=== PATIENT | male | born 1965 | race Caucasian/White ===

== ENCOUNTER 2022-10-28 14:09 | Emergency (ER) | payer OTHER, SELFPAY ==
[2022-10-28 15:26] LABS: Absolute Lymphocytes (CBC) 2.2 K/uL (0.7-4.9); Hematocrit 38.6 % (39.6-49.0); Lymphocytes % 24.2 % (15.3-44.8); MPV 8.7 fL (7.6-11.3); RBC Red Blood Cell Count 4.33 M/uL (4.33-5.43)
--- NOTE | 2022-10-28 15:34 | RAD REPORT ---
EXAM DESCRIPTION: [facility] Single View10/28/2022 3:12 pm CLINICAL HISTORY: Chest pain FINDINGS: Mild bilateral pulmonary opacities. Heart is normal size IMPRESSION: Mild bilateral pulmonary opacities represent pulmonary edema or pneumonia
[2022-10-28 15:44] LABS: Potassium 4.2 mmol/L (3.5-5.1); Troponin High Sensitivity 22.5 pg/mL (<58.9)
[2022-10-28 16:03] LABS: SARS-COV-2 RT PCR NEGATIVE (NEGATIVE)
--- NOTE | 2022-10-28 18:26 | RAD REPORT ---
EXAM DESCRIPTION: CT - Chest For Pe Angio - 10/28/2022 6:07 pm CLINICAL HISTORY: Chest pain COMPARISON: None. TECHNIQUE: Dynamically enhanced axial 3 mm thick images of the chest were obtained during administra tion of <100> mL Isovue 370 IV contrast. Coronal and oblique reconstruction images were generated and reviewed. Exam utilizes a protocol for optimal evaluation of pulmonary arterial tree. Maximum intensity projections 3D imaging was utilized All CT scans are performed using dose optimization technique as appropriate and may include automated exposure control or mA/KV adjustment according to patient size. FINDINGS: A pulmonary embolus is not seen. A thoracic aortic aneurysm is not noted. Small bilateral pleural effusions. A pericardial effusion is not seen. Mild bilateral interstitial lung opacities. Cardiomegaly IMPRESSION: Negative for a pulmonary embolism. Mild CHF
--- NOTE | 2022-10-28 18:30 | RAD REPORT ---
EXAM DESCRIPTION: CT - Abdomen Pelvis W Contrast - 10/28/2022 6:07 pm CLINICAL HISTORY: Abdominal pain TECHNIQUE: Computed axial tomography of the abdomen pelvis was obtained. 100 cc Isovue-300 was admin istered intravenously. Oral contrast was not requested which limits evaluation of bowel and appendix All CT scans are performed using dose optimization technique as appropriate and may include automated exposure control or mA/KV adjustment according to patient size. FINDINGS: The liver, spleen, pancreas, adrenal and kidneys appear unremarkable. There is no evidence of diverticulitis. Cholelithiasis. Large right and small left inguinal hernias contain fat Small umbilical hernia IMPRESSION: Cholelithiasis Large right inguinal hernia
--- NOTE | 2022-10-28 21:17 | EDPHYS ---
Physician Documentation [facility] Name: Lb Epstein Age: 57 yrs Sex: Male : 1965 Arrival Date: 10/28/2022 Time: 14:24 Bed 14 Private MD: ED Physician Rashawn Rivera HPI: 10/28 14:32 This 57 yrs old Male presents to ER via EMS with complaints of Chest Pain. [facility] 14:32 The patient or guardian reports chest pain that is located primarily in the substernal [facility] area. Onset: gradually. Is a 57-year-old male with history of coronary artery disease the presents emerged part with complaints of substernal chest pain beginning earlier today. Patient states he has been having a cough for approximately a week today began to feel some tingling on the left side of his chest. Patient does have a history of 2 stents.. Historical: - Allergies: 14:28 Morphine; headaches, hives; ph - PMHx: 14:28 Hypertensive disorder; [place]; ph - PSHx: 14:28 Cardiac stents x2; ph - Immunization history:: Adult Immunizations unknown. - Social history:: Smoking status: Patient reports the use of cigarette tobacco products, smokes one-half pack cigarettes per day. ROS: 14:32 Constitutional: Negative for fever, chills, and weight loss. jmm 14:32 Cardiovascular: Positive for chest pain. 14:32 Respiratory: Positive for cough. 14:32 All other systems are negative. Exam: 14:32 Constitutional: This is a well developed, well nourished patient who is awake, alert, jmm and in no acute distress. Head/Face: atraumatic. Eyes: EOMI, no conjunctival erythema appreciated ENT: Moist Mucus Membranes Neck: Trachea midline, Supple Chest/axilla: Normal chest wall appearance and motion. Cardiovascular: Regular rate and rhythm. No edema appreciated Respiratory: Normal respirations, no respiratory distress appreciated Abdomen/GI: Non distended Back: Normal ROM Skin: General appearance color normal MS/ Extremity: Moves all extremities, no obvious deformities appreciated, no edema noted to the lower extremities Neuro: Awake and alert Psych: Behavior is normal, Mood is normal, Patient is cooperative and pleasant Vital Signs: 14:24 BP 142 / 83; Pulse 95; Resp 18; Temp 98.0; Pulse Ox 98% on R/A; Weight 56.7 kg; Height ph 6 ft. 1 in. (185.42 cm); 15:00 BP 130 / 100; Pulse 75; Resp 16; Pulse Ox 98% ; db 16:00 BP 123 / 90; Pulse 86; Resp 16; Pulse Ox 99% on R/A; db 17:00 BP 132 / 96; Pulse 79; Resp 16; Pulse Ox 98% on R/A; db 21:30 BP 141 / 98; Pulse 94; Resp 17; Temp 98(O); Pulse Ox 100% ; Pain 0/10; ke1 14:24 Body Mass Index 16.49 (56.70 kg, 185.42 cm) ph MDM: 14:32 Patient medically screened. [facility] 20:05 Transition of care: After a detail discussion of the patient's case, care is rosanna transferred to Marti Hunter [facility]. 21:12 Data reviewed: vital signs, nurses notes. snw 21:14 ED course: awaiting troponin that was never rec'd in the lab. Pt upset. States he told snw previous provider that he has been out of his medications x 4 months.. 21:26 ECG:. The patient was given aspirin in the Emergency Department. snw 21:27 Special discussion: Based on the patient's history, exam, and Dx evaluation, there is snw no indication for emergent intervention or inpatient Tx. It is understood by the patient/guardian that if the Sx's persist or worsen they need to return immediately for re-evaluation. Pt declines admission, will refill medications, RTED precautions discussed and pt voices understanding. 10/28 14:33 Order name: Basic Metabolic Panel; Complete Time: 15:55 [facility] 10/28 14:33 Order name: CBC with Diff; Complete Time: 15:32 [facility] 10/28 14:33 Order name: Troponin HS; Complete Time: 15:55 [facility] 10/28 14:33 Order name: XRAY Chest (1 view); Complete Time: 15:38 [facility] 10/28 14:33 Order name: COVID-19/FLU A+B; Complete Time: 16:07 [facility] 10/28 18:31 Order name: Troponin High Sensitivity; Complete Time: 21:32 [facility] 10/28 14:33 Order name: EKG; Complete Time: 14:33 [facility] 10/28 14:33 Order name: Cardiac monitoring; Complete Time: 15:17 [facility] 10/28 17:23 Order name: CT Chest For PE Angio; Complete Time: 18:30 [facility] 10/28 17:23 Order name: CT Abd/Pelvis - IV Contrast Only; Complete Time: 18:31 [facility] 10/28 14:33 Order name: EKG - Nurse/Tech; Complete Time: 15:17 [facility] 10/28 14:33 Order name: IV Saline Lock; Complete Time: 15:17 [facility] 10/28 14:33 Order name: Labs collected and sent; Complete Time: 15:17 [facility] 10/28 14:33 Order name: O2 Per Protocol; Complete Time: 15:18 [facility] 10/28 14:33 Order name: O2 Sat Monitoring; Complete Time: 15:18 jmm EC:26 Rate is 86 beats/min. Rhythm is irregular. Q waves are Present in leads II, III, aVF. snw Clinical impression: NSR w/ Non-specific ST/T Changes and Abnormal EKG without significant change. Administered Medications: 21:25 Drug: LaSIX (furosemide) 20 mg Route: PO; ke1 21:25 Drug: Aspirin Chewable Tablet 324 mg Route: PO; ke1 21:25 Drug: PlaVIX (clopidogrel) 75 mg Route: PO; ke1 21:25 Drug: Metoprolol 25 mg Route: PO; ke1 Disposition: 10/29 08:13 Co-signature as Attending Physician, Rashawn Rivera MD I agree with the assessment and gael plan of care. Disposition Summary: 10/28/22 21:16 Discharge Ordered Location: Home snw Condition: Stable snw Diagnosis - Atherosclerotic heart disease of [place] coronary artery with angina pectoris snw - Patient's unintentional underdosing of medication regimen for other reason snw Followup: snw - With: Private Physician - When: 1 - 2 days - Reason: Recheck today's complaints, Continuance of care, Re-evaluation by your physician Followup: snw - With: Emergency Department - When: As needed - Reason: Worsening of condition Discharge Instructions: - Discharge Summary Sheet snw - Angina snw - Aspirin and Your Heart snw - Potassium Content of Foods snw Forms: - Medication Reconciliation Form snw - Thank You Letter snw - Antibiotic Education snw - Prescription Opioid Use snw Prescriptions: - Plavix 75 mg Oral Tablet - take 1 tablet by ORAL route once daily; 20 tablet; Refills: 0, Product snw Selection Permitted - atorvastatin 20 mg Oral tablet - take 1 tablet by ORAL route once daily; 30 tablet; Refills: 0, Product snw Selection Permitted - Metoprolol Tartrate 25 mg Oral Tablet - take 1 tablet by ORAL route 2 times per day with a meal; 20 tablet; Refills: 0, snw Product Selection Permitted - Hydrochlorothiazide 25 mg Oral Tablet - take 1 tablet by ORAL route once daily .; 30 tablet; Refills: 0, Product snw Selection Permitted Signatures: Dispatcher [employer] EDRashawn Upton MD MD cha Waters, Shelly, INSURANCE CLAIM AUDITOR-C INSURANCE CLAIM AUDITOR-Csnw Pio Penn PA PA jmm Hall, Patricia, RN RN Hiral Dixon RN RN ke1
--- NOTE | 2022-10-28 21:17 | ER ---
Nurse's Notes [facility] Name: Lb Epstein Age: 57 yrs Sex: Male : 1965 Arrival Date: 10/28/2022 Time: 14:24 Bed 14 Private MD: Diagnosis: Atherosclerotic heart disease of [place] coronary artery with angina pectoris;Patient's unintentional underdosing of medication regimen for other reason Presentation: 10/28 14:24 Chief complaint: EMS states: Pt c/o "chest soreness" and tingling radiating up L arm to ph neck, hx of CT and cardiac stents approx 2 years ago, has been prescribed multiple medications but has not taken them for "a few months" due to cost. 12 lead shows intermittent PVCs, VSS, IV established and placed on oxygen for comfort. Coronavirus screen: Vaccine status: Patient reports being unvaccinated. Ebola Screen: No symptoms or risks identified at this time. Initial Sepsis Screen: Does the patient meet any 2 criteria? No. Patient's initial sepsis screen is negative. Does the patient have a suspected source of infection? Yes:. Risk Assessment: Do you want to hurt yourself or someone else? Patient reports no desire to harm self or others. Onset of symptoms was October 28, 2022. 14:24 Method Of Arrival: EMS: [facility] 14:24 Acuity: JAVON 3 ph Triage Assessment: 14:28 General: Appears in no apparent distress. Behavior is calm, cooperative, appropriate ph for age, Denies fever, feeling ill. Pain: Complains of pain in chest. Neuro: Level of Consciousness is awake, alert, obeys commands, Oriented to person, place, time, situation. Cardiovascular: Reports chest pain, shortness of breath, Capillary refill < 3 seconds in bilateral fingers Patient's skin is warm and dry. Respiratory: Reports shortness of breath at rest worse when lying flat Airway is patent Respiratory effort is even, unlabored. Derm: Skin is healthy with good turgor, Skin is pink, warm \\T\\ dry. Musculoskeletal: Circulation, motion, and sensation intact. Range of motion: intact in all extremities. Historical: - Allergies: 14:28 Morphine; headaches, hives; ph - PMHx: 14:28 Hypertensive disorder; CT; ph - PSHx: 14:28 Cardiac stents x2; ph - Immunization history:: Adult Immunizations unknown. - Social history:: Smoking status: Patient reports the use of cigarette tobacco products, smokes one-half pack cigarettes per day. Screenin:29 Abuse screen: Denies threats or abuse. Denies injuries from another. Nutritional ph screening: No deficits noted. Tuberculosis screening: No symptoms or risk factors identified. Fall Risk None identified. Assessment: 15:18 Reassessment: Patient appears in no apparent distress at this time. Patient is alert, db oriented x 3, equal unlabored respirations, skin warm/dry/pink. complained of chest pain prior to arrival and took Nitro stat x 1. Denies pain at this time. states pain was radiating up to left neck. hx of cardiac stent. General: Appears in no apparent distress. comfortable, Behavior is calm, cooperative, appropriate for age, quiet. Pain: Pain radiates to left neck Pain began suddenly. Neuro: No deficits noted. Level of Consciousness is awake, alert, obeys commands, Oriented to person, place, time, situation, Appropriate for age Speech is normal, Facial symmetry appears normal, Pupils are PERRLA. Cardiovascular: No deficits noted. Respiratory: No deficits noted. Airway is patent Respiratory effort is even, unlabored, Respiratory pattern is regular, symmetrical. GI: No deficits noted. No signs and/or symptoms were reported involving the gastrointestinal system. 16:25 Reassessment: Patient appears in no apparent distress at this time. Patient and/or db family updated on plan of care and expected duration. Pain level reassessed. Patient is alert, oriented x 3, equal unlabored respirations, skin warm/dry/pink. Patient states feeling better. Patient states symptoms have improved. 17:00 Reassessment: Patient appears in no apparent distress at this time. Patient and/or db family updated on plan of care and expected duration. Pain level reassessed. Patient is alert, oriented x 3, equal unlabored respirations, skin warm/dry/pink. Patient is alert/active/playful, equal unlabored respirations, skin warm/dry/pink. Patient states feeling better. Patient states symptoms have improved. 17:00 Reassessment: Patient in CT. db 17:30 Reassessment: patient ambulatory in hallway. O2 saturation 95% during and after db ambulation on room air. HR 110 Notified provider. 20:00 Reassessment: Patient denies pain at this time. Patient states feeling better. ke1 21:32 Reassessment: Patient states feeling better. Patient states symptoms have improved. ke1 Vital Signs: 14:24 BP 142 / 83; Pulse 95; Resp 18; Temp 98.0; Pulse Ox 98% on R/A; Weight 56.7 kg; Height ph 6 ft. 1 in. (185.42 cm); 15:00 BP 130 / 100; Pulse 75; Resp 16; Pulse Ox 98% ; db 16:00 BP 123 / 90; Pulse 86; Resp 16; Pulse Ox 99% on R/A; db 17:00 BP 132 / 96; Pulse 79; Resp 16; Pulse Ox 98% on R/A; db 21:30 BP 141 / 98; Pulse 94; Resp 17; Temp 98(O); Pulse Ox 100% ; Pain 0/10; ke1 14:24 Body Mass Index 16.49 (56.70 kg, 185.42 cm) ph ED Course: 14:24 Patient arrived in ED. ph 14:25 Pio Penn PA is PHCP. jmm 14:25 Rashawn Rivera MD is Attending Physician. jmm 14:28 Triage completed. ph 14:29 Clover Guerra, RN is Primary Nurse. 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 14:30 Patient has correct armband on for positive identification. Bed in low position. Call ph light in reach. Side rails up X2. Client placed on continuous cardiac and pulse oximetry monitoring. NIBP monitoring applied. Door closed. Noise minimized. Warm blanket given. Pillow given. 15:00 Maintain EMS IV. Dressing intact. Site clean \\T\\ dry. Gauge \\T\\ site: 20G left AAC. db 15:14 XRAY Chest (1 view) In Process Unspecified. EDMS 15:17 Basic Metabolic Panel Sent. rs5 15:17 CBC with Diff Sent. rs5 15:18 Troponin HS Sent. rs5 15:18 COVID-19/FLU A+B Sent. rs5 18:08 CT Chest For PE Angio In Process Unspecified. EDMS 18:08 CT Abd/Pelvis - IV Contrast Only In Process Unspecified. EDMS 19:00 Patient maintains SpO2 saturation greater than 95% on room air. ke1 20:39 Primary Nurse role handed off by Clover Guerra RN mw2 20:42 PHCP role handed off by Pio Penn PA snw 20:42 Marti Hunter FNP-C is PHCP. snw 20:56 Hiral Calabrese, RN is Primary Nurse. ke1 21:33 No provider procedures requiring assistance completed. IV discontinued. ke1 Administered Medications: 21:25 Drug: LaSIX (furosemide) 20 mg Route: PO; ke1 21:25 Drug: Aspirin Chewable Tablet 324 mg Route: PO; ke1 21:25 Drug: PlaVIX (clopidogrel) 75 mg Route: PO; ke1 21:25 Drug: Metoprolol 25 mg Route: PO; ke1 Medication: 14:29 VIS not applicable for this client. ph Outcome: 21:16 Discharge ordered by MD. snw 21:38 Discharged to home ambulatory. ke1 21:38 Condition: good 21:38 Discharge instructions given to patient. 21:39 Patient left the ED. ke1 Signatures: Dispatcher [employer] EDMS Marti Hunter FNP-C PUBLIC ACCOUNTANT-Csnw Pio Penn PA PA jmm Hall, Patricia, RN RN Isaak Wilde mw2 Hiral Calabrese RN RN ke1 Clover Guerra, RN GABBIE Elver Saldivar rs5
[2022-10-28] MEDS ORDERED: ASPIRIN 81 MG CHEWABLE TABLET ONE (21:24)
[2022-10-28] MEDS ORDERED: FUROSEMIDE 20 MG TABLET ONE (21:24)
[2022-10-28] MEDS ORDERED: CLOPIDOGREL 75 MG TABLET ONE (21:24)
[2022-10-28] MEDS ORDERED: METOPROLOL TAR 25 MG TAB ONE (21:25)
[2022-10-28 21:58] VITALS: BP 141/98; TEMP 98; O2SAT 100
--- NOTE | 2022-10-30 13:51 | EKG ---
Test Date: 2022-10-28 Test Time: 14:25:58 President And Ceo: PEE MEASUREMENT RESULTS: Intervals: Rate: 86 WA: 146 QRSD: 84 QT: 408 QTc: 488 [place]: P: 51 [place]: 146 QRS: -19 T: 9 INTERPRETIVE STATEMENTS: Sinus rhythm with frequent premature ventricular complexes Possible Left atrial enlargement Inferior infarct, age undetermined Abnormal ECG Compared to ECG 09/06/2017 14:54:19 Ventricular premature complex(es) now present Myocardial infarct finding now present Electronically Signed On 10-30-22 13:49:40 ELEMENT WINDING MACHINE TENDER by Bryan Dejesus
== END 2022-10-28 21:39 | disposition home or self-care (01) ==
LOC: ER 14:09
DX: I25.119 Atherosclerotic heart disease of native coronary artery with unspecified angina pectoris (principal); Z91.138 Patient's unintentional underdosing of medication regimen for other reason; I10 Essential (primary) hypertension; F17.210 Nicotine dependence, cigarettes, uncomplicated; Z20.822 Contact with and (suspected) exposure to COVID-19; Z95.818 Presence of other cardiac implants and grafts; Z88.5 Allergy status to narcotic agent
CPT/HCPCS: 0240U; 36415; 71045; 71275; 74177; 80048; 84484; 85025; 93005; 99284; Q9967

== ENCOUNTER 2022-10-29 03:46 | Inpatient (IN) | payer OTHER, SELFPAY ==
--- NOTE | 2022-10-29 03:53 | EDPHYS ---
Physician Documentation [facility] Name: Lb Epstein Age: 57 yrs Sex: Male : 1965 Arrival Date: 10/29/2022 Time: 03:47 Bed 8 Private MD: ED Physician Christopher Baum HPI: 10/29 03:53 This 57 yrs old Male presents to ER via EMS with complaints of CHEST PAIN, SHORTNESS OF ms3 BREATH. 03:53 The patient has shortness of breath at rest, with light activity. Onset: The ms3 symptoms/episode began/occurred yesterday. Duration: The symptoms are continuous. The patient's shortness of breath is aggravated by exertion, is alleviated by nothing. Associated signs and symptoms: Pertinent positives: chest pain, non-productive cough, diaphoresis, Pertinent negatives: nausea, vomiting. Severity of symptoms: At their worst the symptoms were moderate in the emergency department the symptoms are unchanged Pain is currently a 5 / 10. Patient seen in the ED last night with 2 negative troponins. Patient wanted to be discharged. On arriving home his shortness of breath became worse.. Historical: - Allergies: 03:51 Morphine; headaches, hives; as6 - PMHx: 03:51 Hypertensive disorder; [place]; as6 - PSHx: 03:51 Cardiac stents x2; as6 - Immunization history:: Client reports having NOT received the Covid vaccine. Flu vaccine is not up to date. - Social history:: Smoking status: Patient reports the use of cigarette tobacco products, smokes one-half pack cigarettes per day. ROS: 03:53 Constitutional: Negative for fever, and chills. ENT: Negative for injury, pain, and ms3 discharge, Neck: Negative for injury, pain, and swelling. 03:53 MS/Extremity: Negative for injury and deformity, Skin: Negative for injury, rash, and discoloration. 03:53 Cardiovascular: Positive for chest pain. 03:53 Respiratory: Positive for dyspnea on exertion, shortness of breath. 03:53 All other systems are negative. Exam: 03:50 ECG was reviewed by the Attending Physician. ms3 03:53 Constitutional: This is a well developed, well nourished patient who is awake, alert, ms3 and in no acute distress. Head/Face: Normocephalic, atraumatic. Neck: Trachea midline, no cervical lymphadenopathy. Supple, full range of motion without nuchal rigidity, or vertebral point tenderness. No Meningismus. Chest/axilla: Normal chest wall appearance and motion. Nontender with no deformity. Cardiovascular: Regular rate and rhythm with a normal S1 and S2. No gallops, murmurs, or rubs. Normal PMI, no JVD. No pulse deficits. Respiratory: Lungs have equal breath sounds bilaterally, clear to auscultation and percussion. No rales, rhonchi or wheezes noted. No increased work of breathing, no retractions or nasal flaring. Abdomen/GI: Soft, non-tender, with normal bowel sounds. No distension or tympany. No guarding or rebound. No evidence of tenderness throughout. Back: No spinal tenderness. No costovertebral tenderness. Full range of motion. Skin: Warm, dry with normal turgor. Normal color with no rashes, no lesions, and no evidence of cellulitis. MS/ Extremity: Pulses equal, no cyanosis. Neurovascular intact. Full, normal range of motion. Vital Signs: 03:49 BP 125 / 78; Pulse 86; Resp 11 A; Temp 98.1(O); Pulse Ox 95% on R/A; Weight 102.06 kg as6 (R); Height 6 ft. 1 in. (185.42 cm) (R); Pain 6/10; 05:16 BP 107 / 73; Pulse 72; Resp 24 S; Pulse Ox 100% on R/A; as6 03:49 Body Mass Index 29.68 (102.06 kg, 185.42 cm) as6 MDM: 03:47 Patient medically screened. ms3 03:53 Differential diagnosis: CHF exacerbation, Chronic Obstructive Pulmonary Disease ms3 Myocardial Infarction pulmonary edema. Data reviewed: vital signs, nurses notes, EKG, and as a result, I will admit patient. Counseling: I had a detailed discussion with the patient and/or guardian regarding: the historical points, exam findings, and any diagnostic results supporting the discharge/admit diagnosis, the need for further work-up and treatment in the hospital. ED course: Labs and imaging from last night reviewed. Patient with initial troponin of 22.5 at 1544, troponin of 27.8 and 2130. Chest x-ray showed bilateral opacities suggesting pulmonary edema or pneumonia. CT PE did not show pulmonary embolism, did reveal mild congestive heart failure. Discussed necessity for admission with patient and he understands and agrees with plan. All questions were answered. Discussed case with ABRAM Shirley, and she accepts patient on her behalf of Dr. Azevedo. 12 03:47 Order name: Troponin High Sensitivity; Complete Time: 04:53 ms3 10/29 03:50 Order name: BNP ms3 10/29 03:47 Order name: EKG; Complete Time: 03:48 ms3 10/29 03:47 Order name: EKG - Nurse/Tech; Complete Time: 03:52 ms3 10/29 03:55 Order name: SARS RAPID tw5 EC:50 Rate is 74 beats/min. Rhythm is regular. Left axis deviation noted. NM interval is ms3 normal. QRS interval is normal. QT interval is normal. Clinical impression: NSR w/ Non-specific ST/T Changes. Interpreted by me. Reviewed by me. Administered Medications: 05:06 Drug: Lasix (furosemide) 40 mg Route: IVP; Site: right forearm; as6 05:18 Follow up: Response: No adverse reaction as6 Disposition Summary: 10/29/22 03:52 Hospitalization Ordered Hospitalization Status: Inpatient Admission ms3 Provider: Americo Azevedo ms3 [facility] ms3 Condition: Stable ms3 Problem: new ms3 Symptoms: are unchanged ms3 Bed/Room Type: Standard ms3 Room Assignment: 405(10/29/22 05:22) mw Diagnosis - Heart failure, unspecified ms3 - Shortness of breath ms3 - Anemia, unspecified ms3 - Chest pain, unspecified ms3 Forms: - Medication Reconciliation Form ms3 - SBAR form ms3 Signatures: Dispatcher [employer] Vidya Graham RN RN Christopher Sen DO DO ms3 Peter Gasca RN RN as6 Corrections: (The following items were deleted from the chart) 05: 03:52 ms3 mw
--- NOTE | 2022-10-29 03:53 | ER ---
Nurse's Notes [facility] Name: Lb Epstein Age: 57 yrs Sex: Male : 1965 Arrival Date: 10/29/2022 Time: 03:47 Bed 8 Private MD: Diagnosis: Heart failure, unspecified;Shortness of breath;Anemia, unspecified;Chest pain, unspecified Presentation: 10/29 03:49 Chief complaint: EMS states: pt was seen in ER 10/28 for chest pain. provider wanted pt as6 to be admitted but pt wanted to be discharged. pt called EMS for worsening symptoms. Coronavirus screen: At this time, the client does not indicate any symptoms associated with coronavirus-19. Ebola Screen: No symptoms or risks identified at this time. Initial Sepsis Screen: Does the patient meet any 2 criteria? No. Patient's initial sepsis screen is negative. Does the patient have a suspected source of infection? No. Patient's initial sepsis screen is negative. Risk Assessment: Do you want to hurt yourself or someone else? Patient reports no desire to harm self or others. Onset of symptoms was September 28, 2022. 03:49 Method Of Arrival: EMS: [facility] as6 03:49 Acuity: JAVON 3 as6 Historical: - Allergies: 03:51 Morphine; headaches, hives; as6 - PMHx: 03:51 Hypertensive disorder; NE; as6 - PSHx: 03:51 Cardiac stents x2; as6 - Immunization history:: Client reports having NOT received the Covid vaccine. Flu vaccine is not up to date. - Social history:: Smoking status: Patient reports the use of cigarette tobacco products, smokes one-half pack cigarettes per day. Screenin:52 Abuse screen: Denies threats or abuse. Denies injuries from another. Nutritional as6 screening: No deficits noted. Tuberculosis screening: No symptoms or risk factors identified. Fall Risk None identified. Assessment: 03:53 General: Appears uncomfortable, Behavior is calm, cooperative. Pain: Complains of pain as6 in chest. Neuro: Level of Consciousness is awake, alert, obeys commands, Oriented to person, place, time, situation. Cardiovascular: Reports chest pain, shortness of breath. Respiratory: Reports cough that is. Vital Signs: 03:49 BP 125 / 78; Pulse 86; Resp 11 A; Temp 98.1(O); Pulse Ox 95% on R/A; Weight 102.06 kg as6 (R); Height 6 ft. 1 in. (185.42 cm) (R); Pain 6/10; 05:16 BP 107 / 73; Pulse 72; Resp 24 S; Pulse Ox 100% on R/A; as6 03:49 Body Mass Index 29.68 (102.06 kg, 185.42 cm) as6 ED Course: 03:47 Patient arrived in ED. mw2 03:47 Christopher Baum DO is Attending Physician. ms3 03:49 Peter Gasca, GABBIE is Primary Nurse. as6 03:51 Triage completed. as6 03:52 Americo Azevedo is Hospitalizing Provider. ms3 03:52 Arm band placed on. as6 03:53 Placed in gown. Bed in low position. Call light in reach. Side rails up X2. as6 03:54 No provider procedures requiring assistance completed. as6 03:54 Patient admitted, IV remains in place. as6 04:02 Inserted saline lock: 20 gauge in right forearm, using aseptic technique. Blood as6 collected. Administered Medications: 05:06 Drug: Lasix (furosemide) 40 mg Route: IVP; Site: right forearm; as6 05:18 Follow up: Response: No adverse reaction as6 Medication: 03:54 VIS not applicable for this client. as6 Outcome: 03:52 Decision to Hospitalize by Provider. ms3 03:54 Admitted to ER Hold. Please see [facility] for further documentation. as6 03:54 Condition: stable 03:54 Instructed on the need for admit. 05:40 Patient left the ED. as6 Signatures: Isaak Wilde mw2 Christopher Baum DO DO ms3 Peter Gasca, RN RN as6
--- NOTE | 2022-10-29 04:04 | P.HP ---
Certification for Inpatient Patient admitted to: Inpatient With expected LOS: <2 Midnights Patient will require the following post-hospital care: None Practitioner: I am a practitioner with admitting privileges, knowledge of patient current condition, hospital course, and medical plan of care. Services: Services provided to patient in accordance with Admission requirements found in Title 42 Section 412.3 of the Code of Federal Regulations Patient History Date of Service: 10/29/22 Reason for admission: CHF, Chest Pain History of Present Illness: Patient is a 57 year old male with past medical history of hypertension and CAD who presented to the ED with complaints of chest pain and shortness of breath. patient was seen in this ED earlier this evening for chest pain and refused admission. He had 2 troponins that were negative. Chest CTA showed small bilateral pleural effusions. He was given 324 mg aspirin, lasix, plavix. He returns this morning with worsening shortness of breath. troponin is negative. BNP is 2567. Denies history of CHF. Does not have PCP or [employer]. EKG without ST changes. He was given 40 mg lasix in the ED and is now on 2L NC oxygen. Patient is admitted for further management. Allergies morphine Allergy (Unverified 09/06/17 17:58) Unknown Home medications list reviewed: Yes - Past Medical/Surgical History Diabetic: No -: CAD -: Hypertension -: Stents Psychosocial/ Personal History: Patient lives at home with his family. - Family History Family History: Reviewed- Non-Contributory - Social History Smoking Status: Current every day smoker Alcohol use: Yes CD- Drugs: No Caffeine use: Yes Place of Residence: Home Review of Systems Respiratory: Shortness of Breath Cardiovascular: Chest Pain Physical Examination - Vital Signs Temperature: 98.1 F Blood Pressure: 125/78 Pulse: 86 Respirations: 11 Pulse Ox (%): 95 - Physical Exam General: Alert, In no apparent distress HEENT: Atraumatic, PERRLA, EOMI, Sclerae nonicteric Neck: Supple, 2+ carotid pulse no bruit, No LAD, Without JVD or thyroid abnormality Respiratory: Clear to auscultation bilaterally, Normal air movement Cardiovascular: Regular rate/rhythm, Normal S1 S2 Gastrointestinal: Normal bowel sounds, No tenderness Musculoskeletal: No tenderness Integumentary: No rashes Neurological: Normal speech, Normal strength at 5/5 x4 extr, Normal tone, Normal affect Assessment and Plan - Problems (Diagnosis) (1) CAD (coronary artery disease) Current Visit: Yes Status: Acute Qualifiers: Coronary Disease-Associated Artery/Lesion type: [place] artery [place] vs. transplanted heart: [place] heart Associated angina: with unstable angina Qualified Code(s): I25.110 - Atherosclerotic heart disease of [place] coronary artery with unstable angina pectoris (2) CHF (congestive heart failure) Current Visit: Yes Status: Acute Qualifiers: Heart failure type: diastolic Heart failure chronicity: acute on chronic Qualified Code(s): I50.33 - Acute on chronic diastolic (congestive) heart failure (3) Hypertension Current Visit: Yes Status: Chronic Qualifiers: Hypertension type: primary hypertension Qualified Code(s): I10 - Essential (primary) hypertension (4) Tobacco abuse Current Visit: Yes Status: Chronic - Plan Cardiology consult. Echo ordered. No known history of CHF. BNP elevated with bilateral pleural effusions. 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 Received lasix in ED. Will monitor response. Will check lipid panel. Aspirin and atorvastatin daily. Monitor on telemetry. Replete electrolytes as needed, per protocol. Lovenox for VTE prophylaxis Full code. Discharge Plan: Home Plan to discharge in: 48 Hours - Advance Directives Does patient have a Living Will: No Does patient have a Durable POA for Healthcare: No - Code Status/Comfort Care Code Status Assessed: Yes Code Status: Full Code Critical Care: No Time Spent Managing Pts Care (In Minutes): 50
[2022-10-29] MEDS ORDERED: FUROSEMIDE 40 MG/4 ML VIAL ONE (05:04)
[2022-10-29] MEDS ORDERED: NITROGLYCERIN 0.4 MG/TAB SL PRN (05:10)
[2022-10-29] MEDS ORDERED: ALBUTEROL 2.5 MG/3 ML NEB SOL NEB PRN (05:10)
[2022-10-29] MEDS ORDERED: ONDANSETRON 4 MG/2 ML VIAL IV PRN (05:10)
[2022-10-29] MEDS ORDERED: ACETAMINOPHEN 325 MG TABLET PO PRN (05:15)
[2022-10-29 06:09] VITALS: BMI 29.7
[2022-10-29] MEDS ORDERED: INFLUENZA VACCINE (for 6+ mo) 0.5 ML DOSE IMVAC ONE (10:00)
[2022-10-29] MEDS: ASPIRIN EC 81 MG TAB PO SCH (10:58)
[2022-10-29] MEDS: ENOXAPARIN 40 MG/0.4 ML SQ SCH (10:58)
--- NOTE | 2022-10-29 14:52 | P.PN ---
Date of Service: 10/29/22 Patient seen and examined. He currently has no complaint. He denies any chest pain or shortness of breath. Troponin trended negative. Patient seen by cardiology-Dr. Cartagena recommend nuclear stress test tomorrow. Continue aspirin, statin. Cannot give beta-naif because patient is bradycardic. Echocardiogram is pending.
[2022-10-29] MEDS ORDERED: BENZONATATE 100 MG CAP PO PRN (19:57)
[2022-10-29] MEDS: ATORVASTATIN 40 MG TAB PO SCH (20:47)
[2022-10-30] MEDS ORDERED: MELATONIN 5 MG TABLET PO PRN (00:07)
[2022-10-30] MEDS ORDERED: REGADENOSON 0.4 MG/5 ML SYR IV ONE (07:40)
[2022-10-30] MEDS: ENOXAPARIN 40 MG/0.4 ML SQ SCH (09:07)
[2022-10-30 09:08] LABS: Magnesium 2.2 mg/dL (1.8-2.4); Potassium 4.4 mmol/L (3.5-5.1)
[2022-10-30] MEDS: ASPIRIN EC 81 MG TAB PO SCH (09:08)
--- NOTE | 2022-10-30 11:50 | CON ---
Date of Consultation: 10/29/2022 Reason For Consultation: Atypical chest pain and congestive heart failure. History Of Present Illness: The patient is 57. Has a history of coronary artery disease, status pos t PCI x2. Has a history of hypertension. Came in with congestive heart failure, BNP 2567, atypical chest pain, left-sided, pleuritic. No nausea, vomiting, diaphoresis. He denied PND, orthopnea. Has had pedal edema. He denied palpitation, syncope, fever, or chills. He does not follow up with any primary care. Allergies: HE IS ALLERGIC TO MORPHINE. Medications: At home were none. Review of Systems: Negative. Social History: Negative. Family History: Negative. Physical Examination: Vital Signs: Stable, afebrile. HEENT: Negative. Neck: Supple with no bruit. Chest: Clear. Cardiac: Revealed a regular rhythm and rate. No murmurs, gallops, or rubs. Abdomen: Benign. Extremities: Revealed no clubbing, cyanosis, or edema. Diagnostic Data: Include a BNP of 2567. X-ray showed mild failure. EKG is normal. Troponin is nor mal. Impression And Plan: 1.History of coronary artery disease, status post 2 stents. 2.History of hypertension. 3.New onset congestive heart failure, probably diastolic. The patient is presently on aspirin, inha lers, Lipitor, Lovenox. Echocardiogram is pending. Lexiscan is pending. We will see what those brain ws prior to making any further decisions. DERIC/THEO Voice ID: [id number] Report ID: [id number]
--- NOTE | 2022-10-30 12:13 | RAD REPORT ---
EXAM DESCRIPTION: NM - Rest Stress Cardiac Imaging - 10/30/2022 11:44 am CLINICAL HISTORY: Chest pain, history of cardiac stent COMPARISON: None. TECHNIQUE: The patient was administered 9.6 mCi of Tc 99m Sestamibi prior to resting SPECT imaging o f the heart. The patient was then administered 27.4 mCi of Tc 99m Sestamibi following exercise or pha rmacologic stress. Multiplanar SPECT images were reviewed. FINDINGS: The end diastolic volume is 156 ml, the end systolic volume is 133 ml, and the ejection fr action is 14 %. Exam was technically very difficult due to ventriculomegaly. There is low confidence in the calculate d ventricular volumes and ejection fraction. On visual inspection the left ventricle is much larger t olson the calculated 156 mL volume. Due to its size, it was difficult to incorporate the entirety of th e left ventricle into the [id number] No stress ischemic foci could be confirmed on this study. There is a small fixed defect anteroseptal wall near the apex. A very large defect is seen involving the entirety of the inferior wall. This is probably scarring ; however, the inferior wall may have been partially excluded from the field of vie w due to the ventriculomegaly. IMPRESSION: No stress ischemic foci were identifiable. Exam was technically very difficult to perform due to ventriculomegaly. There appears to be a very la rge fixed defect involving the entire inferior wall ; however, portions of the wall may have been exc luded from the [id number] due to overall ventricular size. EDV and ESV volume calculations detailed in the report are not considered to be accurate. Visually th e ventricle is much larger. The ejection fraction of 14% cannot be assumed to be accurate.
--- NOTE | 2022-10-30 13:48 | EKG ---
Test Date: 2022-10-29 Test Time: 03:50:35 Senior Linux Unix Administrator: LL MEASUREMENT RESULTS: Intervals: Rate: 74 MN: 158 QRSD: 86 QT: 444 QTc: 492 [place]: P: 26 MN: 158 QRS: -20 T: -9 INTERPRETIVE STATEMENTS: Sinus rhythm with frequent premature ventricular complexes Possible Left atrial enlargement Inferior infarct, age undetermined Abnormal ECG Compared to ECG 09/06/2017 14:54:19 Ventricular premature complex(es) now present Myocardial infarct finding now present Electronically Signed On 10-30-22 13:46:29 FINISHING AREA OPERATOR by Bryan Dejesus
--- NOTE | 2022-10-30 14:06 | TREADPHA ---
DX: CHEST PAIN Date of Study: 10/30/22 Ht: 6' 1 " Wt: 225 lb 0 oz Consulting Physician: HYACINTH MEDICATIONS: NO HOME MEDICATIONS HISTORY: 57 YEAR OLD MALE WITH COMPLAINTS OF CHEST PAIN. HISTORY OF SMOKING PACK/ DAY FOR OVER 15 YEARS. 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 FAMILY HISTORY OF CORONARY ARTERY DISEASE. PHYSICIAL EXAMINATION: RESTING B.P.: 114/68 RESTING H.R.: 75 RESTING EKG: NORMAL SINUS RHYTHM, INFERIOR ST DEPRESSION. PROTOCOL: LEXISCAN EXERCISE TIME: 3:30 B.P. AT [place]AK STRESS: 122/76 IMPRESSION: LEXISCAN GIVEN, CARDIOLITE INJECTED PER PROTOCOL. SEE NUCLEAR MEDICINE REPORT. PREMATURE VENTRICULAR COMPLEXES WITH PREMATURE ATRIAL COMPLEXES NOTED. DENIES INCREASE IN CHEST PAIN. NO SUPRA VENTRICULER TACHYCARDIA OR VENTRICULAR TACHYCARDIA NOTED. NO EKG CHANGES OF ISCHEMIA.
--- NOTE | 2022-10-30 18:13 | P.PN ---
Subjective Date of Service: 10/30/22 Chief Complaint: CHF, Chest Pain Patient has no new complaint. He denies any chest pain. Physical Examination - Vital Signs Temperature: 96.9 F Blood Pressure: 138/59 Pulse: 58 Respirations: 18 Pulse Ox (%): 94 Assessment And Plan - Current Problems (Diagnosis) (1) Cardiomyopathy Current Visit: Yes Status: Acute (2) Acute systolic heart failure Current Visit: Yes Status: Acute (3) CAD (coronary artery disease) Current Visit: Yes Status: Acute Qualifiers: Coronary Disease-Associated Artery/Lesion type: [place] artery [place] vs. transplanted heart: [place] heart Associated angina: with unstable angina Qualified Code(s): I25.110 - Atherosclerotic heart disease of [place] coronary artery with unstable angina pectoris (4) Hypertension Current Visit: Yes Status: Chronic Qualifiers: Hypertension type: primary hypertension Qualified Code(s): I10 - Essential (primary) hypertension (5) Acute renal failure Current Visit: Yes Status: Acute - Plan Physical Exam General: Alert, In no apparent distress Neck: Supple, no elevated JVD. Respiratory: Clear to auscultation bilaterally, Normal air movement Cardiovascular: Regular rate/rhythm, Normal S1 S2 Gastrointestinal: Normal bowel sounds, No tenderness Musculoskeletal: No tenderness Integumentary: No rashes Neurological: No focal motor deficit. Plan: Nuclear stress test shows fixed defect. No stress-induced ischemia. It also demonstrated cardiomegaly and markedly reduced EF. Echocardiogram is pending. Okay to discharge per cardiology-Dr. Cartagena. Noted increasing creatinine level compared to yesterday. Patient given a dose of IV Lasix. No more Lasix since admission. He appears compensated for CHF. Repeat renal function in the a.m. and discharge if stable. Patient with reduced LV function. He will need Coreg but he is currently bradycardic. So no Coreg for now. We will also hold lisinopril given rising creatinine level. Blood pressures well controlled.
[2022-10-30] MEDS: ATORVASTATIN 40 MG TAB PO SCH (20:39)
[2022-10-31 04:33] LABS: Absolute Lymphocytes (CBC) 2.6 K/uL (0.7-4.9); Hematocrit 39.6 % (39.6-49.0); Lymphocytes % 27.3 % (15.3-44.8); MCV 88.3 fL (80-100); MPV 9.2 fL (7.6-11.3); RBC Red Blood Cell Count 4.48 M/uL (4.33-5.43)
[2022-10-31 04:50] LABS: Potassium 3.8 mmol/L (3.5-5.1)
[2022-10-31 05:10] LABS: Blood Morphology Comment NOT SEEN (NOT SEEN); Platelet Estimate ADEQ
[2022-10-31] MEDS ORDERED: POTASSIUM CL SA 10 MEQ TAB PO ONE (06:25)
[2022-10-31 08:02] VITALS: BP 139/67; TEMP 96.7
[2022-10-31] MEDS: ASPIRIN EC 81 MG TAB PO SCH (08:56)
[2022-10-31] MEDS: ENOXAPARIN 40 MG/0.4 ML SQ SCH (08:57)
--- NOTE | 2022-10-31 09:41 | ECHO ---
HEIGHT: 6 ft 1 in WEIGHT: 225 lb 0 oz DATE OF STUDY: 10/30/[address]: Julianna James 2-DIMENSIONAL: YES M.MODE: YES DOPPLER: YES COLOR FLOW: YES TDS: NO PORTABLE: NO DEFINITY: NO BUBBLE STUDY: NO DIAGNOSIS: CONGESTIVE HEART FAILURE CARDIAC HISTORY: CATHERIZATION: SURGERY: PROSTHETIC VALVE: PACEMAKER: MEASUREMENTS (cm) DIASTOLIC (NORMALS) SYSTOLIC (NORMALS) IVSd 1.0 (0.6-1.2) LA Diam 4.0 (1.9-4.0) LVEF 25-30% LVIDd 6.0 (3.5-5.7) LVIDs 5.1 (2.0-3.5) %FS 15% LVPWd 1.0 (0.6-1.2) Ao Diam 2.9 (2.0-3.7) 2 DIMENSIONAL ASSESSMENT: RIGHT ATRIUM: NORMAL LEFT ATRIUM: ENLARGED RIGHT VENTRICLE: NORMAL LEFT VENTRICLE: DILATED LEFT VENTRICLE TRICUSPID VALVE: MODERATE TRICUSPID REGURGITATION MITRAL VALVE: MODERATE MITRAL REGURGITATION PULMONIC VALVE: NORMAL AORTIC VALVE: MILD AORTIC INSUFFICIENCY PERICARDIAL EFFUSION: NONE AORTIC ROOT: NORMAL LEFT VENTRICULAR WALL MOTION: SEVERE GLOBAL HYPOKINESIS. DOPPLER/COLOR FLOW: SEE BELOW. COMMENTS: 1. SEVERELY DEPRESSED LEFT VENTRICULAR EJECTION FRACTION 25-30%. 2. SEVERE GLOBAL HYPOKINESIS 3. MODERATE TO SEVERE MITRAL REGURGITATION. 4. MODERATE TRICUSPID REGURGITATION. 5. SEVERE PULMONARY HYPERTENSION WITH RIGHT VENTRICULAR SYSTOLIC PRESSURE GREATER THAN 60mmHg. 6. MILD AORTIC INSUFFICIENCY. TECHNOLOGIST: ROOSEVELT LYNCH
[2022-10-31 11:13] VITALS: O2SAT 90
--- NOTE | 2022-10-31 21:05 | P.DS ---
Admission Date: 10/29/22 Discharge Date: 10/31/22 Disposition: ROUTINE DISCHARGE Discharge Condition: FAIR Reason for Admission: CHF, Chest Pain Consultations: Cardiology - Dr. Cartagena Brief History of Present Illness: 57yo M, PMH: HTN, CAD Presented to ED with chest pain and shortness of breath. He was seen earlierin the day for chest pain and refused admission. He had troponins that were negative. CTA chest: small bilateral pleural effusions. He was given aspirin, plavix, and lasix. He returned with worsening SOB. Troponin negative. BNP 2567. Received 40mg IV lasix in the ED and placed on 2L NC O2. Hospital Course: Problem List Cardiomyopathy Acute on chronic systolic CHF CAD HTN HUNG Patient presented with chest pain and shortness of breath. Associated with some swelling of his feet. CT a few days prior noted CHF pattern and he had elevated BNP. Received IV lasix 40mg x1 in the ED with improvement. Cardiology was consulted. Stress test was negative for reversible ischemia, did not a fixed area likely related to prior cardiac event. Echocardiogram revealed EF: 25-30%, moderate-severe pulmonary hypertension, and moderate mitral regurgitation. Recommended no further inpatient workup. Continue aspirin, statin, and lasix (20mg daily). Follow up with Dr. Cartagena in the office in ~2 weeks. He was noted to have mild elevation in his Creatinine compared to a few days prior. 1.4 from 1.18. On day of discharge was back down to 1.3 suspected secondary to this CHF exacerbation. Heart rate was mostly in 50s, and blood pressure was low-normal, so patient was not started on a beta naif or shelley inhibitor. Follow up with PCP and [facility]. Consider starting these medications if vital signs tolerate. Patient would benefit from a cardiac catheterization in the near future. Discussed echo findings and concerns. Cardiology recommended outpatient cardiac catheterization. Can follow up with Dr. Cartagena. May need defibri llator/pacemaker if worsens. Patient concerned with cost, as he is uninsured. maintenance services dispatcher consulted to review options with patient. Follow up with PCP within 1 week Recommend repeat blood work - BMP to follow up on kidney function. Recommend smoking cessation. Vital Signs/Physical Exam: Temp Pulse Resp BP Pulse Ox 96.7 F L 46 L 16 139/67 90 L 10/31/22 08:00 10/31/22 08:00 10/31/22 08:00 10/31/22 08:00 10/31/22 08:00 General: Alert, In no apparent distress, Oriented x3 HEENT: EOMI, Sclerae nonicteric Neck: Supple, No LAD Respiratory: Clear to auscultation bilaterally, Normal air movement Cardiovascular: Regular rate/rhythm, Edema (trace b/l lower extremities) Gastrointestinal: Soft and benign, Non-distended, No tenderness Musculoskeletal: No contractures, No tenderness Integumentary: No rashes, No significant lesion Neurological: Normal speech, Normal strength at 5/5 x4 extr, Normal affect Laboratory Data at Discharge: WBC 9.60 K/uL (4.3-10.9) 10/31/22 03:56 Hgb 13.4 g/dL (13.6-17.9) L 10/31/22 03:56 Hct 39.6 % (39.6-49.0) 10/31/22 03:56 Plt Count 200 K/uL (152-406) 10/31/22 03:56 Sodium 140 mmol/L (136-145) 10/31/22 03:56 Potassium 3.8 mmol/L (3.5-5.1) D 10/31/22 03:56 BUN 24 mg/dL (7-18) H 10/31/22 03:56 Creatinine 1.32 mg/dL (0.55-1.3) H 10/31/22 03:56 Glucose 131 mg/dL (74-106) H 10/31/22 03:56 Phosphorus 3.3 mg/dL (2.5-4.9) 10/30/22 08:30 Magnesium 2.2 mg/dL (1.8-2.4) 10/30/22 08:26 Home Medications: Aspirin [Aspirin EC 81 MG] 81 mg PO DAILY #30 tab 10/30/22 Atorvastatin Calcium [Lipitor] 40 mg PO BEDTIME #30 tab 10/30/22 Furosemide [Lasix] 20 mg PO DAILY 30 Days #30 tab 10/31/22 New Medications: Aspirin [Aspirin EC 81 MG] 81 mg PO DAILY #30 tab Furosemide [Lasix] 20 mg PO DAILY 30 Days #30 tab Atorvastatin Calcium [Lipitor] 40 mg PO BEDTIME #30 tab Physician Discharge Instructions: Patient presented with chest pain and shortness of breath. Associated with some swelling of his feet. CT a few days prior noted CHF pattern and he had elevated BNP. Received IV lasix 40mg x1 in the ED with improvement. Cardiology was consulted. Stress test was negative for reversible ischemia, did not a fixed area likely related to prior cardiac event. Echocardiogram revealed EF: 25-30%, moderate-severe pulmonary hypertension, and moderate mitral regurgitation. Recommended no further inpatient workup. Continue aspirin, statin, and lasix (20mg daily). Follow up with Dr. Cartagena in the office in ~2 weeks. He was noted to have mild elevation in his Creatinine compared to a few days prior. 1.4 from 1.18. On day of discharge was back down to 1.3 suspected secondary to this CHF exacerbation. Heart rate was mostly in 50s, and blood pressure was low-normal, so patient was not started on a beta naif or shelley inhibitor. Follow up with PCP and [facility]. Consider starting these medications if vital signs tolerate. Patient would benefit from a cardiac catheterization in the near future. Discussed echo findings and concerns. Cardiology recommended outpatient cardiac catheterization. Can follow up with Dr. Cartagena. May need defibrillator/pacemaker if worsens. Patient concerned with cost, as he is uninsured. maintenance services dispatcher consulted to review options with patient. Follow up with PCP within 1 week Recommend repeat blood work - BMP to follow up on kidney function. Recommend smoking cessation. Followup: Unknown,U [Primary Care Provider] - Time spent managing pt's care (in minutes): 45
== END 2022-10-31 11:30 | disposition home or self-care (01) | DRG 291 ==
LOC: ER 03:46 → ERHOLD 03:59 → 4TH 05:26 → UNDODISIN 10-30 18:22
PROVIDERS: ADMIT Internal Medicine; ATTEND Hospitalist
DX: I11.0 Hypertensive heart disease with heart failure (principal); I50.23 Acute on chronic systolic (congestive) heart failure; N17.9 Acute kidney failure, unspecified; D64.9 Anemia, unspecified; I27.20 Pulmonary hypertension, unspecified; I34.0 Nonrheumatic mitral (valve) insufficiency; I43 Cardiomyopathy in diseases classified elsewhere; I25.110 Atherosclerotic heart disease of native coronary artery with unstable angina pectoris; F17.210 Nicotine dependence, cigarettes, uncomplicated; I25.2 Old myocardial infarction; Z95.5 Presence of coronary angioplasty implant and graft; Z88.8 Allergy status to other drugs, medicaments and biological substances; Z28.310 Unvaccinated for COVID-19; Z79.82 Long term (current) use of aspirin; Z79.899 Other long term (current) drug therapy
CPT/HCPCS: 36415; 78452; 80048; 83735; 83880; 84100; 84484; 85025; 93005; 93017; 93306; 94760; 96374; 99285; A9500; J1650; J1940; J2785

== ENCOUNTER 2022-12-05 00:09 | Observation (INO) | payer OTHER, SELFPAY ==
[2022-12-05] MEDS ORDERED: FUROSEMIDE 40 MG/4 ML VIAL ONE (00:50)
[2022-12-05 02:06] LABS: Absolute Lymphocytes (CBC) 2.5 K/uL (0.7-4.9); Hematocrit 40.2 % (39.6-49.0); Lymphocytes % 28.6 % (15.3-44.8); MPV 8.9 fL (7.6-11.3); RBC Red Blood Cell Count 4.62 M/uL (4.33-5.43)
[2022-12-05 02:22] LABS: Albumin 3.7 g/dL (3.4-5.0); Bilirubin Total 0.9 mg/dL (0.2-1.0); Potassium 4.1 mmol/L (3.5-5.1); Troponin High Sensitivity 35.9 pg/mL (<58.9)
[2022-12-05] MEDS ORDERED: FENTANYL CITR 100 MCG/2 ML ONE (02:34)
--- NOTE | 2022-12-05 03:22 | EDPHYS ---
Physician Documentation [facility] Name: Lb Epstein Age: 57 yrs Sex: Male : 1965 Arrival Date: 12/05/2022 Time: 00:20 Bed 7 Private MD: ED Physician Driss Aguila HPI: 12/05 02:36 This 57 yrs old Male presents to ER via EMS with complaints of Breathing Difficulty. rt 02:36 The patient has shortness of breath at rest. Onset: The symptoms/episode began/occurred rt gradually. Duration: The symptoms are chronic. The patient has experienced similar episodes in the past. Patient with history of CAD, CHF presents to the ED with progressively worsening dyspnea, orthopnea. The patient does report a chest pain. The patient states that he has not taken his medications due to being unable to afford them. The patient is other acute complaints at this time. Symptoms are moderate in severity, no other aggravating alleviating factors.. Historical: - Allergies: 00:31 Morphine; headaches, hives; tw5 - PMHx: 00:31 Hypertensive disorder; NC; tw5 - PSHx: 00:31 Cardiac stents x2; tw5 - Immunization history:: Flu vaccine is not up to date. - Social history:: Smoking status: Patient reports the use of cigarette tobacco products, smokes one-half pack cigarettes per day. - Family history:: not pertinent, pertinent for. ROS: 02:36 Constitutional: Negative for fever, chills, and weight loss, Eyes: Negative for injury, rt pain, redness, and discharge, ENT: Negative for injury, pain, and discharge, Abdomen/GI: Negative for abdominal pain, nausea, vomiting, diarrhea, and constipation, Back: Negative for injury and pain, MS/Extremity: Negative for injury and deformity, Skin: Negative for injury, rash, and discoloration, Neuro: Negative for headache, weakness, numbness, tingling, and seizure, Psych: Negative for depression, anxiety, suicide ideation, homicidal ideation, and hallucinations. 02:36 Cardiovascular: Positive for chest pain, edema. 02:36 Respiratory: Positive for dyspnea on exertion, orthopnea, shortness of breath. Exam: 02:36 Constitutional: This is a well developed, well nourished patient who is awake, alert, rt and in no acute distress. Head/Face: Normocephalic, atraumatic. Chest/axilla: Normal chest wall appearance and motion. Nontender with no deformity. No lesions are appreciated. Cardiovascular: Regular rate and rhythm with a normal S1 and S2. No gallops, murmurs, or rubs. Normal PMI, no JVD. No pulse deficits. Abdomen/GI: Soft, non-tender, with normal bowel sounds. No distension or tympany. No guarding or rebound. No evidence of tenderness throughout. Skin: Warm, dry with normal turgor. Normal color with no rashes, no lesions, and no evidence of cellulitis. Neuro: Awake and alert, GCS 15, oriented to person, place, time, and situation. Cranial nerves II-XII grossly intact. Motor strength 5/5 in all extremities. Sensory grossly intact. Cerebellar exam normal. Normal gait. Psych: Awake, alert, with orientation to person, place and time. Behavior, mood, and affect are within normal limits. 02:36 ECG was reviewed by the Attending Physician. 02:36 Respiratory: Respiratory distress, bibasilar crackles. 02:36 Musculoskeletal/extremity: 2+ lower extremity edema, symmetric. Vital Signs: 00:28 BP 124 / 96; Pulse 89; Resp 22; Temp 97.2; Pulse Ox 96% on R/A; Weight 108.86 kg; tw5 Height 6 ft. 1 in. (185.42 cm); Pain 8/10; 01:57 BP 121 / 96; Pulse 95; Resp 22 S; Pulse Ox 92% on R/A; as6 00:28 Body Mass Index 31.66 (108.86 kg, 185.42 cm) tw5 MDM: 00:37 Patient medically screened. rt 03:21 Differential diagnosis: Anemia CHF exacerbation, Chronic Obstructive Pulmonary Disease rt pneumonia, Pneumothorax Pulmonary Embolism. Data reviewed: vital signs, nurses notes, old medical records. Consideration of Admission/Observation Patient was admitted/placed on observation. Management of patient was discussed with the following: Hospitalist: Joana. Independent interpretation of the following test(s) in the Emergency Department X-Ray: My interpretation is pulmonary edema. Care significantly affected by the following chronic conditions: Hypertension, Congestive Heart Failure, Obesity. Care significantly affected by the following Social Determinants of Health: Poor access to healthcare and/or lack of insurance. Response to treatment: the patient's symptoms have mildly improved after treatment. 12/05 00:36 Order name: CBC with Diff; Complete Time: 02:13 rt 12/05 00:36 Order name: CMP; Complete Time: 02:27 rt 12/05 00:36 Order name: Troponin High Sensitivity; Complete Time: 02:27 rt 12/05 00:36 Order name: BNP; Complete Time: 02:27 rt 12/05 02:13 Order name: Chest Single View XRAY rt 12/05 03:35 Order name: COVID-19/FLU A+B; Complete Time: 04:54 rt 12/05 00:36 Order name: EKG; Complete Time: 00:37 rt 12/05 00:36 Order name: EKG - Nurse/Tech; Complete Time: 01:02 rt 12/05 01:23 Order name: Labs - recollect needed: all lab needed; Complete Time: 01:54 mw2 EC:36 Rate is 86 beats/min. Rhythm is regular, Normal Sinus Rhythm with Occasional PVCs. Left rt axis deviation noted. RI interval is normal. QRS interval is normal. QT interval is normal. No Q waves. Clinical impression: NSR w/ Non-specific ST/T Changes. Interpreted by me. Administered Medications: 01:04 Drug: Lasix (furosemide) 40 mg Route: IVP; Site: right forearm; tw5 01:57 Follow up: Response: No adverse reaction as6 02:34 Drug: fentaNYL (PF) 50 mcg Route: IVP; Site: right forearm; as6 04:43 Follow up: Response: No adverse reaction as6 Disposition Summary: 12/05/22 03:21 Hospitalization Ordered Hospitalization Status: Observation rt Provider: Americo Aezvedo rt Condition: Fair rt Problem: an acute exacerbation rt Symptoms: have improved rt Bed/Room Type: Standard rt Location: Telemetry/MedSurg (observation)(12/05/22 06:26) cg Room Assignment: 425(12/05/22 07:06) Diagnosis - Unspecified systolic (congestive) heart failure rt - Acute respiratory failure with hypoxia rt Forms: - Medication Reconciliation Form rt - SBAR form rt Signatures: Dispatcher [employer] Stacie Brown RN RN ss Sophia Newman RN RN Isaak Montenegro mw2 Irene Rodriguez tw5 Peter Gasca, RN RN as6 Julianna James PA-C PARuperto sb4 Driss Aguila MD MD rt Corrections: (The following items were deleted from the chart) : 03:21 Telemetry/MedSurg (observation) rt cg : 03:21 rt cg : 04:15 [facility] ER HOLD cg cg : 04:15 ERHOLD- cg cg 07: 06:26 cg ss
--- NOTE | 2022-12-05 03:22 | ER ---
Nurse's Notes [facility] Name: Lb Epstein Age: 57 yrs Sex: Male : 1965 Arrival Date: 12/05/2022 Time: 00:20 Bed 7 Private MD: Diagnosis: Unspecified systolic (congestive) heart failure;Acute respiratory failure with hypoxia Presentation: 12/05 00:28 Chief complaint: Patient states: "I was in here a week before Victor. They diagnosed tw5 me with CHF. I cannot afford the meds, I am homeless. They gave me shot that helped take the liquid off my heart, but not it has returned with vengeance.". Coronavirus screen: Vaccine status: Patient reports being unvaccinated. Ebola Screen: Patient negative for fever greater than or equal to 101.5 degrees Fahrenheit, and additional compatible Ebola Virus Disease symptoms Patient denies exposure to infectious person. Patient denies travel to an Ebola-affected area in the 21 days before illness onset. Initial Sepsis Screen: Does the patient meet any 2 criteria? No. Patient's initial sepsis screen is negative. Does the patient have a suspected source of infection? No. Patient's initial sepsis screen is negative. Risk Assessment: Do you want to hurt yourself or someone else? Patient reports no desire to harm self or others. Onset of symptoms is unknown. 00:28 Method Of Arrival: EMS: [facility] tw5 00:28 Acuity: JAVON 2 tw5 Triage Assessment: 00:31 General: Appears uncomfortable, Behavior is appropriate for age. Pain: Complains of tw5 pain in abdomen Pain currently is 8 out of 10 on a pain scale. Respiratory: Reports shortness of breath at rest Onset: The symptoms/episode began/occurred gradually, the patient has moderate shortness of breath. Historical: - Allergies: 00:31 Morphine; headaches, hives; tw5 - PMHx: 00:31 Hypertensive disorder; IL; tw - PSHx: 00:31 Cardiac stents x2; tw5 - Immunization history:: Flu vaccine is not up to date. - Social history:: Smoking status: Patient reports the use of cigarette tobacco products, smokes one-half pack cigarettes per day. - Family history:: not pertinent, pertinent for. Screenin:35 [facility] ED Fall Risk Assessment (Adult) History of falling in the last 3 months, tw5 including since admission Yes- physiologic fall (2 pts). Abuse screen: Denies threats or abuse. Denies injuries from another. Nutritional screening: No deficits noted. Tuberculosis screening: No symptoms or risk factors identified. Assessment: 00:35 Respiratory: Airway is patent Respiratory effort is labored, Breath sounds with tw5 crackles bilaterally. 01:04 Cardiovascular: Rhythm is. tw5 02:01 Pain: Complains of pain in "everywhere". Cardiovascular: Edema is 2+ to generalized. as6 GI: Abdomen is round distended. Vital Signs: 00:28 BP 124 / 96; Pulse 89; Resp 22; Temp 97.2; Pulse Ox 96% on R/A; Weight 108.86 kg; tw5 Height 6 ft. 1 in. (185.42 cm); Pain 8/10; 01:57 BP 121 / 96; Pulse 95; Resp 22 S; Pulse Ox 92% on R/A; as6 00:28 Body Mass Index 31.66 (108.86 kg, 185.42 cm) tw5 ED Course: 00:20 Patient arrived in ED. ja2 00:28 Arm band placed on right wrist. Patient Notified of possible 2 hour wait time. tw5 00:30 Driss Aguila MD is Attending Physician. rt 00:31 Triage completed. tw5 00:36 No provider procedures requiring assistance completed. tw5 01:01 Patient has correct armband on for positive identification. tw5 01:01 Initial lab(s) drawn, by me, sent to lab. Inserted saline lock: 20 gauge in right tw5 forearm, using aseptic technique. Blood collected. 01:01 Missed attempt(s): 20 gauge in right hand. Bleeding controlled, band aid applied, tw5 catheter tip intact. 01:01 BNP Sent. tw5 01:01 Troponin High Sensitivity Sent. tw5 01:01 CBC with Diff Sent. tw5 01:02 CMP Sent. tw5 01:45 Peter Gasca, GABBIE is Primary Nurse. as6 02:43 Chest Single View XRAY In Process Unspecified. EDMS 03:20 Americo Azevedo is Hospitalizing Provider. rt 04:03 COVID-19/FLU A+B Sent. mw1 04:42 Patient admitted, IV remains in place. as6 Administered Medications: 01:04 Drug: Lasix (furosemide) 40 mg Route: IVP; Site: right forearm; tw5 01:57 Follow up: Response: No adverse reaction as6 02:34 Drug: fentaNYL (PF) 50 mcg Route: IVP; Site: right forearm; as6 04:43 Follow up: Response: No adverse reaction as6 Medication: 04:42 VIS not applicable for this client. as6 Outcome: 03:21 Decision to Hospitalize by Provider. rt 04:42 Admitted to ER Hold. Please see [facility] for further documentation. as6 04:42 Condition: stable 04:42 Instructed on the need for admit. 07:49 Patient left the ED. ph Signatures: Dispatcher [employer] Eve Price RN RN Godfrey Humphries mw1 Suzanna Sun Tiffany tw5 Peter Gasca RN RN as6 Driss Aguila MD MD rt Corrections: (The following items were deleted from the chart) 00:36 00:28 Acuity: JAVON 3 tw5 tw5
--- NOTE | 2022-12-05 03:31 | P.HP ---
Certification for Inpatient Patient admitted to: Observation With expected LOS: <2 Midnights Patient will require the following post-hospital care: None Practitioner: I am a practitioner with admitting privileges, knowledge of patient current condition, hospital course, and medical plan of care. Services: Services provided to patient in accordance with Admission requirements found in Title 42 Section 412.3 of the Code of Federal Regulations Patient History Date of Service: 12/05/22 Reason for admission: CHF Exacerbation History of Present Illness: Patient is a 57 year old male with past medical history of hypertension, CAD, and systolic CHF who presented to the ED with complaints of chest pain and shortness of breath. He was diagnosed with systolic CHF about 1 month ago and was unable to follow up with cardiology or to fill his prescriptions- lasix, aspirin, atorvastatin- after discharge for financial reasons. He was noted to be tachypneic and saturating 92% on RA. Chest xray showed pulmonary congestion suggesting CHF. BNP is 3526. Trop negative. He was given 40 mg lasix in the ED. Patient is admitted for further management. Allergies morphine Allergy (Unverified 09/06/17 17:58) Unknown Home medications list reviewed: Yes Home Medications: Aspirin [Aspirin EC 81 MG] 81 mg PO DAILY #30 tab 10/30/22 Atorvastatin Calcium [Lipitor] 40 mg PO BEDTIME #30 tab 10/30/22 Furosemide [Lasix] 20 mg PO DAILY 30 Days #30 tab 10/31/22 - Past Medical/Surgical History Diabetic: No -: CAD/MD -: Hypertension -: Systolic CHF -: Stents Psychosocial/ Personal History: Patient is homeless. - Family History Family History: Reviewed- Non-Contributory - Social History Smoking Status: Current every day smoker Alcohol use: No CD- Drugs: No Caffeine use: Yes Place of Residence: Homeless Review of Systems Respiratory: Shortness of Breath, SOB with Excertion Cardiovascular: Chest Pain, Edema Physical Examination - Physical Exam General: Alert, In no apparent distress HEENT: Atraumatic, PERRLA, EOMI, Sclerae nonicteric Neck: Supple, 2+ carotid pulse no bruit Respiratory: Clear to auscultation bilaterally, Normal air movement Cardiovascular: Regular rate/rhythm, Normal S1 S2, Edema (2+ pitting edema bilateral ankles) Gastrointestinal: Normal bowel sounds, No tenderness Musculoskeletal: No tenderness Integumentary: No rashes Neurological: Normal speech, Normal strength at 5/5 x4 extr, Normal tone, Normal affect - Studies Laboratory Data (last 24 hrs) 12/05/22 01:47: Sodium 140, Potassium 4.1, BUN 22 H, Creatinine 1.36 H, Glucose 107 H, Total Bilirubin 0.9, AST 21, ALT 23, Alkaline Phosphatase 134 H 12/05/22 01:47: WBC 8.70, Hgb 13.3 L, Hct 40.2, Plt Count 161 Assessment and Plan - Problems (Diagnosis) (1) CHF (congestive heart failure) Current Visit: Yes Status: Chronic Qualifiers: Heart failure type: systolic Heart failure chronicity: acute on chronic Qualified Code(s): I50.23 - Acute on chronic systolic (congestive) heart failure (2) CAD (coronary artery disease) Current Visit: Yes Status: Chronic Qualifiers: Coronary Disease-Associated Artery/Lesion type: [place] artery [place] vs. transplanted heart: [place] heart Associated angina: without angina Qualified Code(s): I25.10 - Atherosclerotic heart disease of [place] coronary artery without angina pectoris (3) Hypertension Current Visit: Yes Status: Chronic Qualifiers: Hypertension type: primary hypertension Qualified Code(s): I10 - Essential (primary) hypertension (4) Tobacco abuse Current Visit: Yes Status: Chronic - Plan Patient is admitted for observation, CHF exacerbation. Cardiology consulted. Continue diuresis with IV lasix. Echo from 1 month ago EF 25-30%. Fluid restriction. Monitor intake and output. Daily weights. Tobacco cessation counseling. Nicoderm patch provided. Aspirin and atorvastatin daily. Monitor on telemetry. Replete electrolytes as needed, per protocol. Lovenox for VTE prophylaxis Full code. Discharge Plan: Home Plan to discharge in: 24 Hours - Advance Directives Does patient have a Living Will: No Does patient have a Durable POA for Healthcare: No - Code Status/Comfort Care Code Status Assessed: Yes Code Status: Full Code Physician Review: Patient Assessed, Agree with Above Assessment and Plan Critical Care: No Time Spent Managing Pts Care (In Minutes): 50
[2022-12-05] MEDS ORDERED: ALBUTEROL 2.5 MG/3 ML NEB SOL NEB PRN ×2 (04:40→15:00)
[2022-12-05 04:48] VITALS: BMI 31.6
[2022-12-05 04:51] LABS: SARS-COV-2 RT PCR NEGATIVE (NEGATIVE)
[2022-12-05] MEDS: FUROSEMIDE 40 MG/4 ML VIAL IV SCH ×2 (08:09→16:16)
[2022-12-05] MEDS: ASPIRIN EC 81 MG TAB PO SCH (08:10)
[2022-12-05] MEDS: ENOXAPARIN 40 MG/0.4 ML SQ SCH (08:10)
--- NOTE | 2022-12-05 14:22 | EKG ---
Test Date: 2022-12-05 Test Time: 00:44:32 Ring Stamper: MG MEASUREMENT RESULTS: Intervals: Rate: 86 OR: 154 QRSD: 90 QT: 396 QTc: 473 [place]: P: 50 OR: 154 QRS: -30 T: 15 INTERPRETIVE STATEMENTS: Sinus rhythm with occasional premature ventricular complexes Possible Left atrial enlargement Left axis deviation Inferior infarct, age undetermined Possible Anterior infarct, age undetermined Abnormal ECG Compared to ECG 10/29/2022 03:50:35 Left-axis deviation now present Myocardial infarct finding still present Electronically Signed On 12-05-22 14:21:31 DREDGE DECKHAND by Bryan Dejesus
--- NOTE | 2022-12-05 14:33 | RAD REPORT ---
EXAM DESCRIPTION: RAD - Chest Single View - 12/05/2022 2:41 am CLINICAL HISTORY: COUGH TECHNIQUE: Frontal view of the chest. COMPARISON: No relevant prior studies available. FINDINGS: Lungs: Mild central pulmonary vascular and interstitial prominence and patchy bilateral perihilar opacities. Pleural space: Blunting of the costophrenic angles bilaterally. No pneumothorax. Heart: The cardiac silhouette is mildly enlarged. Mediastinum: Unremarkable. Bones/joints: Mild multilevel spondylosis. No acute fracture. IMPRESSION: Findings which may be related to mild pulmonary congestion including possible small bila teral pleural effusions. Superimposed infection not excluded. Electronically signed by: Ino Santos MD 12/05/2022 3:11 AM SKIN DRIER Due to temporary technical issues with the PACS/Fluency reporting system, reports are being signed by the in house radiologists without review as a courtesy to insure prompt reporting. The interpreting radiologist is fully responsible for the content of the report.
--- NOTE | 2022-12-05 18:10 | CON ---
Date of Consultation: 12/05/[address] Azevedo on 12/05/2022. I saw the patient on 12/05/2022. Reason For Consultation: Congestive heart failure. History Of Present Illness: Mr. Epstein is 57. Has a known ejection fraction of 25% to 30% in [facility]2021. Has severe mitral regurgitation, severe pulmonary hypertension. Has a history of CAD, status post stent, hypertension. Comes in with PND, orthopnea, pedal edema. Denied chest pain, naus ea, vomiting, diaphoresis. He denied any palpitation, syncope, fever or chills. BNP was 3500, creat inine was 1.36. Chest x-ray shows CHF. EKG is nonspecific. The patient has diuresed well and is al ready feeling better. Past Medical History: As stated above. Allergies: HE IS ALLERGIC TO MORPHINE. Review of Systems: Negative. Social History: Negative. Family History: Negative. Medications: At home include aspirin, Lipitor, and Lasix. Physical Examination: Vital Signs: Stable, sinus rhythm. HEENT: Negative. Neck: Supple with no bruit. Chest: Revealed rales both bases. Cardiac: Revealed a regular rhythm and rate with mitral regurgitation murmur, tricuspid regurgitatio n murmur, S3 gallops. Abdomen: Benign. Extremities: Revealed 2+ edema to the knees. Diagnostic Data: As stated earlier. Impression And Plan: 1.Acute on chronic systolic congestive heart failure. 2.Severe mitral regurgitation. 3.Severe pulmonary hypertension. 4.Coronary artery disease, status post stents. 5.Hypertension. The patient should be on a much better regimen than his Lasix. I think he should b e on Entresto 24/26 mg b.i.d., he should be on carvedilol 3.125 b.i.d. to start off with. Continue t he Lasix. Continue aspirin. We should highly consider a heart catheterization down the road. He ma y be a candidate for a defibrillator. We will continue to follow him. DERIC/THEO Voice ID: [id number] Report ID: [id number]
--- NOTE | 2022-12-05 18:37 | P.PN ---
Date of Service: 12/05/22 Patient seen and examined. He states he feels better today. He is stable on room air. Seen by cardiology and medical management recommended. Plan: Continue Lasix. Coreg. Monitor renal function. Patient is uninsured and has difficulty affording this medications. Not sure if he can afford Entresto. We will have him on lisinopril for the meantime. Cardiology input appreciated
[2022-12-05] MEDS ORDERED: HYDROCODONE/APAP 7.5/325 MG TAB PO PRN (19:31)
[2022-12-06] MEDS ORDERED: carvediloL 3.125 MG TAB PO SCH (06:00)
[2022-12-06 06:21] VITALS: O2SAT 95
--- NOTE | 2022-12-06 08:36 | P.DS ---
Admission Date: 12/05/22 Discharge Date: 12/06/22 Disposition: ROUTINE DISCHARGE Discharge Condition: FAIR Reason for Admission: CHF Exacerbation - Problems (1) Acute on chronic systolic heart failure Status: Acute (2) Cardiomyopathy Status: Acute (3) Hypertension Status: Chronic Qualifiers: Hypertension type: primary hypertension Qualified Code(s): I10 - Essential (primary) hypertension Brief History of Present Illness: Patient is a 57 year old male with past medical history of hypertension, CAD, and systolic CHF who presented to the ED with complaints of chest pain and shortness of breath. He was diagnosed with systolic CHF about 1 month ago and was unable to follow up with cardiology or to fill his prescriptions- lasix, aspirin, atorvastatin- after discharge for financial reasons. He was noted to be tachypneic and saturating 92% on RA. Chest xray showed pulmonary congestion suggesting CHF. BNP is 3526. Trop negative. He was given 40 mg lasix in the ED and admitted for further management. Hospital Course: Patient admitted to the medical floor and treated with IV Lasix. He was seen in consultation with cardiology who recommended medical management. His shortness of breath resolved with the Lasix, blood pressure was stable. Patient became asymptomatic, currently with no complaints. He had an echocardiogram done about 1 month ago which showed EF of 25 to 30%, severe global hypokinesis, severe mitral regurgitation and severe pulmonary hypertension. Patient is uninsured, homeless and stated he has not been able to afford his medications. Lasix, Coreg and lisinopril has been prescribed and patient given a discount prescription card. Social service also saw him and assisting him with emergency Medicaid application. Vitals are stable for discharge. He is also informed to follow-up with Dr. Cartagena as outpatient. Vital Signs/Physical Exam: Temp Pulse Resp BP Pulse Ox 96.9 F 70 19 110/67 93 12/06/22 04:00 12/06/22 04:00 12/06/22 04:00 12/06/22 04:00 12/06/22 04:00 General: Alert, In no apparent distress, Oriented x3 HEENT: Mucous membr. moist/pink Neck: Supple, JVD not distended Respiratory: Clear to auscultation bilaterally, Normal air movement Cardiovascular: No edema, Regular rate/rhythm, Normal S1 S2 Gastrointestinal: Normal bowel sounds, Soft and benign, Non-distended, No tenderness Musculoskeletal: No swelling Integumentary: No rashes, No cyanosis Neurological: Normal strength at 5/5 x4 extr, Cranial nerves 3-12 intact Laboratory Data at Discharge: WBC 8.70 K/uL (4.3-10.9) 12/05/22 01:47 Hgb 13.3 g/dL (13.6-17.9) L 12/05/22 01:47 Hct 40.2 % (39.6-49.0) 12/05/22 01:47 Plt Count 161 K/uL (152-406) 12/05/22 01:47 Sodium 140 mmol/L (136-145) 12/05/22 01:47 Potassium 4.1 mmol/L (3.5-5.1) 12/05/22 01:47 BUN 22 mg/dL (7-18) H 12/05/22 01:47 Creatinine 1.36 mg/dL (0.70-1.30) H 12/05/22 01:47 Glucose 107 mg/dL (74-106) H 12/05/22 01:47 Total Bilirubin 0.9 mg/dL (0.2-1.0) 12/05/22 01:47 AST 21 U/L (15-37) 12/05/22 01:47 ALT 23 U/L (16-61) 12/05/22 01:47 Alkaline Phosphatase 134 U/L (45-117) H 12/05/22 01:47 Home Medications: Aspirin [Aspirin EC 81 MG] 81 mg PO DAILY #30 tab 12/06/22 Atorvastatin Calcium [Lipitor] 40 mg PO BEDTIME #30 tab 12/06/22 Furosemide [Lasix] 40 mg PO DAILY #30 tab 12/06/22 carvediloL [Coreg*] 3.125 mg PO BID 6AM 6PM #60 tab 12/06/22 lisinopriL [Lisinopril] 5 mg PO DAILY #30 tab 12/06/22 New Medications: Aspirin [Aspirin EC 81 MG] 81 mg PO DAILY #30 tab carvediloL [Coreg*] 3.125 mg PO BID 6AM 6PM #60 tab Furosemide [Lasix] 40 mg PO DAILY #30 tab Atorvastatin Calcium [Lipitor] 40 mg PO BEDTIME #30 tab lisinopriL [Lisinopril] 5 mg PO DAILY #30 tab Diet: AHA Activity: Ad teddy Followup: Neftaly Cartagena MD [ACTIVE - CAN ADMIT] - 1-2 Weeks Unknown,U [Primary Care Provider] - 1-2 Weeks
[2022-12-06] MEDS: ASPIRIN EC 81 MG TAB PO SCH (08:48)
[2022-12-06] MEDS: ENOXAPARIN 40 MG/0.4 ML SQ SCH (08:48)
[2022-12-06] MEDS: FUROSEMIDE 40 MG/4 ML VIAL IV SCH (08:48)
[2022-12-06 08:49] VITALS: BP 113/90
[2022-12-06] MEDS ORDERED: lisinopriL 5 MG TAB PO SCH (09:00)
[2022-12-06 09:23] VITALS: TEMP 97.6
== END 2022-12-06 10:30 | disposition home or self-care (01) ==
LOC: ER 00:09 → ERHOLD 03:25 → 4TH 07:41
PROVIDERS: ADMIT Internal Medicine; ATTEND Internal Medicine
DX: I50.23 Acute on chronic systolic (congestive) heart failure (principal); I42.9 Cardiomyopathy, unspecified; I25.10 Atherosclerotic heart disease of native coronary artery without angina pectoris; I27.20 Pulmonary hypertension, unspecified; I10 Essential (primary) hypertension; I34.0 Nonrheumatic mitral (valve) insufficiency; Z95.5 Presence of coronary angioplasty implant and graft; Z72.0 Tobacco use; Z20.822 Contact with and (suspected) exposure to COVID-19; Z59.00 Homelessness unspecified; Z91.14 Patient's other noncompliance with medication regimen
CPT/HCPCS: 0240U; 36415; 71045; 80053; 83880; 84484; 85025; 93005; 94760; 96374; 96375; 99285; G0378; J1650; J1940; J3010

== ENCOUNTER 2023-10-08 20:45 | Emergency (ER) | payer SELFPAY ==
--- OUTSIDE RECORDS SUMMARY | 2023-10-08 20:53 | XMS REPORT | Continuity of Care Document ---
:1965 Author Organization [facility] t Address [address] [place] [address] [address] [place] [address] Care Team Providers Name Role Phone FEMI DISLA Primary Care Physician Unavailable BECKI CORTÉS Attending Clinician Unavailable BECKI CORTÉS Attending Clinician Unavailable FRANK BOYER Attending Clinician Unavailable LEIGHANN MONTES Attending Clinician Unavailable DEBBI MENDOZA Attending Clinician Unavailable ANNITA GRIJALVA Attending Clinician Unavailable ANNITA GRIJALVA Attending Clinician Unavailable FEMI DISLA Attending Clinician Unavailable DILIP LOUIE Attending Clinician Unavailable Dilip Louie MD Attending Clinician Doctor Unassigned, [place] Attending Clinician Unavailable Debbi Mendoza MD Attending Clinician Margot Castillo Attending Clinician MARGOT AGRAWAL Attending Clinician Unavailable Daisha Li Attending Clinician Unavailable Femi Driver Attending Clinician Lab, Ang - Db Attending Clinician Unavailable Shari Castro RN Attending Clinician Unavailable Frank Boyer MD Attending Clinician [phone] Andrea Rucker MD Attending Clinician PIA AVENDANO Attending Clinician Unavailable NEGIN SPAIN Attending Clinician Unavailable Negin Spain MD Attending Clinician Annabelle Alba Attending Clinician Unavailable Pia Avendano MD Attending Clinician SAYRA FOX Attending Clinician Unavailable Sayra Fox DO Attending Clinician BECKI CORTÉS Admitting Clinician Unavailable NEGIN SPAIN Admitting Clinician Unavailable ANNITA GRIJALVA Admitting Clinician Unavailable DEBBI MENDOZA Admitting Clinician Unavailable FRANK BOYER Admitting Clinician Unavailable Frank Boyer MD Admitting Clinician [phone] SAYRA FOX Admitting Clinician Unavailable Payers Payer Name Policy Type Policy Number Effective Date [place] [id number] 2023 2023 C 00:00:00 00:00:00 Problems Condition Condition Condition Status Onset Resolution Last Treating Co mments Source Name Details Category Date Date Treatment Clinician Date HFrEF HFrEF Disease Active Univers (heart (heart 7-10 ity of failure failure 00:00: [place] with with 00 Medical reduced reduced Branch ejection ejection fraction) fraction) Cigarette Cigarette Disease Active Uni vers smoker smoker 6-26 ity of 00:00: 00 Medical Branch Bilateral Bilateral Disease Active Uni vers inguinal inguinal 6-15 ity of hernia hernia 00:00: without without 00 Medical obstructio obstructio Br anch n or n or gangrene, gangrene, recurrence recurrence not not specified specified Type 2 Type 2 Disease Active Univers diabetes diabetes 3-01 ity of mellitus mellitus 00:00: [place] without without 00 Medical complicati complicati Br anch on, on, without without long-term long-term current current use of use of insulin insulin Obesity Obesity Disease Active Univers (BMI (BMI 2-25 ity of 30-39.9) 30-39.9) 00:00: 00 Medical Branch Heart Heart Disease Active Univers failure failure 2-24 ity of 00:00: 00 Medical Branch CAD in CAD in Disease Active Univers [place] 1-26 ity of artery artery 00:00: 00 Medical Branch Cardiomega Cardiomega Disease Active U nivers ly ly 1-26 ity of 00:00: 00 Medical Branch CHF CHF Disease Active Univers (congestiv (congestiv 1-26 it y of e heart e heart 00:00: [place] failure) failure) 00 Medica l Branch Cholelithi Cholelithi Disease Active U nivers asis asis 12-21 ity of 00:00: [place] 00 Medical Branch Dyslipidem Dyslipidem Disease Active U nivers ia ia 12-21 ity of 00:00: [place] Medical [facility] H/O heart H/O heart Disease Active Overview: Univers artery artery 12-21 Formattin ity of stent stent 00:00: g of this 00 note Medical might be Branch different from the original. x2 right HTN HTN Disease Active Univers (hypertens (hypertens 12-21 it y of ion) ion) 00:00: 00 Medical Branch Unilateral Unilateral Disease Active Overview : Univers inguinal inguinal 12-21 Formattin ity of hernia, hernia, 00:00: g of this [place] without without 00 note Medical obstructio obstructio might be Branch n or n or different gangrene, gangrene, from the not not original. specified specified bilateral as as recurrent recurrent No known No known Disease Unive rs active active ity of problems problems [place] [facility] [place] Allergies, Adverse Reactions, Alerts Allergy Allergy Status Severity Reaction(s) Onset Inactive Treating Comm ents Source Name Type Date Date Clinician MORPHINE DRUG Active N/V Univers INGREDI 08-06 ity of 00:00: [place] 00 Medical Branch Morphine Propensi Active Nausea Univer s ty to and/or 08-06 ity of adverse Vomiting 00:00: [place] reaction 00 Medical s Branch Social History Social Habit Start Date Stop Date Quantity Comments Source History SDOH Social Unive rsity of [employer] [facility] Med ical Together Branch History SDOH Social Unive rsity of [facility] Medical Branch History SDOH Social Unive rsity of [employer] [place] [facility] Membership Branch History SDOH Social Unive rsity of [facility] Medical Meetings Branch Gender identity Universit y of [facility] Sexual orientation Univer sity of [place] [facility] History of Social 2023-07-06 2023-07-06 Univers ity of function 00:00:00 00:00:00 [facility] Branch Exposure to 2023-04-08 2023-04-18 Not sure University of SARS-CoV-2 (event) 00:00:00 12:29:00 [place] [facility] History SDOH 2023-01-23 2023-01-23 1 University o f Financial 00:00:00 00:00:00 [place] [facility] History SDOH Food 2023-01-23 2023-01-23 1 Univers ity of Worry 00:00:00 00:00:00 [place] [facility] History SDOH Food 2023-01-23 2023-01-23 2 Univers ity of Scarcity 00:00:00 00:00:00 [place] [facility] History SDOH 2023-01-23 2023-01-23 1 University o f Transport Med 00:00:00 00:00:00 [place] [facility] History SDOH 2023-01-23 2023-01-23 1 University o f Transport Non-Med 00:00:00 00:00:00 [facility] edical Branch History SDOH 2023-01-22 2023-01-22 1 University o f Alcohol Frequency 00:00:00 00:00:00 [facility] edical Branch History SDOH 2023-01-22 2023-01-22 0 University o f Alcohol Std Drinks 00:00:00 00:00:00 [place] [facility] History SDOH 2023-01-22 2023-01-22 1 University o f Alcohol Binge 00:00:00 00:00:00 [place] [facility] History SDKS Social 2023-01-22 2023-01-22 5 Unive rsity of Connections Phone 00:00:00 00:00:00 [facility] edical Branch History SDKS Social 2023-01-22 2023-01-22 7 Unive rsity of Connections Living 00:00:00 00:00:00 [place] [facility] History SDOH 2023-01-22 2023-01-22 0 University o f Physical Activity 00:00:00 00:00:00 [facility] edical DPW Branch History SDKS 2023-01-22 2023-01-22 0 University o f Physical Activity 00:00:00 00:00:00 [facility] MPS Branch Cigarettes smoked 2023-01-20 2023-01-20 Univers ity of current (pack per 00:00:00 00:00:00 [facility] day) - Reported Branch Cigarette 2023-01-20 2023-01-20 University of pack-years 00:00:00 00:00:00 [facility] Tobacco use and 2023-01-20 2023-01-20 Smokeless Universit y of exposure 00:00:00 00:00:00 tobacco non-user [facility] Alcohol intake 2023-01-20 2023-01-20 .14 /d University of 00:00:00 00:00:00 [facility] Alcohol Comment 2022-12-21 2022-12-21 Rarely Universit y of 00:00:00 00:00:00 [facility] History of tobacco 2018-09-15 Passive smoker Un iversity of use 00:00:00 [facility] Sex Ass[birth year] At [birth year] Universit y of 00:00:00 00:00:00 [facility] Smoking Status Start Date Stop Date Source Smokes tobacco daily 2023-01-20 00:00:00 [facility] Ex-smoker 2019-09-15 00:00:00 2019-09-15 [facility]00:[facility] Medications Ordered Filled Start Stop Current Ordering Indication Dosage Frequency Signature Comments Components Source Medication Medication Date Date Medication? Clinician (SIG) Name Name losartan 2022- No [id number] 25mg [employer] [facility] (COZAAR) 07-17 ity of tablet 25 14:00: 20:05 [place] mg 00 :13 [facility] losartan 2022- No [id number] 25mg [employer] ers (COZAAR) 07-17 ity of tablet 25 14:00: 20:05 [place] mg 00 :13 [facility] [place] losartan 2022- No [id number] 25mg Univ ers (COZAAR) 07-17 ity of tablet 25 14:00: 20:05 [place] mg 00 :13 [facility] losartan Yes [id number] 25mg Take 1 Univers mg tablet 8-21 tablet by ity o f 00:00: mouth in [place] 00 the Medical morning. Branch losartan 25 Yes [id number] 25mg Take 1 Univers mg tablet 8-21 tablet by ity o f 00:00: mouth in [place] 00 the Medical morning. Branch losartan Yes [id number] 25mg Take 1 Univers mg tablet 8-21 tablet by ity o f 00:00: mouth in [place] 00 the Medical morning. Branch losartan 25 0 Yes [id number] 25mg Take 1 Univers mg tablet 8-21 tablet by ity o f 00:00: mouth in [place] 00 the Medical morning. Branch FENTanyl PF 0 Yes 25ug 25 mcg, Uni vers (SUBLIMAZE 07-06 Slow IV ity of (PF)) 20:48: Push, [place] injection 25 Q5MIN PRN, Medi lis 25 mcg 4 doses, Branch Starting on Sun07/06/23 at 1548, Until Discontinu ed, Routine, Pain (scale 4-6), PACU ondansetron 0 Yes 4mg 4 mg, Slow Univers (ZOFRAN 07-06 IV Push, ity of (PF)) 20:48: PRN, 1 [place] injection 4 25 dose, Medical mg Starting Branch on Sun07/06/23 at 1548, Until Discontinu ed, Routine, Nausea and Vomiting (N/V), PACU FENTanyl PF 2022- No 25ug 25 mcg, Un [place] (SUBLIMAZE 07-06 Slow IV ity o f (PF)) 20:48: 00:49 Push, [place] injection 25 :40 Q5MIN PRN, Medi lis 25 mcg 4 doses, Branch Starting on Sun07/06/23 at 1548, Until Sun07/06/23 at 1949, Routine, Pain (scale 4-6), PACU ondansetron 2022-0 2022- No 4mg 4 mg, Slow Univers (ZOFRAN 07-06 IV Push, ity of (PF)) 20:48: 00:49 PRN, 1 [place] injection 4 25 :40 dose, Medical mg Starting Branch on Sun07/06/23 at 1548, Until Sun07/06/23 at 1949, Routine, Nausea and Vomiting (N/V), PACU bupivacaine 2022-0 2022- No PRN, Unive rs (preserv 07-06 Starting ity of free) 18:25: 21:05 on Sun [place] (SENSORCAIN 00 :18 07/06/23 at [facility]) 0.25 1325, Branch % (2.5 Intra-op mg/mL) 30 mL, BUPivacaine liposome (PF) (EXPAREL (PF)) 1.3 % (13.3 mg/mL) 266 mg sodium PRN, Univers chloride 07-06 Starting ity of 0.9 % 18:24: 21:05 on Sun [place] irrigation 00 :18 07/06/23 at Med ical solution 1324, Branch Until Sun07/06/23 at 1605, Intra-op lactated 2022- No 1000mL at 42 Unive rs ringers IV 07-06 08-11 mL/hr, ity of infusion 15:30: 15:32 1,000 mL, [place] as 1,000 mL 00 :00 IV Medical Infusion, Branch ONCE, 1 dose, On Sun07/06/23 at 1030, Routine, DSU Pre-op lactated 2022-2022- No 1000mL at 42 Unive rs ringers IV 07-0611 mL/hr, ity of infusion 15:30: 15:32 1,000 mL, [place] 1,000 mL 00 :00 IV Medical Infusion, Branch ONCE, 1 dose, On Sun07/06/23 at 1030, Routine, DSU Pre-op HYDROcodone 2022-2022- No [id number] 1{tbl} Take 1 U nivers -acetaminop -10 03-19 tablet by it y of hen ([employer]) 00:00: 04:59 [place] 10-325 mg 00 :00 every 6 Medical tablet (six) Branch hours as needed for Pain (scale 7-10) for up to 7 days. Indication s: acute pain HYDROcodone 2022-2022- No [id number] 1{tbl} Take 1 U nivers -acetaminop 8- 08-19 tablet by it y of hen ([employer]) 00:00: 04:59 [place] 10-325 mg 00 :00 every 6 Medical tablet (six) Branch hours as needed for Pain (scale 7-10) for up to 7 days. Indication s: acute pain HYDROcodone 2022-2022- No [id number] 1{tbl} Take 1 U nivers -acetaminop 8-11 08-19 tablet by it y of hen ([employer]) 00:00: 04:59 [place] 10-325 mg 00 :00 every 6 Medical tablet (six) Branch hours as needed for Pain (scale 7-10) for up to 7 days. Indication s: acute pain dapaglifloz 2023-0 Yes [id number] 10mg Take 1 Univers in 6-15 tablet by ity of () 00:00: mouth [place] 10 mg 00 the Medical tablet morning. Branch dapaglifloz 2023-0 Yes [id number] 10mg Take 1 Univers in 6-15 tablet by ity of () 00:00: mouth [place] 10 mg 00 the Medical tablet morning. Branch dapaglifloz 2023-0 Yes [id number] 10mg Take 1 Univers in 6-15 tablet by ity of () 00:00: mouth [place] 10 mg 00 the Medical tablet morning. Branch dapaglifloz 2023-0 Yes [id number] 10mg Take 1 Univers in 6-15 tablet by ity of () 00:00: mouth [place] 10 mg 00 the Medical tablet morning. Branch dapaglifloz 2023-0 Yes [id number] 10mg Take 1 Univers in 6-15 tablet by ity of () 00:00: mouth [place] 10 mg 00 the Medical tablet morning. Branch dapaglifloz 2023-0 Yes [id number] 10mg Take 1 Univers in 6-15 tablet by ity of () 00:00: mouth [place] 10 mg 00 the Medical tablet morning. Branch dapaglifloz 2023-0 Yes [id number] 10mg Take 1 Univers in 6-15 tablet by ity of () 00:00: mouth [place] 10 mg 00 the Medical tablet morning. Branch dapaglifloz 2023-0 Yes [id number] 10mg Take 1 Univers in 6-15 tablet by ity of () 00:00: mouth [place] 10 mg 00 the Medical tablet morning. Branch dapaglifloz 2023-0 Yes [id number] 10mg Take 1 Univers in 6-15 tablet by ity of () 00:00: mouth [place] 10 mg 00 the Medical tablet morning. Branch dapaglifloz 2023-0 Yes [id number] 10mg Take 1 Univers in 6-15 tablet by ity of () 00:00: mouth [place] 10 mg 00 the Medical tablet morning. Branch dapaglifloz 2023-0 Yes [id number] 10mg Take 1 Univers in 6-15 tablet by ity of () 00:00: mouth [place] 10 mg 00 the Medical tablet morning. Branch dapaglifloz 2023-0 Yes [id number] 10mg Take 1 Univers in 6-15 tablet by ity of () 00:00: mouth [place] 10 mg 00 the Medical tablet morning. Branch dapaglifloz 2023-0 Yes [id number] 10mg Take 1 Univers in 6-15 tablet by ity of () 00:00: mouth [place] 10 mg 00 the Medical tablet morning. Branch dapaglifloz 2023-0 Yes [id number] 10mg Take 1 Univers in 6-15 tablet by ity of () 00:00: mouth [place] 10 mg 00 the Medical tablet morning. Branch dapaglifloz 2023-0 Yes [id number] 10mg Take 1 Univers in 6-15 tablet by ity of () 00:00: mouth [place] 10 mg 00 the Medical tablet morning. Branch dapaglifloz 2023-0 Yes [id number] 10mg Take 1 Univers in 6-15 tablet by ity of () 00:00: mouth [place] 10 mg 00 the Medical tablet morning. Branch dapaglifloz 2023-0 Yes [id number] 10mg Take 1 Univers in 6-15 tablet by ity of () 00:00: mouth [place] 10 mg 00 the Medical tablet morning. Branch dapaglifloz 2023-0 Yes [id number] 10mg Take 1 Univers in 6-15 tablet by ity of () 00:00: mouth [place] 10 mg 00 the Medical tablet morning. Branch dapaglifloz 2023-0 Yes [id number] 10mg Take 1 Univers in 6-15 tablet by ity of () 00:00: mouth [place] 10 mg 00 the Medical tablet morning. Branch dapaglifloz 2023-0 Yes [id number] 10mg Take 1 Univers in 6-15 tablet by ity of () 00:00: mouth [place] 10 mg 00 the Medical tablet morning. Branch dapaglifloz 2023-0 Yes [id number] 10mg Take 1 Univers in 6-15 tablet by ity of () 00:00: mouth [place] 10 mg 00 the Medical tablet morning. Branch dapaglifloz 2023-0 Yes [id number] 10mg Take 1 Univers in 6-15 tablet by ity of () 00:00: mouth [place] 10 mg 00 the Medical tablet morning. Branch dapaglifloz 2023-0 Yes [id number] 10mg Take 1 Univers in 6-15 tablet by ity of () 00:00: mouth [place] 10 mg 00 the Medical tablet morning. Branch dapaglifloz 2023-0 Yes [id number] 10mg Take 1 Univers in 6-15 tablet by ity of () 00:00: mouth [place] 10 mg 00 the Medical tablet morning. Branch dapaglifloz 2023-0 Yes [id number] 10mg Take 1 Univers in 6-15 tablet by ity of () 00:00: mouth [place] 10 mg 00 the Medical tablet morning. Branch dapaglifloz 2023-0 Yes [id number] 10mg Take 1 Univers in 6-15 tablet by ity of () 00:00: mouth [place] 10 mg 00 the Medical tablet morning. Branch dapaglifloz 2023-0 Yes [id number] 10mg Take 1 Univers in 6-15 tablet by ity of () 00:00: mouth [place] 10 mg 00 the Medical tablet morning. Branch dapaglifloz 2023-0 Yes [id number] 10mg Take 1 Univers in 6-15 tablet by ity of () 00:00: mouth [place] 10 mg 00 the Medical tablet morning. Branch SITagliptin 2023-0 Yes [id number] 100mg Take 1 Univers phosphate 5-18 tablet by ity o f 100 mg 00:00: mouth in [place] tablet 00 the Medical morning. Branch SITagliptin 2023-0 2023- No [id number] 100mg Take 1 Univers phosphate 5-18 05-18 tablet by ity of 100 mg 00:00: 00:00 mouth in [place] tablet 00 :00 the Medical morning. [place] SITagliptin 2022- No [id number] 100mg Take 1 Univers phosphate 5-18 05-18 tablet by ity of 100 mg 00:00: 00:00 mouth in [place] tablet 00 :00 the Medical morning. [place] SITagliptin 2022- No [id number] 100mg Take 1 Univers phosphate 5-18 05-18 tablet by ity of 100 mg 00:00: 00:00 mouth in [place] tablet 00 :00 the Medical morning. [place] metoprolol Yes 37.5mg 37.5 mg, U nivers succinate 01-25 Oral, BID, ity of XL (TOPROL 02:00: First dose [place] XL) tablet 00 (after Medical 37.5 mg last modificati on) on Sun01/24/23 at 2000, Until Discontinu ed, Routine lisinopriL 0 Yes 2.5mg 2.5 mg, Uni vers (PRINIVIL,Z 01-24 Oral, ity of ESTRIL) 15:00: DAILY, [place] tablet 2.5 00 First dose Med ical mg (after Branch last modificati on) on Sun01/24/23 at 0900, Until Discontinu ed, Routine lisinopriL 2022- No 2.5mg 2.5 mg, Un [place] (PRINIVIL,Z 01-24 Oral, ity of ESTRIL) 15:00: 14:41 DAILY, [place] tablet 2.5 00 :15 First dose Med ical mg (after Branch last modificati on) on Sun01/24/23 at 0900, Until Discontinu ed, Routine metoprolol 2022-0 Yes 25mg 25 mg, Unive rs succinate 01-24 Oral, BID, ity of XL (TOPROL 14:00: First dose [place] XL) tablet 00 on Sun Medical 25 mg 01/24/23 at Branch 0800, Until Discontinu ed, Routine metoprolol 2022-0 2022- No 25mg 25 mg, Univ ers succinate 01-24 Oral, BID, ity of XL (TOPROL 14:00: 14:41 First dose [place] XL) tablet 00 :15 on Sun Medical 25 mg 01/24/23 at Branch 0800, Until Discontinu ed, Routine metoprolol 0 2022- No 25mg 25 mg, Univ ers tartrate 3-01-24 Oral, BID, ity of (LOPRESSOR) 02:00: 13:59 1 dose, [place] tablet 25 00 :00 First dose Medi lis mg on [facility] 01/23/23 at 1999, Routine metoprolol 2022-0 2022- No 25mg 25 mg, Univ ers tartrate -01-24 Oral, BID, ity of (LOPRESSOR) 02:00: 02:33 1 dose, [place] tablet 25 00 :00 First dose Medi lis mg on [facility] 01/23/23 at 1999, Routine furosemide 0 Yes [id number] 80mg Take 1 U nivers 80 mg 3-01 tablet by ity of tablet 00:00: mouth [place] 00 every Medical morning. Branch furosemide 2022-0 Yes [id number] 40mg Take 2 U nivers 20 mg 3-01 tablets by ity of tablet 00:00: mouth [place] 00 every Medical evening. Branch metoprolol 2022-0 Yes [id number] 37.5mg Take 1.5 Univers succinate 3-01 tablets by ity of XL 25 mg 24 00:00: mouth in [place] hr tablet 00 the Medical morning Branch and 1.5 tablets in the evening. furosemide 2022-0 Yes [id number] 80mg Take 1 U nivers 80 mg 3-01 tablet by ity of tablet 00:00: mouth [place] 00 every Medical morning. Branch furosemide 2022-0 Yes [id number] 40mg Take 2 U nivers 20 mg 3-01 tablets by ity of tablet 00:00: mouth [place] 00 every Medical evening. Branch metoprolol 2022-0 Yes [id number] 37.5mg Take 1.5 Univers succinate 3-01 tablets by ity of XL 25 mg 24 00:00: mouth in [place] hr tablet 00 the Medical morning Branch and 1.5 tablets in the evening. furosemide 2022-0 Yes [id number] 80mg Take 1 U nivers 80 mg 3-01 tablet by ity of tablet 00:00: mouth [place] 00 every Medical morning. Branch furosemide 2022-0 Yes [id number] 40mg Take 2 U nivers 20 mg 3-01 tablets by ity of tablet 00:00: mouth [place] 00 every Medical evening. Branch metoprolol 2023-0 Yes [id number] 37.5mg Take 1.5 Univers succinate 3-01 tablets by ity of XL 25 mg 24 00:00: mouth in [place] hr tablet 00 the Medical morning Branch and 1.5 tablets in the evening. furosemide 2022-0 Yes [id number] 80mg Take 1 U nivers 80 mg 3-01 tablet by ity of tablet 00:00: mouth [place] 00 every Medical morning. Branch furosemide 2022-0 Yes [id number] 40mg Take 2 U nivers 20 mg 3-01 tablets by ity of tablet 00:00: mouth [place] 00 every Medical evening. Branch metoprolol 2022-0 Yes [id number] 37.5mg Take 1.5 Univers succinate 3-01 tablets by ity of XL 25 mg 24 00:00: mouth in [place] hr tablet 00 the Medical morning Branch and 1.5 tablets in the evening. furosemide 2022-0 Yes [id number] 80mg Take 1 U nivers 80 mg 3-01 tablet by ity of tablet 00:00: mouth [place] 00 every Medical morning. Branch furosemide 2022-0 Yes [id number] 40mg Take 2 U nivers 20 mg 3-01 tablets by ity of tablet 00:00: mouth [place] 00 every Medical evening. Branch metoprolol 2022-0 Yes [id number] 37.5mg Take 1.5 Univers succinate 3-01 tablets by ity of XL 25 mg 24 00:00: mouth in [place] hr tablet 00 the Medical morning Branch and 1.5 tablets in the evening. furosemide 2022-0 Yes [id number] 80mg Take 1 U nivers 80 mg 3-01 tablet by ity of tablet 00:00: mouth [place] 00 every Medical morning. Branch furosemide 2022-0 Yes [id number] 40mg Take 2 U nivers 20 mg 3-01 tablets by ity of tablet 00:00: mouth [place] 00 every Medical evening. Branch metoprolol 3-0 Yes [id number] 37.5mg Take 1.5 Univers succinate 3-01 tablets by ity of XL 25 mg 24 00:00: mouth in [place] hr tablet 00 the Medical morning Branch and 1.5 tablets in the evening. furosemide 3-0 Yes [id number] 80mg Take 1 U nivers 80 mg 3-01 tablet by ity of tablet 00:00: mouth [place] 00 every Medical morning. Branch furosemide 3-0 Yes [id number] 40mg Take 2 U nivers 20 mg 3-01 tablets by ity of tablet 00:00: mouth [place] 00 every Medical evening. Branch metoprolol 3-0 Yes [id number] 37.5mg Take 1.5 Univers succinate 3-01 tablets by ity of XL 25 mg 24 00:00: mouth in [place] hr tablet 00 the Medical morning Branch and 1.5 tablets in the evening. furosemide 3-0 Yes [id number] 80mg Take 1 U nivers 80 mg 3-01 tablet by ity of tablet 00:00: mouth [place] 00 every Medical morning. Branch furosemide 2022-0 Yes [id number] 40mg Take 2 U nivers 20 mg 3-01 tablets by ity of tablet 00:00: mouth [place] 00 every Medical evening. Branch metoprolol 3-0 Yes [id number] 37.5mg Take 1.5 Univers succinate 3-01 tablets by ity of XL 25 mg 24 00:00: mouth in [place] hr tablet 00 the Medical morning Branch and 1.5 tablets in the evening. furosemide 3-0 Yes [id number] 80mg Take 1 U nivers 80 mg 3-01 tablet by ity of tablet 00:00: mouth [place] 00 every Medical morning. Branch furosemide 3-0 Yes [id number] 40mg Take 2 U nivers 20 mg 3-01 tablets by ity of tablet 00:00: mouth [place] 00 every Medical evening. Branch metoprolol 3-0 Yes [id number] 37.5mg Take 1.5 Univers succinate 3-01 tablets by ity of XL 25 mg 24 00:00: mouth in [place] hr tablet 00 the Medical morning Branch and 1.5 tablets in the evening. furosemide 3-0 Yes [id number] 80mg Take 1 U nivers 80 mg 3-01 tablet by ity of tablet 00:00: mouth [place] 00 every Medical morning. Branch furosemide 3-0 Yes [id number] 40mg Take 2 U nivers 20 mg 3-01 tablets by ity of tablet 00:00: mouth [place] 00 every Medical evening. Branch metoprolol 3-0 Yes [id number] 37.5mg Take 1.5 Univers succinate 3-01 tablets by ity of XL 25 mg 24 00:00: mouth in [place] hr tablet 00 the Medical morning Branch and 1.5 tablets in the evening. furosemide 3-0 Yes [id number] 80mg Take 1 U nivers 80 mg 3-01 tablet by ity of tablet 00:00: mouth [place] 00 every Medical morning. Branch furosemide 3-0 Yes [id number] 40mg Take 2 U nivers 20 mg 3-01 tablets by ity of tablet 00:00: mouth [place] 00 every Medical evening. Branch metoprolol 3-0 Yes [id number] 37.5mg Take 1.5 Univers succinate 3-01 tablets by ity of XL 25 mg 24 00:00: mouth in [place] hr tablet 00 the Medical morning Branch and 1.5 tablets in the evening. furosemide 3-0 Yes [id number] 80mg Take 1 U nivers 80 mg 3-01 tablet by ity of tablet 00:00: mouth [place] 00 every Medical morning. Branch furosemide 3-0 Yes [id number] 40mg Take 2 U nivers 20 mg 3-01 tablets by ity of tablet 00:00: mouth [place] 00 every Medical evening. Branch metoprolol 3-0 Yes [id number] 37.5mg Take 1.5 Univers succinate 3-01 tablets by ity of XL 25 mg 24 00:00: mouth in [place] hr tablet 00 the Medical morning Branch and 1.5 tablets in the evening. furosemide 3-0 Yes [id number] 80mg Take 1 U nivers 80 mg 3-01 tablet by ity of tablet 00:00: mouth [place] 00 every Medical morning. Branch furosemide 3-0 Yes [id number] 40mg Take 2 U nivers 20 mg 3-01 tablets by ity of tablet 00:00: mouth [place] 00 every Medical evening. Branch metoprolol 3-0 Yes [id number] 37.5mg Take 1.5 [facility] succinate 3-01 tablets by [facility] XL 25 mg 24 00:00: mouth in [place] hr tablet 00 the Medical morning Branch and 1.5 tablets in the evening. furosemide 2023-0 Yes [id number] 80mg Take 1 [facility] 80 mg 3-01 tablet by [facility] of tablet 00:00: mouth [place] 00 every Medical morning. Branch furosemide 3-0 Yes [id number] 40mg Take 2 [facility] 20 mg 3-01 tablets by [facility] tablet 00:00: mouth [place] 00 every Medical evening. Branch metoprolol 3-0 Yes [id number] 37.5mg Take 1.5 [facility] succinate 3-01 tablets by [facility] XL 25 mg 24 00:00: mouth in [place] hr tablet 00 the Medical morning Branch and 1.5 tablets in the evening. furosemide 3-0 Yes [id number] 80mg Take 1 [facility] 80 mg 3-01 tablet by [facility] tablet 00:00: mouth [place] 00 every Medical morning. Branch furosemide 3-0 Yes [id number] 40mg Take 2 [facility] 20 mg 3-01 tablets by [facility] tablet 00:00: mouth [place] 00 every Medical evening. Branch metoprolol 3-0 Yes [id number] 37.5mg Take 1.5 [facility] succinate 3-01 tablets by [facility] XL 25 mg 24 00:00: mouth in [place] hr tablet 00 the Medical morning Branch and 1.5 tablets in the evening. dapaglifloz 3-0 Yes [id number] 10mg Take 1 [facility] in 3-01 tablet by [facility] ([facility]) 00:00: mouth [place] 10 mg 00 the Medical tablet morning. Branch furosemide 2022-0 Yes [id number] 80mg Take 1 [facility] 80 mg 3-01 tablet by [facility] of tablet 00:00: mouth [place] 00 every Medical morning. Branch furosemide 3-0 Yes [id number] 40mg Take 2 [facility] 20 mg 3-01 tablets by [facility] of tablet 00:00: mouth [place] 00 every Medical evening. Branch metoprolol 3-0 Yes [id number] 37.5mg Take 1.5 [facility] succinate 3-01 tablets by [facility] XL 25 mg 24 00:00: mouth in [place] hr tablet 00 the Medical morning Branch and 1.5 tablets in the evening. dapaglifloz 3-0 Yes [id number] 10mg Take 1 [facility] in 3-01 tablet by [facility] ([facility]) 00:00: mouth [place] 10 mg 00 the Medical tablet morning. Branch furosemide 3-0 Yes [id number] 80mg Take 1 [facility] 80 mg 3-01 tablet by [facility] tablet 00:00: mouth [place] 00 every Medical morning. Branch furosemide 3-0 Yes [id number] 40mg Take 2 [facility] 20 mg 3-01 tablets by [facility] tablet 00:00: mouth [place] 00 every Medical evening. Branch metoprolol 3-0 Yes [id number] 37.5mg Take 1.5 [facility] succinate 3-01 tablets by [facility] XL 25 mg 24 00:00: mouth in [place] hr tablet 00 the Medical morning Branch and 1.5 tablets in the evening. dapaglifloz 3-0 Yes [id number] 10mg Take 1 [facility] in 3-01 tablet by [facility] ([facility]) 00:00: mouth [place] 10 mg 00 the Medical tablet morning. Branch furosemide 3-0 Yes [id number] 80mg Take 1 [facility] 80 mg 3-01 tablet by [facility] tablet 00:00: mouth [place] 00 every Medical morning. Branch furosemide 3-0 Yes [id number] 40mg Take 2 [facility] 20 mg 3-01 tablets by [facility] tablet 00:00: mouth [place] 00 every Medical evening. Branch metoprolol 3-0 Yes [id number] 37.5mg Take 1.5 [facility] succinate 3-01 tablets by [facility] XL 25 mg 24 00:00: mouth in [place] hr tablet 00 the Medical morning Branch and 1.5 tablets in the evening. dapaglifloz 3-0 Yes [id number] 10mg Take 1 [facility] in 3-01 tablet by [facility] ([facility]) 00:00: mouth [place] 10 mg 00 the Medical tablet morning. Branch furosemide 3-0 Yes [id number] 80mg Take 1 [facility] 80 mg 3-01 tablet by [facility] of tablet 00:00: mouth [place] 00 every Medical morning. Branch furosemide 3-0 Yes [id number] 40mg Take 2 [facility] 20 mg 3-01 tablets by [facility] of tablet 00:00: mouth [place] 00 every Medical evening. Branch metoprolol 3-0 Yes [id number] 37.5mg Take 1.5 [facility] succinate 3-01 tablets by [facility] XL 25 mg 24 00:00: mouth in [place] hr tablet 00 the Medical morning Branch and 1.5 tablets in the evening. dapaglifloz 2023-0 Yes [id number] 10mg Take 1 [facility] in 3-01 tablet by [facility] ([facility]) 00:00: mouth [place] 10 mg 00 the Medical tablet morning. Branch furosemide 3-0 Yes [id number] 80mg Take 1 [facility] 80 mg 3-01 tablet by [facility] of tablet 00:00: mouth [place] 00 every Medical morning. Branch furosemide 3-0 Yes [id number] 40mg Take 2 [facility] 20 mg 3-01 tablets by [facility] of tablet 00:00: mouth [place] 00 every Medical evening. Branch metoprolol 2023-0 Yes [id number] 37.5mg Take 1.5 [facility] succinate 3-01 tablets by [facility] XL 25 mg 24 00:00: mouth in [place] hr tablet 00 the Medical morning Branch and 1.5 tablets in the evening. dapaglifloz 2023-0 Yes [id number] 10mg Take 1 [facility] in 3-01 tablet by [facility] ([facility]) 00:00: mouth [place] 10 mg 00 the Medical tablet morning. Branch furosemide 3-0 Yes [id number] 80mg Take 1 [facility] 80 mg 3-01 tablet by [facility] of tablet 00:00: mouth [place] 00 every Medical morning. Branch furosemide 3-0 Yes [id number] 40mg Take 2 [facility] 20 mg 3-01 tablets by [facility] of tablet 00:00: mouth [place] 00 every Medical evening. Branch metoprolol 3-0 Yes [id number] 37.5mg Take 1.5 [facility] succinate 3-01 tablets by [facility] XL 25 mg 24 00:00: mouth in [place] hr tablet 00 the Medical morning Branch and 1.5 tablets in the evening. dapaglifloz 2023-0 Yes [id number] 10mg Take 1 [facility] in 3-01 tablet by [facility] ([facility]) 00:00: mouth [place] 10 mg 00 the Medical tablet morning. Branch furosemide 3-0 Yes [id number] 80mg Take 1 [facility] 80 mg 3-01 tablet by [facility] of tablet 00:00: mouth [place] 00 every Medical morning. Branch furosemide 2023-0 Yes [id number] 40mg Take 2 [facility] 20 mg 3-01 tablets by [facility] of tablet 00:00: mouth [place] 00 every Medical evening. Branch metoprolol 2023-0 Yes [id number] 37.5mg Take 1.5 [facility] succinate 3-01 tablets by [facility] XL 25 mg 24 00:00: mouth in [place] hr tablet 00 the Medical morning Branch and 1.5 tablets in the evening. dapaglifloz 2023-0 Yes [id number] 10mg Take 1 [facility] in 3-01 tablet by [facility] ([facility]) 00:00: mouth [place] 10 mg 00 the Medical tablet morning. Branch furosemide 3-0 Yes [id number] 80mg Take 1 [facility] 80 mg 3-01 tablet by [facility] of tablet 00:00: mouth [place] 00 every Medical morning. Branch furosemide 3-0 Yes [id number] 40mg Take 2 [facility] 20 mg 3-01 tablets by [facility] tablet 00:00: mouth [place] 00 every Medical evening. Branch metoprolol 3-0 Yes [id number] 37.5mg Take 1.5 [facility] succinate 3-01 tablets by [facility] XL 25 mg 24 00:00: mouth in [place] hr tablet 00 the Medical morning Branch and 1.5 tablets in the evening. dapaglifloz 3-0 Yes [id number] 10mg Take 1 [facility] in 3-01 tablet by [facility] ([facility]) 00:00: mouth [place] 10 mg 00 the Medical tablet morning. Branch furosemide 3-0 Yes [id number] 80mg Take 1 [facility] 80 mg 3-01 tablet by [facility] of tablet 00:00: mouth [place] 00 every Medical morning. Branch furosemide 3-0 Yes [id number] 40mg Take 2 [facility] 20 mg 3-01 tablets by [facility] of tablet 00:00: mouth [place] 00 every Medical evening. Branch metoprolol 3-0 Yes [id number] 37.5mg Take 1.5 [facility] succinate 3-01 tablets by [facility] XL 25 mg 24 00:00: mouth in [place] hr tablet 00 the Medical morning Branch and 1.5 tablets in the evening. dapaglifloz 3-0 Yes [id number] 10mg Take 1 [facility] in 3-01 tablet by [facility] ([facility]) 00:00: mouth [place] 10 mg 00 the Medical tablet morning. Branch furosemide 3-0 Yes [id number] 80mg Take 1 [facility] 80 mg 3-01 tablet by [facility] of tablet 00:00: mouth [place] 00 every Medical morning. Branch furosemide 3-0 Yes [id number] 40mg Take 2 [facility] 20 mg 3-01 tablets by [facility] of tablet 00:00: mouth [place] 00 every Medical evening. Branch metoprolol 3-0 Yes [id number] 37.5mg Take 1.5 [facility] succinate 3-01 tablets by [facility] XL 25 mg 24 00:00: mouth in [place] hr tablet 00 the Medical morning Branch and 1.5 tablets in the evening. dapaglifloz 3-0 Yes [id number] 10mg Take 1 [facility] in 3-01 tablet by [facility] ([facility]) 00:00: mouth [place] 10 mg 00 the Medical tablet morning. Branch furosemide 3-0 Yes [id number] 80mg Take 1 [facility] 80 mg 3-01 tablet by [facility] of tablet 00:00: mouth [place] 00 every Medical morning. Branch furosemide 3-0 Yes [id number] 40mg Take 2 [facility] 20 mg 3-01 tablets by [facility] of tablet 00:00: mouth [place] 00 every Medical evening. Branch metoprolol 3-0 Yes [id number] 37.5mg Take 1.5 [facility] succinate 3-01 tablets by [facility] XL 25 mg 24 00:00: mouth in [place] hr tablet 00 the Medical morning Branch and 1.5 tablets in the evening. dapaglifloz 3-0 Yes [id number] 10mg Take 1 [facility] in 3-01 tablet by [facility] ([facility]) 00:00: mouth [place] 10 mg 00 the Medical tablet morning. Branch furosemide 2022-0 Yes [id number] 80mg Take 1 [facility] 80 mg 3-01 tablet by [facility] of tablet 00:00: mouth [place] 00 every Medical morning. Branch furosemide 3-0 Yes [id number] 40mg Take 2 [facility] 20 mg 3-01 tablets by [facility] of tablet 00:00: mouth [place] 00 every Medical evening. Branch metoprolol 3-0 Yes [id number] 37.5mg Take 1.5 [facility] succinate 3-01 tablets by [facility] of XL 25 mg 24 00:00: mouth in [place] hr tablet 00 the Medical morning Branch and 1.5 tablets in the evening. dapaglifloz 2023-0 Yes [id number] 10mg Take 1 [facility] in 3-01 tablet by [facility] of ([facility]) 00:00: mouth [place] 10 mg 00 the Medical tablet morning. Branch furosemide 3-0 Yes [id number] 80mg Take 1 [facility] 80 mg 3-01 tablet by [facility] of tablet 00:00: mouth [place] 00 every Medical morning. Branch furosemide 3-0 Yes [id number] 40mg Take 2 [facility] 20 mg 3-01 tablets by [facility] of tablet 00:00: mouth [place] 00 every Medical evening. Branch metoprolol 3-0 Yes [id number] 37.5mg Take 1.5 [facility] succinate 3-01 tablets by [facility] of XL 25 mg 24 00:00: mouth in [place] hr tablet 00 the Medical morning Branch and 1.5 tablets in the evening. dapaglifloz 2023-0 Yes [id number] 10mg Take 1 [facility] in 3-01 tablet by [facility] of ([facility]) 00:00: mouth [place] 10 mg 00 the Medical tablet morning. Branch furosemide 3-0 Yes [id number] 80mg Take 1 [facility] 80 mg 3-01 tablet by [facility] of tablet 00:00: mouth [place] 00 every Medical morning. Branch furosemide 3-0 Yes [id number] 40mg Take 2 [facility] 20 mg 3-01 tablets by [facility] of tablet 00:00: mouth [place] 00 every Medical evening. Branch metoprolol 3-0 Yes [id number] 37.5mg Take 1.5 [facility] succinate 3-01 tablets by [facility] of XL 25 mg 24 00:00: mouth in [place] hr tablet 00 the Medical morning Branch and 1.5 tablets in the evening. dapaglifloz 3-0 Yes [id number] 10mg Take 1 [facility] in 3-01 tablet by [facility] ([facility]) 00:00: mouth in [place] 10 mg 00 the Medical tablet morning. Branch furosemide 3-0 Yes [id number] 80mg Take 1 [facility] 80 mg 3-01 tablet by [facility] of tablet 00:00: mouth [place] 00 every Medical morning. Branch furosemide 3-0 Yes [id number] 40mg Take 2 [facility] 20 mg 3-01 tablets by [facility] of tablet 00:00: mouth [place] 00 every Medical evening. Branch metoprolol 2023-0 Yes [id number] 37.5mg Take 1.5 [facility] succinate 3-01 tablets by [facility] XL 25 mg 24 00:00: mouth in [place] hr tablet 00 the Medical morning Branch and 1.5 tablets in the evening. dapaglifloz 2023-0 Yes [id number] 10mg Take 1 [facility] in 3-01 tablet by [facility] of ([facility]) 00:00: mouth [place] 10 mg 00 the Medical tablet morning. Branch furosemide 3-0 Yes [id number] 80mg Take 1 [facility] 80 mg 3-01 tablet by [facility] of tablet 00:00: mouth [place] 00 every Medical morning. Branch furosemide 3-0 Yes [id number] 40mg Take 2 [facility] 20 mg 3-01 tablets by [facility] of tablet 00:00: mouth [place] 00 every Medical evening. Branch metoprolol 3-0 Yes [id number] 37.5mg Take 1.5 [facility] succinate 3-01 tablets by [facility] of XL 25 mg 24 00:00: mouth in [place] hr tablet 00 the Medical morning Branch and 1.5 tablets in the evening. dapaglifloz 3-0 Yes [id number] 10mg Take 1 [facility] in 3-01 tablet by [facility] of ([facility]) 00:00: mouth [place] 10 mg 00 the Medical tablet morning. Branch furosemide 3-0 Yes [id number] 80mg Take 1 [facility] 80 mg 3-01 tablet by [facility] of tablet 00:00: mouth [place] 00 every Medical morning. Branch furosemide 3-0 Yes [id number] 40mg Take 2 [facility] 20 mg 3-01 tablets by [facility] of tablet 00:00: mouth [place] 00 every Medical evening. Branch metoprolol 3-0 Yes [id number] 37.5mg Take 1.5 [facility] succinate 3-01 tablets by [facility] of XL 25 mg 24 00:00: mouth in [place] hr tablet 00 the Medical morning Branch and 1.5 tablets in the evening. furosemide 3-0 Yes [id number] 80mg Take 1 [facility] 80 mg 3-01 tablet by [facility] of tablet 00:00: mouth [place] 00 every Medical morning. Branch furosemide 3-0 Yes [id number] 40mg Take 2 [facility] 20 mg 3-01 tablets by [facility] of tablet 00:00: mouth [place] 00 every Medical evening. Branch metoprolol 3-0 Yes [id number] 37.5mg Take 1.5 [facility] succinate 3-01 tablets by [facility] of XL 25 mg 24 00:00: mouth in [place] hr tablet 00 the Medical morning Branch and 1.5 tablets in the evening. furosemide 3-0 Yes [id number] 80mg Take 1 [facility] 80 mg 3-01 tablet by [facility] of tablet 00:00: mouth [place] 00 every Medical morning. Branch furosemide 3-0 Yes [id number] 40mg Take 2 [facility] 20 mg 3-01 tablets by [facility] of tablet 00:00: mouth [place] 00 every Medical evening. Branch metoprolol 3-0 Yes [id number] 37.5mg Take 1.5 [facility] succinate 3-01 tablets by [facility] of XL 25 mg 24 00:00: mouth in [place] hr tablet 00 the Medical morning Branch and 1.5 tablets in the evening. furosemide 3-0 Yes [id number] 80mg Take 1 [facility] 80 mg 3-01 tablet by [facility] of tablet 00:00: mouth [place] 00 every Medical morning. Branch furosemide 3-0 Yes [id number] 40mg Take 2 [facility] 20 mg 3-01 tablets by [facility] of tablet 00:00: mouth [place] 00 every Medical evening. Branch metoprolol 3-0 Yes [id number] 37.5mg Take 1.5 [facility] succinate 3-01 tablets by [facility] XL 25 mg 24 00:00: mouth in [place] hr tablet 00 the Medical morning Branch and 1.5 tablets in the evening. furosemide 3-0 Yes [id number] 80mg Take 1 [facility] 80 mg 3-01 tablet by [facility] of tablet 00:00: mouth [place] 00 every Medical morning. Branch furosemide 3-0 Yes [id number] 40mg Take 2 [facility] 20 mg 3-01 tablets by [facility] of tablet 00:00: mouth [place] 00 every Medical evening. Branch metoprolol 3-0 Yes [id number] 37.5mg Take 1.5 [facility] succinate 3-01 tablets by [facility] XL 25 mg 24 00:00: mouth in [place] hr tablet 00 the Medical morning Branch and 1.5 tablets in the evening. furosemide 3-0 Yes [id number] 80mg Take 1 [facility] 80 mg 3-01 tablet by [facility] of tablet 00:00: mouth [place] 00 every Medical morning. Branch furosemide 3-0 Yes [id number] 40mg Take 2 [facility] 20 mg 3-01 tablets by [facility] of tablet 00:00: mouth [place] 00 every Medical evening. Branch metoprolol 2023-0 Yes [id number] 37.5mg Take 1.5 [facility] succinate 3-01 tablets by [facility] of XL 25 mg 24 00:00: mouth in [place] hr tablet 00 the Medical morning Branch and 1.5 tablets in the evening. furosemide 2023-0 Yes [id number] 80mg Take 1 [facility] 80 mg 3-01 tablet by [facility] of tablet 00:00: mouth [place] 00 every Medical morning. Branch furosemide 3-0 Yes [id number] 40mg Take 2 [facility] 20 mg 3-01 tablets by [facility] of tablet 00:00: mouth [place] 00 every Medical evening. Branch metoprolol 3-0 Yes [id number] 37.5mg Take 1.5 [facility] succinate 3-01 tablets by [facility] of XL 25 mg 24 00:00: mouth in [place] hr tablet 00 the Medical morning Branch and 1.5 tablets in the evening. furosemide 3-0 Yes [id number] 80mg Take 1 [facility] 80 mg 3-01 tablet by [facility] of tablet 00:00: mouth [place] 00 every Medical morning. Branch furosemide 3-0 Yes [id number] 40mg Take 2 [facility] 20 mg 3-01 tablets by [facility] of tablet 00:00: mouth [place] 00 every Medical evening. Branch metoprolol 3-0 Yes [id number] 37.5mg Take 1.5 [facility] succinate 3-01 tablets by [facility] of XL 25 mg 24 00:00: mouth in [place] hr tablet 00 the Medical morning Branch and 1.5 tablets in the evening. furosemide 3-0 Yes [id number] 80mg Take 1 [facility] 80 mg 3-01 tablet by [facility] of tablet 00:00: mouth [place] 00 every Medical morning. Branch furosemide 3-0 Yes [id number] 40mg Take 2 [facility] 20 mg 3-01 tablets by [facility] of tablet 00:00: mouth [place] 00 every Medical evening. Branch metoprolol 2023-0 Yes [id number] 37.5mg Take 1.5 [facility] succinate 3-01 tablets by [facility] of XL 25 mg 24 00:00: mouth in [place] hr tablet 00 the Medical morning Branch and 1.5 tablets in the evening. furosemide 2023-0 Yes [id number] 80mg Take 1 [facility] 80 mg 3-01 tablet by [facility] of tablet 00:00: mouth [place] 00 every Medical morning. Branch furosemide 2023-0 Yes [id number] 40mg Take 2 [facility] 20 mg 3-01 tablets by [facility] of tablet 00:00: mouth [place] 00 every Medical evening. Branch metoprolol 2023-0 Yes [id number] 37.5mg Take 1.5 [facility] succinate 3-01 tablets by [facility] of XL 25 mg 24 00:00: mouth in [place] hr tablet 00 the Medical morning Branch and 1.5 tablets in the evening. furosemide 3-0 Yes [id number] 80mg Take 1 [facility] 80 mg 3-01 tablet by [facility] of tablet 00:00: mouth [place] 00 every Medical morning. Branch furosemide 3-0 Yes [id number] 40mg Take 2 [facility] 20 mg 3-01 tablets by [facility] of tablet 00:00: mouth [place] 00 every Medical evening. Branch metoprolol 3-0 Yes [id number] 37.5mg Take 1.5 [facility] succinate 3-01 tablets by [facility] of XL 25 mg 24 00:00: mouth in [place] hr tablet 00 the Medical morning Branch and 1.5 tablets in the evening. furosemide 2022-0 Yes [id number] 80mg Take 1 [facility] 80 mg 3-01 tablet by [facility] of tablet 00:00: mouth [place] 00 every Medical morning. Branch furosemide 2022-0 Yes [id number] 40mg Take 2 [facility] 20 mg 3-01 tablets by [facility] of tablet 00:00: mouth [place] 00 every Medical evening. Branch metoprolol 2022-0 Yes [id number] 37.5mg Take 1.5 [facility] succinate 3-01 tablets by [facility] of XL 25 mg 24 00:00: mouth in [place] hr tablet 00 the Medical morning Branch and 1.5 tablets in the evening. furosemide 3-0 Yes [id number] 80mg Take 1 [facility] 80 mg 3-01 tablet by [facility] of tablet 00:00: mouth [place] 00 every Medical morning. Branch furosemide 3-0 Yes [id number] 40mg Take 2 [facility] 20 mg 3-01 tablets by [facility] of tablet 00:00: mouth [place] 00 every Medical evening. Branch metoprolol 3-0 Yes [id number] 37.5mg Take 1.5 [facility] succinate 3-01 tablets by [facility] of XL 25 mg 24 00:00: mouth in [place] hr tablet 00 the Medical morning Branch and 1.5 tablets in the evening. furosemide 3-0 Yes [id number] 80mg Take 1 [facility] 80 mg 3-01 tablet by [facility] of tablet 00:00: mouth [place] 00 every Medical morning. Branch furosemide 3-0 Yes [id number] 40mg Take 2 [facility] 20 mg 3-01 tablets by [facility] of tablet 00:00: mouth [place] 00 every Medical evening. Branch metoprolol 3-0 Yes [id number] 37.5mg Take 1.5 [facility] succinate 3-01 tablets by [facility] of XL 25 mg 24 00:00: mouth in [place] hr tablet 00 the Medical morning Branch and 1.5 tablets in the evening. furosemide 3-0 Yes [id number] 80mg Take 1 [facility] 80 mg 3-01 tablet by [facility] of tablet 00:00: mouth [place] 00 every Medical morning. Branch furosemide 3-0 Yes [id number] 40mg Take 2 [facility] 20 mg 3-01 tablets by [facility] of tablet 00:00: mouth [place] 00 every Medical evening. Branch metoprolol 3-0 Yes [id number] 37.5mg Take 1.5 [facility] succinate 3-01 tablets by [facility] of XL 25 mg 24 00:00: mouth in [place] hr tablet 00 the Medical morning Branch and 1.5 tablets in the evening. furosemide 3-0 Yes [id number] 80mg Take 1 [facility] 80 mg 3-01 tablet by [facility] of tablet 00:00: mouth [place] 00 every Medical morning. Branch furosemide 3-0 Yes [id number] 40mg Take 2 [facility] 20 mg 3-01 tablets by [facility] of tablet 00:00: mouth [place] 00 every Medical evening. Branch metoprolol 3-0 Yes [id number] 37.5mg Take 1.5 [facility] succinate 3-01 tablets by [facility] of XL 25 mg 24 00:00: mouth in [place] hr tablet 00 the Medical morning Branch and 1.5 tablets in the evening. furosemide 3-0 Yes [id number] 80mg Take 1 [facility] 80 mg 3-01 tablet by [facility] of tablet 00:00: mouth [place] 00 every Medical morning. Branch furosemide 3-0 Yes [id number] 40mg Take 2 [facility] 20 mg 3-01 tablets by [facility] of tablet 00:00: mouth [place] 00 every Medical evening. Branch metoprolol 3-0 Yes [id number] 37.5mg Take 1.5 [facility] succinate 3-01 tablets by [facility] of XL 25 mg 24 00:00: mouth in [place] hr tablet 00 the Medical morning Branch and 1.5 tablets in the evening. dapaglifloz 3-0 2022- No [id number] 10mg Take 1 [facility] in 01-2415 tablet by [facility] of ([facility]) 00:00: 00:00 mouth in [place] 10 mg 00 :00 the Medical tablet morning. Branch dapaglifloz 2022-0 2022- No [id number] 10mg Take 1 [facility] in 01-2415 tablet by [facility] of ([facility]) 00:00: 00:00 mouth in [place] 10 mg 00 :00 the Medical tablet morning. Branch dapaglifloz 2022-0 2022- No [id number] 10mg Take 1 [facility] in 01-24 tablet by [facility] of ([facility]) 00:00: 00:00 mouth in [place] 10 mg 00 :00 the Medical tablet morning. Branch dapaglifloz 2022-0 2022- No [id number] 10mg Take 1 [facility] in 01-24 tablet by [facility] of ([facility]) 00:00: 00:00 mouth in [place] 10 mg 00 :00 the Medical tablet morning. Branch dapaglifloz 2022-0 2022- No [id number] 10mg Take 1 [facility] in 01-24 tablet by [facility] of ([facility]) 00:00: 00:00 mouth in [place] 10 mg 00 :00 the Medical tablet morning. Branch metoprolol 2022-0 2022- No [id number] 37.5mg Take 1.5 [facility] succinate 01-24 tablets by [facility] of XL 25 mg 24 00:00: 00:00 mouth in [place] hr tablet 00 :00 the Medical morning Branch and 1.5 tablets in the evening. spironolact 2022-0 2022- No [id number] 12.5mg Take 0.5 [facility] one 25 mg 01-24 tablets by [facility] of tablet 00:00: 00:00 mouth in [place] 00 :00 the Medical morning. Branch metFORMIN 2022-0 3- No [id number] Take 1 [facility] 500 mg 01-24 tablet by [facility] of tablet 00:00: 00:00 mouth [place] 00 :00 daily for Medical 7 days, Branch THEN 1 tablet 2 (two) times daily with meals for 7 days, THEN 2 tablets 2 (two) times daily with meals for 30 days. metoprolol 2022-0 2022- No [id number] 37.5mg Take 1.5 [facility] succinate 01-24 tablets by ity of XL 25 mg 24 00:00: 00:00 mouth in [place] hr tablet 00 :00 the Medical morning Branch and 1.5 tablets in the evening. aspirin 81 2022-0 Yes [id number] 81mg Take 1 [facility] nivers mg EC 2-28 tablet by [facility]y of tablet 00:00: mouth in [place] 00 the Medical morning. Branch aspirin 81 2022-0 Yes [id number] 81mg Take 1 [facility]ivers mg EC 2-28 tablet by [facility] of tablet 00:00: mouth in [place] 00 the Medical morning. Branch aspirin 81 2022-0 Yes [id number] 81mg Take 1 [facility] mg EC 2-28 tablet by [facility]y of tablet 00:00: mouth in [place] 00 the Medical morning. Branch aspirin 81 2022-0 Yes [id number] 81mg Take 1 [facility] mg EC 2-28 tablet by [facility] of tablet 00:00: mouth in [place] 00 the Medical morning. Branch aspirin 81 2022-0 Yes [id number] 81mg Take 1 [facility] mg EC 2-28 tablet by [facility]y of tablet 00:00: mouth in [place] 00 the Medical morning. Branch aspirin 81 2022-0 Yes [id number] 81mg Take 1 [facility] mg EC 2-28 tablet by [facility] of tablet 00:00: mouth in [place] 00 the Medical morning. Branch aspirin 81 2022-0 Yes [id number] 81mg Take 1 [facility] mg EC 2-28 tablet by [facility]y of tablet 00:00: mouth in [place] 00 the Medical morning. Branch aspirin 81 2022-0 Yes [id number] 81mg Take 1 [facility] mg EC 2-28 tablet by [facility]y of tablet 00:00: mouth in [place] 00 the Medical morning. Branch aspirin 81 2022-0 Yes [id number] 81mg Take 1 [facility] mg EC 2-28 tablet by [facility]y of tablet 00:00: mouth in [place] 00 the Medical morning. Branch aspirin 81 2022-0 Yes [id number] 81mg Take 1 [facility] mg EC 2-28 tablet by [facility]y of tablet 00:00: mouth in [place] 00 the Medical morning. Branch aspirin 81 2022-0 Yes [id number] 81mg Take 1 [facility] mg EC 2-28 tablet by [facility]y of tablet 00:00: mouth in [place] 00 the Medical morning. Branch aspirin 81 3-0 Yes [id number] 81mg Take 1 [facility] mg EC 2-28 tablet by [facility]y of tablet 00:00: mouth in [place] 00 the Medical morning. Branch aspirin 81 3-0 Yes [id number] 81mg Take 1 [facility] mg EC 2-28 tablet by [facility]y of tablet 00:00: mouth in [place] 00 the Medical morning. Branch aspirin 81 2022-0 Yes [id number] 81mg Take 1 [facility] n[facility] mg EC 2-28 tablet by [facility]y of tablet 00:00: mouth in [place] 00 the Medical morning. Branch aspirin 81 3-0 Yes [id number] 81mg Take 1 [facility] mg EC 2-28 tablet by [facility]y of tablet 00:00: mouth in [place] the Medical morning. Branch aspirin 81 3-0 Yes [id number] 81mg Take 1 [facility] nivers mg EC 2-28 tablet by [facility]y of tablet 00:00: mouth in [place] the Medical morning. Branch aspirin 81 2022-0 Yes [id number] 81mg Take 1 [facility] mg EC 2-28 tablet by [facility]y of tablet 00:00: mouth in [place] the Medical morning. Branch aspirin 81 2022-0 Yes [id number] 81mg Take 1 [facility] mg EC 2-28 tablet by [facility]y of tablet 00:00: mouth in [place] the Medical morning. Branch aspirin 81 3-0 Yes [id number] 81mg Take 1 [facility] mg EC 2-28 tablet by [facility]y of tablet 00:00: mouth in [place] 00 the Medical morning. Branch aspirin 81 3-0 Yes [id number] 81mg Take 1 [facility] mg EC 2-28 tablet by [facility]y of tablet 00:00: mouth in [place] 00 the Medical morning. Branch aspirin 81 3-0 Yes [id number] 81mg Take 1 [facility] mg EC 2-28 tablet by [facility]y of tablet 00:00: mouth in [place] 00 the Medical morning. Branch aspirin 81 3-0 Yes [id number] 81mg Take 1 U nivers mg EC 2-28 tablet by ity of tablet 00:00: mouth in [place] 00 the Medical morning. Branch aspirin 81 3-0 Yes [id number] 81mg Take 1 U nivers mg EC 2-28 tablet by ity of tablet 00:00: mouth in [place] 00 the Medical morning. Branch aspirin 81 2023-0 Yes [id number] 81mg Take 1 U nivers mg EC 2-28 tablet by ity of tablet 00:00: mouth in [place] 00 the Medical morning. Branch aspirin 81 2023-0 Yes [id number] 81mg Take 1 U nivers mg EC 2-28 tablet by ity of tablet 00:00: mouth in [place] 00 the Medical morning. Branch aspirin 81 2023-0 Yes [id number] 81mg Take 1 U nivers mg EC 2-28 tablet by ity of tablet 00:00: mouth in [place] 00 the Medical morning. Branch aspirin 81 2023-0 Yes [id number] 81mg Take 1 U nivers mg EC 2-28 tablet by ity of tablet 00:00: mouth in [place] the Medical morning. Branch aspirin 81 2023-0 Yes [id number] 81mg Take 1 U nivers mg EC 2-28 tablet by ity of tablet 00:00: mouth in [place] the Medical morning. Branch aspirin 81 3-0 Yes [id number] 81mg Take 1 U nivers mg EC 2-28 tablet by ity of tablet 00:00: mouth in [place] the Medical morning. Branch aspirin 81 3-0 Yes [id number] 81mg Take 1 U nivers mg EC 2-28 tablet by ity of tablet 00:00: mouth in [place] the Medical morning. Branch aspirin 81 3-0 Yes [id number] 81mg Take 1 U nivers mg EC 2-28 tablet by ity of tablet 00:00: mouth in [place] the Medical morning. Branch aspirin 81 3-0 Yes [id number] 81mg Take 1 U nivers mg EC 2-28 tablet by ity of tablet 00:00: mouth in [place] 00 the Medical morning. Branch aspirin 81 2023-0 Yes [id number] 81mg Take 1 U nivers mg EC 2-28 tablet by ity of tablet 00:00: mouth in [place] 00 the Medical morning. Branch aspirin 81 2023-0 Yes [id number] 81mg Take 1 U nivers mg EC 2-28 tablet by ity of tablet 00:00: mouth in [place] 00 the Medical morning. Branch aspirin 81 2023-0 Yes [id number] 81mg Take 1 U nivers mg EC 2-28 tablet by ity of tablet 00:00: mouth in [place] 00 the Medical morning. Branch aspirin 81 2023-0 Yes [id number] 81mg Take 1 U nivers mg EC 2-28 tablet by ity of tablet 00:00: mouth in [place] 00 the Medical morning. Branch aspirin 81 2023-0 Yes [id number] 81mg Take 1 U nivers mg EC 2-28 tablet by ity of tablet 00:00: mouth in [place] 00 the Medical morning. Branch aspirin 81 2023-0 Yes [id number] 81mg Take 1 U nivers mg EC 2-28 tablet by ity of tablet 00:00: mouth in [place] 00 the Medical morning. Branch aspirin 81 2023-0 Yes [id number] 81mg Take 1 U nivers mg EC 2-28 tablet by ity of tablet 00:00: mouth in [place] 00 the Medical morning. Branch aspirin 81 2023-0 Yes [id number] 81mg Take 1 U nivers mg EC 2-28 tablet by ity of tablet 00:00: mouth in [place] 00 the Medical morning. Branch aspirin 81 2023-0 Yes [id number] 81mg Take 1 U nivers mg EC 2-28 tablet by ity of tablet 00:00: mouth in [place] 00 the Medical morning. Branch aspirin 81 2023-0 Yes [id number] 81mg Take 1 U nivers mg EC 2-28 tablet by ity of tablet 00:00: mouth in [place] 00 the Medical morning. Branch aspirin 81 2023-0 Yes [id number] 81mg Take 1 U nivers mg EC 2-28 tablet by ity of tablet 00:00: mouth in [place] 00 the Medical morning. Branch aspirin 81 2023-0 Yes [id number] 81mg Take 1 U nivers mg EC 2-28 tablet by ity of tablet 00:00: mouth in [place] 00 the Medical morning. Branch aspirin 81 2023-0 Yes [id number] 81mg Take 1 U nivers mg EC 2-28 tablet by ity of tablet 00:00: mouth in [place] 00 the Medical morning. Branch aspirin 81 2023-0 Yes [id number] 81mg Take 1 U nivers mg EC 2-28 tablet by ity of tablet 00:00: mouth in [place] 00 the Medical morning. Branch aspirin 81 2023-0 Yes [id number] 81mg Take 1 U nivers mg EC 2-28 tablet by ity of tablet 00:00: mouth in [place] 00 the Medical morning. Branch aspirin 81 2022-0 Yes [id number] 81mg Take 1 U nivers mg EC 2-28 tablet by ity of tablet 00:00: mouth in [place] 00 the Medical morning. Branch aspirin 81 2022-0 Yes [id number] 81mg Take 1 U nivers mg EC 2-28 tablet by ity of tablet 00:00: mouth in [place] 00 the Medical morning. Branch furosemide 2022-0 Yes 80mg 80 mg, Unive rs (LASIX) 2-27 Oral, ity of tablet 80 23:00: QAM+PM, [place] mg 00 First dose Medical on [place] 01/22/23 at 1700, Until Discontinu ed, Routine furosemide 2022-0 Yes 80mg 80 mg, Unive rs (LASIX) 2-27 Oral, ity of tablet 80 23:00: QAM+PM, [place] mg 00 First dose Medical on [place] 01/22/23 at 1700, Until Discontinu ed, Routine metoprolol 2022-2022- No 25mg Take 25 mg Univers tartrate 25 2-22 01- by mouth ity of mg tablet 15:15: 00:00 in the [place] 37 :00 morning Medical and 25 mg Branch in the evening. metoprolol 2022-0 2022- No 25mg Take 25 mg Univers tartrate 25 2-22 01-27 by mouth ity of mg tablet 15:15: 00:00 in the [place] 37 :00 morning Medical and 25 mg Branch in the evening. metoprolol 2022-0 2022- No 25mg Take 25 mg Univers tartrate 25 2-22 01-27 by mouth ity of mg tablet 15:15: 00:00 in the [place] 37 :00 morning Medical and 25 mg Branch in the evening. metoprolol 2022-0 2022- No 25mg Take 25 mg Univers tartrate 25 2-27 02-27 by mouth ity of mg tablet 15:15: 00:00 in the [place] 37 :00 morning Medical and 25 mg Branch in the evening. metoprolol 2022-0 2022- No 25mg Take 25 mg Univers tartrate 25 2-22 01-27 by mouth ity of mg tablet 15:15: 00:00 in the [place] 37 :00 morning Medical and 25 mg Branch in the evening. iopamidol 2022-0 2022- No ONCE INTRA U nivers (ISOVUE 01-22 PROCEDURE, ity o f 370-500 mL) 14:51: 15:05 Starting [place] injection 43 :08 on [facility] 01/22/23 at Branch 0851, Until 01/22/23 at 0905, Routine, CV Intraproce dure NaCl 0.9% 2022- No CONTINUOUS U nivers (NS) bolus 01-22 PRN, ity of infusion 14:44: 14:44 [place] 02 :02 on [facility] 01/22/23 at Branch 0844, Until Discontinu ed, STAT, CV Intraproce dure PHENYLephri 2022- No ONCE INTRA Univers ne 1000 01-22 PROCEDURE, ity o f mcg/10 mL 14:43: 15:05 Starting [place] in 0.9% 22 :08 on [facility] NaCl 01/22/23 at Branch syringe 0843, Until Sun01/22/23 at 0905, Routine, CV Intraproce dure nitroglycer 2022- No ONCE INTRA Univers in (TRIDIL) 01-22 PROCEDURE, i ty of 2 mg in 10 14:12: 15:05 Starting [place] mL D5W for 33 :08 on [facility] Cardiac 01/22/23 at Branch Cath 0812, Until Sun01/22/23 at 0905, Routine, CV Intraproce dure heparin 2022- No ONCE INTRA Uni vers 1,000 01-22 PROCEDURE, ity of unit/mL 14:12: 15:05 Starting [place] injection 19 :08 on [facility] 01/22/23 at Branch 0812, Until Sun01/22/23 at 0905, Routine, CV Intraproce dure midazolam 2022-0 2022- No ONCE INTRA U nivers (VERSED) 01-22 PROCEDURE, ity of injection 13:54: 15:05 Starting [place] 00 :08 on [facility] 01/22/23 at Branch 0754, Until Sun01/22/23 at 0905, Routine, CV Intraproce dure FENTanyl PF 2022-2022- No ONCE INTRA Univers (SUBLIMAZE 01-22 PROCEDURE, it y of (PF)) 13:54: 15:05 Starting [place] injection 00 :08 on [facility] 01/22/23 at Branch 0754, Until Sun01/22/23 at 09, Routine, CV Intraproce dure lidocaine 2022- No ONCE INTRA U nivers 1% (PF) 01-22 PROCEDURE, ity o f (XYLOCAINE) 13:53: 15:05 Starting [place] injection 00 :08 on [facility] 01/22/23 at Branch 0753, Until Sun01/22/23 at 09, Routine, CV Intraproce dure atorvastati 0 Yes [id number] 80mg Take 1 Univers n 80 mg 2-27 tablet by ity of tablet 00:00: mouth at [place] [address] bedtime. Medical Branch atorvastati Yes [id number] 80mg Take 1 Univers n 80 mg 2-27 tablet by ity of tablet 00:00: mouth at [place] [address] bedtime. Medical Branch atorvastati Yes [id number] 80mg Take 1 Univers n 80 mg 2-27 tablet by ity of tablet 00:00: mouth at [place] [address] bedtime. Medical Branch atorvastati Yes [id number] 80mg Take 1 Univers n 80 mg 2-27 tablet by ity of tablet 00:00: mouth at [place] [address] bedtime. Medical Branch atorvastati Yes [id number] 80mg Take 1 Univers n 80 mg 2-27 tablet by ity of tablet 00:00: mouth at [place] [address] bedtime. Medical Branch atorvastati 0 Yes [id number] 80mg Take 1 Univers n 80 mg 2-27 tablet by ity of tablet 00:00: mouth at [place] [address] bedtime. Medical Branch atorvastati Yes [id number] 80mg Take 1 Univers n 80 mg 2-27 tablet by ity of tablet 00:00: mouth at [place] [address] bedtime. Medical Branch atorvastati Yes [id number] 80mg Take 1 Univers n 80 mg 2-27 tablet by ity of tablet 00:00: mouth at [place] [address] bedtime. Medical Branch atorvastati Yes [id number] 80mg Take 1 Univers n 80 mg 2-27 tablet by ity of tablet 00:00: mouth at [place] [address] bedtime. Medical Branch atorvastati 2022-0 Yes [id number] 80mg Take 1 Univers n 80 mg 2-27 tablet by ity of tablet 00:00: mouth at [place] [address] bedtime. Medical Branch atorvastati 2022-0 Yes [id number] 80mg Take 1 Univers n 80 mg 2-27 tablet by ity of tablet 00:00: mouth at [place] [address] bedtime. Medical Branch atorvastati 2022-0 Yes [id number] 80mg Take 1 Univers n 80 mg 2-27 tablet by ity of tablet 00:00: mouth at [place] [address] bedtime. Medical Branch atorvastati 2022-0 Yes [id number] 80mg Take 1 Univers n 80 mg 2-27 tablet by ity of tablet 00:00: mouth at [place] [address] bedtime. Medical Branch atorvastati 2022-0 Yes [id number] 80mg Take 1 Univers n 80 mg 2-27 tablet by ity of tablet 00:00: mouth at [place] [address] bedtime. Medical Branch atorvastati 2022-0 Yes [id number] 80mg Take 1 Univers n 80 mg 2-27 tablet by ity of tablet 00:00: mouth at [place] [address] bedtime. Medical Branch carvediloL 2022-0 Yes [id number] 3.125mg Take 1 Univers 3.125 mg 2-27 tablet by ity of tablet 00:00: mouth in [place] 00 the Medical morning Branch and 1 tablet in the evening. Take with meals. clopidogreL 2022-0 Yes [id number] 75mg Take 1 Univers 75 mg 2-27 tablet by ity of tablet 00:00: mouth in [place] 00 the Medical morning. Branch lisinopriL 2022-0 Yes [id number] 2.5mg Take 1 Univers 2.5 mg 2-27 tablet by ity of tablet 00:00: mouth in [place] 00 the Medical morning. Branch dapaglifloz 2022-0 Yes [id number] 10mg Take 1 Univers in 2-27 tablet by ity of (FARXIGA) 00:00: mouth in [facility] s 10 mg 00 the Medical tablet morning. Branch nicotine 21 2022-0 Yes [id number] 1{patch Apply 1 Univers mg/24 hr 2-27 } Patch to ity of patch 00:00: area(s) [place] 00 every 24 Medical (twenty-fo Branch ur) hours. furosemide 2022-0 Yes [id number] 80mg Take 1 U nivers 80 mg 2-27 tablet by ity of tablet 00:00: mouth [place] 00 every Medical morning Branch and evening. atorvastati 2022-0 Yes [id number] 80mg Take 1 Univers n 80 mg 2-27 tablet by ity of tablet 00:00: mouth at [place] 00 bedtime. Medical Branch atorvastati 2022-0 Yes [id number] 80mg Take 1 Univers n 80 mg 2-27 tablet by ity of tablet 00:00: mouth at [place] 00 bedtime. Medical Branch atorvastati 2022-0 Yes [id number] 80mg Take 1 Univers n 80 mg 2-27 tablet by ity of tablet 00:00: mouth at [place] 00 bedtime. Medical Branch atorvastati 0 Yes [id number] 80mg Take 1 Univers n 80 mg 2-27 tablet by ity of tablet 00:00: mouth at [place] [address] bedtime. Medical Branch atorvastati 2022-0 Yes [id number] 80mg Take 1 Univers n 80 mg 2-27 tablet by ity of tablet 00:00: mouth at [place] [address] bedtime. Medical Branch atorvastati 0 Yes [id number] 80mg Take 1 Univers n 80 mg 2-27 tablet by ity of tablet 00:00: mouth at [place] [address] bedtime. Medical Branch atorvastati 0 Yes [id number] 80mg Take 1 Univers n 80 mg 2-27 tablet by ity of tablet 00:00: mouth at [place] [address] bedtime. Medical Branch atorvastati 2022-0 Yes [id number] 80mg Take 1 Univers n 80 mg 2-27 tablet by ity of tablet 00:00: mouth at [place] [address] bedtime. Medical Branch atorvastati 2022-0 Yes [id number] 80mg Take 1 Univers n 80 mg 2-27 tablet by ity of tablet 00:00: mouth at [place] [address] bedtime. Medical Branch atorvastati 2022-0 Yes [id number] 80mg Take 1 Univers n 80 mg 2-27 tablet by ity of tablet 00:00: mouth at [place] [address] bedtime. Medical Branch atorvastati 2022-0 Yes [id number] 80mg Take 1 Univers n 80 mg 2-27 tablet by ity of tablet 00:00: mouth at [place] 00 bedtime. Medical Branch atorvastati 2022-0 Yes [id number] 80mg Take 1 Univers n 80 mg 2-27 tablet by ity of tablet 00:00: mouth at [place] 00 bedtime. Medical Branch atorvastati 2022-0 Yes [id number] 80mg Take 1 Univers n 80 mg 2-27 tablet by ity of tablet 00:00: mouth at [place] bedtime. Medical Branch atorvastati 2022-0 Yes [id number] 80mg Take 1 Univers n 80 mg 2-27 tablet by ity of tablet 00:00: mouth at [place] 00 bedtime. Medical Branch atorvastati 2022-0 Yes [id number] 80mg Take 1 Univers n 80 mg 2-27 tablet by ity of tablet 00:00: mouth at [place] bedtime. Medical Branch atorvastati 0 Yes [id number] 80mg Take 1 Univers n 80 mg 2-27 tablet by ity of tablet 00:00: mouth at [place] bedtime. Medical Branch atorvastati 2022-0 Yes [id number] 80mg Take 1 Univers n 80 mg 2-27 tablet by ity of tablet 00:00: mouth at [place] bedtime. Medical Branch atorvastati 0 Yes [id number] 80mg Take 1 Univers n 80 mg 2-27 tablet by ity of tablet 00:00: mouth at [place] bedtime. Medical Branch atorvastati 0 Yes [id number] 80mg Take 1 Univers n 80 mg 2-27 tablet by ity of tablet 00:00: mouth at [place] [address] bedtime. Medical Branch atorvastati 2022-0 Yes [id number] 80mg Take 1 Univers n 80 mg 2-27 tablet by ity of tablet 00:00: mouth at [place] [address] bedtime. Medical Branch atorvastati 2022-0 Yes [id number] 80mg Take 1 Univers n 80 mg 2-27 tablet by ity of tablet 00:00: mouth at [place] [address] bedtime. Medical Branch atorvastati 2022-0 Yes [id number] 80mg Take 1 Univers n 80 mg 2-27 tablet by ity of tablet 00:00: mouth at [place] [address] bedtime. Medical Branch atorvastati 2022-0 Yes [id number] 80mg Take 1 Univers n 80 mg 2-27 tablet by ity of tablet 00:00: mouth at [place] 00 bedtime. Medical Branch atorvastati 0 Yes [id number] 80mg Take 1 Univers n 80 mg 2-27 tablet by ity of tablet 00:00: mouth at [place] [address] bedtime. Medical Branch atorvastati 0 Yes [id number] 80mg Take 1 Univers n 80 mg 2-27 tablet by ity of tablet 00:00: mouth at [place] [address] bedtime. Medical Branch atorvastati 0 Yes [id number] 80mg Take 1 Univers n 80 mg 2-27 tablet by ity of tablet 00:00: mouth at [place] [address] bedtime. Medical Branch atorvastati 0 Yes [id number] 80mg Take 1 Univers n 80 mg 2-27 tablet by ity of tablet 00:00: mouth at [place] [address] bedtime. Medical Branch atorvastati 0 Yes [id number] 80mg Take 1 Univers n 80 mg 2-27 tablet by ity of tablet 00:00: mouth at [place] [address] bedtime. Medical Branch atorvastati 0 Yes [id number] 80mg Take 1 Univers n 80 mg 2-27 tablet by ity of tablet 00:00: mouth at [place] [address] bedtime. Medical Branch atorvastati 0 Yes [id number] 80mg Take 1 Univers n 80 mg 2-27 tablet by ity of tablet 00:00: mouth at [place] [address] bedtime. Medical Branch atorvastati 0 Yes [id number] 80mg Take 1 Univers n 80 mg 2-27 tablet by ity of tablet 00:00: mouth at [place] [address] bedtime. Medical Branch atorvastati 0 Yes [id number] 80mg Take 1 Univers n 80 mg 2-27 tablet by ity of tablet 00:00: mouth at [place] [address] bedtime. Medical Branch atorvastati 0 Yes [id number] 80mg Take 1 Univers n 80 mg 2-27 tablet by ity of tablet 00:00: mouth at [place] [address] bedtime. Medical Branch atorvastati 0 Yes [id number] 80mg Take 1 Univers n 80 mg 2-27 tablet by ity of tablet 00:00: mouth at [place] [address] bedtime. Medical Branch carvediloL 2022- No [id number] 3.125mg Take 1 Univers 3.125 mg 2-27 01-24 tablet by ity o f tablet 00:00: 00:00 mouth in [place] 00 :00 the Medical morning Branch and 1 tablet in the evening. Take with meals. clopidogreL 2022- No [id number] 75mg Take 1 Univers 75 mg 01-22 tablet by ity of tablet 00:00: 00:00 mouth in [place] 00 :00 the Medical morning. Branch lisinopriL 2022- No [id number] 2.5mg Take 1 Univers 2.5 mg 01-22 tablet by ity of tablet 00:00: 00:00 mouth in [place] 00 :00 the Medical morning. Branch dapaglifloz 2022- No [id number] 10mg Take 1 Univers in 01-22 tablet by ity of (FARXIGA) 00:00: 00:00 mouth in [facility] as 10 mg 00 :00 the Medical tablet morning. Branch nicotine 21 2022- No [id number] 1{patch Apply 1 Univers mg/24 hr 01-22 } Patch to ity of patch 00:00: 00:00 area(s) [place] 00 :00 every 24 Medical (twenty-fo Branch ur) hours. furosemide 2022- No [id number] 80mg Take 1 Univers 80 mg 01-22 tablet by ity of tablet 00:00: 00:00 mouth [place] 00 :00 every Medical morning Branch and evening. carvediloL 2022- No 3.125mg 3.125 mg, Univers (COREG) 01-21 Oral, BID ity of tablet 23:00: 16:48 MEALS, [place] 3.125 mg 00 :12 First dose Medic al on Sun Branch 01/21/23 at 1700, Until Discontinu ed, Routine atorvastati 2022-0 Yes 80mg 80 mg, Univ ers n (LIPITOR) 2-26 Oral, QHS, it y of tablet 80 03:00: First dose [place] mg 00 (after Medical last Branch modificati on) on 01/20/23 at 2100, Until Discontinu ed, Routine atorvastati 2022-0 Yes 80mg 80 mg, Univ ers n (LIPITOR) 2-26 Oral, QHS, it y of tablet 80 03:00: First dose [place] mg 00 (after Medical last Branch modificati on) [facility] at 2100, Until Discontinu ed, Routine lidocaine 2022-0 Yes 1{patch 1 Patch, U nivers (LIDODERM) 2-25 } Topical, ity o f 5 % (700 15:00: Administer [place] mg/patch) 00 over 12 Medical patch 1 Hours, Branch Patch DAILY, First dose (after last reorder) [facility] at 0900, Until Discontinu ed, Routine clopidogreL 2022-0 Yes 75mg 75 mg, Univ ers (PLAVIX) 75 2-25 Oral, ity of mg tablet 15:00: DAILY, [place] 75 mg 00 First dose Medical on [facility] 01/20/23 at 0900, Until Discontinu ed, Routine aspirin EC 0 Yes 81mg 81 mg, Unive rs tablet 81 2-25 Oral, ity of mg 15:00: DAILY, [place] First dose Medical on [facility] 01/20/23 at 0900, Until Discontinu ed lidocaine 2022-0 Yes 1{patch 1 Patch, U nivers (LIDODERM) 2-25 } Topical, ity o f 5 % (700 15:00: Administer [place] mg/patch) 00 over 12 Medical patch 1 Hours, Branch Patch DAILY, First dose (after last reorder) [facility] at 0900, Until Discontinu ed, Routine clopidogreL 0 Yes 75mg 75 mg, Univ ers (PLAVIX) 75 2-25 Oral, ity of mg tablet 15:00: DAILY, [place] 75 mg 00 First dose Medical on [facility] 01/20/23 at 0900, Until Discontinu ed, Routine aspirin EC 0 Yes 81mg 81 mg, Unive rs tablet 81 2-25 Oral, ity of mg 15:00: DAILY, [place] First dose Medical on [facility] 01/20/23 at 0900, Until Discontinu ed KCL 2022-0 202- No 40meq 40 mEq, Univers (KLOR-CON 01-20-25 Oral, ity of M20) tablet 13:30: 14:50 ONCE, 1 [place] 40 mEq 00 :00 dose, On Medical [facility] 01/20/23 at 0730, Routine dextrose 2022-0 Yes 250mL 250 mL, IV Un paula 10% (D10W) 2-25 Infusion, ity of bolus 13:11: PRN - SEE [place] infusion 04 INSTRUCTIO Medic al 250 mL NS, Branch Administer over 60 Minutes, Other, If blood glucose is < or = 70 mg/dL and patient is unable to swallow or has mental status changes, Starting on 01/20/23 at 0711
If blood glucose is < or = 70 mg/dL and patient is unable to swallow or has mental status changes (Give glucagon order if patient needs fluid restrictio n): IF IV access available: Dextrose 10%. 1. 125 mL (? bag) of D10W IV infusion - equivalent to 12.5 g dextrose 2. Blood glucose - draw blood glucose 15 minutes after D10W Administra tion. 3. If blood glucose is < 80 mg/dL, repeat.
dextrose 2022-0 Yes 250mL 250 mL, IV Un [place] 10% (D10W) 2-25 Infusion, ity of bolus 13:11: PRN - SEE [place] infusion 04 INSTRUCTIO Medic al 250 mL NS, Branch Administer over 60 Minutes, Other, If blood glucose is < or = 70 mg/dL and patient is unable to swallow or has mental status changes, Starting on 01/20/23 at 0711
If blood glucose is < or = 70 mg/dL and patient is unable to swallow or has mental status changes (Give glucagon order if patient needs fluid restrictio n): IF IV access available: Dextrose 10%. 1. 125 mL (? bag) of D10W IV infusion - equivalent to 12.5 g dextrose 2. Blood glucose - draw blood glucose 15 minutes after D10W Administra tion. 3. If blood glucose is < 80 mg/dL, repeat.
glucagon 2022-0 Yes 1mg 1 mg, Univers (GLUCAGEN 2-25 Intramuscu ity of DIAGNOSTIC 13:11: lar, PRN, [place] KIT) 00 Starting Medical injection 1 on Sat Branch mg 01/20/23 at 0711, Until Discontinu ed, LETITIA, Blood Glucose < or = 70 mg/dL and patient is NPO, unable to swallow or has mental changes. glucagon 0 Yes 1mg 1 mg, Univers (GLUCAGEN 25 Intramuscu ity of DIAGNOSTIC 13:11: [place], PRN, [place] KIT) 00 Starting Medical injection 1 on Sun [facility] 01/20/23 at 0711, Until Discontinu ed, LETITIA, Blood Glucose < or = 70 mg/dL and patient is NPO, unable to swallow or has mental changes. melatonin 0 Yes 3mg 3 mg, Univers (MELATIN) 2-25 Oral, QHS, ity of tablet 3 mg 03:00: First dose on Sun [facility] 01/19/23 at [place] 2100, Until Discontinu ed, Routine melatonin 2022-0 Yes 3mg 3 mg, Univers (MELATIN) 2-25 Oral, QHS, ity of tablet 3 mg 03:00: First dose on Sun [facility] 01/19/23 at [place] 2100, Until Discontinu ed, Routine atorvastati 2022-2022- No 40mg 40 mg, Uni vers n (LIPITOR) 01-20 Oral, QHS, i ty of tablet 40 03:00: 16:47 First dose [place] mg 00 :53 on Sun [facility] 01/19/23 at [place] 2100, Until Discontinu ed, Routine enoxaparin 2022-0 Yes 40mg 40 mg, Unive rs (LOVENOX) 2-24 Subcutaneo ity of injection 23:00: us, DAILY, [place] 40 mg 00 First dose Medical on [place] 01/19/23 at 1700, Until Discontinu ed, Routine enoxaparin 0 Yes 40mg 40 mg, Unive rs (LOVENOX) 2-24 Subcutaneo ity of injection 23:00: us, DAILY, [place] 40 mg 00 First dose Medical on [place] 01/19/23 at 1700, Until Discontinu ed, Routine lidocaine 2022-0 202- No 1{patch 1 Patch, Univers (LIDODERM) 01-19 } Topical, ity of 5 % (700 20:30: 09:42 Administer [place] mg/patch) 00 :00 over 12 Medical patch 1 Hours, Branch Patch ONCE, 1 dose, On Sun01/19/23 at 1430, Routine perflutren 2022- No [id number] 2mL 2 mL, IV Univers lipid 01-19 Push, ity of microsphere 20:30: 20:30 ONCE, 1 [place] s 00 :00 dose, On Medical (DEFINITY) Fri Branch injection 2 01/19/23 at mL 1430, Routine lisinopriL 2022- No 5mg 5 mg, Unive rs (PRINIVIL,Z 01-19 Oral, ity of ESTRIL) 19:45: 16:48 DAILY, [place] tablet 5 mg 00 :12 First dose Me dical (after Branch last modificati on) on Sun01/19/23 at 1345, Until Discontinu ed, Routine furosemide 2022- No 80mg 80 mg, IV U nivers (LASIX) 01-19 Push, BID, ity o f injection 17:30: 14:10 First dose [place] 80 mg 00 :[address] [facility] Medical 01/19/23 at Branch 1130, Until Discontinu ed, Routine acetaminoph 2023-0 Yes 650mg 650 mg, Un paula en -24 Oral, ity of (TYLENOL) 17:24: Q6HPRN, [place] tablet 650 01 Starting Medic al mg on Sun [place] 01/19/23 at 1124, Until Discontinu ed, Routine, Pain (scale 1-3) acetaminoph 2023-0 Yes 650mg 650 mg, Un [place] en 2-24 Oral, ity of (TYLENOL) 17:24: Q6HPRN, [place] tablet 650 01 Starting Medic al mg on Sun [place] 01/19/23 at 1124, Until Discontinu ed, Routine, Pain (scale 1-3) hydroCHLORO 3-0 2023- No 25mg Take 25 mg Univers thiazide 25 -16 01- by mouth ity of mg tablet 19:18: 00:00 in the [place] 10 :00 morning. [facility] Branch hydroCHLORO 2022-0 2022- No 25mg Take 25 mg Univers thiazide 25 -16 01-21 by mouth ity of mg tablet 19:18: 00:00 in the [place] 10 :00 morning. [facility] Branch hydroCHLORO 2022-0 2023- No 25mg Take 25 mg Univers thiazide 25 2-21 02-21 by mouth ity of mg tablet 19:18: 00:00 in the [place] 10 :00 morning. Medical Branch hydroCHLORO 2023-0 2023- No 25mg Take 25 mg Univers thiazide 25 2-21 02-21 by mouth ity of mg tablet 19:18: 00:00 in the [place] 10 :00 morning. Medical Branch hydroCHLORO 2023-0 2023- No 25mg Take 25 mg Univers thiazide 25 2-21 -21 by mouth ity of mg tablet 19:18: 00:00 in the [place] 10 :00 morning. Medical Branch hydroCHLORO 2023-0 2023- No 25mg Take 25 mg Univers thiazide 25 2-21 -21 by mouth ity of mg tablet 19:18: 00:00 in the [place] 10 :00 morning. Medical Branch furosemide 2023-0 Yes 80mg Take 2 [facility] 40 mg 2-21 tablets by [facility] of tablet 00:00: mouth [place] 00 every Medical morning. Branch furosemide 2023-0 Yes [id number] 40mg Take 1 [facility] 40 mg 2-21 9109 tablet by ity of tablet 00:00: mouth [place] 00 every Medical evening. Branch furosemide 2023-0 Yes 80mg Take 2 [facility] 40 mg 2-21 tablets by ity of tablet 00:00: mouth [place] 00 every Medical morning. Branch furosemide 2023-0 Yes [id number] 40mg Take 1 [facility] 40 mg 2-21 9109 tablet by ity of tablet 00:00: mouth [place] 00 every Medical evening. Branch furosemide 2023-0 Yes 80mg Take 2 [facility] 40 mg 2-21 tablets by ity of tablet 00:00: mouth [place] 00 every Medical morning. Branch furosemide 2023-0 Yes [id number] 40mg Take 1 [facility] 40 mg 2-21 9109 tablet by ity of tablet 00:00: mouth [place] 00 every Medical evening. Branch furosemide 2023-0 2023- No 80mg Take 2 [facility] ers 40 mg 2-21 -27 tablets by ity of tablet 00:00: 00:00 mouth [place] 00 :00 every Medical morning. Branch furosemide 2023-0 2023- No [id number] 40mg Take 1 [facility] 40 mg 2-21 -27 9109 tablet by ity of tablet 00:00: 00:00 mouth [place] 00 :00 every Medical evening. Branch furosemide 2022-2022- No 80mg Take 2 [facility] ers 40 mg 01-16 tablets by ity of tablet 00:00: 00:00 mouth [place] 00 :00 every Medical morning. Branch furosemide 2022-0 2022- No [id number] 40mg Take 1 [facility] 40 mg 01-16 9109 tablet by ity of tablet 00:00: 00:00 mouth [place] 00 :00 every Medical evening. Branch hydroCHLORO 2022-0 Yes 25mg Take 25 mg [facility] thiazide 25 2-14 by mouth ity of mg tablet 14:11: in the [place] [address] morning. Medical Branch hydroCHLORO 2022-0 Yes 25mg Take 25 mg [facility] thiazide 25 2-14 by mouth ity of mg tablet 14:11: in the [place] [address] morning. Medical Branch furosemide 2022-0 2022- No 40mg 40 mg, IV U nivers (LASIX) 01-05 Push, ity of injection 21:30: 21:49 ONCE, 1 [place] 40 mg 00 :00 dose, On Medical Fri Branch 01/05/23 at 1530, [place] furosemide 2022-0 2022- No 40mg 40 mg, IV U nivers (LASIX) 01-05 Push, ity of injection 20:00: 19:59 ONCE, 1 [place] 40 mg 00 :00 dose, On Medical Fri Branch 01/05/23 at 1400, [place] albuterol 2022-0 2022- No 5mg 5 mg, Univer s (PROVENTIL) 01-05 Inhalation i ty of 2.5 mg /3 20:00: 19:52 , ONCE, 1 [place] mL (0.083 00 :00 dose, On Medica l %) Fri Branch nebulizer 01/05/23 at solution 5 1400, [place] mg albuterol 2022-0 Yes [id number] 2{puff} Inhale 2 [facility] 90 2-10 Puffs ity of mcg/actuati 00:00: every 4 [place] as on inhaler 00 (four) Medical hours as Branch needed for Wheezing or Shortness of Breath. albuterol 2022-0 Yes [id number] 2{puff} Inhale 2 [facility] 90 2-10 Puffs ity of mcg/actuati 00:00: every 4 [place] as on inhaler 00 (four) Medical hours as Branch needed for Wheezing or Shortness of Breath. albuterol Yes [id number] 2{puff} Inhale 2 [facility] 90 2-10 Puffs ity of mcg/actuati 00:00: every 4 [place] as on inhaler 00 (four) Medical hours as Branch needed for Wheezing or Shortness of Breath. albuterol Yes [id number] 2{puff} Inhale 2 [facility] 90 2-10 Puffs ity of mcg/actuati 00:00: every 4 [place] as on inhaler 00 (four) Medical hours as Branch needed for Wheezing or Shortness of Breath. albuterol Yes [id number] 2{puff} Inhale 2 [facility] 90 2-10 Puffs ity of mcg/actuati 00:00: every 4 [place] as on inhaler 00 (four) Medical hours as Branch needed for Wheezing or Shortness of Breath. albuterol Yes [id number] 2{puff} Inhale 2 [facility] 90 2-10 Puffs ity of mcg/actuati 00:00: every 4 [place] as on inhaler 00 (four) Medical hours as Branch needed for Wheezing or Shortness of Breath. albuterol Yes [id number] 2{puff} Inhale 2 [facility] 90 2-10 Puffs ity of mcg/actuati 00:00: every 4 [place] as on inhaler 00 (four) Medical hours as Branch needed for Wheezing or Shortness of Breath. albuterol Yes [id number] 2{puff} Inhale 2 [facility] 90 2-10 Puffs ity of mcg/actuati 00:00: every 4 [place] as on inhaler 00 (four) Medical hours as Branch needed for Wheezing or Shortness of Breath. albuterol Yes [id number] 2{puff} Inhale 2 [facility] 90 2-10 Puffs ity of mcg/actuati 00:00: every 4 [place] as on inhaler 00 (four) Medical hours as Branch needed for Wheezing or Shortness of Breath. albuterol Yes [id number] 2{puff} Inhale 2 [facility] 90 2-10 Puffs ity of mcg/actuati 00:00: every 4 [place] as on inhaler 00 (four) Medical hours as Branch needed for Wheezing or Shortness of Breath. albuterol Yes [id number] 2{puff} Inhale 2 [facility] 90 2-10 Puffs ity of mcg/actuati 00:00: every 4 [place] as on inhaler 00 (four) Medical hours as Branch needed for Wheezing or Shortness of Breath. albuterol Yes [id number] 2{puff} Inhale 2 [facility] 90 2-10 Puffs ity of mcg/actuati 00:00: every 4 [place] as on inhaler 00 (four) Medical hours as Branch needed for Wheezing or Shortness of Breath. albuterol Yes [id number] 2{puff} Inhale 2 [facility] 90 2-10 Puffs ity of mcg/actuati 00:00: every 4 [place] as on inhaler 00 (four) Medical hours as Branch needed for Wheezing or Shortness of Breath. albuterol Yes [id number] 2{puff} Inhale 2 [facility] 90 2-10 Puffs ity of mcg/actuati 00:00: every 4 [place] as on inhaler 00 (four) Medical hours as Branch needed for Wheezing or Shortness of Breath. albuterol Yes [id number] 2{puff} Inhale 2 [facility] 90 2-10 Puffs ity of mcg/actuati 00:00: every 4 [place] as on inhaler 00 (four) Medical hours as Branch needed for Wheezing or Shortness of Breath. albuterol Yes [id number] 2{puff} Inhale 2 [facility] 90 2-10 Puffs ity of mcg/actuati 00:00: every 4 [place] as on inhaler 00 (four) Medical hours as Branch needed for Wheezing or Shortness of Breath. albuterol Yes [id number] 2{puff} Inhale 2 [facility] 90 2-10 Puffs ity of mcg/actuati 00:00: every 4 [place] as on inhaler 00 (four) Medical hours as Branch needed for Wheezing or Shortness of Breath. albuterol Yes [id number] 2{puff} Inhale 2 [facility] 90 2-10 Puffs ity of mcg/actuati 00:00: every 4 [place] as on inhaler 00 (four) Medical hours as Branch needed for Wheezing or Shortness of Breath. albuterol Yes [id number] 2{puff} Inhale 2 [facility] 90 2-10 Puffs ity of mcg/actuati 00:00: every 4 [place] as on inhaler 00 (four) Medical hours as Branch needed for Wheezing or Shortness of Breath. albuterol Yes [id number] 2{puff} Inhale 2 [facility] 90 2-10 Puffs ity of mcg/actuati 00:00: every 4 [place] as on inhaler 00 (four) Medical hours as Branch needed for Wheezing or Shortness of Breath. albuterol Yes [id number] 2{puff} Inhale 2 [facility] 90 2-10 Puffs ity of mcg/actuati 00:00: every 4 [place] as on inhaler 00 (four) Medical hours as Branch needed for Wheezing or Shortness of Breath. albuterol Yes [id number] 2{puff} Inhale 2 [facility] 90 2-10 Puffs ity of mcg/actuati 00:00: every 4 [place] as on inhaler 00 (four) Medical hours as Branch needed for Wheezing or Shortness of Breath. albuterol Yes [id number] 2{puff} Inhale 2 [facility] 90 2-10 Puffs ity of mcg/actuati 00:00: every 4 [place] as on inhaler 00 (four) Medical hours as Branch needed for Wheezing or Shortness of Breath. albuterol Yes [id number] 2{puff} Inhale 2 [facility] 90 2-10 Puffs ity of mcg/actuati 00:00: every 4 [place] as on inhaler 00 (four) Medical hours as Branch needed for Wheezing or Shortness of Breath. albuterol Yes [id number] 2{puff} Inhale 2 [facility] 90 2-10 Puffs ity of mcg/actuati 00:00: every 4 [place] as on inhaler 00 (four) Medical hours as Branch needed for Wheezing or Shortness of Breath. albuterol Yes [id number] 2{puff} Inhale 2 [facility] 90 2-10 Puffs ity of mcg/actuati 00:00: every 4 [place] as on inhaler 00 (four) Medical hours as Branch needed for Wheezing or Shortness of Breath. albuterol Yes [id number] 2{puff} Inhale 2 [facility] 90 2-10 Puffs ity of mcg/actuati 00:00: every 4 [place] as on inhaler 00 (four) Medical hours as Branch needed for Wheezing or Shortness of Breath. albuterol Yes [id number] 2{puff} Inhale 2 [facility] 90 2-10 Puffs ity of mcg/actuati 00:00: every 4 [place] as on inhaler 00 (four) Medical hours as Branch needed for Wheezing or Shortness of Breath. albuterol Yes [id number] 2{puff} Inhale 2 [facility] 90 2-10 Puffs ity of mcg/actuati 00:00: every 4 [place] as on inhaler 00 (four) Medical hours as Branch needed for Wheezing or Shortness of Breath. albuterol Yes [id number] 2{puff} Inhale 2 [facility] 90 2-10 Puffs ity of mcg/actuati 00:00: every 4 [place] as on inhaler 00 (four) Medical hours as Branch needed for Wheezing or Shortness of Breath. albuterol Yes [id number] 2{puff} Inhale 2 [facility] 90 2-10 Puffs ity of mcg/actuati 00:00: every 4 [place] as on inhaler 00 (four) Medical hours as Branch needed for Wheezing or Shortness of Breath. albuterol Yes [id number] 2{puff} Inhale 2 [facility] 90 2-10 Puffs ity of mcg/actuati 00:00: every 4 [place] as on inhaler 00 (four) Medical hours as Branch needed for Wheezing or Shortness of Breath. albuterol Yes [id number] 2{puff} Inhale 2 [facility] 90 2-10 Puffs ity of mcg/actuati 00:00: every 4 [place] as on inhaler 00 (four) Medical hours as Branch needed for Wheezing or Shortness of Breath. albuterol Yes [id number] 2{puff} Inhale 2 [facility] 90 2-10 Puffs ity of mcg/actuati 00:00: every 4 [place] as on inhaler 00 (four) Medical hours as Branch needed for Wheezing or Shortness of Breath. albuterol Yes [id number] 2{puff} Inhale 2 [facility] 90 2-10 Puffs ity of mcg/actuati 00:00: every 4 [place] as on inhaler 00 (four) Medical hours as Branch needed for Wheezing or Shortness of Breath. albuterol Yes [id number] 2{puff} Inhale 2 [facility] 90 2-10 Puffs ity of mcg/actuati 00:00: every 4 [place] as on inhaler 00 (four) Medical hours as Branch needed for Wheezing or Shortness of Breath. albuterol Yes [id number] 2{puff} Inhale 2 [facility] 90 2-10 Puffs ity of mcg/actuati 00:00: every 4 [place] as on inhaler 00 (four) Medical hours as Branch needed for Wheezing or Shortness of Breath. albuterol Yes [id number] 2{puff} Inhale 2 [facility] 90 2-10 Puffs ity of mcg/actuati 00:00: every 4 [place] as on inhaler 00 (four) Medical hours as Branch needed for Wheezing or Shortness of Breath. albuterol Yes [id number] 2{puff} Inhale 2 [facility] 90 2-10 Puffs ity of mcg/actuati 00:00: every 4 [place] as on inhaler 00 (four) Medical hours as Branch needed for Wheezing or Shortness of Breath. albuterol Yes [id number] 2{puff} Inhale 2 [facility] 90 2-10 Puffs ity of mcg/actuati 00:00: every 4 [place] as on inhaler 00 (four) Medical hours as Branch needed for Wheezing or Shortness of Breath. albuterol Yes [id number] 2{puff} Inhale 2 [facility] 90 2-10 Puffs ity of mcg/actuati 00:00: every 4 [place] as on inhaler 00 (four) Medical hours as Branch needed for Wheezing or Shortness of Breath. albuterol Yes [id number] 2{puff} Inhale 2 [facility] 90 2-10 Puffs ity of mcg/actuati 00:00: every 4 [place] as on inhaler 00 (four) Medical hours as Branch needed for Wheezing or Shortness of Breath. albuterol Yes [id number] 2{puff} Inhale 2 [facility] 90 2-10 Puffs ity of mcg/actuati 00:00: every 4 [place] as on inhaler 00 (four) Medical hours as Branch needed for Wheezing or Shortness of Breath. albuterol Yes [id number] 2{puff} Inhale 2 [facility] 90 2-10 Puffs ity of mcg/actuati 00:00: every 4 [place] as on inhaler 00 (four) Medical hours as Branch needed for Wheezing or Shortness of Breath. albuterol Yes [id number] 2{puff} Inhale 2 [facility] 90 2-10 Puffs ity of mcg/actuati 00:00: every 4 [place] as on inhaler 00 (four) Medical hours as Branch needed for Wheezing or Shortness of Breath. albuterol Yes [id number] 2{puff} Inhale 2 [facility] 90 2-10 Puffs ity of mcg/actuati 00:00: every 4 [place] as on inhaler 00 (four) Medical hours as Branch needed for Wheezing or Shortness of Breath. albuterol Yes [id number] 2{puff} Inhale 2 [facility] 90 2-10 Puffs ity of mcg/actuati 00:00: every 4 [place] as on inhaler 00 (four) Medical hours as Branch needed for Wheezing or Shortness of Breath. albuterol Yes [id number] 2{puff} Inhale 2 [facility] 90 2-10 Puffs ity of mcg/actuati 00:00: every 4 [place] as on inhaler 00 (four) Medical hours as Branch needed for Wheezing or Shortness of Breath. albuterol Yes [id number] 2{puff} Inhale 2 [facility] 90 2-10 Puffs ity of mcg/actuati 00:00: every 4 [place] as on inhaler 00 (four) Medical hours as Branch needed for Wheezing or Shortness of Breath. albuterol Yes [id number] 2{puff} Inhale 2 [facility] 90 2-10 Puffs ity of mcg/actuati 00:00: every 4 [place] as on inhaler 00 (four) Medical hours as Branch needed for Wheezing or Shortness of Breath. albuterol Yes [id number] 2{puff} Inhale 2 [facility] 90 2-10 Puffs ity of mcg/actuati 00:00: every 4 [place] as on inhaler 00 (four) Medical hours as Branch needed for Wheezing or Shortness of Breath. albuterol Yes [id number] 2{puff} Inhale 2 [facility] 90 2-10 Puffs ity of mcg/actuati 00:00: every 4 [place] as on inhaler 00 (four) Medical hours as Branch needed for Wheezing or Shortness of Breath. albuterol Yes [id number] 2{puff} Inhale 2 [facility] 90 2-10 Puffs ity of mcg/actuati 00:00: every 4 [place] as on inhaler 00 (four) Medical hours as Branch needed for Wheezing or Shortness of Breath. albuterol Yes [id number] 2{puff} Inhale 2 [facility] 90 2-10 Puffs ity of mcg/actuati 00:00: every 4 [place] as on inhaler 00 (four) Medical hours as Branch needed for Wheezing or Shortness of Breath. albuterol Yes [id number] 2{puff} Inhale 2 [facility] 90 2-10 Puffs ity of mcg/actuati 00:00: every 4 [place] as on inhaler 00 (four) Medical hours as Branch needed for Wheezing or Shortness of Breath. albuterol Yes [id number] 2{puff} Inhale 2 [facility] 90 2-10 Puffs ity of mcg/actuati 00:00: every 4 [place] as on inhaler 00 (four) Medical hours as Branch needed for Wheezing or Shortness of Breath. albuterol Yes [id number] 2{puff} Inhale 2 [facility] 90 2-10 Puffs ity of mcg/actuati 00:00: every 4 [place] as on inhaler 00 (four) Medical hours as Branch needed for Wheezing or Shortness of Breath. albuterol Yes [id number] 2{puff} Inhale 2 [facility] 90 2-10 Puffs ity of mcg/actuati 00:00: every 4 [place] as on inhaler 00 (four) Medical hours as Branch needed for Wheezing or Shortness of Breath. atorvastati 2022-0 3- No 40mg Take 40 mg [facility] n 40 mg 12-21 by mouth ity of tablet 11:: :00 at [place] [address] :00 bedtime. Medical Branch clopidogreL 2022-0 2023- No 75mg Take 75 mg [facility] 75 mg 12-21 by mouth ity of tablet 11:: 00:00 in the [place] 14 :00 morning. Medical Branch aspirin 81 2022-2022- No Take by [facility] vers mg Cap 12-21 mouth. ity of 11:: 00:00 [place] 14 :00 Medical Branch furosemide 2022-0 2022- No 40mg Take 40 mg [facility] 40 mg 12-21 by mouth ity of tablet 11:: :00 in the [place] 14 :00 morning. Medical Branch carvediloL 2022-2022- No 3.125mg Take 3.125 [facility] 3.125 mg 12-21 mg by ity of tablet 11::00 mouth in [place] 14 :00 the Medical morning Branch and 3.125 mg in the evening. Take with meals. lisinopriL 2022-2022- No 5mg Take 5 mg [facility] n[facility] 5 mg tablet 12-21 by mouth ity of 11:: 00:00 in the [place] 14 :00 morning. Medical Branch atorvastati 2022-2022- No 40mg Take 40 mg [facility] n 40 mg 12-21 by mouth ity of tablet 11:: 00:00 at [place] 14 :00 bedtime. Medical Branch clopidogreL 2022-0 2022- No 75mg Take 75 mg [facility] 75 mg 12-21 by mouth ity of tablet 11:: 00:00 in the [place] 14 :00 morning. Medical Branch aspirin 81 2022-2022- No Take by [facility] vers mg Cap 12-21 mouth. ity of 11:: 00:00 [place] 14 :00 Medical Branch furosemide 2022-0 2022- No 40mg Take 40 mg [facility] 40 mg 12-21 by mouth ity of tablet 11:: 00:00 in the [place] 14 :00 morning. Medical Branch carvediloL 2022-0 2023- No 3.125mg Take 3.125 [facility] 3.125 mg 12-21-26 mg by ity of tablet 11:: 00:00 mouth in [place] 14 :00 the Medical morning Branch and 3.125 mg in the evening. Take with meals. lisinopriL 2022-2022- No 5mg Take 5 mg [facility] 5 mg tablet 12-21 by mouth ity of 11:: 00:00 in the [place] 14 :00 morning. Medical Branch atorvastati 2022-2022- No 40mg Take 40 mg [facility] n 40 mg 12-21 by mouth ity of tablet 11:: 00:00 at [place] 14 :00 bedtime. Medical Branch clopidogreL 2022-2022- No 75mg Take 75 mg [facility] 75 mg 12-21 by mouth ity of tablet 11:: 00:00 in the [place] 14 :00 morning. Medical Branch aspirin 81 2022- No Take by [facility] vers mg Cap 12-21 mouth. ity of 11:: 00:00 [place] 14 :00 Medical Branch furosemide 2022-0 2022- No 40mg Take 40 mg [facility] 40 mg 12-21 by mouth ity of tablet 11:: :00 in the [place] 14 :00 morning. Medical Branch carvediloL 2022- No 3.125mg Take 3.125 [facility] 3.125 mg 12-21 mg by ity of tablet 11:: 00:00 mouth in [place] 14 :00 the Medical morning Branch and 3.125 mg in the evening. Take with meals. lisinopriL 2022-2022- No 5mg Take 5 mg [facility] 5 mg tablet 12-21 by mouth ity of 11:: 00:00 in the [place] 14 :00 morning. Medical Branch metoprolol 2022-0 Yes 25mg Take 25 mg [facility] nivers tartrate 12-21 by mouth ity of mg tablet 11:13: in the [place] 26 morning Medical and 25 mg Branch in the evening. hydroCHLORO 2022-0 Yes 25mg Take 25 mg [facility] thiazide 12-21 by mouth ity of mg tablet 11:13: in the [place] [address] morning. Medical Branch metoprolol 2022-0 Yes 25mg Take 25 mg U nivers tartrate 25 1-26 by mouth ity of mg tablet 11:13: in the [place] [address] morning Medical and 25 mg Branch in the evening. hydroCHLORO 2023-0 Yes 25mg Take 25 mg [facility] thiazide 25 1-26 by mouth ity of mg tablet 11:13: in the [place] [address] morning. Medical Branch metoprolol 3-0 Yes 25mg Take 25 mg [facility] nivers tartrate 25 1-26 by mouth ity of mg tablet 11:13: in the [place] [address] morning Medical and 25 mg Branch in the evening. hydroCHLORO 2023-0 Yes 25mg Take 25 mg [facility] thiazide 25 1-26 by mouth ity of mg tablet 11:13: in the [place] [address] morning. Medical Branch metoprolol 3-0 Yes 25mg Take 25 mg [facility] nivers tartrate 25 1-26 by mouth ity of mg tablet 11:13: in the [place] [address] morning Medical and 25 mg Branch in the evening. metoprolol 3-0 Yes 25mg Take 25 mg [facility] nivers tartrate 25 1- by mouth ity of mg tablet 11:13: in the [place] [address] morning Medical and 25 mg Branch in the evening. metoprolol 3-0 Yes 25mg Take 25 mg [facility] nivers tartrate 25 1-26 by mouth ity of mg tablet 11:13: in the [place] [address] morning Medical and 25 mg Branch in the evening. metoprolol 3-0 Yes 25mg Take 25 mg [facility] nivers tartrate 25 1-26 by mouth ity of mg tablet 11:13: in the [place] [address] morning Medical and 25 mg Branch in the evening. metoprolol 2023-0 Yes 25mg Take 25 mg [facility] nivers tartrate 25 1-26 by mouth ity of mg tablet 11:13: in the [place] [address] morning Medical and 25 mg Branch in the evening. metoprolol 2023-0 Yes 25mg Take 25 mg [facility] nivers tartrate 25 1-26 by mouth ity of mg tablet 11:13: in the [place] [address] morning Medical and 25 mg Branch in the evening. hydroCHLORO 2023-0 Yes 25mg Take 25 mg [facility] thiazide 25 1-26 by mouth ity of mg tablet 11:13: in the [place] [address] morning. Medical Branch metoprolol 2023-0 Yes 25mg Take 25 mg [facility] nivers tartrate 25 1-26 by mouth ity of mg tablet 11:13: in the [place] morning Medical and 25 mg Branch in the evening. hydroCHLORO 0 Yes 25mg Take 25 mg [facility] thiazide 25 1-26 by mouth ity of mg tablet 11:13: in the [place] morning. Medical Branch benzonatate Yes [id number] 200mg Take 1 [facility] 200 mg 1-26 capsule by ity of capsule 00:00: mouth 3 [place] 00 (three) Medical times [place] daily as needed for Cough. atorvastati Yes [id number] 40mg Take 1 [facility] n 40 mg 1-26 tablet by ity of tablet 00:00: mouth at [place] [address] bedtime. Medical Branch carvediloL Yes [id number] 3.125mg Take 1 [facility] 3.125 mg 1-26 tablet by ity of tablet 00:00: mouth in [place] 00 the Medical morning Branch and 1 tablet in the evening. Take with meals. clopidogreL 2022-0 Yes [id number] 75mg Take 1 [facility] 75 mg 1-26 tablet by ity of tablet 00:00: mouth in [place] 00 the Medical morning. Branch furosemide 0 Yes [id number] 40mg Take 1 [facility] 40 mg 1-26 tablet by ity of tablet 00:00: mouth in [place] 00 the Medical morning. Branch lisinopriL 0 Yes [id number] 5mg Take 1 [facility] 5 mg tablet 1-26 tablet by ity of 00:00: mouth in [place] 00 the Medical morning. Branch aspirin 81 0 Yes [id number] 1{capsu Take 1 [facility] mg Cap 1-26 le} capsule by ity of 00:00: mouth [place] 00 daily. Medical Branch benzonatate 2022-0 Yes [id number] 200mg Take 1 [facility] 200 mg 1-26 capsule by ity of capsule 00:00: mouth 3 [place] 00 (three) Medical times [place] daily as needed for Cough. atorvastati 0 Yes [id number] 40mg Take 1 [facility] n 40 mg 1-26 tablet by ity of tablet 00:00: mouth at [place] [address] bedtime. Medical Branch carvediloL Yes [id number] 3.125mg Take 1 [facility] 3.125 mg 1-26 tablet by ity of tablet 00:00: mouth in [place] 00 the Medical morning Branch and 1 tablet in the evening. Take with meals. clopidogreL 2022-0 Yes [id number] 75mg Take 1 [facility] 75 mg 1-26 tablet by ity of tablet 00:00: mouth in [place] 00 the Medical morning. Branch furosemide 2022-0 Yes [id number] 40mg Take 1 [facility] 40 mg 1-26 tablet by ity of tablet 00:00: mouth in [place] 00 the Medical morning. Branch lisinopriL 2022-0 Yes [id number] 5mg Take 1 [facility] 5 mg tablet 1-26 tablet by ity of 00:00: mouth in [place] 00 the Medical morning. Branch aspirin 81 2022-0 Yes [id number] 1{capsu Take 1 [facility] mg Cap 1-26 le} capsule by ity of 00:00: mouth [place] 00 daily. Medical Branch benzonatate 2022-0 Yes [id number] 200mg Take 1 [facility] 200 mg 1-26 capsule by ity of capsule 00:00: mouth 3 [place] 00 (three) Medical times [place] daily as needed for Cough. atorvastati 2022-0 Yes [id number] 40mg Take 1 [facility] n 40 mg 1-26 tablet by ity of tablet 00:00: mouth at [place] 00 bedtime. Medical Branch carvediloL 2022-0 Yes [id number] 3.125mg Take 1 [facility] 3.125 mg 1-26 tablet by ity of tablet 00:00: mouth in [place] 00 the Medical morning Branch and 1 tablet in the evening. Take with meals. clopidogreL 2022-0 Yes [id number] 75mg Take 1 [facility] 75 mg 1-26 tablet by ity of tablet 00:00: mouth in [place] 00 the Medical morning. Branch furosemide 2022-0 Yes [id number] 40mg Take 1 [facility] 40 mg 1-26 tablet by ity of tablet 00:00: mouth in [place] 00 the Medical morning. Branch lisinopriL 2022-0 Yes [id number] 5mg Take 1 [facility] 5 mg tablet 1-26 tablet by ity of 00:00: mouth in [place] 00 the Medical morning. Branch aspirin 81 2022-0 Yes [id number] 1{capsu Take 1 [facility] mg Cap 1-26 le} capsule by ity of 00:00: mouth [place] 00 daily. Medical Branch benzonatate 2022-0 Yes [id number] 200mg Take 1 [facility] 200 mg 1-26 capsule by ity of capsule 00:00: mouth 3 [place] 00 (three) Medical times Branch daily as needed for Cough. atorvastati 0 Yes [id number] 40mg Take 1 [facility] n 40 mg 1-26 tablet by ity of tablet 00:00: mouth at [place] [address] bedtime. Medical Branch carvediloL 2022-0 Yes [id number] 3.125mg Take 1 [facility] 3.125 mg 1-26 tablet by ity of tablet 00:00: mouth in [place] 00 the Medical morning Branch and 1 tablet in the evening. Take with meals. clopidogreL 2022-0 Yes [id number] 75mg Take 1 [facility] 75 mg 1-26 tablet by ity of tablet 00:00: mouth in [place] 00 the Medical morning. Branch furosemide 2022-0 Yes [id number] 40mg Take 1 [facility] 40 mg 1-26 tablet by ity of tablet 00:00: mouth in [place] 00 the Medical morning. Branch lisinopriL 2022-0 Yes [id number] 5mg Take 1 [facility] 5 mg tablet 1-26 tablet by ity of 00:00: mouth in [place] 00 the Medical morning. Branch aspirin 81 2022-0 Yes [id number] 1{capsu Take 1 [facility] mg Cap 1-26 le} capsule by ity of 00:00: mouth [place] 00 daily. Medical Branch benzonatate 0 Yes [id number] 200mg Take 1 [facility] 200 mg 1-26 capsule by ity of capsule 00:00: mouth 3 [place] 00 (three) Medical times Branch daily as needed for Cough. atorvastati 2022-0 Yes [id number] 40mg Take 1 [facility] n 40 mg 1-26 tablet by ity of tablet 00:00: mouth at [place] 00 bedtime. Medical Branch carvediloL 2022-0 Yes [id number] 3.125mg Take 1 [facility] 3.125 mg 1-26 tablet by ity of tablet 00:00: mouth in [place] 00 the Medical morning Branch and 1 tablet in the evening. Take with meals. clopidogreL 2022-0 Yes [id number] 75mg Take 1 [facility] 75 mg 1-26 tablet by ity of tablet 00:00: mouth in [place] 00 the Medical morning. Branch furosemide 2022-0 Yes [id number] 40mg Take 1 [facility] 40 mg 1-26 tablet by it[facility] of tablet 00:00: mouth in [place] 00 the Medical morning. Branch lisinopriL 2022-0 Yes [id number] 5mg Take 1 U nivers 5 mg tablet 1-26 tablet by ity of 00:00: mouth in [place] 00 the Medical morning. Branch aspirin 81 2022-0 Yes [id number] 1{capsu Take 1 [facility] mg Cap 1-26 le} capsule by ity of 00:00: mouth [place] 00 daily. Medical Branch benzonatate 2022-0 Yes [id number] 200mg Take 1 [facility] 200 mg 1-26 capsule by ity of capsule 00:00: mouth 3 [place] 00 (three) Medical times [place] daily as needed for Cough. atorvastati 2022-0 Yes [id number] 40mg Take 1 [facility] n 40 mg 1-26 tablet by ity of tablet 00:00: mouth at [place] [address] bedtime. Medical Branch carvediloL 2022-0 Yes [id number] 3.125mg Take 1 [facility] 3.125 mg 1-26 tablet by ity of tablet 00:00: mouth in [place] 00 the Medical morning Branch and 1 tablet in the evening. Take with meals. clopidogreL 2022-0 Yes [id number] 75mg Take 1 [facility] 75 mg 1-26 tablet by ity of tablet 00:00: mouth in [place] 00 the Medical morning. Branch lisinopriL 2022-0 Yes [id number] 5mg Take 1 U nivers 5 mg tablet 1-26 tablet by ity of 00:00: mouth in [place] 00 the Medical morning. Branch aspirin 81 2022-0 Yes [id number] 1{capsu Take 1 [facility] mg Cap 1-26 le} capsule by ity of 00:00: mouth [place] 00 daily. Medical Branch benzonatate 2022-0 Yes [id number] 200mg Take 1 [facility] 200 mg 1-26 capsule by ity of capsule 00:00: mouth 3 [place] 00 (three) Medical times [place] daily as needed for Cough. atorvastati 2022-0 Yes [id number] 40mg Take 1 [facility] n 40 mg 1-26 tablet by ity of tablet 00:00: mouth at [place] [address] bedtime. Medical Branch carvediloL 2022-0 Yes [id number] 3.125mg Take 1 [facility] 3.125 mg 1-26 tablet by ity of tablet 00:00: mouth in [place] 00 the Medical morning Branch and 1 tablet in the evening. Take with meals. clopidogreL 2022-0 Yes [id number] 75mg Take 1 [facility] 75 mg 1-26 tablet by ity of tablet 00:00: mouth in [place] 00 the Medical morning. Branch lisinopriL 2022-0 Yes [id number] 5mg Take 1 [facility] nivers 5 mg tablet 1-26 tablet by ity of 00:00: mouth in [place] 00 the Medical morning. Branch aspirin 81 2022-0 Yes [id number] 1{capsu Take 1 [facility] mg Cap 1-26 le} capsule by ity of 00:00: mouth [place] 00 daily. Medical Branch benzonatate 2022-0 Yes [id number] 200mg Take 1 [facility] 200 mg 1-26 capsule by ity of capsule 00:00: mouth 3 [place] [address] (three) Medical times [place] daily as needed for Cough. atorvastati 2022-0 Yes [id number] 40mg Take 1 [facility] n 40 mg 1-26 tablet by ity of tablet 00:00: mouth at [place] [address] bedtime. Medical Branch carvediloL 2022-0 Yes [id number] 3.125mg Take 1 [facility] 3.125 mg 1-26 tablet by ity of tablet 00:00: mouth in [place] 00 the Medical morning Branch and 1 tablet in the evening. Take with meals. clopidogreL 2022-0 Yes [id number] 75mg Take 1 [facility] 75 mg 1-26 tablet by ity of tablet 00:00: mouth in [place] 00 the Medical morning. Branch lisinopriL 2022-0 Yes [id number] 5mg Take 1 [facility] nivers 5 mg tablet 1-26 tablet by ity of 00:00: mouth in [place] 00 the Medical morning. Branch aspirin 81 2022-0 Yes [id number] 1{capsu Take 1 [facility] mg Cap 1-26 le} capsule by ity of 00:00: mouth [place] 00 daily. Medical Branch benzonatate 2022-0 Yes [id number] 200mg Take 1 [facility] 200 mg 1-26 capsule by ity of capsule 00:00: mouth 3 [place] 00 (three) Medical times Branch daily as needed for Cough. atorvastati 2022-0 Yes [id number] 40mg Take 1 [facility] n 40 mg 1-26 tablet by ity of tablet 00:00: mouth at [place] 00 bedtime. Medical Branch carvediloL 2022-0 Yes [id number] 3.125mg Take 1 [facility] 3.125 mg 1-26 tablet by ity of tablet 00:00: mouth in [place] 00 the Medical morning Branch and 1 tablet in the evening. Take with meals. clopidogreL 2022-0 Yes [id number] 75mg Take 1 [facility] 75 mg 1-26 tablet by ity of tablet 00:00: mouth in [place] 00 the Medical morning. Branch furosemide 2022-0 Yes [id number] 40mg Take 1 [facility] 40 mg 1-26 tablet by ity of tablet 00:00: mouth in [place] 00 the Medical morning. Branch lisinopriL 2022-0 Yes [id number] 5mg Take 1 [facility] nivers 5 mg tablet 1-26 tablet by ity of 00:00: mouth in [place] 00 the Medical morning. Branch aspirin 81 2022-0 Yes [id number] 1{capsu Take 1 [facility] mg Cap 1-26 le} capsule by ity of 00:00: mouth [place] [address] daily. Medical Branch benzonatate 2022-0 Yes [id number] 200mg Take 1 [facility] 200 mg 1-26 capsule by ity of capsule 00:00: mouth 3 [place] 00 (three) Medical times [place] daily as needed for Cough. atorvastati 2022-0 Yes [id number] 40mg Take 1 [facility] n 40 mg 1-26 tablet by ity of tablet 00:00: mouth at [place] [address] bedtime. Medical Branch carvediloL 2022-0 Yes [id number] 3.125mg Take 1 [facility] 3.125 mg 1-26 tablet by ity of tablet 00:00: mouth in [place] the Medical morning Branch and 1 tablet in the evening. Take with meals. clopidogreL 2022-0 Yes [id number] 75mg Take 1 [facility] 75 mg 1-26 tablet by ity of tablet 00:00: mouth in [place] 00 the Medical morning. Branch furosemide 2022-0 Yes [id number] 40mg Take 1 [facility] 40 mg 1-26 tablet by ity of tablet 00:00: mouth in [place] 00 the Medical morning. Branch lisinopriL 2022-0 Yes [id number] 5mg Take 1 [facility] nivers 5 mg tablet 1-26 tablet by ity of 00:00: mouth in [place] 00 the Medical morning. Branch aspirin 81 2022-0 Yes [id number] 1{capsu Take 1 [facility] mg Cap 12-21 le} capsule by ity of 00:00: mouth [place] 00 daily. Medical Branch atorvastati 2022- No [id number] 40mg Take 1 [facility] n 40 mg 12-21 tablet by ity of tablet 00:00: 00:00 mouth at [place] 00 :00 bedtime. Medical Branch carvediloL 2022- No [id number] 3.125mg Take 1 [facility] 3.125 mg 12-21 tablet by ity o f tablet 00:00: 00:00 mouth in [place] 00 :00 the Medical morning Branch and 1 tablet in the evening. Take with meals. clopidogreL 2022-2022- No [id number] 75mg Take 1 [facility] 75 mg 12-21 tablet by ity of tablet 00:00: 00:00 mouth in [place] 00 :00 the Medical morning. Branch lisinopriL 2022- No [id number] 5mg Take 1 [facility] 5 mg tablet 12-21 tablet by it y of 00:00: 00:00 mouth in [place] 00 :00 the Medical morning. Branch aspirin 81 2022- No [id number] 1{capsu Take 1 [facility] mg Cap 12-21 le} capsule by ity of 00:00: 00:00 mouth [place] 00 :00 daily. Medical Branch benzonatate 2022- No [id number] 200mg Take 1 [facility] 200 mg 12-21 capsule by ity of capsule 00:00: 00:00 mouth 3 [place] 00 :00 (three) Medical times Branch daily as needed for Cough. atorvastati 2022- No [id number] 40mg Take 1 [facility] n 40 mg 12-21 tablet by ity of tablet 00:00: 00:00 mouth at [place] 00 :00 bedtime. Medical Branch carvediloL 2022- No [id number] 3.125mg Take 1 [facility] 3.125 mg 12-21 tablet by ity o f tablet 00:00: 00:00 mouth in [place] 00 :00 the Medical morning Branch and 1 tablet in the evening. Take with meals. clopidogreL 2022- No [id number] 75mg Take 1 [facility] 75 mg 1-26 02- tablet by ity of tablet 00:00: 00:00 mouth in [place] 00 :00 the Medical morning. Branch lisinopriL 2022-2022- No [id number] 5mg Take 1 [facility] 5 mg tablet 12-21 tablet by it y of 00:00: 00:00 mouth in [place] 00 :00 the Medical morning. Branch aspirin 81 2022- No [id number] 1{capsu Take 1 [facility] mg Cap 12-21 le} capsule by ity of 00:00: 00:00 mouth [place] 00 :00 daily. Medical Branch benzonatate 2022-2022- No [id number] 200mg Take 1 [facility] 200 mg 12-21 capsule by ity of capsule 00:00: 00:00 mouth 3 [place] 00 :00 (three) Medical times Branch daily as needed for Cough. atorvastati 2022-2022- No [id number] 40mg Take 1 [facility] n 40 mg 12-21 tablet by ity of tablet 00:00: 00:00 mouth at [place] 00 :00 bedtime. Medical Branch carvediloL 2022-2022- No [id number] 3.125mg Take 1 [facility] 3.125 mg 12-21 tablet by ity o f tablet 00:00: 00:00 mouth in [place] 00 :00 the Medical morning Branch and 1 tablet in the evening. Take with meals. clopidogreL 2022-2022- No [id number] 75mg Take 1 [facility] 75 mg 12-21- tablet by ity of tablet 00:00: 00:00 mouth in [place] 00 :00 the Medical morning. Branch lisinopriL 2022- No [id number] 5mg Take 1 [facility] 5 mg tablet 12-21 tablet by it y of 00:00: 00:00 mouth in [place] 00 :00 the Medical morning. Branch aspirin 81 2022- No [id number] 1{capsu Take 1 [facility] mg Cap 12-21 le} capsule by ity of 00:00: 00:00 mouth [place] 00 :00 daily. Medical Branch benzonatate 2022-0 2022- No [id number] 200mg Take 1 [facility] 200 mg 12-21- capsule by ity of capsule 00:00: 00:00 mouth 3 [place] 00 :00 (three) Medical times Branch daily as needed for Cough. atorvastati 2022- No [id number] 40mg Take 1 [facility] n 40 mg 12-21 tablet by ity of tablet 00:00: 00:00 mouth at [place] 00 :00 bedtime. Medical Branch carvediloL 2022- No [id number] 3.125mg Take 1 [facility] 3.125 mg 12-21 tablet by ity o f tablet 00:00: 00:00 mouth in [place] 00 :00 the Medical morning Branch and 1 tablet in the evening. Take with meals. clopidogreL 2022-2022- No [id number] 75mg Take 1 [facility] 75 mg 12-21 tablet by ity of tablet 00:00: 00:00 mouth in [place] 00 :00 the Medical morning. Branch lisinopriL 2022- No [id number] 5mg Take 1 [facility] 5 mg tablet 12-21 tablet by it y of 00:00: 00:00 mouth in [place] 00 :00 the Medical morning. Branch aspirin 81 2022- No [id number] 1{capsu Take 1 [facility] mg Cap 12-21 le} capsule by ity of 00:00: 00:00 mouth [place] 00 :00 daily. Medical Branch benzonatate 2022- No [id number] 200mg Take 1 [facility] 200 mg 12-21 capsule by ity of capsule 00:00: 00:00 mouth 3 [place] 00 :00 (three) Medical times Branch daily as needed for Cough. atorvastati 2022- No [id number] 40mg Take 1 [facility] n 40 mg 12-21 tablet by ity of tablet 00:00: 00:00 mouth at [place] 00 :00 bedtime. Medical Branch carvediloL 2022- No [id number] 3.125mg Take 1 [facility] 3.125 mg 12-21 tablet by ity o f tablet 00:00: 00:00 mouth in [place] 00 :00 the Medical morning Branch and 1 tablet in the evening. Take with meals. clopidogreL 2022-2022- No [id number] 75mg Take 1 [facility] 75 mg 12-21 tablet by ity of tablet 00:00: 00:00 mouth in [place] 00 :00 the Medical morning. Branch lisinopriL 2022- No [id number] 5mg Take 1 [facility] 5 mg tablet 12-21 tablet by it y of 00:00: 00:00 mouth in [place] 00 :00 the Medical morning. Branch aspirin 81 2022- No [id number] 1{capsu Take 1 [facility] mg Cap 12-21 le} capsule by ity of 00:00: 00:00 mouth [place] 00 :00 daily. Medical Branch benzonatate 2022-2022- No [id number] 200mg Take 1 [facility] 200 mg 12-21 capsule by ity of capsule 00:00: 00:00 mouth 3 [place] 00 :00 (three) Medical times Branch daily as needed for Cough. furosemide 2022-2022- No [id number] 40mg Take 1 [facility] 40 mg 12-21 tablet by ity of tablet 00:00: 00:00 mouth in [place] 00 :00 the Medical morning. Branch furosemide 2022-2022- No [id number] 40mg Take 1 [facility] 40 mg 12-21- tablet by ity of tablet 00:00: 00:00 mouth in [place] 00 :00 the Medical morning. Branch furosemide 2022-2022- No [id number] 40mg Take 1 [facility] 40 mg 12-21- tablet by ity of tablet 00:00: 00:00 mouth in [place] 00 :00 the Medical morning. Branch furosemide 2022-2022- No [id number] 40mg Take 1 [facility] 40 mg 12-21- tablet by ity of tablet 00:00: 00:00 mouth in [place] 00 :00 the Medical morning. Branch furosemide 2022-2022- No [id number] 40mg Take 1 [facility] 40 mg -21 01-21 tablet by ity of tablet 00:00: 00:00 mouth in [place] 00 :00 the Medical morning. Branch furosemide 2022-2022- No [id number] 40mg Take 1 [facility] 40 mg 12-21-21 tablet by ity of tablet 00:00: 00:00 mouth in [place] 00 :00 the Medical morning. Branch azithromyci 2022- No [id number] 250mg Take 1 [facility] n 250 mg 12-21 tablet by ity o f tablet 00:00: 05:59 mouth in [place] 00 :00 the Medical morning Branch for 6 days. Take 500 mg day 1, then 250 mg days 2 to 5. azithromyci 2022- No [id number] 250mg Take 1 [facility] n 250 mg 12-21 tablet by ity o f tablet 00:00: 05:59 mouth in [place] 00 :00 the Medical morning Branch for 6 days. Take 500 mg day 1, then 250 mg days 2 to 5. azithromyci 2022- No [id number] 250mg Take 1 [facility] n 250 mg 12-21 tablet by ity o f tablet 00:00: 05:59 mouth in [place] 00 :00 the Medical morning Branch for 6 days. Take 500 mg day 1, then 250 mg days 2 to 5. TYLENOL-COD Yes 1{tbl} Take 1 Un [place] EINE #3 9-11 tablet by ity of 300-30 mg 00:00: mouth [place] tablet 00 every 4 Medical (four) Branch hours as needed for Pain (scale 4-6). IBUPROFEN Yes 400mg Take 1 Unive rs 400 mg -11 tablet by ity of tablet 00:00: mouth [place] 00 every 6 Medical (six) Branch hours as needed for Pain (scale 1-3). TYLENOL-COD 2022- No 1{tbl} Take 1 U nivers EINE #3 08-06 tablet by ity of 300-30 mg 00:00: 00:00 mouth [place] tablet 00 :00 every 4 Medical (four) Branch hours as needed for Pain (scale 4-6). IBUPROFEN 2022- No 400mg Take 1 Univ ers 400 mg 08-06 tablet by ity of tablet 00:00: 00:00 mouth [place] 00 :00 every 6 Medical (six) Branch hours as needed for Pain (scale 1-3). TYLENOL-COD 2022- No 1{tbl} Take 1 U nivers EINE #3 08-06 tablet by ity of 300-30 mg 00:00: 00:00 mouth [place] tablet 00 :00 every 4 Medical (four) Branch hours as needed for Pain (scale 4-6). IBUPROFEN No 400mg Take 1 Univ ers 400 mg 08-06 tablet by ity of tablet 00:00: 00:00 mouth [place] 00 :00 every 6 Medical (six) Branch hours as needed for Pain (scale 1-3). TYLENOL-COD 2022- No 1{tbl} Take 1 U niveduardo EINE #3 08-06 tablet by ity of 300-30 mg 00:00: 00:00 mouth [place] tablet 00 :00 every 4 Medical (four) Branch hours as needed for Pain (scale 4-6). IBUPROFEN No 400mg Take 1 Univ ers 400 mg 08-06 tablet by ity of tablet 00:00: 00:00 mouth [place] 00 :00 every 6 Medical (six) Branch hours as needed for Pain (scale 1-3). Vital Signs Vital Name Observation Time Observation Value Comments Source Systolic blood 2023-07-16 19:38:00 118 mm[Hg] [facility]ity [facility] Diastolic blood 2023-07-16 19:38:00 64 [facility]Hg[facility]-07-16 19:38:00 74 /min [facility] Respiratory rate 2023-07-16 19:38:00 19 /min [facility] 2023-07-16 19:38:00 186.7 cm [facility] Body weight 2023-07-16 19:38:00 95.437 kg [facility] BMI 2023-07-16 19:38:00 27.38 kg/m2 [facility] Oxygen saturation in 2023-07-16 19:38:00 95 /min [facility] Arterial blood by [facility] Pulse oximetry Branch Systolic blood 2023-07-06 21:55:00 122 mm[Hg] Univer sity [facility] Diastolic blood 2023-07-06 21:55:00 78 mm[Hg] [facility] 2023-07-06 21:55:00 78 /min [facility] Body temperature 2023-07-06 21:55:00 36.11 [place] [facility] [place] [facility] Respiratory rate 2023-07-06 21:55:00 22 /min [facility] ersity [facility] [place] [facility] Oxygen saturation in 2023-07-06 21:55:00 94 /min [facility] of Arterial blood by [facility] lis Pulse oximetry Branch Body height 2023-07-06 16:14:00 185.4 cm [facility] [place] [facility] Body weight 2023-07-06 16:14:00 95.3 kg [facility] [place] [facility] BMI 2023-07-06 16:14:00 27.72 kg/m2 [facility] [place] [facility] Systolic blood 2023-07-06 20:45:00 136 mm[Hg] Univer sity of pressure [place] [facility] Diastolic blood 2023-07-06 20:45:00 78 mm[Hg] Unive rsity of pressure [place] [facility] Heart rate 2023-07-06 20:45:00 76 /min [facility] [place] [facility] Respiratory rate 2023-07-06 20:45:00 24 /min [facility] ersity [facility] [place] [facility] Oxygen saturation in 2023-07-06 20:45:00 95 /min [facility] of Arterial blood by [facility] lis Pulse oximetry Branch Body temperature 2023-07-06 20:37:00 35.83 [place] [facility] [place] [facility] Body height 2023-07-06 16:14:00 185.4 cm [facility] [place] [facility] Body weight 2023-07-06 16:14:00 95.3 kg [facility] [place] [facility] BMI 2023-07-06 16:14:00 27.72 kg/m2 [facility] [place] [facility] Systolic blood 2023-06-01 15:25:00 140 mm[Hg] Univer sity of pressure [place] [facility] Diastolic blood 2023-06-01 15:25:00 87 mm[Hg] Unive rsity of pressure [place] [facility] Heart rate 2023-06-01 15:25:00 64 /min [facility] [place] [facility] Oxygen saturation in 2023-06-01 15:25:00 96 /min [facility] of Arterial blood by [facility] lis Pulse oximetry Branch BMI 2023-06-01 15:22:00 29.03 kg/m2 Universi ty of [facility] Body temperature 2023-06-01 15:22:00 36.83 [place] [facility] ersity of [facility] Respiratory rate 2023-06-01 15:22:00 18 /min Univ ersity of [facility] Body height 2023-06-01 15:22:00 184.2 cm [facility] [place] [facility] [place] Body weight 2023-06-01 15:22:00 98.431 kg Universi ty of [facility] Systolic blood 2023-05-21 19:25:00 116 mm[Hg] Univer sity of pressure [facility] Diastolic blood 2023-05-21 19:25:00 78 mm[Hg] Unive rsity of pressure [facility] Heart rate 2023-05-21 19:25:00 51 /min Universi ty of [facility] Body temperature 2023-05-21 19:25:00 36.28 [place] [facility] ersity of [facility] Body height 2023-05-21 19:25:00 186.7 cm [facility] [place] [facility] [place] Body weight 2023-05-21 19:25:00 95.255 kg [facility] [place] [facility] [place] BMI 2023-05-21 19:25:00 27.33 kg/m2 [facility]i ty of [facility] Oxygen saturation in 2023-05-21 19:25:00 97 /min [facility] Arterial blood by [facility] Pulse oximetry Branch Systolic blood 2023-05-10 13:08:00 117 mm[Hg] Univer sity of pressure [facility] Diastolic blood 2023-05-10 13:08:00 70 mm[Hg] Unive rsity of pressure [facility] Heart rate 2023-05-10 13:08:00 68 /min Universi ty of [facility] Body temperature 2023-05-10 13:08:00 36.67 [place] [facility] ers[facility] of [facility] Respiratory rate 2023-05-10 13:08:00 18 /min Univ ersity of [facility] Body weight 2023-05-10 13:08:00 91.218 kg [facility] [place] [facility] [place] BMI 2023-05-10 13:08:00 26.17 kg/m2 Universi ty of [facility] Oxygen saturation in 2023-05-10 13:08:00 97 /min University of Arterial blood by [facility] lis Pulse oximetry Branch Heart rate 2023-04-18 18:05:00 81 /min [facility] [place] [facility] Body temperature 2023-04-18 18:05:00 36.17 [place] [facility] [place] [facility] Respiratory rate 2023-04-18 18:05:00 18 /min Univ ersity [facility] [place] [facility] Body height 2023-04-18 18:05:00 186.7 cm [facility] [place] [facility] Body weight 2023-04-18 18:05:00 97.886 kg [facility] [place] [facility] BMI 2023-04-18 18:05:00 28.09 kg/m2 [facility] [place] [facility] Oxygen saturation in 2023-04-18 18:05:00 96 /min [facility] of Arterial blood by [facility] lis Pulse oximetry Branch Systolic blood 2023-04-18 18:05:00 127 mm[Hg] Univer sity of pressure [place] [facility] Diastolic blood 2023-04-18 18:05:00 76 mm[Hg] Unive rsity of pressure [place] [facility] Systolic blood 2023-04-12 13:38:00 127 mm[Hg] Univer sity of pressure [place] [facility] Diastolic blood 2023-04-12 13:38:00 83 mm[Hg] Unive rsity of pressure [place] [facility] Heart rate 2023-04-12 13:34:00 85 /min [facility] [place] [facility] Body temperature 2023-04-12 13:34:00 36.28 [place] [facility] [place] [facility] Respiratory rate 2023-04-12 13:34:00 18 /min Univ ersity of [place] [facility] Body height 2023-04-12 13:34:00 186.7 cm [facility] [place] [facility] Body weight 2023-04-12 13:34:00 96.117 kg [facility] [place] [facility] BMI 2023-04-12 13:34:00 27.58 kg/m2 [facility] [place] [facility] Oxygen saturation in 2023-04-12 13:34:00 96 /min [facility] Arterial blood by [place] [facility] Pulse oximetry Branch Systolic blood 2023-01-24 17:37:00 117 mm[Hg] Univer sity of pressure [place] [facility] Diastolic blood 2023-01-24 17:37:00 65 mm[Hg] Unive rsity of pressure [place] [facility] Heart rate 2023-01-24 17:37:00 40 /min [facility] [place] [facility] Body temperature 2023-01-24 17:37:00 36.33 [place] [facility] [place] [facility] Respiratory rate 2023-01-24 17:37:00 18 /min Univ ersity [facility] [place] [facility] Oxygen saturation in 2023-01-24 17:37:00 93 /min [facility] of Arterial blood by [place] [employer] lis Pulse oximetry Branch Body height 2023-01-20 00:00:00 185.4 cm [facility] [place] [facility] Body weight 2023-01-20 00:00:00 108.863 kg [facility] [place] [facility] BMI 2023-01-20 00:00:00 31.66 kg/m2 [facility] [place] [facility] Systolic blood 2023-01-22 15:41:00 121 mm[Hg] Univer sity of pressure [place] [facility] Diastolic blood 2023-01-22 15:41:00 82 mm[Hg] Unive rsity of pressure [place] [facility] Heart rate 2023-01-22 15:41:00 86 /min [facility] [place] [facility] Body temperature 2023-01-22 15:41:00 35.89 [place] [facility] [place] [facility] Respiratory rate 2023-01-22 15:41:00 18 /min Univ ersity of [place] [facility] Oxygen saturation in 2023-01-22 15:41:00 99 /min [facility] of Arterial blood by [place] [employer] lis Pulse oximetry Branch Body height 2023-01-20 00:00:00 185.4 cm [facility] [place] [facility] Body weight 2023-01-20 00:00:00 108.863 kg [facility] [place] [facility] BMI 2023-01-20 00:00:00 31.66 kg/m2 [facility] [place] [facility] Systolic blood 2023-01-16 20:57:00 130 mm[Hg] Univer sity of pressure [place] [facility] Diastolic blood 2023-01-16 20:57:00 89 mm[Hg] Unive rsity of pressure [place] [facility] Heart rate 2023-01-16 20:57:00 92 /min [facility] [place] [facility] Body temperature 2023-01-16 20:57:00 35.94 [place] [facility] [place] [facility] Respiratory rate 2023-01-16 20:57:00 20 /min Univ ersity [facility] [place] [facility] Body height 2023-01-16 20:57:00 186.7 cm [facility] [place] [facility] Body weight 2023-01-16 20:57:00 102.876 kg [facility] [place] [facility] BMI 2023-01-16 20:57:00 29.52 kg/m2 [facility] [place] [facility] Oxygen saturation in 2023-01-16 20:57:00 97 /min [facility] of Arterial blood by [place] [employer] lis Pulse oximetry Branch Systolic blood 2023-01-09 20:08:00 104 mm[Hg] Univer sity of pressure [place] [facility] Diastolic blood 2023-01-09 20:08:00 70 mm[Hg] Unive rsity of pressure [place] [facility] Heart rate 2023-01-09 20:08:00 94 /min [facility] [place] [facility] Body temperature 2023-01-09 20:08:00 37 [place] [facility] [place] [facility] Respiratory rate 2023-01-09 20:08:00 16 /min Univ ersity [facility] [place] [facility] Body height 2023-01-09 20:08:00 186.7 cm [facility] [place] [facility] Body weight 2023-01-09 20:08:00 99.655 kg [facility] [place] [facility] BMI 2023-01-09 20:08:00 28.59 kg/m2 [facility] [place] [facility] Oxygen saturation in 2023-01-09 20:08:00 97 /min [facility] of Arterial blood by [place] [employer] lis Pulse oximetry Branch Systolic blood 2023-01-05 21:00:00 110 mm[Hg] Univer sity of pressure [place] [facility] Diastolic blood 2023-01-05 21:00:00 79 mm[Hg] Unive rsity of pressure [place] [facility] Heart rate 2023-01-05 21:00:00 69 /min [facility] [place] [facility] Respiratory rate 2023-01-05 21:00:00 12 /min Univ ersity [facility] [place] [facility] Oxygen saturation in 2023-01-05 21:00:00 95 /min University of Arterial blood by [facility] lis Pulse oximetry Branch Body temperature 2023-01-05 17:11:00 36.5 [place] [facility] Body height 2023-01-05 17:11:00 185.4 cm [facility] [place] [facility] [place] Body weight 2023-01-05 17:11:[address] [facility] BMI 2023-01-05 17:11:00 32.98 kg/m2 [facility] Systolic blood 2022-12-21 16:46:00 116 mm[Hg] Univer [facility] Diastolic blood 2022-12-21 16:46:00 85 mm[Hg] [facility] rate 2022-12-21 16:46:00 93 /min [facility] Body height 2022-12-21 16:46:[address] [facility] Body weight 2022-12-21 16:46:[address] [facility] BMI 2022-12-21 16:46:00 28.89 kg/m2 [facility] Oxygen saturation in 2022-12-21 16:46:00 97 /min [facility] Arterial blood by [facility] Pulse oximetry Branch Procedures Procedure Date / Time Performing Clinician Source Performed INGUINAL HERNIORRHAPHY 2023-07-06 17:02:00 Annita Grijalva [facility] DAY SURGERY - ADC 2023-07-06 05:01:00 Doctor Yamilet, [facility] PATIENT QUESTIONNAIRE 2023-06-01 05:01:00 Doctor Unaabdoulaye, [facility] CT ABDOMEN PELVIS WO 2023-05-21 17:41:51 Femi Disla [facility] CONTRAST [facility] REFERRAL- REQUEST/RESPONSE 2023-05-10 05:01:00 Doctor Yamilet , [facility] PATIENT FINANCIAL 2023-04-12 13:27:39 [facility] PHYSICIAN CERTIFICATION 2023-03-22 05:01:00 Doctor [facility]ilet, [facility] STATEMENT [facility] EXTERNAL PROVIDER RECORDS 2023-02-05 05:01:00 Doctor Unassigned, [facility] Name [facility] [place] MAGNESIUM 2023-01-24 10:06:00 Jairo [facility] BASIC METABOLIC PANEL (NA, 2023-01-24 10:06:00 Esther Spain [facility] K, CL, CO2, GLUCOSE, BUN, Medica l Branch CREATININE, CA) HB ECG ROUTINE & RHYTHM 2023-01-23 13:47:06 Denys Waldrop [facility] MAGNESIUM 2023-01-23 09:19:00 Jairo [facility] BASIC METABOLIC PANEL (NA, 2023-01-23 09:19:00 Esther [facility], CL, CO2, GLUCOSE, BUN, Medica l Branch CREATININE, CA) MAGNESIUM 2023-01-23 09:19:00 Spain, [facility] BASIC METABOLIC PANEL (NA, 2023-01-23 09:19:00 Esther Spain [facility] K, CL, CO2, GLUCOSE, BUN, Medica l Branch CREATININE, CA) REFERRAL- REQUEST/RESPONSE 2023-01-23 06:01:00 Doctor Unassigned , [facility] Name [facility] REFERRAL- REQUEST/RESPONSE 2023-01-23 06:01:00 Doctor Unassigned , [facility] ACTIVATED PARTIAL THRMPLAS 2023-01-22 19:38:00 Christopher Ortiz [facility] ACTIVATED PARTIAL THRMPLAS 2023-01-22 19:38:00 Christopher Ortiz [facility] ACTIVATED PARTIAL THRMPLAS 2023-01-22 17:04:00 Christopher Ortiz [facility] ACTIVATED PARTIAL THRMPLAS 2023-01-22 17:04:00 Christopher Ortiz U [facility] CARDIAC CATHETERIZATION 2023-01-22 14:48:33 An [facility] CARDIAC CATHETERIZATION 2023-01-22 14:48:33 An [facility] CARDIAC CATHETERIZATION 2023-01-22 14:48:33 An [facility] ersity [facility] CARDIAC CATHETERIZATION 2023-01-22 14:48:33 An [facility] ersity of [facility] CARDIAC CATHETERIZATION 2023-01-22 14:48:33 An [facility] ersity of [facility] CARDIAC CATHETERIZATION 2023-01-22 14:48:33 An [facility] ersity of [facility] CARDIAC CATHETERIZATION 2023-01-22 14:48:33 An [facility] ersity of [facility] CARDIAC CATHETERIZATION 2023-01-22 14:48:33 [facility] POCT ACT LOW RANGE 2023-01-22 14:47:00 [facility] POCT ACT LOW RANGE 2023-01-22 14:47:00 [facility] POCT ACT LOW RANGE 2023-01-22 14:27:00 [facility] POCT ACT LOW RANGE 2023-01-22 14:27:00 [facility] MAGNESIUM 2023-01-22 10:47:00 Esther Spain [facility] BASIC METABOLIC PANEL (NA, 2023-01-22 10:47:00 Esther Spain [facility] K, CL, CO2, GLUCOSE, BUN, Medica l Branch CREATININE, CA) CBC WITH DIFF 2023-01-22 10:47:00 [facility] PRO-BNP 2023-01-22 10:47:00 [facility] 2023-01-22 10:47:00 [facility]OLIC PANEL (NA, 2023-01-22 10:47:00 Esther Spain [facility] K, CL, CO2, GLUCOSE, BUN, Medica l Branch CREATININE, CA) CBC WITH DIFF 2023-01-22 10:47:00 Spain, [facility] N-TERMINAL PRO-BNP 2023-01-22 10:47:00 Esther Spain [facility] POCT GLUCOSE (AUTOMATED) 2023-01-21 13:41:00 [facility]SE (AUTOMATED) 2023-01-21 13:41:00 Frank Boyer [facility] URINE DRUG (IMMUNOASSAY) - 2023-01-21 08:41:00 Negin Spainersarcadio [facility] COMPREHENSIVE DRUG SCREEN Medica l Branch URINE DRUG (IMMUNOASSAY) - 2023-01-21 08:41:00 Negin Spain [facility] COMPREHENSIVE DRUG SCREEN Medica l Branch MAGNESIUM 2023-01-21 08:39:00 Jairo [facility] BASIC METABOLIC PANEL (NA, 2023-01-21 08:39:00 Esthre [place] [facility] [place] K, CL, CO2, GLUCOSE, BUN, Medica l Branch CREATININE, CA) SERUM DRUG (IMMUNOASSAY) - 2023-01-21 08:39:00 Negin [place] [facility] [place] COMPREHENSIVE DRUG SCREEN Medica l Branch MAGNESIUM 2023-01-21 08:39:00 [facility] BASIC MET[facility]OLIC PANEL (NA, 2023-01-21 08:39:00 Esther Spain [facility] [place] K, CL, CO2, GLUCOSE, BUN, Medica l Branch CREATININE, CA) SERUM DRUG (IMMUNOASSAY) - 2023-01-21 08:39:00 Negin Spain [facility] COMPREHENSIVE DRUG SCREEN Medica l Branch MAGNESIUM 2023-01-20 11:22:[address] [facility] BASIC METABOLIC PANEL (NA, 2023-01-20 11:22:00 Christopher Ortiz niversity [facility] K, CL, CO2, GLUCOSE, BUN, [facility] Med[facility] Branch CREATININE, CA) CBC WITH DIFF 2023-01-20 11:22:00 Angel [facility] MAGNESIUM 2023-01-20 11:22:[address] [facility] BASIC METABOLIC PANEL (NA, 2023-01-20 11:22:00 [facility] K, CL, CO2, GLUCOSE, BUN, [facility] CREATININE, CA) CBC WITH DIFF 2023-01-20 11:22:[address] [facility] TRANSTHORACIC ECHO (TTE) 2023-01-19 20:22:12 Christopher Ortiz [facility] COMPLETE W/ CONTRAST [facility] TRANSTHORACIC ECHO (TTE) 2023-01-19 20:22:12 Christopher Ortiz [facility] COMPLETE W/ CONTRAST [facility] BASIC METABOLIC PANEL (NA, 2023-01-19 18:40:00 Christopher Ortiz [facility] K, CL, CO2, GLUCOSE, BUN, [facility] CREATININE, CA) LIPID PANEL ([id number])(TOTAL 2023-01-19 18:40:00 Christopher Ortiz [facility] CHOLESTEROL, [facility] TRIGLYCERIDES, HDL) CBC WITH DIFF 2023-01-19 18:40:[address] [facility] GLYCOSYLATED HEMOGLOBIN 2023-01-19 18:40:00 Christopher Ortiz [facility] (A1C) [facility] PROTHROMBIN TIME / INR 2023-01-19 18:40:00 Christopher Ortiz [facility] N-TERMINAL PRO-BNP 2023-01-19 18:40:00 Christopher Ortiz [facility] BASIC METABOLIC PANEL (NA, 2023-01-19 18:40:00 Christopher Ortiz [facility] K, CL, CO2, GLUCOSE, BUN, [facility] CREATININE, CA) LIPID PANEL (41529)(TOTAL 2023-01-19 18:40:00 Christopher Ortiz [facility] CHOLESTEROL, [facility] TRIGLYCERIDES, HDL) CBC WITH DIFF 2023-01-19 18:40:00 Angel [facility] GLYCOSYLATED HEMOGLOBIN 2023-01-19 18:40:00 Angel [facility] (A1C) [facility] PROTHROMBIN TIME / INR 2023-01-19 18:40:00 [facility] N-TERMINAL PRO-BNP 2023-01-19 18:40:00 Angel [facility] XR CHEST 1 VW 2023-01-19 17:47:00 Angel [facility] XR CHEST 1 VW 2023-01-19 17:47:00 Angel [facility] MAGNESIUM 2023-01-05 18:12:00 Sayra Fox [facility] TROPONIN I 2023-01-05 18:12:00 Sayra Fox [facility] COMP. METABOLIC PANEL 2023-01-05 18:12:00 Sayra Fox [facility] ([id number]) [facility] CBC WITH DIFF 2023-01-05 18:12:00 Sayra Fox [facility] N-TERMINAL PRO-BNP 2023-01-05 18:12:00 Sayra Fox [facility] CONSENT/REFUSAL FOR 2023-01-05 17:02:24 Doctor Yamilet, [facility] DIAGNOSIS AND TREATMENT [facility] [place] REFERRAL- REQUEST/RESPONSE 2022-12-29 06:01:00 Doctor Yamilet , [facility] ASSIGNMENT OF BENEFITS 2022-12-21 16:16:06 Doctor Unassfaizan, [facility] Name [facility] [place] Encounters Start End Encounter Admission Attending Care Care Encounter Source Date/Time Date/Time Type Type Clinicians Facility Department ID 2023-06-08 Outpatient BECKI CORTÉS [facility] CC A [id number] Univers 11:26:19 BECKI CORTÉS [facility] 2023-01-16 Inpatient Josee BOYER [facility] [id number] Univers 16:15:19 FRANK [facility] 2023-10-01 2023-10-01 [id number] Univers 14:00:00 14:00:00 arcadio CALLES [facility] 2023-07-23 2023-07-23 Outpatient R ANNITA GRIJALVA [facility] [id number] Univers 08:00:00 08:00:00 RUDI ANNITA [facility] 2023-07-20 2023-07-20 Outpatient R NAIF [facility] [id number] Univers 10:30:00 10:30:00 FEMI [facility] 2023-07-19 2023-07-19 [facility] [id number] Univers 11:00:00 11:00:00 FEMI [facility] 2023-07-18 2023-07-18 Outpatient R BECKI CORTÉS [facility] [id number] Univers 10:00:00 10:00:00 BECKI CORTÉS [facility] 2023-07-17 2023-07-17 Telephone NADYA Cortés 1.2.840.114 [id number] Univers 00:00:00 00:00:00 [facility] 350.1.13.10 ity of [facility] [place] [phone] [address] 2023-07-16 2023-07-16 Outpatient R DILIP LOUIE [facility] [id number] Univers 14:30:00 15:10:[address] [facility] 2023-07-16 2023-07-16 Office Dilip Louie [facility] 1.2.840.114 [id number] Univers 14:30:00 15:10:12 Visit N NARENDRA 350.1.13.10 i ty of [place] [id number] [address] 2023-07-16 2023-07-16 Telephone RASHEEDA Coréts 1.2.840.114 [id number] Univers 00:00:00 00:00:00 Leyda GOMEZ 350.1.13.10 ity of [facility] 4.2.7.2.686 [place] [id number] [facility] 840 Branch 2023-07-06 2023-07-06 Outpatient R RUDI [facility] RAMON [id number] Univers 10:16:00 17:15:[address] [facility] 2023-07-06 2023-07-06 Hospital [facility] 1.2.840.114 [id number] Univers 10:16:00 17:15:00 Encounter [facility] 350.1.13.10 ity [place] SURGICAL [id number] [facility] 071 Branch 2023-07-06 2023-07-06 Surgery [facility] 1.2.840.114 [id number] Univers 12:35:00 15:47:00 [facility] 350.1.13.10 ity of [place] SURGICAL [id number] [facility] 020 Branch 2023-07-06 2023-07-06 Orders Doctor ROBYN 1.2.840.114 [id number] Univers 00:00:00 00:00:00 Only Unassigned, JASON 350.1.13.10 ity of [place] [facility] 4.2.7.2.686 [place] [id number] [facility] 009 Branch 2023-06-25 2023-06-25 Telephone [facility] 1.2.555.881 [id number] Univers 00:00:00 00:00:00 [facility] 350.1.13.10 ity [place] [id number] Va dical [facility] 188 Branch [facility] 2023-06-19 2023-06-19 Outpatient R NAIF [facility] [id number] Univers 11:30:00 11:30:00 FEMI ity of [facility] 2023-06-08 2023-06-08 Telephone [facility] [id number] [id number] Univers 00:00:00 00:00:00 Qiangjun [place] 350.1.13.10 ity of [place] [id number] Va dical NAL 059 [facility] 2023-06-07 2023-06-07 Outpatient R [facility] [id number] Univers 10:53:23 23:59:00 DEBBI ity o f [facility] 2023-06-06 2023-06-06 Outpatient R RUDI [facility] [id number] Univers 13:15:00 14:14:[address] [facility] 2023-06-04 2023-06-04 Telephone NADYA Cortés 1.2.840.114 [id number] Univers 00:00:00 00:00:00 [facility] 350.1.13.10 ity of [facility] [place] [id number] [facility] 059 [place] 2023-06-01 2023-06-01 Office [facility] 1.2.840.114 [id number] Univers 10:15:00 11:00:00 Visit Margot MARKTANISHA 350.1.13.10 ity of [place] [id number] [facility] 188 [facility] 2023-06-01 2023-06-01 Outpatient R [facility] [id number] Univers 10:15:00 10:15:00 MARGOT ervin o f [facility] 2023-06-01 2023-06-01 Orders Doctor ROBYN 1.2.840.114 [id number] Univers 00:00:00 00:00:00 Only Unassigned, JASON 350.1.13.10 ity of [place] [facility] 4.2.7.2.686 [place] [id number] [facility] 009 [place] 2023-05-24 2023-05-24 Telephone KATIE Li 1.2.840.114 [id number] Univers 00:00:00 00:00:00 Daisha DURAN 350.1.13.10 i ty of [place]2.[place]2.[place] [id number] [facility] 086 Branch 2023-05-21 2023-05-21 Hospital [facility] 1.2.840.114 [id number] Univers 12:25:47 23:59:00 Encounter Femi MACKEY 350.1.13.10 ity of [facility] 4.2.7.2.[place] [id number] [facility] 801 Branch 2023-05-21 2023-05-21 Outpatient R [facility] [id number] Univers 14:20:00 15:36:30 QIARAFIQ ity o f [facility] 2023-05-21 2023-05-21 Office [facility] 1.2.840.114 [id number] Univers 14:20:00 15:36:30 Visit Debbi FLORESTANISHA 350.1.13.10 ity of [facility] 4.2.7.2.[place] [facility] [id number] Va dical NAL 059 [facility] 2023-05-14 2023-05-14 Telephone [facility] [id number] Univers 00:00:00 00:00:00 Femi HEALTH 350.1.13.10 it y of [facility] 4.2.7.2.686 [place] YINA?BLEA [id number] [address] OFFICE [facility] 2023-05-10 2023-05-10 Outpatient R [facility] [id number] Univers 08:30:00 09:10:39 FEMI ity of [facility] 2023-05-10 2023-05-10 Office [facility] 1.2.840.114 [id number] Univers 08:30:00 09:10:39 Visit Femi HEALTH 350.1.13.10 it y of [facility] 4.2.7.2.686 [place] YINA?BLEA [phone] [address] OFFICE [facility] 2023-05-10 2023-05-10 Orders Doctor CARLSON 1.2.840.114 [id number] Univers 00:00:00 00:00:00 Only Unassigned, JASON 350.1.13.10 ity of [place] [facility] 4.2.7.2.686 [place] [phone] [facility] 009 [place] 2023-05-03 2023-05-03 Telephone [facility] 1.2.840.114 [id number] Univers 00:00:00 00:00:00 Margot MACKEY 350.1.13.10 ity of [place]2.[place] ESSIO [id number] [facility] 188 [facility] 2023-05-03 2023-05-03 Telephone [facility] 1.2.628.906 [id number] Univers 00:00:00 00:00:00 Femi HEALTH 350.1.13.10 it y of [place] 4.2.7.2.686 [place]on as YINA?BLEA [phone] [facility] 044 [place] MEDICAL OFFICE BUILDING 2023-04-25 2023-04-25 Outpatient R BECKI CORTÉS [facility] [id number] Univers 13:30:00 13:30:[address] [facility] 2023-04-25 2023-04-25 Telephone KATIE Li 1.2.840.114 [id number] Univers 00:00:00 00:00:00 Daisha JAMESY 350.1.13.10 i ty of [place] 4[place]2.7.2.[place] [id number] [facility] 086 [place] 2023-04-18 2023-04-18 Outpatient R BECKI CORTÉS [facility] [id number] Univers 13:00:00 13:46:[address] [facility] 2023-04-18 2023-04-18 Office NADYA Cortés 1.2.840.114 [id number] Univers 13:00:00 13:46:45 Visit Leyda Hernandez HEALTH 350.1.13.10 ity of [facility] 4.2.7.2.[place] [id number] [facility] 059 [place] 2023-04-122023-04-12 [employer], Ang - Db [facility] 1.2.840.1 [id number] Univers 10:15:00 10:30:00 Visit Femi Disla 350.1.13.10 ity of [facility] 4.2.7.2.686 [place] YINA?BLEA [id number] [facility] [address] [facility] 2023-04-12 2023-04-12 Outpatient R [facility] [id number] Univers 08:30:00 09:53:[address] [facility] 2023-04-12 2023-04-12 Office [facility] 1.2.840.114 [id number] Univers 08:30:00 09:53:58 Visit Femi HEALTH 350.1.13.10 it y of [facility] 4.2.7.2.686 [place] YINA?BLEA [id number] [facility] [address] [facility] 2023-04-12 2023-04-12 Orders Doctor CARLSON 1.2.840.114 [id number] Univers 00:00:00 00:00:00 Only Unassigned, JASON 350.1.13.10 ity of [place] [facility] 4.2.7.2.686 [place] as [id number] [address] 2023-04-05 2023-04-05 Outpatient [facility] [id number] Univers 09:30:00 09:30:[address] [facility] 2023-03-22 2023-03-22 Orders Doctor CARLSON 1.2.840.114 [id number] Univers 00:00:00 00:00:00 Only Unassigned, JASON 350.1.13.10 ity of [place] [facility] 4.2.7.2.686 [place] [id number] [address] 2023-02-16 2023-02-16 Out[facility] [id number] Univers 11:00:00 11:00:[address] [facility] 2023-02-05 2023-02-05 Orders Doctor ROBYN Schroeder.2.840.114 [id number] Univers 00:00:00 00:00:00 Only Unassigned, JASON 350.1.13.10 ity of [place] [facility] 4.2.7.2.686 [place] as [id number] [facility] 009 Branch 2023-02-02 2023-02-02 Telephone NADYA Cortés 1.2.840.114 [id number] Univers 00:00:00 00:00:00 [facility] 350.1.13.10 ity of [facility] 4.2.7.2.[place] [id number] [facility] 059 Branch 2023-01-25 2023-01-25 Transition KATIE Castro 1.2.840.114 [id number] Univers 00:00:00 00:00:00 of Care Shari Guerrero DURAN 350.1.13.10 it y of [place] 4.2.7.2.[place] [id number] [facility] 403 Branch 2023-01-19 2023-01-24 Inpatient R ADELINE [facility] [id number] Univers 10:31:00 15:38:00 WISSAM ity of [facility] 2023-01-19 2023-01-24 [facility] RASHEEDA Boyer 1.2.055.311 [id number] Univers 10:31:00 15:38:00 [facility] JASON 350.1.13.10 ity of [facility] 4.2.7.2.686 [place] [id number] [facility] 090 Branch 2023-01-24 2023-01-24 Telephone KATIE Li 1.2.840.114 [id number] Univers 00:00:00 00:00:00 Daisha JAMESY 350.1.13.10 i ty of [place].2.7.2.[place] [id number] [facility] 086 Branch 2023-01-22 2023-01-22 Surgery RASHEEDA Rucker 1.2.840.114 [id number] Univers 07:40:00 10:40:00 Karleneisai JASON 350.1.13.10 ity of [facility] 4.2.7.2.686 [place] [id number] [facility] 840 Branch 2023-01-19 2023-01-19 Outpatient R PIA AVENDANO [facility] [id number] Univers 00:00:00 00:00:00 ity of [facility] 2023-01-16 2023-01-16 Outpatient R JAIRO [facility] [id number] Univers 15:00:00 16:22:[address] [facility] 2023-01-16 2023-01-16 Office NADYA [place] 1.2.076.110 [id number] Univers 15:00:00 16:22:22 Visit Negin Y HEALTH 350.1.13.10 i ty of CLINICS 4.2.7.2.[place] [id number] [facility] 414 Branch 2023-01-16 2023-01-16 Telephone Pili HERNANDEZN 1.2.632.859 [id number] Univers 00:00:00 00:00:00 ROGER Moscoso 350.1.13.10 ity of Annabelle RODRIGUEZ [place].2.[place] [id number] [facility] 086 [address] 2023-01-11 2023-01-11 Telephone Pia Avendano [facility] 1.2.840.114 [id number] Univers 00:00:00 00:00:00 HEALTH 350.1.13.10 it y of [place].2.[place] AGUIRRE [id number] [facility] 188 [place] OFFICE BUILDING 2023-01-09 2023-01-09 Office Pia Avendano [facility] 1.2.840.114 [id number] Univers 14:15:00 14:30:00 Visit HEALTH 350.1.13.10 it y of [place]2.7.2.[place] AGUIR[place] [id number] [address] OFFICE BUILDING 2023-01-09 2023-01-09 Outpatient R PIA AVENDANO [facility] [id number] Univers 14:15:00 14:15:00 ity of [facility] 2023-01-05 2023-01-05 Emergency X RUDDY, [facility] ERT [id number] Univers 11:11:00 15:56:00 SAYRA [facility] 2023-01-05 2023-01-05 Emergency [facility] 1.2.840.114 [id number] Univers 11:11:00 15:56:00 Sayra MACKYE 350.1.13.10 ity of [facility] 4.2.7.2.686 [place] [facility] [id number] [place] 756244 [place] 2022-12-29 2022-12-29 Orders Doctor ROBYN 1.2.840.114 [id number] Univers 00:00:00 00:00:00 Only Unassigned, JASON 350.1.13.10 ity of [facility] 4.2.7.2.686 [place] as [phone] [address] 2022-12-21 2022-12-21 [facility] 1.2.840.114 [id number] Univers 10:30:00 12:45:25 Visit [facility] 350.1.13.10 it y of [place] 4.2.7.2.686 [place] as YINA?BLEA [phone] [address] MEDICAL OFFICE BUILDING 2022-12-21 2022-12-21 [facility] [id number] Univers 10:30:00 12:45:[address] [facility] 2022-12-21 2022-12-21 Orders Doctor ROBYN 1.2.840.114 [id number] Univers 00:00:00 00:00:00 Only Unassigned, JASON 350.1.13.10 ity of [facility] 4.2.7.2.686 [place] as [phone] [address] 2022-12-06 2022-12-06 Outpatient [facility] [id number] Ten 11:44:19 11:44:19 [id number] F Artem Results Test Description Test Time Test Comments Results Result Comments Source POCT ACT LOW RANGE 2023-01-22 18:02:15 Test Item Value Reference Range Interpretation Comme nts ACTLR (test code = [id number]) 299 See_Comment H [Automated message] The system which generated this result transmitted ref erence range: 89 - 169 Seconds. The reference range was not u sed to interpret this result as normal/abnormal. Lab Interpretation (test code Abnormal = 41612-1) [facility] ACT LOW [id number] 18:02:15 Test Item Value Reference Range Interpretation Comments ACTLR (test code = 299 See_Comment H [Automat ed message] [id number]) The system [employer] generated this result transmitted ref erence range: 89 - 169 Seconds. The reference range was not used to int erpret this result as normal/abnormal . Lab Interpretation (test Abnormal code = 99824-1) [facility] ACT LOW [id number] 18:02:15 Test Item Value Reference Range Interpretation Comments ACTLR (test code = 299 See_Comment H [Automat ed message] [id number]) The system [employer] generated this result transmitted ref erence range: 89 - 169 Seconds. The reference range was not used to int erpret this result as normal/abnormal . Lab Interpretation (test Abnormal code = 38458-5) [facility] ACT LOW [id number] 18:02:15 Test Item Value Reference Range Interpretation Comments ACTLR (test code = 299 See_Comment H [Automat ed message] 7199896398) The system [employer] generated this result transmitted ref erence range: 89 - 169 Seconds. The reference range was not used to int erpret this result as normal/abnormal . Lab Interpretation (test Abnormal code = 11979-8) [facility] GLUCOSE (AUTOMATED)2023-01-21 13:42:28 Test Item Value Reference Range Interpretation Comments POCT GLU (test code = 4038994642) 166 mg/dL 70-110 H Lab Interpretation (test code = Abnormal 01487-5) [facility] GLUCOSE (AUTOMATED)2023-01-21 13:42:28 Test Item Value Reference Range Interpretation Comments POCT GLU (test code = 2407447210) 166 mg/dL 70-110 H Lab Interpretation (test code = Abnormal 35763-9) [facility] METABOLIC PANEL (NA, K, CL, CO2, GLUCOSE, BUN, CREATININE, CA)2023-01-20 12:25:19 Test Item Value Reference Range Interpretation Comments NA (test code = 142 mmol/L 135-145 8114367653) K (test code = 3.7 mmol/L 3.5-5.0 Slight 7209454497) hemolysis CL (test code = 101 mmol/L 98-108 4553325615) CO2 TOTAL (test code 33 mmol/L 23-31 H = 0275862015) AGAP (test code = 8 2-16 1340717501) BUN (test code = 17 mg/dL 7-23 Slight 8893991624) hemolysis GLUCOSE (test code = 146 mg/dL 70-110 H 5278211524) CREATININE (test code 1.25 mg/dL 0.60-1.25 = 8651192450) CALCIUM (test code = 8.9 mg/dL 8.6-10.6 9024999482) eGFR (test code = 59.7 mL/min/1.73m2 8253503128) ALCIDES (test code = ALCIDES) Association of Glomerular Filtration Rate (GFR) and Staging of Kidney Disease* + -----+ --------+ +| GFR (mL/min/1.73 m2) ?| With Kidney Damage ?| ?Without Kidney Damage+ +------- +---- --+| ?>90 ?| ?Stage one ?| ? Normal ?+ ------+ ---------+--------- +| ?60-89 ?| ?Stage two ?| ? Decreased GFR ? + -----+ --------+ +| ?30-59 ?| ?Stage three ?| ? Stage three ? + -----+ --------+ +| ?15-29 ?| ?Stage four ? | ? Stage four ?+ ------+ ---------+--------- +| ?<15 (or dialysis) ? ?| ?Stage five ? | ? Stage five ?+ ------+ ---------+--------- + *Each stage assumes the associated GFR level has been in effect for at least three months. ?Stages 1 to 5, with or without kidney disease, indicate chronic kidney disease. Notes: Determination of stages one and two (with eGFR >59mL/min/1.73 m2) requires estimation of kidney damage for at least three months as defined by structural or functional abnormalities of the kidney, manifested by either:Pathological abnormalities or Markers of kidney damage (including abnormalities in the composition of the blood or urine or abnormalities in imaging tests). Lab Interpretation Abnormal (test code = 42703-2) [facility] Test Item Value Reference Range Interpretation Comments MAGNESIUM (test code = 7565235337) 2.0 mg/dL 1.7-2.4 Lab Interpretation (test code = Normal 77539-9) [facility] METABOLIC PANEL (NA, K, CL, CO2, GLUCOSE, BUN, CREATININE, CA)2023-01-20 12:25:19 Test Item Value Reference Range Interpretation Comments NA (test code = 142 mmol/L 135-145 3888290165) K (test code = 3.7 mmol/L 3.5-5.0 Slight 9622876190) hemolysis CL (test code = 101 mmol/L 98-108 1408937029) CO2 TOTAL (test code 33 mmol/L 23-31 H = 0392850652) AGAP (test code = 8 2-16 7667561308) BUN (test code = 17 mg/dL 7-23 Slight 3529261944) hemolysis GLUCOSE (test code = 146 mg/dL 70-110 H 3601674215) CREATININE (test code 1.25 mg/dL 0.60-1.25 = 2735809300) CALCIUM (test code = 8.9 mg/dL 8.6-10.6 8375058423) eGFR (test code = 59.7 mL/min/1.73m2 1529735526) ALCIDES (test code = ALCIDES) Association of Glomerular Filtration Rate (GFR) and Staging of Kidney Disease* + -----+ --------+ +| GFR (mL/min/1.73 m2) ?| With Kidney Damage ?| ?Without Kidney Damage+ +------- +---- --+| ?>90 ?| ?Stage one ?| ? Normal ?+ ------+ ---------+--------- +| ?60-89 ?| ?Stage two ?| ? Decreased GFR ? + -----+ --------+ +| ?30-59 ?| ?Stage three ?| ? Stage three ? + -----+ --------+ +| ?15-29 ?| ?Stage four ? | ? Stage four ?+ ------+ ---------+--------- +| ?<15 (or dialysis) ? ?| ?Stage five ? | ? Stage five ?+ ------+ ---------+--------- + *Each stage assumes the associated GFR level has been in effect for at least three months. ?Stages 1 to 5, with or without kidney disease, indicate chronic kidney disease. Notes: Determination of stages one and two (with eGFR >59mL/min/1.73 m2) requires estimation of kidney damage for at least three months as defined by structural or functional abnormalities of the kidney, manifested by either:Pathological abnormalities or Markers of kidney damage (including abnormalities in the composition of the blood or urine or abnormalities in imaging tests). Lab Interpretation Abnormal (test code = 80878-5) [facility] Test Item Value Reference Range Interpretation Comments MAGNESIUM (test code = 3909997658) 2.0 mg/dL 1.7-2.4 Lab Interpretation (test code = Normal 94688-1) [facility] WITH [id number] 11:55:13 Test Item Value Reference Range Interpretation Comments WBC (test code = 9.58 See_Comment [Automated 3890-2) message] The sy stem which generated this result transmitted reference range : 4.20 - 10.70 10*3/?L. The reference range was not used to interpret this result as normal/abnormal . RBC (test code = 5.09 See_Comment [Automated 549-8) message] The sy stem which generated this result transmitted reference range : 4.26 - 5.52 10*6/?L. The reference range was not used to interpret this result as normal/abnormal . HGB (test code = 13.2 g/dL 12.2-16.4 718-7) HCT (test code = 42.4 % 38.4-49.3 4544-3) MCV (test code = 83.3 fL 81.7-95.6 787-2) MCH (test code = 25.9 pg 26.1-32.7 L 785-6) MCHC (test code = 31.1 g/dL 31.2-35.0 L 786-4) RDW-SD (test code = 48.9 fL 38.5-51.6 86762-6) RDW-CV (test code = 16.0 % 12.1-15.4 H 788-0) PLT (test code = 238 See_Comment [Automated 677-3) message] The sy stem which generated this result transmitted reference range : 150 - 328 10*3/ ?L. The reference r moses was not used to interpret this result as normal/abnormal . MPV (test code = 10.5 fL 9.8-13.0 53955-1) NRBC/100 WBC (test 0.0 See_Comment [Automat ed code = 9267019611) message] The system which generated this result transmitted reference range : 0.0 - 10.0 /100 WBCs. The refer ence range was not u sed to interpret th is result as normal/abnormal . NRBC x10^3 (test code See_Comment [Auto mated = 6517266822) message] The s ystem which generated this result transmitted reference range : 10*3/?L. The reference range was not used to interpret this result as normal/abnormal . GRAN MAT (NEUT) % 65.0 % (test code = 770-8) IMM GRAN % (test code 0.50 % = 5072577007) LYMPH % (test code = 23.1 % 736-9) MONO % (test code = 7.6 % 5905-5) EOS % (test code = 3.4 % 713-8) BASO % (test code = 0.4 % 706-2) GRAN MAT x10^3(ANC) 6.22 10*3/uL 1.99-6.95 (test code = 6728955201) IMM GRAN x10^3 (test 0.05 10*3/uL 0.00-0.06 code = 9016615796) LYMPH x10^3 (test code 2.21 10*3/uL 1.09-3.23 = 731-0) MONO x10^3 (test code 0.73 10*3/uL 0.36-1.02 = 742-7) EOS x10^3 (test code = 0.33 10*3/uL 0.06-0.53 711-2) BASO x10^3 (test code 0.04 10*3/uL 0.01-0.09 = 704-7) Lab Interpretation Abnormal (test code = 69168-8) [facility] WITH [id number] 11:55:13 Test Item Value Reference Range Interpretation Comments WBC (test code = 9.58 See_Comment [Automated 6690-2) message] The sy stem which generated this result transmitted reference range : 4.20 - 10.70 10*3/?L. The reference range was not used to interpret this result as normal/abnormal . RBC (test code = 5.09 See_Comment [Automated 789-8) message] The sy stem which generated this result transmitted reference range : 4.26 - 5.52 10*6/?L. The reference range was not used to interpret this result as normal/abnormal . HGB (test code = 13.2 g/dL 12.2-16.4 718-7) HCT (test code = 42.4 % 38.4-49.3 4544-3) MCV (test code = 83.3 fL 81.7-95.6 787-2) MCH (test code = 25.9 pg 26.1-32.7 L 785-6) MCHC (test code = 31.1 g/dL 31.2-35.0 L 786-4) RDW-SD (test code = 48.9 fL 38.5-51.6 02483-7) RDW-CV (test code = 16.0 % 12.1-15.4 H 788-0) PLT (test code = 238 See_Comment [Automated 777-3) message] The sy stem which generated this result transmitted reference range : 150 - 328 10*3/ ?L. The reference r moses was not used to interpret this result as normal/abnormal . MPV (test code = 10.5 fL 9.8-13.0 70168-4) NRBC/100 WBC (test 0.0 See_Comment [Automat ed code = 7371339423) message] The system which generated this result transmitted reference range : 0.0 - 10.0 /100 WBCs. The refer ence range was not u sed to interpret th is result as normal/abnormal . NRBC x10^3 (test code See_Comment [Auto mated = 9763134039) message] The s ystem which generated this result transmitted reference range : 10*3/?L. The reference range was not used to interpret this result as normal/abnormal . GRAN MAT (NEUT) % 65.0 % (test code = 770-8) IMM GRAN % (test code 0.50 % = 7292167842) LYMPH % (test code = 23.1 % 736-9) MONO % (test code = 7.6 % 5905-5) EOS % (test code = 3.4 % 713-8) BASO % (test code = 0.4 % 706-2) GRAN MAT x10^3(ANC) 6.22 10*3/uL 1.99-6.95 (test code = 0253456518) IMM GRAN x10^3 (test 0.05 10*3/uL 0.00-0.06 code = 6022013410) LYMPH x10^3 (test code 2.21 10*3/uL 1.09-3.23 = 731-0) MONO x10^3 (test code 0.73 10*3/uL 0.36-1.02 = 742-7) EOS x10^3 (test code = 0.33 10*3/uL 0.06-0.53 711-2) BASO x10^3 (test code 0.04 10*3/uL 0.01-0.09 = 704-7) Lab Interpretation Abnormal (test code = 85269-4) [facility] 03:49:52 Test Item Value Reference Range Interpretation Comments HGB A1C (test code = 8.2 % 4.0-5.7 H 4548-4) ALCIDES (test code = ALCIDES) Reference RangesNormal: <5.7%Prediabetes: 5.7 - 6.4%Diabetes: > 6.5% Lab Interpretation (test Abnormal code = 90765-1) [facility]2023-01-20 03:49:52 Test Item Value Reference Range Interpretation Comments HGB A1C (test code = 8.2 % 4.0-5.7 H 4548-4) ALCIDES (test code = ALCIDES) Reference RangesNormal: <5.7%Prediabetes: 5.7 - 6.4%Diabetes: > 6.5% Lab Interpretation (test Abnormal code = 65024-7) [facility] [id number] 21:18:27 Test Item Value Reference Range Interpretation Comments NT-proBNP (test code = 2380 pg/mL <=125 H 3795462350) ALCIDES (test code = ALCIDES) Biotin has been reported to cause a negative bias, interpret results relative to patient's use of biotin. Lab Interpretation (test Abnormal code = 43444-6) [facility] [id number] 21:18:27 Test Item Value Reference Range Interpretation Comments NT-proBNP (test code = 2380 pg/mL <=125 H 4253516912) ALCIDES (test code = ALCIDES) Biotin has been reported to cause a negative bias, interpret results relative to patient's use of biotin. Lab Interpretation (test Abnormal code = 70579-0) [facility] METABOLIC PANEL (NA, K, CL, CO2, GLUCOSE, BUN, CREATININE, CA)2023-01-19 19:12:00 Test Item Value Reference Range Interpretation Comments NA (test code = 140 mmol/L 135-145 5597161306) K (test code = 3.9 mmol/L 3.5-5.0 5659822508) CL (test code = 106 mmol/L 98-108 8739582051) CO2 TOTAL (test code 26 mmol/L 23-31 = 0269788611) AGAP (test code = 8 2-16 2308232712) BUN (test code = 12 mg/dL 7-23 3977068865) GLUCOSE (test code = 97 mg/dL 70-110 6725498955) CREATININE (test code 1.11 mg/dL 0.60-1.25 = 2646722011) CALCIUM (test code = 8.8 mg/dL 8.6-10.6 1757339679) eGFR (test code = 68.5 mL/min/1.73m2 1005182879) ALCIDES (test code = ALCIDES) Association of Glomerular Filtration Rate (GFR) and Staging of Kidney Disease* + + +- +| GFR (mL/min/1.73 m2) ?| With Kidney Damage ?| ?Without Kidney Damage+ ------+ ----+ ------+| ?>90 ?| ?Stage one ?| ? Normal ?+ -+ + -+| ?60-89 ?| ?Stage two ?| ? Decreased GFR ? + + +- +| ?30-59 ?| ?Stage three ?| ? Stage three ? + + +- +| ?15-29 ?| ?Stage four ? | ? Stage four ?+ -+ + -+| ?<15 (or dialysis) ? ?| ?Stage five ? | ? Stage five ?+ -+ + -+ *Each stage assumes the associated GFR level has been in effect for at least three months. ?Stages 1 to 5, with or without kidney disease, indicate chronic kidney disease. Notes: Determination of stages one and two (with eGFR >59mL/min/1.73 m2) requires estimation of kidney damage for at least three months as defined by structural or functional abnormalities of the kidney, manifested by either:Pathological abnormalities or Markers of kidney damage (including abnormalities in the composition of the blood or urine or abnormalities in imaging tests). [facility] (59140)(TOTAL CHOLESTEROL, TRIGLYCERIDES, HDL)2023-01-19 19:12:00 Test Item Value Reference Range Interpretation Comments CHOL (test code = 5794953794) 131 mg/dL 120-200 HDL (test code = 5808737186) 30 mg/dL >=40 L HDLC RATIO (test code = 9534395627) 4.4 <=5.0 TRIG (test code = 2512508457) 71 mg/dL 30-170 LDL CHOL (test code = 05461-5) 87 mg/dL <=160 VLDL (test code = 9898413165) 14 mg/dL 5-60 Lab Interpretation (test code = Abnormal 11860-6) [facility] (NA, K, CL, CO2, GLUCOSE, BUN, CREATININE, CA)2023-01-19 19:12:00 Test Item Value Reference Range Interpretation Comments NA (test code = 140 mmol/L 135-145 6034456145) K (test code = 3.9 mmol/L 3.5-5.0 1754236030) CL (test code = 106 mmol/L 98-108 2450104356) CO2 TOTAL (test code 26 mmol/L 23-31 = 9520510383) AGAP (test code = 8 2-16 2724132167) BUN (test code = 12 mg/dL 7-23 4186310568) GLUCOSE (test code = 97 mg/dL 70-110 9195832138) CREATININE (test code 1.11 mg/dL 0.60-1.25 = 4875638861) CALCIUM (test code = 8.8 mg/dL 8.6-10.6 1120479529) eGFR (test code = 68.5 mL/min/1.73m2 2700820824) ALCIDES (test code = ALCIDES) Association of Glomerular Filtration Rate (GFR) and Staging of Kidney Disease* + + +- +| GFR (mL/min/1.73 m2) ?| With Kidney Damage ?| ?Without Kidney Damage+ ------+ ----+ ------+| ?>90 ?| ?Stage one ?| ? Normal ?+ -+ + -+| ?60-89 ?| ?Stage two ?| ? Decreased GFR ? + + +- +| ?30-59 ?| ?Stage three ?| ? Stage three ? + + +- +| ?15-29 ?| ?Stage four ? | ? Stage four ?+ -+ + -+| ?<15 (or dialysis) ? ?| ?Stage five ? | ? Stage five ?+ -+ + -+ *Each stage assumes the associated GFR level has been in effect for at least three months. ?Stages 1 to 5, with or without kidney disease, indicate chronic kidney disease. Notes: Determination of stages one and two (with eGFR >59mL/min/1.73 m2) requires estimation of kidney damage for at least three months as defined by structural or functional abnormalities of the kidney, manifested by either:Pathological abnormalities or Markers of kidney damage (including abnormalities in the composition of the blood or urine or abnormalities in imaging tests). [facility] (52904)(TOTAL CHOLESTEROL, TRIGLYCERIDES, HDL)2023-01-19 19:12:00 Test Item Value Reference Range Interpretation Comments CHOL (test code = 3535111755) 131 mg/dL 120-200 HDL (test code = 2506890707) 30 mg/dL >=40 L HDLC RATIO (test code = 9399193214) 4.4 <=5.0 TRIG (test code = 8759167510) 71 mg/dL 30-170 LDL CHOL (test code = 36163-0) 87 mg/dL <=160 VLDL (test code = 0698962733) 14 mg/dL 5-60 Lab Interpretation (test code = Abnormal 70471-0) [facility] / [id number] 19:07:04 Test Item Value Reference Range Interpretation Comments PROTIME PATIENT (test 13.5 See_Comment H [Auto mated message] code = 5964-2) The system [employer] generated this result transmitted ref erence range: 10.1 - 1 2.6 Seconds. The reference range was not used to int erpret this result as normal/abnormal . INR (test code = 6301-6) 1.2 Nor mal INR <1.1; Warfarin Therap eutic range 2.0 to 3. 0 or 2.5 to 3.5, dep ending upon the indica tions. Lab Interpretation (test Abnormal code = 20026-9) [facility] / [id number] 19:07:04 Test Item Value Reference Range Interpretation Comments PROTIME PATIENT (test 13.5 See_Comment H [Auto mated message] code = 5964-2) The system [employer] generated this result transmitted ref erence range: 10.1 - 1 2.6 Seconds. The reference range was not used to int erpret this result as normal/abnormal . INR (test code = 6301-6) 1.2 Nor mal INR <1.1; Warfarin Therap eutic range 2.0 to 3. 0 or 2.5 to 3.5, dep ending upon the indica tions. Lab Interpretation (test Abnormal code = 51608-0) [facility] WITH [id number] 18:51:36 Test Item Value Reference Range Interpretation Comments WBC (test code = 8.93 See_Comment [Automated 4563-2) message] The sy stem which generated this result transmitted reference range : 4.20 - 10.70 10*3/?L. The reference range was not used to interpret this result as normal/abnormal . RBC (test code = 4.76 See_Comment [Automated 049-8) message] The sy stem which generated this result transmitted reference range : 4.26 - 5.52 10*6/?L. The reference range was not used to interpret this result as normal/abnormal . HGB (test code = 12.3 g/dL 12.2-16.4 718-7) HCT (test code = 40.1 % 38.4-49.3 4544-3) MCV (test code = 84.2 fL 81.7-95.6 787-2) MCH (test code = 25.8 pg 26.1-32.7 L 785-6) MCHC (test code = 30.7 g/dL 31.2-35.0 L 786-4) RDW-SD (test code = 49.2 fL 38.5-51.6 54825-8) RDW-CV (test code = 15.9 % 12.1-15.4 H 788-0) PLT (test code = 215 See_Comment [Automated 777-3) message] The sy stem which generated this result transmitted reference range : 150 - 328 10*3/ ?L. The reference r moses was not used to interpret this result as normal/abnormal . MPV (test code = 10.8 fL 9.8-13.0 66649-3) NRBC/100 WBC (test 0.0 See_Comment [Automat ed code = 2581014333) message] The system which generated this result transmitted reference range : 0.0 - 10.0 /100 WBCs. The refer ence range was not u sed to interpret th is result as normal/abnormal . NRBC x10^3 (test code See_Comment [Auto mated = 7645453453) message] The s ystem which generated this result transmitted reference range : 10*3/?L. The reference range was not used to interpret this result as normal/abnormal . GRAN MAT (NEUT) % 66.4 % (test code = 770-8) IMM GRAN % (test code 0.30 % = 6952988243) LYMPH % (test code = 22.2 % 736-9) MONO % (test code = 7.8 % 5905-5) EOS % (test code = 2.9 % 713-8) BASO % (test code = 0.4 % 706-2) GRAN MAT x10^3(ANC) 5.92 10*3/uL 1.99-6.95 (test code = 2829076058) IMM GRAN x10^3 (test 0.03 10*3/uL 0.00-0.06 code = 4194293371) LYMPH x10^3 (test code 1.98 10*3/uL 1.09-3.23 = 731-0) MONO x10^3 (test code 0.70 10*3/uL 0.36-1.02 = 742-7) EOS x10^3 (test code = 0.26 10*3/uL 0.06-0.53 711-2) BASO x10^3 (test code 0.04 10*3/uL 0.01-0.09 = 704-7) Lab Interpretation Abnormal (test code = 36108-5) [facility] WITH [id number] 18:51:36 Test Item Value Reference Range Interpretation Comments WBC (test code = 8.93 See_Comment [Automated 9537-2) message] The sy stem which generated this result transmitted reference range : 4.20 - 10.70 10*3/?L. The reference range was not used to interpret this result as normal/abnormal . RBC (test code = 4.76 See_Comment [Automated 498-8) message] The sy stem which generated this result transmitted reference range : 4.26 - 5.52 10*6/?L. The reference range was not used to interpret this result as normal/abnormal . HGB (test code = 12.3 g/dL 12.2-16.4 718-7) HCT (test code = 40.1 % 38.4-49.3 4544-3) MCV (test code = 84.2 fL 81.7-95.6 787-2) MCH (test code = 25.8 pg 26.1-32.7 L 785-6) MCHC (test code = 30.7 g/dL 31.2-35.0 L 786-4) RDW-SD (test code = 49.2 fL 38.5-51.6 44744-2) RDW-CV (test code = 15.9 % 12.1-15.4 H 788-0) PLT (test code = 215 See_Comment [Automated 777-3) message] The sy stem which generated this result transmitted reference range : 150 - 328 10*3/ ?L. The reference r moses was not used to interpret this result as normal/abnormal . MPV (test code = 10.8 fL 9.8-13.0 24052-8) NRBC/100 WBC (test 0.0 See_Comment [Automat ed code = 4544188928) message] The system which generated this result transmitted reference range : 0.0 - 10.0 /100 WBCs. The refer ence range was not u sed to interpret th is result as normal/abnormal . NRBC x10^3 (test code See_Comment [Auto mated = 4080194666) message] The s ystem which generated this result transmitted reference range : 10*3/?L. The reference range was not used to interpret this result as normal/abnormal . GRAN MAT (NEUT) % 66.4 % (test code = 770-8) IMM GRAN % (test code 0.30 % = 7967831484) LYMPH % (test code = 22.2 % 736-9) MONO % (test code = 7.8 % 5905-5) EOS % (test code = 2.9 % 713-8) BASO % (test code = 0.4 % 706-2) GRAN MAT x10^3(ANC) 5.92 10*3/uL 1.99-6.95 (test code = 4599063421) IMM GRAN x10^3 (test 0.03 10*3/uL 0.00-0.06 code = 5856866659) LYMPH x10^3 (test code 1.98 10*3/uL 1.09-3.23 = 731-0) MONO x10^3 (test code 0.70 10*3/uL 0.36-1.02 = 742-7) EOS x10^3 (test code = 0.26 10*3/uL 0.06-0.53 711-2) BASO x10^3 (test code 0.04 10*3/uL 0.01-0.09 = 704-7) Lab Interpretation Abnormal (test code = 13766-8) [facility] History and Physical Notes Date/Time Note Provider Source 2023-07-06 11:21:13 [id number] of this [facility] note is different from the original.Interval H&P:I interviewed and examined the patient today. Additionally, I reviewed laboratory results, imaging, and microbiology. Compared to the most recent H&P, there have been no major changes except for his evaluation by cardiology. They deemed that he is at moderate cardiac risk for surgery and the recommend against aggressive IVF perioperatively. The risks of the procedure were explained. All questions were answered, voiced understanding and agreement. Informed written consent was obtained. Site marked. ASA held prior to surgery. Plan is to proceed to the OR.Waqar Infante MD07/06/23 11:21 AMGENERAL SURGERY CLINIC NOTEReason for Visit / Chief Complaint: Bilateral inguinal hernia History of Present Illness: Lb Epstein is a 57 year old male with PMHx as below who presents for bilateral inguinal hernia. He reports the right being worse than the left. The left isn't bothersome at all. He has a history of CHF and has only gotten on water pill. He had an ECHO done in Dec with reduction of EF to 15-20%. He has a second echo scheduled for tomorrow. Per chart, he has a plan for an ICD, but patient reports that cardiology cleared him to have hernia repair first since this bothersome. He lives on the second floor and reports improvement and with ambulation. He does have a chronic cough and is an active smoker. He had a CT done last month showing a large fat containing right inguinal hernia. PCI last stent in June 2021 on aspirin. Past Medical History:Past Medical History: Diagnosis Date CAD in [place] artery Cardiomegaly CHF (congestive heart failure) Cholelithiasis Dyslipidemia H/O heart artery stent x2 right HTN (hypertension) Tobacco dependence Unilateral inguinal hernia, without obstruction or gangrene, not specified as recurrent bilateral Past Surgical History:Past Surgical History: Procedure Laterality Date CT ANGIOGRAPHY CARDIAC STENT GRAFT Right Allergies:Allergies Allergen Reactions Morphine Nausea and/or Vomiting Medications:Current Discharge Medication List CONTINUE these medications which have NOT CHANGED Details dapagliflozin (FARXIGA) 10 mg tablet Take 1 tablet by mouth in the morning.Qty: 30 tablet, Refills: 11 Associated Diagnoses: Congestive heart failure, unspecified HF chronicity, unspecified heart failure type !! furosemide 20 mg tablet Take 2 tablets by mouth every evening.Qty: 30 tablet, Refills: 11 Associated Diagnoses: Congestive heart failure, unspecified HF chronicity, unspecified heart failure type !! furosemide 80 mg tablet Take 1 tablet by mouth every morning.Qty: 30 tablet, Refills: 11 Associated Diagnoses: Congestive heart failure, unspecified HF chronicity, unspecified heart failure type metoprolol succinate XL 25 mg 24 hr tablet Take 1.5 tablets by mouth in the morning and 1.5 tablets in the evening.Qty: 90 tablet, Refills: 11 Associated Diagnoses: Congestive heart failure, unspecified HF chronicity, unspecified heart failure type aspirin 81 mg EC tablet Take 1 tablet by mouth in the morning.Qty: 30 tablet, Refills: 3 Associated Diagnoses: Congestive heart failure, unspecified HF chronicity, unspecified heart failure type atorvastatin 80 mg tablet Take 1 tablet by mouth at bedtime.Qty: 30 tablet, Refills: 11 Associated Diagnoses: Congestive heart failure, unspecified HF chronicity, unspecified heart failure type albuterol 90 mcg/actuation inhaler Inhale 2 Puffs every 4 (four) hours as needed for Wheezing or Shortness of Breath.Qty: 8.5 g, Refills: 0 Associated Diagnoses: SOB (shortness of breath) !! - Potential duplicate medications found. Please discuss with provider. Current Facility-Administered Medications Medication Dose Route Frequency Last Rate Last Admin ceFAZolin (ANCEF) 1,000 mg in NaCl 0.9% (NS) 100 mL MINI-BAG 1,000 mg Intravenous O.R. HOLDING ONCE Family History:Family History Problem Relation Age of Onset Coronary Heart Disease Mother Heart Mother Lung Cancer Maternal Grandmother Social History:Social History Socioeconomic History Marital status: Single Tobacco Use Smoking status: Every Day Packs/day: 0.50 Years: 20.00 Additional pack years: 0.00 Total pack years: 10.00 Types: Cigarettes Passive exposure: Current Smokeless tobacco: Never Vaping Use Vaping Use: Never used Substance and Sexual Activity Alcohol use: Yes Alcohol/week: 1.0 standard drink of alcohol Types: 1 Shots of liquor per week Comment: Rarely Drug use: Never Social Determinants of Health Financial Resource Strain: High Risk (01/23/2023) Overall Financial Resource Strain (CARDIA) Difficulty of Paying Living Expenses: Very hard Food Insecurity: Food Insecurity Present (01/23/2023) Hunger Vital Sign Worried About Running Out of Food in the Last Year: Never true Ran Out of Food in the Last Year: Sometimes true Transportation Needs: Unmet Transportation Needs (01/23/2023) PRAPARE - Transportation Lack of Transportation (Medical): Yes Lack of Transportation (Non-Medical): Yes Physical Activity: Inactive (01/22/2023) Exercise Vital Sign Days of Exercise per Week: 0 days Minutes of Exercise per Session: 0 min Social Connections: Unknown (01/22/2023) Social Connection and Isolation Panel [NHANES] Frequency of Communication with Friends and Family: More than three times a week Marital Status: Never Review of Systems: A 14 point ROS was obtained, only positive responses are in BOLDConstitutional: Fever, chills, loss of appetite, fatigue, unexplained weight loss, unexplained weight gain, weaknessHead/Ears/Nose/Mouth/Throat:Hea d: Headache, head injury, neck pain, neck stiffnessEars: Ear discharge, hearing loss, ear pain, tinnitusNose: Nose bleeds, sinus congestion, runny nose, postnasal drip, sneezing, sinus pressureMouth: Dental problems, mouth sores, sore tongue, dry mouthThroat: Sore throat, trouble swallowing, voice changeEyes: Discharge, itching, pain, redness, pain, vision disturbance, blurred vision, vision loss, cataracts, glaucomaCV: Chest pain, palpitations, arrhythmias, dyspnea on exertion, othopnea, claudication, edema, coronary artery disease/history of MIRespiratory: Cough, sputum production, hemoptysis, wheezing, shortness of breath, sleep apneaGI: Dysphagia, abdominal pain, abdominal distention, indigestion, nausea, vomiting, diarrhea, constipation, hematemesis, blood in stool or dark stool, rectal bleeding, rectal pain, jaundice : Frequency, urgency, pain or burning with urination, flank pain, hematuria, incontinence, change in urinary stream, discharge, bleeding, pelvic pain,Musculoskeletal: Muscle pain, joint pain, joint swelling, back pain, stiffness, weakness, limitation of motion, arthritis, traumaIntegumentary/Breast: Integumentary: Rash, itching, pigmented lesions, lumps, tenderness, swelling, woundBreast: Pain, lumps, nipple discharge, skin changesNeurological: Weakness, sensory changes, syncope, seizures, headache, numbness, tingling, tremor, traumaHematologic/Lymphatic: Hematologic: Bleeding tendency, easy bruising, history of blood clots, anticoagulation/antiplatelet therapyLymphatic: LymphadenopathyEndocrine: Polyuria, polydipsia, polyphagia, heat or cold intolerance, hair loss, appetite changesAllergic/Immunologic: Allergic: Allergic reactionsImmunologic: Recurrent infectionsPsychiatric: Agitation, confusion, decreased concentration, hallucinations, anxiety, self-injury, sleep disturbance, suicidal ideationPhysical Exam:BP 117/80 | Pulse 68 | Temp 36.7 ?C (98 ?F) (Temporal Artery) | Resp 18 | Ht 1.854 m (6' 1") | Wt 95.3 kg (210 lb 1.6 oz) | SpO2 94% | BMI 27.72 kg/m? Constitutional: Awake, alert, oriented, in no acute distressHead: Normocephalic, atraumaticRespiratory: Symmetry of chest wall motion, no respiratory distress, + dry cough GI: Soft abdomen, large reducible R inguinal hernia that immediately pops back out. No overlying skin changes Extremities: No clubbing, cyanosis, or edemaMusculoskeletal: Normal tone and strength, normal range of motionNeurologic: CN II through XII grossly intact, no focal deficitsSkin: Warm and dry, capillary refill <2 seconds, no jaundice, rashes, lesions, or erythemaHematologic/lymphatic: No cervical, axillary, or inguinal lymphadenopathyPsychiatric: Appropriate mood and affect, no obvious deficits of insight or judgmentLabs:CBCWBC (10*3/?L) Date Value 04/12/2023 9.35 RBC (10*6/?L) Date Value 04/12/2023 5.48 PLT (10*3/?L) Date Value 04/12/2023 218 HGB (g/dL) Date Value 04/12/2023 14.2 HCT (%) Date Value 04/12/2023 45.7 BMPNA (mmol/L) Date Value 04/12/2023 142 K (mmol/L) Date Value 04/12/2023 4.7 CALCIUM (mg/dL) Date Value 04/12/2023 9.5 CL (mmol/L) Date Value 04/12/2023 104 BUN (mg/dL) Date Value 04/12/2023 17 CREATININE (mg/dL) Date Value 04/12/2023 1.21 GLUCOSE (mg/dL) Date Value 04/12/2023 125 (H) CO2 TOTAL (mmol/L) Date Value 04/12/2023 30 Hepatic Function PanelALBUMIN (g/dL) Date Value 04/12/2023 4.1 T PROTEIN (g/dL) Date Value 04/12/2023 7.5 TOTAL BILI (mg/dL) Date Value 04/12/2023 0.9 ALTv (U/L) Date Value 04/12/2023 23 AST(SGOT) (U/L) Date Value 04/12/2023 23 ALK PHOS (U/L) Date Value 04/12/2023 107 Microbiology:There are no current results on file for these tests and/or test for 1 year.QUANTATIVE CULTUREThere are no current results on file for these tests and/or test for 1 year.wound cultureRadiology:CT ABDOMEN PELVIS WO CONTRASTResult Date: . Large right inguinal hernia containing only fat. The hernia defect measures approximately 4.7 cm in transverse dimension. There is a tiny-small left inguinal hernia which also contains fat. 2. Midline fat-containing umbilical hernia. The umbilical hernia defect measures approximately 2 cm in transverse dimension. 3. Cholelithiasis 4. Mild thickening and nodularity of the adrenal glands is present which may represent adenomatous or hyperplastic changes. 5. No renal stone or hydronephrosis 6. Normal appendix HS:Y No results found for this visit on 07/06/23.Assessment: Lb Epstein is a 57 year old male with bilateral inguinal hernia, R worse than L. He reports that he is pending a ICD but reports his cardiology has cleared for hernia repair. If cardiology will clear, I will proceed with R open inguinal hernia as this is the most symptomatic. I think an open repair is best for him because of the large fat containing hernia. I also do not want patient to be under anesthesia for a repair of the left at this time if he is minimially symptomatic and already has a low EFPlan:Will need cardiac eval - I am not sure if cardiology needs to do ICD prior Will go ahead and post for open right inguinal hernia repairIf cardiology deems patient too high risk, we will delay surgery after ICD Annita Grijalva M.D. ssociated attestation - Annita Grijalva MD - 07/06/2023 12:06 PM CDT Patient seen and examinedReviewed imagesPatient is moderate to high risk for surgery from cardiac and pulm standpointHe is adamant he doesn't want a spinalAbove discussed with Dr. Dickinson is general anesthesiaR inguinal [place] [id number] and physical [id number], [id number]:06:55H istory and physical [id number] for patient [id number] and physical [id number] - [address] [id number] [id number]:06:551 [id number]. [id number]
[2023-10-08 22:37] LABS: Absolute Lymphocytes (CBC) 1.6 K/uL (0.7-4.9); Hematocrit 38.8 % (39.6-49.0); Lymphocytes % 21.2 % (15.3-44.8); MCV 79.1 fL (80-100); MPV 8.4 fL (7.6-11.3); Platelets 213 thou/uL (152-406); RBC Red Blood Cell Count 4.91 M/uL (4.33-5.43)
[2023-10-08 22:43] LABS: SARS-CoV-2 Antigen Rapid Res Negative (Negative)
[2023-10-08 22:55] LABS: Magnesium 2.1 mg/dL (1.6-2.4); Potassium 3.7 mEq/L (3.5-5.1); Troponin High Sensitivity 20.5 pg/mL (<58.9)
--- NOTE | 2023-10-09 00:16 | ER ---
Nurse's Notes [facility] Name: Lb Epstein Age: 57 yrs Sex: Male : 1965 Arrival Date: 10/08/2023 Time: 20:45 Bed 16 Private MD: Diagnosis: Unspecified combined systolic (congestive) and diastolic (congestive) heart failure;Shortness of breath Presentation: 10/08 21:29 Chief complaint: Patient states: SOB "I have been wet and cold x 3 days , the rain kl ruined my medication. Coronavirus screen: Vaccine status: Patient reports being unvaccinated. Ebola Screen: Patient negative for fever greater than or equal to 101.5 degrees Fahrenheit, and additional compatible Ebola Virus Disease symptoms. Initial Sepsis Screen: Does the patient meet any 2 criteria? No. Patient's initial sepsis screen is negative. Does the patient have a suspected source of infection? No. Patient's initial sepsis screen is negative. Risk Assessment: Do you want to hurt yourself or someone else? Patient reports no desire to harm self or others. 21:29 Method Of Arrival: EMS: [facility] 21:29 Acuity: JAVON 3 kl Triage Assessment: 21:31 General: Appears in no apparent distress. comfortable, Behavior is calm, cooperative. Pain: Denies pain. Respiratory: Reports shortness of breath on exertion Airway is patent Trachea midline Respiratory effort is even, unlabored, Respiratory pattern is regular, symmetrical, Onset: The symptoms/episode began/occurred gradually, the patient has mild shortness of breath. Historical: - Allergies: 21:31 Morphine; headaches; kl - PMHx: 21:31 Hypertensive disorder; HI; Congestive heart failure; kl - PSHx: 21:31 Cardiac stents x2; kl - Immunization history:: Adult Immunizations not immunized. - Social history:: Smoking status: Patient reports the use of cigarette tobacco products, smokes one-half pack cigarettes per day. Screenin:30 [facility] ED Fall Risk Assessment (Adult) History of falling in the last 3 months, pf1 including since admission No falls in past 3 months (0 pts) Confusion or Disorientation No (0 pts) Intoxicated or Sedated No (0 pts) Impaired Gait No (0 pts) Mobility Assist Device Used No (0 pt) Altered Elimination No (0 pt) Score/Fall Risk Level 0 - 2 = Low Risk Oriented to surroundings, Maintained a safe environment, Educated pt \\T\\ family on fall prevention, incl call for assistance when getting out of bed, Assessed \\T\\ reinforced patient's understanding of fall precautions, Provided non-skid footwear, Hourly rounding (assess needs \\T\\ fall precautionary measures) done, Used ambulatory aids as needed (educated on \\T\\ assisted with), Used gait belt as appropriate. Abuse screen: Denies threats or abuse. Nutritional screening: No deficits noted. Tuberculosis screening: No symptoms or risk factors identified. Assessment: 21:30 General: Appears in no apparent distress. comfortable, well groomed, well developed, pf1 Behavior is calm, cooperative, appropriate for age, quiet. 21:30 Pain: Denies pain. Neuro: No deficits noted. Level of Consciousness is awake, alert, pf1 obeys commands, Oriented to person, place, time, situation. Cardiovascular: Reports shortness of breath, Capillary refill < 3 seconds Patient's skin is warm and dry. Respiratory: Airway is patent Respiratory effort is even, unlabored, Respiratory pattern is regular, symmetrical, Breath sounds are diminished bilaterally. GI: No deficits noted. No signs and/or symptoms were reported involving the gastrointestinal system. : No deficits noted. No signs and/or symptoms were reported regarding the genitourinary system. EENT: No deficits noted. No signs and/or symptoms were reported regarding the EENT system. 22:30 Reassessment: Patient appears in no apparent distress at this time. Patient and/or pf1 family updated on plan of care and expected duration. Pain level reassessed. Patient is alert, oriented x 3, equal unlabored respirations, skin warm/dry/pink. Patient states symptoms have improved. 23:30 Reassessment: Patient appears in no apparent distress at this time. Patient and/or pf1 family updated on plan of care and expected duration. Pain level reassessed. Patient is alert, oriented x 3, equal unlabored respirations, skin warm/dry/pink. Patient states feeling better. Patient states symptoms have improved. 10/09 00:20 Reassessment: Patient appears in no apparent distress at this time. Patient and/or pf1 family updated on plan of care and expected duration. Pain level reassessed. Patient is alert, oriented x 3, equal unlabored respirations, skin warm/dry/pink. Patient 1000ml of urine output Patient states feeling better. Patient states symptoms have improved. Vital Signs: 10/08 21:29 BP 144 / 72; Pulse 72; Resp 20; Temp 98(O); Pulse Ox 98% on R/A; Weight 104.78 kg; kl Height 6 ft. 1 in. ; 22:30 BP 145 / 78; Pulse 75; Resp 16; Pulse Ox 99% on R/A; pf1 23:30 BP 135 / 70; Pulse 78; Resp 16; Pulse Ox 97% on R/A; pf1 10/09 00:30 BP 132 / 68; Pulse 81; Resp 16; Pulse Ox 97% on R/A; Pain 0/10; pf1 10/08 21:29 Body Mass Index 30.48 (104.78 kg, 185.42 cm) kl 10/09 00:30 Pain Scale: Adult pf1 ED Course: 10/08 20:55 Patient arrived in ED. mr 21:05 Rashawn Lorenz PA is PHCP. cp 21:05 Davis Hammonds MD is Attending Physician. cp 21:30 Patient has correct armband on for positive identification. Placed in gown. Bed in low pf1 position. Call light in reach. Side rails up X 1. 21:30 Arm band placed on right wrist. pf1 21:31 Triage completed. kl 22:28 Inserted saline lock: 22 gauge in left antecubital area, using aseptic technique. Blood oe collected. 22:50 Chest Single View In Process Unspecified. EDMS 23:37 SARS-COV-2 Antigen Rapid Sent. pf1 10/09 00:44 No provider procedures requiring assistance completed. pf1 00:45 IV discontinued, intact, bleeding controlled, No redness/swelling at site. Pressure pf1 dressing applied. 00:46 Provided Education on: prescription. pf1 Administered Medications: 10/08 23:37 Drug: Furosemide IVP 40 mg IVP once; give over 2 minutes Route: IVP; Site: left pf1 antecubital; 10/09 00:30 Follow up: Response: No adverse reaction; Marked relief of symptoms pf1 Medication: 00:45 VIS not applicable for this client. pf1 Outcome: 00:16 Discharge ordered by . cp 00:44 Discharged to home ambulatory, pf1 00:44 Condition: improved 00:44 Discharge instructions given to patient, Instructed on discharge instructions, follow up and referral plans. Demonstrated understanding of instructions, follow-up care, medications, Prescriptions given X 1, 00:44 Patient left the ED. pf1 Signatures: Dispatcher [employer] EDMS Sunitha Mason, RN RN Lizy Chávez, [facility] Reg Gerda Rashawn, PA Rodney Barrow cp, [place], RN RN pf1 Corrections: (The following items were deleted from the chart) 03:40 00:47 Patient left the ED. pf1 pf1 03:44 00:45 No provider procedures requiring assistance completed. pf1 pf1
--- NOTE | 2023-10-09 00:16 | EDPHYS ---
Physician Documentation [facility] Name: Lb Epstein Age: 57 yrs Sex: Male : 1965 Arrival Date: 10/08/2023 Time: 20:45 Bed 16 Private MD: ED Physician Davis Hammonds HPI: 10/08 21:45 This 57 yrs old Male presents to ER via EMS with complaints of Breathing Difficulty. cp 21:45 The patient has shortness of breath with light activity. cp 21:45 Onset: The symptoms/episode began/occurred gradually. cp 21:45 Duration: The symptoms are continuous, and are steadily getting worse. Associated signs cp and symptoms: Pertinent negatives: chest pain, productive cough, diaphoresis, fever, vomiting. Severity of symptoms: in the emergency department the symptoms are unchanged. Patient with PMHX significant for HTN and CHF. Patient reports he was kicked out of girlfriend's home recently and has been living on [address]. Reports prescribed medications were ruined by weather and he has been off meds for past 3 days. Historical: - Allergies: 21:31 Morphine; headaches; kl - PMHx: 21:31 Hypertensive disorder; MT; Congestive heart failure; kl - PSHx: 21:31 Cardiac stents x2; kl - Immunization history:: Adult Immunizations not immunized. - Social history:: Smoking status: Patient reports the use of cigarette tobacco products, smokes one-half pack cigarettes per day. ROS: 21:50 Constitutional: Negative for body aches, chills, fever, poor PO intake, cp 21:50 Eyes: Negative for injury, pain, redness, and discharge, cp 21:50 ENT: Negative for drainage from ear(s), ear pain, sore throat, difficulty swallowing, difficulty handling secretions, 21:50 Cardiovascular: Positive for edema, Negative for chest pain, 21:50 Respiratory: Positive for shortness of breath, Negative for cough, wheezing, 21:50 Abdomen/GI: Negative for abdominal pain, vomiting, diarrhea, constipation, 21:50 Neuro: Negative for altered mental status, dizziness, headache, weakness, 21:50 All other systems are negative, Exam: 21:55 Constitutional: The patient appears in no acute distress, alert, awake, comfortable, cp non-diaphoretic, non-toxic, well developed, well nourished, 21:55 Head/Face: Normocephalic, atraumatic. cp 21:55 Eyes: Periorbital structures: appear normal, Conjunctiva: normal, no exudate, no injection, Sclera: no appreciated abnormality, Lids and lashes: appear normal, bilaterally, 21:55 ENT: External ear(s): are unremarkable, Nose: is normal, Mouth: Lips: moist, Oral mucosa: pink and intact, moist, Posterior pharynx: Airway: no evidence of obstruction, patent, 21:55 Neck: ROM/movement: is normal, is supple, without pain, no range of motions limitations, 21:55 Chest/axilla: Inspection: normal, 21:55 Cardiovascular: Rate: normal, Rhythm: regular, Edema: ankle edema, that is mild, JVD: is not appreciated, 21:55 Respiratory: the patient does not display signs of respiratory distress, Respirations: normal, no use of accessory muscles, no retractions, labored breathing, is not present, Breath sounds: decreased breath sounds, are not appreciated, stridor, is not appreciated, wheezing: is not appreciated, 21:55 Abdomen/GI: Inspection: abdomen appears normal, Palpation: abdomen is soft and non-tender, in all quadrants, 21:55 Back: pain, is absent, ROM is normal, 21:55 Neuro: Orientation: to person, place \T\ time. Mentation: is normal, Motor: moves all fours, strength is normal, Sensation: is normal, 22:18 ECG was reviewed by the Attending Physician. cp Vital Signs: 21:29 BP 144 / 72; Pulse 72; Resp 20; Temp 98(O); Pulse Ox 98% on R/A; Weight 104.78 kg; kl Height 6 ft. 1 in. ; 22:30 BP 145 / 78; Pulse 75; Resp 16; Pulse Ox 99% on R/A; pf1 23:30 BP 135 / 70; Pulse 78; Resp 16; Pulse Ox 97% on R/A; pf1 10/09 00:30 BP 132 / 68; Pulse 81; Resp 16; Pulse Ox 97% on R/A; Pain 0/10; pf1 10/08 21:29 Body Mass Index 30.48 (104.78 kg, 185.42 cm) kl 10/09 00:30 Pain Scale: Adult pf1 MDM: 10/08 21:21 Patient medically screened. 10/09 00:15 Antibiotic administration: Not indicated, the patient does not have an appreciated cp infiltrate. 00:15 Differential diagnosis: CHF exacerbation, Myocardial Infarction pneumonia, pulmonary cp edema, Unstable Angina. Data reviewed: vital signs, nurses notes, lab test result(s), EKG, radiologic studies, plain films. Consideration of Admission/Observation Escalation of care including admission/observation considered. I considered the following discharge prescriptions or medication management in the emergency department Medications were administered in the Emergency Department. See MAR. Care significantly affected by the following chronic conditions: Hypertension, Congestive Heart Failure. Counseling: I had a detailed discussion with the patient and/or guardian regarding the historical points, exam findings, and any diagnostic results supporting the discharge/admit diagnosis, lab results, radiology results, the need for outpatient follow up, a family practitioner, to return to the emergency department if symptoms worsen or persist or if there are any questions or concerns that arise at home. ED course: VSS. Patient not hypoxic and not requiring oxygen. No signs of respiratory distress. Will discharge to home for continued monitoring. 10/08 21:40 Order name: SARS-COV-2 Antigen Rapid 10/08 22:26 Order name: SARS-COV-2 Antigen Rapid; Complete Time: 22:52 EDMS 10/08 22:26 Order name: Influenza Screen (A ; Complete Time: 22:58 EDMS 10/08 22:58 Interpretation: Reviewed. 10/08 22:34 Order name: Basic Metabolic Panel; Complete Time: 22:58 EDMS 10/08 22:58 Interpretation: Normal except: GLUC 155; GFR 65. 10/08 22:34 Order name: Troponin High Sensitivity; Complete Time: 22:58 EDMS 10/08 22:58 Interpretation: Troponin HS 20.5; Reviewed. 10/08 22:34 Order name: NT PRO-BNP; Complete Time: 22:58 EDMS 10/08 22:58 Interpretation: Abnormal: NT PRO-BNP 2723. 10/08 22:34 Order name: Magnesium; Complete Time: 22:58 EDMS 10/08 22:58 Interpretation: Reviewed. 10/08 22:34 Order name: CBC with Automated Diff; Complete Time: 22:52 EDMS 10/08 22:52 Interpretation: Normal except: HGB 12.2; HCT 38.8; MCV 79.1; MCH 24.8; MCHC 31.4; RDW cp 17.4. 10/08 22:07 Order name: Chest Single View EDFL 10/08 21:40 Order name: EKG; Complete Time: 23:01 10/08 21:40 Order name: Cardiac monitoring; Complete Time: 22:15 10/08 21:40 Order name: EKG - Nurse/Tech; Complete Time: 22:15 10/08 21:40 Order name: IV Saline Lock; Complete Time: 22:45 10/08 21:40 Order name: Labs collected and sent; Complete Time: 22:45 10/08 21:40 Order name: O2 Per Protocol; Complete Time: 22:15 10/08 21:40 Order name: O2 Sat Monitoring; Complete Time: 22:15 EC/13 22:18 Rate is 80 beats/min. Rhythm is regular. SC interval is normal. QRS interval is cp prolonged at 102 msec. QT interval is normal. Interpreted by me. Reviewed by me. Administered Medications: 23:37 Drug: Furosemide IVP 40 mg IVP once; give over 2 minutes Route: IVP; Site: left pf1 antecubital; 10/09 00:30 Follow up: Response: No adverse reaction; Marked relief of symptoms pf1 Disposition Summary: 10/09/23 00:16 Discharge Ordered Notes: Location: Home cp Problem: new cp Symptoms: have improved cp Condition: Stable cp Diagnosis - Unspecified combined systolic (congestive) and diastolic (congestive) heart failure cp - Shortness of breath cp Followup: cp - With: Private Physician - When: 2 - 3 days - Reason: Recheck today's complaints Discharge Instructions: - Discharge Summary Sheet cp - Heart Failure, Diagnosis cp - Shortness of Breath, Adult cp - Aspirin and Your Heart cp Forms: - Medication Reconciliation Form cp - Thank You Letter cp - Antibiotic Education cp - Prescription Opioid Use cp - Patient Portal Instructions cp - Leadership Thank You Letter cp Prescriptions: - furosemide 40 mg Oral tablet - take 1 tablet ORAL route once daily as needed for weight gain; 20 tablet; cp Refills: 0, Product Selection Permitted Signatures: Dispatcher [facility] Sunitha Mason RN RN kl Page, Corey, PA PA cp Finley, Pamala, RN RN pf1 Corrections: (The following items were deleted from the chart) 10/08 23:03 23:01 Chest Single View+RAD.RAD.BRZ ordered. EDMS EDMS 23: 23:01 BASIC METABOLIC PANEL+C.LAB.BRZ ordered. EDMS EDMS 23: 23:01 CBC+H.LAB.BRZ ordered. EDMS EDMS 23: 23:01 MAGNESIUM+C.LAB.BRZ ordered. EDMS EDMS 23: 23:01 PROBNP+C.LAB.BRZ ordered. EDMS EDMS 23: 23:01 Troponin High Sensitivity+C.LAB.BRZ ordered. EDMS EDMS 23: 23:01 Influenza Screen (A \T\ B)+BA.LAB.BRZ ordered. EDMS EDMS
[2023-10-09 04:01] VITALS: BP 144/72; TEMP 98; O2SAT 98
--- NOTE | 2023-10-10 12:44 | RAD REPORT ---
EXAM DESCRIPTION: RAD - Chest Single View - 10/08/2023 10:48 pm CLINICAL HISTORY: 57-year-old male with breathing difficulty. TECHNIQUE: Single view, AP portable chest was obtained. COMPARISON: 12/05/2022. FINDINGS: Unremarkable cardiac and mediastinal silhouette. Heart size is normal. Mild interstitial p rominence may be secondary to mild pulmonary vascular congestion versus viral/atypical infectious pro cess. Lungs are otherwise clear without focal opacity, pneumothorax or pleural effusions. The visualized bones are within normal limits. IMPRESSION: No acute cardiopulmonary abnormalities. Electronically signed by: Anita Michele MD 10/08/2023 11:05 PM HIDE AND SKIN COLERER Due to temporary technical issues with the PACS/Fluency reporting system, reports are being signed by the in house radiologist without review as a courtesy to ensure prompt reporting. The interpreting r adiologist is fully responsible for the content of the report.
--- NOTE | 2023-10-10 17:26 | EKG ---
Test Date: 2023-10-08 Test Time: 22:11:26 City Driver: MOHIT MEASUREMENT RESULTS: Intervals: Rate: 80 WY: 164 QRSD: 102 QT: 408 QTc: 470 [place]: P: 61 W[place]: 164 QRS: -36 T: 37 INTERPRETIVE STATEMENTS: Normal sinus rhythm Right atrial enlargement Left axis deviation Inferior infarct, age undetermined Abnormal ECG Compared to ECG 12/05/2022 00:44:32 Ventricular premature complex(es) no longer present Myocardial infarct finding still present Electronically Signed On 10-10-23 17:21:44 VALET SERVICE ATTENDANT by Bryan Dejesus
== END 2023-10-09 00:47 | disposition home or self-care (01) ==
LOC: ER 20:45
DX: I50.40 Unspecified combined systolic (congestive) and diastolic (congestive) heart failure (principal); Z11.52 Encounter for screening for COVID-19
CPT/HCPCS: 36415; 71045; 80048; 83735; 83880; 84484; 85025; 87804; 87811; 93005; 96374; 99284

== ENCOUNTER 2023-12-04 12:19 | Inpatient (IN) | payer OTHER ==
--- OUTSIDE RECORDS SUMMARY | 2023-12-04 12:23 | XMS REPORT | Continuity of Care Document ---
Author Name Unknown Address [address] [place] [address] [phone] [facility] [address] [place] [address] Care Team Providers Care Tongue Presser Name Role Phone Unavailable Unavailable Unavailable Encounters Start Date/Time End Date/Time Encounter Type Admission Type Attending Clinicians Care Facility Care Department Encounter ID Source 2022-12-06 11:44:19 2022-12-06 11:44:19 Outpatient [facility] [id number]
--- NOTE | 2023-12-04 13:24 | RAD REPORT ---
EXAM DESCRIPTION: RAD - Chest Single View - 12/04/2023 1:19 pm CLINICAL HISTORY: shortness of breath COMPARISON: <Comparisons> FINDINGS: Lines: None. Lungs: Diffuse prominence of the pulmonary interstitium. Pleural: Small pleural effusions difficult to exclude. Cardiac: Cardiomegaly. Mediastinum: Within normal limits. Bones: No acute fractures. Other: None IMPRESSION: Mild pulmonary edema.
[2023-12-04 13:33] LABS: Absolute Lymphocytes (CBC) 1.2 K/uL (0.7-4.9); Lymphocytes % 13.8 % (15.3-44.8); MCV 73.7 fL (80-100); Platelets 234 thou/uL (152-406); RBC Red Blood Cell Count 4.88 M/uL (4.33-5.43)
[2023-12-04 13:50] LABS: Albumin 3.1 g/dL (3.4-5.0); Bilirubin Direct 0.4 mg/dL (0-0.2); Bilirubin Indirect, Calculated 0.6 mg/dL (0.2-0.8); Magnesium 2.1 mg/dL (1.6-2.4); Protein, Total 7.4 g/dL (6.4-8.2); Troponin High Sensitivity 35.8 pg/mL (<58.9)
--- NOTE | 2023-12-04 14:01 | ER ---
Nurse's Notes [facility] Name: Lb Epstein Age: 58 yrs Sex: Male : 1965 Arrival Date: 12/04/2023 Time: 12:19 Bed 16 Private MD: Diagnosis: Heart failure, unspecified;Acute pulmonary edema;Pedal Edema;Tachypnea, not elsewhere classified;Tachycardia, unspecified Presentation: 12/04 12:43 Chief complaint: Patient states: SOB for 2-3 weeks. Out of CHF medicines for 1 month. ll1 No fever. BLE swelling and trouble sleeping laying flat. Coronavirus screen: Vaccine status: Patient reports receiving the 2nd dose of the covid vaccine. Client denies travel out of the [place] in the last 14 days. difficulty breathing, fatigue, shortness of breath, Client presents with at least one sign or symptom that may indicate coronavirus-19. Standard/surgical mask placed on the client. Ebola Screen: Patient denies travel to an Ebola-affected area in the 21 days before illness onset. Initial Sepsis Screen: Does the patient meet any 2 criteria? No. Patient's initial sepsis screen is negative. Does the patient have a suspected source of infection? No. Patient's initial sepsis screen is negative. Risk Assessment: Do you want to hurt yourself or someone else? Patient reports no desire to harm self or others. Onset of symptoms was November 14, 2023. 12:43 Method Of Arrival: Wheelchair ll1 12:43 Acuity: JAVON 3 ll1 Historical: - Allergies: 12:42 Morphine; headaches; ll1 - PMHx: 12:42 Congestive heart failure; Hypertensive disorder; OR; ll1 - PSHx: 12:42 Cardiac stents x2; ll1 - Immunization history:: Adult Immunizations up to date. - Social history:: Smoking status: Patient reports the use of cigarette tobacco products, smokes one-half pack cigarettes per day. Screenin:26 [facility] ED Fall Risk Assessment (Adult) History of falling in the last 3 months, kc6 including since admission No falls in past 3 months (0 pts) Confusion or Disorientation No (0 pts) Intoxicated or Sedated No (0 pts) Impaired Gait No (0 pts) Mobility Assist Device Used No (0 pt) Altered Elimination No (0 pt) Score/Fall Risk Level 0 - 2 = Low Risk. Abuse screen: Denies threats or abuse. Denies injuries from another. Nutritional screening: No deficits noted. Tuberculosis screening: No symptoms or risk factors identified. Assessment: 13:27 General: Appears in no apparent distress. uncomfortable, well groomed, well developed, kc6 Behavior is calm, cooperative, appropriate for age. Neuro: Level of Consciousness is awake, alert, obeys commands, Oriented to person, place, time, situation, Appropriate for age. Cardiovascular: Denies chest pain, Heart tones S1 S2 present Capillary refill < 3 seconds Rhythm is sinus tachycardia. Respiratory: Reports shortness of breath at rest on exertion Airway is patent Trachea midline Respiratory effort is even, labored, with nasal flaring, Respiratory pattern is symmetrical, tachypnea Breath sounds are clear bilaterally. GI: No signs and/or symptoms were reported involving the gastrointestinal system. : No signs and/or symptoms were reported regarding the genitourinary system. EENT: No signs and/or symptoms were reported regarding the EENT system. Derm: No signs and/or symptoms reported regarding the dermatologic system. Skin is intact, is healthy with good turgor, Skin is pink, warm \T\ dry. Musculoskeletal: No signs and/or symptoms reported regarding the musculoskeletal system. Circulation, motion, and sensation intact. Capillary refill < 3 seconds, Range of motion: intact in all extremities. 15:07 Reassessment: RECD REPORT FROM [facility]. 58YO WM P/W SOB, ADMIT FOR CHF EXACERBATION. bp Vital Signs: 12:43 BP 142 / 92; Pulse 114; Resp 22; Temp 97.9; Pulse Ox 100% on R/A; Weight 96.62 kg; ll1 Height 6 ft. 1 in. ; Pain 9/10; 13:54 BP 140 / 109; Pulse 109; Resp 25 S; Pulse Ox 98% on R/A; kc6 12:43 Body Mass Index 28.10 (96.62 kg, 185.42 cm) ll1 12:43 Pain Scale: Adult ll1 ED Course: 12:20 Patient arrived in ED. rg4 12:39 Christopher Baum DO is Attending Physician. ms3 12:42 Arm band placed on. ll1 12:44 Triage completed. ll1 13:10 Ayala, Estephania, RN is Primary Nurse. kc 13:20 XRAY Chest (1 view) In Process Unspecified. EDMS 13:26 Patient has correct armband on for positive identification. Bed in low position. Call kc6 light in reach. Side rails up X 1. Client placed on continuous cardiac and pulse oximetry monitoring. NIBP monitoring applied. air sampling and monitoring on. 13:26 Missed attempt(s): 20 gauge in right antecubital area. Inserted saline lock: 20 gauge kc6 in left antecubital area, using aseptic technique. Blood collected. Patient maintains SpO2 saturation greater than 95% on room air. 13:58 Kala Spain MD is Hospitalizing Provider. ms3 Administered Medications: 13:03 CANCELLED (Physician Discretion): [id number] mg IVP once; give over 2 minutes ms3 14:17 Drug: Furosemide IVP 40 mg IVP once; give over 2 minutes Route: IVP; Site: left kc6 antecubital; Outcome: 14:00 Decision to Hospitalize by Provider. ms3 18:39 Patient left the ED. bp Signatures: Dispatcher [employer] EDMS Shruthi Newman rg4 Kartik Benítez, RN RN bp Miko Mason RN RN ll1 Christopher Baum, DO ms3 Estephania Ayala, RN RN kc6
--- NOTE | 2023-12-04 14:01 | EDPHYS ---
Physician Documentation [facility] Name: Lb Epstein Age: 58 yrs Sex: Male : 1965 Arrival Date: 12/04/2023 Time: 12:19 Bed 16 Private MD: ED Physician Christopher Baum HPI: 12/04 13:03 This 58 yrs old Male presents to ER via Wheelchair with complaints of Breathing ms3 Difficulty. 13:03 58-year-old male with past medical history of congestive heart failure, hypertension, ms3 myocardial infarction presents to the emergency department for shortness of breath that has been ongoing for 2 to 3 weeks and progressively becoming worse. Patient states he has bilateral foot pain that is a 9/10 due to swelling. Patient states he has been out of his medications for 1 month. Patient endorses orthopnea, and shortness of breath with exertion. Patient denies alleviating factors. Patient endorses smoking half a pack of cigarettes per day. Historical: - Allergies: 12:42 Morphine; headaches; ll1 - PMHx: 12:42 Congestive heart failure; Hypertensive disorder; LA; ll1 - PSHx: 12:42 Cardiac stents x2; ll1 - Immunization history:: Adult Immunizations up to date. - Social history:: Smoking status: Patient reports the use of cigarette tobacco products, smokes one-half pack cigarettes per day. ROS: 13:03 Constitutional: Negative for fever, and chills. Neck: Negative for injury, pain, and ms3 swelling, Cardiovascular: Negative for chest pain, and palpitations. 13:03 MS/Extremity: Negative for injury and deformity, Skin: Negative for injury, rash, and discoloration, 13:03 Respiratory: Positive for dyspnea on exertion, orthopnea, shortness of breath, at rest. 13:03 All other systems are negative, Exam: 13:03 Constitutional: This is a well developed, well nourished patient who is awake, alert, ms3 and in no acute distress. Head/Face: Normocephalic, atraumatic. Chest/axilla: Normal chest wall appearance and motion. Nontender with no deformity. Cardiovascular: Regular rate and rhythm with a normal S1 and S2. No gallops, murmurs, or rubs. Normal PMI, no JVD. No pulse deficits. Abdomen/GI: Soft, non-tender, with normal bowel sounds. No distension or tympany. No guarding or rebound. No evidence of tenderness throughout. 13:03 Respiratory: mild respiratory distress is noted, Respirations: normal, Breath sounds: rales, that are mild, are heard in the left posterior lower lobe and right posterior lower lobe, 14:02 ECG was reviewed by the Attending Physician. ms3 Vital Signs: 12:43 BP 142 / 92; Pulse 114; Resp 22; Temp 97.9; Pulse Ox 100% on R/A; Weight 96.62 kg; ll1 Height 6 ft. 1 in. ; Pain 9/10; 13:54 BP 140 / 109; Pulse 109; Resp 25 S; Pulse Ox 98% on R/A; kc6 12:43 Body Mass Index 28.10 (96.62 kg, 185.42 cm) ll1 12:43 Pain Scale: Adult ll1 MDM: 13:02 Patient medically screened. ms3 13:03 Differential diagnosis: CHF exacerbation, Chronic Obstructive Pulmonary Disease ms3 pneumonia. 14:00 Data reviewed: vital signs, nurses notes, lab test result(s), radiologic studies, and ms3 as a result, I will admit patient. Consideration of Admission/Observation Patient was admitted/placed on observation. Management of patient was discussed with the following: Hospitalist: Dr Spain. I considered the following discharge prescriptions or medication management in the emergency department Medications were administered in the Emergency Department. See MAR. Independent interpretation of the following test(s) in the Emergency Department EKG: See my EKG interpretation above X-Ray: My interpretation is CXR image reviewed by me reveals cardiomegaly and pulmonary edema. Care significantly affected by the following chronic conditions: Hypertension, Congestive Heart Failure. Counseling: I had a detailed discussion with the patient and/or guardian regarding the historical points, exam findings, and any diagnostic results supporting the discharge/admit diagnosis, lab results, radiology results, the need for further work-up and treatment in the hospital. ED course: Discussed necessity for admission with patient. Patient understands agrees with plan. All questions were answered. . 12/04 13:02 Order name: Basic Metabolic Panel; Complete Time: 13:55 ms3 12/04 13:02 Order name: CBC with Diff; Complete Time: 13:46 ms3 12/04 13:02 Order name: LFT's; Complete Time: 13:55 ms3 12/04 13:02 Order name: Magnesium; Complete Time: 13:55 ms3 12/04 13:02 Order name: NT PRO-BNP; Complete Time: 13:55 ms3 12/04 13:02 Order name: Troponin HS; Complete Time: 13:55 ms3 12/04 15:15 Order name: T4 Free EDMS 12/04 15:15 Order name: Thyroid Stimulating Hormone EDMS 12/04 15:15 Order name: Basic Metabolic Panel EDMS 12/04 15:15 Order name: Basic Metabolic Panel EDMS 12/04 15:15 Order name: Basic Metabolic Panel EDMS 12/04 15:15 Order name: Basic Metabolic Panel EDMS 12/04 15:15 Order name: Basic Metabolic Panel EDMS 12/04 15:15 Order name: Basic Metabolic Panel EDMS 12/04 15:15 Order name: Basic Metabolic Panel EDMS 12/04 15:15 Order name: Basic Metabolic Panel EDMS 12/04 15:15 Order name: CBC with Automated Diff EDMS 12/04 15:15 Order name: CBC with Automated Diff EDMS 12/04 15:15 Order name: CBC with Automated Diff EDMS 12/04 15:15 Order name: CBC with Automated Diff EDMS 12/04 15:15 Order name: CBC with Automated Diff EDMS 12/04 15:15 Order name: CBC with Automated Diff EDMS 12/04 15:15 Order name: CBC with Automated Diff EDMS 12/04 15:15 Order name: CBC with Automated Diff EDMS 12/04 15:15 Order name: Magnesium EDMS 12/04 15:15 Order name: Magnesium EDMS 12/04 15:15 Order name: Magnesium EDMS 12/04 15:15 Order name: Magnesium EDMS 12/04 15:15 Order name: Magnesium EDMS 12/04 15:15 Order name: Magnesium EDMS 12/04 15:15 Order name: Magnesium EDMS 12/04 15:15 Order name: Magnesium EDMS 12/04 15:15 Order name: Phosphorus EDMS 12/04 15:15 Order name: Phosphorus EDMS 12/04 15:15 Order name: Phosphorus EDMS 12/04 15:15 Order name: Phosphorus EDMS 12/04 15:15 Order name: Phosphorus EDMS 12/04 15:15 Order name: Phosphorus EDMS 12/04 15:15 Order name: Phosphorus EDMS 12/04 15:15 Order name: Phosphorus EDMS 12/04 15:15 Order name: Troponin High Sensitivity EDMS 12/04 15:15 Order name: Troponin High Sensitivity EDMS 12/04 15:15 Order name: Troponin High Sensitivity EDMS 12/04 16:53 Order name: Glucose, Ancillary Testing EDMS 12/04 13:02 Order name: XRAY Chest (1 view); Complete Time: 13:46 ms3 12/04 15:16 Order name: Echo with Doppler EDMS 12/04 13:02 Order name: EKG; Complete Time: 13:03 ms3 12/04 13:02 Order name: Cardiac monitoring; Complete Time: 13:26 ms3 12/04 13:02 Order name: EKG - Nurse/Tech; Complete Time: 13:26 ms3 12/04 13:02 Order name: IV Saline Lock; Complete Time: 13:26 ms3 12/04 13:02 Order name: Labs collected and sent; Complete Time: 13:26 ms3 12/04 13:02 Order name: O2 Per Protocol; Complete Time: 13:11 ms3 12/04 13:02 Order name: O2 Sat Monitoring; Complete Time: 13:11 ms3 EC:02 Rate is 110 beats/min. Rhythm is regular. QRS [place] is Normal. [place] interval is normal. ms3 QRS interval is normal. Clinical impression: Sinus tachycardia. Interpreted by me. Reviewed by me. Administered Medications: 13:03 CANCELLED (Physician Discretion): [id number] mg IVP once; give over 2 minutes ms3 14:17 Drug: Furosemide IVP 40 mg IVP once; give over 2 minutes Route: IVP; Site: left kc6 antecubital; Disposition Summary: 12/04/23 14:00 Hospitalization Ordered Notes: Hospitalization Status: Inpatient Admission ms3 Provider: Kala Spain ms3 Location: Telemetry/MedSurg (Inpatient) ms3 Condition: Stable ms3 Problem: new ms3 Symptoms: are unchanged ms3 Bed/Room Type: Standard ms3 Room Assignment: 211(12/04/23 15:51) bd Diagnosis - Heart failure, unspecified ms3 - Acute pulmonary edema ms3 - Pedal Edema ms3 - Tachypnea, not elsewhere classified ms3 - Tachycardia, unspecified ms3 Forms: - Medication Reconciliation Form ms3 - SBAR form ms3 - Leadership Thank You Letter ms3 Signatures: Dispatcher [employer] EDJaja Cooper Lynsay, RN RN ll1 Christopher Baum DO DO ms3 Estephania Ayala RN RN kc6 Corrections: (The following items were deleted from the chart) 13:03 13:02 Furosemide IVP 40 mg IVP once; give over 2 minutes ordered. ms3 ms3 15:51 14:00 ms3 bd
[2023-12-04] MEDS ORDERED: FUROSEMIDE 40 MG/4 ML VIAL ONE (14:11)
[2023-12-04] MEDS ORDERED: ACETAMINOPHEN 500 MG TAB PO PRN (15:08)
--- NOTE | 2023-12-04 15:33 | P.HP ---
Certification for Inpatient Patient admitted to: Observation With expected LOS: <2 Midnights Patient will require the following post-hospital care: None Practitioner: I am a practitioner with admitting privileges, knowledge of patient current condition, hospital course, and medical plan of care. Services: Services provided to patient in accordance with Admission requirements found in Title 42 Section 412.3 of the Code of Federal Regulations Patient History Date of Service: 12/04/23 Reason for admission: SOB 2/2 fluid volume overload History of Present Illness: Lb Epstein is a 58 year old male with past medical history of hypertension, diabetes mellitus type 2, CAD status post MN requiring 2 stents, HFrEF 25% is to the ED with complaints of shortness of breath for the last 2 to 3 weeks due to losing insurance coverage and running out of medication. His associated symptoms are cough, dyspnea on exertion, weakness, and bilateral lower extremity 3+ pitting edema. He reports losing insurance coverage and medications last year as well. On examination Lb was experiencing pain to his bilateral 3+ pitting edema. Lasix has been started in the ED and UOP has been reported at 1800 ml. He presents hypertensive and tachycardic, will monitor closely during diuresis. Initial vitals BP 142 / 92; Pulse 114; Resp 22; Temp 97.9; Pulse Ox 100% on R/A. Laboratory evaluations BNP 2924, troponin 35.8, sodium 137, potassium 4.0, BUN/creatinine 16/1.37, GFR 60, serum glucose 210. Chest x-ray reports "Mild pulmonary edema." EKG "Rate is 110 beats/min. Rhythm is regular. QRS [place] is Normal. [place] interval is normal. QRS interval is normal. Clinical impression: Sinus tachycardia." Lb will be admitted to hospitalist service for further evaluation and treatment of fluid volume overload. Allergies No Known Allergies Allergy (Verified 12/05/22 19:56) Home Medications: Aspirin [Aspirin EC 81 MG] 81 mg PO DAILY #30 tab 12/06/22 Atorvastatin Calcium [Lipitor] 40 mg PO BEDTIME #30 tab 12/06/22 Furosemide [Lasix] 40 mg PO DAILY #30 tab 12/06/22 carvediloL [Coreg*] 3.125 mg PO BID 6AM 6PM #60 tab 12/06/22 lisinopriL [Lisinopril] 5 mg PO DAILY #30 tab 12/06/22 - Past Medical/Surgical History Diabetic: No -: CAD/MN -: Hypertension -: Systolic CHF -: Stents Psychosocial/ Personal History: Patient is homeless. - Social History Alcohol use: No CD- Drugs: No Caffeine use: Yes Review of Systems Eyes: Unremarkable ENT: Unremarkable Respiratory: Cough, Shortness of Breath Cardiovascular: Edema (bilateral lower extremities) Gastrointestinal: Unremarkable Genitourinary: Unremarkable Musculoskeletal: Unremarkable Integumentary: Unremarkable Neurological: Unremarkable Physical Examination - Physical Exam General: Alert, In no apparent distress, Oriented x3 HEENT: Atraumatic, Normocephalic, PERRLA Neck: Supple, 2+ carotid pulse no bruit, JVD not distended Respiratory: Normal air movement, Expiratory wheezes Cardiovascular: Normal S1 S2, Edema (bilateral lower extremities), Irregular heart rate/rhythm (tachycardic), Systolic murmur Capillary refill: <2 Seconds Gastrointestinal: Soft and benign, Distended Musculoskeletal: No clubbing, Swelling Integumentary: No rashes, No breakdown, No significant lesion Neurological: Normal speech, Normal strength at 5/5 x4 extr, Normal tone - Studies Laboratory Data (last 24 hrs) 12/04/23 12/04/23 13:24 13:24 WBC 9.00 Hgb 11.3 L Hct 36.0 L Plt Count 234 Sodium 137 Potassium 4.0 BUN 16 Creatinine 1.37 H Glucose 210 H Magnesium 2.1 Total Bilirubin 1.0 AST 17 ALT 18 Alkaline Phosphatase 170 H Assessment and Plan - Plan Assessment and plan Shortness of breath secondary to fluid volume overload HFrEF 25% CAD s/p MN and stents x2 HTN noncompliant BNP 2924, troponin 35.8 serial pending Echo ordered, last ECHO on record is Oct 2022 showing EF of 25% Lasix BID daily weight and strict I and O Consult Dr. Dejesus- recommendations appreciated Hydralazine PRN Restart home medications once available HUNG BUN/Creatinine 16/1.37, GFR 60 No IVF at this time Continue to monitor close while diuresing Diabetes mellitus noncompliant Serum glucose 210 Check with sliding scale insulin unknown medication management at this time A1C pending Smoking and drug abuse Cessation education offered He reports cutting back to 1/2 pack of cigarettes daily DVT ppx heparin Full code LOS 2 days Discharge Plan: Home Plan to discharge in: 48 Hours - Advance Directives Does patient have a Living Will: No Does patient have a Durable POA for Healthcare: No Time Spent Managing Pts Care (In Minutes): 55
[2023-12-04] MEDS ORDERED: HYDRALAZINE HCL 20 MG/ML VIAL IV PRN (15:36)
[2023-12-04] MEDS: INSULIN REGULAR (HUMAN) 100 UNIT/ML SQ SCH ×2 (16:30→20:29)
[2023-12-04] MEDS: ACETAMINOPHEN 325 MG TABLET PO PRN (19:27)
[2023-12-04] MEDS: FUROSEMIDE 40 MG/4 ML VIAL IV SCH (20:22)
[2023-12-04] MEDS: HEPARIN 5000 UNIT/ML 1 ML VIAL SQ SCH (22:33)
[2023-12-04] MEDS: Oxycodone HCl/Acetaminophen 5/325 MG TAB PO PRN (22:39)
[2023-12-05] MEDS: HEPARIN 5000 UNIT/ML 1 ML VIAL SQ SCH ×3 (01:00→17:02)
[2023-12-05 02:23] LABS: Absolute Lymphocytes (CBC) 1.7 K/uL (0.7-4.9); Lymphocytes % 19.7 % (15.3-44.8); MCV 73.5 fL (80-100); MPV 8.3 fL (7.6-11.3); Platelets 208 thou/uL (152-406)
[2023-12-05 03:26] LABS: Phosphorus 4.4 mg/dL (2.5-4.9); Thyroid Stimulating Hormone 2.08 uIU/mL (0.358-3.740); Troponin High Sensitivity 36.1 pg/mL (<58.9)
[2023-12-05 03:27] LABS: Magnesium 2.1 mg/dL (1.6-2.4)
[2023-12-05] MEDS: INSULIN REGULAR (HUMAN) 100 UNIT/ML SQ SCH ×4 (07:23→20:41)
[2023-12-05] MEDS: FUROSEMIDE 40 MG/4 ML VIAL IV SCH ×2 (07:48→17:02)
[2023-12-05] MEDS: Oxycodone HCl/Acetaminophen 5/325 MG TAB PO PRN ×3 (08:00→20:40)
--- NOTE | 2023-12-05 08:46 | P.PN ---
Date of Service: 12/05/23 Subjective Awake and comfortable this morning Still coughing but much improved Decrease in bilateral lower extremity pitting edema Plan to continue diuresis, with appropriate urine output recording Social work provided resources ROS 10 point ROS as noted above, otherwise negative Physical Exam General: Alert, In no apparent distress, Oriented x3 HEENT: Atraumatic, Normocephalic, PERRLA Neck: Supple, 2+ carotid pulse no bruit, JVD not distended Respiratory: Normal air movement, Bilateral clear lungs sounds, coughing Cardiovascular: Normal S1 S2, Edema (bilateral lower extremities), Irregular heart rate/rhythm (tachycardic), Systolic murmur Capillary refill: <2 Seconds Gastrointestinal: Soft and benign, Distended Musculoskeletal: No clubbing, Swelling- improved Integumentary: No rashes, No breakdown, No significant lesion Neurological: Normal speech, Normal strength at 5/5 x4 extr, Normal tone Vitals Reviewed Problem list Shortness of breath secondary to fluid volume overload HFrEF 25% CAD s/p PR and stents x2 HTN noncompliant HUNG Diabetes mellitus noncompliant Smoking and drug abuse Assessment and Plan Shortness of breath secondary to fluid volume overload HFrEF 25% CAD s/p PR and stents x2 HTN noncompliant BNP 2924, troponin 35.8/32.7/36.1 Echo ordered results pending, last ECHO on record is Oct 2022 showing EF of 25% continue Lasix BID daily weight and strict I and O Consult Dr. Dejesus- recommendations appreciated Hydralazine PRN Restart home medications: lisinopril, coreg, and atorvastatin (12/05) HUNG BUN/Creatinine 20/1.6, GFR 49- bump from lasix use No IVF at this time Continue to monitor close while diuresing Diabetes mellitus noncompliant Serum glucose 121 accuCheck with sliding scale insulin- better glucose control today unknown medication management at this time A1C 7.5 Smoking and drug abuse Cessation education offered He reports cutting back to 1/2 pack of cigarettes daily DVT ppx heparin Full code LOS 2 days Discharge Plan: Home Plan to discharge in: 48 Hours Time Spent Managing Pts Care (In Minutes): 22
[2023-12-05] MEDS: ASPIRIN EC 81 MG TAB PO SCH (08:59)
[2023-12-05] MEDS: lisinopriL 5 MG TAB PO SCH (08:59)
[2023-12-05] MEDS: carvediloL 3.125 MG TAB PO SCH (17:01)
--- NOTE | 2023-12-05 17:36 | EKG ---
Test Date: 2023-12-04 Test Time: 13:14:23 Sales Engineer Account Manager: AYO MEASUREMENT RESULTS: Intervals: Rate: 110 MI: 164 QRSD: 96 QT: 348 QTc: 470 [place]: P: 56 MI: 164 QRS: 27 T: 20 INTERPRETIVE STATEMENTS: Sinus tachycardia with occasional and consecutive premature ventricular complexes Right atrial enlargement Inferior infarct, age undetermined Anterior infarct, age undetermined Abnormal ECG Compared to ECG 10/08/2023 22:11:26 Ventricular premature complex(es) now present Sinus rhythm no longer present Left-axis deviation no longer present Myocardial infarct finding still present Electronically Signed On 12-05-23 17:34:05 CLINICAL SUPPORT TECH by Bryan Dejesus
[2023-12-05] MEDS: ATORVASTATIN 40 MG TAB PO SCH (20:41)
[2023-12-06] MEDS: HEPARIN 5000 UNIT/ML 1 ML VIAL SQ SCH ×3 (00:31→17:00)
[2023-12-06] MEDS: Oxycodone HCl/Acetaminophen 5/325 MG TAB PO PRN ×3 (00:31→18:46)
[2023-12-06 03:26] LABS: Absolute Lymphocytes (CBC) 1.8 K/uL (0.7-4.9); Hematocrit 36.5 % (39.6-49.0); MCV 73.4 fL (80-100); MPV 8.4 fL (7.6-11.3); Platelets 236 thou/uL (152-406); RBC Red Blood Cell Count 4.97 M/uL (4.33-5.43)
[2023-12-06 03:45] LABS: Magnesium 2.1 mg/dL (1.6-2.4); Phosphorus 4.3 mg/dL (2.5-4.9); Potassium 3.8 mEq/L (3.5-5.1)
[2023-12-06] MEDS: carvediloL 3.125 MG TAB PO SCH ×2 (05:56→18:46)
--- NOTE | 2023-12-06 07:04 | ECHO ---
HEIGHT: 6 ft 1 in WEIGHT: 213 lb 13.574 oz DATE OF STUDY: 12/05/[address]: Patience Irene NP 2-DIMENSIONAL: YES M.MODE: YES DOPPLER: YES COLOR FLOW: YES TDS: PORTABLE: YES DEFINITY: BUBBLE STUDY: DIAGNOSIS: FLUID VOLUME OVERLOAD CARDIAC HISTORY: CATHERIZATION: YES SURGERY: NO PROSTHETIC VALVE: NO PACEMAKER: NO MEASUREMENTS (cm) DIASTOLIC (NORMALS) SYSTOLIC (NORMALS) IVSd 1.1 (0.6-1.2) LA Diam 3.6 (1.9-4.0) LVEF 25% LVIDd 6.5 (3.5-5.7) LVIDs 5.7 (2.0-3.5) %FS 12% LVPWd 1.2 (0.6-1.2) Ao Diam 2.8 (2.0-3.7) 2 DIMENSIONAL ASSESSMENT: RIGHT ATRIUM: NORMAL LEFT ATRIUM: NORMAL RIGHT VENTRICLE: NORMAL LEFT VENTRICLE: DILATED LEFT VENTRICLE TRICUSPID VALVE: MODERATE TRICUSPID REGURGITATION MITRAL VALVE: MODERATE MITRAL REGURGITATION PULMONIC VALVE: NORMAL AORTIC VALVE: NORMAL PERICARDIAL EFFUSION: NONE AORTIC ROOT: NORMAL LEFT VENTRICULAR WALL MOTION: SEVERE GLOBAL HYPOKINESIS DOPPLER/COLOR FLOW: SEE BELOW COMMENTS: 1. SEVERELY DEPRESSED LEFT VENTRICULAR EJECTION FRACTION 20-25% 2. SEVERE GLOBAL HYPOKINESIS 3. MODERATE MITRAL REGURGITATION 4. MODERATE TO SEVERE TRICUSPID REGURGITATION 5. 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 SEVERE DIASTOLIC DYSFUNCTION TECHNOLOGIST: BONY FOX
[2023-12-06] MEDS: INSULIN REGULAR (HUMAN) 100 UNIT/ML SQ SCH ×4 (07:19→21:00)
[2023-12-06] MEDS: FUROSEMIDE 40 MG/4 ML VIAL IV SCH (08:33)
[2023-12-06] MEDS: lisinopriL 5 MG TAB PO SCH (08:33)
[2023-12-06] MEDS: ASPIRIN EC 81 MG TAB PO SCH (08:33)
[2023-12-06] MEDS ORDERED: POTASSIUM CL SA 10 MEQ TAB PO ONE (09:00)
[2023-12-06] MEDS: FUROSEMIDE 100 MG in NA CHLORIDE 0.9% 90 ML IV SCH ×2 (14:00→23:30)
[2023-12-06] MEDS: SMZ./TMP. 800/160 MG TABLET PO SCH ×2 (14:00→21:15)
--- NOTE | 2023-12-06 20:36 | P.PN ---
Date of Service: 12/06/23 Subjective Awake, alert, and oriented x3 no acute distress UOP at 2750 OVN with increased swelling and red skin revealing venous insuff iciency ROS 10 point ROS as noted above, otherwise negative Physical Exam General: Alert, In no apparent distress, Oriented x3 HEENT: Atraumatic, Normocephalic, PERRLA Neck: Supple, 2+ carotid pulse no bruit, JVD not distended Respiratory: Normal air movement, Bilateral clear lungs sounds, coughing Cardiovascular: Normal S1 S2, Edema (bilateral lower extremities), Irregular heart rate/rhythm (tachycardic), Systolic murmur Capillary refill: <2 Seconds Gastrointestinal: Soft and benign, Distended Musculoskeletal: No clubbing, Swelling- improved Integumentary: No rashes, No breakdown, No significant lesion Neurological: Normal speech, Normal strength at 5/5 x4 extr, Normal tone Vitals Reviewed Problem list Shortness of breath secondary to fluid volume overload HFrEF 25% CAD s/p [place] and stents x2 HTN noncompliant HUNG Diabetes mellitus noncompliant Smoking and drug abuse Infected cyst to right buttock (POA) Assessment and Plan Shortness of breath secondary to fluid volume overload HFrEF 25% CAD s/p [place] and stents x2 HTN noncompliant BNP 2924, troponin 35.8/32.7/36.1 Echo result as follows: 1. SEVERELY DEPRESSED LEFT VENTRICULAR EJECTION FRACTION 20-25% 2. SEVERE GLOBAL HYPOKINESIS 3. MODERATE MITRAL REGURGITATION 4. MODERATE TO SEVERE TRICUSPID REGURGITATION 5. 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 SEVERE DIASTOLIC DYSFUNCTION last ECHO on record is Oct 2022 showing EF of 25% Changed to Lasix drip daily weight and strict I and O- UOP [address] Dejesus- recommendations appreciated for heart failure medication management Hydralazine PRN Restart home medications: lisinopril, Asa, coreg, and atorvastatin (12/05) Infected cyst to right buttock (POA) Bactrim started HUNG BUN/Creatinine 23/1.59, GFR 50- now on lasix drip No IVF at this time Continue to monitor close while diuresing consult nephrology Diabetes mellitus noncompliant Serum glucose 187 accuCheck with sliding scale insulin- better glucose control today unknown medication management at this time A1C 7.5 Smoking and drug abuse Cessation education offered He reports cutting back to 1/2 pack of cigarettes daily DVT ppx heparin Full code LOS 2 days Discharge Plan: Home Plan to discharge in: 48 Hours Time Spent Managing Pts Care (In Minutes): 36
[2023-12-06] MEDS: ATORVASTATIN 40 MG TAB PO SCH (21:13)
[2023-12-06] MEDS ORDERED: FUROSEMIDE 40 MG/4 ML VIAL ONE (22:54)
[2023-12-06] MEDS ORDERED: FUROSEMIDE 20 MG/ 2ML VIAL ONE (22:54)
[2023-12-06] MEDS ORDERED: NA CHLORIDE 0.9% 100 ML ONE (22:55)
[2023-12-07] MEDS: HEPARIN 5000 UNIT/ML 1 ML VIAL SQ SCH ×3 (01:04→17:47)
[2023-12-07] MEDS: Oxycodone HCl/Acetaminophen 5/325 MG TAB PO PRN ×2 (01:04→17:50)
[2023-12-07 04:05] LABS: Absolute Lymphocytes (CBC) 1.9 K/uL (0.7-4.9); Hematocrit 38.5 % (39.6-49.0); Lymphocytes % 19.5 % (15.3-44.8); MPV 8.2 fL (7.6-11.3); Platelets 298 thou/uL (152-406); RBC Red Blood Cell Count 5.27 M/uL (4.33-5.43)
[2023-12-07 04:10] LABS: Magnesium 2.1 mg/dL (1.6-2.4); Potassium 3.7 mEq/L (3.5-5.1)
[2023-12-07] MEDS: carvediloL 3.125 MG TAB PO SCH ×2 (06:00→17:46)
[2023-12-07] MEDS: INSULIN REGULAR (HUMAN) 100 UNIT/ML SQ SCH ×4 (07:30→21:00)
[2023-12-07] MEDS: SMZ./TMP. 800/160 MG TABLET PO SCH (08:51)
[2023-12-07] MEDS: ASPIRIN EC 81 MG TAB PO SCH (08:51)
[2023-12-07] MEDS: FUROSEMIDE 100 MG in NA CHLORIDE 0.9% 90 ML IV SCH ×2 (10:22→20:00)
[2023-12-07] MEDS: AMOX/K CLAV 500 MG TAB PO SCH ×2 (10:22→20:08)
--- NOTE | 2023-12-07 10:39 | P.CNS ---
Date of Consult: 12/07/23 Reason for Consult: HUNG/ CKD Requesting Physician: shaina corrales Chief Complaint: SOB 2/2 fluid volume overload History of Present Illness: Lb Epstein is a 58 year old male with past medical history of hypertension, diabetes mellitus type 2, CAD status post [place] requiring 2 stents, HFrEF 25% is to the ED with complaints of shortness of breath for the last 2 to 3 weeks due to losing insurance coverage and running out of medication. His associated symptoms are cough, dyspnea on exertion, weakness, and bilateral lower extremity 3+ pitting edema. He reports losing insurance coverage and medications last year as well. On examination Lb was experiencing pain to his bilateral 3+ pitting edema. Lasix has been started in the ED and UOP has been reported at 1800 ml. He presents hypertensive and tachycardic, will monito r closely during diuresis. Initial vitals BP 142 / 92; Pulse 114; Resp 22; Temp 97.9; Pulse Ox 100% on R/A. Laboratory evaluations BNP 2924, troponin 35.8, sodium 137, potassium 4.0, BUN/creatinine 16/1.37, GFR 60, serum glucose 210. Chest x-ray reports "Mild pulmonary edema." EKG "Rate is 110 beats/min. Rhythm is regular. QRS [place] is Normal. [place] interval is normal. QRS interval is normal. Clinical impression: Sinus tachycardia." Lb will be admitted to hospitalist service for further evaluation and treatment of fluid volume overload. 13:03 This 58 yrs old Male presents to ER via Wheelchair with complaints of Breathing ms3 Difficulty. 13:03 58-year-old male with past medical history of congestive heart failure, hypertension, ms3 myocardial infarction presents to the emergency department for shortness of breath that has been ongoing for 2 to 3 weeks and progressively becoming worse. Patient states he has bilateral foot pain that is a 9/10 due to swelling. Patient states he has been out of his medications for 1 month. Patient endorses orthopnea, and shortness of breath with exertion. Patient denies alleviating factors. Patient endorses smoking half a pack of cigarettes per day. Allergies No Known Allergies Allergy (Verified 12/05/22 19:56) Home medications list reviewed: Yes Home Medications: Aspirin [Aspirin EC 81 MG] 81 mg PO DAILY #30 tab 12/06/22 Atorvastatin Calcium [Lipitor] 40 mg PO BEDTIME #30 tab 12/06/22 Furosemide [Lasix] 40 mg PO DAILY #30 tab 12/06/22 carvediloL [Coreg*] 3.125 mg PO BID 6AM 6PM #60 tab 12/06/22 lisinopriL [Lisinopril] 5 mg PO DAILY #30 tab 12/06/22 - Past Medical/Surgical History Diabetic: No -: CAD/MS -: Hypertension -: Systolic CHF -: CKD II (Dr. Blankenship/ Dr. Linn) -: Stents Psychosocial/ Personal History: Patient is homeless. - Social History Smoking Status: Current every day smoker Alcohol use: No CD- Drugs: No Caffeine use: Yes Place of Residence: Home Review of Systems 10-point ROS is otherwise unremarkable General: Malaise Respiratory: SOB with Excertion Cardiovascular: Edema Musculoskeletal: Leg Pain Physical Examination Temp Pulse Resp BP Pulse Ox 97.7 F 95 H 18 98/68 92 12/07/23 04:00 12/07/23 04:00 12/07/23 04:00 12/07/23 06:00 12/07/23 04:00 General: In no apparent distress, Oriented x3, Cooperative HEENT: Atraumatic Neck: Supple Respiratory: Clear to auscultation bilaterally, Normal air movement Cardiovascular: Regular rate/rhythm, Edema Gastrointestinal: Soft and benign, Non-distended Musculoskeletal: No clubbing, No contractures Integumentary: No rashes, No cyanosis, Skin lesion Neurological: Normal speech Blood work reviewed in the chart. Imagings Data: EXAM DESCRIPTION: RAD - Chest Single View - 12/04/2023 1:19 pm CLINICAL HISTORY: shortness of breath COMPARISON: <Comparisons> FINDINGS: Lines: None. Lungs: Diffuse prominence of the pulmonary interstitium. Pleural: Small pleural effusions difficult to exclude. Cardiac: Cardiomegaly. Mediastinum: Within normal limits. Bones: No acute fractures. Other: None IMPRESSION: Mild pulmonary edema. Conclusions/Impression: Stage I HUNG may be due to diuresis complicated by hypotension CKD II -No NSAIDs -Continue duresis -Blood pressure support as ordered Hyponatremia -Fluid restriction Hypokalemia -Replete prn HTN with CKD/ CHF complicated by hypotension Tachycardia -Start low dose Metoprolol -Start Midodrine TID Systolic CHF, A/C -Continue Lasix gtt DM II with Hyperglycemia -RISS Anemia in chronic illness Iron Deficiency 6.4% -Monitor H&H -Start daily IV iron Hospitalist and ER notes reviewed Case reviewed with hospitalist team Thank you kindly for the consultation
[2023-12-07 11:14] LABS: Ferritin 28.3 ng/mL (26-388)
--- NOTE | 2023-12-07 12:34 | P.PN ---
Date of Service: 12/07/23 Subjective Sitting on the side of the bed, AAO x3, still with 3+ pitting edema to bilateral lower extremities Blood pressure controlled, will stop Coreg for better diuresis per Dr. Dejesus Will continue lasix drip to ease the kidney's Low sodium diet with fluid restriction of 1200 ml ROS 10 point ROS as noted above, otherwise negative Physical Exam General: Alert, In no apparent distress, Oriented x3 HEENT: Atraumatic, Normocephalic, PERRLA Neck: Supple, 2+ carotid pulse no bruit, JVD not distended Respiratory: Normal air movement, Bilateral clear lungs sounds, coughing Cardiovascular: Normal S1 S2, Edema (bilateral lower extremities), Irregular heart rate/rhythm (tachycardic), Systolic murmur Capillary refill: <2 Seconds Gastrointestinal: Soft and benign, Distended Musculoskeletal: No clubbing, Swelling- improved Integumentary: No rashes, No breakdown, No significant lesion Neurological: Normal speech, Normal strength at 5/5 x4 extr, Normal tone Vitals Reviewed Problem list Shortness of breath secondary to fluid volume overload HFrEF 25% CAD s/p [place] and stents x2 HTN noncompliant CKD II with stage I HUNG Diabetes mellitus noncompliant Smoking and drug abuse Infected cyst to right buttock (POA) Assessment and Plan Shortness of breath secondary to fluid volume overload HFrEF 25% CAD s/p [place] and stents x2 HTN noncompliant BNP 2924, troponin 35.8/32.7/36.1 Echo result as follows: 1. SEVERELY DEPRESSED LEFT VENTRICULAR EJECTION FRACTION 20-25% 2. SEVERE GLOBAL HYPOKINESIS 3. MODERATE MITRAL REGURGITATION 4. MODERATE TO SEVERE TRICUSPID REGURGITATION 5. 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 SEVERE DIASTOLIC DYSFUNCTION last ECHO on record is Oct 2022 showing EF of 25% Continue with Lasix drip daily weight and strict I and O- UOP 4450 total on 12/[address] Dejesus- recommendations appreciated for heart failure medication management Hydralazine PRN Restart home medications: Asa, coreg, and atorvastatin (12/05), stopped lisinopril d/t kidney function Infected cyst to right buttock (POA) Augmentin Bactrim stopped d/t kidney function CKD II with stage I HUNG BUN/Creatinine 21/1.82, GFR 43- now on lasix drip No IVF at this time Continue to monitor close while diuresing consult nephrology- Dr. Blankenship Fluid restriction 1200ml daily Diabetes mellitus noncompliant Serum glucose 167 accuCheck with sliding scale insulin- better glucose control today unknown medication management at this time A1C 7.5 Smoking and drug abuse Cessation education offered He reports cutting back to 1/2 pack of cigarettes daily DVT ppx heparin Full code LOS 2 days Discharge Plan: Home Plan to discharge in: 48 Hours Time Spent Managing Pts Care (In Minutes): 36 <Patience Irene - Last Filed: 12/07/23 18:52> Patient seen and examined. Plan of care discussed with Ms. Irene. He is stable on room air Lower extremity edema is improving. Patient is on Lasix drip. Monitor BP closely. Nephrology to follow regarding increasing creatinine. <shaina corrales - Last Filed: 12/09/23 17:33>
--- NOTE | 2023-12-07 17:58 | CON ---
Date of Consultation: 12/07/2023 Reason For Consultation: CHF exacerbation. History Of Present Illness: A 58-year-old male, known to have a severe systolic heart failure, coron ricco artery disease status post stents placement in the past, dyslipidemia, hypertension, presented wi th significant shortness of breath, lower extremity edema, and orthopnea that is progressive. Denies having any chest pain. He claimed that he has a very low heart function for a long time after heart attack and he is to be on medications and he was stable, but he lost his insurance for sometime and he has not taken medicines for a long time and started to get the symptoms to get worse in a progress michael manner. On the bedside, he still has significant lower extremity edema and orthopnea. Past Medical History: As outlined above in the HPI. Medications: Refer reconciliation sheet for detailed list. Allergies: NO KNOWN DRUG ALLERGIES. Family History: No premature coronary artery disease or cancer. Social History: He is an active smoker half a pack per day. Does not drink or use any drugs. Review of Systems: All systems reviewed and they were negative except as mentioned in the HPI. Physical Examination: Vital Signs: Reviewed. Head and Neck: Pupils are equal, reactive to light. Intact eye movements. No JVD. No cervical lym phadenopathy. Neck is supple. Thyroid is not enlarged. Lungs: Clear to auscultation bilaterally. No rhonchi, rales, or crackles. No accessory muscle use. Heart: Regular rate and rhythm. No extra sounds. Abdomen: Soft, nontender. Bowel sounds positive. No organomegaly. No masses or hernia. No rigidi ty or rebound. Extremities: No clubbing or cyanosis. 3+ edema. Neurologic: Alert, awake, oriented x3. No acute focal deficits appreciated. Lymph nodes: No cervical or axillary lymphadenopathy. Investigations: BUN is 21, creatinine 1.82, and hemoglobin is 12.2. Assessment/recommendation: 1.Acute on chronic systolic heart failure exacerbation. Ejection fraction is in the low 20s. Stroud e Lasix to 80 mg IV q.12 hours instead of the Lasix drip and monitor BUN, creatinine, and electrolyte s closely. I would discontinue the carvedilol to allow better blood pressure for better diuresis. O nce he is euvolemic, then introduced beta naif and maybe low-dose MICHAEL inhibitor if the blood press ure tolerates. 2.Coronary artery disease history. No active chest pain and cardiac enzymes are negative. Can foll ow up on this matter on an outpatient basis. 3.Dyslipidemia. Recommend to continue Lipitor 40 mg q.h.s. SR/MODL Voice ID: [id number] Report ID: [id number]
[2023-12-07] MEDS ORDERED: POTASSIUM CL SA 10 MEQ TAB PO ONE (19:10)
[2023-12-07] MEDS ORDERED: MIDODRINE HCL 5 MG TABLET PO ONE (19:20)
[2023-12-07] MEDS: ATORVASTATIN 40 MG TAB PO SCH (20:08)
[2023-12-07] MEDS: METOPROLOL TAR 25 MG TAB PO SCH (20:09)
[2023-12-07] MEDS ORDERED: MIDODRINE HCL 5 MG TABLET PO SCH (21:00)
[2023-12-08] MEDS: HEPARIN 5000 UNIT/ML 1 ML VIAL SQ SCH ×3 (01:24→17:01)
[2023-12-08] MEDS: Oxycodone HCl/Acetaminophen 5/325 MG TAB PO PRN ×3 (01:30→20:54)
[2023-12-08 03:38] LABS: Absolute Lymphocytes (CBC) 1.5 K/uL (0.7-4.9); Lymphocytes % 16.7 % (15.3-44.8); MCV 72.3 fL (80-100); MPV 8.4 fL (7.6-11.3); Platelets 271 thou/uL (152-406); RBC Red Blood Cell Count 4.97 M/uL (4.33-5.43)
[2023-12-08 03:56] LABS: Albumin 3.2 g/dL (3.4-5.0); Bilirubin Direct 0.3 mg/dL (0-0.2); Bilirubin Indirect, Calculated 0.4 mg/dL (0.2-0.8); Bilirubin Total 0.7 mg/dL (0.2-1.0); Magnesium 2.1 mg/dL (1.6-2.4); Phosphorus 4.3 mg/dL (2.5-4.9); Potassium 3.7 mEq/L (3.5-5.1); Protein, Total 7.7 g/dL (6.4-8.2)
[2023-12-08] MEDS: ACETAMINOPHEN 325 MG TABLET PO PRN (04:34)
[2023-12-08] MEDS: MIDODRINE HCL 5 MG TABLET PO SCH ×4 (05:36→20:46)
[2023-12-08] MEDS: FUROSEMIDE 100 MG in NA CHLORIDE 0.9% 90 ML IV SCH (05:39)
[2023-12-08 06:30] LABS: Specific Gravity 1.023 (1.005-1.030); Urine Bacteria None Seen /HPF (<20); Urine Bilirubin NEGATIVE (Negative); Urine Blood Negative (Negative); Urine Clarity Clear (Clear); Urine Color Yellow (Yellow); Urine Glucose NEGATIVE (Negative); Urine Protein TRACE (Negative); Urine RBC <5 /HPF (None Seen); Urine Urobilinogen 1+ (Normal); Urine pH 6.5 (5.0-7.0)
[2023-12-08 06:46] LABS: Urine Protein/Creatinine Ratio 0.13 ratio (<0.15)
[2023-12-08 06:57] LABS: UR MICROALBUMIN 5.6 mg/dL (< 1.9)
[2023-12-08] MEDS: INSULIN REGULAR (HUMAN) 100 UNIT/ML SQ SCH ×4 (07:30→20:47)
[2023-12-08] MEDS: AMOX/K CLAV 500 MG TAB PO SCH ×2 (08:50→20:46)
[2023-12-08] MEDS: ASPIRIN EC 81 MG TAB PO SCH (08:50)
[2023-12-08] MEDS: METOPROLOL TAR 25 MG TAB PO SCH (08:51)
--- NOTE | 2023-12-08 11:21 | P.PN ---
Date of Service: 12/08/23 Subjective Sitting on side of the bed, conversing well. Complaining of skin of his feet cracking now that the swelling has decreased s ome. Providing antibiotic cream to that area. Coughing has improved. Ambulating independently. ROS 10 point ROS as noted above, otherwise negative Physical Exam General: AAO x3, In no apparent distress HEENT: Atraumatic, Normocephalic, PERRLA Neck: Supple, 2+ carotid pulse no bruit, JVD not distended Respiratory: Normal air movement, Bilateral clear lungs sounds Cardiovascular: Normal S1 S2, +2 pitting Edema (bilateral lower extremities), Irregular heart rate/rhythm (tachycardic), Systolic murmur Capillary refill: <2 Seconds Gastrointestinal: Soft and benign, Distended, nontender Musculoskeletal: No clubbing, Swelling- continues to improve Integumentary: No rashes,ski breakdown to bilateral feet, No significant lesion Neurological: Normal speech, Normal strength at 5/5 x4 extr, Normal tone Vitals Reviewed Problem list Shortness of breath secondary to fluid volume overload HFrEF 25% CAD s/p [place] and stents x2 HTN noncompliant CKD II with stage I HUNG Diabetes mellitus noncompliant Smoking and drug abuse Infected cyst to right buttock (POA) Anemia in chronic illness Iron deficiency 6.4% Assessment and Plan Shortness of breath secondary to fluid volume overload HFrEF 25% CAD s/p [place] and stents x2 HTN complicated with hypotension and tachycardia BNP 2924, troponin 35.8/32.7/36.1 Echo result as follows: 1. SEVERELY DEPRESSED LEFT VENTRICULAR EJECTION FRACTION 20-25% 2. SEVERE GLOBAL HYPOKINESIS 3. MODERATE MITRAL REGURGITATION 4. MODERATE TO SEVERE TRICUSPID REGURGITATION 5. 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 SEVERE DIASTOLIC DYSFUNCTION last ECHO on record is Oct 2022 showing EF of 25% Continue Lasix drip with albumin daily weight and strict I and O- UOP 2100 so far 12/[address] Dejesus- recommendations appreciated for heart failure medication management Hydralazine PRN Restart home medications: Asa, coreg, and atorvastatin (12/05), stopped lisinopril d/t kidney function Stopped Coreg and metoprolol, added midodrine Fluid restriction 1200 ml daily Infected cyst to right buttock (POA) Skin breakdown to bilateral feet continue Augmentin Bactrim stopped d/t kidney function neosporin BID CKD II with stage I HUNG likely d/t diuresis BUN/Creatinine 27/2.06, GFR 36- now on lasix drip with albumin No IVF at this time Continue to monitor close while diuresing nephrology following- Dr. Blankenship Fluid restriction 1200ml daily Anemia in chronic illness Iron deficiency 6.4% Per Dr. Blankenship note -Monitor H&H -Start daily IV iron Diabetes mellitus noncompliant Serum glucose 176 accuCheck with sliding scale insulin- better glucose control today unknown medication management at this time A1C 7.5 Smoking and drug abuse Cessation education offered He reports cutting back to 1/2 pack of cigarettes daily DVT ppx heparin Full code LOS 2 days Discharge Plan: Home Plan to discharge in: 48 Hours Time Spent Managing Pts Care (In Minutes): 38 <Patience Irene - Last Filed: 12/08/23 17:19> Patient examined and the plan of care discussed with Ms. Irene and nephrology Dr. Linn. Acute on chronic systolic heart failure. Nephrology transitioned IV Lasix to oral torsemide. Continue INR monitoring. Patient has been advised to keep his lower extremities elevated. <shaina corrales - Last Filed: 12/09/23 17:17>
[2023-12-08] MEDS ORDERED: ALBUMIN HUMAN 25% 12.5 GM, FUROSEMIDE 100 MG in NA CHLORIDE 0.9% 40 ML IV SCH (12:00)
[2023-12-08] MEDS: BACI/NEOMYCIN/POLY OINT 15GM TOP SCH ×2 (12:03→20:46)
[2023-12-08] MEDS: SOD FERRIC GLUC COMPLX/SUCROSE 125 MG in NA CHLORIDE 0.9% 100 ML IV SCH (15:09)
[2023-12-08] MEDS ORDERED: SOD FERRIC GLUC COMPLX/SUCROSE 125 MG in NA CHLORIDE 0.9% 100 ML IV SCH (19:15)
--- NOTE | 2023-12-08 20:02 | P.PN ---
Vital Signs Temp Pulse Resp BP Pulse Ox 97.1 F 85 16 103/64 91 12/08/23 19:15 12/08/23 19:15 12/08/23 19:15 12/08/23 19:15 12/08/23 19:15 Medications Acetaminophen (Acetaminophen 500 Mg Tab) 500 mg PO Q4HP PRN PRN Reason: TEMP > 100' F Acetaminophen (Acetaminophen 325 Mg Tablet) 650 mg PO Q4HP PRN PRN Reason: Pain scale 2-4 (Mild) Last Admin: 12/08/23 04:34 Dose: 650 mg Amoxicillin/Clavulanate Potassium (Amox/K Clav 500 Mg Tab) 500 mg PO BID [facility] Last Admin: 12/08/23 08:50 Dose: 500 mg Aspirin (Aspirin Ec 81 Mg Tab) 81 mg PO DAILY [facility] Last Admin: 12/08/23 08:50 Dose: 81 mg Atorvastatin Calcium (Atorvastatin 40 Mg Tab) 40 mg PO BEDTIME [facility] Last Admin: 12/07/23 20:08 Dose: 40 mg Heparin Sodium (Porcine) (Heparin 5000 Unit/Ml 1 Ml Vial) 5,000 unit SQ Q8HR [facility] Last Admin: 12/08/23 17:01 Dose: 5,000 unit Hydralazine HCl (Hydralazine Hcl 20 Mg/Ml Vial) 10 mg IV Q4HP PRN PRN Reason: FOR SBP>160 OR DBP>100 MMHG Ferric Sodium Gluconate Complex 125 mg/ Sodium Chloride 110 mls @ 50 mls/hr IV Q24H [facility] Stop: 12/15/23 17:11 Last Admin: 12/08/23 15:09 Dose: 110 mls Insulin Human Regular (Insulin Regular (Human) 100 Unit/Ml) 0 unit SQ ACHS [facility]; Protocol Last Admin: 12/08/23 16:30 Dose: Not Given Midodrine (Midodrine Hcl 5 Mg Tablet) 5 mg PO TIDRESP [facility] Last Admin: 12/08/23 12:07 Dose: 5 mg Neomycin/Polymyxin/Bacitracin (Baci/Neomycin/Poly Oint 15gm) 1 appl TOP BID [facility] Last Admin: 12/08/23 12:03 Dose: 1 appl Oxycodone/Acetaminophen (Oxycodone Hcl/Acetaminophen 5/325 Mg Tab) 1 tab PO Q4H PRN PRN Reason: Pain scale 5-7 (Moderate) Last Admin: 12/08/23 05:35 Dose: 1 tab Torsemide (Torsemide 20 Mg Tab) 40 mg PO DAILY [facility] Assessment/ Plan: Nephrology note (S) Delayed entry note, pt seen earlier this AM, pt reports continuing to diurese on IV Albumin/Lasix ordered by the primary team. Explained to pt the worsening of renal function. Pt denied active CP or dyspnea. (O) vitals reviewed in the EMR General: NAD HEENT: Atraumatic, not on O2 Neck: Supple Respiratory: Non tachypnec, no wheezing Cardiovascular: Non tachy Gastrointestinal: Soft, ND, NT Ext: 2-3+ edema of the LE Integumentary: Some erythema across lower shins Neurological: Sleepy, awakens easily, responds briefly Conclusions/Impression: Stage I HUNG possible in the setting of brisk diuresis, relative BP lowering/hypotension +/- Type 1 CRS on possible underlying CKD II -Cont to trend renal function tests, slow rate of diuresis HTN with CKD/ CHF complicated by hypotension -Hold DEB inhibitors at this time, monitor BP closely Systolic CHF, A/C -Will d/c Lasix drip. Will slow rate of diuresis, cont to monitor UOP and weig hts closely, will order switch to PO diuretics from tmrw. Will order Torsemide with higher maintenance PO diuretic dose than what pt has listed as home dose Hector Linn MD, [facility]
[2023-12-08] MEDS: ATORVASTATIN 40 MG TAB PO SCH (20:46)
[2023-12-09] MEDS: HEPARIN 5000 UNIT/ML 1 ML VIAL SQ SCH ×3 (00:34→16:23)
[2023-12-09 03:40] LABS: Absolute Lymphocytes (CBC) 1.7 K/uL (0.7-4.9); Hematocrit 36.1 % (39.6-49.0); Lymphocytes % 22.3 % (15.3-44.8); MPV 8.5 fL (7.6-11.3); Platelets 242 thou/uL (152-406); RBC Red Blood Cell Count 5.01 M/uL (4.33-5.43)
[2023-12-09 04:08] LABS: Magnesium 2.5 mg/dL (1.6-2.4); Phosphorus 3.7 mg/dL (2.5-4.9); Potassium 3.4 mEq/L (3.5-5.1)
[2023-12-09] MEDS ORDERED: POTASSIUM CL SA 10 MEQ TAB PO ONE (06:00)
[2023-12-09] MEDS: AMOX/K CLAV 500 MG TAB PO SCH ×2 (08:29→20:11)
[2023-12-09] MEDS: TORSEMIDE 20 MG TAB PO SCH (08:30)
[2023-12-09] MEDS: ASPIRIN EC 81 MG TAB PO SCH (08:30)
[2023-12-09] MEDS: MIDODRINE HCL 5 MG TABLET PO SCH ×3 (08:32→20:11)
[2023-12-09] MEDS: INSULIN REGULAR (HUMAN) 100 UNIT/ML SQ SCH ×4 (09:53→20:11)
[2023-12-09] MEDS: BACI/NEOMYCIN/POLY OINT 15GM TOP SCH ×2 (09:54→20:11)
[2023-12-09] MEDS: SOD FERRIC GLUC COMPLX/SUCROSE 125 MG in NA CHLORIDE 0.9% 100 ML IV SCH (14:39)
--- NOTE | 2023-12-09 16:38 | P.PN ---
Date of Service: 12/09/23 Subjective Sleeping but easily aroused. Improvement in his kidney function, UOP 2900 yesterday No complaints this am, He has tolerated the lasix drip well and now transitioned to torsemide ROS 10 point ROS as noted above, otherwise negative Physical Exam General: Sleeping, Oriented x3, In no apparent distress HEENT: Atraumatic, Normocephalic, PERRLA Neck: Supple, 2+ carotid pulse no bruit, JVD not distended Respiratory: Normal air movement, Bilateral clear lungs sounds, symmetrical chest movement Cardiovascular: Normal S1 S2, +2 pitting Edema (bilateral lower extremities), Systolic murmur Capillary refill: <2 Seconds Gastrointestinal: Soft and benign, Distended, nontender Musculoskeletal: No clubbing, Swelling- continues to improve Integumentary: No rashes,skin breakdown to bilateral feet, No significant lesion Neurological: Normal speech, Normal strength at 5/5 x4 extr, Normal tone Vitals Reviewed Problem list Shortness of breath secondary to fluid volume overload HFrEF 25% CAD s/p [place] and stents x2 HTN noncompliant CKD II with stage I HUNG Diabetes mellitus noncompliant Smoking and drug abuse Infected cyst to right buttock (POA) Anemia in chronic illness Iron deficiency 6.4% Assessment and Plan Shortness of breath secondary to fluid volume overload HFrEF 25% CAD s/p [place] and stents x2 HTN complicated with hypotension and tachycardia BNP 2924, troponin 35.8/32.7/36.1 Echo result as follows: 1. SEVERELY DEPRESSED LEFT VENTRICULAR EJECTION FRACTION 20-25% 2. SEVERE GLOBAL HYPOKINESIS 3. MODERATE MITRAL REGURGITATION 4. MODERATE TO SEVERE TRICUSPID REGURGITATION 5. 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 SEVERE DIASTOLIC DYSFUNCTION last ECHO on record is Oct 2022 showing EF of 25% Lasix drip with albumin stopped Started torsemide 12/09 daily weight and strict I and O- UOP 2900, net -[address] Dejesus- recommendations appreciated for heart failure medication management Hydralazine PRN Restart home medications: Asa, coreg, and atorvastatin (12/05), stopped lisinopril d/t kidney function Stopped Coreg and metoprolol, added midodrine Fluid restriction 1200 ml daily Infected cyst to right buttock (POA) Skin breakdown to bilateral feet continue Augmentin Bactrim stopped d/t kidney function neosporin BID CKD II with stage I HUNG likely d/t diuresis BUN/Creatinine 29/1.75, GFR 45 lasix drip with albumin stopped- torsemide started No IVF at this time Continue to monitor close while diuresing nephrology following- Dr. Blankenship Fluid restriction 1200ml daily Anemia in chronic illness Iron deficiency 6.4% Per Dr. Blankenship note -Monitor H&H -continue daily IV iron Diabetes mellitus noncompliant Serum glucose 147 accuCheck with sliding scale insulin- better glucose control today unknown medication management at this time A1C 7.5 Smoking and drug abuse Cessation education offered He reports cutting back to 1/2 pack of cigarettes daily DVT ppx heparin Full code LOS 2 days Discharge Plan: Home Plan to discharge in: 48 Hours
[2023-12-09] MEDS: ATORVASTATIN 40 MG TAB PO SCH (20:11)
[2023-12-10] MEDS: HEPARIN 5000 UNIT/ML 1 ML VIAL SQ SCH ×3 (00:19→16:33)
[2023-12-10] MEDS: Oxycodone HCl/Acetaminophen 5/325 MG TAB PO PRN ×2 (03:21→22:17)
[2023-12-10 03:58] LABS: Absolute Lymphocytes (CBC) 1.7 K/uL (0.7-4.9); Hematocrit 36.7 % (39.6-49.0); Lymphocytes % 16.7 % (15.3-44.8); MPV 8.7 fL (7.6-11.3); Platelets 255 thou/uL (152-406)
[2023-12-10 04:38] LABS: Magnesium 2.3 mg/dL (1.6-2.4); Phosphorus 2.5 mg/dL (2.5-4.9)
[2023-12-10] MEDS: MIDODRINE HCL 5 MG TABLET PO SCH ×3 (06:18→20:32)
[2023-12-10] MEDS: TORSEMIDE 20 MG TAB PO SCH (08:44)
[2023-12-10] MEDS: ASPIRIN EC 81 MG TAB PO SCH (08:45)
[2023-12-10] MEDS: INSULIN REGULAR (HUMAN) 100 UNIT/ML SQ SCH ×4 (08:45→21:00)
[2023-12-10] MEDS: AMOX/K CLAV 500 MG TAB PO SCH ×2 (08:45→20:32)
[2023-12-10] MEDS: BACI/NEOMYCIN/POLY OINT 15GM TOP SCH ×2 (08:45→20:32)
--- NOTE | 2023-12-10 09:43 | P.PN ---
Date of Service: 12/10/23 Vital Signs Temp Pulse Resp BP Pulse Ox 97.7 F 94 H 18 113/81 97 12/10/23 08:00 12/10/23 08:00 12/10/23 08:00 12/10/23 08:00 12/10/23 08:00 Medications Acetaminophen (Acetaminophen 500 Mg Tab) 500 mg PO Q4HP PRN PRN Reason: TEMP > 100' F Acetaminophen (Acetaminophen 325 Mg Tablet) 650 mg PO Q4HP PRN PRN Reason: Pain scale 2-4 (Mild) Last Admin: 12/08/23 04:34 Dose: 650 mg Amoxicillin/Clavulanate Potassium (Amox/K Clav 500 Mg Tab) 500 mg PO BID [facility] Last Admin: 12/10/23 08:45 Dose: 500 mg Aspirin (Aspirin Ec 81 Mg Tab) 81 mg PO DAILY [facility] Last Admin: 12/10/23 08:45 Dose: 81 mg Atorvastatin Calcium (Atorvastatin 40 Mg Tab) 40 mg PO BEDTIME [facility] Last Admin: 12/09/23 20:11 Dose: 40 mg Heparin Sodium (Porcine) (Heparin 5000 Unit/Ml 1 Ml Vial) 5,000 unit SQ Q8HR [facility] Last Admin: 12/10/23 08:45 Dose: 5,000 unit Hydralazine HCl (Hydralazine Hcl 20 Mg/Ml Vial) 10 mg IV Q4HP PRN PRN Reason: FOR SBP>160 OR DBP>100 MMHG Ferric Sodium Gluconate Complex 125 mg/ Sodium Chloride 110 mls @ 50 mls/hr IV Q24H [facility] Stop: 12/15/23 17:11 Last Admin: 12/09/23 14:39 Dose: 110 mls Insulin Human Regular (Insulin Regular (Human) 100 Unit/Ml) 0 unit SQ ACHS [facility]; Protocol Last Admin: 12/10/23 08:45 Dose: 4 unit Midodrine (Midodrine Hcl 5 Mg Tablet) 5 mg PO TIDRESP [facility] Last Admin: 12/10/23 06:18 Dose: 5 mg Neomycin/Polymyxin/Bacitracin (Baci/Neomycin/Poly Oint 15gm) 1 appl TOP BID [facility] Last Admin: 12/10/23 08:45 Dose: 1 appl Oxycodone/Acetaminophen (Oxycodone Hcl/Acetaminophen 5/325 Mg Tab) 1 tab PO Q4H PRN PRN Reason: Pain scale 5-7 (Moderate) Last Admin: 12/10/23 03:21 Dose: 1 tab Torsemide (Torsemide 20 Mg Tab) 40 mg PO DAILY [facility] Last Admin: 12/10/23 08:44 Dose: 40 mg Assessment/ Plan: Nephrology No dyspnea No chest pain No acute events overnight Vitals, medications, blood work and imaging reviewed in the chart General: In no apparent distress, Oriented x3, Cooperative HEENT: Atraumatic Neck: Supple Respiratory: Clear to auscultation bilaterally, Normal air movement Cardiovascular: Regular rate/rhythm, Edema Gastrointestinal: Soft and benign, Non-distended Musculoskeletal: No clubbing, No contractures Integumentary: No rashes, No cyanosis, Skin lesion Neurological: Normal speech Blood work reviewed in the chart. Imagings Data: EXAM DESCRIPTION: RAD - Chest Single View - 12/04/2023 1:19 pm CLINICAL HISTORY: shortness of breath COMPARISON: <Comparisons> FINDINGS: Lines: None. Lungs: Diffuse prominence of the pulmonary interstitium. Pleural: Small pleural effusions difficult to exclude. Cardiac: Cardiomegaly. Mediastinum: Within normal limits. Bones: No acute fractures. Other: None IMPRESSION: Mild pulmonary edema. Conclusions/Impression: Stage I HUNG may be due to diuresis complicated by hypotension CKD II with Proteinuria -No NSAIDs -Continue duresis Hyponatremia -Fluid restriction Hypokalemia -Replete prn HTN with CKD/ CHF complicated by hypotension Tachycardia -Continue Midodrine TID Systolic CHF, A/C -Continue torsemide DM II with Hyperglycemia -RISS Anemia in chronic illness Iron Deficiency 6.4% -Monitor H&H -Continue daily IV iron Hospitalist note reviewed
--- NOTE | 2023-12-10 10:58 | P.PN ---
Date of Service: 12/10/23 Subjective Sleeping, he seems to be more tired recently, Slow improvement to kidney function - UOP 2550 with net negative 1440 12/09 BNP still elevated, plan to continue to diurese tolerating tosemide No acute events overnight ROS 10 point ROS as noted above, otherwise negative Physical Exam General: Sleeping, Oriented x3, NAD HEENT: Atraumatic, Normocephalic, PERRLA Neck: Supple, 2+ carotid pulse no bruit, JVD not distended Respiratory: Normal air movement, Bilateral clear lungs sounds, symmetrical chest movement Cardiovascular: Normal S1 S2, Systolic murmur, +2 pitting Edema (bilateral lower extremities), Capillary refill: <2 Seconds Gastrointestinal: Soft and benign, Distended, nontender Musculoskeletal: No clubbing, Swelling remains, 2+ peripheral pulses Integumentary: No rashes, skin breakdown to bilateral feet, BLE red, No significant lesion Neurological: Normal speech, Normal strength at 5/5 x4 extr, Normal tone Vitals Reviewed Problem list Shortness of breath secondary to fluid volume overload HFrEF 25% CAD s/p [place] and stents x2 HTN noncompliant CKD II with stage I HUNG Diabetes mellitus noncompliant Smoking and drug abuse Infected cyst to right buttock (POA) Anemia in chronic illness Iron deficiency 6.4% Assessment and Plan Shortness of breath secondary to fluid volume overload HFrEF 25% CAD s/p [place] and stents x2 HTN complicated with hypotension and tachycardia BNP 2924, troponin 35.8/32.7/36.1 Echo result as follows: 1. SEVERELY DEPRESSED LEFT VENTRICULAR EJECTION FRACTION 20-25% 2. SEVERE GLOBAL HYPOKINESIS 3. MODERATE MITRAL REGURGITATION 4. MODERATE TO SEVERE TRICUSPID REGURGITATION 5. 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 SEVERE DIASTOLIC DYSFUNCTION last ECHO on record is Oct 2022 showing EF of 25% Lasix drip with albumin stopped Started torsemide 12/09 daily weight 224 dropped from 230and strict I and O- UOP 2550, net -[address] Dejesus- recommendations appreciated for heart failure medication management Hydralazine PRN Restart home medications: Asa, coreg, and atorvastatin (12/05), stopped lisinopril d/t kidney function Stopped Coreg and metoprolol, added midodrine Fluid restriction 1200 ml daily Infected cyst to right buttock (POA) Skin breakdown to bilateral feet continue Augmentin Bactrim stopped d/t kidney function neosporin BID CKD II with stage I HUNG likely d/t diuresis BUN/Creatinine 27/1.62, GFR 49 lasix drip with albumin stopped- torsemide started No IVF at this time Continue to monitor close while diuresing nephrology following- Dr. Blankenship Fluid restriction 1200ml daily with low sodium diet Anemia in chronic illness Iron deficiency 6.4% Per Dr. Blankenship note -Monitor H&H (12/10) -continue daily IV iron Diabetes mellitus noncompliant Serum glucose 151, with elevate POC glucose 290 accuCheck with sliding scale insulin- better glucose control today unknown medication management at this time A1C 7.5 Smoking and drug abuse Cessation education offered He reports cutting back to 1/2 pack of cigarettes daily DVT ppx heparin Full code LOS 2 days Discharge Plan: Home Plan to discharge in: 48 Hours
[2023-12-10] MEDS: SOD FERRIC GLUC COMPLX/SUCROSE 125 MG in NA CHLORIDE 0.9% 100 ML IV SCH (15:00)
--- NOTE | 2023-12-10 16:44 | PN ---
Date of Progress Note: 12/10/2023 Subjective: The patient continues to have lower extremity edema, shortness of breath with activities . No chest pain. Review of Systems: No chest pain. Has dyspnea on exertion. No orthopnea or lower extremity edema. No nausea, vomiting , or diarrhea. No abdominal pain. All other systems were reviewed, they were negative. Objective: Vital Signs: Reviewed. Head and Neck: Pupils are equal, reactive to light. Intact eye movements. No JVD. No cervical lym phadenopathy. Neck is supple. Thyroid is not enlarged. Lungs: Clear to auscultation bilaterally. No rhonchi, wheezing, or crackles. No accessory muscle u se. Heart: Irregular. No extra sounds. Abdomen: Soft, nontender. Bowel sounds positive. No organomegaly. No masses or hernia. No rigidi ty or rebound. Extremities: No clubbing or cyanosis. Intact pulses. Positive edema 2+ bilaterally. Neurologic: Alert, awake, oriented x3. No acute focal deficits appreciated. Lymph Nodes: No cervical or axillary lymphadenopathy. Investigations: Creatinine is 1.62. Troponins are negative. Assessment And Recommendations: 1.Acute on chronic systolic heart failure exacerbation. The patient is doing better. Switch to ora l torsemide. Continue that. Monitor BUN, creatinine, and electrolytes. 2.Dyslipidemia. Continue statin. 3.Coronary artery disease. No chest pain. Cardiac enzymes are negative. Continue aspirin and stat in. Cardiology will sign off from the case. SR/MODL Voice ID: [id number] Report ID: [id number]
[2023-12-10] MEDS: ATORVASTATIN 40 MG TAB PO SCH (20:32)
[2023-12-11] MEDS: HEPARIN 5000 UNIT/ML 1 ML VIAL SQ SCH ×3 (00:46→17:43)
[2023-12-11 05:42] LABS: Absolute Lymphocytes (CBC) 1.5 K/uL (0.7-4.9); Hematocrit 32.1 % (39.6-49.0); Lymphocytes % 17.7 % (15.3-44.8); MCV 72.2 fL (80-100); MPV 8.8 fL (7.6-11.3); Platelets 195 thou/uL (152-406); RBC Red Blood Cell Count 4.45 M/uL (4.33-5.43)
[2023-12-11 05:50] LABS: Magnesium 2.1 mg/dL (1.6-2.4); Phosphorus 2.8 mg/dL (2.5-4.9); Potassium 3.5 mEq/L (3.5-5.1)
[2023-12-11] MEDS: MIDODRINE HCL 5 MG TABLET PO SCH ×3 (06:16→20:46)
[2023-12-11] MEDS: Oxycodone HCl/Acetaminophen 5/325 MG TAB PO PRN ×2 (06:19→11:09)
[2023-12-11] MEDS: INSULIN REGULAR (HUMAN) 100 UNIT/ML SQ SCH ×4 (07:30→20:46)
[2023-12-11] MEDS: ASPIRIN EC 81 MG TAB PO SCH (08:43)
[2023-12-11] MEDS: TORSEMIDE 20 MG TAB PO SCH (08:43)
[2023-12-11] MEDS: AMOX/K CLAV 500 MG TAB PO SCH ×2 (08:44→20:46)
[2023-12-11] MEDS: BACI/NEOMYCIN/POLY OINT 15GM TOP SCH ×2 (08:45→20:47)
[2023-12-11] MEDS ORDERED: POTASSIUM CL SA 10 MEQ TAB PO ONE ×2 (09:00→10:00)
[2023-12-11] MEDS: AMILORIDE HCL 5 MG TABLET PO SCH (09:00)
--- NOTE | 2023-12-11 10:50 | P.PN ---
Date of Service: 12/11/23 Subjective: Lower extremity swelling and breathing slowly improving no acute events overnight ROS: 10 point ROS as noted above, otherwise negative Physical exam GEN: Alert, oriented, NAD HEENT: Normal conjunctiva, sclera anicteric CV: Regular rate and rhythm, 1+ edema KIRTI LE Pulm: Nonlabored respirations on room air ABD: Soft, nontender, nondistended MSK: No joint tenderness Integumentary: No rashes Neuro: Normal speech, normal affect Vitals reviewed Problem List Shortness of breath secondary to fluid volume overload HFrEF 25% CAD s/p KS and stents x2 HTN noncompliant CKD II with stage I HUNG Diabetes mellitus noncompliant Smoking and drug abuse Infected cyst to right buttock (POA) Anemia in chronic illness Iron deficiency 6.4% Plan Shortness of breath secondary to fluid volume overload HFrEF 25% CAD s/p KS and stents x2 HTN complicated with hypotension and tachycardia Echo result as follows: 1. SEVERELY DEPRESSED LEFT VENTRICULAR EJECTION FRACTION 20-25% 2. SEVERE GLOBAL HYPOKINESIS 3. MODERATE MITRAL REGURGITATION 4. MODERATE TO SEVERE TRICUSPID REGURGITATION 5. 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 SEVERE DIASTOLIC DYSFUNCTION last ECHO on record is Oct 2022 showing EF of 25% Lasix drip with albumin stopped Started torsemide 12/09, tolerating well Restart home medications: Asa, coreg, and atorvastatin (12/05), stopped lisinopril d/t kidney function Stopped Coreg and metoprolol, added midodrine Fluid restriction 1200 ml daily Infected cyst to right buttock (POA) Skin breakdown to bilateral feet continue Augmentin Bactrim stopped d/t kidney function neosporin BID CKD II with stage I HUNG likely d/t diuresis Cr ~1.7 lasix drip with albumin stopped- torsemide started Continue to monitor close while diuresing nephrology following- Dr. Blankenship Fluid restriction 1200ml daily with low sodium diet Anemia in chronic illness Iron deficiency 6.4% continue daily IV iron Diabetes mellitus noncompliant accuCheck with sliding scale insulin unknown medication management at this time A1C 7.5 Smoking and drug abuse Cessation education offered He reports cutting back to 1/2 pack of cigarettes daily DVT ppx heparin Full code LOS 1-2 days Discharge Plan: Home Time Spent Managing Pts Care (In Minutes): 35
[2023-12-11] MEDS: SOD FERRIC GLUC COMPLX/SUCROSE 125 MG in NA CHLORIDE 0.9% 100 ML IV SCH (15:16)
[2023-12-11 17:58] VITALS: BMI 29.7
--- NOTE | 2023-12-11 18:31 | RAD REPORT ---
EXAM DESCRIPTION: US - UPPER EXTREMITY VENOUS UNILATE - 12/11/2023 2:08 pm CLINICAL HISTORY: Redness, pain on previous IV site COMPARISON: None. TECHNIQUE: Real-time sonographic evaluation of the left upper extremity deep venous system was perfo rmed. FINDINGS: Normal compressibility, flow augmentation, phasic flow and spontaneous flow is identified in the left upper extremity deep venous system. No intraluminal filling defects seen. IMPRESSION: No DVT in the left upper extremity.
[2023-12-11] MEDS: ATORVASTATIN 40 MG TAB PO SCH (20:46)
--- NOTE | 2023-12-11 21:29 | P.PN ---
Date of Service: 12/11/23 Vital Signs Temp Pulse Resp BP Pulse Ox 97.3 F 92 H 14 116/78 90 L 12/11/23 16:00 12/11/23 16:00 12/11/23 16:00 12/11/23 16:00 12/11/23 16:00 Medications Acetaminophen (Acetaminophen 500 Mg Tab) 500 mg PO Q4HP PRN PRN Reason: TEMP > 100' F Acetaminophen (Acetaminophen 325 Mg Tablet) 650 mg PO Q4HP PRN PRN Reason: Pain scale 2-4 (Mild) Last Admin: 12/08/23 04:34 Dose: 650 mg Amiloride HCl (Amiloride Hcl 5 Mg Tablet) 5 mg PO DAILY [facility] Last Admin: 12/11/23 09:00 Dose: Not Given Amoxicillin/Clavulanate Potassium (Amox/K Clav 500 Mg Tab) 500 mg PO BID [facility] Last Admin: 12/11/23 20:46 Dose: 500 mg Aspirin (Aspirin Ec 81 Mg Tab) 81 mg PO DAILY [facility] Last Admin: 12/11/23 08:43 Dose: 81 mg Atorvastatin Calcium (Atorvastatin 40 Mg Tab) 40 mg PO BEDTIME [facility] Last Admin: 12/11/23 20:46 Dose: 40 mg Heparin Sodium (Porcine) (Heparin 5000 Unit/Ml 1 Ml Vial) 5,000 unit SQ Q8HR [facility] Last Admin: 12/11/23 17:43 Dose: 5,000 unit Hydralazine HCl (Hydralazine Hcl 20 Mg/Ml Vial) 10 mg IV Q4HP PRN PRN Reason: FOR SBP>160 OR DBP>100 MMHG Ferric Sodium Gluconate Complex 125 mg/ Sodium Chloride 110 mls @ 50 mls/hr IV Q24H [facility] Stop: 12/15/23 17:11 Last Admin: 12/11/23 15:16 Dose: 110 mls Insulin Human Regular (Insulin Regular (Human) 100 Unit/Ml) 0 unit SQ ACHS [facility]; Protocol Last Admin: 12/11/23 20:46 Dose: 2 unit Midodrine (Midodrine Hcl 5 Mg Tablet) 5 mg PO TIDRESP [facility] Last Admin: 12/11/23 20:46 Dose: 5 mg Neomycin/Polymyxin/Bacitracin (Baci/Neomycin/Poly Oint 15gm) 1 appl TOP BID [facility] Last Admin: 12/11/23 20:47 Dose: 1 appl Oxycodone/Acetaminophen (Oxycodone Hcl/Acetaminophen 5/325 Mg Tab) 1 tab PO Q4H PRN PRN Reason: Pain scale 5-7 (Moderate) Last Admin: 12/11/23 11:09 Dose: 1 tab Torsemide (Torsemide 20 Mg Tab) 40 mg PO DAILY [facility] Last Admin: 12/11/23 08:43 Dose: 40 mg Assessment/ Plan: Nephrology No dyspnea No chest pain No acute events overnight Vitals, medications, blood work and imaging reviewed in the chart General: In no apparent distress, Oriented x3, Cooperative HEENT: Atraumatic Neck: Supple Respiratory: Clear to auscultation bilaterally, Normal air movement Cardiovascular: Regular rate/rhythm, Edema Gastrointestinal: Soft and benign, Non-distended Musculoskeletal: No clubbing, No contractures Integumentary: No rashes, No cyanosis, Skin lesion Neurological: Normal speech Blood work reviewed in the chart. Imagings Data: EXAM DESCRIPTION: RAD - Chest Single View - 12/04/2023 1:19 pm CLINICAL HISTORY: shortness of breath COMPARISON: <Comparisons> FINDINGS: Lines: None. Lungs: Diffuse prominence of the pulmonary interstitium. Pleural: Small pleural effusions difficult to exclude. Cardiac: Cardiomegaly. Mediastinum: Within normal limits. Bones: No acute fractures. Other: None IMPRESSION: Mild pulmonary edema. LEFT VENTRICULAR WALL MOTION: SEVERE GLOBAL HYPOKINESIS DOPPLER/COLOR FLOW: SEE BELOW COMMENTS: 1. SEVERELY DEPRESSED LEFT VENTRICULAR EJECTION FRACTION 20-25% 2. SEVERE GLOBAL HYPOKINESIS 3. MODERATE MITRAL REGURGITATION 4. MODERATE TO SEVERE TRICUSPID REGURGITATION 5. 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 SEVERE DIASTOLIC DYSFUNCTION Conclusions/Impression: Stage I HUNG may be due to diuresis complicated by hypotension CKD II with Proteinuria -No NSAIDs -Continue duresis Hyponatremia -Fluid restriction Hypokalemia -Replete as ordered -Start Amiloride HTN with CKD/ CHF complicated by hypotension Tachycardia -Continue Midodrine TID Systolic Diastolic CHF, A/C Moderate TR & MR Pulmonary HTN -Continue torsemide DM II with Hyperglycemia -RISS Anemia in chronic illness Iron Deficiency 6.4% -Monitor H&H -Continue daily IV iron Hospitalist note reviewed
[2023-12-12] MEDS: HEPARIN 5000 UNIT/ML 1 ML VIAL SQ SCH ×2 (00:34→10:08)
[2023-12-12] MEDS: Oxycodone HCl/Acetaminophen 5/325 MG TAB PO PRN ×3 (02:20→10:11)
[2023-12-12 05:48] LABS: Potassium 3.9 mEq/L (3.5-5.1)
[2023-12-12 05:54] VITALS: O2SAT 94
[2023-12-12] MEDS: MIDODRINE HCL 5 MG TABLET PO SCH (06:15)
--- NOTE | 2023-12-12 06:51 | P.PN ---
Date of Service: 12/12/23 Vital Signs Temp Pulse Resp BP Pulse Ox 98.8 F 110 H 18 125/85 94 12/12/23 04:00 12/12/23 04:00 12/12/23 06:16 12/12/23 04:00 12/12/23 06:16 Medications Acetaminophen (Acetaminophen 500 Mg Tab) 500 mg PO Q4HP PRN PRN Reason: TEMP > 100' F Acetaminophen (Acetaminophen 325 Mg Tablet) 650 mg PO Q4HP PRN PRN Reason: Pain scale 2-4 (Mild) Last Admin: 12/08/23 04:34 Dose: 650 mg Amiloride HCl (Amiloride Hcl 5 Mg Tablet) 5 mg PO DAILY [facility] Last Admin: 12/11/23 09:00 Dose: Not Given Amoxicillin/Clavulanate Potassium (Amox/K Clav 500 Mg Tab) 500 mg PO BID [facility] Last Admin: 12/11/23 20:46 Dose: 500 mg Aspirin (Aspirin Ec 81 Mg Tab) 81 mg PO DAILY [facility] Last Admin: 12/11/23 08:43 Dose: 81 mg Atorvastatin Calcium (Atorvastatin 40 Mg Tab) 40 mg PO BEDTIME [facility] Last Admin: 12/11/23 20:46 Dose: 40 mg Heparin Sodium (Porcine) (Heparin 5000 Unit/Ml 1 Ml Vial) 5,000 unit SQ Q8HR [facility] Last Admin: 12/12/23 00:34 Dose: 5,000 unit Hydralazine HCl (Hydralazine Hcl 20 Mg/Ml Vial) 10 mg IV Q4HP PRN PRN Reason: FOR SBP>160 OR DBP>100 MMHG Ferric Sodium Gluconate Complex 125 mg/ Sodium Chloride 110 mls @ 50 mls/hr IV Q24H [facility] Stop: 12/15/23 17:11 Last Admin: 12/11/23 15:16 Dose: 110 mls Insulin Human Regular (Insulin Regular (Human) 100 Unit/Ml) 0 unit SQ ACHS [facility]; Protocol Last Admin: 12/11/23 20:46 Dose: 2 unit Midodrine (Midodrine Hcl 5 Mg Tablet) 5 mg PO TIDRESP [facility] Last Admin: 12/12/23 06:15 Dose: 5 mg Neomycin/Polymyxin/Bacitracin (Baci/Neomycin/Poly Oint 15gm) 1 appl TOP BID [facility] Last Admin: 12/11/23 20:47 Dose: 1 appl Oxycodone/Acetaminophen (Oxycodone Hcl/Acetaminophen 5/325 Mg Tab) 1 tab PO Q4H PRN PRN Reason: Pain scale 5-7 (Moderate) Last Admin: 12/12/23 06:16 Dose: 1 tab Potassium Chloride (Potassium Cl Sa 10 Meq Tab) 20 meq PO 1X ONE Stop: 12/12/23 09:01 Torsemide (Torsemide 20 Mg Tab) 40 mg PO DAILY [facility] Last Admin: 12/11/23 08:43 Dose: 40 mg Assessment/ Plan: Nephrology No dyspnea No chest pain Improving edema No acute events overnight Vitals, medications, blood work and imaging reviewed in the chart General: In no apparent distress, Oriented x3, Cooperative HEENT: Atraumatic Neck: Supple Respiratory: Clear to auscultation bilaterally, Normal air movement Cardiovascular: Regular rate/rhythm, Edema Gastrointestinal: Soft and benign, Non-distended Musculoskeletal: No clubbing, No contractures Integumentary: No rashes, No cyanosis, Skin lesion Neurological: Normal speech Blood work reviewed in the chart. Imagings Data: EXAM DESCRIPTION: RAD - Chest Single View - 12/04/2023 1:19 pm CLINICAL HISTORY: shortness of breath COMPARISON: <Comparisons> FINDINGS: Lines: None. Lungs: Diffuse prominence of the pulmonary interstitium. Pleural: Small pleural effusions difficult to exclude. Cardiac: Cardiomegaly. Mediastinum: Within normal limits. Bones: No acute fractures. Other: None IMPRESSION: Mild pulmonary edema. LEFT VENTRICULAR WALL MOTION: SEVERE GLOBAL HYPOKINESIS DOPPLER/COLOR FLOW: SEE BELOW COMMENTS: 1. SEVERELY DEPRESSED LEFT VENTRICULAR EJECTION FRACTION 20-25% 2. SEVERE GLOBAL HYPOKINESIS 3. MODERATE MITRAL REGURGITATION 4. MODERATE TO SEVERE TRICUSPID REGURGITATION 5. 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 SEVERE DIASTOLIC DYSFUNCTION Conclusions/Impression: Stage I HUNG may be due to diuresis complicated by hypotension CKD II with Proteinuria -No NSAIDs -Continue duresis Hyponatremia -Fluid restriction Hypokalemia -Replete as ordered -Continue Amiloride HTN with CKD/ CHF complicated by hypotension Tachycardia -Continue Midodrine TID Systolic Diastolic CHF, A/C Moderate TR & MR Pulmonary HTN -Continue torsemide DM II with Hyperglycemia -RISS Anemia in chronic illness Iron Deficiency 6.4% -Monitor H&H -Continue daily IV iron Hospitalist note reviewed
[2023-12-12] MEDS: INSULIN REGULAR (HUMAN) 100 UNIT/ML SQ SCH (07:30)
[2023-12-12] MEDS: AMILORIDE HCL 5 MG TABLET PO SCH (09:00)
[2023-12-12] MEDS ORDERED: POTASSIUM CL SA 10 MEQ TAB PO ONE (09:00)
[2023-12-12] MEDS: BACI/NEOMYCIN/POLY OINT 15GM TOP SCH (09:00)
[2023-12-12 09:52] VITALS: BP 114/78; TEMP 97
[2023-12-12] MEDS: AMOX/K CLAV 500 MG TAB PO SCH (10:07)
[2023-12-12] MEDS: ASPIRIN EC 81 MG TAB PO SCH (10:08)
[2023-12-12] MEDS: TORSEMIDE 20 MG TAB PO SCH (10:08)
--- NOTE | 2023-12-12 10:38 | P.DS ---
Admission Date: 12/06/23 Discharge Date: 12/12/23 Disposition: ROUTINE DISCHARGE Discharge Condition: GOOD Reason for Admission: SOB 2/ fluid volume overload Consultations: Cardiology-Dr. Dejesus Nephrology- Dr. Blankenship Brief History of Present Illness: Lb Epstein is a 58 year old male with past medical history of hypertension, diabetes mellitus type 2, CAD status post WI requiring 2 stents, HFrEF 25% is to the ED with complaints of shortness of breath for the last 2 to 3 weeks due to losing insurance coverage and running out of medication. His associated symptoms are cough, dyspnea on exertion, weakness, and bilateral lower extremity 3+ pitting edema. He reports losing insurance coverage and medications last year as well. On examination Lb was experiencing pain to his bilateral 3+ pitting edema. Lasix has been started in the ED and UOP has been reported at 1800 ml. He presents hypertensive and tachycardic, will monitor closely during diuresis. Initial vitals BP 142 / 92; Pulse 114; Resp 22; Temp 97.9; Pulse Ox 100% on R/A. Laboratory evaluations BNP 2924, troponin 35.8, sodium 137, potassium 4.0, BUN/creatinine 16/1.37, GFR 60, serum glucose 210. Chest x-ray reports "Mild pulmonary edema." EKG "Rate is 110 beats/min. Rhythm is regular. QRS Shokan is Normal. [place] interval is normal. QRS interval is normal. Clinical impression: Sinus tachycardia." Hospital Course: Problem list Shortness of breath secondary to fluid volume overload HFrEF 25% CAD s/p [place] and stents x2 HTN noncompliant CKD II with stage I HUNG Diabetes mellitus noncompliant Smoking and drug abuse Infected cyst to right buttock (POA) Anemia in chronic illness Iron deficiency 6.4% Patient was admitted to the hospital for dyspnea, edema secondary to acute on chronic systolic congestive heart failure. He had been without insurance coverage is and did not have any medications. He was diuresed during his hospital stay, he did develop an acute kidney injury which has improved. Peak creatinine was 2.09, down to 1.5 today. Echocardiogram was performed during his hospitalization which revealed severely depressed left ventricular ejection fraction 20 to 25%, severe global hypokinesis, moderate mitral regurgitation, moderate to severe tricuspid regurgitation, severe pulmonary hypertension with right ventricular pressure greater than 60 mmHg, severe diastolic dysfunction. Patient was seen by cardiology and nephrology, blood pressure was running low which made difficult for diuresis, patient was started on midodrine. He has been stable on midodrine, amiloride, torsemide for the past couple of days. Lower extremity Ciara significantly improved. At discharge patient will be prescribed the following medications Atorvastatin 40 mg once daily Amiloride 5 mg daily Torsemide 40 mg daily Midodrine 5 mg 3 times daily Metformin 500 mg by mouth twice daily to be further titrated by his primary care doctor-creatinine clearance 69 at discharge He also takes daily aspirin 81 mg which he is to continue Discussed daily weights and monitoring blood pressure, if blood pressures persistently elevated greater than 130 systolic may hold midodrine. Also discussed obtaining glucometer, monitoring blood glucose at home and following up PCP regarding diabetes Please follow-up with Dr. Paulino in 1 to 2 weeks Follow-up with nephrologyDr. Blankenship in 1 week Please establish yourself with and follow-up with a primary care doctor in the next 1 week Vital Signs/Physical Exam: Temp Pulse Resp BP Pulse Ox 97.0 F 96 H 20 114/78 93 12/12/23 08:00 12/12/23 08:00 12/12/23 08:00 12/12/23 08:00 12/12/23 08:00 General: Alert, In no apparent distress, Oriented x3 HEENT: Atraumatic, PERRLA Neck: Supple, JVD not distended Respiratory: Clear to auscultation bilaterally, Normal air movement Cardiovascular: Regular rate/rhythm, Normal S1 S2, Edema (Trace edema KIRTI LE) Gastrointestinal: Normal bowel sounds Musculoskeletal: No tenderness Integumentary: No rashes Neurological: Normal speech, Normal tone Laboratory Data at Discharge: WBC 8.30 thou/uL (4.3-10.9) 12/11/23 04:58 Hgb 10.3 g/dL (13.6-17.9) L D 12/11/23 04:58 Hct 32.1 % (39.6-49.0) L 12/11/23 04:58 Plt Count 195 thou/uL (152-406) 12/11/23 04:58 Sodium 136 mEq/L (136-145) 12/12/23 04:55 Potassium 3.9 mEq/L (3.5-5.1) 12/12/23 04:55 BUN 24 mg/dL (7-18) H 12/12/23 04:55 Creatinine 1.50 mg/dL (0.70-1.30) H 12/12/23 04:55 Glucose 167 mg/dL (74-106) H 12/12/23 04:55 Uric Acid 8.1 mg/dL (3.5-7.2) H 12/08/23 08:34 Phosphorus 2.8 mg/dL (2.5-4.9) 12/11/23 04:58 Magnesium 2.1 mg/dL (1.6-2.4) 12/11/23 04:58 Total Bilirubin 0.7 mg/dL (0.2-1.0) 12/08/23 03:04 AST 21 U/L (15-37) 12/08/23 03:04 ALT 21 U/L (16-61) 12/08/23 03:04 Alkaline Phosphatase 158 U/L (45-117) H 12/08/23 03:04 Home Medications: Aspirin [Aspirin EC 81 MG] 81 mg PO DAILY #30 tab 12/06/22 Atorvastatin Calcium [Lipitor] 40 mg PO BEDTIME #30 tab 12/06/22 Amiloride HCl 5 mg PO DAILY #30 tab 12/12/23 Atorvastatin Calcium 40 mg PO DAILY #30 tab 12/12/23 Metformin HCl [Glucophage*] 500 mg PO BIDWM #60 tab 12/12/23 Midodrine HCl 5 mg PO TID #90 tab 12/12/23 Torsemide [Demadex*] 40 mg PO DAILY #60 tab 12/12/23 New Medications: Amiloride HCl 5 mg PO DAILY #30 tab Atorvastatin Calcium 40 mg PO DAILY #30 tab Torsemide [Demadex*] 40 mg PO DAILY #60 tab Metformin HCl [Glucophage*] 500 mg PO BIDWM #60 tab Midodrine HCl 5 mg PO TID #90 tab Physician Discharge Instructions: Patient was admitted to the hospital for dyspnea, edema secondary to acute on chronic systolic congestive heart failure. He had been without insurance coverage is and did not have any medications. He was diuresed during his hospital stay, he did develop an acute kidney injury which has improved. Peak creatinine was 2.09, down to 1.5 today. Echocardiogram was performed during his hospitalization which revealed severely depressed left ventricular ejection fraction 20 to 25%, severe global hypokinesis, moderate mitral regurgitation, moderate to severe tricuspid regur gitation, severe pulmonary hypertension with right ventricular pressure greater than 60 mmHg, severe diastolic dysfunction. Patient was seen by cardiology and nephrology, blood pressure was running low which made difficult for diuresis, patient was started on midodrine. He has been stable on midodrine, amiloride, torsemide for the past couple of days. Lower extremity Ciara significantly improved. At discharge patient will be prescribed the following medications Atorvastatin 40 mg once daily Amiloride 5 mg daily Torsemide 40 mg daily Midodrine 5 mg 3 times daily Metformin 500 mg by mouth twice daily to be further titrated by his primary care doctor-creatinine clearance 69 at discharge He also takes daily aspirin 81 mg which he is to continue Discussed daily weights and monitoring blood pressure, if blood pressures persistently elevated greater than 130 systolic may hold midodrine. Also discussed obtaining glucometer, monitoring blood glucose at home and following up PCP regarding diabetes Please follow-up with Dr. Paulino in 1 to 2 weeks Follow-up with nephrologyDrChino Blankenship in 1 week Please establish yourself with and follow-up with a primary care doctor in the next 1 week Diet: AHA Activity: Ad teddy Followup: Andry Blankenship DO [ACTIVE - CAN ADMIT] - 1 Week NONE,NONE [Primary Care Provider] - 1 Week Bryan Dejesus MD [ACTIVE - CAN ADMIT] - 1-2 Weeks Time spent managing pt's care (in minutes): 35
== END 2023-12-12 12:30 | disposition home or self-care (01) | DRG 291 ==
LOC: ER 12:19 → ERHOLD 15:22 → 2ND 18:20 → OBSVTOIN 12-06 13:03
PROVIDERS: ADMIT Internal Medicine; ATTEND Hospitalist
DX: I13.0 Hypertensive heart and chronic kidney disease with heart failure and stage 1 through stage 4 chronic kidney disease, or unspecified chronic kidney disease (principal); I50.23 Acute on chronic systolic (congestive) heart failure; Z59.00 Homelessness unspecified; N17.9 Acute kidney failure, unspecified; E87.1 Hypo-osmolality and hyponatremia; N18.2 Chronic kidney disease, stage 2 (mild); E11.22 Type 2 diabetes mellitus with diabetic chronic kidney disease; E11.65 Type 2 diabetes mellitus with hyperglycemia; D63.1 Anemia in chronic kidney disease; D50.9 Iron deficiency anemia, unspecified; E87.6 Hypokalemia; I95.9 Hypotension, unspecified; E78.5 Hyperlipidemia, unspecified; L08.89 Other specified local infections of the skin and subcutaneous tissue; I27.20 Pulmonary hypertension, unspecified; I08.1 Rheumatic disorders of both mitral and tricuspid valves; I25.10 Atherosclerotic heart disease of native coronary artery without angina pectoris; I25.2 Old myocardial infarction; F17.210 Nicotine dependence, cigarettes, uncomplicated; T50.2X5A Adverse effect of carbonic-anhydrase inhibitors, benzothiadiazides and other diuretics, initial encounter; R00.0 Tachycardia, unspecified; Z88.8 Allergy status to other drugs, medicaments and biological substances; Z95.5 Presence of coronary angioplasty implant and graft; Z79.84 Long term (current) use of oral hypoglycemic drugs; Z79.82 Long term (current) use of aspirin; Z79.02 Long term (current) use of antithrombotics/antiplatelets; Z79.899 Other long term (current) drug therapy; Z91.148 Patient's other noncompliance with medication regimen for other reason
CPT/HCPCS: 36415; 71045; 80048; 80076; 81001; 82043; 82570; 82728; 82947; 83036; 83540; 83735; 83880; 84100; 84132; 84156; 84439; 84443; 84466; 84484; 84550; 85025; 93005; 93306; 93971; 96374; 99285; G0378; J1644; J1815; J1940; J2916; P9047

== ENCOUNTER 2024-02-10 00:05 | Inpatient (IN) | payer OTHER ==
--- OUTSIDE RECORDS SUMMARY | 2024-02-10 00:15 | XMS REPORT | Continuity of Care Document ---
Author Name Unknown Address [address] [facility] [address] [place] [address] [facility] [address] [facility] [address] [place] [address] Care Team Providers Care Desolderer Name Role Phone FEMI DISLA Primary Care Physician Unavailab AMERICO Jackson Attending Clinician Unav AMERICO Martinez Attending Clinician Unav FRANK Tapia Attending Clinician Unav ailLEIGHANN Bourgeois Attending Clinician Unavailable DEBBI MENDOZA Attending Clinician Unavailable ANNITA GRIJALVA Attending Clinician Unavailable ANNITA GRIJALVA Attending Clinician Unavailable FEMI DISLA Attending Clinician Unavailable DILIP LOUIE Attending Clinician Unavailable Dilip Louie MD Attending Clinician [phone] Doctor Unassigned, [place] Attending Clinician U Debbi Merrill MD Attending Clinician [phone] Margot Castillo Attending Clinician [phone] MARGOT AGRAWAL Attending Clinician UnavailDaisha Lezama Attending Clinician UnavailFemi Benjamin Attending Clinician [phone] Lab, Ang - Db Attending Clinician Unavailable Shari Castro RN Attending Clinician Unavailab shantell Boyer MD, Frank Livingston Attending Clinician + Andrea Rucker MD Attending Clinician + [phone] PIA AVENDANO Attending Clinician Unavailable NEGIN SPAIN Attending Clinician Unavailable Negin Spain MD Attending Clinician [phone] Annabelle Alba Attending Clinician U Pia Ramirez MD Attending Clinician Sayra Fox DO Attending Clinician SAYRA FOX Attending Clinician Unavailab AMERICO Jackson Admitting Clinician UnaNEGIN Rivera Admitting Clinician Unavailable ANNITA GRIJALVA Admitting Clinician Unavailable DEBBI MENDOZA Admitting Clinician Unavailable FRANK BOYER Admitting Clinician Frank Lee MD Admitting Clinician + SAYRA FOX Admitting Clinician Unavailab shantell Payers Payer Name Policy Type Policy Number Effective Date Expirati on Date Source [place] [id number] 2023 00:00:00 2023 00:00:00 Problems Condition Name Condition Details Condition Category Status Onset Date Resolution Date Last Treatment Date Treating Clinician Comments Source HFrEF (heart failure with reduced ejection fraction) HFrEF (heart failure with reduced ejection fraction) Disease Active 7-10 00:00: 00 [facility] Cigarette smoker Cigarette smoker Disease Active 6- 00:00: 00 [facility] Bilateral inguinal hernia without obstructio n or gangrene, recurrence not specified Bilateral inguinal hernia without obstructio n or gangrene, recurrence not specified Disease Active 6-15 00:00: 00 [facility] Type 2 diabetes mellitus without complicati on, without long-term current use of insulin Type 2 diabetes mellitus without complicati on, without long-term current use of insulin Disease Active 3- 00:00: 00 [facility] Obesity (BMI 30-39.9) Obesity (BMI 30-39.9) Disease Active 2-25 00:00: 00 [facility] Heart failure Heart failure Disease Active 2-24 00:00: 00 [facility] CAD in [place] artery CAD in [place] artery Disease Active 1-26 00:00: 00 [facility] Cardiomega ly Cardiomega ly Disease Active 12-21 00:00: 00 [facility] CHF (congestiv e heart failure) CHF (congestiv e heart failure) Disease Active 12-21 00:00: 00 [facility] Cholelithi asis Cholelithi asis Disease Active 12-21 00:00: 00 [facility] Dyslipidem ia Dyslipidem ia Disease Active 12-21 00:00: 00 [facility] H/O heart artery stent H/O heart artery stent Disease Active 12-21 00:00: 00 Overview: Formattin g of this note might be different from the original. x2 right [facility] HTN (hypertens ion) HTN (hypertens ion) Disease Active 12-21 00:00: 00 [facility] Unilateral inguinal hernia, without obstructio n or gangrene, not specified as recurrent Unilateral inguinal hernia, without obstructio n or gangrene, not specified as recurrent Disease Active 12-21 00:00: 00 Overview: Formattin g of this note might be different from the original. bilateral [facility] No known active problems No known active problems Disease [facility] Allergies, Adverse Reactions, Alerts Allergy Name Allergy Type Status Severity Reaction(s) Onset Date Inactive Date Treating Clinician Comments Source MORPHINE DRUG INGREDI Active N/V 08-06 00:00: 00 [facility] Morphine Propensi ty to adverse reaction s Active Nausea and/or Vomiting 08-06 00:00: 00 [facility] Social History Social Habit Start Date Stop Date Quantity Comments Source History SDOH Social Connections Get Together [facility] History SDOH Social Connections 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 [facility] History SDOH Social Connections Membership [facility] History SDOH Social Connections Meetings [facility] Gender identity [facility] of [facility] function 2023-07-06 00:00:00 2023-07-06 00:00:00 [facility] Exposure to SARS-CoV-2 (event) 2023-04-08 00:00:00 2023-04-18 12:29:00 Not sure [facility] History SDOH Financial 2023-01-23 00:00:00 2023-01-23 00:00:00 1 [facility] History SDOH Food Worry 2023-01-23 00:00:00 2023-01-23 00:00:00 1 [facility] History SDOH Food Scarcity 2023-01-23 00:00:00 2023-01-23 00:00:00 2 [facility] History SDOH Transport Med 2023-01-23 00:00:00 2023-01-23 00:00:00 1 [facility] History SDOH Transport Non-Med 2023-01-23 00:00:00 2023-01-23 00:00:00 1 [facility] History SDOH Alcohol Frequency 2023-01-22 00:00:00 2023-01-22 00:00:00 1 [facility] History SDOH Alcohol Std Drinks 2023-01-22 00:00:00 2023-01-22 00:00:00 0 [facility] History SDOH Alcohol Binge 2023-01-22 00:00:00 2023-01-22 00:00:00 1 [facility] History SDOH Social Connections Phone 2023-01-22 00:00:00 2023-01-22 00:00:00 5 [facility] History SDOH Social Connections Living 2023-01-22 00:00:00 2023-01-22 00:00:00 7 [facility] History SDOH Physical Activity DPW 2023-01-22 00:00:00 2023-01-22 00:00:00 0 [facility] History SDOH Physical Activity MPS 2023-01-22 00:00:00 2023-01-22 00:00:00 0 [facility] Cigarettes smoked current (pack per day) - Reported 2023-01-20 00:00:00 2023-01-20 00:00:00 [facility] Cigarette pack-years 2023-01-20 00:00:00 2023-01-20 00:00:00 [facility] Tobacco use and exposure 2023-01-20 00:00:00 2023-01-20 00:00:00 Smokeless tobacco non-user [facility] Alcohol intake 2023-01-20 00:00:00 2023-01-20 00:00:00 .14 /d [facility] Alcohol Comment 2022-12-21 00:00:00 2022-12-21 00:00:00 Rarely [facility] History of tobacco use 2018-09-15 00:00:00 Passive smoker [facility] Sex Ass[birth year] At 1965 00:00:00 1965 00:00:00 [facility] Smoking Status Start Date Stop Date Source Smokes tobacco daily 2023-01-20 00:00:00 [facility] Ex-smoker 2019-09-15 00:00:00 2019-09-[facility] Ordered Medication Name Filled Medication Name Start Date Stop Date Current Medication? Ordering Clinician Indication Dosage Frequency Signature (SIG) Comments Components Source losartan (COZAAR) tablet 25 mg 07-17 14:00: 00 07-16 20:05 :13 No [id number] 25mg [facility] losartan (COZAAR) tablet 25 mg 07-17 14:00: 00 07-16 20:05 :13 No [id number] 25mg [facility] losartan (COZAAR) tablet 25 mg 07-17 14:00: 00 07-16 20:05 :13 No [id number] 25mg [facility] losartan 25 mg tablet 07-16 00:00: 00 Yes [id number] 25mg Take 1 tablet by mouth in the morning. [facility] losartan 25 mg tablet 07-16 00:00: 00 Yes [id number] 25mg Take 1 tablet by mouth in the morning. [facility] losartan 25 mg tablet 07-16 00:00: 00 Yes [id number] 25mg Take 1 tablet by mouth in the morning. [facility] losartan 25 mg tablet 07-16 00:00: 00 Yes [id number] 25mg Take 1 tablet by mouth in the morning. [facility] FENTanyl PF (SUBLIMAZE (PF)) injection 25 mcg 07-06 20:48: 25 Yes 25ug 25 mcg, Slow IV Push, Q5MIN PRN, 4 doses, Starting on Sun07/06/23 at 1548, Until Discontinu ed, Routine, Pain (scale 4-6), PACU [facility] ondansetron (ZOFRAN (PF)) injection 4 mg 07-06 20:48: 25 Yes 4mg 4 mg, Slow IV Push, PRN, 1 dose, Starting on Sun07/06/23 at 1548, Until Discontinu ed, Routine, Nausea and Vomiting (N/V), PACU [facility] FENTanyl PF (SUBLIMAZE (PF)) injection 25 mcg 07-06 20:48: 25 07-07 00:49 :40 No 25ug 25 mcg, Slow IV Push, Q5MIN PRN, 4 doses, Starting on Sun07/06/23 at 1548, Until Sun07/06/23 at 1949, Routine, Pain (scale 4-6), PACU [facility] ondansetron (ZOFRAN (PF)) injection 4 mg 07-06 20:48: 25 07-07 00:49 :40 No 4mg 4 mg, Slow IV Push, PRN, 1 dose, Starting on Sun07/06/23 at 1548, Until Sun07/06/23 at 1949, Routine, Nausea and Vomiting (N/V), PACU [facility] bupivacaine (preserv free) (SENSORCAIN E MPF) 0.25 % (2.5 mg/mL) 30 mL, BUPivacaine liposome (PF) (EXPAREL (PF)) 1.3 % (13.3 mg/mL) 266 mg 07-06 18:25: 00 07-06 21:05 :18 No PRN, Starting on Sun07/06/23 at 1325, Intra-op [facility] sodium chloride 0.9 % irrigation solution 07-06 18:24: 00 07-06 21:05 :18 No PRN, Starting on Sun07/06/23 at 1324, Until Sun07/06/23 at 1605, Intra-op [facility] lactated ringers IV infusion 1,000 mL 07-06 15:30: 00 07-06 15:32 :00 No 1000mL at 42 mL/hr, 1,000 mL, IV Infusion, ONCE, 1 dose, On Sun07/06/23 at 1030, Routine, DSU Pre-op [facility] lactated ringers IV infusion 1,000 mL 07-06 15:30: 00 07-06 15:32 :00 No 1000mL at 42 mL/hr, 1,000 mL, IV Infusion, ONCE, 1 dose, On Sun07/06/23 at 1030, Routine, DSU Pre-op [facility] HYDROcodone -acetaminop hen (NORCO) 10-325 mg tablet 07-06 00:00: 00 07-14 04:59 :00 No [id number] 1{tbl} Take 1 tablet by mouth every 6 (six) hours as needed for Pain (scale 7-10) for up to 7 days. Indication s: [facility] HY[facility] -acetaminop hen (NORCO) 10-325 mg tablet 07-06 00:00: 00 07-14 04:59 :00 No [id number] 1{tbl} Take 1 tablet by mouth every 6 (six) hours as needed for Pain (scale 7-10) for up to 7 days. Indication s: acute pain [facility] HYDROcodone -acetaminop hen (NORCO) 10-325 mg tablet 07-06 00:00: 00 07-14 04:59 :00 No [id number] 1{tbl} Take 1 tablet by mouth every 6 (six) hours as needed for Pain (scale 7-10) for up to 7 days. Indication s: acute pain [facility] dapaglifloz in (FARXIGA) 10 mg tablet 6-15 00:00: 00 Yes [id number] 10mg Take 1 tablet by mouth in the morning. [facility] dapaglifloz in (FARXIGA) 10 mg tablet 2023-0 6-15 00:00: 00 Yes [id number] 10mg Take 1 tablet by mouth in the morning. [facility] dapaglifloz in (FARXIGA) 10 mg tablet 2023-0 6-15 00:00: 00 Yes [id number] 10mg Take 1 tablet by mouth in the morning. [facility] dapaglifloz in (FARXIGA) 10 mg tablet 2023-0 6-15 00:00: 00 Yes [id number] 10mg Take 1 tablet by mouth in the morning. [facility]loz in [facility] mg tablet 2023-0 6-15 00:00: 00 Yes [id number] 10mg Take 1 tablet by mouth in the morning. [facility]lo[facility] in [facility] 10 mg tablet 2023-0 6-15 00:00: 00 Yes [id number] 10mg Take 1 tablet by mouth in the morning. [facility] dapaglifloz in ([facility] 10 mg tablet 2023-0 6-15 00:00: 00 Yes [id number] 10mg Take 1 tablet by mouth in the morning. [facility] dapaglifloz in ([facility] 10 mg tablet 2023-0 6-15 00:00: 00 Yes [id number] 10mg Take 1 tablet by mouth in the morning. [facility] dapaglifloz in ([facility] 10 mg tablet 2023-0 6-15 00:00: 00 Yes [id number] 10mg Take 1 tablet by mouth in the morning. [facility] dapaglifloz in ([facility] 10 mg tablet 2023-0 6-15 00:00: 00 Yes [id number] 10mg Take 1 tablet by mouth in the morning. [facility] dapaglifloz in ([facility] 10 mg tablet 2023-0 6-15 00:00: 00 Yes [id number] 10mg Take 1 tablet by mouth in the morning. [facility] dapaglifloz in (FARXIGA) 10 mg tablet 2023-0 6-15 00:00: 00 Yes [id number] 10mg Take 1 tablet by mouth in the morning. [facility] d[facility]aglifloz in ([facility] 10 mg tablet 2023-0 6-15 00:00: 00 Yes [id number] 10mg Take 1 tablet by mouth in the morning. [facility] dapaglifloz in ([facility]) 10 mg tablet 2023-0 6-15 00:00: 00 Yes [id number] 10mg Take 1 tablet by mouth in the morning. [facility] dapaglifloz in ([facility]) 10 mg tablet 2023-0 6-15 00:00: 00 Yes [id number] 10mg Take 1 tablet by mouth in the morning. [facility] dapaglifloz in ([facility]) 10 mg tablet 2023-0 6-15 00:00: 00 Yes [id number] 10mg Take 1 tablet by mouth in the morning. [facility] dapaglifloz in ([facility]) 10 mg tablet 2023-0 6-15 00:00: 00 Yes [id number] 10mg Take 1 tablet by mouth in the morning. [facility] dapaglifloz in ([facility] 10 mg tablet 2023-0 6-15 00:00: 00 Yes [id number] 10mg Take 1 tablet by mouth in the morning. [facility] dapaglifloz in ([facility]) 10 mg tablet 2023-0 6-15 00:00: 00 Yes [id number] 10mg Take 1 tablet by mouth in the morning. [facility] dapaglifloz in ([facility] 10 mg tablet 2023-0 6-15 00:00: 00 Yes [id number] 10mg Take 1 tablet by mouth in the morning. [facility] dapaglifloz in ([facility] 10 mg tablet 2023-0 6-15 00:00: 00 Yes [id number] 10mg Take 1 tablet by mouth in the morning. [facility] dapaglifloz in ([facility]) 10 mg tablet 2023-0 6-15 00:00: 00 Yes [id number] 10mg Take 1 tablet by mouth in the morning. [facility] dapaglifloz in ([facility] 10 mg tablet 3-0 6-15 00:00: 00 Yes [id number] 10mg Take 1 tablet by mouth in the morning. [facility] dapaglifloz in (FARXIGA) 10 mg tablet 2023-0 6-15 00:00: 00 Yes [id number] 10mg Take 1 tablet by mouth in the morning. [facility] dapaglifloz in ([facility] 10 mg tablet 2023-0 6-15 00:00: 00 Yes [id number] 10mg Take 1 tablet by mouth in the morning. [facility] dapaglifloz in ([facility] 10 mg tablet 3-0 6-15 00:00: 00 Yes [id number] 10mg Take 1 tablet by mouth in the morning. [facility] dapaglifloz in ([facility]) 10 mg tablet 2023-0 6-15 00:00: 00 Yes [id number] 10mg Take 1 tablet by mouth in the morning. [facility] dapaglifloz in ([facility] 10 mg tablet 3-0 6-15 00:00: 00 Yes [id number] 10mg Take 1 tablet by mouth in the morning. [facility] SITagliptin phosphate 100 mg tablet 2022-0 5-18 00:00: 00 Yes [id number] 100mg Take 1 tablet by mouth in the morning. [facility] SITagliptin phosphate 100 mg tablet 2022-0 5-18 00:00: 00 18 00:00 :00 No [id number] 100mg Take 1 tablet by mouth in the morning. [facility] SITagliptin phosphate 100 mg tablet 3-0 5-18 00:00: 00 18 00:00 :00 No [id number] 100mg Take 1 tablet by mouth in the morning. [facility] SITagliptin phosphate 100 mg tablet 3-0 5-18 00:00: 00 18 00:00 :00 No [id number] 100mg Take 1 tablet by mouth in the morning. [facility] metoprolol succinate XL (TOPROL XL) tablet 37.5 mg 01-25 02:00: 00 Yes 37.5mg 37.5 mg, Oral, BID, First dose (after last modificati on) on Sun01/24/23 at 1999, Until Discontinu ed, Routine [facility] lisinopriL (PRINIVIL,Z ESTRIL) tablet 2.5 mg 01-24 15:00: 00 Yes 2.5mg 2.5 mg, Oral, DAILY, First dose (after last modificati on) on Sun01/24/23 at 0900, Until Discontinu ed, Routine [facility] lisinopriL (PRINIVIL,Z ESTRIL) tablet 2.5 mg 01-24 15:00: 00 01-24 14:41 :15 No 2.5mg 2.5 mg, Oral, DAILY, First dose (after last modificati on) on Sun01/24/23 at 0900, Until Discontinu ed, Routine [facility] metoprolol succinate XL (TOPROL XL) tablet 25 mg 01-24 14:00: 00 Yes 25mg 25 mg, Oral, BID, First dose on Sun01/24/23 at 0800, Until Discontinu ed, Routine [facility] metoprolol succinate XL (TOPROL XL) tablet 25 mg 01-24 14:00: 00 01-24 14:41 :15 No 25mg 25 mg, Oral, BID, First dose on Sun01/24/23 at 0800, Until Discontinu ed, Routine [facility] metoprolol tartrate (LOPRESSOR) tablet 25 mg 01-24 02:00: 00 01-24 13:59 :00 No 25mg 25 mg, Oral, BID, 1 dose, First dose on Sun01/23/23 at 1999, Routine [facility] metoprolol tartrate (LOPRESSOR) tablet 25 mg 01-24 02:00: 00 01-24 02:33 :00 No 25mg 25 mg, Oral, BID, 1 dose, First dose on Sun01/23/23 at 1999, Routine [facility] furosemide 80 mg tablet 2022-0 3 00:00: 00 Yes [id number] 80mg Take 1 tablet by mouth every morning. [facility] furosemide 20 mg tablet 0 01-24 00:00: 00 Yes [id number] 40mg Take 2 tablets by mouth every evening. [facility] metoprolol succinate XL 25 mg 24 hr tablet 2022-0 3 00:00: 00 Yes [id number] 37.5mg Take 1.5 tablets by mouth in the morning and 1.5 tablets in the evening. [facility] furosemide 80 mg tablet 0 01-24 00:00: 00 Yes [id number] 80mg Take 1 tablet by mouth every morning. [facility] furosemide 20 mg tablet 0 01-24 00:00: 00 Yes [id number] 40mg Take 2 tablets by mouth every evening. [facility] metoprolol succinate XL 25 mg 24 hr tablet 0 01-24 00:00: 00 Yes [id number] 37.5mg Take 1.5 tablets by mouth in the morning and 1.5 tablets in the evening. [facility] furosemide 80 mg tablet 0 01-24 00:00: 00 Yes [id number] 80mg Take 1 tablet by mouth every morning. [facility] furosemide 20 mg tablet 0 01-24 00:00: 00 Yes [id number] 40mg Take 2 tablets by mouth every evening. [facility] metoprolol succinate XL 25 mg 24 hr tablet 0 01-24 00:00: 00 Yes [id number] 37.5mg Take 1.5 tablets by mouth in the morning and 1.5 tablets in the evening. [facility] furosemide 80 mg tablet 0 01-24 00:00: 00 Yes [id number] 80mg Take 1 tablet by mouth every morning. [facility] furosemide 20 mg tablet 2022-0 01-24 00:00: 00 Yes [id number] 40mg Take 2 tablets by mouth every evening. [facility] metoprolol succinate XL 25 mg 24 hr tablet 2022-0 01-24 00:00: 00 Yes [id number] 37.5mg Take 1.5 tablets by mouth in the morning and 1.5 tablets in the evening. [facility] furosemide 80 mg tablet 2022-0 3 00:00: 00 Yes [id number] 80mg Take 1 tablet by mouth every morning. [facility] furosemide 20 mg tablet 0 01-24 00:00: 00 Yes [id number] 40mg Take 2 tablets by mouth every evening. [facility] metoprolol succinate XL 25 mg 24 hr tablet 2022-0 3 00:00: 00 Yes [id number] 37.5mg Take 1.5 tablets by mouth in the morning and 1.5 tablets in the evening. [facility] furosemide 80 mg tablet 2022-0 01-24 00:00: 00 Yes [id number] 80mg Take 1 tablet by mouth every morning. [facility] furosemide 20 mg tablet 2022-0 01-24 00:00: 00 Yes [id number] 40mg Take 2 tablets by mouth every evening. [facility] metoprolol succinate XL 25 mg 24 hr tablet 2022-0 01-24 00:00: 00 Yes [id number] 37.5mg Take 1.5 tablets by mouth in the morning and 1.5 tablets in the evening. [facility] furosemide 80 mg tablet 2022-0 01-24 00:00: 00 Yes [id number] 80mg Take 1 tablet by mouth every morning. [facility] furosemide 20 mg tablet 2022-0 01-24 00:00: 00 Yes [id number] 40mg Take 2 tablets by mouth every evening. [facility] metoprolol succinate XL 25 mg 24 hr tablet 2022-0 3 00:00: 00 Yes [id number] 37.5mg Take 1.5 tablets by mouth in the morning and 1.5 tablets in the evening. [facility] furosemide 80 mg tablet 2022-0 3 00:00: 00 Yes [id number] 80mg Take 1 tablet by mouth every morning. [facility] furosemide 20 mg tablet 2022-0 01-24 00:00: 00 Yes [id number] 40mg Take 2 tablets by mouth every evening. [facility] metoprolol succinate XL 25 mg 24 hr tablet 2022-0 3 00:00: 00 Yes [id number] 37.5mg Take 1.5 tablets by mouth in the morning and 1.5 tablets in the evening. [facility] furosemide 80 mg tablet 2022-0 3 00:00: 00 Yes [id number] 80mg Take 1 tablet by mouth every morning. [facility] furosemide 20 mg tablet 2022-0 01-24 00:00: 00 Yes [id number] 40mg Take 2 tablets by mouth every evening. [facility] metoprolol succinate XL 25 mg 24 hr tablet 2022-0 01-24 00:00: 00 Yes [id number] 37.5mg Take 1.5 tablets by mouth in the morning and 1.5 tablets in the evening. [facility] furosemide 80 mg tablet 2022-0 01-24 00:00: 00 Yes [id number] 80mg Take 1 tablet by mouth every morning. [facility] furosemide 20 mg tablet 2022-0 01-24 00:00: 00 Yes [id number] 40mg Take 2 tablets by mouth every evening. [facility] metoprolol succinate XL 25 mg 24 hr tablet 2022-0 01-24 00:00: 00 Yes [id number] 37.5mg Take 1.5 tablets by mouth in the morning and 1.5 tablets in the evening. [facility] furosemide 80 mg tablet 2022-0 01-24 00:00: 00 Yes [id number] 80mg Take 1 tablet by mouth every morning. [facility] furosemide 20 mg tablet 2022-0 01-24 00:00: 00 Yes [id number] 40mg Take 2 tablets by mouth every evening. [facility] metoprolol succinate XL 25 mg 24 hr tablet 2022-0 01-24 00:00: 00 Yes [id number] 37.5mg Take 1.5 tablets by mouth in the morning and 1.5 tablets in the evening. [facility] furosemide 80 mg tablet 2022-0 3 00:00: 00 Yes [id number] 80mg Take 1 tablet by mouth every morning. [facility] furosemide 20 mg tablet 3-0 3 00:00: 00 Yes [id number] 40mg Take 2 tablets by mouth every evening. [facility] metoprolol succinate XL 25 mg 24 hr tablet 0 01-24 00:00: 00 Yes [id number] 37.5mg Take 1.5 tablets by mouth in the morning and 1.5 tablets in the evening. [facility] furosemide 80 mg tablet 0 01-24 00:00: 00 Yes [id number] 80mg Take 1 tablet by mouth every morning. [facility] furosemide 20 mg tablet 0 01-24 00:00: 00 Yes [id number] 40mg Take 2 tablets by mouth every evening. [facility] metoprolol succinate XL 25 mg 24 hr tablet 0 01-24 00:00: 00 Yes [id number] 37.5mg Take 1.5 tablets by mouth in the morning and 1.5 tablets in the evening. [facility] furosemide 80 mg tablet 01-24 00:00: 00 Yes [id number] 80mg Take 1 tablet by mouth every morning. [facility] furosemide 20 mg tablet 01-24 00:00: 00 Yes [id number] 40mg Take 2 tablets by mouth every evening. [facility] metoprolol succinate XL 25 mg 24 hr tablet 0 01-24 00:00: 00 Yes [id number] 37.5mg Take 1.5 tablets by mouth in the morning and 1.5 tablets in the evening. [facility] furosemide 80 mg tablet 01-24 00:00: 00 Yes [id number] 80mg Take 1 tablet by mouth every morning. [facility] furosemide 20 mg tablet 0 01-24 00:00: 00 Yes [id number] 40mg Take 2 tablets by mouth every evening. [facility] metoprolol succinate XL 25 mg 24 hr tablet 0 01-24 00:00: 00 Yes [id number] 37.5mg Take 1.5 tablets by mouth in the morning and 1.5 tablets in the evening. [facility] dapaglifloz in (FARXIGA) 10 mg tablet 2022-0 01-24 00:00: 00 Yes [id number] 10mg Take 1 tablet by mouth in the morning. [facility] furosemide 80 mg tablet 2022-0 3 00:00: 00 Yes [id number] 80mg Take 1 tablet by mouth every morning. [facility] furosemide 20 mg tablet 2022-0 3 00:00: 00 Yes [id number] 40mg Take 2 tablets by mouth every evening. [facility] metoprolol succinate XL 25 mg 24 hr tablet 2022-0 3- 00:00: 00 Yes [id number] 37.5mg Take 1.5 tablets by mouth in the morning and 1.5 tablets in the evening. [facility] dapaglifloz in ([facility]) 10 mg tablet 2022-0 3 00:00: 00 Yes [id number] 10mg Take 1 tablet by mouth in the morning. [facility] furosemide 80 mg tablet 2022-0 01-24 00:00: 00 Yes [id number] 80mg Take 1 tablet by mouth every morning. [facility] furosemide 20 mg tablet 2022-0 01-24 00:00: 00 Yes [id number] 40mg Take 2 tablets by mouth every evening. [facility] metoprolol succinate XL 25 mg 24 hr tablet 2022-0 01-24 00:00: 00 Yes [id number] 37.5mg Take 1.5 tablets by mouth in the morning and 1.5 tablets in the evening. [facility] dapaglifloz in ([facility]) 10 mg tablet 2022-0 01-24 00:00: 00 Yes [id number] 10mg Take 1 tablet by mouth in the morning. [facility] furosemide 80 mg tablet 2022-0 3 00:00: 00 Yes [id number] 80mg Take 1 tablet by mouth every morning. [facility] furosemide 20 mg tablet 2022-0 3 00:00: 00 Yes [id number] 40mg Take 2 tablets by mouth every evening. [facility] metoprolol succinate XL 25 mg 24 hr tablet 2022-0 3 00:00: 00 Yes [id number] 37.5mg Take 1.5 tablets by mouth in the morning and 1.5 tablets in the evening. [facility]z [facility] 10 mg tablet 3-0 3- 00:00: 00 Yes [id number] 10mg Take 1 tablet by mouth in the morning. [facility] furosemide 80 mg tablet 2022-0 3- 00:00: 00 Yes [id number] 80mg Take 1 tablet by mouth every morning. [facility] furosemide 20 mg tablet 2022-0 3 00:00: 00 Yes [id number] 40mg Take 2 tablets by mouth every evening. [facility] metoprolol succinate XL 25 mg 24 hr tablet 2022-0 3 00:00: 00 Yes [id number] 37.5mg Take 1.5 tablets by mouth in the morning and 1.5 tablets in the evening. [facility] dapaglifloz in ([facility]) 10 mg tablet 2022-0 3 00:00: 00 Yes [id number] 10mg Take 1 tablet by mouth in the morning. [facility] furosemide 80 mg tablet 2022-0 3 00:00: 00 Yes [id number] 80mg Take 1 tablet by mouth every morning. [facility] furosemide 20 mg tablet 2022-0 01-24 00:00: 00 Yes [id number] 40mg Take 2 tablets by mouth every evening. [facility] metoprolol succinate XL 25 mg 24 hr tablet 2022-0 3 00:00: 00 Yes [id number] 37.5mg Take 1.5 tablets by mouth in the morning and 1.5 tablets in the evening. [facility] dapaglifloz in ([facility]) 10 mg tablet 2022-0 3 00:00: 00 Yes [id number] 10mg Take 1 tablet by mouth in the morning. [facility] furosemide 80 mg tablet 3-0 3 00:00: 00 Yes [id number] 80mg Take 1 tablet by mouth every morning. [facility] furosemide 20 mg tablet 3-0 3 00:00: 00 Yes [id number] 40mg Take 2 tablets by mouth every evening. [facility] metoprolol succinate XL 25 mg 24 hr tablet 3-0 3 00:00: 00 Yes [id number] 37.5mg Take 1.5 tablets by mouth in the morning and 1.5 tablets in the evening. [facility]z [facility] 10 mg tablet 3-0 3 00:00: 00 Yes [id number] 10mg Take 1 tablet by mouth in the morning. [facility] furosemide 80 mg tablet 2022-0 3- 00:00: 00 Yes [id number] 80mg Take 1 tablet by mouth every morning. [facility] furosemide 20 mg tablet 2022-0 3 00:00: 00 Yes [id number] 40mg Take 2 tablets by mouth every evening. [facility] metoprolol succinate XL 25 mg 24 hr tablet 2022-0 3 00:00: 00 Yes [id number] 37.5mg Take 1.5 tablets by mouth in the morning and 1.5 tablets in the evening. [facility] dapaglifloz in ([facility]) 10 mg tablet 2022-0 01-24 00:00: 00 Yes [id number] 10mg Take 1 tablet by mouth in the morning. [facility] furosemide 80 mg tablet 2022-0 3 00:00: 00 Yes [id number] 80mg Take 1 tablet by mouth every morning. [facility] furosemide 20 mg tablet 3-0 01-24 00:00: 00 Yes [id number] 40mg Take 2 tablets by mouth every evening. [facility] metoprolol succinate XL 25 mg 24 hr tablet 2022-0 01-24 00:00: 00 Yes [id number] 37.5mg Take 1.5 tablets by mouth in the morning and 1.5 tablets in the evening. [facility]aglifloz in [facility] 10 mg tablet 3-0 3- 00:00: 00 Yes [id number] 10mg Take 1 tablet by mouth in the morning. [facility] furosemide 80 mg tablet 3-0 3- 00:00: 00 Yes [id number] 80mg Take 1 tablet by mouth every morning. [facility] furosemide 20 mg tablet 3-0 3- 00:00: 00 Yes [id number] 40mg Take 2 tablets by mouth every evening. [facility] metoprolol succinate XL 25 mg 24 hr tablet 3-0 3- 00:00: 00 Yes [id number] 37.5mg Take 1.5 tablets by mouth in the morning and 1.5 tablets in the evening. [facility]aglifloz in [facility] 10 mg tablet 2022-0 3- 00:00: 00 Yes [id number] 10mg Take 1 tablet by mouth in the morning. [facility] furosemide 80 mg tablet 3-0 3 00:00: 00 Yes [id number] 80mg Take 1 tablet by mouth every morning. [facility] furosemide 20 mg tablet 3-0 01-24 00:00: 00 Yes [id number] 40mg Take 2 tablets by mouth every evening. [facility] metoprolol succinate XL 25 mg 24 hr tablet 2022-0 01-24 00:00: 00 Yes [id number] 37.5mg Take 1.5 tablets by mouth in the morning and 1.5 tablets in the evening. [facility] dapaglifloz in ([facility]) 10 mg tablet 2022-0 3 00:00: 00 Yes [id number] 10mg Take 1 tablet by mouth in the morning. [facility] furosemide 80 mg tablet 3-0 01-24 00:00: 00 Yes [id number] 80mg Take 1 tablet by mouth every morning. [facility] furosemide 20 mg tablet 2022-0 01-24 00:00: 00 Yes [id number] 40mg Take 2 tablets by mouth every evening. [facility] metoprolol succinate XL 25 mg 24 hr tablet 2022-0 3 00:00: 00 Yes [id number] 37.5mg Take 1.5 tablets by mouth in the morning and 1.5 tablets in the evening. [facility] dapaglifloz in ([facility]) 10 mg tablet 3-0 3 00:00: 00 Yes [id number] 10mg Take 1 tablet by mouth in the morning. [facility] furosemide 80 mg tablet 3-0 3- 00:00: 00 Yes [id number] 80mg Take 1 tablet by mouth every morning. [facility] furosemide 20 mg tablet 3-0 3- 00:00: 00 Yes [id number] 40mg Take 2 tablets by mouth every evening. [facility] metoprolol succinate XL 25 mg 24 hr tablet 3-0 3- 00:00: 00 Yes [id number] 37.5mg Take 1.5 tablets by mouth in the morning and 1.5 tablets in the evening. [facility]aglifloz in [facility] 10 mg tablet 3-0 3- 00:00: 00 Yes [id number] 10mg Take 1 tablet by mouth in the morning. [facility] furosemide 80 mg tablet 3-0 3- 00:00: 00 Yes [id number] 80mg Take 1 tablet by mouth every morning. [facility] furosemide 20 mg tablet 3-0 01-24 00:00: 00 Yes [id number] 40mg Take 2 tablets by mouth every evening. [facility] metoprolol succinate XL 25 mg 24 hr tablet 3-0 3- 00:00: 00 Yes [id number] 37.5mg Take 1.5 tablets by mouth in the morning and 1.5 tablets in the evening. [facility] dapaglifloz in ([facility]) 10 mg tablet 2022-0 3 00:00: 00 Yes [id number] 10mg Take 1 tablet by mouth in the morning. [facility] furosemide 80 mg tablet 3-0 3 00:00: 00 Yes [id number] 80mg Take 1 tablet by mouth every morning. [facility] furosemide 20 mg tablet 3-0 3 00:00: 00 Yes [id number] 40mg Take 2 tablets by mouth every evening. [facility] metoprolol succinate XL 25 mg 24 hr tablet 3-0 3 00:00: 00 Yes [id number] 37.5mg Take 1.5 tablets by mouth in the morning and 1.5 tablets in the evening. [facility] dapaglifloz in ([facility]) 10 mg tablet 3-0 3- 00:00: 00 Yes [id number] 10mg Take 1 tablet by mouth in the morning. [facility] furosemide 80 mg tablet 3-0 3- 00:00: 00 Yes [id number] 80mg Take 1 tablet by mouth every morning. [facility] furosemide 20 mg tablet 2022-0 3 00:00: 00 Yes [id number] 40mg Take 2 tablets by mouth every evening. [facility] metoprolol succinate XL 25 mg 24 hr tablet 2022-0 3 00:00: 00 Yes [id number] 37.5mg Take 1.5 tablets by mouth in the morning and 1.5 tablets in the evening. [facility]aglifloz in [facility] 10 mg tablet 2022-0 3- 00:00: 00 Yes [id number] 10mg Take 1 tablet by mouth in the morning. [facility] furosemide 80 mg tablet 2022-0 3 00:00: 00 Yes [id number] 80mg Take 1 tablet by mouth every morning. [facility] furosemide 20 mg tablet 2022-0 01-24 00:00: 00 Yes [id number] 40mg Take 2 tablets by mouth every evening. [facility] metoprolol succinate XL 25 mg 24 hr tablet 2022-0 3 00:00: 00 Yes [id number] 37.5mg Take 1.5 tablets by mouth in the morning and 1.5 tablets in the evening. [facility]apaglifloz in ([facility] 10 mg tablet 2022-0 3 00:00: 00 Yes [id number] 10mg Take 1 tablet by mouth in the morning. [facility] furosemide 80 mg tablet 2022-0 3 00:00: 00 Yes [id number] 80mg Take 1 tablet by mouth every morning. [facility] furosemide 20 mg tablet 2022-0 3 00:00: 00 Yes [id number] 40mg Take 2 tablets by mouth every evening. [facility] metoprolol succinate XL 25 mg 24 hr tablet 2022-0 3 00:00: 00 Yes [id number] 37.5mg Take 1.5 tablets by mouth in the morning and 1.5 tablets in the evening. [facility] furosemide 80 mg tablet 3-0 3- 00:00: 00 Yes [id number] 80mg Take 1 tablet by mouth every morning. [facility] furosemide 20 mg tablet 2023-0 3-01 00:00: 00 Yes [id number] 40mg Take 2 tablets by mouth every evening. [facility] metoprolol succinate XL 25 mg 24 hr tablet 0 3 00:00: 00 Yes [id number] 37.5mg Take 1.5 tablets by mouth in the morning and 1.5 tablets in the evening. [facility] furosemide 80 mg tablet 2022-0 3 00:00: 00 Yes [id number] 80mg Take 1 tablet by mouth every morning. [facility] furosemide 20 mg tablet 0 01-24 00:00: 00 Yes [id number] 40mg Take 2 tablets by mouth every evening. [facility] metoprolol succinate XL 25 mg 24 hr tablet 0 01-24 00:00: 00 Yes [id number] 37.5mg Take 1.5 tablets by mouth in the morning and 1.5 tablets in the evening. [facility] furosemide 80 mg tablet 0 01-24 00:00: 00 Yes [id number] 80mg Take 1 tablet by mouth every morning. [facility] furosemide 20 mg tablet 0 01-24 00:00: 00 Yes [id number] 40mg Take 2 tablets by mouth every evening. [facility] metoprolol succinate XL 25 mg 24 hr tablet 0 01-24 00:00: 00 Yes [id number] 37.5mg Take 1.5 tablets by mouth in the morning and 1.5 tablets in the evening. [facility] furosemide 80 mg tablet 2022-0 3 00:00: 00 Yes [id number] 80mg Take 1 tablet by mouth every morning. [facility] furosemide 20 mg tablet 0 01-24 00:00: 00 Yes [id number] 40mg Take 2 tablets by mouth every evening. [facility] metoprolol succinate XL 25 mg 24 hr tablet 0 01-24 00:00: 00 Yes [id number] 37.5mg Take 1.5 tablets by mouth in the morning and 1.5 tablets in the evening. [facility] furosemide 80 mg tablet 2022-0 3 00:00: 00 Yes [id number] 80mg Take 1 tablet by mouth every morning. [facility] furosemide 20 mg tablet 0 01-24 00:00: 00 Yes [id number] 40mg Take 2 tablets by mouth every evening. [facility] metoprolol succinate XL 25 mg 24 hr tablet 0 01-24 00:00: 00 Yes [id number] 37.5mg Take 1.5 tablets by mouth in the morning and 1.5 tablets in the evening. [facility] furosemide 80 mg tablet 0 01-24 00:00: 00 Yes [id number] 80mg Take 1 tablet by mouth every morning. [facility] furosemide 20 mg tablet 0 01-24 00:00: 00 Yes [id number] 40mg Take 2 tablets by mouth every evening. [facility] metoprolol succinate XL 25 mg 24 hr tablet 01-24 00:00: 00 Yes [id number] 37.5mg Take 1.5 tablets by mouth in the morning and 1.5 tablets in the evening. [facility] furosemide 80 mg tablet 0 01-24 00:00: 00 Yes [id number] 80mg Take 1 tablet by mouth every morning. [facility] furosemide 20 mg tablet 0 01-24 00:00: 00 Yes [id number] 40mg Take 2 tablets by mouth every evening. [facility] metoprolol succinate XL 25 mg 24 hr tablet 01-24 00:00: 00 Yes [id number] 37.5mg Take 1.5 tablets by mouth in the morning and 1.5 tablets in the evening. [facility] furosemide 80 mg tablet 0 01-24 00:00: 00 Yes [id number] 80mg Take 1 tablet by mouth every morning. [facility] furosemide 20 mg tablet 0 01-24 00:00: 00 Yes [id number] 40mg Take 2 tablets by mouth every evening. [facility] metoprolol succinate XL 25 mg 24 hr tablet 0 01-24 00:00: 00 Yes [id number] 37.5mg Take 1.5 tablets by mouth in the morning and 1.5 tablets in the evening. [facility] furosemide 80 mg tablet 0 3 00:00: 00 Yes [id number] 80mg Take 1 tablet by mouth every morning. [facility] furosemide 20 mg tablet 2022-0 3 00:00: 00 Yes [id number] 40mg Take 2 tablets by mouth every evening. [facility] metoprolol succinate XL 25 mg 24 hr tablet 2022-0 3 00:00: 00 Yes [id number] 37.5mg Take 1.5 tablets by mouth in the morning and 1.5 tablets in the evening. [facility] furosemide 80 mg tablet 2022-0 01-24 00:00: 00 Yes [id number] 80mg Take 1 tablet by mouth every morning. [facility] furosemide 20 mg tablet 0 01-24 00:00: 00 Yes [id number] 40mg Take 2 tablets by mouth every evening. [facility] metoprolol succinate XL 25 mg 24 hr tablet 2022-0 01-24 00:00: 00 Yes [id number] 37.5mg Take 1.5 tablets by mouth in the morning and 1.5 tablets in the evening. [facility] furosemide 80 mg tablet 0 01-24 00:00: 00 Yes [id number] 80mg Take 1 tablet by mouth every morning. [facility] furosemide 20 mg tablet 0 01-24 00:00: 00 Yes [id number] 40mg Take 2 tablets by mouth every evening. [facility] metoprolol succinate XL 25 mg 24 hr tablet 0 01-24 00:00: 00 Yes [id number] 37.5mg Take 1.5 tablets by mouth in the morning and 1.5 tablets in the evening. [facility] furosemide 80 mg tablet 0 3 00:00: 00 Yes [id number] 80mg Take 1 tablet by mouth every morning. [facility] furosemide 20 mg tablet 2022-0 3 00:00: 00 Yes [id number] 40mg Take 2 tablets by mouth every evening. [facility] metoprolol succinate XL 25 mg 24 hr tablet 2022-0 3 00:00: 00 Yes [id number] 37.5mg Take 1.5 tablets by mouth in the morning and 1.5 tablets in the evening. [facility] furosemide 80 mg tablet 2022-0 3 00:00: 00 Yes [id number] 80mg Take 1 tablet by mouth every morning. [facility] furosemide 20 mg tablet 0 01-24 00:00: 00 Yes [id number] 40mg Take 2 tablets by mouth every evening. [facility] metoprolol succinate XL 25 mg 24 hr tablet 2022-0 3 00:00: 00 Yes [id number] 37.5mg Take 1.5 tablets by mouth in the morning and 1.5 tablets in the evening. [facility] furosemide 80 mg tablet 2022-0 01-24 00:00: 00 Yes [id number] 80mg Take 1 tablet by mouth every morning. [facility] furosemide 20 mg tablet 2022-0 01-24 00:00: 00 Yes [id number] 40mg Take 2 tablets by mouth every evening. [facility] metoprolol succinate XL 25 mg 24 hr tablet 2022-0 01-24 00:00: 00 Yes [id number] 37.5mg Take 1.5 tablets by mouth in the morning and 1.5 tablets in the evening. [facility] furosemide 80 mg tablet 0 01-24 00:00: 00 Yes [id number] 80mg Take 1 tablet by mouth every morning. [facility] furosemide 20 mg tablet 2022-0 01-24 00:00: 00 Yes [id number] 40mg Take 2 tablets by mouth every evening. [facility] metoprolol succinate XL 25 mg 24 hr tablet 2022-0 01-24 00:00: 00 Yes [id number] 37.5mg Take 1.5 tablets by mouth in the morning and 1.5 tablets in the evening. [facility] furosemide 80 mg tablet 2022-0 3 00:00: 00 Yes [id number] 80mg Take 1 tablet by mouth every morning. [facility] furosemide 20 mg tablet 2022-0 01-24 00:00: 00 Yes [id number] 40mg Take 2 tablets by mouth every evening. [facility] metoprolol succinate XL 25 mg 24 hr tablet 2022-0 01-24 00:00: 00 Yes [id number] 37.5mg Take 1.5 tablets by mouth in the morning and 1.5 tablets in the evening. [facility] dapaglifloz in ([facility]) 10 mg tablet 2022-0 3- 00:00: 00 05-10 00:00 :00 No [id number] 10mg Take 1 tablet by mouth in the morning. [facility] dapaglifloz in ([facility]) 10 mg tablet 2022-0 - 00:00: 00 05-10 00:00 :00 No [id number] 10mg Take 1 tablet by mouth in the morning. [facility] dapaglifloz in ([facility]) 10 mg tablet 2022-0 01-24 00:00: 00 05-10 00:00 :00 No [id number] 10mg Take 1 tablet by mouth in the morning. [facility] dapaglifloz in ([facility]) 10 mg tablet 2022-0 01-24 00:00: 00 05-10 00:00 :00 No [id number] 10mg Take 1 tablet by mouth in the morning. [facility] dapaglifloz in ([facility]) 10 mg tablet 2022-0 01-24 00:00: 00 05-10 00:00 :00 No [id number] 10mg Take 1 tablet by mouth in the morning. [facility] metoprolol succinate XL 25 mg 24 hr tablet 2022-01-24 00:00: 00 01-24 00:00 :00 No [id number] 37.5mg Take 1.5 tablets by mouth in the morning and 1.5 tablets in the evening. [facility] spironolact one 25 mg tablet 2022-01-24 00:00: 00 01-24 00:00 :00 No [id number] 12.5mg Take 0.5 tablets by mouth in the morning. [facility] metFORMIN 500 mg tablet 3- 00:00: 00 01-24 00:00 :00 No [id number] Take 1 tablet by mouth daily for 7 days, THEN 1 tablet 2 (two) times daily with meals for 7 days, THEN 2 tablets 2 (two) times daily with meals for 30 days. [facility] metoprolol succinate XL 25 mg 24 hr tablet 01-24 00:00: 00 01-24 00:00 :00 No [id number] 37.5mg Take 1.5 tablets by mouth in the morning and 1.5 tablets in the evening. [facility] aspirin 81 mg EC tablet 0 01-23 00:00: 00 Yes [id number] 81mg Take 1 tablet by mouth in the morning. [facility] aspirin 81 mg EC tablet 2022-0 01-23 00:00: 00 Yes [id number] 81mg Take 1 tablet by mouth in the morning. [facility] aspirin 81 mg EC tablet 0 01-23 00:00: 00 Yes [id number] 81mg Take 1 tablet by mouth in the morning. [facility] aspirin 81 mg EC tablet 2022-0 01-23 00:00: 00 Yes [id number] 81mg Take 1 tablet by mouth in the morning. [facility] aspirin 81 mg EC tablet 2022-0 28 00:00: 00 Yes [id number] 81mg Take 1 tablet by mouth in the morning. [facility] aspirin 81 mg EC tablet 0 28 00:00: 00 Yes [id number] 81mg Take 1 tablet by mouth in the morning. [facility] aspirin 81 mg EC tablet 2022-0 28 00:00: 00 Yes [id number] 81mg Take 1 tablet by mouth in the morning. [facility] aspirin 81 mg EC tablet 2022-0 28 00:00: 00 Yes [id number] 81mg Take 1 tablet by mouth in the morning. [facility] aspirin 81 mg EC tablet 2022-0 -28 00:00: 00 Yes [id number] 81mg Take 1 tablet by mouth in the morning. [facility] aspirin 81 mg EC tablet 2022-0 -28 00:00: 00 Yes [id number] 81mg Take 1 tablet by mouth in the morning. [facility] aspirin 81 mg EC tablet 2022-0 2-28 00:00: 00 Yes [id number] 81mg Take 1 tablet by mouth in the morning. [facility] aspirin 81 mg EC tablet 3-0 2-28 00:00: 00 Yes [id number] 81mg Take 1 tablet by mouth in the morning. [facility] aspirin 81 mg EC tablet 3-0 2-28 00:00: 00 Yes [id number] 81mg Take 1 tablet by mouth in the morning. [facility] aspirin 81 mg EC tablet 3-0 2-28 00:00: 00 Yes [id number] 81mg Take 1 tablet by mouth in the morning. [facility] aspirin 81 mg EC tablet 3-0 2-28 00:00: 00 Yes [id number] 81mg Take 1 tablet by mouth in the morning. [facility] aspirin 81 mg EC tablet 3-0 228 00:00: 00 Yes [id number] 81mg Take 1 tablet by mouth in the morning. [facility] aspirin 81 mg EC tablet 3-0 2-28 00:00: 00 Yes [id number] 81mg Take 1 tablet by mouth in the morning. [facility] aspirin 81 mg EC tablet 3-0 228 00:00: 00 Yes [id number] 81mg Take 1 tablet by mouth in the morning. [facility] aspirin 81 mg EC tablet 3-0 228 00:00: 00 Yes [id number] 81mg Take 1 tablet by mouth in the morning. [facility] aspirin 81 mg EC tablet 3-0 2-28 00:00: 00 Yes [id number] 81mg Take 1 tablet by mouth in the morning. [facility] aspirin 81 mg EC tablet 3-0 2-28 00:00: 00 Yes [id number] 81mg Take 1 tablet by mouth in the morning. [facility] aspirin 81 mg EC tablet 3-0 2-28 00:00: 00 Yes [id number] 81mg Take 1 tablet by mouth in the morning. [facility] aspirin 81 mg EC tablet 3-0 2-28 00:00: 00 Yes [id number] 81mg Take 1 tablet by mouth in the morning. [facility] aspirin 81 mg EC tablet 3-0 2-28 00:00: 00 Yes [id number] 81mg Take 1 tablet by mouth in the morning. [facility] EC tablet 3-0 2-28 00:00: 00 Yes [id number] 81mg Take 1 tablet by mouth in the morning. [facility] aspirin 81 mg EC tablet 3-0 2-28 00:00: 00 Yes [id number] 81mg Take 1 tablet by mouth in the morning. [facility] aspirin 81 mg EC tablet 3-0 2-28 00:00: 00 Yes [id number] 81mg Take 1 tablet by mouth in the morning. [facility] aspirin 81 mg EC tablet 3-0 2-28 00:00: 00 Yes [id number] 81mg Take 1 tablet by mouth in the morning. [facility] aspirin 81 mg EC tablet 3-0 2-28 00:00: 00 Yes [id number] 81mg Take 1 tablet by mouth in the morning. [facility] aspirin 81 mg EC tablet 3-0 2-28 00:00: 00 Yes [id number] 81mg Take 1 tablet by mouth in the morning. [facility] aspirin 81 mg EC tablet 3-0 2-28 00:00: 00 Yes [id number] 81mg Take 1 tablet by mouth in the morning. [facility] aspirin 81 mg EC tablet 3-0 2-28 00:00: 00 Yes [id number] 81mg Take 1 tablet by mouth in the morning. [facility] aspirin 81 mg EC tablet 3-0 2-28 00:00: 00 Yes [id number] 81mg Take 1 tablet by mouth in the morning. [facility] aspirin 81 mg EC tablet 3-0 2-28 00:00: 00 Yes [id number] 81mg Take 1 tablet by mouth in the morning. [facility] aspirin 81 mg EC tablet 3-0 2-28 00:00: 00 Yes [id number] 81mg Take 1 tablet by mouth in the morning. [facility] aspirin 81 mg EC tablet 3-0 2-28 00:00: 00 Yes [id number] 81mg Take 1 tablet by mouth in the morning. [facility] aspirin 81 mg EC tablet 3-0 2-28 00:00: 00 Yes [id number] 81mg Take 1 tablet by mouth in the morning. [facility] mg EC tablet 3-0 2-28 00:00: 00 Yes [id number] 81mg Take 1 tablet by mouth in the morning. [facility] 81 mg EC tablet 3-0 2-28 00:00: 00 Yes [id number] 81mg Take 1 tablet by mouth in the morning. [facility] aspirin 81 mg EC tablet 3-0 2-28 00:00: 00 Yes [id number] 81mg Take 1 tablet by mouth in the morning. [facility] aspirin 81 mg EC tablet 3-0 2-28 00:00: 00 Yes [id number] 81mg Take 1 tablet by mouth in the morning. [facility] aspirin 81 mg EC tablet 3-0 2-28 00:00: 00 Yes [id number] 81mg Take 1 tablet by mouth in the morning. [facility] aspirin 81 mg EC tablet 3-0 2-28 00:00: 00 Yes [id number] 81mg Take 1 tablet by mouth in the morning. [facility] aspirin 81 mg EC tablet 3-0 2-28 00:00: 00 Yes [id number] 81mg Take 1 tablet by mouth in the morning. [facility] aspirin 81 mg EC tablet 3-0 2-28 00:00: 00 Yes [id number] 81mg Take 1 tablet by mouth in the morning. [facility] aspirin 81 mg EC tablet 3-0 2-28 00:00: 00 Yes [id number] 81mg Take 1 tablet by mouth in the morning. [facility] aspirin 81 mg EC tablet 3-0 2-28 00:00: 00 Yes [id number] 81mg Take 1 tablet by mouth in the morning. [facility] aspirin 81 mg EC tablet 3-0 2-28 00:00: 00 Yes [id number] 81mg Take 1 tablet by mouth in the morning. [facility] aspirin 81 mg EC tablet 3-0 2-28 00:00: 00 Yes [id number] 81mg Take 1 tablet by mouth in the morning. [facility] furosemide (LASIX) tablet 80 mg 01-22 23:00: 00 Yes 80mg 80 mg, Oral, QAM+PM, First dose on Sun01/22/23 at 1700, Until Discontinu ed, Routine [facility] furosemide (LASIX) tablet 80 mg 01-22 23:00: 00 Yes 80mg 80 mg, Oral, QAM+PM, First dose on Sun01/22/23 at 1700, Until Discontinu ed, Routine [facility] metoprolol tartrate 25 mg tablet 01-22 15:15: 37 01-22 00:00 :00 No 25mg Take 25 mg by mouth in the morning and 25 mg in the evening. [facility] metoprolol tartrate 25 mg tablet 01-22 15:15: 37 01-22 00:00 :00 No 25mg Take 25 mg by mouth in the morning and 25 mg in the evening. [facility] metoprolol tartrate 25 mg tablet 01-22 15:15: 37 01-22 00:00 :00 No 25mg Take 25 mg by mouth in the morning and 25 mg in the evening. [facility] metoprolol tartrate 25 mg tablet 01-22 15:15: 37 01-22 00:00 :00 No 25mg Take 25 mg by mouth in the morning and 25 mg in the evening. [facility] metoprolol tartrate 25 mg tablet 01-22 15:15: 37 01-22 00:00 :00 No 25mg Take 25 mg by mouth in the morning and 25 mg in the evening. [facility] iopamidol (ISOVUE 370-500 mL) injection 01-22 14:51: 43 01-22 15:05 :08 No ONCE INTRA PROCEDURE, Starting on Sun01/22/23 at 0851, Until Sun01/22/23 at 0905, Routine, CV Intraproce dure [facility] NaCl 0.9% (NS) bolus infusion 01-22 14:44: 02 01-22 14:44 :02 No CONTINUOUS PRN, Starting on Sun01/22/23 at 0844, Until Discontinu ed, STAT, CV Intraproce dure [facility] PHENYLephri ne 1000 mcg/10 mL in 0.9% NaCl syringe 01-22 14:43: 22 01-22 15:05 :08 No ONCE INTRA PROCEDURE, Starting on Sun01/22/23 at 0843, Until Sun01/22/23 at 0905, Routine, CV Intraproce dure [facility] nitroglycer in (TRIDIL) 2 mg in 10 mL D5W for Cardiac Cath 01-22 14:12: 33 01-22 15:05 :08 No ONCE INTRA PROCEDURE, Starting on Sun01/22/23 at 0812, Until Sun01/22/23 at 0905, Routine, CV Intraproce dure [facility] heparin 1,000 unit/mL injection 01-22 14:12: 19 01-22 15:05 :08 No ONCE INTRA PROCEDURE, Starting on Sun01/22/23 at 0812, Until Sun01/22/23 at 0905, Routine, CV Intraproce dure [facility] midazolam (VERSED) injection 01-22 13:54: 00 01-22 15:05 :08 No ONCE INTRA PROCEDURE, Starting on Sun01/22/23 at 0754, Until Sun01/22/23 at 0905, Routine, CV Intraproce dure [facility] FENTanyl PF (SUBLIMAZE (PF)) injection 01-22 13:54: 00 01-22 15:05 :08 No ONCE INTRA PROCEDURE, Starting on Sun01/22/23 at 0754, Until Sun01/22/23 at 0905, Routine, CV Intraproce dure [facility] lidocaine 1% (PF) (XYLOCAINE) injection 01-22 13:53: 00 01-22 15:05 :08 No ONCE INTRA PROCEDURE, Starting on Sun01/22/23 at 0753, Until Sun01/22/23 at 0905, Routine, CV Intraproce dure [facility] atorvastati n 80 mg tablet 3-0 01-22 00:00: 00 Yes [id number] 80mg Take 1 tablet by mouth at bedtime. [facility] atorvastati n 80 mg tablet 3-0 01-22 00:00: 00 Yes [id number] 80mg Take 1 tablet by mouth at bedtime. [facility] atorvastati n 80 mg tablet 3-0 27 00:00: 00 Yes [id number] 80mg Take 1 tablet by mouth at bedtime. [facility] atorvastati n 80 mg tablet 3-0 01-22 00:00: 00 Yes [id number] 80mg Take 1 tablet by mouth at bedtime. [facility] atorvastati n 80 mg tablet 3-0 01-22 00:00: 00 Yes [id number] 80mg Take 1 tablet by mouth at bedtime. [facility] atorvastati n 80 mg tablet 3-0 01-22 00:00: 00 Yes [id number] 80mg Take 1 tablet by mouth at bedtime. [facility] atorvastati n 80 mg tablet 2022-0 01-22 00:00: 00 Yes [id number] 80mg Take 1 tablet by mouth at bedtime. [facility] atorvastati n 80 mg tablet 2022-0 01-22 00:00: 00 Yes [id number] 80mg Take 1 tablet by mouth at bedtime. [facility] atorvastati n 80 mg tablet 3-0 27 00:00: 00 Yes [id number] 80mg Take 1 tablet by mouth at bedtime. [facility] atorvastati n 80 mg tablet 3-0 27 00:00: 00 Yes [id number] 80mg Take 1 tablet by mouth at bedtime. [facility] atorvastati n 80 mg tablet 3-0 27 00:00: 00 Yes [id number] 80mg Take 1 tablet by mouth at bedtime. [facility] atorvastati n 80 mg tablet 3-0 2-27 00:00: 00 Yes [id number] 80mg Take 1 tablet by mouth at bedtime. [facility] atorvastati n 80 mg tablet 01-22 00:00: 00 Yes [id number] 80mg Take 1 tablet by mouth at bedtime. [facility] atorvastati n 80 mg tablet 01-22 00:00: 00 Yes [id number] 80mg Take 1 tablet by mouth at bedtime. [facility] atorvastati n 80 mg tablet 01-22 00:00: 00 Yes [id number] 80mg Take 1 tablet by mouth at bedtime. [facility] carvediloL 3.125 mg tablet 01-22 00:00: 00 Yes [id number] 3.125mg Take 1 tablet by mouth in the morning and 1 tablet in the evening. Take with meals. [facility] clopidogreL 75 mg tablet 01-22 00:00: 00 Yes [id number] 75mg Take 1 tablet by mouth in the morning. [facility] lisinopriL 2.5 mg tablet 01-22 00:00: 00 Yes [id number] 2.5mg Take 1 tablet by mouth in the morning. [facility] dapaglifloz in (FARXIGA) 10 mg tablet 01-22 00:00: 00 Yes [id number] 10mg Take 1 tablet by mouth in the morning. [facility] nicotine 21 mg/24 hr patch 01-22 00:00: 00 Yes [id number] 1{patch } Apply 1 Patch to area(s) every 24 (twenty-fo ur) hours. [facility] furosemide 80 mg tablet 01-22 00:00: 00 Yes [id number] 80mg Take 1 tablet by mouth every morning and evening. [facility] atorvastati n 80 mg tablet 01-22 00:00: 00 Yes [id number] 80mg Take 1 tablet by mouth at bedtime. [facility] atorvastati n 80 mg tablet 01-22 00:00: 00 Yes [id number] 80mg Take 1 tablet by mouth at bedtime. [facility] atorvastati n 80 mg tablet 3-0 227 00:00: 00 Yes [id number] 80mg Take 1 tablet by mouth at bedtime. [facility] atorvastati n 80 mg tablet 3-0 227 00:00: 00 Yes [id number] 80mg Take 1 tablet by mouth at bedtime. [facility] atorvastati n 80 mg tablet 3-0 227 00:00: 00 Yes [id number] 80mg Take 1 tablet by mouth at bedtime. [facility] atorvastati n 80 mg tablet 3-0 27 00:00: 00 Yes [id number] 80mg Take 1 tablet by mouth at bedtime. [facility] atorvastati n 80 mg tablet 3-0 01-22 00:00: 00 Yes [id number] 80mg Take 1 tablet by mouth at bedtime. [facility] atorvastati n 80 mg tablet 2022-0 01-22 00:00: 00 Yes [id number] 80mg Take 1 tablet by mouth at bedtime. [facility] atorvastati n 80 mg tablet 2022-0 01-22 00:00: 00 Yes [id number] 80mg Take 1 tablet by mouth at bedtime. [facility] atorvastati n 80 mg tablet 0 01-22 00:00: 00 Yes [id number] 80mg Take 1 tablet by mouth at bedtime. [facility] atorvastati n 80 mg tablet 3-0 27 00:00: 00 Yes [id number] 80mg Take 1 tablet by mouth at bedtime. [facility] atorvastati n 80 mg tablet 3-0 27 00:00: 00 Yes [id number] 80mg Take 1 tablet by mouth at bedtime. [facility] atorvastati n 80 mg tablet 3-0 227 00:00: 00 Yes [id number] 80mg Take 1 tablet by mouth at bedtime. [facility] atorvastati n 80 mg tablet 3-0 227 00:00: 00 Yes [id number] 80mg Take 1 tablet by mouth at bedtime. [facility] atorvastati n 80 mg tablet 3-0 227 00:00: 00 Yes [id number] 80mg Take 1 tablet by mouth at bedtime. [facility] atorvastati n 80 mg tablet 3-0 27 00:00: 00 Yes [id number] 80mg Take 1 tablet by mouth at bedtime. [facility] atorvastati n 80 mg tablet 3-0 227 00:00: 00 Yes [id number] 80mg Take 1 tablet by mouth at bedtime. [facility] atorvastati n 80 mg tablet 3-0 01-22 00:00: 00 Yes [id number] 80mg Take 1 tablet by mouth at bedtime. [facility] atorvastati n 80 mg tablet 3-0 01-22 00:00: 00 Yes [id number] 80mg Take 1 tablet by mouth at bedtime. [facility] atorvastati n 80 mg tablet 2022-0 01-22 00:00: 00 Yes [id number] 80mg Take 1 tablet by mouth at bedtime. [facility] atorvastati n 80 mg tablet 2022-0 01-22 00:00: 00 Yes [id number] 80mg Take 1 tablet by mouth at bedtime. [facility] atorvastati n 80 mg tablet 2022-0 01-22 00:00: 00 Yes [id number] 80mg Take 1 tablet by mouth at bedtime. [facility] atorvastati n 80 mg tablet 3-0 227 00:00: 00 Yes [id number] 80mg Take 1 tablet by mouth at bedtime. [facility] atorvastati n 80 mg tablet 3-0 227 00:00: 00 Yes [id number] 80mg Take 1 tablet by mouth at bedtime. [facility] atorvastati n 80 mg tablet 3-0 227 00:00: 00 Yes [id number] 80mg Take 1 tablet by mouth at bedtime. [facility] atorvastati n 80 mg tablet 3-0 227 00:00: 00 Yes [id number] 80mg Take 1 tablet by mouth at bedtime. [facility] atorvastati n 80 mg tablet 0 01-22 00:00: 00 Yes [id number] 80mg Take 1 tablet by mouth at bedtime. [facility] atorvastati n 80 mg tablet 0 01-22 00:00: 00 Yes [id number] 80mg Take 1 tablet by mouth at bedtime. [facility] atorvastati n 80 mg tablet 0 01-22 00:00: 00 Yes [id number] 80mg Take 1 tablet by mouth at bedtime. [facility] atorvastati n 80 mg tablet 0 01-22 00:00: 00 Yes [id number] 80mg Take 1 tablet by mouth at bedtime. [facility] atorvastati n 80 mg tablet 0 01-22 00:00: 00 Yes [id number] 80mg Take 1 tablet by mouth at bedtime. [facility] atorvastati n 80 mg tablet 0 01-22 00:00: 00 Yes [id number] 80mg Take 1 tablet by mouth at bedtime. [facility] atorvastati n 80 mg tablet 0 01-22 00:00: 00 Yes [id number] 80mg Take 1 tablet by mouth at bedtime. [facility] atorvastati n 80 mg tablet 01-22 00:00: 00 Yes [id number] 80mg Take 1 tablet by mouth at bedtime. [facility] carvediloL 3.125 mg tablet 01-22 00:00: 00 01-24 00:00 :00 No [id number] 3.125mg Take 1 tablet by mouth in the morning and 1 tablet in the evening. Take with meals. [facility] clopidogreL 75 mg tablet 01-22 00:00: 00 01-24 00:00 :00 No [id number] 75mg Take 1 tablet by mouth in the morning. [facility] lisinopriL 2.5 mg tablet 01-22 00:00: 00 01-24 00:00 :00 No [id number] 2.5mg Take 1 tablet by mouth in the morning. [facility] dapaglifloz in (FARXIGA) 10 mg tablet 01-22 00:00: 00 01-24 00:00 :00 No [id number] 10mg Take 1 tablet by mouth in the morning. [facility] nicotine 21 mg/24 hr patch 01-22 00:00: 00 01-24 00:00 :00 No [id number] 1{patch } Apply 1 Patch to area(s) every 24 (twenty-fo ur) hours. [facility] furosemide 80 mg tablet 01-22 00:00: 00 01-24 00:00 :00 No [id number] 80mg Take 1 tablet by mouth every morning and evening. [facility] carvediloL (COREG) tablet 3.125 mg 01-21 23:00: 00 01-23 16:48 :12 No 3.125mg 3.125 mg, Oral, BID MEALS, First dose on 01/21/23 at 1700, Until Discontinu ed, Routine [facility] atorvastati n (LIPITOR) tablet 80 mg 01-21 03:00: 00 Yes 80mg 80 mg, Oral, QHS, First dose (after last modificati on) on 01/20/23 at 2100, Until Discontinu ed, Routine [facility] atorvastati n (LIPITOR) tablet 80 mg 01-21 03:00: 00 Yes 80mg 80 mg, Oral, QHS, First dose (after last modificati on) on 01/20/23 at 2100, Until Discontinu ed, Routine [facility] lidocaine (LIDODERM) 5 % (700 mg/patch) patch 1 Patch 01-20 15:00: 00 Yes 1{patch } 1 Patch, Topical, Administer over 12 Hours, DAILY, First dose (after last reorder) on 01/20/23 at 0900, Until Discontinu ed, Routine [facility] clopidogreL (PLAVIX) 75 mg tablet 75 mg 01-20 15:00: 00 Yes 75mg 75 mg, Oral, DAILY, First dose on 01/20/23 at 0900, Until Discontinu ed, Routine [facility] aspirin EC tablet 81 mg 01-20 15:00: 00 Yes 81mg 81 mg, Oral, DAILY, First dose on 01/20/23 at 0900, Until Discontinu ed [facility] lidocaine (LIDODERM) 5 % (700 mg/patch) patch 1 Patch 01-20 15:00: 00 Yes 1{patch } 1 Patch, Topical, Administer over 12 Hours, DAILY, First dose (after last reorder) on 01/20/23 at 0900, Until Discontinu ed, Routine [facility] clopidogreL (PLAVIX) 75 mg tablet 75 mg 01-20 15:00: 00 Yes 75mg 75 mg, Oral, DAILY, First dose on 01/20/23 at 0900, Until Discontinu ed, Routine [facility] aspirin EC tablet 81 mg 01-20 15:00: 00 Yes 81mg 81 mg, Oral, DAILY, First dose on 01/20/23 at 0900, Until Discontinu ed [facility] KCL (KLOR-CON M20) tablet 40 mEq 01-20 13:30: 00 01-20 14:50 :00 No 40meq 40 mEq, Oral, ONCE, 1 dose, On 01/20/23 at 0730, Routine [facility] dextrose 10% (D10W) bolus infusion 250 mL 01-20 13:11: 04 Yes 250mL 250 mL, IV Infusion, PRN - SEE INSTRUCTIO NS, Administer over 60 Minutes, Other, If blood [...] blood glucose is < 80 mg/dL, repeat.
[facility] dextrose 10% (D10W) bolus infusion 250 mL 01-20 13:11: 04 Yes 250mL 250 mL, IV Infusion, PRN - SEE INSTRUCTIO NS, Administer over 60 Minutes, Other, If blood [...] blood glucose is < 80 mg/dL, repeat.
[facility] glucagon (GLUCAGEN DIAGNOSTIC KIT) injection 1 mg 01-20 13:11: 00 Yes 1mg 1 mg, Intramuscu lar, PRN, Starting on 01/20/23 at 0711, Until Discontinu ed, LETITIA, Blood Glucose < or = 70 mg/dL and patient is NPO, unable to swallow or has mental changes. [facility] glucagon (GLUCAGEN DIAGNOSTIC KIT) injection 1 mg 01-20 13:11: 00 Yes 1mg 1 mg, Intramuscu lar, PRN, Starting on 01/20/23 at 0711, Until Discontinu ed, LETITIA, Blood Glucose < or = 70 mg/dL and patient is NPO, unable to swallow or has mental changes. [facility] melatonin (MELATIN) tablet 3 mg 01-20 03:00: 00 Yes 3mg 3 mg, Oral, QHS, First dose on Sun01/19/23 at 2100, Until Discontinu ed, Routine [facility] melatonin (MELATIN) tablet 3 mg 01-20 03:00: 00 Yes 3mg 3 mg, Oral, QHS, First dose on Sun01/19/23 at 2100, Until Discontinu ed, Routine [facility] atorvastati n (LIPITOR) tablet 40 mg 01-20 03:00: 00 01-20 16:47 :53 No 40mg 40 mg, Oral, QHS, First dose on Sun01/19/23 at 2100, Until Discontinu ed, Routine [facility] enoxaparin (LOVENOX) injection 40 mg 01-19 23:00: 00 Yes 40mg 40 mg, Subcutaneo us, DAILY, First dose on Sun01/19/23 at 1700, Until Discontinu ed, Routine [facility] enoxaparin (LOVENOX) injection 40 mg 01-19 23:00: 00 Yes 40mg 40 mg, Subcutaneo us, DAILY, First dose on Sun01/19/23 at 1700, Until Discontinu ed, Routine [facility] lidocaine (LIDODERM) 5 % (700 mg/patch) patch 1 Patch 01-19 20:30: 00 01-20 09:42 :00 No 1{patch } 1 Patch, Topical, Administer over 12 Hours, ONCE, 1 dose, On Sun01/19/23 at 1430, [facility] lipid microsphere s (DEFINITY) injection 2 mL 01-19 20:30: 00 01-19 20:30 :00 No [id number] 2mL 2 mL, IV Push, ONCE, 1 dose, On Sun01/19/23 at 1430, Routine [facility] lisinopriL (PRINIVIL,Z ESTRIL) tablet 5 mg 01-19 19:45: 00 01-23 16:48 :12 No 5mg 5 mg, Oral, DAILY, First dose (after last modificati on) on Sun01/19/23 at 1345, Until Discontinu ed, Routine [facility] furosemide (LASIX) injection 80 mg 01-19 17:30: 00 01-21 14:10 :45 No 80mg 80 mg, IV Push, BID, First dose on Sun01/19/23 at 1130, Until Discontinu ed, Routine [facility] acetaminoph en (TYLENOL) tablet 650 mg 01-19 17:24: 01 Yes 650mg 650 mg, Oral, Q6HPRN, Starting on Sun01/19/23 at 1124, Until Discontinu ed, Routine, Pain (scale 1-3) [facility] acetaminoph en (TYLENOL) tablet 650 mg 01-19 17:24: 01 Yes 650mg 650 mg, Oral, Q6HPRN, Starting on Sun01/19/23 at 1124, Until Discontinu ed, Routine, Pain (scale 1-3) [facility] hydroCHLORO thiazide 25 mg tablet 01-16 19:18: 10 01-16 00:00 :00 No 25mg Take 25 mg by mouth in the morning. [facility] hydroCHLORO thiazide 25 mg tablet 01-16 19:18: 10 01-16 00:00 :00 No 25mg Take 25 mg by mouth in the morning. [facility] hydroCHLORO thiazide 25 mg tablet 01-16 19:18: 10 01-16 00:00 :00 No 25mg Take 25 mg by mouth in the morning. [facility] hydroCHLORO thiazide 25 mg tablet 01-16 19:18: 10 01-16 00:00 :00 No 25mg Take 25 mg by mouth in the morning. [facility] hydroCHLORO thiazide 25 mg tablet 01-16 19:18: 10 01-16 00:00 :00 No 25mg Take 25 mg by mouth in the morning. [facility] hydroCHLORO thiazide 25 mg tablet 01-16 19:18: 10 01-16 00:00 :00 No 25mg Take 25 mg by mouth in the morning. [facility] furosemide 40 mg tablet 2023-0 2-21 00:00: 00 Yes 80mg Take 2 tablets by mouth every morning. [facility] furosemide 40 mg tablet 0 2-21 00:00: 00 Yes [id number] 40mg Take 1 tablet by mouth every evening. [facility] furosemide 40 mg tablet 2022-0 2-21 00:00: 00 Yes 80mg Take 2 tablets by mouth every morning. [facility] furosemide 40 mg tablet 2022-0 2-21 00:00: 00 Yes [id number] 40mg Take 1 tablet by mouth every evening. [facility] furosemide 40 mg tablet 2022-0 2-21 00:00: 00 Yes 80mg Take 2 tablets by mouth every morning. [facility] furosemide 40 mg tablet 0 2- 00:00: 00 Yes [id number] 40mg Take 1 tablet by mouth every evening. [facility] furosemide 40 mg tablet 0 2-21 00:00: 00 01-22 00:00 :00 No 80mg Take 2 tablets by mouth every morning. [facility] furosemide 40 mg tablet 0 2-21 00:00: 00 01-22 00:00 :00 No [id number] 40mg Take 1 tablet by mouth every evening. [facility] furosemide 40 mg tablet 0 2 00:00: 00 01-22 00:00 :00 No 80mg Take 2 tablets by mouth every morning. [facility] furosemide 40 mg tablet 0 2-21 00:00: 00 01-22 00:00 :00 No [id number] 40mg Take 1 tablet by mouth every evening. [facility] hydroCHLORO thiazide 25 mg tablet 0 2-14 14:11: 55 Yes 25mg Take 25 mg by mouth in the morning. [facility] hydroCHLORO thiazide 25 mg tablet 0 2-14 14:11: 55 Yes 25mg Take 25 mg by mouth in the morning. [facility] furosemide (LASIX) injection 40 mg 2022- 2-10 21:30: 00 01-05 21:49 :00 No 40mg 40 mg, IV Push, ONCE, 1 dose, On Sun01/05/23 at 1530, [facility] furosemide (LASIX) injection 40 mg 01-05 20:00: 00 01-05 19:59 :00 No 40mg 40 mg, IV Push, ONCE, 1 dose, On Sun01/05/23 at 1400, [facility] albuterol (PROVENTIL) 2.5 mg /3 mL (0.083 %) nebulizer solution 5 mg 01-05 20:00: 00 01-05 19:52 :00 No 5mg 5 mg, Inhalation , ONCE, 1 dose, On Sun01/05/23 at 1400, [facility] albuterol 90 mcg/actuati on inhaler 01-05 00:00: 00 Yes [id number] 2{puff} Inhale 2 Puffs every 4 (four) hours as needed for Wheezing or Shortness of Breath. [facility] albuterol 90 mcg/actuati on inhaler 01-05 00:00: 00 Yes [id number] 2{puff} Inhale 2 Puffs every 4 (four) hours as needed for Wheezing or Shortness of Breath. [facility] albuterol 90 mcg/actuati on inhaler 01-05 00:00: 00 Yes [id number] 2{puff} Inhale 2 Puffs every 4 (four) hours as needed for Wheezing or Shortness of Breath. [facility] albuterol 90 mcg/actuati on inhaler 01-05 00:00: 00 Yes [id number] 2{puff} Inhale 2 Puffs every 4 (four) hours as needed for Wheezing or Shortness of Breath. [facility] albuterol 90 mcg/actuati on inhaler 01-05 00:00: 00 Yes [id number] 2{puff} Inhale 2 Puffs every 4 (four) hours as needed for Wheezing or Shortness of Breath. [facility] albuterol 90 mcg/actuati on inhaler 2- 00:00: 00 Yes [id number] 2{puff} Inhale 2 Puffs every 4 (four) hours as needed for Wheezing or Shortness of Breath. [facility] albuterol 90 mcg/actuati on inhaler 2 00:00: 00 Yes [id number] 2{puff} Inhale 2 Puffs every 4 (four) hours as needed for Wheezing or Shortness of Breath. [facility] albuterol 90 mcg/actuati on inhaler 2 00:00: 00 Yes [id number] 2{puff} Inhale 2 Puffs every 4 (four) hours as needed for Wheezing or Shortness of Breath. [facility] albuterol 90 mcg/actuati on inhaler 01-05 00:00: 00 Yes [id number] 2{puff} Inhale 2 Puffs every 4 (four) hours as needed for Wheezing or Shortness of Breath. [facility] albuterol 90 mcg/actuati on inhaler 01-05 00:00: 00 Yes [id number] 2{puff} Inhale 2 Puffs every 4 (four) hours as needed for Wheezing or Shortness of Breath. [facility] albuterol 90 mcg/actuati on inhaler 01-05 00:00: 00 Yes [id number] 2{puff} Inhale 2 Puffs every 4 (four) hours as needed for Wheezing or Shortness of Breath. [facility] albuterol 90 mcg/actuati on inhaler 2 00:00: 00 Yes [id number] 2{puff} Inhale 2 Puffs every 4 (four) hours as needed for Wheezing or Shortness of Breath. [facility] albuterol 90 mcg/actuati on inhaler 2-10 00:00: 00 Yes [id number] 2{puff} Inhale 2 Puffs every 4 (four) hours as needed for Wheezing or Shortness of Breath. [facility] albuterol 90 mcg/actuati on inhaler 2-10 00:00: 00 Yes [id number] 2{puff} Inhale 2 Puffs every 4 (four) hours as needed for Wheezing or Shortness of Breath. [facility] albuterol 90 mcg/actuati on inhaler 2 00:00: 00 Yes [id number] 2{puff} Inhale 2 Puffs every 4 (four) hours as needed for Wheezing or Shortness of Breath. [facility] albuterol 90 mcg/actuati on inhaler 2 00:00: 00 Yes [id number] 2{puff} Inhale 2 Puffs every 4 (four) hours as needed for Wheezing or Shortness of Breath. [facility] albuterol 90 mcg/actuati on inhaler 01-05 00:00: 00 Yes [id number] 2{puff} Inhale 2 Puffs every 4 (four) hours as needed for Wheezing or Shortness of Breath. [facility] albuterol 90 mcg/actuati on inhaler 01-05 00:00: 00 Yes [id number] 2{puff} Inhale 2 Puffs every 4 (four) hours as needed for Wheezing or Shortness of Breath. [facility] albuterol 90 mcg/actuati on inhaler 01-05 00:00: 00 Yes [id number] 2{puff} Inhale 2 Puffs every 4 (four) hours as needed for Wheezing or Shortness of Breath. [facility] albuterol 90 mcg/actuati on inhaler 2 00:00: 00 Yes [id number] 2{puff} Inhale 2 Puffs every 4 (four) hours as needed for Wheezing or Shortness of Breath. [facility] albuterol 90 mcg/actuati on inhaler 2 00:00: 00 Yes [id number] 2{puff} Inhale 2 Puffs every 4 (four) hours as needed for Wheezing or Shortness of Breath. [facility] albuterol 90 mcg/actuati on inhaler 2 00:00: 00 Yes [id number] 2{puff} Inhale 2 Puffs every 4 (four) hours as needed for Wheezing or Shortness of Breath. [facility] albuterol 90 mcg/actuati on inhaler 01-05 00:00: 00 Yes [id number] 2{puff} Inhale 2 Puffs every 4 (four) hours as needed for Wheezing or Shortness of Breath. [facility] albuterol 90 mcg/actuati on inhaler 01-05 00:00: 00 Yes [id number] 2{puff} Inhale 2 Puffs every 4 (four) hours as needed for Wheezing or Shortness of Breath. [facility] albuterol 90 mcg/actuati on inhaler 01-05 00:00: 00 Yes [id number] 2{puff} Inhale 2 Puffs every 4 (four) hours as needed for Wheezing or Shortness of Breath. [facility] albuterol 90 mcg/actuati on inhaler 01-05 00:00: 00 Yes [id number] 2{puff} Inhale 2 Puffs every 4 (four) hours as needed for Wheezing or Shortness of Breath. [facility] albuterol 90 mcg/actuati on inhaler 01-05 00:00: 00 Yes [id number] 2{puff} Inhale 2 Puffs every 4 (four) hours as needed for Wheezing or Shortness of Breath. [facility] albuterol 90 mcg/actuati on inhaler 01-05 00:00: 00 Yes [id number] 2{puff} Inhale 2 Puffs every 4 (four) hours as needed for Wheezing or Shortness of Breath. [facility] albuterol 90 mcg/actuati on inhaler 01-05 00:00: 00 Yes [id number] 2{puff} Inhale 2 Puffs every 4 (four) hours as needed for Wheezing or Shortness of Breath. [facility] albuterol 90 mcg/actuati on inhaler 01-05 00:00: 00 Yes [id number] 2{puff} Inhale 2 Puffs every 4 (four) hours as needed for Wheezing or Shortness of Breath. [facility] albuterol 90 mcg/actuati on inhaler 2-10 00:00: 00 Yes [id number] 2{puff} Inhale 2 Puffs every 4 (four) hours as needed for Wheezing or Shortness of Breath. [facility] albuterol 90 mcg/actuati on inhaler 2- 00:00: 00 Yes [id number] 2{puff} Inhale 2 Puffs every 4 (four) hours as needed for Wheezing or Shortness of Breath. [facility] albuterol 90 mcg/actuati on inhaler 2 00:00: 00 Yes [id number] 2{puff} Inhale 2 Puffs every 4 (four) hours as needed for Wheezing or Shortness of Breath. [facility] albuterol 90 mcg/actuati on inhaler 2 00:00: 00 Yes [id number] 2{puff} Inhale 2 Puffs every 4 (four) hours as needed for Wheezing or Shortness of Breath. [facility] albuterol 90 mcg/actuati on inhaler 2 00:00: 00 Yes [id number] 2{puff} Inhale 2 Puffs every 4 (four) hours as needed for Wheezing or Shortness of Breath. [facility] albuterol 90 mcg/actuati on inhaler 2- 00:00: 00 Yes [id number] 2{puff} Inhale 2 Puffs every 4 (four) hours as needed for Wheezing or Shortness of Breath. [facility] albuterol 90 mcg/actuati on inhaler 2-10 00:00: 00 Yes [id number] 2{puff} Inhale 2 Puffs every 4 (four) hours as needed for Wheezing or Shortness of Breath. [facility] albuterol 90 mcg/actuati on inhaler 2-10 00:00: 00 Yes [id number] 2{puff} Inhale 2 Puffs every 4 (four) hours as needed for Wheezing or Shortness of Breath. [facility] albuterol 90 mcg/actuati on inhaler 2- 00:00: 00 Yes [id number] 2{puff} Inhale 2 Puffs every 4 (four) hours as needed for Wheezing or Shortness of Breath. [facility] albuterol 90 mcg/actuati on inhaler 2- 00:00: 00 Yes [id number] 2{puff} Inhale 2 Puffs every 4 (four) hours as needed for Wheezing or Shortness of Breath. [facility] albuterol 90 mcg/actuati on inhaler 2 00:00: 00 Yes [id number] 2{puff} Inhale 2 Puffs every 4 (four) hours as needed for Wheezing or Shortness of Breath. [facility] albuterol 90 mcg/actuati on inhaler 2 00:00: 00 Yes [id number] 2{puff} Inhale 2 Puffs every 4 (four) hours as needed for Wheezing or Shortness of Breath. [facility] albuterol 90 mcg/actuati on inhaler 2 00:00: 00 Yes [id number] 2{puff} Inhale 2 Puffs every 4 (four) hours as needed for Wheezing or Shortness of Breath. [facility] albuterol 90 mcg/actuati on inhaler 2 00:00: 00 Yes [id number] 2{puff} Inhale 2 Puffs every 4 (four) hours as needed for Wheezing or Shortness of Breath. [facility] albuterol 90 mcg/actuati on inhaler 2- 00:00: 00 Yes [id number] 2{puff} Inhale 2 Puffs every 4 (four) hours as needed for Wheezing or Shortness of Breath. [facility] albuterol 90 mcg/actuati on inhaler 2- 00:00: 00 Yes [id number] 2{puff} Inhale 2 Puffs every 4 (four) hours as needed for Wheezing or Shortness of Breath. [facility] albuterol 90 mcg/actuati on inhaler 2- 00:00: 00 Yes [id number] 2{puff} Inhale 2 Puffs every 4 (four) hours as needed for Wheezing or Shortness of Breath. [facility] albuterol 90 mcg/actuati on inhaler 2 00:00: 00 Yes [id number] 2{puff} Inhale 2 Puffs every 4 (four) hours as needed for Wheezing or Shortness of Breath. [facility] albuterol 90 mcg/actuati on inhaler 2 00:00: 00 Yes [id number] 2{puff} Inhale 2 Puffs every 4 (four) hours as needed for Wheezing or Shortness of Breath. [facility] albuterol 90 mcg/actuati on inhaler 2 00:00: 00 Yes [id number] 2{puff} Inhale 2 Puffs every 4 (four) hours as needed for Wheezing or Shortness of Breath. [facility] albuterol 90 mcg/actuati on inhaler 2 00:00: 00 Yes [id number] 2{puff} Inhale 2 Puffs every 4 (four) hours as needed for Wheezing or Shortness of Breath. [facility] albuterol 90 mcg/actuati on inhaler 01-05 00:00: 00 Yes [id number] 2{puff} Inhale 2 Puffs every 4 (four) hours as needed for Wheezing or Shortness of Breath. [facility] albuterol 90 mcg/actuati on inhaler 2 00:00: 00 Yes [id number] 2{puff} Inhale 2 Puffs every 4 (four) hours as needed for Wheezing or Shortness of Breath. [facility] albuterol 90 mcg/actuati on inhaler 2-10 00:00: 00 Yes [id number] 2{puff} Inhale 2 Puffs every 4 (four) hours as needed for Wheezing or Shortness of Breath. [facility] albuterol 90 mcg/actuati on inhaler 2-10 00:00: 00 Yes [id number] 2{puff} Inhale 2 Puffs every 4 (four) hours as needed for Wheezing or Shortness of Breath. [facility] albuterol 90 mcg/actuati on inhaler 2 00:00: 00 Yes [id number] 2{puff} Inhale 2 Puffs every 4 (four) hours as needed for Wheezing or Shortness of Breath. [facility] albuterol 90 mcg/actuati on inhaler 01-05 00:00: 00 Yes [id number] 2{puff} Inhale 2 Puffs every 4 (four) hours as needed for Wheezing or Shortness of Breath. [facility] albuterol 90 mcg/actuati on inhaler 01-05 00:00: 00 Yes [id number] 2{puff} Inhale 2 Puffs every 4 (four) hours as needed for Wheezing or Shortness of Breath. [facility] atorvastati n 40 mg tablet 12-21 11:: 12-21 00:00 :00 No 40mg Take 40 mg by mouth at bedtime. [facility] clopidogreL 75 mg tablet 12-21 11:: 12-21 00:00 :00 No 75mg Take 75 mg by mouth in the morning. [facility] aspirin 81 mg Cap 12-21 11:: 12-21 00:00 :00 No Take by mouth. [facility] furosemide 40 mg tablet 12-21 11:: 12-21 00:00 :00 No 40mg Take 40 mg by mouth in the morning. [facility] carvediloL 3.125 mg tablet 12-21 11:: 12-21 00:00 :00 No 3.125mg Take 3.125 mg by mouth in the morning and 3.125 mg in the evening. Take with meals. [facility] lisinopriL 5 mg tablet 12-21 11:: 12-21 00:00 :00 No 5mg Take 5 mg by mouth in the morning. [facility] atorvastati n 40 mg tablet 12-21 11:: 12-21 00:00 :00 No 40mg Take 40 mg by mouth at bedtime. [facility] clopidogreL 75 mg tablet 12-21 11:: 12-21 00:00 :00 No 75mg Take 75 mg by mouth in the morning. [facility] aspirin 81 mg Cap 12-21 11:: 12-21 00:00 :00 No Take by mouth. [facility] furosemide 40 mg tablet 12-21 11:: 12-21 00:00 :00 No 40mg Take 40 mg by mouth in the morning. [facility] carvediloL 3.125 mg tablet 12-21 11:: 12-21 00:00 :00 No 3.125mg Take 3.125 mg by mouth in the morning and 3.125 mg in the evening. Take with meals. [facility] lisinopriL 5 mg tablet 12-21 11:: 12-21 00:00 :00 No 5mg Take 5 mg by mouth in the morning. [facility] atorvastati n 40 mg tablet 12-21 11:: 12-21 00:00 :00 No 40mg Take 40 mg by mouth at bedtime. [facility] clopidogreL 75 mg tablet 12-21 11:: 12-21 00:00 :00 No 75mg Take 75 mg by mouth in the morning. [facility] aspirin 81 mg Cap 12-21 11:: 12-21 00:00 :00 No Take by mouth. [facility] furosemide 40 mg tablet 12-21 11:: 12-21 00:00 :00 No 40mg Take 40 mg by mouth in the morning. [facility] carvediloL 3.125 mg tablet 12-21 11:26: 14 12-21 00:00 :00 No 3.125mg Take 3.125 mg by mouth in the morning and 3.125 mg in the evening. Take with meals. [facility] lisinopriL 5 mg tablet 12-21 11:26: 14 12-21 00:00 :00 No 5mg Take 5 mg by mouth in the morning. [facility] metoprolol tartrate 25 mg tablet 12-21 11:13: 26 Yes 25mg Take 25 mg by mouth in the morning and 25 mg in the evening. [facility] hydroCHLORO thiazide 25 mg tablet 12-21 11:13: 26 Yes 25mg Take 25 mg by mouth in the morning. [facility] metoprolol tartrate 25 mg tablet 12-21 11:13: 26 Yes 25mg Take 25 mg by mouth in the morning and 25 mg in the evening. [facility] hydroCHLORO thiazide 25 mg tablet 12-21 11:13: 26 Yes 25mg Take 25 mg by mouth in the morning. [facility] metoprolol tartrate 25 mg tablet 12-21 11:13: 26 Yes 25mg Take 25 mg by mouth in the morning and 25 mg in the evening. [facility] hydroCHLORO thiazide 25 mg tablet 12-21 11:13: 26 Yes 25mg Take 25 mg by mouth in the morning. [facility] metoprolol tartrate 25 mg tablet 12-21 11:13: 26 Yes 25mg Take 25 mg by mouth in the morning and 25 mg in the evening. [facility] metoprolol tartrate 25 mg tablet 12-21 11:13: 26 Yes 25mg Take 25 mg by mouth in the morning and 25 mg in the evening. [facility] metoprolol tartrate 25 mg tablet 12-21 11:13: 26 Yes 25mg Take 25 mg by mouth in the morning and 25 mg in the evening. [facility] metoprolol tartrate 25 mg tablet 12-21 11:13: 26 Yes 25mg Take 25 mg by mouth in the morning and 25 mg in the evening. [facility] metoprolol tartrate 25 mg tablet 12-21 11:13: 26 Yes 25mg Take 25 mg by mouth in the morning and 25 mg in the evening. [facility] metoprolol tartrate 25 mg tablet 12-21 11:13: 26 Yes 25mg Take 25 mg by mouth in the morning and 25 mg in the evening. [facility] hydroCHLORO thiazide 25 mg tablet 12-21 11:13: Yes 25mg Take 25 mg by mouth in the morning. [facility] metoprolol tartrate 25 mg tablet 12-21 11:13: Yes 25mg Take 25 mg by mouth in the morning and 25 mg in the evening. [facility] hydroCHLORO thiazide 25 mg tablet 12-21 11:13: Yes 25mg Take 25 mg by mouth in the morning. [facility] benzonatate 200 mg capsule 12-21 00:00: 00 Yes [id number] 200mg Take 1 capsule by mouth 3 (three) times daily as needed for Cough. [facility] atorvastati n 40 mg tablet 12-21 00:00: 00 Yes [id number] 40mg Take 1 tablet by mouth at bedtime. [facility] carvediloL 3.125 mg tablet 12-21 00:00: 00 Yes [id number] 3.125mg Take 1 tablet by mouth in the morning and 1 tablet in the evening. Take with meals. [facility] clopidogreL 75 mg tablet 12-21 00:00: 00 Yes [id number] 75mg Take 1 tablet by mouth in the morning. [facility] furosemide 40 mg tablet 12-21 00:00: 00 Yes [id number] 40mg Take 1 tablet by mouth in the morning. [facility] lisinopriL 5 mg tablet 12-21 00:00: 00 Yes [id number] 5mg Take 1 tablet by mouth in the morning. [facility] aspirin 81 mg Cap 12-21 00:00: 00 Yes [id number] 1{capsu le} Take 1 capsule by mouth daily. [facility] benzonatate 200 mg capsule 12-21 00:00: 00 Yes [id number] 200mg Take 1 capsule by mouth 3 (three) times daily as needed for Cough. [facility] atorvastati n 40 mg tablet 12-21 00:00: 00 Yes [id number] 40mg Take 1 tablet by mouth at bedtime. [facility] carvediloL 3.125 mg tablet 12-21 00:00: 00 Yes [id number] 3.125mg Take 1 tablet by mouth in the morning and 1 tablet in the evening. Take with meals. [facility] clopidogreL 75 mg tablet 12-21 00:00: 00 Yes [id number] 75mg Take 1 tablet by mouth in the morning. [facility] furosemide 40 mg tablet 12-21 00:00: 00 Yes [id number] 40mg Take 1 tablet by mouth in the morning. [facility] lisinopriL 5 mg tablet 12-21 00:00: 00 Yes [id number] 5mg Take 1 tablet by mouth in the morning. [facility] aspirin 81 mg Cap 12-21 00:00: 00 Yes [id number] 1{capsu le} Take 1 capsule by mouth daily. [facility] benzonatate 200 mg capsule 12-21 00:00: 00 Yes [id number] 200mg Take 1 capsule by mouth 3 (three) times daily as needed for Cough. [facility] atorvastati n 40 mg tablet 12-21 00:00: 00 Yes [id number] 40mg Take 1 tablet by mouth at bedtime. [facility] carvediloL 3.125 mg tablet 12-21 00:00: 00 Yes [id number] 3.125mg Take 1 tablet by mouth in the morning and 1 tablet in the evening. Take with meals. [facility] clopidogreL 75 mg tablet 12-21 00:00: 00 Yes [id number] 75mg Take 1 tablet by mouth in the morning. [facility] furosemide 40 mg tablet 12-21 00:00: 00 Yes [id number] 40mg Take 1 tablet by mouth in the morning. [facility] lisinopriL 5 mg tablet 12-21 00:00: 00 Yes [id number] 5mg Take 1 tablet by mouth in the morning. [facility] aspirin 81 mg Cap 12-21 00:00: 00 Yes [id number] 1{capsu le} Take 1 capsule by mouth daily. [facility] benzonatate 200 mg capsule 12-21 00:00: 00 Yes [id number] 200mg Take 1 capsule by mouth 3 (three) times daily as needed for Cough. [facility] atorvastati n 40 mg tablet 12-21 00:00: 00 Yes [id number] 40mg Take 1 tablet by mouth at bedtime. [facility] carvediloL 3.125 mg tablet 12-21 00:00: 00 Yes [id number] 3.125mg Take 1 tablet by mouth in the morning and 1 tablet in the evening. Take with meals. [facility] clopidogreL 75 mg tablet 12-21 00:00: 00 Yes [id number] 75mg Take 1 tablet by mouth in the morning. [facility] furosemide 40 mg tablet 12-21 00:00: 00 Yes [id number] 40mg Take 1 tablet by mouth in the morning. [facility] lisinopriL 5 mg tablet 12-21 00:00: 00 Yes [id number] 5mg Take 1 tablet by mouth in the morning. [facility] aspirin 81 mg Cap 12-21 00:00: 00 Yes [id number] 1{capsu le} Take 1 capsule by mouth daily. [facility] benzonatate 200 mg capsule 12-21 00:00: 00 Yes [id number] 200mg Take 1 capsule by mouth 3 (three) times daily as needed for Cough. [facility] atorvastati n 40 mg tablet 12-21 00:00: 00 Yes [id number] 40mg Take 1 tablet by mouth at bedtime. [facility] carvediloL 3.125 mg tablet 12-21 00:00: 00 Yes [id number] 3.125mg Take 1 tablet by mouth in the morning and 1 tablet in the evening. Take with meals. [facility] clopidogreL 75 mg tablet 12-21 00:00: 00 Yes [id number] 75mg Take 1 tablet by mouth in the morning. [facility] furosemide 40 mg tablet 12-21 00:00: 00 Yes [id number] 40mg Take 1 tablet by mouth in the morning. [facility] lisinopriL 5 mg tablet 12-21 00:00: 00 Yes [id number] 5mg Take 1 tablet by mouth in the morning. [facility] aspirin 81 mg Cap 12-21 00:00: 00 Yes [id number] 1{capsu le} Take 1 capsule by mouth daily. [facility] benzonatate 200 mg capsule 12-21 00:00: 00 Yes [id number] 200mg Take 1 capsule by mouth 3 (three) times daily as needed for Cough. [facility] atorvastati n 40 mg tablet 12-21 00:00: 00 Yes [id number] 40mg Take 1 tablet by mouth at bedtime. [facility] carvediloL 3.125 mg tablet 12-21 00:00: 00 Yes [id number] 3.125mg Take 1 tablet by mouth in the morning and 1 tablet in the evening. Take with meals. [facility] clopidogreL 75 mg tablet 12-21 00:00: 00 Yes [id number] 75mg Take 1 tablet by mouth in the morning. [facility] lisinopriL 5 mg tablet 12-21 00:00: 00 Yes [id number] 5mg Take 1 tablet by mouth in the morning. [facility] aspirin 81 mg Cap 12-21 00:00: 00 Yes [id number] 1{capsu le} Take 1 capsule by mouth daily. [facility] benzonatate 200 mg capsule 12-21 00:00: 00 Yes [id number] 200mg Take 1 capsule by mouth 3 (three) times daily as needed for Cough. [facility] atorvastati n 40 mg tablet 12-21 00:00: 00 Yes [id number] 40mg Take 1 tablet by mouth at bedtime. [facility] carvediloL 3.125 mg tablet 12-21 00:00: 00 Yes [id number] 3.125mg Take 1 tablet by mouth in the morning and 1 tablet in the evening. Take with meals. [facility] clopidogreL 75 mg tablet 12-21 00:00: 00 Yes [id number] 75mg Take 1 tablet by mouth in the morning. [facility] lisinopriL 5 mg tablet 12-21 00:00: 00 Yes [id number] 5mg Take 1 tablet by mouth in the morning. [facility] aspirin 81 mg Cap 12-21 00:00: 00 Yes [id number] 1{capsu le} Take 1 capsule by mouth daily. [facility] benzonatate 200 mg capsule 12-21 00:00: 00 Yes [id number] 200mg Take 1 capsule by mouth 3 (three) times daily as needed for Cough. [facility] atorvastati n 40 mg tablet 12-21 00:00: 00 Yes [id number] 40mg Take 1 tablet by mouth at bedtime. [facility] carvediloL 3.125 mg tablet 12-21 00:00: 00 Yes [id number] 3.125mg Take 1 tablet by mouth in the morning and 1 tablet in the evening. Take with meals. [facility] clopidogreL 75 mg tablet 12-21 00:00: 00 Yes [id number] 75mg Take 1 tablet by mouth in the morning. [facility] lisinopriL 5 mg tablet 12-21 00:00: 00 Yes [id number] 5mg Take 1 tablet by mouth in the morning. [facility] aspirin 81 mg Cap 12-21 00:00: 00 Yes [id number] 1{capsu le} Take 1 capsule by mouth daily. [facility] benzonatate 200 mg capsule 12-21 00:00: 00 Yes [id number] 200mg Take 1 capsule by mouth 3 (three) times daily as needed for Cough. [facility] atorvastati n 40 mg tablet 12-21 00:00: 00 Yes [id number] 40mg Take 1 tablet by mouth at bedtime. [facility] carvediloL 3.125 mg tablet 12-21 00:00: 00 Yes [id number] 3.125mg Take 1 tablet by mouth in the morning and 1 tablet in the evening. Take with meals. [facility] clopidogreL 75 mg tablet 12-21 00:00: 00 Yes [id number] 75mg Take 1 tablet by mouth in the morning. [facility] furosemide 40 mg tablet 12-21 00:00: 00 Yes [id number] 40mg Take 1 tablet by mouth in the morning. [facility] lisinopriL 5 mg tablet 12-21 00:00: 00 Yes [id number] 5mg Take 1 tablet by mouth in the morning. [facility] aspirin 81 mg Cap 12-21 00:00: 00 Yes [id number] 1{capsu le} Take 1 capsule by mouth daily. [facility] benzonatate 200 mg capsule 12-21 00:00: 00 Yes [id number] 200mg Take 1 capsule by mouth 3 (three) times daily as needed for Cough. [facility] atorvastati n 40 mg tablet 12-21 00:00: 00 Yes [id number] 40mg Take 1 tablet by mouth at bedtime. [facility] carvediloL 3.125 mg tablet 12-21 00:00: 00 Yes [id number] 3.125mg Take 1 tablet by mouth in the morning and 1 tablet in the evening. Take with meals. [facility] clopidogreL 75 mg tablet 12-21 00:00: 00 Yes [id number] 75mg Take 1 tablet by mouth in the morning. [facility] furosemide 40 mg tablet 12-21 00:00: 00 Yes [id number] 40mg Take 1 tablet by mouth in the morning. [facility] lisinopriL 5 mg tablet 12-21 00:00: 00 Yes [id number] 5mg Take 1 tablet by mouth in the morning. [facility] aspirin 81 mg Cap 12-21 00:00: 00 Yes [id number] 1{capsu le} Take 1 capsule by mouth daily. [facility] atorvastati n 40 mg tablet 12-21 00:00: 00 01-22 00:00 :00 No [id number] 40mg Take 1 tablet by mouth at bedtime. [facility] carvediloL 3.125 mg tablet 12-21 00:00: 00 01-22 00:00 :00 No [id number] 3.125mg Take 1 tablet by mouth in the morning and 1 tablet in the evening. Take with meals. [facility] clopidogreL 75 mg tablet 12-21 00:00: 00 01-22 00:00 :00 No [id number] 75mg Take 1 tablet by mouth in the morning. [facility] lisinopriL 5 mg tablet 12-21 00:00: 00 01-22 00:00 :00 No [id number] 5mg Take 1 tablet by mouth in the morning. [facility] aspirin 81 mg Cap 12-21 00:00: 00 01-22 00:00 :00 No [id number] 1{capsu le} Take 1 capsule by mouth daily. [facility] benzonatate 200 mg capsule 12-21 00:00: 01-22 00:00 :00 No [id number] 200mg Take 1 capsule by mouth 3 (three) times daily as needed for Cough. [facility] atorvastati n 40 mg tablet 12-21 00:00: 00 01-22 00:00 :00 No [id number] 40mg Take 1 tablet by mouth at bedtime. [facility] carvediloL 3.125 mg tablet 12-21 00:00: 00 01-22 00:00 :00 No [id number] 3.125mg Take 1 tablet by mouth in the morning and 1 tablet in the evening. Take with meals. [facility] clopidogreL 75 mg tablet 12-21 00:00: 00 01-22 00:00 :00 No [id number] 75mg Take 1 tablet by mouth in the morning. [facility] lisinopriL 5 mg tablet 12-21 00:00: 00 01-22 00:00 :00 No [id number] 5mg Take 1 tablet by mouth in the morning. [facility] aspirin 81 mg Cap 12-21 00:00: 00 01-22 00:00 :00 No [id number] 1{capsu le} Take 1 capsule by mouth daily. [facility] benzonatate 200 mg capsule 12-21 00:00: 00 01-22 00:00 :00 No [id number] 200mg Take 1 capsule by mouth 3 (three) times daily as needed for Cough. [facility] atorvastati n 40 mg tablet 12-21 00:00: 00 01-22 00:00 :00 No [id number] 40mg Take 1 tablet by mouth at bedtime. [facility] carvediloL 3.125 mg tablet 12-21 00:00: 00 01-22 00:00 :00 No [id number] 3.125mg Take 1 tablet by mouth in the morning and 1 tablet in the evening. Take with meals. [facility] clopidogreL 75 mg tablet 12-21 00:00: 00 01-22 00:00 :00 No [id number] 75mg Take 1 tablet by mouth in the morning. [facility] lisinopriL 5 mg tablet 12-21 00:00: 00 01-22 00:00 :00 No [id number] 5mg Take 1 tablet by mouth in the morning. [facility] aspirin 81 mg Cap 12-21 00:00: 00 01-22 00:00 :00 No [id number] 1{capsu le} Take 1 capsule by mouth daily. [facility] benzonatate 200 mg capsule 12-21 00:00: 00 01-22 00:00 :00 No [id number] 200mg Take 1 capsule by mouth 3 (three) times daily as needed for Cough. [facility] atorvastati n 40 mg tablet 12-21 00:00: 00 01-22 00:00 :00 No [id number] 40mg Take 1 tablet by mouth at bedtime. [facility] carvediloL 3.125 mg tablet 12-21 00:00: 00 01-22 00:00 :00 No [id number] 3.125mg Take 1 tablet by mouth in the morning and 1 tablet in the evening. Take with meals. [facility] clopidogreL 75 mg tablet 12-21 00:00: 00 01-22 00:00 :00 No [id number] 75mg Take 1 tablet by mouth in the morning. [facility] lisinopriL 5 mg tablet 12-21 00:00: 00 01-22 00:00 :00 No [id number] 5mg Take 1 tablet by mouth in the morning. [facility] aspirin 81 mg Cap 12-21 00:00: 00 01-22 00:00 :00 No [id number] 1{capsu le} Take 1 capsule by mouth daily. [facility] benzonatate 200 mg capsule 12-21 00:00: 00 01-22 00:00 :00 No [id number] 200mg Take 1 capsule by mouth 3 (three) times daily as needed for Cough. [facility] atorvastati n 40 mg tablet 12-21 00:00: 00 01-22 00:00 :00 No [id number] 40mg Take 1 tablet by mouth at bedtime. [facility] carvediloL 3.125 mg tablet 12-21 00:00: 00 01-22 00:00 :00 No [id number] 3.125mg Take 1 tablet by mouth in the morning and 1 tablet in the evening. Take with meals. [facility] clopidogreL 75 mg tablet 12-21 00:00: 00 01-22 00:00 :00 No [id number] 75mg Take 1 tablet by mouth in the morning. [facility] lisinopriL 5 mg tablet 12-21 00:00: 00 01-22 00:00 :00 No [id number] 5mg Take 1 tablet by mouth in the morning. [facility] aspirin 81 mg Cap 12-21 00:00: 00 01-22 00:00 :00 No [id number] 1{capsu le} Take 1 capsule by mouth daily. [facility] benzonatate 200 mg capsule 12-21 00:00: 00 01-22 00:00 :00 No [id number] 200mg Take 1 capsule by mouth 3 (three) times daily as needed for Cough. [facility] furosemide 40 mg tablet 12-21 00:00: 00 01-16 00:00 :00 No [id number] 40mg Take 1 tablet by mouth in the morning. [facility] furosemide 40 mg tablet 12-21 00:00: 00 01-16 00:00 :00 No [id number] 40mg Take 1 tablet by mouth in the morning. [facility] furosemide 40 mg tablet 12-21 00:00: 00 01-16 00:00 :00 No [id number] 40mg Take 1 tablet by mouth in the morning. [facility] furosemide 40 mg tablet 12-21 00:00: 00 01-16 00:00 :00 No [id number] 40mg Take 1 tablet by mouth in the morning. [facility] furosemide 40 mg tablet 12-21 00:00: 00 01-16 00:00 :00 No [id number] 40mg Take 1 tablet by mouth in the morning. [facility] furosemide 40 mg tablet 12-21 00:00: 00 01-16 00:00 :00 No [id number] 40mg Take 1 tablet by mouth in the morning. [facility] azithromyci n 250 mg tablet 12-21 00:00: 00 12-28 05:59 :00 No [id number] 250mg Take 1 tablet by mouth in the morning for 6 days. Take 500 mg day 1, then 250 mg days 2 to 5. [facility] azithromyci n 250 mg tablet 12-21 00:00: 00 12-28 05:59 :00 No [id number] 250mg Take 1 tablet by mouth in the morning for 6 days. Take 500 mg day 1, then 250 mg days 2 to 5. [facility] azithromyci n 250 mg tablet 12-21 00:00: 00 12-28 05:59 :00 No [id number] 250mg Take 1 tablet by mouth in the morning for 6 days. Take 500 mg day 1, then 250 mg days 2 to 5. [facility] TYLENOL-COD EINE #3 300-30 mg tablet 08-06 00:00: 00 Yes 1{tbl} Take 1 tablet by mouth every 4 (four) hours as needed for Pain (scale 4-6). [facility] IBUPROFEN 400 mg tablet 08-06 00:00: 00 Yes 400mg Take 1 tablet by mouth every 6 (six) hours as needed for Pain (scale 1-3). [facility] TYLENOL-COD EINE #3 300-30 mg tablet 08-06 00:00: 00 12-21 00:00 :00 No 1{tbl} Take 1 tablet by mouth every 4 (four) hours as needed for Pain (scale 4-6). [facility] IBUPROFEN 400 mg tablet 08-06 00:00: 00 12-21 00:00 :00 No 400mg Take 1 tablet by mouth every 6 (six) hours as needed for Pain (scale 1-3). [facility] TYLENOL-COD EINE #3 300-30 mg tablet 08-06 00:00: 00 12-21 00:00 :00 No 1{tbl} Take 1 tablet by mouth every 4 (four) hours as needed for Pain (scale 4-6). [facility] IBUPROFEN 400 mg tablet 08-06 00:00: 00 12-21 00:00 :00 No 400mg Take 1 tablet by mouth every 6 (six) hours as needed for Pain (scale 1-3). [facility] TYLENOL-COD EINE #3 300-30 mg tablet 08-06 00:00: 00 12-21 00:00 :00 No 1{tbl} Take 1 tablet by mouth every 4 (four) hours as needed for Pain (scale 4-6). [facility] IBUPROFEN 400 mg tablet 08-06 00:00: 00 12-21 00:00 :00 No 400mg Take 1 tablet by mouth every 6 (six) hours as needed for Pain (scale 1-3). [facility] Vital Signs Vital Name Observation Time Observation Value Comments S alesha Systolic blood pressure 2023-07-16 19:38:00 118 mm[Hg] [facility] Diastolic blood pressure 2023-07-16 19:38:00 64 mm[Hg] [facility] Heart rate 2023-07-16 19:38:00 74 /min [facility] Respiratory rate 2023-07-16 19:38:00 19 /min [facility] Body height 2023-07-16 19:38:00 186.7 cm [facility] Body weight 2023-07-16 19:38:00 95.437 kg [facility] BMI 2023-07-16 19:38:00 27.38 kg/m2 [facility] Oxygen saturation in Arterial blood by Pulse oximetry 2023-07-16 19:38:00 95 /min [facility] Systolic blood pressure 2023-07-06 21:55:00 122 mm[Hg] [facility] Diastolic blood pressure 2023-07-06 21:55:00 78 mm[Hg] [facility] Heart rate 2023-07-06 21:55:00 78 /min [facility] Body temperature 2023-07-06 21:55:00 36.11 [facility] Respiratory rate 2023-07-06 21:55:00 22 /min [facility] Oxygen saturation in Arterial blood by Pulse oximetry 2023-07-06 21:55:00 94 /min [facility] Body height 2023-07-06 16:14:00 185.4 cm [facility] Body weight 2023-07-06 16:14:00 95.3 kg [facility] BMI 2023-07-06 16:14:00 27.72 kg/m2 [facility] Systolic blood pressure 2023-07-06 20:45:00 136 mm[Hg] [facility] Diastolic blood pressure 2023-07-06 20:45:00 78 mm[Hg] [facility] Heart rate 2023-07-06 20:45:00 76 /min [facility] Respiratory rate 2023-07-06 20:45:00 24 /min [facility] Oxygen saturation in Arterial blood by Pulse oximetry 2023-07-06 20:45:00 95 /min [facility] Body temperature 2023-07-06 20:37:00 35.83 [facility] Body height 2023-07-06 16:14:00 185.4 cm [facility] Body weight 2023-07-06 16:14:00 95.3 kg [facility] BMI 2023-07-06 16:14:00 27.72 kg/m2 [facility] Systolic blood pressure 2023-06-01 15:25:00 140 mm[Hg] [facility] Diastolic blood pressure 2023-06-01 15:25:00 87 mm[Hg] [facility] Heart rate 2023-06-01 15:25:00 64 /min [facility] Oxygen saturation in Arterial blood by Pulse oximetry 2023-06-01 15:25:00 96 /min [facility] BMI 2023-06-01 15:22:00 29.03 kg/m2 [facility] Body temperature 2023-06-01 15:22:00 36.83 [facility] Respiratory rate 2023-06-01 15:22:00 18 /min [facility] Body height 2023-06-01 15:22:00 184.2 cm [facility] Body weight 2023-06-01 15:22:00 98.431 kg [facility] Systolic blood pressure 2023-05-21 19:25:00 116 mm[Hg] [facility] Diastolic blood pressure 2023-05-21 19:25:00 78 mm[Hg] [facility] Heart rate 2023-05-21 19:25:00 51 /min [facility] Body temperature 2023-05-21 19:25:00 36.28 [facility] Body height 2023-05-21 19:25:00 186.7 cm [facility] Body weight 2023-05-21 19:25:00 95.255 kg [facility] BMI 2023-05-21 19:25:00 27.33 kg/m2 [facility] Oxygen saturation in Arterial blood by Pulse oximetry 2023-05-21 19:25:00 97 /min [facility] Systolic blood pressure 2023-05-10 13:08:00 117 mm[Hg] [facility] Diastolic blood pressure 2023-05-10 13:08:00 70 mm[Hg] [facility] Heart rate 2023-05-10 13:08:00 68 /min [facility] Body temperature 2023-05-10 13:08:00 36.67 [facility] Respiratory rate 2023-05-10 13:08:00 18 /min [facility] Body weight 2023-05-10 13:08:00 91.218 kg [facility] BMI 2023-05-10 13:08:00 26.17 kg/m2 [facility] Oxygen saturation in Arterial blood by Pulse oximetry 2023-05-10 13:08:00 97 /min [facility] Systolic blood pressure 2023-04-18 18:05:00 127 mm[Hg] [facility] Diastolic blood pressure 2023-04-18 18:05:00 76 mm[Hg] [facility] Heart rate 2023-04-18 18:05:00 81 /min [facility] Body temperature 2023-04-18 18:05:00 36.17 [facility] Respiratory rate 2023-04-18 18:05:00 18 /min [facility] Body height 2023-04-18 18:05:00 186.7 cm [facility] Body weight 2023-04-18 18:05:00 97.886 kg [facility] BMI 2023-04-18 18:05:00 28.09 kg/m2 [facility] Oxygen saturation in Arterial blood by Pulse oximetry 2023-04-18 18:05:00 96 /min [facility] Systolic blood pressure 2023-04-12 13:38:00 127 mm[Hg] [facility] Diastolic blood pressure 2023-04-12 13:38:00 83 mm[Hg] [facility] Heart rate 2023-04-12 13:34:00 85 /min [facility] Body temperature 2023-04-12 13:34:00 36.28 [facility] Respiratory rate 2023-04-12 13:34:00 18 /min [facility] Body height 2023-04-12 13:34:00 186.7 cm [facility] Body weight 2023-04-12 13:34:00 96.117 kg [facility] BMI 2023-04-12 13:34:00 27.58 kg/m2 [facility] Oxygen saturation in Arterial blood by Pulse oximetry 2023-04-12 13:34:00 96 /min [facility] Systolic blood pressure 2023-01-24 17:37:00 117 mm[Hg] [facility] Diastolic blood pressure 2023-01-24 17:37:00 65 mm[Hg] [facility] Heart rate 2023-01-24 17:37:00 40 /min [facility] Body temperature 2023-01-24 17:37:00 36.33 [facility] Respiratory rate 2023-01-24 17:37:00 18 /min [facility] Oxygen saturation in Arterial blood by Pulse oximetry 2023-01-24 17:37:00 93 /min [facility] Body height 2023-01-20 00:00:00 185.4 cm [facility] Body weight 2023-01-20 00:00:00 108.863 kg [facility] BMI 2023-01-20 00:00:00 31.66 kg/m2 [facility] Systolic blood pressure 2023-01-22 15:41:00 121 mm[Hg] [facility] Diastolic blood pressure 2023-01-22 15:41:00 82 mm[Hg] [facility] Heart rate 2023-01-22 15:41:00 86 /min [facility] Body temperature 2023-01-22 15:41:00 35.89 [facility] Respiratory rate 2023-01-22 15:41:00 18 /min [facility] Oxygen saturation in Arterial blood by Pulse oximetry 2023-01-22 15:41:00 99 /min [facility] Body height 2023-01-20 00:00:00 185.4 cm [facility] Body weight 2023-01-20 00:00:00 108.863 kg [facility] BMI 2023-01-20 00:00:00 31.66 kg/m2 [facility] Systolic blood pressure 2023-01-16 20:57:00 130 mm[Hg] [facility] Diastolic blood pressure 2023-01-16 20:57:00 89 mm[Hg] [facility] Heart rate 2023-01-16 20:57:00 92 /min [facility] Body temperature 2023-01-16 20:57:00 35.94 [facility] Respiratory rate 2023-01-16 20:57:00 20 /min [facility] Body height 2023-01-16 20:57:00 186.7 cm [facility] Body weight 2023-01-16 20:57:00 102.876 kg [facility] BMI 2023-01-16 20:57:00 29.52 kg/m2 [facility] Oxygen saturation in Arterial blood by Pulse oximetry 2023-01-16 20:57:00 97 /min [facility] Systolic blood pressure 2023-01-09 20:08:00 104 mm[Hg] [facility] Diastolic blood pressure 2023-01-09 20:08:00 70 mm[Hg] [facility] Heart rate 2023-01-09 20:08:00 94 /min [facility] Body temperature 2023-01-09 20:08:00 37 [facility] Respiratory rate 2023-01-09 20:08:00 16 /min [facility] Body height 2023-01-09 20:08:00 186.7 cm [facility] Body weight 2023-01-09 20:08:00 99.655 kg [facility] BMI 2023-01-09 20:08:00 28.59 kg/m2 [facility] Oxygen saturation in Arterial blood by Pulse oximetry 2023-01-09 20:08:00 97 /min [facility] Systolic blood pressure 2023-01-05 21:00:00 110 mm[Hg] [facility] Diastolic blood pressure 2023-01-05 21:00:00 79 mm[Hg] [facility] Heart rate 2023-01-05 21:00:00 69 /min [facility] Respiratory rate 2023-01-05 21:00:00 12 /min [facility] Oxygen saturation in Arterial blood by Pulse oximetry 2023-01-05 21:00:00 95 /min [facility] Body temperature 2023-01-05 17:11:00 36.5 [facility] Body height 2023-01-05 17:11:00 185.4 cm [facility] Body weight 2023-01-05 17:11:00 113.399 kg [facility] BMI 2023-01-05 17:11:00 32.98 kg/m2 [facility] Systolic blood pressure 2022-12-21 16:46:00 116 mm[Hg] [facility] Diastolic blood pressure 2022-12-21 16:46:00 85 mm[Hg] [facility] Heart rate 2022-12-21 16:46:00 93 /min [facility] Body height 2022-12-21 16:46:00 186.7 cm [facility] Body weight 2022-12-21 16:46:00 100.699 kg [facility] BMI 2022-12-21 16:46:00 28.89 kg/m2 [facility] Oxygen saturation in Arterial blood by Pulse oximetry 2022-12-21 16:46:00 97 /min [facility] Procedures Procedure Date / Time Performed Performing Clinician Source INGUINAL HERNIORRHAPHY 2023-07-06 17:02:00 Kimberly Grijalva [facility] DAY SURGERY - ADC 2023-07-06 05:01:00 Doctor Ghazala ssigned, [place] [facility] PATIENT QUESTIONNAIRE 2023-06-01 05:01:00 Doctor Unassigned, [place] CT ABDOMEN PELVIS WO CONTRAST 2023-05-21 17:41:51 Femi Disla [facility] REFERRAL- REQUEST/RESPONSE 2023-05-10 05:01:00 Federico ayala Unassigned, [place] PATIENT FINANCIAL POLICY 2023-04-12 13:27:39 Doctor Unassigned, [place] [facility] PHYSICIAN CERTIFICATION STATEMENT 2023-03-22 05:01:00 Doctor Unassigned, [place] EXTERNAL PROVIDER RECORDS 2023-02-05 05:01:00 Do ctor Unassigned, [place] [facility] MAGNESIUM 2023-01-24 10:06:00 Esther Spain [facility] BASIC METABOLIC PANEL (NA, K, CL, CO2, GLUCOSE, BUN, CREATININE, CA) 2023-01-24 10:06:00 [facility]HYTHM STRIP 2023-01-23 13:47:06 Denys Waldrop [facility] MAGNESIUM 2023-01-23 09:19:00 Chidi [facility] BASIC METABOLIC PANEL (NA, K, CL, CO2, GLUCOSE, BUN, CREATININE, CA) 2023-01-23 09:19:00 Esther Spain [facility] MAGNESIUM 2023-01-23 09:19:00 [facility] (NA, K, CL, CO2, GLUCOSE, BUN, CREATININE, CA) 2023-01-23 09:19:00 Esther Spain [facility] REFERRAL- REQUEST/RESPONSE 2023-01-23 06:01:00 D octor Unassigned, [place] [facility] REFERRAL- REQUEST/RESPONSE 2023-01-23 06:01:00 D octor Unassigned, [place] [facility] ACTIVATED PARTIAL THRMPLAS KENDELL 2023-01-22 19:38:00 Christopher Ortiz [facility] ACTIVATED PARTIAL THRMPLAS KENDELL 2023-01-22 19:38:00 Christopher Ortiz [facility] ACTIVATED PARTIAL THRMPLAS KENDELL 2023-01-22 17:04:00 Christopher Ortiz [facility] ACTIVATED PARTIAL THRMPLAS KENDELL 2023-01-22 17:04:00 Christopher Ortiz [facility] CARDIAC CATHETERIZATION 2023-01-22 14:48:33 Abdulla, A [facility] CARDIAC CATHETERIZATION 2023-01-22 14:48:33 Hernán Nolan [facility] CARDIAC CATHETERIZATION 2023-01-22 14:48:33 Hernán Nolan [facility] CARDIAC CATHETERIZATION 2023-01-22 14:48:33 Hernán Nolan [facility] CARDIAC CATHETERIZATION 2023-01-22 14:48:33 Hernán Nolan [facility] CARDIAC CATHETERIZATION 2023-01-22 14:48:33 Hernán Nolan [facility] CARDIAC CATHETERIZATION 2023-01-22 14:48:33 Hernán Nolan [facility] CARDIAC CATHETERIZATION 2023-01-22 14:48:33 Hernán Nolan [facility] POCT ACT LOW RANGE 2023-01-22 14:47:00 Adeline [facility] POCT ACT LOW RANGE 2023-01-22 14:47:00 Adeline [facility] POCT ACT LOW RANGE 2023-01-22 14:27:00 Adeline [facility] POCT ACT LOW RANGE 2023-01-22 14:27:00 Adeline [facility] MAGNESIUM 2023-01-22 10:47:00 Esther Spain [facility] BASIC METABOLIC PANEL (NA, K, CL, CO2, GLUCOSE, BUN, CREATININE, CA) 2023-01-22 10:47:00 Esther Spain [facility] CBC WITH DIFF 2023-01-22 10:47:00 Esther Spain [facility] N-TERMINAL PRO-BNP 2023-01-22 10:47:00 [facility]-22 10:47:00 Esther Spain [facility] BASIC METABOLIC PANEL (NA, K, CL, CO2, GLUCOSE, BUN, CREATININE, CA) 2023-01-22 10:47:00 Esther Spain [facility] CBC WITH DIFF 2023-01-22 10:47:00 Esther Spain [facility] N-TERMINAL PRO-BNP 2023-01-22 10:47:00 Esther Spain [facility] POCT GLUCOSE (AUTOMATED) 2023-01-21 13:41:00 [facility] 2023-01-21 13:41:00 Rochernán crandall [facility] URINE DRUG (IMMUNOASSAY) - COMPREHENSIVE DRUG SCREEN 2023-01-21 08:41:00 Grabiel [facility] URINE DRUG (IMMUNOASSAY) - COMPREHENSIVE DRUG SCREEN 2023-01-21 08:41:00 Grabiel [facility] MAGNESIUM 2023-01-21 08:39:00 Chidi [facility] BASIC METABOLIC PANEL (NA, K, CL, CO2, GLUCOSE, BUN, CREATININE, CA) 2023-01-21 08:39:00 [facility] SERUM [facility] (IMMUNOASSAY) - COMPREHENSIVE DRUG SCREEN 2023-01-21 08:39:00 Grabiel [facility] MAGNESIUM 2023-01-21 08:39:00 [facility] MET[facility]OLIC PANEL (NA, K, CL, CO2, GLUCOSE, BUN, CREATININE, CA) 2023-01-21 08:39:00 [facility] (IMMUNOASSAY) - COMPREHENSIVE DRUG SCREEN 2023-01-21 08:39:00 Grabiel [facility] MAGNESIUM 2023-01-20 11:22:00 Kelsey Ortiz [facility] BASIC METABOLIC PANEL (NA, K, CL, CO2, GLUCOSE, BUN, CREATININE, CA) 2023-01-20 11:22:00 Christopher Ortiz [facility] CBC WITH DIFF 2023-01-20 11:22:00 Kelsey Ortiz [facility] MAGNESIUM 2023-01-20 11:22:00 Kelsey Ortiz [facility] BASIC METABOLIC PANEL (NA, K, CL, CO2, GLUCOSE, BUN, CREATININE, CA) 2023-01-20 11:22:00 Christopher Ortiz [facility] CBC WITH DIFF 2023-01-20 11:22:00 Kelsey Ortiz [facility] TRANSTHORACIC ECHO (TTE) COMPLETE W/ CONTRAST 2023-01-19 20:22:12 Christopher Ortiz [facility] TRANSTHORACIC ECHO (TTE) COMPLETE W/ CONTRAST 2023-01-19 20:22:12 Christopher Ortiz [facility] BASIC METABOLIC PANEL (NA, K, CL, CO2, GLUCOSE, BUN, CREATININE, CA) 2023-01-19 18:40:00 Christopher Ortiz [facility] LIPID PANEL (99544)(TOTAL CHOLESTEROL, TRIGLYCERIDES, HDL) 2023-01-19 18:40:00 Christopher Ortiz [facility] CBC WITH DIFF 2023-01-19 18:40:00 Kelsey Ortiz [facility] GLYCOSYLATED HEMOGLOBIN (A1C) 2023-01-19 18:40:00 Christopher Ortiz [facility] PROTHROMBIN TIME / INR 2023-01-19 18:40:00 Davidnalv Christopher garcia [facility] N-TERMINAL PRO-BNP 2023-01-19 18:40:00 Christopher Ortiz [facility] BASIC METABOLIC PANEL (NA, K, CL, CO2, GLUCOSE, BUN, CREATININE, CA) 2023-01-19 18:40:00 Christopher Ortiz [facility] LIPID PANEL ([id number])(TOTAL CHOLESTEROL, TRIGLYCERIDES, HDL) 2023-01-19 18:40:00 Christopher Ortiz [facility] CBC WITH DIFF 2023-01-19 18:40:00 Kelsey Ortiz [facility] GLYCOSYLATED HEMOGLOBIN (A1C) 2023-01-19 18:40:00 Christopher Ortiz [facility] PROTHROMBIN TIME / INR 2023-01-19 18:40:00 Christopher Zambrano [facility] N-TERMINAL PRO-BNP 2023-01-19 18:40:00 Christopher Ortiz [facility] XR CHEST 1 VW 2023-01-19 17:47:00 AngelKelsey [facility] XR CHEST 1 VW 2023-01-19 17:47:00 Angel Kelsey hendricks Est[facility] MAGNESIUM 2023-01-05 18:12:00 Sayra Fox [facility] TROPONIN I 2023-01-05 18:12:00 Sayra Fox [facility] COMP. METABOLIC PANEL (67649) 2023-01-05 18:12:00 Sayra Fox [facility] CBC WITH DIFF 2023-01-05 18:12:00 [facility] 2023-01-05 18:12:00 Stuart Fox [facility] CONSENT/REFUSAL FOR DIAGNOSIS AND TREATMENT 2023-01-05 17:02:24 Doctor Unassigned, [place] [facility] REFERRAL- REQUEST/RESPONSE 2022-12-29 06:01:00 D octor Unassigned, [place] [facility] ASSIGNMENT OF BENEFITS 2022-12-21 16:16:06 Docto r Unassigned, [place] [facility] Encounters Start Date/Time End Date/Time Encounter Type Admission Type Attending [facility] Care Department Encounter ID Source 2023-06-08 11:26:19 Outpatient R LEYDA CORTÉS [facility] [id number] [facility] 2023-01-16 16:15:19 Inpatient [facility] [id number] [facility] 2023-12-20 13:00:00 2023-12-20 13:00:00 Outpatient LEYDA BALDWIN [facility] [id number] [facility] 2023-10-01 14:00:00 2023-10-01 14:00:00 Outpatient R VARUN CALLESLEIGHANN [facility] [id number] [facility] 2023-07-23 08:00:00 2023-07-23 08:00:00 Outpatient R ANNITA GRIJALVA [place] [facility] [id number] [facility] 2023-07-20 10:30:00 2023-07-20 10:30:00 Outpatient R FEMI DISLA [facility] [id number] [facility] 2023-07-19 11:00:00 2023-07-19 11:00:00 Outpatient R FEMI DISLA [facility] [id number] [facility] 2023-07-18 10:00:00 2023-07-18 10:00:00 Outpatient R LEYDA CORTÉS [facility] [facility] [id number] [facility] 2023-07-17 00:00:00 2023-07-17 00:00:00 Telephone Leyda Cortés [facility] 1.114 350.1.13.10 [id number] [id number] [facility] 2023-07-16 14:30:00 2023-07-16 15:10:12 Outpatient R DILIP LOUIE [facility] [id number] [facility] 2023-07-16 14:30:00 2023-07-16 15:10:12 Office Visit Dilip Louie [facility] 1..114 350.1.13.10 4.2.7.2.686 [id number] [facility] 2023-07-16 00:00:00 2023-07-16 00:00:00 Telephone Leyda Cortés [facility] 1.84.114 350.1.13.10 [id number] [id number] [facility] 2023-07-06 10:16:00 2023-07-06 17:15:00 Outpatient R GRIJALVAANNITA [facility] [id number] [facility] 2023-07-06 10:16:00 2023-07-06 17:15:00 Hospital Encounter [facility] [place] [id number] 350.1.13.10 4.2.7.2.686 [id number] [facility] 2023-07-06 12:35:00 2023-07-06 15:47:00 Surgery [facility] [place] [id number] 350.1.13.10 4.2.7.2.686 [id number] [facility] 2023-07-06 00:00:00 2023-07-06 00:00:00 Orders Only Doctor Unassigned, [place] [facility] [id number] 350.1.13.10 4.2.7.2.686 [id number] [facility] 2023-06-25 00:00:00 2023-06-25 00:00:00 Telephone Zenobia [facility] [employer] [id number] 350.1.13.10 4.2.7.2.686 [id number] [facility] 2023-06-19 11:30:00 2023-06-19 11:30:00 Outpatient R FEMI DISLA [facility] [id number] [facility] 2023-06-08 00:00:00 2023-06-08 00:00:00 Telephone Davy [facility] [employer] [id number] 350.1.13.10 4.2.7.2.686 [id number] [facility] 2023-06-07 10:53:23 2023-06-07 23:59:00 Outpatient R DEBBI MENDOZA [facility] [id number] [facility] 2023-06-06 13:15:00 2023-06-06 14:14:24 Outpatient R ANNITA GRIJALVA VIR[facility]IA [facility] [id number] [facility] 2023-06-04 00:00:00 2023-06-04 00:00:00 Telephone Leyda Cortés [facility] 1.114 350.1.13.10 4.2.7.2.686 [id number] [facility] 2023-06-01 10:15:00 2023-06-01 11:00:00 Office Visit Margot Agrawal [facility] 1.114 350.1.13.10 4.2.7.2.686 [id number] [facility] 2023-06-01 10:15:00 2023-06-01 10:15:00 Outpatient R SINAI AGRAWALTNEY [facility] [id number] [facility] 2023-06-01 00:00:00 2023-06-01 00:00:00 Orders Only Doctor Unassigned, [place] [facility] 1. 350.1.13.10 4.2.7.2.686 [id number] [facility] 2023-05-24 00:00:00 2023-05-24 00:00:00 Telephone Daisha Li 1.114 350.1.13.10 4.2.7.2.686 [id number] [facility] 2023-05-21 12:25:47 2023-05-21 23:59:00 Hospital Encounter Femi Disla [facility] 1.114 350.1.13.10 4.2.7.2.686 [id number] [facility] 2023-05-21 14:20:00 2023-05-21 15:36:30 [facility] [id number] [facility] 2023-05-21 14:20:00 2023-05-21 15:36:30 [facility] 1.84.114 350.1.13.10 4.2.7.2.686 [id number] [facility] 2023-05-14 00:00:00 2023-05-14 00:00:00 Telephone Kimjorgito [facility] BUILD[facility] 1.84.114 350.1.13.10 4.2.7.2.686 [id number] [facility] 2023-05-10 08:30:00 2023-05-10 09:10:39 Outpatient R [facility] [id number] [facility] 2023-05-10 08:30:00 2023-05-10 09:10:39 Office Visit Naif [facility] 1.84.114 350.1.13.10 4.2.7.2.686 [id number] [facility] 2023-05-10 00:00:00 2023-05-10 00:00:00 Orders Only Doctor Unassigned, [place] [facility] 1.114 350.1.13.10 4.2.7.2.686 [id number] [facility] 2023-05-03 00:00:00 2023-05-03 00:00:00 Telephone Margot Agrawal [facility] 1.0.114 350.1.13.10 4.2.7.2.686 [id number] [facility] 2023-05-03 00:00:00 2023-05-03 00:00:00 Telephone Naif [facility] 1.0.114 350.1.13.10 4.2.7.2.686 [id number] [facility] 2023-04-25 13:30:00 2023-04-25 13:30:00 Outpatient R LEYDA CORTÉS CHOCKALINGA M [facility] [id number] [facility] 2023-04-25 00:00:00 2023-04-25 00:00:00 Telephone Daisha Li 1..114 350.1.13.10 4.2.7.2.686 [id number] [facility] 2023-04-18 13:00:00 2023-04-18 13:46:45 Outpatient R LEYDA CORTÉS CHOCKALINGA M [facility] [id number] [facility] 2023-04-18 13:00:00 2023-04-18 13:46:45 Office Visit Leyda Cortés [facility] 1..114 350.1.13.10 4.2.7.2.686 [id number] [facility] 2023-04-12 10:15:00 2023-04-12 10:30:00 [place] Visit Lab, Giovani Quigley Naif [facility] 1.114 350.1.13.10 4.2.7.2.686 [id number] [facility] 2023-04-12 08:30:00 2023-04-12 09:53:58 Outpatient R FEMI DISLA [facility] [id number] [facility] 2023-04-12 08:30:00 2023-04-12 09:53:58 Office Visit Femi Disla [facility] 1..114 350.1.13.10 4.2.7.2.686 [id number] [facility] 2023-04-12 00:00:00 2023-04-12 00:00:00 Orders Only Doctor Unassigned, [place] [facility] 1..114 350.1.13.10 4.2.7.2.686 [id number] [facility] 2023-04-05 09:30:00 2023-04-05 09:30:00 Outpatient R FEMI DISLA [facility] [id number] [facility] 2023-03-22 00:00:00 2023-03-22 00:00:00 Orders Only Doctor Unassigned, [place] [facility] 1..114 350.1.13.10 4.2.7.2.686 [id number] [facility] 2023-02-16 11:00:00 2023-02-16 11:00:00 Outpatient R FEMI DISLA [facility] [id number] [facility] 2023-02-05 00:00:00 2023-02-05 00:00:00 Orders Only Doctor Unassigned, [place] [facility] 1..114 350.1.13.10 4.2.7.2.686 [id number] [facility] 2023-02-02 00:00:00 2023-02-02 00:00:00 Telephone Leyda Cortés [facility] 1..114 350.1.13.10 4.2.7.2.686 [id number] [facility] 2023-01-25 00:00:00 2023-01-25 00:00:00 Transition of Care Shari Castro 1.2.840.114 350.1.13.10 4.2.7.2.686 [id number] [facility] 2023-01-19 10:31:00 2023-01-24 15:38:00 [facility] [id number] 2023-01-19 10:31:00 2023-01-24 15:38:00 Hospital Encounter Adeline [facility] 1.2.840.114 350.1.13.10 4.2.7.2.686 [id number] [facility] 2023-01-24 00:00:00 2023-01-24 00:00:00 Telephone LiDaisha little 1.2.840.114 350.1.13.10 4.2.7.2.686 [id number] [facility] 2023-01-22 07:40:00 2023-01-22 10:40:00 Surgery Andrea Rucker [facility] 1.2.840.114 350.1.13.10 4.2.7.2.686 [id number] [facility] 2023-01-19 00:00:00 2023-01-19 00:00:00 Outpatient PIA DAY [facility] [id number] [facility] 15:00:00 2023-01-16 16:22:22 Outpatient R NEGIN SPAIN [facility] [id number] [facility] 2023-01-16 15:00:00 2023-01-16 16:22:22 Office Visit Negin Spain [facility] 1.2840.114 350.1.13.10 4.2.7.2.686 [id number] [facility] 2023-01-16 00:00:00 2023-01-16 00:00:00 Telephone Alejandre Annabelle Moscoso 1.2840.114 350.1.13.10 4.2.7.2.686 [id number] [id number] [facility] 2023-01-11 00:00:00 2023-01-11 00:00:00 Telephone Romana [facility] MED[facility] OFFICE BUILDING 1.2840.114 350.1.13.10 4.2.7.2.686 [id number] [facility] 2023-01-09 14:15:00 2023-01-09 14:30:00 Office Visit Romana [facility] MED[facility] OFF[facility] BUILD[facility] 1.840.114 350.1.13.10 4.2.7.2.686 [id number] [facility] 2023-01-09 14:15:00 2023-01-09 14:15:00 Outpatient R ROMANA [facility] [id number] [facility] 2023-01-05 11:11:00 2023-01-05 15:56:00 Emergency Sayra Fox [facility] 1.2840.114 350.1.13.10 4.2.7.2.686 [id number] [facility] 2023-01-05 11:11:00 2023-01-05 15:56:00 Emergency SAYRA ZHU [facility] E[facility] [id number] [facility] 2022-12-29 00:00:00 2022-12-29 00:00:00 Orders Only Doctor Unassigned, [place] [facility] 1.2840.114 350.1.13.10 4.2.7.2.686 [id number] [facility] 2022-12-21 10:30:00 2022-12-21 12:45:25 Office Visit Femi Disla [facility] 1.2.840.114 350.1.13.10 4.2.7.2.686 [id number] [facility] 2022-12-21 10:30:00 2022-12-21 12:45:25 Outpatient R FEMI DISLA [facility] [id number] [facility] 2022-12-21 00:00:00 2022-12-21 00:00:00 Orders Only Doctor Unassigned, [place] [facility] 1.2.840.114 350.1.13.10 4.2.7.2.686 [id number] [facility] 2022-12-06 11:44:19 2022-12-06 11:44:19 Outpatient [facility] [id number] Ten F Artem Results Test Description Test Time Test Comments Results Result Co mments Source [facility] ACT LOW [id number] 18:02:15* Test Item Value Reference Range Interpretation Comme nts ACTLR (test code = 4096474564) 299 See_Comment H [Automated messa ge] The system which generated this result transmitted reference range: 89 - 169 Seconds. The reference range was not used to interpret this result as normal/abnormal. Lab Interpretation (test code = 60128-8) [facility] [id number] 18:02:15* Test Item Value Reference Range Interpretation Comme nts ACTLR (test code = 7131445969) 299 See_Comment H [Automated messa ge] The system which generated this result transmitted reference range: 89 - 169 Seconds. The reference range was not used to interpret this result as normal/abnormal. Lab Interpretation (test code = 93053-4) [facility] [id number] 18:02:15* Test Item Value Reference Range Interpretation Comme nts ACTLR (test code = 3740435452) 299 See_Comment H [Automated [employer] ge] The system which generated this result transmitted reference range: 89 - 169 Seconds. The reference range was not used to interpret this result as normal/abnormal. Lab Interpretation (test code = 80654-9) Abnormal [facility] GLUCOSE (AUTOMATED)2023-01-21 13:42:28* Test Item Value Reference Range Interpretation Comme [facility] POCT GLU (test code = 2029396677) 166 mg/dL 70-110 H Lab Interpretation (test cod e = 98206-1) Abnormal [facility] GLUCOSE (AUTOMATED)2023-01-21 13:42:28* Test Item Value Reference Range Interpretation Comme [facility] POCT GLU (test code = 7963618293) 166 mg/dL 70-110 H Lab Interpretation (test cod e = 96254-4) Abnormal [facility] METABOLIC PANEL (NA, K, CL, CO2, GLUCOSE, BUN, CREATININE, CA)2023-01-20 12:25:19* Test Item Value Reference Range Interpretation Comme [facility] NA (test code = 7198524207) 142 mmol/L 135-145 K (test code = 9346745445) 3.7 mmol/L 3.5-5.0 Slight hemolysis CL (test code = 9344859819) 101 mmol/L 98-108 CO2 TOTAL (test code = 2343484515) 33 mmol/L 23-31 H AGAP (test code = 8238424936) 8 2-16 BUN (test code = 6999612315) 17 mg/dL 7-23 Slight hemolysis GLUCOSE (test code = 3091702077) 146 mg/dL 70-110 H CREATININE (test code = 1824955971) 1.25 mg/dL 0.60-1.25 CALCIUM (test code = 9984464387) 8.9 mg/dL 8.6-10.6 eGFR (test code = 3682763009) 59.7 mL/min/1.73m2 ALCIDES (test code = ALCIDES) Association of [...] or abnormalities in imaging tests). Lab Interpretation (test code = 59037-7) [facility] 12:25:19* Test Item Value Reference Range Interpretation Comme nts MAGNESIUM (test code = 7200032459) 2.0 mg/dL 1.7-2.4 Lab Interpretation (test cod e = 39720-8) [facility] (NA, K, CL, CO2, GLUCOSE, BUN, CREATININE, CA)2023-01-20 12:25:19* Test Item Value Reference Range Interpretation Comme nts NA (test code = 9130787892) 142 mmol/L 135-145 K (test code = 1002680828) 3.7 mmol/L 3.5-5.0 Slight hemolysis CL (test code = 2827814912) 101 mmol/L 98-108 CO2 TOTAL (test code = 6449535666) 33 mmol/L 23-31 H AGAP (test code = 5167963200) 8 2-16 BUN (test code = 1444632434) 17 mg/dL 7-23 Slight hemolysis GLUCOSE (test code = 1395730793) 146 mg/dL 70-110 H CREATININE (test code = 0893227017) 1.25 mg/dL 0.60-1.25 CALCIUM (test code = 4280676029) 8.9 mg/dL 8.6-10.6 eGFR (test code = 4519944343) 59.7 mL/min/1.73m2 ALCIDES (test code = ALCIDES) Association of [...] or abnormalities in imaging tests). Lab Interpretation (test code = 17596-7) [facility] 12:25:19* Test Item Value Reference Range Interpretation Comme nts MAGNESIUM (test code = 3977681872) 2.0 mg/dL 1.7-2.4 Lab Interpretation (test cod e = 83086-6) Normal [facility] WITH [id number] 11:55:13* Test Item Value Reference Range Interpretation Comme nts WBC (test code = 6690-2) 9.58 See_Comment [Automated messa ge] The system which generated this result transmitted reference range: 4.20 - 10.70 10*3/?L. The reference range was not used to interpret this result as normal/abnormal. RBC (test code = 789-8) 5.09 See_Comment [Automated messa ge] The system which generated this result transmitted reference range: 4.26 - 5.52 10*6/?L. The reference range was not used to interpret this result as normal/abnormal. HGB (test code = 718-7) 13.2 g/dL 12.2-16.4 HCT (test code = 4544-3) 42.4 % 38.4-49.3 MCV (test code = 787-2) 83.3 fL 81.7-95.6 MCH (test code = 785-6) 25.9 pg 26.1-32.7 L MCHC (test code = 786-4) 31.1 g/dL 31.2-35.0 L RDW-SD (test code = 22043-8) 48.9 fL 38.5-51.6 RDW-CV (test code = 788-0) 16.0 % 12.1-15.4 H PLT (test code = 777-3) 238 See_Comment [Automated messa ge] The system which generated this result transmitted reference range: 150 - 328 10*3/?L. The reference range was not used to interpret this result as normal/abnormal. MPV (test code = 33044-9) 10.5 fL 9.8-13.0 NRBC/100 WBC (test code = 3524414512) 0.0 See_Comment [Automated [employer]] The system which generated this result transmitted reference range: 0.0 - 10.0 /100 WBCs. The reference range was not used to interpret this result as normal/abnormal. NRBC x10^3 (test code = 5679690917) See_Comment [Automated messa ge] The system which generated this result transmitted reference range: 10*3/?L. The reference range was not used to interpret this result as normal/abnormal. GRAN MAT (NEUT) % (test code = 770-8) 65.0 % IMM GRAN % (test code = 3880498263) 0.50 % LYMPH % (test code = 736-9) 23.1 % MONO % (test code = 5905-5) 7.6 % EOS % (test code = 713-8) 3.4 % BASO % (test code = 706-2) 0.4 % GRAN MAT x10^3(ANC) (test code = 0950275499) 6.22 10*3/uL 1.99-6.95 IMM GRAN x10^3 (test code = 9580451659) 0.05 10*3/uL 0.00-0.06 LYMPH x10^3 (test code = 731-0) 2.21 10*3/uL 1.09-3.23 MONO x10^3 (test code = 742-7) 0.73 10*3/uL 0.36-1.02 EOS x10^3 (test code = 711-2) 0.33 10*3/uL 0.06-0.53 BASO x10^3 (test code = 704-7) 0.04 10*3/uL 0.01-0.09 Lab Interpretation (test code = 07225-9) Abnormal [facility] WITH [id number] 11:55:13* Test Item Value Reference Range Interpretation Comme nts WBC (test code = 6690-2) 9.58 See_Comment [Automated [employer]] The system which generated this result transmitted reference range: 4.20 - 10.70 10*3/?L. The reference range was not used to interpret this result as normal/abnormal. RBC (test code = 789-8) 5.09 See_Comment [Automated [employer]] The system which generated this result transmitted reference range: 4.26 - 5.52 10*6/?L. The reference range was not used to interpret this result as normal/abnormal. HGB (test code = 718-7) 13.2 g/dL 12.2-16.4 HCT (test code = 4544-3) 42.4 % 38.4-49.3 MCV (test code = 787-2) 83.3 fL 81.7-95.6 MCH (test code = 785-6) 25.9 pg 26.1-32.7 L MCHC (test code = 786-4) 31.1 g/dL 31.2-35.0 L RDW-SD (test code = 11445-6) 48.9 fL 38.5-51.6 RDW-CV (test code = 788-0) 16.0 % 12.1-15.4 H PLT (test code = 777-3) 238 See_Comment [Automated messa ge] The system which generated this result transmitted reference range: 150 - 328 10*3/?L. The reference range was not used to interpret this result as normal/abnormal. MPV (test code = 54000-6) 10.5 fL 9.8-13.0 NRBC/100 WBC (test code = 7646751336) 0.0 See_Comment [Automated [employer] ss[employer]] The system which generated this result transmitted reference range: 0.0 - 10.0 /100 WBCs. The reference range was not used to interpret this result as normal/abnormal. NRBC x10^3 (test code = 4644487966) See_Comment [Automated [employer]] The system which generated this result transmitted reference range: 10*3/?L. The reference range was not used to interpret this result as normal/abnormal. GRAN MAT (NEUT) % (test code = 770-8) 65.0 % IMM GRAN % (test code = 4832504668) 0.50 % LYMPH % (test code = 736-9) 23.1 % MONO % (test code = 5905-5) 7.6 % EOS % (test code = 713-8) 3.4 % BASO % (test code = 706-2) 0.4 % GRAN MAT x10^3(ANC) (test code = 9410727838) 6.22 10*3/uL 1.99-6.95 IMM GRAN x10^3 (test code = 1257668511) 0.05 10*3/uL 0.00-0.06 LYMPH x10^3 (test code = 731-0) 2.21 10*3/uL 1.09-3.23 MONO x10^3 (test code = 742-7) 0.73 10*3/uL 0.36-1.02 EOS x10^3 (test code = 711-2) 0.33 10*3/uL 0.06-0.53 BASO x10^3 (test code = 704-7) 0.04 10*3/uL 0.01-0.09 Lab Interpretation (test code = 05283-9) [facility]23-[facility]-20 03:49:52* Test Item Value Reference Range Interpretation Comme nts HGB A1C (test code = 4548-4) 8.2 % 4.0-5.7 H ALCIDES (test code = ALCIDES) Reference RangesNormal: <5.7%Prediabetes: 5.7 - 6.4%Diabetes: > 6.5% Lab Interpretation (test code = 40081-1) [facility]normal [facility]2023-01-20 03:49:52* Test Item Value Reference Range Interpretation Comme nts HGB A1C (test code = 4548-4) 8.2 % 4.0-5.7 H ALCIDES (test code = ALCIDES) Reference RangesNormal: <5.7%Prediabetes: 5.7 - 6.4%Diabetes: > 6.5% Lab Interpretation (test code = 84103-6) [facility]normal [facility] [id number] 21:18:27* Test Item Value Reference Range Interpretation Comme nts NT-proBNP (test code = 5279360281) 2380 pg/mL <=125 H ALCIDES (test code = ALCIDES) Biotin has been reported to cause a negative bias, interpret results relative to patient's use of biotin. Lab Interpretation (test code = 10456-2) Abnormal [facility] [id number] 21:18:27* Test Item Value Reference Range Interpretation Comme nts NT-proBNP (test code = 7689457081) 2380 pg/mL <=125 H ALCIDES (test code = ALCIDES) Biotin has been reported to cause a negative bias, interpret results relative to patient's use of biotin. Lab Interpretation (test code = 16722-5) [facility] (NA, K, CL, CO2, GLUCOSE, BUN, CREATININE, CA)2023-01-19 19:12:00* Test Item Value Reference Range Interpretation Comme nts NA (test code = 3997962920) 140 mmol/L 135-145 K (test code = 5109346964) 3.9 mmol/L 3.5-5.0 CL (test code = 4445263606) 106 mmol/L 98-108 CO2 TOTAL (test code = 2245665892) 26 mmol/L 23-31 AGAP (test code = 4602129566) 8 2-16 BUN (test code = 0350753674) 12 mg/dL 7-23 GLUCOSE (test code = 5083520979) 97 mg/dL 70-110 CREATININE (test code = 2398992606) 1.11 mg/dL 0.60-1.25 CALCIUM (test code = 2269782528) 8.8 mg/dL 8.6-10.6 eGFR (test code = 0095509434) 68.5 mL/min/1.73m2 ALCIDES (test code = ALCIDES) Association of [...] or urine or abnormalities in imaging tests). [facility] (08740)(TOTAL CHOLESTEROL, TRIGLYCERIDES, HDL)2023-01-19 19:12:00* Test Item Value Reference Range Interpretation Comme nts CHOL (test code = 5635661151) 131 mg/dL 120-200 HDL (test code = 3659222193) 30 mg/dL >=40 L HDLC RATIO (test code = 0989745668) 4.4 <=5.0 TRIG (test code = 0872040657) 71 mg/dL 30-170 LDL CHOL (test code = 39612-2) 87 mg/dL <=160 VLDL (test code = 5231346525) 14 mg/dL 5-60 Lab Interpretation (test cod e = 61553-2) [facility]normal [facility] (NA, K, CL, CO2, GLUCOSE, BUN, CREATININE, CA)2023-01-19 19:12:00* Test Item Value Reference Range Interpretation Comme nts NA (test code = 0320105494) 140 mmol/L 135-145 K (test code = 4318433661) 3.9 mmol/L 3.5-5.0 CL (test code = 6777896154) 106 mmol/L 98-108 CO2 TOTAL (test code = 7924000261) 26 mmol/L 23-31 AGAP (test code = 1866728027) 8 2-16 BUN (test code = 4006196149) 12 mg/dL 7-23 GLUCOSE (test code = 1012119825) 97 mg/dL 70-110 CREATININE (test code = 0274421106) 1.11 mg/dL 0.60-1.25 CALCIUM (test code = 2612271582) 8.8 mg/dL 8.6-10.6 eGFR (test code = 0669341692) 68.5 mL/min/1.73m2 ALCIDES (test code = ALCIDES) Association of [...] or urine or abnormalities in imaging tests). [facility] (23379)(TOTAL CHOLESTEROL, TRIGLYCERIDES, HDL)2023-01-19 19:12:00* Test Item Value Reference Range Interpretation Comme nts CHOL (test code = 5743025670) 131 mg/dL 120-200 HDL (test code = 9915275281) 30 mg/dL >=40 L HDLC RATIO (test code = 2953698985) 4.4 <=5.0 TRIG (test code = 2849911702) 71 mg/dL 30-170 LDL CHOL (test code = 29845-7) 87 mg/dL <=160 VLDL (test code = 6737999661) 14 mg/dL 5-60 Lab Interpretation (test cod e = 13870-0) Abnormal [facility] / [id number] 19:07:04* Test Item Value Reference Range Interpretation Comme nts PROTIME PATIENT (test code = 5964-2) 13.5 See_Comment H [Automated [employer] The system which generated this result transmitted reference range: 10.1 - 12.6 Seconds. The reference range was not used to interpret this result as normal/abnormal. INR (test code = 6301-6) 1.2 Normal INR <1.1; Warfarin Therapeutic range 2.0 to 3.0 or 2.5 to 3.5, depending upon the indications. Lab Interpretation (test code = 02707-1) Abnormal [facility] / [id number] 19:07:04* Test Item Value Reference Range Interpretation Comme nts PROTIME PATIENT (test code = 5964-2) 13.5 See_Comment H [Automated messa ge] The system which generated this result transmitted reference range: 10.1 - 12.6 Seconds. The reference range was not used to interpret this result as normal/abnormal. INR (test code = 6301-6) 1.2 Normal INR <1.1; Warfarin Therapeutic range 2.0 to 3.0 or 2.5 to 3.5, depending upon the indications. Lab Interpretation (test code = 34512-1) Abnormal [facility] WITH [id number] 18:51:36* Test Item Value Reference Range Interpretation Comme nts WBC (test code = 6690-2) 8.93 See_Comment [Automated messa ge] The system which generated this result transmitted reference range: 4.20 - 10.70 10*3/?L. The reference range was not used to interpret this result as normal/abnormal. RBC (test code = 789-8) 4.76 See_Comment [Automated messa ge] The system which generated this result transmitted reference range: 4.26 - 5.52 10*6/?L. The reference range was not used to interpret this result as normal/abnormal. HGB (test code = 718-7) 12.3 g/dL 12.2-16.4 HCT (test code = 4544-3) 40.1 % 38.4-49.3 MCV (test code = 787-2) 84.2 fL 81.7-95.6 MCH (test code = 785-6) 25.8 pg 26.1-32.7 L MCHC (test code = 786-4) 30.7 g/dL 31.2-35.0 L RDW-SD (test code = 49869-9) 49.2 fL 38.5-51.6 RDW-CV (test code = 788-0) 15.9 % 12.1-15.4 H PLT (test code = 777-3) 215 See_Comment [Automated messa ge] The system which generated this result transmitted reference range: 150 - 328 10*3/?L. The reference range was not used to interpret this result as normal/abnormal. MPV (test code = 62526-6) 10.8 fL 9.8-13.0 NRBC/100 WBC (test code = 1933798219) 0.0 See_Comment [Automated me ssage] The system which generated this result transmitted reference range: 0.0 - 10.0 /100 WBCs. The reference range was not used to interpret this result as normal/abnormal. NRBC x10^3 (test code = 1528407690) See_Comment [Automated messa ge] The system which generated this result transmitted reference range: 10*3/?L. The reference range was not used to interpret this result as normal/abnormal. GRAN MAT (NEUT) % (test code = 770-8) 66.4 % IMM GRAN % (test code = 4881332513) 0.30 % LYMPH % (test code = 736-9) 22.2 % MONO % (test code = 5905-5) 7.8 % EOS % (test code = 713-8) 2.9 % BASO % (test code = 706-2) 0.4 % GRAN MAT x10^3(ANC) (test code = 7267299590) 5.92 10*3/uL 1.99-6.95 IMM GRAN x10^3 (test code = [id number]) 0.03 10*3/uL 0.00-0.06 LYMPH x10^3 (test code = 731-0) 1.98 10*3/uL 1.09-3.23 MONO x10^3 (test code = 742-7) 0.70 10*3/uL 0.36-1.02 EOS x10^3 (test code = 711-2) 0.26 10*3/uL 0.06-0.53 BASO x10^3 (test code = 704-7) 0.04 10*3/uL 0.01-0.09 Lab Interpretation (test code = 49384-9) Abnormal [facility] WITH [id number] 18:51:36* Test Item Value Reference Range Interpretation Comme nts WBC (test code = 6690-2) 8.93 See_Comment [Automated [employer]] The system which generated this result transmitted reference range: 4.20 - 10.70 10*3/?L. The reference range was not used to interpret this result as normal/abnormal. RBC (test code = 789-8) 4.76 See_Comment [Automated [employer]] The system which generated this result transmitted reference range: 4.26 - 5.52 10*6/?L. The reference range was not used to interpret this result as normal/abnormal. HGB (test code = 718-7) 12.3 g/dL 12.2-16.4 HCT (test code = 4544-3) 40.1 % 38.4-49.3 MCV (test code = 787-2) 84.2 fL 81.7-95.6 MCH (test code = 785-6) 25.8 pg 26.1-32.7 L MCHC (test code = 786-4) 30.7 g/dL 31.2-35.0 L RDW-SD (test code = 99309-5) 49.2 fL 38.5-51.6 RDW-CV (test code = 788-0) 15.9 % 12.1-15.4 H PLT (test code = 777-3) 215 See_Comment [Automated [employer]] The system which generated this result transmitted reference range: 150 - 328 10*3/?L. The reference range was not used to interpret this result as normal/abnormal. MPV (test code = 33497-9) 10.8 fL 9.8-13.0 NRBC/100 WBC (test code = 9939235827) 0.0 See_Comment [Automated [employer]] The system which generated this result transmitted reference range: 0.0 - 10.0 /100 WBCs. The reference range was not used to interpret this result as normal/abnormal. NRBC x10^3 (test code = 7629728095) See_Comment [Automated [employer]] The system which generated this result transmitted reference range: 10*3/?L. The reference range was not used to interpret this result as normal/abnormal. GRAN MAT (NEUT) % (test code = 770-8) 66.4 % IMM GRAN % (test code = 8245259228) 0.30 % LYMPH % (test code = 736-9) 22.2 % MONO % (test code = 5905-5) 7.8 % EOS % (test code = 713-8) 2.9 % BASO % (test code = 706-2) 0.4 % GRAN MAT x10^3(ANC) (test code = 3726562384) 5.92 10*3/uL 1.99-6.95 IMM GRAN x10^3 (test code = 1108385841) 0.03 10*3/uL 0.00-0.06 LYMPH x10^3 (test code = 731-0) 1.98 10*3/uL 1.09-3.23 MONO x10^3 (test code = 742-7) 0.70 10*3/uL 0.36-1.02 EOS x10^3 (test code = 711-2) 0.26 10*3/uL 0.06-0.53 BASO x10^3 (test code = 704-7) 0.04 10*3/uL 0.01-0.09 Lab Interpretation (test code = 08654-0) Abnormal [facility] History and Physical Notes Date/Time Note Provider Source 2023-07-06 11:21:13 LwrOAz8Si6+oKIPsM1x/ K4unL/Bq5XYyDoTbC8B 1dqOQF6KjIm/bghtj4Qr37zDz5305-64-55U31: 21:13 Interval H&P:I interviewed and examined the patient today. [...] History:Past Medical History: Diagnosis Date CAD in [place] artery Cardiomegaly CHF (congestive heart failure) Cholelithiasis [...] general anesthesiaR inguinal [place] [address]-2Xcjzrfd and physical lvuuUH7970914Nmik, [place]1.2.840.434752.1.13.104.2.7.2.8 11391PoqeMrpxtxgnBA4159-21-91D50:06:55H istory and physical noteTXT1.2.840.370565.1.13.104.2.7.2.72 7879|[id number] for patient wvkp21780-6Atsyrod and physical eehuEUWOY-VBGYUVJLIT-QTHGFSKQWYQKWXF[id number] UTNXUPGHAGTTZEVTLZE7056-98-33N22:06:551 .2.840.979684.1.72.3.15|1.2.840.109575. 1.13.104.2.7.2.727879_[id number] RAMON-SURGERY [facility] Notes Date/Time Note Provider Source 2023-07-17 16:11:16 8xU9nGDz3zZF7tWSqgZZ IyRE461mSBPF heS1DZ7FPmnh/uLS/p6nnXc2s6IX/Tbb 4572-73-77X42:11:16 Appointment rescheduled.Patient aware.Verbalized understanding and agreed. 49776-6Vuguyxlyf encounter EkltUN5536-58-93X81:11:38Telepho ne encounter NoteTXT1.2.840.567090.1.13.104.2 .7.2.032646|[id number] e for patient ttav56376-1MrllFQ793047822Vfylnj A Reyes [address]TX[address] 9534OSODMICFRQIOJNPONQFGHA6452-9 :11:381.2.840.644596.1.72 .3.15|1.2.840.153601.1.13.104.2. 7.2.727879_[id number] Gina Yusuf LVN [facility] 2023-07-17 15:31:32 nB1iWvpGkZDdu+9[facility] oQuCmWF8Ch28 ZmmOUFU2Jx5D8P9hB4GRS6ocF3crw2J4 3597-02-84G29:31:32 Patient may be rescheduled for follow up 6 to 8 weeks after ICD implantation. Please schedule follow [place] for [place] [address]-3Xqtniwscy encounter BazzCZ0782-16-54Y53:32:19Telepho ne encounter NoteTXT1.2.840.785912.1.13.104.2 .7.2.596987|[id number] for patient cjkf71419-0OlvqDGWWPZWMQN[address] OlwwEigwfojyiDgeoyeeatKFXF661745 0163DQLJKKRQKVLSORUPDAKBOQ0227-9 5:32:191.2.840.907482.1.72 .3.15|1.2.840.725917.1.13.104.2. 7.2.727879_[id number] [facility] 2023-07-17 13:46:23 bE3iP16VTvw46ZBvEPaH bihKral3Bygz bHCppY1ahs83P4mQI5T7poP796inzsRO 9697-01-80S46:46:23 Attempted to contact patient to offer an appointment in [place] for Dr. Solis. No answer so I left a voicemail. 41191-0Fvslytmpb encounter NiqtBZ7597-79-90M30:47:07Telepho ne encounter NoteTXT1.2.840.561707.1.13.104.2 .7.2.899958|[id number] e for patient dcbt08564-8NrhfWF582357436Hexpl [address]TX[address] 7098PQWGFWGFECFPGVGZHATCGK1282-7 3:47:071.2.840.597106.1.72 .3.15|1.2.840.279319.1.13.104.2. 7.2.727879_[id number] Kassandra Crain [facility] 2023-07-17 09:33:32 /Rtcvu3fjfidH74WzDks DSD8am6I1A0a 53lInMLhqNEfcuseiE0Xpqo7e4jU5Fwb 0302-32-10Z64:33:32 Lb Epstein is a 57 year old malePt is calling to verify the specific reason for the upcoming appt. He was seen 07/16 and her needs to know if this appt is necessary.Please f/uHome Work Phone Not on file. Future Appointments Provider Department Dept Phone 07/18/2023 10:00 AM Americo Cortés MD [facility] [phone] Recent Outpatient Visits Yesterday Mitral valve insufficiency, unspecified etiology [facility] [place] [address]-5Hyculmdla encounter KtmaGM1733-44-91X41:36:56Telepho ne encounter NoteTXT1.2.840.364073.1.13.104.2 .7.2.586223|[id number] e for patient uinf50924-6JmrhUU340682638Mkrxc [address] 1539KOYGCVIZUSFFVMTZUNLVNV5235-9 09:36:561.2.840.139769.1.72 .3.15|1.2.840.775279.1.13.104.2. 7.2.727879_[id number] Makayla Urena [facility] 2023-07-16 11:15:20 cB9jKbiHD8BDzxRmn/iU Q8vBhFoOGFzC fT9QqmVkSdr8sQEM+PCJ2wnPjvakP5RR 8650-25-82B64:15:20 Called pt to reschedule ICD insertion with dr cortés, due to hitting coverage max with [facility] insurance. Pt agreed to reschedule for 11/01 pending insurance approval and renewal. 55136-2Rskppudqq encounter NyloMG3714-26-51W91:20:53Telepho ne encounter NoteTXT1.2.840.337747.1.13.104.2 .7.2.342125|[id number] e for patient kcyh76042-7AcluFT132303168Gldud [address] LaamXsjmmqfdcAsazwqanlTROD910165 0906FZZPQJAIYGGDEZNGBSAHLA3293-2 1:20:531.2.840.714056.1.72 .3.15|1.2.840.303144.1.13.104.2. 7.2.727879_[id number] Cherry Medrano [facility] 2023-07-06 12:55:30 /8POj8zZPzWk/yHXKYad tcQxAlskgcBk Z6BT72quio34NEW+QbS392DYcS+hWwnH 2072-58-68I65:55:30 CALLED TO UPDATE PT'S S.O.ALESSANDRO. RANG NO ANSWER, DID NOT LVM. AT 1258 81295-9Urfdf DdhmZT0162-13-52Y22:50:53Nurse NoteTXT1.2.840.944795.1.13.104.2 .7.2.692839|[id number] e for patient qowp52245-3LuzgAC368323538Nlpnur C Damian RN[address] FaziDulamuiwxQvicyxbzxKRBU935327 2955CPNTKPUKILXHJPSMJIQPSZ4867-0 5:50:531.2.840.692786.1.72 .3.15|1.2.840.193031.1.13.104.2. 7.2.727879_[id number] Jesse Reyes RN [facility] 2023-07-06 12:54:00 Vh4inj5pCEdG5HU/tkON y88M33FXYVU/ PPP3xcFuabFVd6fBduSSoguxlP6WW6rL 9154-93-49G59:54:00 BRIEF OPERATIVE NOTEDate of Surgery: 07/06/2023Surgeon(s) and Role: * Annita Grijalva MD - Primary * Waqar Infante MD - Resident - Assisting * Liu Swift MD - Resident - AssistingPre-Op Diagnosis:Unilateral inguinal hernia without obstruction or gangrene, recurrence not specified [K40.90]Post-Op Diagnosis Codes: * Unilateral inguinal hernia without obstruction or gangrene, recurrence not specified [K40.90]Procedures:Procedure(s) (LRB):INGUINAL HERNIORRHAPHY (Right)CPT: 00011,99791Zwk Complications Encounters: None Estimated Blood Loss: 10 ccSpecimens Removed: * No specimens in log *Implant Name Type Inv. Item Serial No. Guest Services Attendant Lot No. LRB No. Used Action MESH ETH[employer] PROLENE 2.4 X 5.4 PRESHAPED #PMLK - SN/A MESH MESH [employer] PROLENE 2.4 X 5.4 PRESHAPED #PMLK N/A [employer] QGBEBR Right 1 Implanted Patient's Condition: StableFindings: Direct and indirect herniaAny other important information: Discharge with follow up in 2 weeksPlease see dictated operative report for additional detail. 69700-4Hjuedxlb ywpbBC4574-33-30P12:50:46Progres s noteTXT1.2.840.220155.1.13.104.2 .7.2.297374|[id number] e for patient epht10357-9TxvrHKIGMQEIBR[address] EhqqXkuksygmqPuxkqemkhWAZK007541 0996QIXWCCLITJPRHQEHRPQDSY6972-9 6:50:461.2.840.344722.1.72 .3.15|1.2.840.030728.1.13.104.2. 7.2.727879_[id number] [facility] 2023-06-28 15:21:01 OW0r16dyQpX7b0vAZqew 7lFn1QV1l5+6 lUqVFTQhPTj/mXUZLLd6Rg6Rx0BSeawg 4713-37-28K87:21:01 Images from the original note were not included.Your procedure is at [facility] on 07/06/23. The address is [address] [place] [address], [facility]. [facility] nursing staff will call you the workday before your procedure to let you know what time to arrive.On the day of your procedure, please go inside that door and check in at the desk.Please note: You may not travel home alone and that includes in a taxi or by bus. We must speak to your Responsible Adult (who will be picking you up) the morning of your procedure, before the start of your procedure. This person must be an adult over the age of 18 years of age. Do not eat any solid food after midnight the night before surgery. You may have sips of clear liquids such as water, gatorade, and sprite up until two hours before your scheduled procedure.You may take your medications with a sip of water as directed by physician. Anticoagulants will be per physician guidance. Medication Note(s)/Instructions: Pt instructed to hold Farxiga 3 days prior to procedure. ASA 7 days prior to procedure and hold Furosemide the morning of the procedure. Also to take Metoprolol the morning of the procedure. Pending screening, we may test for COVID. If a patient tests positive, their cases are cancelled and/or rescheduled. COVID SCREENING NOTE: Denies COVID symptoms, no testing required.Additional requests, questions, concerns:Patient verbalized understanding of pre-op instructions and voiced no further questions at this time. 77221-8Vmtml TfkrIX6877-20-80S71:26:47Nurse NoteTXT1.2.840.922646.1.13.104.2 .7.2.576322|[id number] for patient zzsz86612-5IrxrEV020499249Cfx M Gallardo RN[address] MugtIsmkigxvrMnaxswvgaNXGQ905609 8615AOOFWMFBLCITYJCFZOVHEN8910-2 8-03T15:26:471.2.840.003200.1.72 .3.15|1.2.840.409083.1.13.104.2. 7.2.727879_[id number] Evelyn Saleh RN [facility] 2023-06-26 08:45:26 hwMboPqHhCNyKDEHzylk xIiXy+YWMpEY D3FstbtNoOzfftIPbPrjazPDNSbN0qlO 4131-54-92V72:45:26 Thank you, Dr. Mendoza. 60256-3Fvfsabrvf encounter KhroAQ6532-70-07J15:45:51Telepho ne encounter NoteTXT1.2.840.310710.1.13.104.2 .7.2.958468|0132000732FUWbbfrena e for patient ukjs62949-1PtovWI706347414Sfhjh [address] 0637TASQTSIZFMKTMDIOAWGXQZ0296-6 08:45:511.2.840.984937.1.72 .3.15|1.2.840.937481.1.13.104.2. 7.2.727879_[id number] [facility] 2023-06-25 20:26:02 IZH0R3BxoQvensudFxS2 3UHffRd4TFbi MPIKvCISg7cgYoVztMeF7L5Ah8eYAwCO 6577-58-63T18:26:02 Those referrals do not affect surgery clearance. Proceed with surgery. 11772-5Yydvwcmqr encounter VpmnHE7530-16-13E04:26:29Telepho ne encounter NoteTXT1.2.840.827623.1.13.104.2 .7.2.362885|8410932565VIUhmiwkck e for patient vogq71816-5ZhqqCNPTIVSWJZ[address]vest[place] 6559NVQDIRGUSQNVTNIHVCQCAN9329-1 06-25T20:26:291.2.840.541793.1.72 .3.15|1.2.840.342242.1.13.104.2. 7.2.727879_[id number] [facility] 2023-06-25 13:26:22 CIcDFrREJN8LLA/2ZWRe Ke00rC6AU1ru cmgYhKl+sO/qOY86SKa8lv1bJr4qkmFw 6970-63-60C99:26:22 Images from the original note were not included.The following patient is scheduled for right inguinal hernia repair with at [facility] Surgery Department. The procedure is currently scheduled on 07/06/23 and requires cardiac clearance prior to the procedure.Anesthesia requesting clarification regarding cardiac clearance.Dr. Mendoza note on 05/21/23 recommended repeat echo and if EF was found to be <35%, refer to EP for defibrillator. (see note)Patient had repeat echo 06/07/23, EF found to be 15-20%. Per Dr. Mendoza recommendations, patient has appointment's scheduled with both EP and interventional on 07/18/23, and 07/16/23 respectively. (see below) Per Dr. Mendoza addendum on 06/08/23, patient is cleared for surgery with moderate risk. (see below)Clarification to proceed with case on 07/06/23 with EF 15-20% vs waiting for EP and interventional appointments? Thank you, Kartik Alexander DNP, [facility]ADepartment of AnesthesiologyThank you,[facility] Chavez Pre-op Screening Department 52149-5Hepqtvqqh encounter IilbZV4658-53-80Y71:38:29Telepho ne encounter NoteTXT1.2.840.917763.1.13.104.2 .7.2.025094|[id number] e for patient nzhv29365-6KcinIYLDHDKRCR[address] TjceTatzhzpdvMlckuhmqqEWRQ358363 8734KIBFHFZLSRCDQIIOFMHVYT9094-5 3:38:291.2.840.111203.1.72 .3.15|1.2.840.286335.1.13.104.2. 7.2.727879_[id number] [facility]
[2024-02-10] MEDS ORDERED: FUROSEMIDE 40 MG/4 ML VIAL ONE ×2 (00:38→04:50)
[2024-02-10] MEDS ORDERED: ONDANSETRON 4 MG/2 ML VIAL ONE (00:38)
[2024-02-10] MEDS ORDERED: FENTANYL CITR 100 MCG/2 ML ONE ×2 (00:38→04:51)
[2024-02-10 00:42] LABS: Absolute Basophils 0.1 K/uL (0-0.5); Absolute Eosinophils 0.1 K/uL (0-0.5); Absolute Lymphocytes (CBC) 1.3 K/uL (0.7-4.9); Absolute Monocytes 0.8 K/uL (0.1-1.3); Absolute Neutrophil 8.1 K/uL (1.8-8.0); Basophils % 1.4 % (0-1.3); Eosinophils % 0.8 % (0-4.4); Hematocrit 37.3 % (39.6-49.0); Hemoglobin 11.8 g/dL (13.6-17.9); Lymphocytes % 12.2 % (15.3-44.8); MCH 23.5 pg (27.0-35.0); MCHC 31.7 g/dL (32.0-36.0); MCV 74.3 fL (80-100); MPV 8.4 fL (7.6-11.3); Monocytes % 7.4 % (3.3-12.3); Neutrophils % 78.2 % (41.7-73.7); Platelets 260 thou/uL (152-406); RBC Red Blood Cell Count 5.03 M/uL (4.33-5.43); Red Cell Distribution Width 22.2 % (12.1-15.2)
[2024-02-10 01:18] LABS: Anion Gap 8.4 mEq/L (5.0-15.0); Magnesium 2.4 mg/dL (1.6-2.4); Potassium 3.4 mEq/L (3.5-5.1); Troponin High Sensitivity 39.9 pg/mL (<58.9)
[2024-02-10] MEDS ORDERED: AMIODARONE HCL 200 MG TAB ONE (01:28)
--- NOTE | 2024-02-10 04:38 | ER ---
Nurse's Notes [facility] Name: Lb Epstein Age: 58 yrs Sex: Male : 1965 Arrival Date: 02/10/2024 Time: 00:05 Bed 4 Private MD: Diagnosis: Acute on chronic diastolic (congestive) heart failure;Chest pain on breathing Presentation: 02/09 00:07 Chief complaint: EMS states: Pt reports having CHF, was taking Mucinex D and started jb4 coughing. Pt reports feeling a pop in his left ribs and thinks he snapped a rib. Coronavirus screen: At this time, the client does not indicate any symptoms associated with coronavirus-19. Ebola Screen: No symptoms or risks identified at this time. Initial Sepsis Screen: Does the patient meet any 2 criteria? HR > 90 bpm. Yes Does the patient have a suspected source of infection? No. Patient's initial sepsis screen is negative. Risk Assessment: Do you want to hurt yourself or someone else? Patient reports no desire to harm self or others. Onset of symptoms was February 10, 2024. Transition of care: patient was not received from another setting of care. 00:07 Method Of Arrival: EMS: [facility] jb4 00:07 Acuity: JAVON 3 jb4 Triage Assessment: 00:09 General: Appears in no apparent distress. uncomfortable, Behavior is calm, cooperative, jb4 appropriate for age. Pain: Complains of pain in left ribs Pain does not radiate. Pain currently is 10 out of 10 on a pain scale. EENT: No signs and/or symptoms were reported regarding the EENT system. Neuro: Level of Consciousness is awake, alert, obeys commands, Oriented to person, place, time, situation. Cardiovascular: Patient's skin is warm and dry. Respiratory: Airway is patent Respiratory effort is even, unlabored, Respiratory pattern is regular, symmetrical. GI: No signs and/or symptoms were reported involving the gastrointestinal system. : No signs and/or symptoms were reported regarding the genitourinary system. Derm: Skin is intact, Skin is pink, warm \T\ dry. Musculoskeletal: Circulation, motion, and sensation intact. Range of motion: intact in all extremities. Historical: - Allergies: 00:09 Morphine; headaches; jb4 - PMHx: 00:09 Hypertensive disorder; Congestive heart failure; MA; Diabetes mellitus; jb4 - PSHx: 00:09 Cardiac stents x2; jb4 - Immunization history:: Adult Immunizations up to date. - Social history:: Smoking status: Patient reports the use of cigarette tobacco products, Daily. Screenin:11 [facility] ED Fall Risk Assessment (Adult) History of falling in the last 3 months, jb4 including since admission No falls in past 3 months (0 pts) Confusion or Disorientation No (0 pts) Intoxicated or Sedated No (0 pts) Impaired Gait No (0 pts) Mobility Assist Device Used No (0 pt) Altered Elimination No (0 pt) Score/Fall Risk Level 0 - 2 = Low Risk Oriented to surroundings, Maintained a safe environment. Abuse screen: Denies threats or abuse. Nutritional screening: No deficits noted. Tuberculosis screening: No symptoms or risk factors identified. Assessment: 00:09 Reassessment: see triage note. jb4 01:04 Reassessment: Patient appears in no apparent distress at this time. Patient and/or jb4 family updated on plan of care and expected duration. Pain level reassessed. Patient is alert, oriented x 3, equal unlabored respirations, skin warm/dry/pink. 01:42 Reassessment: Patient appears in no apparent distress at this time. Patient and/or jb4 family updated on plan of care and expected duration. Pain level reassessed. Patient is alert, oriented x 3, equal unlabored respirations, skin warm/dry/pink. 02:45 Reassessment: Patient appears in no apparent distress at this time. Patient and/or jb4 family updated on plan of care and expected duration. Pain level reassessed. Patient is alert, oriented x 3, equal unlabored respirations, skin warm/dry/pink. 03:45 Reassessment: Patient appears in no apparent distress at this time. Patient and/or jb4 family updated on plan of care and expected duration. Pain level reassessed. Patient is alert, oriented x 3, equal unlabored respirations, skin warm/dry/pink. 04:26 Reassessment: Patient appears in no apparent distress at this time. Patient and/or jb4 family updated on plan of care and expected duration. Pain level reassessed. Patient is alert, oriented x 3, equal unlabored respirations, skin warm/dry/pink. 05:30 Reassessment: Patient appears in no apparent distress at this time. Patient and/or jb4 family updated on plan of care and expected duration. Pain level reassessed. Patient is alert, oriented x 3, equal unlabored respirations, skin warm/dry/pink. 06:30 Reassessment: Patient appears in no apparent distress at this time. Patient and/or jb4 family updated on plan of care and expected duration. Pain level reassessed. Patient is alert, oriented x 3, equal unlabored respirations, skin warm/dry/pink. Vital Signs: 00:07 BP 126 / 90; Pulse 111; Resp 18; Temp 97.8; Pulse Ox 97% on R/A; Weight 99.79 kg (R); jb4 Height 6 ft. 1 in. ; Pain 10/10; 01:04 BP 112 / 93; Pulse 113; Resp 19; Pulse Ox 98% on 2 lpm NC; jb4 01:42 BP 120 / 90; Pulse 115; Resp 21; Pulse Ox 97% on 2 lpm NC; jb4 02:45 BP 121 / 106; Pulse 111; Resp 24; Pulse Ox 99% on 2 lpm NC; jb4 04:00 BP 122 / 95; Pulse 110; Resp 21; Pulse Ox 100% on 2 lpm NC; jb4 05:00 BP 116 / 88; Pulse 109; Resp 22; Pulse Ox 100% on 2 lpm NC; jb4 06:00 BP 111 / 87; Pulse 106; Resp 22; Pulse Ox 91% on R/A; jb4 07:00 BP 104 / 89; Pulse 107; Resp 20; Pulse Ox 97% on 2 lpm NC; jb4 00:07 Body Mass Index 29.03 (99.79 kg, 185.42 cm) jb4 00:07 Pain Scale: Adult jb4 ED Course: 00:06 Patient arrived in ED. ty 00:07 Srinivas Vela, GABBIE is Primary Nurse. jb4 00:07 Marguerite Koroma FNP-C is [facility]. kb 00:07 Francis Alfaro MD is Attending Physician. kb 00:09 Triage completed. jb4 00:09 Arm band placed on right wrist. jb4 00:11 Patient has correct armband on for positive identification. Bed in low position. Call jb4 light in reach. Side rails up X 1. Client placed on continuous cardiac and pulse oximetry monitoring. NIBP monitoring applied. media monitor on. 00:33 Basic Metabolic Panel Sent. jb4 00:33 CBC with Diff Sent. jb4 00:33 Magnesium Sent. 4 00:33 NT PRO-BNP Sent. 4 00:33 Troponin HS Sent. jb4 00:34 Initial lab(s) drawn, by ED staff, sent to lab. EKG done, by ED staff, reviewed by elie WYLIE. Inserted saline lock: 18 gauge in left hand, using aseptic technique. Blood collected. Missed attempt(s): 22 gauge in right hand. Bleeding controlled, band aid applied, catheter tip intact. 00:34 Inserted saline lock: 18 gauge in left hand, using aseptic technique. Blood collected. km 00:45 Radiology exam delayed due to lab results not completed at this time. (BUN/Creatinine). eh4 00:56 Inserted saline lock: 22 gauge in left antecubital area, using aseptic technique. jb4 01:07 XRAY Chest (1 view) In Process Unspecified. EDMS 02:18 CT Chest, Abdomen, Pelvis - W/Contrast In Process Unspecified. EDMS 04:36 Kala Spain MD is Hospitalizing Provider. sp4 07:20 Primary Nurse role handed off by Srinivas Vela, RN bp 07:20 Kartik Benítez, GABBIE is Primary Nurse. bp 17:26 No provider procedures requiring assistance completed. Patient admitted, IV remains in bp place. Administered Medications: 00:48 Drug: fentaNYL (PF) IVP 25 mcg IVP once Route: IVP; Site: left hand; jb4 00:48 Drug: Ondansetron IVP 4 mg IVP once; over 2 minutes Route: IVP; Site: left hand; jb4 00:48 Drug: Furosemide IVP 40 mg IVP once; give over 2 minutes Route: IVP; Site: left hand; jb4 01:42 Drug: amiodarone PO 1600 mg PO once {Note: verified order with ER physician prior to jb4 administration.} Route: PO; 05:01 Not Given (Physician Discretion): fentanyl (pf)100 mcg IVP once sp4 05:10 Drug: Furosemide IVP 40 mg IVP once; give over 2 minutes Route: IVP; Site: left hand; cm10 05:10 Drug: fentaNYL (PF) IVP 50 mcg IVP once Route: IVP; Site: left hand; cm10 05:28 Drug: Nicotine Transdermal Patch 21 mg/24 hr 1 patches Transdermal once Route: cm10 Transdermal; Site: affected area; Medication: 00:11 VIS not applicable for this client. jb4 Outcome: 04:37 Decision to Hospitalize by Provider. sp4 17:27 Admitted to ER Hold. Please see [facility] for further documentation. bp 17:27 Condition: stable 17:27 Instructed on the need for admit, 18:26 Patient left the ED. aa5 Signatures: Dispatcher [employer] EDMS Marguerite Koroma, BEHAVIOUR SUPPORT TEACHER-C BEHAVIOUR SUPPORT TEACHER-Dahiana Alvarez, RN RN aa5 Srinivas Vela RN RN jb4 Kartik Benítez RN RN Bernardo Mcclure 4 Francis Alfaro MD MD sp4 Liseth Lorenzo RN RN cm10 Jessica Mills kmf Vikram Colbert Corrections: (The following items were deleted from the chart) 00:45 00:44 Inserted saline lock: 18 gauge in left hand, using aseptic technique. Blood kmf collected. kmf
--- NOTE | 2024-02-10 04:38 | EDPHYS ---
Physician Documentation [facility] Name: Lb Epstein Age: 58 yrs Sex: Male : 1965 Arrival Date: 02/10/2024 Time: 00:05 Bed 4 Private MD: ED Physician Francis Alfaro HPI: 02/09 00:17 This 58 yrs old Male presents to ER via EMS with complaints of left chest pain. kb 00:17 Pt is a 58 year old male who presents for left lateral chest pain that started after kb rolling over when he woke up from a nap. States he has had a cough for 1-2 weeks. Denies fever. Also reports swelling, states his lasix is making him urinate more but isn't taking the fluid off. Historical: - Allergies: 00:09 Morphine; headaches; jb4 - PMHx: 00:09 Hypertensive disorder; Congestive heart failure; [place]; Diabetes mellitus; jb4 - PSHx: 00:09 Cardiac stents x2; jb4 - Immunization history:: Adult Immunizations up to date. - Social history:: Smoking status: Patient reports the use of cigarette tobacco products, Daily. ROS: 00:15 Constitutional: As per HPI kb Exam: 00:15 Constitutional: This is a well developed, well nourished patient who is awake, alert, kb and in no acute distress. Head/Face: Normocephalic, atraumatic. ENT: Moist Mucous membranes Respiratory: Respirations even and unlabored. No increased work of breathing. Talking in full sentences Skin: Warm, dry with normal turgor. Normal color. MS/ Extremity: Pulses equal, no cyanosis. Neurovascular intact. Full, normal range of motion. Neuro: Awake and alert, GCS 15, oriented to person, place, time, and situation. Moves all extremities. Normal gait. 00:15 Chest/axilla: Inspection: normal, Palpation: tenderness, that is moderate, of the left lateral anterior chest, that totally reproduces the patient's complaints, 00:15 Cardiovascular: Rate: tachycardic, Edema: 2+ pitting edema to bilateral lower extremities and abd, Vital Signs: 00:07 BP 126 / 90; Pulse 111; Resp 18; Temp 97.8; Pulse Ox 97% on R/A; Weight 99.79 kg (R); jb4 Height 6 ft. 1 in. ; Pain 10/10; 01:04 BP 112 / 93; Pulse 113; Resp 19; Pulse Ox 98% on 2 lpm NC; jb4 01:42 BP 120 / 90; Pulse 115; Resp 21; Pulse Ox 97% on 2 lpm NC; jb4 02:45 BP 121 / 106; Pulse 111; Resp 24; Pulse Ox 99% on 2 lpm NC; jb4 04:00 BP 122 / 95; Pulse 110; Resp 21; Pulse Ox 100% on 2 lpm NC; jb4 05:00 BP 116 / 88; Pulse 109; Resp 22; Pulse Ox 100% on 2 lpm NC; jb4 06:00 BP 111 / 87; Pulse 106; Resp 22; Pulse Ox 91% on R/A; jb4 07:00 BP 104 / 89; Pulse 107; Resp 20; Pulse Ox 97% on 2 lpm NC; jb4 00:07 Body Mass Index 29.03 (99.79 kg, 185.42 cm) jb4 00:07 Pain Scale: Adult jb4 MDM: 00:07 Patient medically screened. kb 00:16 Differential diagnosis: abnormal EKG, acute myocardial infarction, coronary artery kb disease congestive heart failure pneumothorax, rib fracture. Data reviewed: vital signs, nurses notes. Historians other than the Patient: EMS: [facility]. 00:39 Transition of care: After a detail discussion of the patient's case, care is kb transferred to Francis Alfaro MD. 04:21 Differential Diagnosis altered mental status, sepsis, flu. ED course: EXAM DESCRIPTION: sp4 Chest Single View CLINICAL HISTORY: 58 years Male CHEST PAIN COMPARISON: October 08, 2023 TECHNIQUE: AP view of the skull is obtained. FINDINGS: Cardiac silhouette is enlarged. Central vessels are moderately increased. No pleural effusion on the right. Suspected small layering pleural effusion and left area airspace opacities lower lungs bilaterally left greater than right. No pneumothorax. IMPRESSION: Enlarged heart with moderate central congestion. Atelectatic change versus infiltrate lower lungs bilaterally left greater than right. . 04:22 ED course: MPRESSION: Small trace bilateral pleural effusions with very minimal sp4 compressive atelectatic changes posterior CP angles. Minimal haziness perhaps suggesting air trapping and/or interstitial pulmonary edema. Moderate cardiomegaly with minimal coronary artery calcifications. Cholelithiasis. Mild fatty infiltration of the liver. Small trace of ascites. Minimal haziness within the skin/subcutaneous tissue corresponding to edema/early anasarca. Electronically signed by: Aman Chester MD 02/10/2024 02:56 AM. 02/09 00:12 Order name: Basic Metabolic Panel; Complete Time: 04:24 kb 02/09 00:12 Order name: CBC with Diff kb 02/09 00:12 Order name: Magnesium; Complete Time: 04:24 kb 02/09 00:12 Order name: NT PRO-BNP; Complete Time: 04:24 kb 02/09 00:12 Order name: Troponin HS; Complete Time: 04:24 kb 02/09 04:40 Order name: Urine Drug Screen; Complete Time: 17:03 sp4 02/09 12:53 Order name: Protime (+INR); Complete Time: 17:03 EDMS 02/09 12:53 Order name: PTT, Activated Partial Thromb; Complete Time: 17:03 EDMS 02/09 13:14 Order name: Troponin High Sensitivity; Complete Time: 17:03 EDMS 02/09 13:14 Order name: C-Reactive Protein; Complete Time: 17:03 EDMS 02/09 13:28 Order name: Comprehensive Metabolic Panel; Complete Time: 17:03 EDMS 02/09 13:28 Order name: Magnesium; Complete Time: 17:03 EDMS 02/09 00:12 Order name: XRAY Chest (1 view) kb 02/09 00:39 Order name: CT Chest, Abdomen, Pelvis - W/Contrast kb 02/09 00:12 Order name: EKG; Complete Time: 00:13 kb 02/09 04:50 Order name: CONS Physician Consult EDMS 02/09 00:12 Order name: Cardiac monitoring; Complete Time: 00:22 kb 02/09 00:12 Order name: EKG - Nurse/Tech; Complete Time: 00:33 kb 02/09 00:12 Order name: IV Saline Lock; Complete Time: 00:33 kb 02/09 00:12 Order name: Labs collected and sent; Complete Time: 00:33 kb 02/09 00:12 Order name: O2 Per Protocol; Complete Time: 00:22 kb 02/09 00:12 Order name: O2 Sat Monitoring; Complete Time: 00:22 kb Administered Medications: 00:48 Drug: fentaNYL (PF) IVP 25 mcg IVP once Route: IVP; Site: left hand; jb4 00:48 Drug: Ondansetron IVP 4 mg IVP once; over 2 minutes Route: IVP; Site: left hand; jb4 00:48 Drug: Furosemide IVP 40 mg IVP once; give over 2 minutes Route: IVP; Site: left hand; jb4 01:42 Drug: amiodarone PO 1600 mg PO once {Note: verified order with ER physician prior to jb4 administration.} Route: PO; 05:01 Not Given (Physician Discretion): fentanyl (pf)100 mcg IVP once sp4 05:10 Drug: Furosemide IVP 40 mg IVP once; give over 2 minutes Route: IVP; Site: left hand; cm10 05:10 Drug: fentaNYL (PF) IVP 50 mcg IVP once Route: IVP; Site: left hand; cm10 05:28 Drug: Nicotine Transdermal Patch 21 mg/24 hr 1 patches Transdermal once Route: cm10 Transdermal; Site: affected area; Disposition: 04:35 Co-signature as Attending Physician, Francis Alfaro MD I agree with the assessment sp4 and plan of care. I reviewed the patient's care provided by Advanced Practice Provider \T\ agree w/ the diagnosis \T\ care plan. I personally saw the pt \T\ performed a substantive portion of the visit, incldng all aspects of the (History/Exam/Medical Decision Making). Disposition Summary: 02/10/24 04:37 Hospitalization Ordered Notes: Hospitalization Status: Inpatient Admission sp4 Provider: Kala Spain spAlisha Condition: Stable sp4 Problem: new sp4 Symptoms: have improved sp4 Bed/Room Type: Standard sp4 Location: Telemetry/MedSurg (Inpatient)(02/10/24 16:15) ds4 Room Assignment: 415(02/10/24 16:15) ds4 Diagnosis - Acute on chronic diastolic (congestive) heart failure sp4 - Chest pain on breathing sp4 Forms: - Medication Reconciliation Form sp4 - SBAR form sp4 - Leadership Thank You Letter sp4 Signatures: Dispatcher [employer] Marguerite Blackwell FNP-C FNP-Nikolas Banegas ds4 Sophia Newman RN RN cg Bryson, James, RN RN jb4 Potepalov Francis, MD MD sp4 Liseth Lorenzo RN RN cm10 Corrections: (The following items were deleted from the chart) 01:07 00:13 Ribs Left+RAD.RAD.BRZ ordered. EDMS EDMS 04:52 04:37 Telemetry/MedSurg (Inpatient) sp4 cg 04:52 04:37 sp4 cg 16:15 04:52 [facility] ER HOLD cg ds4 16:15 04:52 ERHOLD- cg ds4
--- NOTE | 2024-02-10 04:46 | P.HP ---
Certification for Inpatient Patient admitted to: Inpatient Practitioner: I am a practitioner with admitting privileges, knowledge of patient current condition, hospital course, and medical plan of care. Services: Services provided to patient in accordance with Admission requirements found in Title 42 Section 412.3 of the Code of Federal Regulations Patient History Date of Service: 02/10/24 Reason for admission: Heart failure History of Present Illness: 58-year-old male with a past medical history of HFrEF 25%, hypertension, hyperlipidemia, CAD, OR, presented to the emergency room with chest pain, shortness of breath. Allergies No Known Allergies Allergy (Verified 12/05/22 19:56) Home Medications: Aspirin [Aspirin EC 81 MG] 81 mg PO DAILY #30 tab 12/06/22 Atorvastatin Calcium [Lipitor] 40 mg PO BEDTIME #30 tab 12/06/22 Amiloride HCl 5 mg PO DAILY #30 tab 12/12/23 Atorvastatin Calcium 40 mg PO DAILY #30 tab 12/12/23 Metformin HCl [Glucophage*] 500 mg PO BIDWM #60 tab 12/12/23 Midodrine HCl 5 mg PO TID #90 tab 12/12/23 Torsemide [Demadex*] 40 mg PO DAILY #60 tab 12/12/23 - Past Medical/Surgical History Diabetic: No -: CAD/OR -: Hypertension -: Systolic CHF -: CKD II (Dr. Blankenship/ Dr. Linn) -: Stents Psychosocial/ Personal History: Patient is homeless. - Social History Alcohol use: No CD- Drugs: No Caffeine use: Yes Review of Systems Per HPI Physical Examination - Physical Exam General: Alert, In no apparent distress, Mild distress HEENT: Atraumatic, Normocephalic Neck: Supple, JVD not distended Respiratory: Normal air movement, Crackles/rales Cardiovascular: Regular rate/rhythm, Normal S1 S2 Capillary refill: <2 Seconds Gastrointestinal: Normal bowel sounds, Hypoactive Musculoskeletal: No clubbing, No swelling Integumentary: Other (Bilateral lower extremity edema) Neurological: Normal speech, Normal strength at 5/5 x4 extr - Studies Laboratory Data (last 24 hrs) 02/10/24 02/10/24 00:24 00:24 WBC 10.40 Hgb 11.8 L Hct 37.3 L Plt Count 260 Sodium 138 Potassium 3.4 L BUN 28 H Creatinine 1.43 H Glucose 249 H Magnesium 2.4 Assessment and Plan - Plan Assessment plan Acute hypoxic respiratory failure secondary to decompensated heart failure HFrEF Cardiomegaly Elevated BNP Cardiology consult, telemetry, Trend troponin, trend BMP Daily weights, I&O 02/09 BNP 2436 02/09 troponin normal 39.9 Acute on chronic kidney injury likely secondary to prerenal congestive heart failure, with diuretic use Trend BUN and creatinine Avoid nephrotoxic medication 02/09 BUN 28 creatinine 1.43 Hypokalemia Trend electrolytes replace as needed 02/09 potassium 3.4 Microcytic anemia Trend H&H 02/09 hemoglobin 11.8 hematocrit 37.3 Diabetes with hyperglycemia unknown control Accu-Chek ACHS, sliding scale insulin Tobacco use History of polysubstance abuse Educated on tobacco cessation Urine drug screen pending Diet cardiac Full code DVT heparin Disposition Home Discharge Plan: Home - Advance Directives Does patient have a Living Will: No Does patient have a Durable POA for Healthcare: No Critical Care: No Time Spent Managing Pts Care (In Minutes): 55
[2024-02-10] MEDS ORDERED: NICOTINE 21 MG/PAT TD ONE (04:50)
[2024-02-10 05:40] LABS: Barbiturates NEGATIVE (NEGATIVE); Benzodiazepines NEGATIVE (NEGATIVE); Cocaine NEGATIVE (NEGATIVE); METHAMPHETAM POSITIVE (NEGATIVE); Methadone NEGATIVE (NEGATIVE); Opiates NEGATIVE (NEGATIVE); Phencyclidine NEGATIVE (NEGATIVE); THC Cannibis NEGATIVE (NEGATIVE)
--- NOTE | 2024-02-10 11:12 | P.HP ---
Certification for Inpatient With expected LOS: >2 Midnights Patient will require the following post-hospital care: None Practitioner: I am a practitioner with admitting privileges, knowledge of patient current condition, hospital course, and medical plan of care. Services: Services provided to patient in accordance with Admission requirements found in Title 42 Section 412.3 of the Code of Federal Regulations Patient History Date of Service: 02/10/24 Reason for admission: Congestive heart failur History of Present Illness: Mr. Epstein is a 58 year old male with a past medical history of severe systolic heart failure with low EF, coronary artery disease status post stent, dyslipidemia, and hypertension who presented to the ED for left lateral chest pain that started after rolling over when he woke up from a nap. States he has had a cough for 1-2 weeks. Denies fever. Also reports swelling, states his lasix is making him urinate more but isn't taking the fluid off. On records review, he had a consultation with Dr. Dejesus November,. His echo at that time revealed an ejection fraction of 25% with severe global hypokinesis, severe pulmonary hypertension, and severe diastolic. We will admit him today for aggressive diuresis, electrolyte management, and further evaluation. Allergies No Known Allergies Allergy (Verified 12/05/22 19:56) Home Medications: Aspirin [Aspirin EC 81 MG] 81 mg PO DAILY #30 tab 12/06/22 Atorvastatin Calcium [Lipitor] 40 mg PO BEDTIME #30 tab 12/06/22 Amiloride HCl 5 mg PO DAILY #30 tab 12/12/23 Atorvastatin Calcium 40 mg PO DAILY #30 tab 12/12/23 Metformin HCl [Glucophage*] 500 mg PO BIDWM #60 tab 12/12/23 Midodrine HCl 5 mg PO TID #90 tab 12/12/23 Torsemide [Demadex*] 40 mg PO DAILY #60 tab 12/12/23 - Past Medical/Surgical History Diabetic: No -: CAD/SC -: Hypertension -: Systolic CHF -: CKD II (Dr. Blankenship/ Dr. Linn) -: Stents Psychosocial/ Personal History: Patient is homeless. - Family History Family History: Reviewed- Non-Contributory - Family History Father -: Heart disease, Hypertension Mother -: Heart disease, Hypertension - Social History Smoking Status: Current every day smoker Alcohol use: No CD- Drugs: No Caffeine use: Yes Review of Systems 10-point ROS is otherwise unremarkable Respiratory: Shortness of Breath Cardiovascular: Edema, As per HPI Physical Examination - Physical Exam General: Alert, Oriented x3 HEENT: Atraumatic, Normocephalic Neck: No LAD Respiratory: Diminished Cardiovascular: Regular rate/rhythm, Other (to upper abd) Capillary refill: <2 Seconds Gastrointestinal: Hypoactive Musculoskeletal: No clubbing Integumentary: Erythema, Other (mild right worse than left lower ext) Neurological: Normal speech, Normal tone Lymphatics: No axilla or inguinal lymphadenopathy External genitalia: Deferred Rectal: Deferred - Studies Laboratory Data (last 24 hrs) 02/10/24 02/10/24 00:24 00:24 WBC 10.40 Hgb 11.8 L Hct 37.3 L Plt Count 260 Sodium 138 Potassium 3.4 L BUN 28 H Creatinine 1.43 H Glucose 249 H Magnesium 2.4 Assessment and Plan - Plan Combined heart faliure with reduced ejection fraction (20-25%): Cardiology consult recommendations 12/07/23 Lasix 80 mg IV every 12 , electrolyte management , continue beta-naif and low-dose MICHAEL inhibitor if blood pressure tolerates, will try michael/arb if blood pressure tolerates. Chest pain: O2 per protocol Aspirin 81mg po daily NIDDM: FSBS achs with mild SSI coverage Dyslipidemia: Lipitor 40 mg nightly Stress test: 10/30/22 ejection fraction 14% Echo 12/06/23 -ejection fraction 25%, severe global hypokinesis, severe pulmonary hypertension, severe diastolic dysfunction Discharge Plan: Home Plan to discharge in: 72 Hours - Advance Directives Does patient have a Living Will: No Does patient have a Durable POA for Healthcare: No - Code Status/Comfort Care Code Status Assessed: Yes (Full)
[2024-02-10] MEDS: VALSARTAN 80 MG TAB PO SCH (12:00)
[2024-02-10] MEDS: FUROSEMIDE 40 MG/4 ML VIAL IV SCH (12:00)
[2024-02-10] MEDS: lisinopriL 5 MG TAB PO SCH (12:00)
[2024-02-10 12:53] LABS: PTT, Activated Partial Thromb 33.2 SECONDS (24.3-36.9); Protime INR 1.38
[2024-02-10 13:14] LABS: Albumin 3.4 g/dL (3.4-5.0); Albumin/Globulin Ratio 0.7 (1.1-1.8); Anion Gap 14.3 mEq/L (5.0-15.0); Bilirubin Total 1.9 mg/dL (0.2-1.0); C-Reactive Protein 16.5 mg/L (<3.00); Globulin 4.6 g/dL (2.3-3.5); Troponin High Sensitivity 39.9 pg/mL (<58.9)
[2024-02-10] MEDS ORDERED: VALSARTAN 80 MG TAB ONE (13:15)
[2024-02-10] MEDS ORDERED: lisinopriL 5 MG TAB ONE (13:16)
[2024-02-10] MEDS ORDERED: FUROSEMIDE 100 MG/10 ML VIAL IV ONE (13:16)
[2024-02-10 13:27] LABS: Magnesium 2.4 mg/dL (1.6-2.4); Potassium 4.3 mEq/L (3.5-5.1)
[2024-02-10] MEDS: HYDROCODONE/CHLORPHEN 5 ML/OSYR PO ONE (13:28)
[2024-02-10] MEDS ORDERED: HYDROCODONE/CHLORPHEN 5 ML/OSYR ONE (13:51)
--- NOTE | 2024-02-10 16:10 | CON ---
Date of Consultation: 02/10/2024 Reason For Consultation: Heart failure exacerbation. History Of Present Illness: A 58-year-old male with history of severe systolic heart failure, vee [place] artery disease, hypertension, dyslipidemia, presented with worsening shortness of breath, lower ex tremity edema and orthopnea. Denies having any nausea, vomiting, or diaphoresis. Past Medical History: As outlined above in the HPI. Medications: Refer reconciliation sheet for detailed list. Allergies: NO KNOWN DRUG ALLERGIES. Family History: No premature coronary artery disease or cancer. Social History: Active smoker. Does not drink, use any drugs. Review of Systems: All systems reviewed and they were negative except as mentioned in the HPI. Physical Examination: Vital Signs: Reviewed. Head and Neck: Pupils are equal, reactive to light. Intact eye movements. No cervical lymphadenopa thy. Positive JVD. Neck supple. Thyroid is not enlarged. Lungs: Crackles on both bases. No accessory muscle use or muscle retraction. Heart: Irregular. No extra sounds. Abdomen: Soft, nontender. Bowel sounds positive. No organomegaly. No masses or hernia. No rigidi ty or rebound. Extremities: No clubbing or cyanosis. 3+ edema. Neurologic: Alert, awake, oriented x3. No acute focal deficits appreciated. Investigations: BUN 29, creatinine 1.77, and hemoglobin is 11.8. Assessment And Recommendations: 1.Acute on chronic systolic heart failure exacerbation. Patient is severely fluid overloaded. Cont inue IV diuresis with Lasix. Monitor BUN, creatinine, electrolytes. 2.History of coronary artery disease with some chest discomfort. Cardiac enzymes are negative. No intervention is required at this moment. Recommend to start him on baby aspirin 81 mg and continue w ith lisinopril. Add metoprolol if blood pressure allows. 3.Dyslipidemia. Continue Lipitor 40 mg q.h.s. SR/MODL Voice ID: [id number] Report ID: [id number]
[2024-02-10] MEDS ORDERED: FUROSEMIDE 40 MG/4 ML VIAL IV SCH (17:00)
[2024-02-10 20:58] LABS: Absolute Basophils 0.1 K/uL (0-0.5); Absolute Lymphocytes (CBC) 1.2 K/uL (0.7-4.9); Absolute Monocytes 0.8 K/uL (0.1-1.3); Absolute Neutrophil 9.2 K/uL (1.8-8.0); Basophils % 1.1 % (0-1.3); Eosinophils % 0.3 % (0-4.4); Hematocrit 36.9 % (39.6-49.0); Hemoglobin 11.4 g/dL (13.6-17.9); Lymphocytes % 10.5 % (15.3-44.8); MCH 23.6 pg (27.0-35.0); MCV 76.2 fL (80-100); MPV 8.5 fL (7.6-11.3); Monocytes % 7.1 % (3.3-12.3); Platelets 272 thou/uL (152-406); RBC Red Blood Cell Count 4.84 M/uL (4.33-5.43)
[2024-02-10 21:16] LABS: Anion Gap 8.8 mEq/L (5.0-15.0); Magnesium 2.4 mg/dL (1.6-2.4); Potassium 3.8 mEq/L (3.5-5.1)
[2024-02-10] MEDS: ATORVASTATIN 40 MG TAB PO SCH (21:59)
[2024-02-10 22:23] LABS: Anisocytosis 1+; Blood Morphology Comment NOTED (NOT SEEN); Ovalocytes 2+; Platelet Estimate ADEQ; Polychromasia 1+; White Blood Cell Scan OK (OK)
[2024-02-11 00:15] LABS: Specific Gravity > 1.030 (1.005-1.030); Sqamous Epithelial <5 /HPF (None Seen); Urine Bacteria None Seen /HPF (<20); Urine Bilirubin NEGATIVE (Negative); Urine Blood Negative (Negative); Urine Clarity Clear (Clear); Urine Color Yellow (Yellow); Urine Culture Reflex Order NOT NEEDED; Urine Glucose NEGATIVE (Negative); Urine Ketones NEGATIVE (Negative); Urine Microscopic Reflex YN ORDER UMIC; Urine Mucus Slight /HPF (None Seen); Urine Nitrite NEGATIVE (Negative); Urine Protein TRACE (Negative); Urine RBC <5 /HPF (None Seen); Urine Urobilinogen 1+ (Normal); Urine WBC <5 /HPF (<5); Urine pH 5.5 (5.0-7.0)
[2024-02-11] MEDS: ALBUMIN HUMAN 25% 100 ML IV ONE (01:12)
[2024-02-11] MEDS: ALBUMIN HUMAN 25% 50 ML IV ONE (01:50)
[2024-02-11] MEDS: MIDODRINE HCL 5 MG TABLET PO PRN (03:05)
[2024-02-11 03:19] LABS: Absolute Eosinophils 0.1 K/uL (0-0.5); Absolute Lymphocytes (CBC) 1.5 K/uL (0.7-4.9); Absolute Monocytes 0.9 K/uL (0.1-1.3); Absolute Neutrophil 8.2 K/uL (1.8-8.0); Basophils % 0.2 % (0-1.3); Eosinophils % 1.1 % (0-4.4); Hematocrit 36.9 % (39.6-49.0); Hemoglobin 11.3 g/dL (13.6-17.9); Lymphocytes % 13.7 % (15.3-44.8); MCH 23.5 pg (27.0-35.0); MCHC 30.8 g/dL (32.0-36.0); MCV 76.5 fL (80-100); MPV 8.4 fL (7.6-11.3); Nucleated Red Blood Cells % 0.1 % (0-0); Platelets 257 thou/uL (152-406); RBC Red Blood Cell Count 4.82 M/uL (4.33-5.43)
[2024-02-11 03:29] LABS: Red Cell Distribution Width 22.1 % (12.1-15.2)
[2024-02-11 03:32] LABS: Anion Gap 11.1 mEq/L (5.0-15.0); Magnesium 2.4 mg/dL (1.6-2.4); Potassium 4.1 mEq/L (3.5-5.1)
--- NOTE | 2024-02-11 08:47 | P.PN ---
Subjective Date of Service: 02/11/24 Chief Complaint: Congestive heart failur Admitted with chest pain, history of acute on chronic heart heart failure, low EF, severe pulmonary hypertension - Physical Exam General: Alert, Oriented x3 HEENT: Atraumatic, Normocephalic Neck: No LAD Respiratory: Diminished Cardiovascular: Regular rate/rhythm, Other (to upper abd) Capillary refill: <2 Seconds Gastrointestinal: Hypoactive Musculoskeletal: No clubbing Integumentary: Erythema, Other (mild right worse than left lower ext) Neurological: Normal speech, Normal tone Lymphatics: No axilla or inguinal lymphadenopathy <Oneyda Griffith - Last Filed: 02/11/24 08:47> Date of Service: 02/11/24 <Letitia Riojas - Last Filed: 02/11/24 16:10> Review of Systems Per HPI <NachoOneyda - Last Filed: 02/11/24 08:47> Physical Examination - Vital Signs Temperature: 97.2 F Blood Pressure: 97/65 Pulse: 92 Respirations: 16 Pulse Ox (%): 96 <Oneyda Griffith - Last Filed: 02/11/24 08:47> Assessment And Plan - Plan Assessment plan Heart failure with reduced ejection fraction combined heart faliure with reduced ejection fraction (20-25%): Hypotension Cardiology consult recommendations, diuresis Midodrine, Cardiology recommendation 1. Acute on chronic systolic heart failure exacerbation. Patient is severely fluid overloaded. Continue IV diuresis with Lasix. Monitor BUN, creatinine, electrolytes. 2. History of coronary artery disease with some chest discomfort. Cardiac enzymes are negative. No intervention is required at this moment. Recommend to start him on baby aspirin 81 mg and continue with lisinopril. Add metoprolol if blood pressure allows. 3. Dyslipidemia. Continue Lipitor 40 mg q.h.s. Stress test: 10/30/22 ejection fraction 14% Echo 12/06/23 -ejection fraction 25%, severe global hypokinesis, severe pulmonary hypertension, severe diastolic dysfunction Chest pain rule out [place] O2 per protocol Aspirin 81mg po daily Trend troponin NIDDM: FSBS achs with mild SSI coverage Dyslipidemia: Lipitor 40 mg nightly Cardiac diet Discharge Plan: Home with home health Plan to discharge in: 72 Hours Discharge Plan: Home - Code Status/Comfort Care Code Status: Full Code Critical Care: No Time Spent Managing PTS Care (In Minutes): 35 <Oneyda Griffith - Last Filed: 02/11/24 08:47> - Plan Pt seen and examined. I agree with the note by the BEHAVIOR SUPPORT SPECIALIST. Pt is volume overloaded. Will continue lasix, strict I/O and daily weight. Cardiology is following. <Letitia Riojas - Last Filed: 02/11/24 16:10>
[2024-02-11] MEDS: FUROSEMIDE 20 MG/ 2ML VIAL IV SCH (09:00)
[2024-02-11] MEDS: MIDODRINE HCL 5 MG TABLET PO SCH (10:17)
[2024-02-11] MEDS: ATORVASTATIN 40 MG TAB PO SCH (10:17)
[2024-02-11] MEDS: ASPIRIN EC 81 MG TAB PO SCH (10:17)
--- NOTE | 2024-02-11 11:42 | P.PN ---
Subjective Date of Service: 02/11/24 Chief Complaint: Congestive heart failur Subjective: No new changes (Patient still feel SOB and bilateral lower extremity edema.) Review of Systems 10-point ROS is otherwise unremarkable Physical Examination - Vital Signs Temperature: 97.2 F Blood Pressure: 97/65 Pulse: 92 Respirations: 16 Pulse Ox (%): 96 - Physical Exam General: Alert, Oriented x3 Neck: Supple Respiratory: Crackles/rales Cardiovascular: Normal S1 S2, Edema Gastrointestinal: Normal bowel sounds Assessment And Plan - Current Problems (Diagnosis) (1) Acute on chronic systolic heart failure Current Visit: No Status: Acute Plan: please increase Lasix dose to 20 mg IV Q6 hours Please monitor input and output closely. correct electrolytes Patient with low BP so it is hard to really get him on goal directed medical therapy agree with midodrine and will continue to monitor (2) CAD (coronary artery disease) Current Visit: No Status: Chronic Plan: patient with history of coronary stents 2 years ago continue ASA 81 mg daily continue Lipitor 40 mg daily will need outpatient stress test. Qualifiers: Coronary Disease-Associated Artery/Lesion type: [place] artery [place] vs. transplanted heart: [place] heart Associated angina: without angina Qualified Code(s): I25.10 - Atherosclerotic heart disease of [place] coronary artery without angina pectoris (3) Hypertension Current Visit: No Status: Chronic Plan: Patient with low BP so it is hard to really get him on goal directed medical therapy agree with midodrine and will continue to monitor Qualifiers: Hypertension type: primary hypertension Qualified Code(s): I10 - Essential (primary) hypertension
--- NOTE | 2024-02-11 12:20 | RAD REPORT ---
EXAM DESCRIPTION: RAD - Chest Single View - 02/10/2024 1:05 am CLINICAL HISTORY: 58 years Male CHEST PAIN COMPARISON: October 08, 2023 TECHNIQUE: AP view of the skull is obtained. FINDINGS: Cardiac silhouette is enlarged. Central vessels are moderately increased. No pleural effusion on the right. Suspected small layering pleural effusion and left area airspace op acities lower lungs bilaterally left greater than right. No pneumothorax. IMPRESSION: Enlarged heart with moderate central congestion. Atelectatic change versus infiltrate lo wer lungs bilaterally left greater than right. Electronically signed by: Yazmin Vizcaino MD 02/10/2024 01:38 AM CDT Due to temporary technical issues with the PACS/Fluency reporting system, reports are being signed by the in house radiologist without review as a courtesy to ensure prompt reporting. The interpreting r adiologist is fully responsible for the content of the report.
--- NOTE | 2024-02-11 12:22 | RAD REPORT ---
EXAM DESCRIPTION: CT - Chest Abdomen Pelvis W Cont - 02/10/2024 6:40 am CLINICAL HISTORY: 58 years, Male, left sided rib pain, chest pain, cough COMPARISON: 10/28/2022 TECHNIQUE: Contrast-enhanced images of the chest, abdomen and pelvis were performed utilizing 3 mm s light thickness at 3 mm interval reconstruction from the lung apices to the ischial tuberosities afte r the administration of IV contrast. In addition multiplanar reformats in the coronal and sagittal plane were obtained and reviewed. An individualized dose optimization technique, Automated Exposure Control, was utilized for the perfo rmed procedure. FINDINGS: CHEST: Lower neck/chest wall: Visualized thyroid gland and soft tissues are normal. No carrie nopathy. Lungs and airways: The lung parenchyma demonstrate minimal haziness perhaps perhaps suggesting air tr apping and/or interstitial pulmonary edema. No significant pulmonary nodules and/or masses identified . No focal areas of consolidation. Airways: The trachea mainstem bronchus demonstrate to be unremarkable. Pleural: Small trace bilateral pleural effusions with very minimal compressive atelectatic changes po sterior CP angles. No evidence for pneumothorax. Hemidiaphragms are normally positioned. Mediastinum and lymph nodes: No significant mediastinal and/or hilar lymphadenopathy. The axillary re gions demonstrate to be clear. Heart: Moderate cardiomegaly There are minimal coronary artery calcifications. Thoracic aorta: There is minimal intimal aortic arch calcification with no evidence for aneurysm. Pulmonary arteries: The central pulmonary arteries demonstrate to be within normal limits. No evidenc e for significant central filling defect to suggest pulmonary embolus. Osseous structures and chest wall: There is anterior spondylosis within the mid/lower thoracic spine. ABDOMEN AND PELVIS: Liver: The liver demonstrated presence of decreased attenuation corresponding to mild fatty infiltration. Gallbladder: The gallbladder demonstrates presence of layering high density structures corresponding to cholelithiasis. No significant inflammatory changes and/or biliary duct dilatation. Adrenal glands: The adrenal glands demonstrate to be normal. Pancreas: The pancreas demonstrate to be normal. Spleen: The spleen demonstrate to be within normal limits. Kidneys: The kidneys demonstrate normal uptake of contrast media. No evidence for nephrolithiasis a nd/or hydronephrosis. GI: Grossly the unopacified stomach, small bowel and large bowel demonstrate to be within normal limi ts. No evidence for bowel dilatation and/or free air. The appendix was not visualized. The left-sided colon demonstrate to be decompressed with no gross abnormalities. : The urinary bladder demonstrate to be unremarkable. Genitalia: The prostate gland is normal. Abdominal aorta: The aorta demonstrate demonstrated presence of peripheral atheromatous plaque extend ing into the aortic bifurcation. Retroperitoneum: There is no retroperitoneal lymphadenopathy. There is a small trace of ascites. Bones: The bones demonstrate to be demineralized with degenerative changes at L2/L3 L5/S1. Soft tissues: There is minimal haziness within the skin/subcutaneous tissue corresponding to edema/ea rly anasarca. IMPRESSION: Small trace bilateral pleural effusions with very minimal compressive atelectatic change s posterior CP angles. Minimal haziness perhaps suggesting air trapping and/or interstitial pulmonary edema. Moderate cardiomegaly with minimal coronary artery calcifications. Cholelithiasis. Mild fatty infiltration of the liver. Small trace of ascites. Minimal haziness within the skin/subcutaneous tissue corresponding to edema/early anasarca. Electronically signed by: Aman Chester MD 02/10/2024 02:56 AM CDT Due to temporary technical issues with the PACS/Fluency reporting system, reports are being signed by the in house radiologist without review as a courtesy to ensure prompt reporting. The interpreting r adiologist is fully responsible for the content of the report.
[2024-02-12] MEDS: ACETAMINOPHEN 500 MG TAB PO PRN (01:45)
[2024-02-12 06:31] VITALS: BMI 33.0
[2024-02-12 06:51] LABS: Absolute Basophils 0.1 K/uL (0-0.5); Absolute Eosinophils 0.1 K/uL (0-0.5); Absolute Lymphocytes (CBC) 1.3 K/uL (0.7-4.9); Absolute Monocytes 0.7 K/uL (0.1-1.3); Absolute Neutrophil 7.9 K/uL (1.8-8.0); Basophils % 0.5 % (0-1.3); Eosinophils % 1.4 % (0-4.4); Hematocrit 35.9 % (39.6-49.0); Hemoglobin 11.3 g/dL (13.6-17.9); Lymphocytes % 12.8 % (15.3-44.8); MCH 23.6 pg (27.0-35.0); MCHC 31.5 g/dL (32.0-36.0); MCV 75.2 fL (80-100); MPV 8.5 fL (7.6-11.3); Monocytes % 7.3 % (3.3-12.3); Nucleated Red Blood Cells % 0.1 % (0-0); Platelets 273 thou/uL (152-406); RBC Red Blood Cell Count 4.77 M/uL (4.33-5.43); Red Cell Distribution Width 21.8 % (12.1-15.2)
[2024-02-12 07:16] LABS: Anion Gap 9.7 mEq/L (5.0-15.0); Magnesium 2.4 mg/dL (1.6-2.4); Potassium 3.7 mEq/L (3.5-5.1)
[2024-02-12] MEDS: ALBUMIN HUMAN 25% 100 ML IV ONE (08:52)
--- NOTE | 2024-02-12 09:47 | P.PN ---
Subjective Date of Service: 02/12/24 Chief Complaint: Congestive heart failur For shortness of breath, bilateral lower extremity edema admitted with chest pain, history of acute on chronic heart heart failure, low EF, severe pulmonary hypertension - Physical Exam General: Alert, Oriented x3 HEENT: Atraumatic, Normocephalic Neck: No LAD Respiratory: Crackles, dyspnea Cardiovascular: Regular rate/rhythm, Capillary refill: <2 Seconds Gastrointestinal: Hypoactive Musculoskeletal: No clubbing Integumentary: Erythema, Other (mild right worse than left lower ext) Neurological: Normal speech, Normal tone Lymphatics: No axilla or inguinal lymphadenopathy <Oneyda Griffith - Last Filed: 02/12/24 15:58> Date of Service: 02/12/24 <Letitia Riojas - Last Filed: 02/12/24 16:49> Review of Systems Per HPI <Oneyda Griffith - Last Filed: 02/12/24 15:58> Physical Examination - Vital Signs Temperature: 97.8 F Blood Pressure: 109/57 Pulse: 80 Respirations: 18 Pulse Ox (%): 91 <NachoOneyda - Last Filed: 02/12/24 15:58> Assessment And Plan - Plan Assessment plan Heart failure with reduced ejection fraction combined heart faliure with reduced ejection fraction (20-25%): Acute hypoxic respiratory failure secondary to decompensated heart failure Hypotension Cardiology consult recommendations, diuresis per cardiology Midodrine for hypotension BNP 2833, 3488, 2089 Cardiology recommendation 1. Acute on chronic systolic heart failure exacerbation. Patient is severely fluid overloaded. Continue IV diuresis with Lasix. Monitor BUN, creatinine, electrolytes. 2. History of coronary artery disease with some chest discomfort. Cardiac enzymes are negative. No intervention is required at this moment. Recommend to start him on baby aspirin 81 mg and continue with lisinopril. Add metoprolol if blood pressure allows. 3. Dyslipidemia. Continue Lipitor 40 mg q.h.s. Stress test: 10/30/22 ejection fraction 14% Echo 12/06/23 -ejection fraction 25%, severe global hypokinesis, severe pulmonary hypertension, severe diastolic dysfunction Chest pain rule out [place] O2 per protocol Aspirin 81mg po daily Trend troponin Acute on chronic kidney injury likely secondary to prerenal CHF Nephrology consulted, BUN 49 creatinine 3.17 NIDDM: FSBS achs with mild SSI coverage Dyslipidemia: Lipitor 40 mg nightly Tobacco use Educated on tobacco cessation Cardiac diet Discharge Plan: Home with home health Plan to discharge in: 72 Hours Discharge Plan: Home - Code Status/Comfort Care Code Status: Full Code Critical Care: No Time Spent Managing PTS Care (In Minutes): 35 <Oneyda Griffith - Last Filed: 02/12/24 15:58> Physician Review Additional Text: 02/12/24 14:09 Pt seen and examined. I agree with the note by the POLYETHYLENE BAG MACHINE OPERATOR. Continue midodrine for hypotension. Will change lasix to Bumex. Continue diuresis as BP permits. <Letitia Riojas - Last Filed: 02/12/24 16:49>
--- NOTE | 2024-02-12 12:12 | P.PN ---
Subjective Date of Service: 02/12/24 Chief Complaint: Congestive heart failur Subjective: No new changes Review of Systems 10-point ROS is otherwise unremarkable Physical Examination - Vital Signs Temperature: 97.8 F Blood Pressure: 109/57 Pulse: 80 Respirations: 18 Pulse Ox (%): 91 - Physical Exam General: Alert, Oriented x3 HEENT: Atraumatic Neck: Supple, JVD distended Respiratory: Crackles/rales Cardiovascular: Normal S1 S2, Edema Gastrointestinal: Normal bowel sounds Assessment And Plan - Current Problems (Diagnosis) (1) Acute on chronic systolic heart failure Current Visit: No Status: Acute Plan: please change Lasix to Bumex 2 mg IV Q 8 hours Please monitor input and output closely. correct electrolytes Patient with low BP so it is hard to really get him on goal directed medical therapy agree with midodrine and will continue to monitor (2) CAD (coronary artery disease) Current Visit: No Status: Chronic Plan: patient with history of coronary stents 2 years ago continue ASA 81 mg daily continue Lipitor 40 mg daily will need outpatient stress test. (3) Hypertension Current Visit: No Status: Chronic Plan: Patient with low BP so it is hard to really get him on goal directed medical therapy agree with midodrine and will continue to monitor
[2024-02-12] MEDS ORDERED: BUMETANIDE 1 MG TABLET PO SCH (14:00)
--- NOTE | 2024-02-12 14:13 | EKG ---
Test Date: 2024-02-09 Test Time: 23:34:36 It Sales Executive: DIANE MEASUREMENT RESULTS: Intervals: Rate: 107 MI: 162 QRSD: 100 QT: 376 QTc: 501 [place]: P: 51 MI: 162 QRS: 31 T: 15 INTERPRETIVE STATEMENTS: Sinus tachycardia with frequent premature ventricular complexes and fusion complexes Inferior infarct, age undetermined Abnormal ECG Compared to ECG 12/04/2023 13:14:23 Fusion complex(es) now present Atrial abnormality no longer present Myocardial infarct finding still present Electronically Signed On 02-12-24 14:07:17 CDT by Bryan Dejesus
[2024-02-12] MEDS: POTASSIUM CL SA 10 MEQ TAB PO ONE (16:41)
[2024-02-12] MEDS: BUMETANIDE 1 MG/4 ML VIAL IV SCH (16:41)
--- NOTE | 2024-02-12 17:20 | P.CNS ---
Date of Consult: 02/12/24 Reason for Consult: HUNG/ CKD Requesting Physician: Letitia Riojas Chief Complaint: Congestive heart failure History of Present Illness: Mr. Epstein is a 58 year old male with a past medical history of severe systolic heart failure with low EF, coronary artery disease status post stent, dyslipidemia, and hypertension who presented to the ED for left lateral chest pain that started after rolling over when he woke up from a nap. States he has had a cough for 1-2 weeks. Denies fever. Also reports swelling, states his lasix is making him urinate more but isn't taking the fluid off. On records review, he had a consultation with Dr. Dejesus November,. His echo at that time revealed an ejection fraction of 25% with severe global hypokinesis, severe pulmonary hypertension, and severe diastolic. We will admit him today for aggressive diuresis, electrolyte management, and further evaluation. [id number] 00:17 This 58 yrs old Male presents to ER via EMS with complaints of left chest pain. kb 00:17 Pt is a 58 year old male who presents for left lateral chest pain that started after kb rolling over when he woke up from a nap. States he has had a cough for 1-2 weeks. Denies fever. Also reports swelling, states his lasix is making him urinate more but isn't taking the fluid off. Allergies No Known Allergies Allergy (Verified 02/10/24 22:03) Home medications list reviewed: Yes Home Medications: Aspirin [Aspirin EC 81 MG] 81 mg PO DAILY #30 tab 12/06/22 Atorvastatin Calcium [Lipitor] 40 mg PO BEDTIME #30 tab 12/06/22 Amiloride HCl 5 mg PO DAILY #30 tab 12/12/23 Atorvastatin Calcium 40 mg PO DAILY #30 tab 12/12/23 Metformin HCl [Glucophage*] 500 mg PO BIDWM #60 tab 12/12/23 Midodrine HCl 5 mg PO TID #90 tab 12/12/23 Torsemide [Demadex*] 40 mg PO DAILY #60 tab 12/12/23 - Past Medical/Surgical History Diabetic: No -: CAD/NC -: Hypertension -: Systolic Diastolic CHF -: Pulmonary HTN/ TR -: CKD III (Dr. Blankenship/ Dr. Linn) -: DM II -: Iron Deficiency Anemia -: Stents Psychosocial/ Personal History: Patient is homeless. - Family History Father Medical History: Heart disease, Hypertension Mother Medical History: Heart disease, Hypertension - Social History Smoking Status: Current every day smoker Alcohol use: No CD- Drugs: No Caffeine use: Yes Review of Systems 10-point ROS is otherwise unremarkable General: Weakness, Malaise Cardiovascular: Edema Physical Examination Temp Pulse Resp BP Pulse Ox 97.8 F 80 18 103/67 91 02/12/24 15:59 02/12/24 15:59 02/12/24 15:59 02/12/24 16:41 02/12/24 15:59 General: In no apparent distress, Oriented x3, Cooperative HEENT: Atraumatic Neck: Supple Respiratory: Clear to auscultation bilaterally, Normal air movement Cardiovascular: Regular rate/rhythm, Edema Gastrointestinal: Soft and benign, Non-distended Musculoskeletal: No clubbing, No contractures Integumentary: No rashes, No cyanosis Neurological: Normal speech Blood work reviewed in the chart. Imagings Data: [id number] EXAM DESCRIPTION: CT - Chest Abdomen Pelvis W Cont - 02/10/2024 6:40 am CLINICAL HISTORY: 58 years, Male, left sided rib pain, chest pain, cough COMPARISON: 10/28/2022 TECHNIQUE: Contrast-enhanced images of the chest, abdomen and pelvis were performed utilizing 3 mm slight thickness at 3 mm interval reconstruction from the lung apices to the ischial tuberosities after the administration of IV contrast. In addition multiplanar reformats in the coronal and sagittal plane were o btained and reviewed. An individualized dose optimization technique, Automated Exposure Control, was utilized for the performed procedure. FINDINGS: CHEST: Lower neck/chest wall: Visualized thyroid gland and soft tissues are normal. No adenopathy. Lungs and airways: The lung parenchyma demonstrate minimal haziness perhaps perhaps suggesting air trapping and/or interstitial pulmonary edema. No s ignificant pulmonary nodules and/or masses identified. No focal areas of consolidation. Airways: The trachea mainstem bronchus demonstrate to be unremarkable. Pleural: Small trace bilateral pleural effusions with very minimal compressive atelectatic changes posterior CP angles. No evidence for pneumothorax. Hemidiaphragms are normally positioned. Mediastinum and lymph nodes: No significant mediastinal and/or hilar lymphadenopathy. The axillary regions demonstrate to be clear. Heart: Moderate cardiomegaly There are minimal coronary artery calcifications. Thoracic aorta: There is minimal intimal aortic arch calcification with no evidence for aneurysm. Pulmonary arteries: The central pulmonary arteries demonstrate to be within normal limits. No evidence for significant central filling defect to suggest pulmonary embolus. Osseous structures and chest wall: There is anterior spondylosis within the mid/lower thoracic spine. ABDOMEN AND PELVIS: Liver: The liver demonstrated presence of decreased attenuation corresponding to mild fatty infiltration. Gallbladder: The gallbladder demonstrates presence of layering high density structures corresponding to cholelithiasis. No significant inflammatory changes and/or biliary duct dilatation. Adrenal glands: The adrenal glands demonstrate to be normal. Pancreas: The pancreas demonstrate to be normal. Spleen: The spleen demonstrate to be within normal limits. Kidneys: The kidneys demonstrate normal uptake of contrast media. No evidence for nephrolithiasis and/or hydronephrosis. GI: Grossly the unopacified stomach, small bowel and large bowel demonstrate to be within normal limits. No evidence for bowel dilatation and/or free air. The appendix was not visualized. The left-sided colon demonstrate to be decompressed with no gross abnormalities. : The urinary bladder demonstrate to be unremarkable. Genitalia: The prostate gland is normal. Abdominal aorta: The aorta demonstrate demonstrated presence of peripheral atheromatous plaque extending into the aortic bifurcation. Retroperitoneum: There is no retroperitoneal lymphadenopathy. There is a small trace of ascites. Bones: The bones demonstrate to be demineralized with degenerative changes at L2/L3 L5/S1. Soft tissues: There is minimal haziness within the skin/subcutaneous tissue corresponding to edema/early anasarca. IMPRESSION: Small trace bilateral pleural effusions with very minimal compressive atelectatic changes posterior CP angles. Minimal haziness perhaps suggesting air trapping and/or interstitial pulmonary edema. Moderate cardiomegaly with minimal coronary artery calcifications. Cholelithiasis. Mild fatty infiltration of the liver. Small trace of ascites. Minimal haziness within the skin/subcutaneous tissue corresponding to edema/early anasarca. [id number] EXAM DESCRIPTION: RAD - Chest Single View - 02/10/2024 1:05 am CLINICAL HISTORY: 58 years Male CHEST PAIN COMPARISON: October 08, 2023 TECHNIQUE: AP view of the skull is obtained. FINDINGS: Cardiac silhouette is enlarged. Central vessels are moderately increased. No pleural effusion on the right. Suspected small layering pleural effusion and left area airspace opacities lower lungs bilaterally left greater than right. No pneumothorax. IMPRESSION: Enlarged heart with moderate central congestion. Atelectatic change versus infiltrate lower lungs bilaterally left greater than right. darrenrice LEFT VENTRICULAR WALL MOTION: SEVERE GLOBAL HYPOKINESIS DOPPLER/COLOR FLOW: SEE BELOW COMMENTS: 1. SEVERELY DEPRESSED LEFT VENTRICULAR EJECTION FRACTION 20-25% 2. SEVERE GLOBAL HYPOKINESIS 3. MODERATE MITRAL REGURGITATION 4. MODERATE TO SEVERE TRICUSPID REGURGITATION 5. 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 SEVERE DIASTOLIC DYSFUNCTION Conclusions/Impression: Stage II HUNG in the setting of IVC & hypotension concerning for MARLON/ATN complicated by aggressive diuresis CKD IIIa with Proteinuria -No NSAIDs -May need to reduce diuresis Hyponatremia -Continue Bumex Hypokalemia resolved Chronic Hypotension -Continue Midodrine Systolic Diastolic CHF, A/C Global Hypokinesis with LVEF 25% Severe Pulmonary HTN with moderate to severe TR Anasarca -Continue Bumex DM II with CKD & Hyperglycemia -RISS prn -Recommend DM diet Anemia in chronic illness Iron Deficiency -Monitor H&H Hospitalist and ER notes reviewed Thank you kindly for the consultation
[2024-02-13 04:30] LABS: Absolute Basophils 0.1 K/uL (0-0.5); Absolute Eosinophils 0.1 K/uL (0-0.5); Absolute Lymphocytes (CBC) 1.2 K/uL (0.7-4.9); Absolute Monocytes 0.7 K/uL (0.1-1.3); Absolute Neutrophil 6.9 K/uL (1.8-8.0); Basophils % 1.2 % (0-1.3); Eosinophils % 1.4 % (0-4.4); Hematocrit 35.6 % (39.6-49.0); Hemoglobin 11.3 g/dL (13.6-17.9); Lymphocytes % 13.6 % (15.3-44.8); MCH 23.9 pg (27.0-35.0); MCHC 31.8 g/dL (32.0-36.0); MCV 75.2 fL (80-100); MPV 8.2 fL (7.6-11.3); Monocytes % 7.3 % (3.3-12.3); Neutrophils % 76.5 % (41.7-73.7); Nucleated Red Blood Cells % 0.1 % (0-0); Platelets 278 thou/uL (152-406); RBC Red Blood Cell Count 4.73 M/uL (4.33-5.43)
[2024-02-13 04:38] LABS: Red Cell Distribution Width 22.2 % (12.1-15.2)
[2024-02-13 04:46] LABS: Anion Gap 9.1 mEq/L (5.0-15.0); Magnesium 2.7 mg/dL (1.6-2.4); Phosphorus 4.5 mg/dL (2.5-4.9); Potassium 4.1 mEq/L (3.5-5.1)
--- NOTE | 2024-02-13 08:08 | P.PN ---
Subjective Date of Service: 02/13/24 Chief Complaint: Congestive heart failure For shortness of breath, bilateral lower extremity edema admitted with chest pain, history of acute on chronic heart heart failure, low EF, severe pulmonary hypertension Nephrology is following for acute kidney injury, renal insufficiency - Physical Exam General: Alert, Oriented x3 HEENT: Atraumatic, Normocephalic Neck: No LAD Respiratory: Crackles, dyspnea Cardiovascular: Regular rate/rhythm, Capillary refill: <2 Seconds Gastrointestinal: Hypoactive Musculoskeletal: No clubbing Integumentary: Erythema, Other (mild right worse than left lower ext) Neurological: Normal speech, Normal tone Lymphatics: No axilla or inguinal lymphadenopathy <Oneyda Griffith - Last Filed: 02/13/24 14:04> Date of Service: 02/14/24 <Letitia Riojas - Last Filed: 02/14/24 22:27> Review of Systems Per HPI <Oneyda Griffith - Last Filed: 02/13/24 14:04> Physical Examination - Vital Signs Temperature: 97.6 F Blood Pressure: 99/53 Pulse: 87 Respirations: 20 Pulse Ox (%): 94 <Oneyda Griffith - Last Filed: 02/13/24 14:04> Assessment And Plan - Plan Assessment plan Heart failure with reduced ejection fraction improved combined heart faliure with reduced ejection fraction (20-25%): Acute hypoxic respiratory failure secondary to decompensated heart failure Hypotension Cardiology consult recommendations, diuresis per cardiology Midodrine for hypotension BNP 2833, 3488, 2089, 1456 Cardiology recommendation 1. Acute on chronic systolic heart failure exacerbation. Patient is severely fluid overloaded. Continue IV diuresis with Lasix. Monitor BUN, creatinine, electrolytes. 2. History of coronary artery disease with some chest discomfort. Cardiac enzymes are negative. No intervention is required at this moment. Recommend to start him on baby aspirin 81 mg and continue with lisinopril. Add metoprolol if blood pressure allows. 3. Dyslipidemia. Continue Lipitor 40 mg q.h.s. Stress test: 10/30/22 ejection fraction 14% Echo 12/06/23 -ejection fraction 25%, severe global hypokinesis, severe pulmonary hypertension, severe diastolic dysfunction Chest pain rule out [place] O2 per protocol Aspirin 81mg po daily Trend troponin Acute on chronic kidney injury likely secondary to prerenal CHF improving Nephrology consulted, BUN 49 creatinine 3.17 Anemia of chronic disease stable Trend H&H NIDDM: FSBS achs with mild SSI coverage Dyslipidemia: Lipitor 40 mg nightly Tobacco use Educated on tobacco cessation Cardiac diet Discharge Plan: Home with home health Plan to discharge in: 72 Hours Discharge Plan: Home - Code Status/Comfort Care Code Status: Full Code Critical Care: No Time Spent Managing PTS Care (In Minutes): 35 <Oneyda Griffith - Last Filed: 02/13/24 14:04> - Plan Pt seen and examined. I agree with the note by the DIVIDING MACHINE OPERATOR HELPER. Will continue bumex 2mg iv TID unless SBP < 80. Continue strict i/o and daily weight. <Letitia Riojas - Last Filed: 02/14/24 22:27>
--- NOTE | 2024-02-13 16:36 | P.PN ---
Subjective Date of Service: 02/13/24 Chief Complaint: Congestive heart failure Subjective: No new changes Review of Systems 10-point ROS is otherwise unremarkable Physical Examination - Vital Signs Temperature: 97.6 F Blood Pressure: 99/53 Pulse: 87 Respirations: 20 Pulse Ox (%): 94 - Physical Exam General: Alert, Oriented x3 HEENT: Atraumatic Neck: Supple Respiratory: Crackles/rales Cardiovascular: Normal S1 S2, Edema Gastrointestinal: Normal bowel sounds Assessment And Plan - Current Problems (Diagnosis) (1) Acute on chronic systolic heart failure Current Visit: No Status: Acute Plan: Bumex 2 mg IV Q 8 hours (please do not hold unless patient systolic BP <80 mmHg) Please monitor input and output closely. correct electrolytes Patient with low BP so it is hard to really get him on goal directed medical therapy agree with midodrine and will continue to monitor (2) CAD (coronary artery disease) Current Visit: No Status: Chronic Plan: patient with history of coronary stents 2 years ago continue ASA 81 mg daily continue Lipitor 40 mg daily will need outpatient stress test. Qualifiers: Coronary Disease-Associated Artery/Lesion type: [place] artery [place] vs. transplanted heart: [place] heart Associated angina: without angina Qualified Code(s): I25.10 - Atherosclerotic heart disease of [place] coronary artery without angina pectoris (3) Hypertension Current Visit: No Status: Chronic Plan: Patient with low BP so it is hard to really get him on goal directed medical therapy agree with midodrine and will continue to monitor Qualifiers: Hypertension type: primary hypertension Qualified Code(s): I10 - Essential (primary) hypertension
--- NOTE | 2024-02-13 22:15 | P.PN ---
Date of Service: 02/13/24 Vital Signs Temp Pulse Resp BP Pulse Ox 97.5 F 81 18 100/61 92 02/13/24 20:00 02/13/24 20:00 02/13/24 20:00 02/13/24 20:00 02/13/24 20:00 Medications Acetaminophen (Acetaminophen 500 Mg Tab) 500 mg PO Q4HP PRN PRN Reason: Pain scale 2-4 (Mild) Last Admin: 02/12/24 01:45 Dose: 500 mg Aspirin (Aspirin Ec 81 Mg Tab) 81 mg PO DAILY [facility] Last Admin: 02/13/24 07:55 Dose: 81 mg Atorvastatin Calcium (Atorvastatin 40 Mg Tab) 40 mg PO DAILY [facility] Last Admin: 02/13/24 07:55 Dose: 40 mg Bumetanide (Bumetanide 1 Mg/4 Ml Vial) 2 mg IV Q8HR [facility] Last Admin: 02/13/24 18:07 Dose: 2 mg Midodrine (Midodrine Hcl 5 Mg Tablet) 5 mg PO TID [facility] Last Admin: 02/13/24 20:56 Dose: 5 mg Assessment/ Plan: Nephrology No dyspnea No chest pain Persistent edema Fatigue No acute events overnight Vitals, medications, blood work and imaging reviewed in the chart General: In no apparent distress, Oriented x3, Cooperative HEENT: Atraumatic Neck: Supple Respiratory: Clear to auscultation bilaterally, Normal air movement Cardiovascular: Regular rate/rhythm, Edema Gastrointestinal: Soft and benign, Non-distended Musculoskeletal: No clubbing, No contractures Integumentary: No rashes, No cyanosis Neurological: Normal speech Blood work reviewed in the chart. Imagings Data: [id number] EXAM DESCRIPTION: CT - Chest Abdomen Pelvis W Cont - 02/10/2024 6:40 am CLINICAL HISTORY: 58 years, Male, left sided rib pain, chest pain, cough COMPARISON: 10/28/2022 TECHNIQUE: Contrast-enhanced images of the chest, abdomen and pelvis were performed utilizing 3 mm slight thickness at 3 mm interval reconstruction from the lung apices to the ischial tuberosities after the administration of IV contrast. In addition multiplanar reformats in the coronal and sagittal plane were obtained and reviewed. An individualized dose optimization technique, Automated Exposure Control, was utilized for the performed procedure. FINDINGS: CHEST: Lower neck/chest wall: Visualized thyroid gland and soft tissues are normal. No adenopathy. Lungs and airways: The lung parenchyma demonstrate minimal haziness perhaps perhaps suggesting air trapping and/or interstitial pulmonary edema. No significant pulmonary nodules and/or masses identified. No focal areas of consolidation. Airways: The trachea mainstem bronchus demonstrate to be unremarkable. Pleural: Small trace bilateral pleural effusions with very minimal compressive atelectatic changes posterior CP angles. No evidence for pneumothorax. Hemidiaphragms are normally positioned. Mediastinum and lymph nodes: No significant mediastinal and/or hilar lymphadenopathy. The axillary regions demonstrate to be clear. Heart: Moderate cardiomegaly There are minimal coronary artery calcifications. Thoracic aorta: There is minimal intimal aortic arch calcification with no evidence for aneurysm. Pulmonary arteries: The central pulmonary arteries demonstrate to be within normal limits. No evidence for significant central filling defect to suggest pulmonary embolus. Osseous structures and chest wall: There is anterior spondylosis within the mid/lower thoracic spine. ABDOMEN AND PELVIS: Liver: The liver demonstrated presence of decreased attenuation corresponding to mild fatty infiltration. Gallbladder: The gallbladder demonstrates presence of layering high density structures corresponding to cholelithiasis. No significant inflammatory changes and/or biliary duct dilatation. Adrenal glands: The adrenal glands demonstrate to be normal. Pancreas: The pancreas demonstrate to be normal. Spleen: The spleen demonstrate to be within normal limits. Kidneys: The kidneys demonstrate normal uptake of contrast media. No evidence for nephrolithiasis and/or hydronephrosis. GI: Grossly the unopacified stomach, small bowel and large bowel demonstrate to be within normal limits. No evidence for bowel dilatation and/or free air. The appendix was not visualized. The left-sided colon demonstrate to be decompressed with no gross abnormalities. : The urinary bladder demonstrate to be unremarkable. Genitalia: The prostate gland is normal. Abdominal aorta: The aorta demonstrate demonstrated presence of peripheral atheromatous plaque extending into the aortic bifurcation. Retroperitoneum: There is no retroperitoneal lymphadenopathy. There is a small trace of ascites. Bones: The bones demonstrate to be demineralized with degenerative changes at L2/L3 L5/S1. Soft tissues: There is minimal haziness within the skin/subcutaneous tissue corresponding to edema/early anasarca. IMPRESSION: Small trace bilateral pleural effusions with very minimal compressive atelectatic changes posterior CP angles. Minimal haziness perhaps suggesting air trapping and/or interstitial pulmonary edema. Moderate cardiomegaly with minimal coronary artery calcifications. Cholelithiasis. Mild fatty infiltration of the liver. Small trace of ascites. Minimal haziness within the skin/subcutaneous tissue corresponding to edema/early anasarca. EXAM DESCRIPTION: RAD - Chest Single View - 02/10/2024 1:05 am CLINICAL HISTORY: 58 years Male CHEST PAIN COMPARISON: October 08, 2023 TECHNIQUE: AP view of the skull is obtained. FINDINGS: Cardiac silhouette is enlarged. Central vessels are moderately increased. No pleural effusion on the right. Suspected small layering pleural effusion and left area airspace opacities lower lungs bilaterally left greater than right. No pneumothorax. IMPRESSION: Enlarged heart with moderate central congestion. Atelectatic change versus infiltrate lower lungs bilaterally left greater than right. LEFT VENTRICULAR WALL MOTION: SEVERE GLOBAL HYPOKINESIS DOPPLER/COLOR FLOW: SEE BELOW COMMENTS: 1. SEVERELY DEPRESSED LEFT VENTRICULAR EJECTION FRACTION 20-25% 2. SEVERE GLOBAL HYPOKINESIS 3. MODERATE MITRAL REGURGITATION 4. MODERATE TO SEVERE TRICUSPID REGURGITATION 5. 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 SEVERE DIASTOLIC DYSFUNCTION Conclusions/Impression: Stage II HUNG in the setting of IVC & hypotension concerning for MARLON/ATN complicated by aggressive diuresis CKD IIIa with Proteinuria -No NSAIDs -Continue diuresis as tolerated Hyponatremia -Continue Bumex Hypokalemia resolved Chronic Hypotension -Continue Midodrine Systolic Diastolic CHF, A/C Global Hypokinesis with LVEF 25% Severe Pulmonary HTN with moderate to severe TR Moderate MR Anasarca -Continue Bumex as tolerated DM II with CKD & Hyperglycemia -RISS prn -Recommend DM diet Anemia in chronic illness Iron Deficiency -Monitor H&H Hospitalist and Cardiology notes reviewed
[2024-02-14 06:37] LABS: Anion Gap 10.1 mEq/L (5.0-15.0); Magnesium 2.5 mg/dL (1.6-2.4); Potassium 4.1 mEq/L (3.5-5.1)
[2024-02-14 06:48] LABS: Absolute Eosinophils 0.1 K/uL (0-0.5); Absolute Lymphocytes (CBC) 1.1 K/uL (0.7-4.9); Absolute Monocytes 0.8 K/uL (0.1-1.3); Absolute Neutrophil 6.5 K/uL (1.8-8.0); Basophils % 0.6 % (0-1.3); Eosinophils % 1.1 % (0-4.4); Hemoglobin 11.3 g/dL (13.6-17.9); Lymphocytes % 12.9 % (15.3-44.8); MCH 23.6 pg (27.0-35.0); MCHC 31.4 g/dL (32.0-36.0); MCV 75.2 fL (80-100); MPV 8.5 fL (7.6-11.3); Monocytes % 9.3 % (3.3-12.3); Neutrophils % 76.1 % (41.7-73.7); Platelets 256 thou/uL (152-406); RBC Red Blood Cell Count 4.79 M/uL (4.33-5.43); Red Cell Distribution Width 21.6 % (12.1-15.2)
--- NOTE | 2024-02-14 08:22 | P.DS ---
Admission Date: 02/10/24 Discharge Date: 02/14/24 Reason for Admission: Congestive heart failure Brief History of Present Illness: Mr. Epstein is a 58 year old male with a past medical history of severe systolic heart failure with low EF, coronary artery disease status post stent, dyslipidemia, and hypertension who presented to the ED for left lateral chest pain that started after rolling over when he woke up from a nap. States he has had a cough for 1-2 weeks. Denies fever. Also reports swelling, states his lasix is making him urinate more but isn't taking the fluid off. On records review, he had a consultation with Dr. Dejesus November,. His echo at that time revealed an ejection fraction of 25% with severe global hypokinesis, severe pulmonary hypertension, and severe diastolic. We will admit him today for aggressive diuresis, electrolyte management, and further evaluation. General: Alert, Oriented x3 HEENT: Atraumatic, Normocephalic Neck: No LAD Respiratory: Diminished Cardiovascular: Regular rate/rhythm, Other (to upper abd) Capillary refill: <2 Seconds Gastrointestinal: Hypoactive Musculoskeletal: No clubbing Integumentary: Erythema, Other (mild right worse than left lower ext) Neurological: Normal speech, Normal tone Lymphatics: No axilla or inguinal lymphadenopathy Hospital Course: 58 year-old male patient presented with chronic heart failure, medication noncompliance, tobacco use presented with decompensated heart failure. Condition improved with diuretics, strict cardiac diet. Patient tolerating diet, stable for discharge to home with follow-up appointment with primary care, follow-up with cardiology after discharge physician. PROBLEM: Acute on chronic heart failure with reduced ejection fraction Medication noncompliance Tobacco use COPD Cma-[id number] diabetes mellitus Diuretic hold if blood pressure less than 80 New prescription albuterol inhaler 2 puffs every 4-6 hours as needed for shortness of breath wheezing Dulera inhaler 2 puffs twice daily for COPD Educated on smoking cessation Follow-up with cardiology Low-sodium diet, no processed food, recommend daily weights Continue home medicines as previously prescribed GOAL: Clear understanding of disease process INSTRUCTIONS: Physician Discharge Instructions: -Follow-up with PCP in 1 to 2 weeks -Please [phone] if any questions regarding hospital stay -Please call nursing station at [phone] if any nursing or medication questions -Return to the emergency room if symptoms worsen Diet: ADA, low sodium Activity: Fall precautions <OlivierlucyOneyda - Last Filed: 02/14/24 17:38> Admission Date: 02/10/24 Discharge Date: 02/14/24 Hospital Course: Pt seen and examined. I agree with note by the POT OPERATOR. Will continue bumex 2mg po BID, low salt diet and strict I/O. Will hold bumex if SBP < 80. Pt was advised to follow up with Cardiology. Pt left AMA on 02/14/24 <Letitia Riojas - Last Filed: 02/14/24 22:10> Disposition: AMA-LEFT AGAINST MEDICAL ADVIC Discharge Condition: FAIR Vital Signs/Physical Exam: Temp Pulse Resp BP Pulse Ox 98.0 F 88 18 107/72 95 02/14/24 04:00 02/14/24 04:00 02/14/24 04:00 02/14/24 04:00 02/14/24 04:00 Laboratory Data at Discharge: WBC 8.60 thou/uL (4.3-10.9) 02/14/24 05:45 Hgb 11.3 g/dL (13.6-17.9) L 02/14/24 05:45 Hct 36.0 % (39.6-49.0) L 02/14/24 05:45 Plt Count 256 thou/uL (152-406) 02/14/24 05:45 PT 15.0 SECONDS (9.5-12.5) H 02/10/24 12:34 INR 1.38 02/10/24 12:34 APTT 33.2 SECONDS (24.3-36.9) 02/10/24 12:34 Sodium 135 mEq/L (136-145) L 02/14/24 05:45 Potassium 4.1 mEq/L (3.5-5.1) 02/14/24 05:45 BUN 48 mg/dL (7-18) H 02/14/24 05:45 Creatinine 2.10 mg/dL (0.70-1.30) H 02/14/24 05:45 Glucose 155 mg/dL (74-106) H 02/14/24 05:45 Uric Acid Cancelled 02/13/24 05:00 Phosphorus Cancelled 02/13/24 05:00 Magnesium 2.5 mg/dL (1.6-2.4) H 02/14/24 05:45 Total Bilirubin 1.9 mg/dL (0.2-1.0) H 02/10/24 12:34 AST 29 U/L (15-37) 02/10/24 12:34 ALT 20 U/L (16-61) 02/10/24 12:34 Alkaline Phosphatase 200 U/L (45-117) H 02/10/24 12:34 Triglycerides Cancelled 02/11/24 05:00 Cholesterol Cancelled 02/11/24 05:00 HDL Cholesterol Cancelled 02/11/24 05:00 Cholesterol/HDL Ratio Cancelled 02/11/24 05:00 <Oneyda Griffith - Last Filed: 02/14/24 17:38> Vital Signs/Physical Exam: Temp Pulse Resp BP Pulse Ox 97.1 F 55 18 130/60 98 02/14/24 12:00 02/14/24 12:00 02/14/24 12:00 02/14/24 12:00 02/14/24 12:00 Laboratory Data at Discharge: WBC 8.60 thou/uL (4.3-10.9) 02/14/24 05:45 Hgb 11.3 g/dL (13.6-17.9) L 02/14/24 05:45 Hct 36.0 % (39.6-49.0) L 02/14/24 05:45 Plt Count 256 thou/uL (152-406) 02/14/24 05:45 PT 15.0 SECONDS (9.5-12.5) H 02/10/24 12:34 INR 1.38 02/10/24 12:34 APTT 33.2 SECONDS (24.3-36.9) 02/10/24 12:34 Sodium 135 mEq/L (136-145) L 02/14/24 05:45 Potassium 4.1 mEq/L (3.5-5.1) 02/14/24 05:45 BUN 48 mg/dL (7-18) H 02/14/24 05:45 Creatinine 2.10 mg/dL (0.70-1.30) H 02/14/24 05:45 Glucose 155 mg/dL (74-106) H 02/14/24 05:45 Uric Acid Cancelled 02/13/24 05:00 Phosphorus Cancelled 02/13/24 05:00 Magnesium 2.5 mg/dL (1.6-2.4) H 02/14/24 05:45 Total Bilirubin 1.9 mg/dL (0.2-1.0) H 02/10/24 12:34 AST 29 U/L (15-37) 02/10/24 12:34 ALT 20 U/L (16-61) 02/10/24 12:34 Alkaline Phosphatase 200 U/L (45-117) H 02/10/24 12:34 Triglycerides Cancelled 02/11/24 05:00 Cholesterol Cancelled 02/11/24 05:00 HDL Cholesterol Cancelled 02/11/24 05:00 Cholesterol/HDL Ratio Cancelled 02/11/24 05:00 <Letitia Riojas - Last Filed: 02/14/24 22:10> Diet: AHA Activity: Fall precautions Time spent managing pt's care (in minutes): 55 <Oneyda Griffith - Last Filed: 02/14/24 17:38> <Letitia Riojas - Last Filed: 02/14/24 22:10> Home Medications: Aspirin [Aspirin EC 81 MG] 81 mg PO DAILY #30 tab 12/06/22 Atorvastatin Calcium [Lipitor] 40 mg PO BEDTIME #30 tab 12/06/22 Amiloride HCl 5 mg PO DAILY #30 tab 12/12/23 Atorvastatin Calcium 40 mg PO DAILY #30 tab 12/12/23 Metformin HCl [Glucophage*] 500 mg PO BIDWM #60 tab 12/12/23 Torsemide [Demadex*] 40 mg PO DAILY #60 tab 12/12/23 Albuterol Inhaler [Ventolin Inhaler*] 2 puff IH Q6H PRN 30 Days #1 inh 02/14/24 Midodrine HCl 5 mg PO TID 30 Days #90 tab 02/14/24 Mometasone/Formoterol [Dulera 200 Mcg-5 Mcg Inhaler] 13 gm IH BID 30 Days #1 inh 02/14/24 New Medications: Mometasone/Formoterol [Dulera 200 Mcg-5 Mcg Inhaler] 13 gm IH BID 30 Days #1 inh Midodrine HCl 5 mg PO TID 30 Days #90 tab Albuterol Inhaler [Ventolin Inhaler*] 2 puff IH Q6H PRN 30 Days #1 inh PRN Reason: Shortness Of Breath Followup: Jesu Briceno MD [ACTIVE - CAN ADMIT] - NONE,NONE [Primary Care Provider] - Bryan Dejesus MD [ACTIVE - CAN ADMIT] -
[2024-02-14 08:30] LABS: Platelet Estimate ADEQ
[2024-02-14 08:31] LABS: Blood Morphology Comment NOTED (NOT SEEN); White Blood Cell Scan OK (OK)
[2024-02-14 08:32] LABS: Anisocytosis 1+; Ovalocytes 1+
[2024-02-14 09:29] VITALS: TEMP 97.1
--- NOTE | 2024-02-14 09:39 | P.PN ---
Subjective Date of Service: 02/14/24 Chief Complaint: Congestive heart failure For shortness of breath, bilateral lower extremity edema admitted with chest pain, history of acute on chronic heart heart failure, low EF, severe pulmonary hypertension Nephrology is following for acute kidney injury, renal insufficiency - Physical Exam General: Alert, Oriented x3 HEENT: Atraumatic, Normocephalic Neck: No LAD Respiratory: Crackles, dyspnea Cardiovascular: Regular rate/rhythm, Capillary refill: <2 Seconds Gastrointestinal: Hypoactive Musculoskeletal: No clubbing Integumentary: Erythema, Other (mild right worse than left lower ext) Neurological: Normal speech, Normal tone Lymphatics: No axilla or inguinal lymphadenopathy Physical Examination - Vital Signs Temperature: 97.1 F Blood Pressure: 103/60 Pulse: 95 Respirations: 18 Pulse Ox (%): 95 Assessment And Plan - Plan Assessment plan Heart failure with reduced ejection fraction improved combined heart faliure with reduced ejection fraction (20-25%): Acute hypoxic respiratory failure secondary to decompensated heart failure Hypotension Cardiology consult recommendations, diuresis per cardiology Midodrine for hypotension BNP 2833, 3488, 2089, 1456 Cardiology recommendation 1. Acute on chronic systolic heart failure exacerbation. Patient is severely fluid overloaded. Continue IV diuresis with Lasix. Monitor BUN, creatinine, electrolytes. 2. History of coronary artery disease with some chest discomfort. Cardiac enzymes are negative. No intervention is required at this moment. Recommend to start him on baby aspirin 81 mg and continue with lisinopril. Add metoprolol if blood pressure allows. 3. Dyslipidemia. Continue Lipitor 40 mg q.h.s. Stress test: 10/30/22 ejection fraction 14% Echo 12/06/23 -ejection fraction 25%, severe global hypokinesis, severe pulmonary hypertension, severe diastolic dysfunction Chest pain rule out LA O2 per protocol Aspirin 81mg po daily Trend troponin Acute on chronic kidney injury likely secondary to prerenal CHF improving Nephrology consulted, is on routine diuretics BUN 49 creatinine 3.17,, creatinine is improved BUN 48 creatinine 2.10 COPD Tobacco use Albuterol inhaler, Dulera to keep at Anemia of chronic disease stable Trend H&H NIDDM: FSBS achs with mild SSI coverage Dyslipidemia: Lipitor 40 mg nightly Tobacco use Educated on tobacco cessation Cardiac diet Discharge Plan: Home with home health Plan to discharge in: 72 Hours - Code Status/Comfort Care Code Status: Full Code Critical Care: No Time Spent Managing PTS Care (In Minutes): 35
[2024-02-14] MEDS ORDERED: ALBUTEROL INHALER 200 PUFF/6.7 GM IH PRN (09:51)
[2024-02-14] MEDS: DULERA 200/5 (MOMETASONE/FORMOTEROL) INHALER IH SCH (10:29)
[2024-02-14 10:30] VITALS: O2SAT 93
--- NOTE | 2024-02-14 10:31 | P.PN ---
Date of Service: 02/14/24 Vital Signs Temp Pulse Resp BP Pulse Ox 97.1 F 95 H 18 103/60 95 02/14/24 09:59 02/14/24 09:59 02/14/24 09:59 02/14/24 09:59 02/14/24 09:59 Medications Acetaminophen (Acetaminophen 500 Mg Tab) 500 mg PO Q4HP PRN PRN Reason: Pain scale 2-4 (Mild) Last Admin: 02/12/24 01:45 Dose: 500 mg Albuterol Sulfate (Albuterol Inhaler 200 Puff/6.7 Gm) 2 puff IH Q4H PRN PRN Reason: SHORTNESS OF BREATH Aspirin (Aspirin Ec 81 Mg Tab) 81 mg PO DAILY [facility] Last Admin: 02/14/24 09:09 Dose: 81 mg Atorvastatin Calcium (Atorvastatin 40 Mg Tab) 40 mg PO DAILY [facility] Last Admin: 02/14/24 09:09 Dose: 40 mg Bumetanide (Bumetanide 1 Mg/4 Ml Vial) 2 mg IV Q8HR [facility] Last Admin: 02/14/24 09:09 Dose: 2 mg Midodrine (Midodrine Hcl 5 Mg Tablet) 5 mg PO TID [facility] Last Admin: 02/14/24 09:09 Dose: 5 mg Assessment/ Plan: Nephrology No dyspnea No chest pain Persistent edema Feeling better No acute events overnight Vitals, medications, blood work and imaging reviewed in the chart General: In no apparent distress, Oriented x3, Cooperative HEENT: Atraumatic Neck: Supple Respiratory: Clear to auscultation bilaterally, Normal air movement Cardiovascular: Regular rate/rhythm, Edema Gastrointestinal: Soft and benign, Non-distended Musculoskeletal: No clubbing, No contractures Integumentary: No rashes, No cyanosis Neurological: Normal speech Blood work reviewed in the chart. Imagings Data: [id number] EXAM DESCRIPTION: CT - Chest Abdomen Pelvis W Cont - 02/10/2024 6:40 am CLINICAL HISTORY: 58 years, Male, left sided rib pain, chest pain, cough COMPARISON: 10/28/2022 TECHNIQUE: Contrast-enhanced images of the chest, abdomen and pelvis were performed utilizing 3 mm slight thickness at 3 mm interval reconstruction from the lung apices to the ischial tuberosities after the administration of IV contrast. In addition multiplanar reformats in the coronal and sagittal plane were obtained and reviewed. An individualized dose optimization technique, Automated Exposure Control, was utilized for the performed procedure. FINDINGS: CHEST: Lower neck/chest wall: Visualized thyroid gland and soft tissues are normal. No adenopathy. Lungs and airways: The lung parenchyma demonstrate minimal haziness perhaps perhaps suggesting air trapping and/or interstitial pulmonary edema. No significant pulmonary nodules and/or masses identified. No focal areas of c onsolidation. Airways: The trachea mainstem bronchus demonstrate to be unremarkable. Pleural: Small trace bilateral pleural effusions with very minimal compressive atelectatic changes posterior CP angles. No evidence for pneumothorax. Hemidiaphragms are normally positioned. Mediastinum and lymph nodes: No significant mediastinal and/or hilar lymphadenopathy. The axillary regions demonstrate to be clear. Heart: Moderate cardiomegaly There are minimal coronary artery calcifications. Thoracic aorta: There is minimal intimal aortic arch calcification with no evidence for aneurysm. Pulmonary arteries: The central pulmonary arteries demonstrate to be within normal limits. No evidence for significant central filling defect to suggest pulmonary embolus. Osseous structures and chest wall: There is anterior spondylosis within the mid/lower thoracic spine. ABDOMEN AND PELVIS: Liver: The liver demonstrated presence of decreased attenuation corresponding to mild fatty infiltration. Gallbladder: The gallbladder demonstrates presence of layering high density structures corresponding to cholelithiasis. No significant inflammatory changes and/or biliary duct dilatation. Adrenal glands: The adrenal glands demonstrate to be normal. Pancreas: The pancreas demonstrate to be normal. Spleen: The spleen demonstrate to be within normal limits. Kidneys: The kidneys demonstrate normal uptake of contrast media. No evidence for nephrolithiasis and/or hydronephrosis. GI: Grossly the unopacified stomach, small bowel and large bowel demonstrate to be within normal limits. No evidence for bowel dilatation and/or free air. The appendix was not visualized. The left-sided colon demonstrate to be decompressed with no gross abnormalities. : The urinary bladder demonstrate to be unremarkable. Genitalia: The prostate gland is normal. Abdominal aorta: The aorta demonstrate demonstrated presence of peripheral atheromatous plaque extending into the aortic bifurcation. Retroperitoneum: There is no retroperitoneal lymphadenopathy. There is a small trace of ascites. Bones: The bones demonstrate to be demineralized with degenerative changes at L2/L3 L5/S1. Soft tissues: There is minimal haziness within the skin/subcutaneous tissue corresponding to edema/early anasarca. IMPRESSION: Small trace bilateral pleural effusions with very minimal compressive atelectatic changes posterior CP angles. Minimal haziness perhaps suggesting air trapping and/or interstitial pulmonary edema. Moderate cardiomegaly with minimal coronary artery calcifications. Cholelithiasis. Mild fatty infiltration of the liver. Small trace of ascites. Minimal haziness within the skin/subcutaneous tissue corresponding to edema/early anasarca. EXAM DESCRIPTION: RAD - Chest Single View - 02/10/2024 1:05 am CLINICAL HISTORY: 58 years Male CHEST PAIN COMPARISON: October 08, 2023 TECHNIQUE: AP view of the skull is obtained. FINDINGS: Cardiac silhouette is enlarged. Central vessels are moderately increased. No pleural effusion on the right. Suspected small layering pleural effusion and left area airspace opacities lower lungs bilaterally left greater than right. No pneumothorax. IMPRESSION: Enlarged heart with moderate central congestion. Atelectatic change versus infiltrate lower lungs bilaterally left greater than right. LEFT VENTRICULAR WALL MOTION: SEVERE GLOBAL HYPOKINESIS DOPPLER/COLOR FLOW: SEE BELOW COMMENTS: 1. SEVERELY DEPRESSED LEFT VENTRICULAR EJECTION FRACTION 20-25% 2. SEVERE GLOBAL HYPOKINESIS 3. MODERATE MITRAL REGURGITATION 4. MODERATE TO SEVERE TRICUSPID REGURGITATION 5. 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 SEVERE DIASTOLIC DYSFUNCTION Conclusions/Impression: Stage II HUNG in the setting of IVC & hypotension concerning for MARLON/ATN complicated CRS CKD IIIa with Proteinuria -No NSAIDs -Continue diuresis as tolerated Hyponatremia -Continue Bumex Hypokalemia resolved Chronic Hypotension -Continue Midodrine Systolic Diastolic CHF, A/C Global Hypokinesis with LVEF 25% Severe Pulmonary HTN with moderate to severe TR Moderate MR Anasarca -Continue Bumex as tolerated DM II with CKD & Hyperglycemia -RISS prn -Recommend DM diet Anemia in chronic illness Iron Deficiency -Monitor H&H -Start daily iron Hospitalist and Cardiology notes reviewed
--- NOTE | 2024-02-14 11:57 | P.PN ---
Subjective Date of Service: 02/14/24 Chief Complaint: Congestive heart failure Subjective: No new changes Review of Systems 10-point ROS is otherwise unremarkable Physical Examination - Vital Signs Temperature: 97.1 F Blood Pressure: 103/60 Pulse: 95 Respirations: 18 Pulse Ox (%): 95 - Physical Exam General: Alert, Oriented x3 HEENT: Atraumatic Neck: Supple Respiratory: Crackles/rales Cardiovascular: Normal S1 S2, Edema Gastrointestinal: Normal bowel sounds Assessment And Plan - Current Problems (Diagnosis) (1) Acute on chronic systolic heart failure Current Visit: No Status: Acute Plan: Bumex 2 mg IV Q 8 hours (please do not hold unless patient systolic BP <80 mmHg) Please monitor input and output closely. correct electrolytes Patient with low BP so it is hard to really get him on goal directed medical therapy agree with midodrine and will continue to monitor (2) CAD (coronary artery disease) Current Visit: No Status: Chronic Plan: patient with history of coronary stents 2 years ago continue ASA 81 mg daily continue Lipitor 40 mg daily will need outpatient stress test. Qualifiers: Coronary Disease-Associated Artery/Lesion type: [place] artery [place] vs. transplanted heart: [place] heart Associated angina: without angina Qualified Code(s): I25.10 - Atherosclerotic heart disease of [place] coronary artery without angina pectoris (3) Hypertension Current Visit: No Status: Chronic Plan: Patient with low BP so it is hard to really get him on goal directed medical therapy agree with midodrine and will continue to monitor Qualifiers: Hypertension type: primary hypertension Qualified Code(s): I10 - Essential (primary) hypertension
[2024-02-14] MEDS: FE SULF/FA/VIT B COMP & C TAB PO SCH (13:13)
[2024-02-14 13:22] VITALS: BP 130/60
[2024-02-14] MEDS ORDERED: DOCUSATE NA 100 MG CAP PO SCH (21:00)
== END 2024-02-14 15:53 | disposition left against medical advice (07) | DRG 291 ==
LOC: ER 00:05 → ERHOLD 04:47 → 4TH 17:42
PROVIDERS: ADMIT Hospitalist; ATTEND Hospitalist
DX: I13.0 Hypertensive heart and chronic kidney disease with heart failure and stage 1 through stage 4 chronic kidney disease, or unspecified chronic kidney disease (principal); I50.43 Acute on chronic combined systolic (congestive) and diastolic (congestive) heart failure; J96.01 Acute respiratory failure with hypoxia; N17.0 Acute kidney failure with tubular necrosis; Z59.00 Homelessness unspecified; E87.1 Hypo-osmolality and hyponatremia; N18.31 Chronic kidney disease, stage 3a; E11.22 Type 2 diabetes mellitus with diabetic chronic kidney disease; E11.65 Type 2 diabetes mellitus with hyperglycemia; D63.1 Anemia in chronic kidney disease; D50.9 Iron deficiency anemia, unspecified; E78.5 Hyperlipidemia, unspecified; E87.6 Hypokalemia; I07.1 Rheumatic tricuspid insufficiency; I95.89 Other hypotension; I27.20 Pulmonary hypertension, unspecified; J44.9 Chronic obstructive pulmonary disease, unspecified; I25.10 Atherosclerotic heart disease of native coronary artery without angina pectoris; I25.2 Old myocardial infarction; F17.210 Nicotine dependence, cigarettes, uncomplicated; Z88.5 Allergy status to narcotic agent; Z95.5 Presence of coronary angioplasty implant and graft; Z53.29 Procedure and treatment not carried out because of patient's decision for other reasons; Z79.82 Long term (current) use of aspirin; Z79.84 Long term (current) use of oral hypoglycemic drugs; Z79.899 Other long term (current) drug therapy; Z91.148 Patient's other noncompliance with medication regimen for other reason
CPT/HCPCS: 36415; 71045; 71260; 74177; 80048; 80053; 80061; 80307; 81001; 83735; 83880; 84100; 84484; 84550; 85025; 85610; 85730; 86140; 93005; 94760; 96374; 96375; 99285; J1940; J2405; J3010; J3535; P9047; Q9967

== ENCOUNTER 2024-05-23 01:40 | Emergency (ER) | payer OTHER ==
--- OUTSIDE RECORDS SUMMARY | 2024-05-23 01:59 | XMS REPORT | Continuity of Care Document ---
Author Name Unknown Address [address] [facility]. 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 Name Role Phone Femi Driver Primary Care Physician Sayra Fox DO Attending Clinician [phone] Sonido Martini DO Attending Clinician [phone] Sunil Whitmore MD Attending Clinician [phone] Nigel Gill MD Attending Clinician [phone] Frank Lr MD Attending Clinician + Cecilia HOROWITZ, Leighann Fuller Attending Clinici an Negin Gill MD Attending Clinician [phone] AMERICO CORTÉS Attending Clinician Unav AMERICO Martinez Attending Clinician Unav FRANK Tapia Attending Clinician Unav Femi Colon Attending Clinician [phone] ISSAC SCHAFFER Attending Clinician Unavailable ISSAC SCHAFFER Attending Clinician Unavailable SHANNON ALVARADO Attending Clinician Unavailable Paola VALE Attending Clinician Unavailable Paola VALE Attending Clinician Unavailable Maurice CARTWRIGHT, Ritika Tripp Attending Clinician Unanancy Lowery, Cardiology - Clear Attending Clinician Ghazala álvaro Josue MD, Vamsi Attending Clinician [phone] Yasir CARTWRIGHT, Nilton Jim Attending Clinician Unavail able LEIGHANN MONTES Attending Clinician Unavailable Nabil HOROWITZ, Bryce Attending Clinician + Debra HOROWITZ, Channing Attending Clinician [phone] Driss HOROWITZ, Ashok Attending Clinician [phone] Tabatha ALTAMIRANO, Vanessa Attending Clinician + [phone] Rohini HOROWITZ, Taylor Attending Clinician [phone] Emma Darling Attending Clinician [phone] Paula HOROWITZ, Danilo Jim Attending Clinician [phone] Unassigned, Cath/Ep Attending Clinician Unavaila RONNELL Teixeira Attending Clinician Unavailable Ronnell Shell DO Attending Clinician [phone] FEMI DISLA Attending Clinician Unavailable DEBBI KIRK Attending Clinician Unavailable ANNITA GRIJALVA Attending Clinician Unavailable ANNITA GRIJALVA Attending Clinician Unavailable DILIP LOUIE Attending Clinician Unavailable Dilip Louie MD Attending Clinician [phone] Doctor Unassigned, [place] Attending Clinician U issac Kirk MD, Debbi Attending Clinician [phone] Margot Castillo Attending Clinician [phone] MARGOT AGRAWAL Attending Clinician Unavaila Daisha Chow Attending Clinician Unavaila ble Lab, Ang - Db Attending Clinician Unavailable Matthew CARTWRIGHT, Shari Guerrero Attending Clinician Unavailab shantell Rucker MD, [facility] Attending Clinician + [phone] PIA AVENDANO Attending Clinician Unavailable NEGIN GILL Attending Clinician Unavailable Annabelle Alba Attending Clinician U issac Avendano MD, Pia Attending Clinician [phone] SAYRA FOX Attending Clinician Unavailab le MILANA, CHOCKALINGAM Admitting Clinician Unav ailable NEGIN GILL Admitting Clinician Unavailable NIGEL GILL Admitting Clinician Unavailable RONNELL SHELL Admitting Clinician Unavailable ANNITA GRIJALVA Admitting Clinician Unavailable DEBBI KIRK Admitting Clinician Unavailable FRANK LR Admitting Clinician Unav Frank Tapia MD Admitting Clinician + SAYRA FOX Admitting Clinician Unavailab le Payers Payer Name Policy Type Policy Number Effective Date Expirati on Date Source 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, NYHA class 3 Disease Active 03-24 00:00: 00 [facility] Hypotensio n due to hypovolemi a Hypotensio n due to hypovolemi a Disease Active 03-24 00:00: 00 [facility] Acute on chronic combined systolic and diastolic CHF (congestiv e heart failure) Acute on chronic combined systolic and diastolic CHF (congestiv e heart failure) Disease Active 03-23 00:00: 00 [facility] Cardiogeni c shock Cardiogeni c shock Disease Active 03-23 00:00: 00 [facility] SOB (shortness of breath) SOB (shortness of breath) Disease Active 4-08 00:00: 00 [facility] HFrEF (heart failure with reduced ejection fraction) HFrEF (heart failure with reduced ejection fraction) Disease Active 7- 00:00: 00 [facility] Cigarette smoker Cigarette smoker Disease Active 05-21 00:00: 00 [facility] Bilateral inguinal hernia without obstructio n or gangrene, recurrence not specified Bilateral inguinal hernia without obstructio n or gangrene, recurrence not specified Disease Active 6-15 00:00: 00 [facility] Type 2 diabetes mellitus without complicati on, without long-term current use of insulin Type 2 diabetes mellitus without complicati on, without long-term current use of insulin Disease Active 3- 00:00: 00 [facility] Obesity (BMI 30-39.9) Obesity (BMI 30-39.9) Disease Active 2-25 00:00: 00 [facility] Heart failure Heart failure Disease Active 2-24 00:00: 00 [facility] CAD in [place] artery CAD in [place] artery Disease Active 12-21 00:00: 00 [facility] Cardiomega ly Cardiomega ly Disease Active 12-21 00:00: 00 [facility] CHF (congestiv e heart failure) CHF (congestiv e heart failure) Disease Active 12-21 00:00: 00 [facility] Cholelithi asis Cholelithi asis Disease Active 12-21 00:00: 00 [facility] Dyslipidem ia Dyslipidem ia Disease Active 12-21 00:00: 00 [facility] H/O heart artery stent H/O heart artery stent Disease Active 12-21 00:00: 00 Overview: Formattin g of this note might be different from the original. x2 right [facility] HTN (hypertens ion) HTN (hypertens ion) Disease Active 12-21 00:00: 00 [facility] Unilateral inguinal hernia, without obstructio n or gangrene, not specified as recurrent Unilateral inguinal hernia, without obstructio n or gangrene, not specified as recurrent Disease Active 12-21 00:00: 00 Overview: Formattin g of this note might be different from the original. bilateral [facility] No known active problems No known active problems Disease [facility] Allergies, Adverse Reactions, Alerts Allergy Name Allergy Type Status Severity Reaction(s) Onset Date Inactive Date Treating Clinician Comments Source MORPHINE DRUG INGREDI Active N/V 08-06 00:00: 00 [facility] Morphine Propensi ty to adverse reaction s Active Nausea and/or Vomiting 2016-0 08-06 00:00: 00 [facility] Family Member Diagnosis Comments Start Date Stop Date Sourc e Maternal grandmother Lung Cancer [facility] Natural mother Coronary Heart Disease [facility] Social History Social Habit Start Date Stop Date Quantity Comments Source History SDOH Social Connections Get Together [facility] History SDOH [facility] Social Connections Membership [facility] History SDOH Social Connections Meetings [facility] Gender identity [facility] Alcoholic beverage intake 2024-05-21 00:00:00 2024-05-21 00:00:00 .14 /d [facility] Alcohol intake 2024-03-06 00:00:00 2024-03-06 00:00:00 .14 /d [facility] History of Social function 2023-07-06 00:00:00 2023-07-06 00:00:[address] [facility] Exposure to SARS-CoV-2 (event) 2023-04-08 00:00:00 2023-04-18 12:29:[address] [facility] History SDOH Financial 2023-01-23 00:00:00 2023-01-23 00:00:[address] [facility] History SDOH Food Worry 2023-01-23 00:00:00 2023-01-23 00:00:[address] [facility] History SDOH Food Scarcity 2023-01-23 00:00:00 2023-01-23 00:00:[address] [facility] History SDOH Transport Med 2023-01-23 00:00:00 2023-01-23 00:00:[address] [facility] History SDOH Transport Non-Med 2023-01-23 00:00:00 2023-01-23 00:00:[address] [facility] History SDOH Alcohol Frequency 2023-01-22 00:00:00 2023-01-22 00:00:[address] [facility] History SDOH Alcohol Std Drinks 2023-01-22 00:00:00 2023-01-22 00:00:[address] [facility] History SDOH Alcohol Binge 2023-01-22 00:00:00 2023-01-22 00:00:[address] [facility] History SDOH Social Connections Phone 2023-01-22 00:00:00 2023-01-22 00:00:[address] [facility] History SDOH Social Connections Living 2023-01-22 00:00:00 2023-01-22 00:00:[address] [facility] History SDOH Physical Activity DPW 2023-01-22 00:00:00 2023-01-22 00:00:[address] [facility] History SDOH Physical Activity MPS 2023-01-22 00:00:00 2023-01-22 00:00:[address] [facility] Cigarettes smoked current (pack per day) - Reported 2023-01-20 00:00:00 2023-01-20 00:00:[address] [facility] Cigarette pack-years 2023-01-20 00:00:00 2023-01-20 00:00:[address] [facility] Tobacco use and exposure 2023-01-20 00:00:00 2023-01-20 00:00:00 Smokeless tobacco non-user [facility] Alcohol Comment 2022-12-21 00:00:00 2022-12-21 00:00:[address] [facility] History of tobacco use 2018-09-15 00:00:[address] [facility] Sex assigned at 1965 00:00:00 1965 00:00:[address] [facility] Smoking Status Start Date Stop Date Source Smokes tobacco daily 2023-01-20 00:00:[address] [facility] Ex-smoker 2019-09-15 00:00:00 2019-09-15 [facility]00[facility]00 [facility] Medications Ordered Medication Name Filled Medication Name Start Date Stop Date Current Medication? Ordering Clinician Indication Dosage Frequency Signature (SIG) Comments Components Source lidocaine-r acepinep-te tracaine (L.E.T. (LIDO-EPINE PH-TETRA)) 4-0.05-0.5 % topical gel 3 mL 05-21 20:00: 00 05-21 19:47 :00 No 3mL 3 mL, Topical, ONCE, 1 dose, On Sun05/21/24 at 1500, Routine [facility] clopidogreL 75 mg tablet 05-10 00:00: 00 Yes [id number] 75mg Take 1 tablet by mouth in the morning. [facility] metOLazone 2.5 mg tablet 05-10 00:00: 00 Yes [id number] 2.5mg Take 1 tablet by mouth every Sunday, and Sunday. [facility] amoxicillin -clavulanat e 875-125 mg per tablet 05-09 00:00: 00 Yes [id number] 1{tbl} Take 1 tablet by mouth every 12 (twelve) hours. [facility] bumetanide 1 mg tablet 05-09 00:00: 00 Yes [id number] 5mg Take 5 tablets by mouth in the morning and 5 tablets at noon and 5 tablets in the evening. [facility] doxycycline hyclate 100 mg capsule 05-09 00:00: 00 Yes [id number] 100mg Take 1 capsule by mouth every 12 (twelve) hours. [facility] KCL 20 mEq tablet 05-09 00:00: 00 Yes [id number] 80meq Take 4 tablets by mouth in the morning and 4 tablets at noon and 4 tablets in the evening. [facility] methocarbam oL 500 mg tablet 05-09 00:00: 00 Yes [id number] 500mg Take 1 tablet by mouth 4 (four) times daily as needed (cramps). [facility] mexiletine 150 mg capsule 05-09 00:00: 00 Yes [id number] 150mg Take 1 capsule by mouth every 12 (twelve) hours. [facility] spironolact one 25 mg tablet 05-09 00:00: 00 Yes [id number] 25mg Take 1 tablet by mouth in the morning and 1 tablet in the evening. [facility] aspirin 81 mg EC tablet 05-09 00:00: 00 Yes [id number] 81mg Take 1 tablet by mouth in the morning. [facility] atorvastati n 80 mg tablet 05-09 00:00: 00 Yes [id number] 80mg Take 1 tablet by mouth at bedtime. [facility] albuterol 90 mcg/actuati on inhaler 05-09 00:00: 00 Yes [id number] 2{puff} Inhale 2 Puffs every 4 (four) hours as needed for Wheezing or Shortness of Breath. [facility] aquaphilic ointment ointment 05-09 00:00: 00 Yes [id number] Apply to area(s) 2 (two) times daily. [facility] Blood-Gluco se Meter (ACCU-CHEK GUIDE GLUCOSE METER) [facility]: 00 Yes [id number] Use as directed [facility] Lancets Misc 05-09 00:00: 00 Yes [id number] Use as directed [facility] blood sugar diagnostic (ACCU-CHEK GUIDE TEST STRIPS) strip 05-09 00:00: 00 Yes [id number] Use as directed [facility] Insulin Naoma, Disposable, (BD INSULIN PEN NEEDLE UF) 31 gauge x 5/16" Ndle 05-09 00:00: 00 Yes [id number] Use as directed [facility] Insulin Glargine (LANTUS SOLOSTAR U-100 INSULIN) 100 unit/mL (3 mL) injection 05-09 00:00: 00 Yes [id number] 33U inject 33 Units under the skin with evening meal. [facility] insulin lispro (HUMALOG KWIKPEN INSULIN) 100 unit/mL pen injector 05-09 00:00: 00 Yes [id number] Inject 6 units before breakfast, 6 units before lunch, and 4 units before dinner. [facility] milrinone in 5 % dextrose infusion RTU 05-09 00:00: 00 Yes [id number] 20.7ug/ min 20.7 mcg/min by IV Infusion route CONTINUOUS . [facility] chlorhexidi ne 0.12 % mouthwash 05-09 00:00: 00 05-26 04:59 :00 Yes [id number] 15mL Swish and spit out 15 mL in the morning and 15 mL in the evening. Do all this for 3 days. [facility] HYDROcodone -acetaminop hen 5-325 mg tablet 05-09 00:00: 00 05-17 04:59 :00 Yes [id number] 1{tbl} Take 1 tablet by mouth every 6 (six) hours as needed for Pain (scale 7-10) for up to 7 days. Indication s: acute pain [facility] KCL (KLOR-CON M20) tablet 40 mEq 04-17 23:00: 00 04-18 04:59 :00 Yes 40meq 40 mEq, Oral, Q2H, 3 doses, First dose on Sun04/17/24 at 1800, Last dose on Sun04/17/24 at 2200, Routine [facility] potassium chloride in water (KCL) 20 mEq/100 mL RTU IVPB 20 mEq 04-17 22:00: 00 04-18 05:59 :00 Yes 20meq 20 mEq, IV Piggyback, Q2H, 4 doses, First dose on Sun04/17/24 at 1700, Last dose on Sun04/17/24 at 2300, 100 mL [facility] chlorothiaz wyatt (DIURIL) 500 mg in NaCl 0.9% (NS) 50 mL 04-16 20:45: 00 Yes 500mg 500 mg, IV Piggyback, DAILY, First dose on Sun04/16/24 at 1545, Until Discontinu ed, Administer over 15 Minutes, 50 mL, membership administrator approving Restricted medication : NEGIN GILL [facility] bumetanide (BUMEX) 10 mg in D5W 50 mL IV infusion 04-16 20:45: 00 Yes 3mg/h 3 mg/hr (15 mL/hr), IV Infusion, CONTINUOUS , Starting on Sun04/16/24 at 1545 [facility] milrinone in 5 % dextrose (PRIMACOR) 20 mg/100 mL (200 mcg/mL) infusion RTU 04-16 20:00: 00 Yes .25ug/k g/min 0.25 mcg/kg/min ?104.8 kg (7.86 mL/hr), IV Infusion, CONTINUOUS , Starting on Sun04/16/24 at 1500, 1. Dose to be adjusted by physician or provider. 2. Notify MD if MAP < 65 mmHG. 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 04-16 16:24: 27 04-16 16:59 :41 No ONCE INTRA PROCEDURE, Starting on Sun04/16/24 at 1124, Until Sun04/16/24 at 1159, Routine, CV Intraproce dure [facility] nitroglycer in (TRIDIL) 2 mg in 10 mL D5W for Cardiac Cath 04-16 15:30: 13 04-16 16:59 :41 No ONCE INTRA PROCEDURE, Starting on Sun04/16/24 at 1030, Until Sun04/16/24 at 1159, Routine, CV Intraproce dure [facility] heparin 1,000 unit/mL injection 04-16 15:29: 56 04-16 16:59 :41 No ONCE INTRA PROCEDURE, Starting on Sun04/16/24 at 1029, Until Sun04/16/24 at 1159, Routine, CV Intraproce dure [facility] FENTanyl PF (SUBLIMAZE (PF)) injection 04-16 15:21: 22 04-16 16:59 :41 No ONCE INTRA PROCEDURE, Starting on Sun04/16/24 at 1021, Until Sun04/16/24 at 1159, Routine, CV Intraproce dure [facility] lidocaine 1% (XYLOCAINE) 10 mg/mL (1 %) injection 04-16 15:20: 56 04-16 16:59 :41 No ONCE INTRA PROCEDURE, Starting on Sun04/16/24 at 1020, Until Sun04/16/24 at 1159, Routine, CV Intraproce dure [facility] heparin flush (PF) 2,000 units in 1000 mL NS RTU injection 04-15 19:08: 30 Yes 22mL/h 22 mL/hr, INTRA-CATH ETER, PRN, PA catheter, Starting on Sun04/15/24 at 1408, CV Recovery to Floor, Infuse via PA Catheter. Heparinize d Solution 2 units/mL concentrat ion (unless HIT is suspected) at a rate of 22 cc/hr to keep the introducer patent. [facility] insulin lispro (human) (HumaLOG U-100) injection 9 Units 04-14 22:00: 00 Yes 9U 9 Units, Subcutaneo us, TID MEALS, First dose (after last modificati on) on 04/14/24 at 1700, Until Discontinu ed, Routine [facility] insulin glargine (LANTUS U-100) injection 27 Units 04-14 21:00: 00 Yes 27U 27 Units, Subcutaneo us, Q24H, First dose (after last modificati on) on Sun04/14/24 at 1600, Until Discontinu ed, Routine [facility] Sliding Scale Insulin - Lispro (HumaLOG) 04-12 17:00: 00 Yes Subcutaneo us, TID MEALS+HS, First dose (after last modificati on) on 04/12/24 at 1200, Until Discontinu ed, Routine [facility] heparin 1,000 unit/mL (10 mL) - dialysis catheter care 04-11 21:15: 09 Yes 2000U PRN - SEE INSTRUCTIO NS, Starting on Sun04/11/24 at 1615, Until Discontinu ed, Routine, For Priming of Ports: After initial saline flush, prime each port with heparin according to the priming volume listed on each catheter port for catheter lock. [facility] heparin 1,000 unit/mL (10 mL) - dialysis catheter care 04-11 01:12: 43 Yes 2000U PRN - SEE INSTRUCTIO NS, Starting on Sun04/10/24 at 2012, Until Discontinu ed, Routine, For Priming of Ports: After initial saline flush, prime each port with heparin according to the priming volume listed on each catheter port for catheter lock. [facility] heparin (porcine) injection 5,000 Units 04-10 01:00: 00 Yes 5000U 5,000 Units, Subcutaneo us, Q12H, First dose on Sun04/09/24 at 2000, Until Discontinu ed, Routine [facility] heparin 1,000 unit/mL (10 mL) - dialysis catheter care 04-10 00:36: 35 Yes 2000U PRN - SEE INSTRUCTIO NS, Starting on Sun04/09/24 at 1936, Until Discontinu ed, Routine, For Priming of Ports: After initial saline flush, prime each port with heparin according to the priming volume listed on each catheter port for catheter lock. [facility] chlorothiaz wyatt (DIURIL) 500 mg in NaCl 0.9% (NS) 50 mL 04-09 14:00: 00 Yes 500mg 500 mg, IV Piggyback, DAILY, First dose on Sun04/09/24 at 0900, Until Discontinu ed, Administer over 15 Minutes, 50 mL, membership administrator approving Restricted medication : NEGIN GILL [facility] bumetanide (BUMEX) 10 mg in D5W 50 mL IV infusion 04-08 18:15: 00 Yes 3mg/h 3 mg/hr (15 mL/hr), IV Infusion, CONTINUOUS , Starting on Sun04/08/24 at 1315 [facility] milrinone in 5 % dextrose (PRIMACOR) 20 mg/100 mL (200 mcg/mL) infusion RTU 04-08 17:15: 00 Yes .375ug/ kg/min 0.375 mcg/kg/min ?104.8 kg (11.79 mL/hr), IV Infusion, CONTINUOUS , Starting on Sun04/08/24 at 1215, 1. Dose to be adjusted by physician or provider. 2. Notify MD if MAP < 65 mmHG. [facility] heparin flush (PF) 2,000 units in 1000 mL NS RTU injection 04-07 21:46: 30 Yes 22mL/h 22 mL/hr, INTRA-CATH ETER, PRN, PA catheter, Starting on Sun04/07/24 at 1646, CV Recovery to Floor, Infuse via PA Catheter. Heparinize d Solution 2 units/mL concentrat ion (unless HIT is suspected) at a rate of 22 cc/hr to keep the introducer patent. [facility] lidocaine 1% (PF) (XYLOCAINE) injection 04-07 20:20: 04 04-07 21:39 :18 No ONCE INTRA PROCEDURE, Starting on Sun04/07/24 at 1520, Until Sun04/07/24 at 1639, Routine, CV Intraproce dure [facility] insulin glargine (LANTUS U-100) injection 10 Units 04-06 21:00: 00 Yes 10U 10 Units, Subcutaneo us, Q24H, First dose (after last modificati on) on Sun04/06/24 at 1600, Until Discontinu ed, Routine [facility] ampicillin (POLYCILLIN -N) 2,000 mg in NaCl 0.9% (NS) 100 mL VIAL-MATE 04-06 19:00: 00 04-09 18:59 :00 Yes 2000mg 2,000 mg, IV Piggyback, Q6H ABX, 12 doses, First dose (after last modificati on) on Sun04/06/24 at 1400, Last dose on Sun04/09/24 at 0800, Administer over 30 Minutes, 100 mL, Reason for Anti-Infec tive: Documented Infection, Documented Infection Site: Blood, Duration of Therapy: 7 days [facility] insulin lispro (human) (HumaLOG U-100) injection 3 Units 04-06 17:00: 00 Yes 3U 3 Units, Subcutaneo us, TID MEALS, First dose (after last modificati on) on Sun04/06/24 at 1200, Until Discontinu ed, Routine [facility] HYDROcodone -acetaminop hen (NORCO 5) 5-325 mg tablet 1 tablet 04-05 20:38: 07 Yes 1{tbl} 1 tablet, Oral, Q6HPRN, Starting on Sun04/05/24 at 1538, Until Discontinu ed, Routine, Pain (scale 4-6), Pain (scale 7-10) [facility] artificial tears(hypro mellose) (ISOPTO-TEA RS) 0.5 % ophthalmic drops 2 Drop 04-05 20:35: 20 Yes 2[drp] 2 Drop, Both Eyes, PRN, Starting on Sun04/05/24 at 1535, Until Discontinu ed, Routine, Dry eyes [facility] bumetanide (BUMEX) injection 4 mg 04-02 01:00: 00 Yes 4mg 4 mg, Slow IV Push, BID, First dose (after last modificati on) on Sun04/01/24 at 2000, Until Discontinu ed, Routine [facility] insulin lispro (human) (HumaLOG U-100) injection 3 Units 04-01 22:00: 00 Yes 3U 3 Units, Subcutaneo us, TID MEALS, First dose (after last modificati on) on Sun04/01/24 at 1700, Until Discontinu ed, Routine [facility] insulin glargine (LANTUS U-100) injection 9 Units 04-01 21:00: 00 Yes 9U 9 Units, Subcutaneo us, Q24H, First dose (after last modificati on) on Sun04/01/24 at 1600, Until Discontinu ed, Routine [facility] ceFAZolin (ANCEF) 1,000 mg in NaCl 0.9% (NS) 100 mL VIAL-MATE 04-01 15:00: 00 04-06 14:59 :00 Yes 1000mg 1,000 mg, IV Piggyback, Q8H ABX, 15 doses, First dose on Sun04/01/24 at 1000, Last dose on Sun04/06/24 at 0200, Administer over 30 Minutes, 100 mL, Reason for Anti-Infec tive: Empiric Therapy for Suspected Infection, Empiric Therapy Site: Skin / Soft tissue, Duration of therapy: 5 days [facility] KCL (KLOR-CON M20) tablet 40 mEq 04-01 01:00: 00 Yes 40meq 40 mEq, Oral, BID, First dose on Sun03/31/24 at 1999, Until Discontinu ed, Routine [facility] Sliding Scale Insulin - Lispro (HumaLOG) 03-28 22:00: 00 Yes Subcutaneo us, TID MEALS+HS, First dose (after last modificati on) on Sun03/28/24 at 1700, Until Discontinu ed, Routine [facility] spironolact one (ALDACTONE) tablet 25 mg 03-28 14:45: 00 Yes 25mg 25 mg, Oral, DAILY, First dose (after last modificati on) on Sun03/28/24 at 0945, Until Discontinu ed, Routine [facility] hydrALAZINE (APRESOLINE ) tablet 25 mg 03-28 03:00: 00 Yes 25mg 25 mg, Oral, Q8H, First dose (after last modificati on) on Sun03/27/24 at 2200, Until Discontinu ed, Routine [facility] sennosides (SENOKOT) tablet 8.6 mg 03-27 01:00: 00 Yes 8.6mg 8.6 mg, Oral, DAILY, First dose (after last modificati on) on Sun03/26/24 at 1999, Until Discontinu ed, Routine [facility] polyethylen e glycol 3350 powder 17 g 03-27 01:00: 00 Yes 17g 17 g, Oral, DAILY, First dose (after last modificati on) on Sun03/26/24 at 2000, Until Discontinu ed, Routine [facility] pantoprazol e (PROTONIX) EC tablet 40 mg 03-25 19:30: 00 Yes 40mg 40 mg, Oral, DAILY, First dose on Sun03/25/24 at 1430, Until Discontinu ed, Routine [facility] ipratropium -albuteroL (DUONEB) 0.5 mg-3 mg(2.5 mg base)/3 mL nebulizer solution 3 mL 03-25 13:15: 00 Yes 3mL 3 mL, Inhalation , TID, First dose on Sun03/25/24 at 0815, Until Discontinu ed, Routine [facility] aspirin EC tablet 81 mg 03-24 14:00: 00 Yes 81mg 81 mg, Oral, DAILY, First dose on Sun03/24/24 at 0900, Until Discontinu ed, Routine [facility] dapaglifloz in propanediol (FARXIGA) tablet 10 mg 03-24 14:00: 00 Yes 10mg 10 mg, Oral, DAILY, First dose on Sun03/24/24 at 0900, Until Discontinu ed, Routine, Is this a home medication ? Yes, Has this patient brought their own medication ? No, Pharmacy will dispense the medication from inpatient. Pharmacy will dispense the medication from inpatient. [facility] nicotine (NICODERM) 21 mg/24 hr patch 1 Patch 03-24 04:45: 00 Yes 1{patch } 1 Patch, Topical, Administer over 24 Hours, Q24H, First dose on Sun03/23/24 at 2345, Until Discontinu ed, Routine [facility] FENTanyl PF (SUBLIMAZE (PF)) injection 12.5 mcg 03-24 02:01: 36 Yes 12.5ug 12.5 mcg, Slow IV Push, Q4HPRN, Starting on Sun03/23/24 at 2101, Until Discontinu ed, Routine, Pain (scale 7-10) [facility] HYDROcodone -acetaminop hen (NORCO 5) 5-325 mg tablet 1 tablet 03-24 02:01: 07 Yes 1{tbl} 1 tablet, Oral, Q6HPRN, Starting on Sun03/23/24 at 2101, Until Discontinu ed, Routine, Pain (scale 4-6) [facility] atorvastati n (LIPITOR) tablet 80 mg 03-24 02:00: 00 Yes 80mg 80 mg, Oral, QHS, First dose on Sun03/23/24 at 2100, Until Discontinu ed, Routine [facility] enoxaparin (LOVENOX) injection 40 mg 03-23 22:00: 00 Yes 40mg 40 mg, Subcutaneo us, DAILY, First dose on Sun03/23/24 at 1700, Until Discontinu ed, Routine [facility] glucagon (GLUCAGEN DIAGNOSTIC KIT) injection 1 mg 03-23 21:56: 48 Yes 1mg 1 mg, Intramuscu lar, PRN, Starting on Sun03/23/24 at 1656, Until Discontinu ed, LETITIA, Blood Glucose < or = 70 mg/dL and patient is NPO, unable to swallow or has mental changes. [facility] dextrose 50 % in water (D50W) injection 25 mL 03-23 21:56: 48 Yes 25mL 25 mL, Slow IV Push, PRN, Starting on Sun03/23/24 at 1656, Until Discontinu ed, LETITIA, Blood Glucose < or = 70 mg/dL and patient is NPO, unable to swallow or has mental status changes. [facility] ondansetron (ZOFRAN (PF)) injection 4 mg 03-23 21:56: 41 Yes 4mg 4 mg, Slow IV Push, Q6HPRN, Starting on Sun03/23/24 at 1656, Until Discontinu ed, Routine, Nausea and Vomiting (N/V) [facility] acetaminoph en (TYLENOL) tablet 650 mg 03-23 21:56: 31 Yes 650mg 650 mg, Oral, Q6HPRN, Starting on Sun03/23/24 at 1656, Until Discontinu ed, Routine, Pain (scale 1-3) [facility] iopamidol (ISOVUE 370-500 mL) injection 85 mL 03-03 21:25: 00 03-03 21:45 :00 No [id number] 85mL 85 mL, Intravenou s, ONCE, 1 dose, On Sun03/03/24 at 1645, Routine [facility] furosemide (LASIX) injection 40 mg 03-03 21:00: 00 03-03 21:06 :00 No 40mg 40 mg, IV Push, ONCE, 1 dose, On Sun03/03/24 at 1600, LETITIA [facility] furosemide 80 mg tablet 03-03 00:00: 00 Yes [id number] 80mg Take 1 tablet by mouth every morning. [facility] metoprolol succinate XL 25 mg 24 hr tablet 03-03 00:00: 00 Yes [id number] 37.5mg Take 1.5 tablets by mouth in the morning and 1.5 tablets in the evening. [facility] losartan 25 mg tablet 03-03 00:00: 00 Yes [id number] 25mg Take 1 tablet by mouth in the morning. [facility] atorvastati n 80 mg tablet 03-03 00:00: 00 Yes [id number] 80mg Take 1 tablet by mouth at bedtime. [facility] losartan (COZAAR) tablet 25 mg 07-17 14:00: 00 07-16 20:05 :13 No [id number] 25mg [facility] losartan 25 mg tablet 07-16 00:00: 00 03-03 00:00 :00 No [id number] 25mg Take 1 tablet by mouth in the morning. [facility] FENTanyl PF (SUBLIMAZE (PF)) injection 25 mcg 07-06 20:48: 25 Yes 25ug 25 mcg, Slow IV Push, Q5MIN PRN, 4 doses, Starting on Sun07/06/23 at 1548, Until Discontinu ed, Routine, Pain (scale 4-6), PACU [facility] ondansetron (ZOFRAN (PF)) injection 4 mg 07-06 20:48: 25 Yes 4mg 4 mg, Slow IV Push, PRN, 1 dose, Starting on Sun07/06/23 at 1548, Until Discontinu ed, Routine, Nausea and Vomiting (N/V), PACU [facility] bupivacaine (preserv free) (SENSORCAIN E MPF) 0.25 % (2.5 mg/mL) 30 mL, BUPivacaine liposome (PF) (EXPAREL (PF)) 1.3 % (13.3 mg/mL) 266 mg 07-06 18:25: 00 07-06 21:05 :18 No PRN, Starting on Sun07/06/23 at 1325, Intra-op [facility] sodium chloride 0.9 % irrigation solution 07-06 18:24: 00 07-06 21:05 :18 No PRN, Starting on Sun07/06/23 at 1324, Until Sun07/06/23 at 1605, Intra-op [facility] lactated ringers IV infusion 1,000 mL 07-06 15:30: 00 07-06 15:32 :00 No 1000mL at 42 mL/hr, 1,000 mL, IV Infusion, ONCE, 1 dose, On Sun07/06/23 at 1030, Routine, DSU Pre-op [facility] HYDROcodone -acetaminop hen (NORCO) 10-325 mg tablet 07-06 00:00: 00 07-14 04:59 :00 No [id number] 1{tbl} Take 1 tablet by mouth every 6 (six) hours as needed for Pain (scale 7-10) for up to 7 days. Indication s: acute pain [facility] mg tablet 15 00:00: 00 Yes [id number] 10mg Take 1 tablet by mouth in the morning. [facility] SITagliptin phosphate 100 mg tablet 04-12 00:00: 00 04-12 00:00 :00 No [id number] 100mg Take 1 tablet by mouth in the morning. [facility] metoprolol succinate XL (TOPROL XL) tablet 37.5 mg 01-25 02:00: 00 Yes 37.5mg 37.5 mg, Oral, BID, First dose (after last modificati on) on Sun01/24/23 at 2000, Until Discontinu ed, Routine [facility] lisinopriL (PRINIVIL,Z ESTRIL) tablet 2.5 mg 01-24 15:00: 00 Yes 2.5mg 2.5 mg, Oral, DAILY, First dose (after last modificati on) on Sun01/24/23 at 0900, Until Discontinu ed, Routine [facility] metoprolol succinate XL (TOPROL XL) tablet 25 mg 01-24 14:00: 00 Yes 25mg 25 mg, Oral, BID, First dose on Sun01/24/23 at 0800, Until Discontinu ed, Routine [facility] metoprolol tartrate (LOPRESSOR) tablet 25 mg 01-24 02:00: 00 01-24 13:59 :00 No 25mg 25 mg, Oral, BID, 1 dose, First dose on Sun01/23/23 at 2000, Routine [facility] furosemide 80 mg tablet 01-24 00:00: 00 03-03 00:00 :00 No [id number] 80mg Take 1 tablet by mouth every morning. [facility] furosemide 20 mg tablet 01-24 00:00: 00 03-03 00:00 :00 No [id number] 40mg Take 2 tablets by mouth every evening. [facility] metoprolol succinate XL 25 mg 24 hr tablet 01-24 00:00: 00 03-03 00:00 :00 No [id number] 37.5mg Take 1.5 tablets by mouth in the morning and 1.5 tablets in the evening. [facility] dapaglifloz in (FARXIGA) 10 mg tablet 01-24 00:00: 00 05-10 00:00 :00 No [id number] 10mg Take 1 tablet by mouth in the morning. [facility] spironolact one 25 mg tablet 01-24 00:00: 00 01-24 00:00 :00 No [id number] 12.5mg Take 0.5 tablets by mouth in the morning. [facility] metFORMIN 500 mg tablet 01-24 00:00: 00 01-24 00:00 :00 No [id number] Take 1 tablet by mouth daily for 7 days, THEN 1 tablet 2 (two) times daily with meals for 7 days, THEN 2 tablets 2 (two) times daily with meals for 30 days. [facility] aspirin 81 mg EC tablet 01-23 00:00: 00 Yes [id number] 81mg Take 1 tablet by mouth in the morning. [facility] furosemide (LASIX) tablet 80 mg 01-22 23:00: 00 Yes 80mg 80 mg, Oral, QAM+PM, First dose on Sun01/22/23 at 1700, Until Discontinu ed, Routine [facility] metoprolol tartrate 25 mg tablet 01-22 15:15: 37 01-22 00:00 :00 No 25mg Take 25 mg by mouth in the morning and 25 mg in the evening. [facility] iopamidol (ISOVUE 370-500 mL) injection 01-22 14:51: 43 01-22 15:05 :08 No ONCE INTRA PROCEDURE, Starting on Sun01/22/23 at 0851, Until Sun01/22/23 at 0905, Routine, CV Intraproce dure [facility] NaCl 0.9% (NS) bolus infusion 01-22 14:44: 02 01-22 14:44 :02 No CONTINUOUS PRN, Starting on Sun01/22/23 at 0844, Until Discontinu ed, STAT, CV Intraproce dure [facility] PHENYLephri ne 1000 mcg/10 mL in 0.9% NaCl syringe 01-22 14:43: 22 01-22 15:05 :08 No ONCE INTRA PROCEDURE, Starting on Sun01/22/23 at 0843, Until Sun01/22/23 at 0905, Routine, CV Intraproce dure [facility] nitroglycer in (TRIDIL) 2 mg in 10 mL D5W for Cardiac Cath 01-22 14:12: 33 01-22 15:05 :08 No ONCE INTRA PROCEDURE, Starting on Sun01/22/23 at 0812, Until Sun01/22/23 at 0905, Routine, CV Intraproce dure [facility] heparin 1,000 unit/mL injection 01-22 14:12: 19 01-22 15:05 :08 No ONCE INTRA PROCEDURE, Starting on Sun01/22/23 at 0812, Until Sun01/22/23 at 09, Routine, CV Intraproce dure [facility] midazolam (VERSED) injection 01-22 13:54: 00 01-22 15:05 :08 No ONCE INTRA PROCEDURE, Starting on Sun01/22/23 at 0754, Until Sun01/22/23 at 09, Routine, CV Intraproce dure [facility] FENTanyl PF (SUBLIMAZE (PF)) injection 01-22 13:54: 00 01-22 15:05 :08 No ONCE INTRA PROCEDURE, Starting on Sun01/22/23 at 0754, Until Sun01/22/23 at 09, Routine, CV Intraproce dure [facility] lidocaine 1% (PF) (XYLOCAINE) injection 01-22 13:53: 00 01-22 15:05 :08 No ONCE INTRA PROCEDURE, Starting on Sun01/22/23 at 0753, Until Sun01/22/23 at 09, Routine, CV Intraproce dure [facility] carvediloL 3.125 mg tablet 01-22 00:00: 00 Yes [id number] 3.125mg Take 1 tablet by mouth in the morning and 1 tablet in the evening. Take with meals. [facility] clopidogreL 75 mg tablet 01-22 00:00: 00 Yes [id number] 75mg Take 1 tablet by mouth in the morning. [facility] lisinopriL 2.5 mg tablet 01-22 00:00: 00 Yes [id number] 2.5mg Take 1 tablet by mouth in the morning. [facility] dapaglifloz in (FARXIGA) 10 mg tablet 01-22 00:00: 00 Yes [id number] 10mg Take 1 tablet by mouth in the morning. [facility] nicotine 21 mg/24 hr patch 01-22 00:00: 00 Yes [id number] 1{patch } Apply 1 Patch to area(s) every 24 (twenty-fo ur) hours. [facility] furosemide 80 mg tablet 01-22 00:00: 00 Yes [id number] 80mg Take 1 tablet by mouth every morning and evening. [facility] atorvastati n 80 mg tablet 01-22 00:00: 00 03-03 00:00 :00 No [id number] 80mg Take 1 tablet by mouth at bedtime. [facility] carvediloL (COREG) tablet 3.125 mg 01-21 23:00: 00 01-23 16:48 :12 No 3.125mg 3.125 mg, Oral, BID MEALS, First dose on 01/21/23 at 1700, Until Discontinu ed, Routine [facility] atorvastati n (LIPITOR) tablet 80 mg 01-21 03:00: 00 Yes 80mg 80 mg, Oral, QHS, First dose (after last modificati on) on 01/20/23 at 2100, Until Discontinu ed, Routine [facility] lidocaine (LIDODERM) 5 % (700 mg/patch) patch 1 Patch 01-20 15:00: 00 Yes 1{patch } 1 Patch, Topical, Administer over 12 Hours, DAILY, First dose (after last reorder) on 01/20/23 at 0900, Until Discontinu ed, Routine [facility] clopidogreL (PLAVIX) 75 mg tablet 75 mg 01-20 15:00: 00 Yes 75mg 75 mg, Oral, DAILY, First dose on 01/20/23 at 0900, Until Discontinu ed, Routine [facility] aspirin EC tablet 81 mg 01-20 15:00: 00 Yes 81mg 81 mg, Oral, DAILY, First dose on 01/20/23 at 0900, Until Discontinu ed [facility] KCL (KLOR-CON M20) tablet 40 mEq 01-20 13:30: 00 01-20 14:50 :00 No 40meq 40 mEq, Oral, ONCE, 1 dose, On 01/20/23 at 0730, Routine [facility] dextrose 10% (D10W) bolus infusion 250 [...] blood glucose is < 80 mg/dL, repeat.
[facility] glucagon (GLUCAGEN DIAGNOSTIC KIT) injection 1 mg 01-20 13:11: 00 Yes 1mg 1 mg, Intramuscu lar, PRN, Starting on 01/20/23 at 0711, Until Discontinu ed, LETITIA, Blood Glucose < or = 70 mg/dL and patient is NPO, unable to swallow or has mental changes. [facility] melatonin (MELATIN) tablet 3 mg 01-20 03:00: 00 Yes 3mg 3 mg, Oral, QHS, First dose on Sun01/19/23 at 2100, Until Discontinu ed, Routine [facility] atorvastati n (LIPITOR) tablet 40 mg 01-20 03:00: 00 01-20 16:47 :53 No 40mg 40 mg, Oral, QHS, First dose on Sun01/19/23 at 2100, Until Discontinu ed, Routine [facility] enoxaparin (LOVENOX) injection 40 mg 01-19 23:00: 00 Yes 40mg 40 mg, Subcutaneo us, DAILY, First dose on Sun01/19/23 at 1700, Until Discontinu ed, Routine [facility] lidocaine (LIDODERM) 5 % (700 mg/patch) patch 1 Patch 01-19 20:30: 00 01-20 09:42 :00 No 1{patch } 1 Patch, Topical, Administer over 12 Hours, ONCE, 1 dose, On Sun01/19/23 at 1430, Routine [facility] perflutren lipid microsphere s (DEFINITY) injection 2 mL 01-19 20:30: 00 01-19 20:30 :00 No [id number] 2mL 2 mL, IV Push, ONCE, 1 dose, On Sun01/19/23 at 1430, Routine [facility] lisinopriL (PRINIVIL,Z ESTRIL) tablet 5 mg 01-19 19:45: 00 01-23 16:48 :12 No 5mg 5 mg, Oral, DAILY, First dose (after last modificati on) on Sun01/19/23 at 1345, Until Discontinu ed, Routine [facility] furosemide (LASIX) injection 80 mg 01-19 17:30: 00 01-21 14:10 :45 No 80mg 80 mg, IV Push, BID, First dose on Sun01/19/23 at 1130, Until Discontinu ed, [facility] ([facility]OL[facility] 650 mg 01-19 17:24: 01 Yes 650mg 650 mg, Oral, Q6HPRN, Starting on Sun01/19/23 at 1124, Until Discontinu ed, Routine, Pain (scale 1-3) [facility] hydroCHLORO thiazide 25 mg tablet 01-16 19:18: 10 01-16 00:00 :00 No 25mg Take 25 mg by mouth in the morning. [facility] furosemide 40 mg tablet 01-16 00:00: 00 01-22 00:00 :00 No 80mg Take 2 tablets by mouth every morning. [facility] furosemide 40 mg tablet 01-16 00:00: 00 01-22 00:00 :00 No [id number] 40mg Take 1 tablet by mouth every evening. [facility] hydroCHLORO thiazide 25 mg tablet 01-09 14:11: 55 Yes 25mg Take 25 mg by mouth in the morning. [facility] furosemide (LASIX) injection 40 mg 01-05 21:30: 00 01-05 21:49 :00 No 40mg 40 mg, IV Push, ONCE, 1 dose, On Sun01/05/23 at 1530, LETITIA [facility] furosemide (LASIX) injection 40 mg 01-05 20:00: 00 01-05 19:59 :00 No 40mg 40 mg, IV Push, ONCE, 1 dose, [facility]05/23 at 1400[facility] 2.5 mg /3 mL (0.083 %) nebulizer solution 5 mg 01-05 20:00: 00 01-05 19:52 :00 No 5mg 5 mg, Inhalation , ONCE, 1 dose, [facility] Sun01/05/23 at 1400[facility]/actuati on inhaler 01-05 00:00: 00 Yes [id number] 2{puff} Inhale 2 Puffs every 4 (four) hours as needed for Wheezing or Shortness of Breath. [facility] atorvastati n 40 mg tablet 12-21 11:: 12-21 00:00 :00 No 40mg Take 40 mg by mouth at bedtime. [facility] clopidogreL 75 mg tablet 12-21 11:: 12-21 00:00 :00 No 75mg Take 75 mg by mouth in the morning. [facility] aspirin 81 mg Cap 12-21 11:: 14 12-21 00:00 :00 No Take by mouth. [facility] furosemide 40 mg tablet 12-21 11:: 12-21 00:00 :00 No 40mg Take 40 mg by mouth in the morning. [facility] carvediloL 3.125 mg tablet 12-21 11:: 12-21 00:00 :00 No 3.125mg Take 3.125 mg by mouth in the morning and 3.125 mg in the evening. Take with meals. [facility] lisinopriL 5 mg tablet 12-21 11:: 12-21 00:00 :00 No 5mg Take 5 mg by mouth in the morning. [facility] metoprolol tartrate 25 mg tablet 12-21 11:: Yes 25mg Take 25 mg by mouth in the morning and 25 mg in the evening. [facility] hydroCHLORO thiazide 25 mg tablet 12-21 11:: Yes 25mg Take 25 mg by mouth in the morning. [facility] atorvastati n 40 mg tablet 12-21 00:00: 00 01-22 00:00 :00 No [id number] 40mg Take 1 tablet by mouth at bedtime. [facility] carvediloL 3.125 mg tablet 12-21 00:00: 00 01-22 00:00 :00 No [id number] 3.125mg Take 1 tablet by mouth in the morning and 1 tablet in the evening. Take with meals. [facility] lisinopriL 5 mg tablet 12-21 00:00: 00 01-22 00:00 :00 No [id number] 5mg Take 1 tablet by mouth in the morning. [facility] aspirin 81 mg Cap 12-21 00:00: 00 01-22 00:00 :00 No [id number] 1{capsu le} Take 1 capsule by mouth daily. [facility] benzonatate 200 mg capsule 12-21 00:00: 00 01-22 00:00 :00 No [id number] 200mg Take 1 capsule by mouth 3 (three) times daily as needed for Cough. [facility] clopidogreL 75 mg tablet 12-21 00:00: 00 01-22 00:00 :00 No [id number] 75mg Take 1 tablet by mouth in the morning. [facility] furosemide 40 mg tablet 12-21 00:00: 00 01-16 00:00 :00 No [id number] 40mg Take 1 tablet by mouth in the morning. [facility] azithromyci n 250 mg tablet 12-21 00:00: 00 12-28 05:59 :00 No [id number] 250mg Take 1 tablet by mouth in the morning for 6 days. Take 500 mg day 1, then 250 mg days 2 to 5. [facility] TYLENOL-COD EINE #3 300-30 mg tablet 08-06 00:00: 00 12-21 00:00 :00 No 1{tbl} Take 1 tablet by mouth every 4 (four) hours as needed for Pain (scale 4-6). [facility] IBUPROFEN 400 mg tablet 08-06 00:00: 00 12-21 00:00 :00 No 400mg Take 1 tablet by mouth every 6 (six) hours as needed for Pain (scale 1-3). [facility] Vital Signs Vital Name Observation Time Observation Value Comments S alesha Systolic blood pressure 2024-05-22 21:10:00 115 mm[Hg] [facility] Diastolic blood pressure 2024-05-22 21:10:00 81 mm[Hg] [facility] Heart rate 2024-05-22 21:10:00 55 /min [facility] Body temperature 2024-05-22 21:10:[address] [facility] Respiratory rate 2024-05-22 21:10:00 20 /min [facility] Body height 2024-05-22 21:10:00 185.4 cm [facility] Body weight 2024-05-22 21:10:00 94.348 kg [facility] BMI 2024-05-22 21:10:00 27.44 kg/m2 [facility] Oxygen saturation in Arterial blood by Pulse oximetry 2024-05-22 21:10:00 98 /min [facility] Systolic blood pressure 2024-05-21 20:55:00 100 mm[Hg] [facility] Diastolic blood pressure 2024-05-21 20:55:00 78 mm[Hg] [facility] Heart rate 2024-05-21 20:55:00 103 /min [facility] Body temperature 2024-05-21 20:55:[address] [facility] Respiratory rate 2024-05-21 20:55:00 20 /min [facility] Oxygen saturation in Arterial blood by Pulse oximetry 2024-05-21 20:55:00 95 /min [facility] Body height 2024-05-21 18:06:00 185.4 cm [facility] Body weight 2024-05-21 18:06:00 94.348 kg [facility] BMI 2024-05-21 18:06:00 27.44 kg/m2 [facility] Systolic blood pressure 2024-04-16 15:27:19 135 mm[Hg] [facility] Diastolic blood pressure 2024-04-16 15:27:19 86 mm[Hg] [facility] Respiratory rate 2024-04-16 15:27:19 20 /min [facility] Oxygen saturation in Arterial blood by Pulse oximetry 2024-04-16 15:27:19 97 /min [facility] Heart rate 2024-04-16 15:11:48 109 /min [facility] Body temperature 2024-04-16 13:31:[address] [facility] Body weight 2024-04-16 07:44:00 106.867 kg [facility] BMI 2024-04-16 07:44:00 31.39 kg/m2 [facility] Body height 2024-03-23 19:29:00 185.4 cm [facility] Systolic blood pressure 2024-04-07 17:17:00 110 mm[Hg] [facility] Diastolic blood pressure 2024-04-07 17:17:00 75 mm[Hg] [facility] Heart rate 2024-04-07 17:17:00 115 /min [facility] Respiratory rate 2024-04-07 17:17:00 17 /min [facility] Oxygen saturation in Arterial blood by Pulse oximetry 2024-04-07 17:17:00 93 /min [facility] Body temperature 2024-04-07 16:30:[address] [facility] Body weight 2024-04-07 08:18:00 107.366 kg [facility] BMI 2024-04-07 08:18:00 31.85 kg/m2 [facility] Body height 2024-03-23 19:29:00 185.4 cm [facility] Systolic blood pressure 2024-04-01 04:50:00 110 mm[Hg] [facility] Diastolic blood pressure 2024-04-01 04:50:00 74 mm[Hg] [facility] Heart rate 2024-04-01 04:50:00 104 /min [facility] Body temperature 2024-04-01 04:50:[address] [facility] Respiratory rate 2024-04-01 04:50:00 17 /min [facility] Oxygen saturation in Arterial blood by Pulse oximetry 2024-04-01 04:50:00 93 /min [facility] Body weight 2024-03-31 05:38:00 101.379 kg [facility] BMI 2024-03-31 05:38:00 29.21 kg/m2 [facility] Body height 2024-03-23 19:29:00 185.4 cm [facility] Systolic blood pressure 2024-03-03 23:52:00 134 mm[Hg] [facility] Diastolic blood pressure 2024-03-03 23:52:00 94 mm[Hg] [facility] Heart rate 2024-03-03 23:52:00 110 /min [facility] Respiratory rate 2024-03-03 23:52:00 20 /min [facility] Oxygen saturation in Arterial blood by Pulse oximetry 2024-03-03 23:52:00 98 /min [facility] Body temperature 2024-03-03 19:55:[address] [facility] Body weight 2024-03-03 19:55:00 95.255 kg [facility] BMI 2024-03-03 19:55:00 27.33 kg/m2 [facility] Systolic blood pressure 2023-07-16 19:38:00 118 mm[Hg] [facility] Diastolic blood pressure 2023-07-16 19:38:00 64 mm[Hg] [facility] Heart rate 2023-07-16 19:38:00 74 /min [facility] Respiratory rate 2023-07-16 19:38:00 19 /min [facility] Body height 2023-07-16 19:38:00 186.7 cm [facility] Body weight 2023-07-16 19:38:00 95.437 kg [facility] BMI 2023-07-16 19:38:00 27.38 kg/m2 [facility] Oxygen saturation in Arterial blood by Pulse oximetry 2023-07-16 19:38:00 95 /min [facility] Systolic blood pressure 2023-07-06 21:55:00 122 mm[Hg] [facility] Diastolic blood pressure 2023-07-06 21:55:00 78 mm[Hg] [facility] Heart rate 2023-07-06 21:55:00 78 /min [facility] Body temperature 2023-07-06 21:55:[address] [facility] Respiratory rate 2023-07-06 21:55:00 22 /min [facility] Oxygen saturation in Arterial blood by Pulse oximetry 2023-07-06 21:55:00 94 /min [facility] Body height 2023-07-06 16:14:00 185.4 cm [facility] Body weight 2023-07-06 16:14:00 95.3 kg [facility] BMI 2023-07-06 16:14:00 27.72 kg/m2 [facility] Systolic blood pressure 2023-07-06 20:45:00 136 mm[Hg] [facility] Diastolic blood pressure 2023-07-06 20:45:00 78 mm[Hg] [facility] Heart rate 2023-07-06 20:45:00 76 /min [facility] Respiratory rate 2023-07-06 20:45:00 24 /min [facility] Oxygen saturation in Arterial blood by Pulse oximetry 2023-07-06 20:45:00 95 /min [facility] Body temperature 2023-07-06 20:37:[address] [facility] Body height 2023-07-06 16:14:00 185.4 cm [facility] Body weight 2023-07-06 16:14:00 95.3 kg [facility] BMI 2023-07-06 16:14:00 27.72 kg/m2 [facility] Systolic blood pressure 2023-06-01 15:25:00 140 mm[Hg] [facility] Diastolic blood pressure 2023-06-01 15:25:00 87 mm[Hg] [facility] Heart rate 2023-06-01 15:25:00 64 /min [facility] Oxygen saturation in Arterial blood by Pulse oximetry 2023-06-01 15:25:00 96 /min [facility] BMI 2023-06-01 15:22:00 29.03 kg/m2 [facility] Body temperature 2023-06-01 15:22:[address] [facility] Respiratory rate 2023-06-01 15:22:00 18 /min [facility] Body height 2023-06-01 15:22:00 184.2 cm [facility] Body weight 2023-06-01 15:22:00 98.431 kg [facility] Systolic blood pressure 2023-05-21 19:25:00 116 mm[Hg] [facility] Diastolic blood pressure 2023-05-21 19:25:00 78 mm[Hg] [facility] Heart rate 2023-05-21 19:25:00 51 /min [facility] Body temperature 2023-05-21 19:25:[address] [facility] Body height 2023-05-21 19:25:00 186.7 cm [facility] Body weight 2023-05-21 19:25:00 95.255 kg [facility] BMI 2023-05-21 19:25:00 27.33 kg/m2 [facility] Oxygen saturation in Arterial blood by Pulse oximetry 2023-05-21 19:25:00 97 /min [facility] Systolic blood pressure 2023-05-10 13:08:00 117 mm[Hg] [facility] Diastolic blood pressure 2023-05-10 13:08:00 70 mm[Hg] [facility] Heart rate 2023-05-10 13:08:00 68 /min [facility] Body temperature 2023-05-10 13:08:[address] [facility] Respiratory rate 2023-05-10 13:08:00 18 /min [facility] Body weight 2023-05-10 13:08:00 91.218 kg [facility] BMI 2023-05-10 13:08:00 26.17 kg/m2 [facility] Oxygen saturation in Arterial blood by Pulse oximetry 2023-05-10 13:08:00 97 /min [facility] Systolic blood pressure 2023-04-18 18:05:00 127 mm[Hg] [facility] Diastolic blood pressure 2023-04-18 18:05:00 76 mm[Hg] [facility] Heart rate 2023-04-18 18:05:00 81 /min [facility] Body temperature 2023-04-18 18:05:[address] [facility] Respiratory rate 2023-04-18 18:05:00 18 /min [facility] Body height 2023-04-18 18:05:00 186.7 cm [facility] Body weight 2023-04-18 18:05:00 97.886 kg [facility] BMI 2023-04-18 18:05:00 28.09 kg/m2 [facility] Oxygen saturation in Arterial blood by Pulse oximetry 2023-04-18 18:05:00 96 /min [facility] Systolic blood pressure 2023-04-12 13:38:00 127 mm[Hg] [facility] Diastolic blood pressure 2023-04-12 13:38:00 83 mm[Hg] [facility] Heart rate 2023-04-12 13:34:00 85 /min [facility] Body temperature 2023-04-12 13:34:[address] [facility] Respiratory rate 2023-04-12 13:34:00 18 /min [facility] Body height 2023-04-12 13:34:00 186.7 cm [facility] Body weight 2023-04-12 13:34:00 96.117 kg [facility] BMI 2023-04-12 13:34:00 27.58 kg/m2 [facility] Oxygen saturation in Arterial blood by Pulse oximetry 2023-04-12 13:34:00 96 /min [facility] Systolic blood pressure 2023-01-24 17:37:00 117 mm[Hg] [facility] Diastolic blood pressure 2023-01-24 17:37:00 65 mm[Hg] [facility] Heart rate 2023-01-24 17:37:00 40 /min [facility] Body temperature 2023-01-24 17:37:[address] [facility] Respiratory rate 2023-01-24 17:37:00 18 /min [facility] Oxygen saturation in Arterial blood by Pulse oximetry 2023-01-24 17:37:00 93 /min [facility] Body height 2023-01-20 00:00:00 185.4 cm [facility] Body weight 2023-01-20 00:00:00 108.863 kg [facility] BMI 2023-01-20 00:00:00 31.66 kg/m2 [facility] Systolic blood pressure 2023-01-22 15:41:00 121 mm[Hg] [facility] Diastolic blood pressure 2023-01-22 15:41:00 82 mm[Hg] [facility] Heart rate 2023-01-22 15:41:00 86 /min [facility] Body temperature 2023-01-22 15:41:[address] [facility] Respiratory rate 2023-01-22 15:41:00 18 /min [facility] Oxygen saturation in Arterial blood by Pulse oximetry 2023-01-22 15:41:00 99 /min [facility] Body height 2023-01-20 00:00:00 185.4 cm [facility] Body weight 2023-01-20 00:00:00 108.863 kg [facility] BMI 2023-01-20 00:00:00 31.66 kg/m2 [facility] Systolic blood pressure 2023-01-16 20:57:00 130 mm[Hg] [facility] Diastolic blood pressure 2023-01-16 20:57:00 89 mm[Hg] [facility] Heart rate 2023-01-16 20:57:00 92 /min [facility] Body temperature 2023-01-16 20:57:[address] [facility] Respiratory rate 2023-01-16 20:57:00 20 /min [facility] Body height 2023-01-16 20:57:00 186.7 cm [facility] Body weight 2023-01-16 20:57:00 102.876 kg [facility] BMI 2023-01-16 20:57:00 29.52 kg/m2 [facility] Oxygen saturation in Arterial blood by Pulse oximetry 2023-01-16 20:57:00 97 /min [facility] Systolic blood pressure 2023-01-09 20:08:00 104 mm[Hg] [facility] Diastolic blood pressure 2023-01-09 20:08:00 70 mm[Hg] [facility] Heart rate 2023-01-09 20:08:00 94 /min [facility] Body temperature 2023-01-09 20:08:[address] [facility] Respiratory rate 2023-01-09 20:08:00 16 /min [facility] Body height 2023-01-09 20:08:00 186.7 cm [facility] Body weight 2023-01-09 20:08:00 99.655 kg [facility] BMI 2023-01-09 20:08:00 28.59 kg/m2 [facility] Oxygen saturation in Arterial blood by Pulse oximetry 2023-01-09 20:08:00 97 /min [facility] Systolic blood pressure 2023-01-05 21:00:00 110 mm[Hg] [facility] Diastolic blood pressure 2023-01-05 21:00:00 79 mm[Hg] [facility] Heart rate 2023-01-05 21:00:00 69 /min [facility] Respiratory rate 2023-01-05 21:00:00 12 /min [facility] Oxygen saturation in Arterial blood by Pulse oximetry 2023-01-05 21:00:00 95 /min [facility] Body temperature 2023-01-05 17:11:[address] [facility] Body height 2023-01-05 17:11:00 185.4 cm [facility] Body weight 2023-01-05 17:11:00 113.399 kg [facility] BMI 2023-01-05 17:11:00 32.98 kg/m2 [facility] Systolic blood pressure 2022-12-21 16:46:00 116 mm[Hg] [facility] Diastolic blood pressure 2022-12-21 16:46:00 85 mm[Hg] [facility] Heart rate 2022-12-21 16:46:00 93 /min [facility] Body height 2022-12-21 16:46:00 186.7 cm [facility] Body weight 2022-12-21 16:46:00 100.699 kg [facility] BMI 2022-12-21 16:46:00 28.89 kg/m2 [facility] Oxygen saturation in Arterial blood by Pulse oximetry 2022-12-21 16:46:00 97 /min [facility] Systolic blood pressure 2024-04-30 16:20:00 85 mm[Hg] [facility] Diastolic blood pressure 2024-04-30 16:20:00 65 mm[Hg] [facility] Heart rate 2024-04-30 14:30:00 96 /min [facility] Body temperature 2024-04-30 14:25:[address] [facility] Respiratory rate 2024-04-30 14:25:00 20 /min [facility] Oxygen saturation in Arterial blood by Pulse oximetry 2024-04-30 14:25:00 92 /min [facility] Body weight 2024-04-30 10:00:00 93.486 kg [facility] BMI 2024-04-30 10:00:00 27.19 kg/m2 [facility] Body height 2024-03-23 19:29:00 185.4 cm [facility] Procedures Procedure Date / Time Performed Performing Clinician Source COMP. METABOLIC PANEL (39669) 2024-04-30 15:39:[address] [facility] LACTIC ACID WHOLE BLOOD 2024-04-30 15:39:[address] [facility] CBC WITH DIFF 2024-04-30 15:36:00 Farooq Mcguire [facility] POCT GLUCOSE (AUTOMATED) 2024-04-30 14:25:[address] [facility] INFLUENZA A/B RSV COVID NAAT 2024-04-30 13:19:[address] [facility] XR CHEST 1 VW 2024-04-30 12:47:00 Sheeba Escobar [facility] MAGNESIUM 2024-04-30 10:53:00 Farooq Mcguire [facility] BASIC METABOLIC PANEL (NA, K, CL, CO2, GLUCOSE, BUN, CREATININE, CA) 2024-04-30 10:53:[address] [facility] HEPATIC FUNCTION PANEL ([id number]) (ALB,T.PRO,BILI T,BU/BC,ALT,AST,ALK PHOS) 2024-04-30 10:53:[address] [facility] LACTIC ACID WHOLE BLOOD 2024-04-30 10:53:[address] [facility] LACTIC ACID WHOLE BLOOD 2024-04-30 04:38:[address] [facility] POCT GLUCOSE (AUTOMATED) 2024-04-30 01:39:00 [facility] COMP. METABOLIC PANEL ([id number]) 2024-04-30 01:00:[address] [facility] LACTIC ACID WHOLE BLOOD 2024-04-30 00:59:[address] [facility] POCT GLUCOSE (AUTOMATED) 2024-04-29 23:13:00 [facility] POCT GLUCOSE (AUTOMATED) 2024-04-29 21:20:00 [facility] BASIC METABOLIC PANEL (NA, K, CL, CO2, GLUCOSE, BUN, CREATININE, CA) 2024-04-29 20:45:[address] [facility] POCT GLUCOSE (AUTOMATED) 2024-04-29 19:14:00 [facility] TRANSESOPHAGEAL ECHO (VARINDER) COMPLETE W/ DOPPLER AND COLOR 2024-04-29 18:15:[address] [facility] POCT GLUCOSE (AUTOMATED) 2024-04-29 13:06:00 Rochernán crandall [facility] MAGNESIUM 2024-04-29 08:19:00 Farooq Mcguire [facility] CBC WITH DIFF 2024-04-29 08:19:00 Farooq Mcguire [facility] COMP. METABOLIC PANEL ([id number]) 2024-04-29 08:19:00 Dino Mary [facility] POCT GLUCOSE (AUTOMATED) 2024-04-29 01:36:00 Roc karley, [facility] LACTIC ACID WHOLE BLOOD 2024-04-29 01:13:[address] [facility] COMP. METABOLIC PANEL ([id number]) 2024-04-29 01:13:[address] [facility] POCT GLUCOSE (AUTOMATED) 2024-04-28 20:50:00 Roc karley, [facility] MAGNESIUM 2024-04-28 19:42:00 Emil Mary [facility] COMP. METABOLIC PANEL ([id number]) 2024-04-28 19:42:[address] [facility] LACTIC ACID WHOLE BLOOD 2024-04-28 19:42:00 Dino Abrams [facility] POCT GLUCOSE (AUTOMATED) 2024-04-28 17:01:00 Roc crandall, [facility] XR CHEST 1 VW 2024-04-28 16:06:00 Farooq Mcguire [facility] ACUTE CARE VENOUS BLOOD GAS 2024-04-28 15:41:[address] [facility] LACTIC ACID WHOLE BLOOD 2024-04-28 15:35:[address] [facility] CBC WITH DIFF 2024-04-28 13:33:00 Farooq Mcguire [facility] POCT GLUCOSE (AUTOMATED) 2024-04-28 12:49:[address] [facility] BASIC METABOLIC PANEL (NA, K, CL, CO2, GLUCOSE, BUN, CREATININE, CA) 2024-04-28 09:58:[address] [facility] MAGNESIUM 2024-04-28 09:58:00 Juan A Bermeo [facility] N-TERMINAL PRO-BNP 2024-04-28 09:58:[address] [facility] HEPATIC FUNCTION PANEL ([id number]) (ALB,T.PRO,BILI T,BU/BC,ALT,AST,ALK PHOS) 2024-04-28 09:58:[address] [facility] BASIC METABOLIC PANEL (NA, K, CL, CO2, GLUCOSE, BUN, CREATININE, CA) 2024-04-28 01:57:[address] [facility] POCT GLUCOSE (AUTOMATED) 2024-04-28 01:46:00 [facility] POCT GLUCOSE (AUTOMATED) 2024-04-27 21:30:00 [facility] LACTIC ACID WHOLE BLOOD 2024-04-27 21:14:[address] [facility] CREATININE, URINE RANDOM 2024-04-27 19:49:[address] [facility] POTASSIUM, URINE RANDOM 2024-04-27 19:49:[address] [facility] PH URINE 2024-04-27 19:49:00 Farooq Mcguire [facility] CALCIUM, URINE RANDOM 2024-04-27 19:49:[address] [facility] UREA NITROGEN, URINE RANDOM 2024-04-27 19:49:[address] [facility] RENIN ACTIVITY 2024-04-27 15:06:00 Farooq Mcguire [facility] ALDOSTERONE, SERUM 2024-04-27 15:06:[address] [facility] BASIC METABOLIC PANEL (NA, K, CL, CO2, GLUCOSE, BUN, CREATININE, CA) 2024-04-27 15:06:[address] [facility] CBC WITH DIFF 2024-04-27 09:24:00 Sheeba Escobar [facility] MAGNESIUM 2024-04-27 09:24:00 [facility] (NA, K, CL, CO2, GLUCOSE, BUN, CREATININE, CA) 2024-04-27 09:24:[address] [facility] BASIC METABOLIC PANEL (NA, K, CL, CO2, GLUCOSE, BUN, CREATININE, CA) 2024-04-27 04:17:[address] [facility] MAGNESIUM 2024-04-27 04:17:00 Juan A Bermeo [facility] POCT GLUCOSE (AUTOMATED) 2024-04-27 01:41:00 [facility] 2024-04-26 21:25:[address] [facility] BASIC METABOLIC PANEL (NA, K, CL, CO2, GLUCOSE, BUN, CREATININE, CA) 2024-04-26 19:21:[address] [facility] POCT GLUCOSE (AUTOMATED) 2024-04-26 17:03:00 [facility] WHOLE [facility]LOOD 2024-04-26 15:52:[address] [facility] POCT GLUCOSE (AUTOMATED) 2024-04-26 14:32:00 [facility] MET[facility]OLIC PANEL (NA, K, CL, CO2, GLUCOSE, BUN, CREATININE, CA) 2024-04-26 14:27:[address] [facility] LACTIC ACID WHOLE BLOOD 2024-04-26 07:01:[address] [facility] CBC WITH DIFF 2024-04-26 07:00:00 Emil Mary [facility] COMP. METABOLIC PANEL ([id number]) 2024-04-26 07:00:00 Dino Mary [facility] MAGNESIUM 2024-04-26 07:00:00 Emil Mary [facility] LACTIC ACID WHOLE BLOOD 2024-04-26 01:39:[address] [facility] POCT GLUCOSE (AUTOMATED) 2024-04-26 01:31:00 Rochernán crandall [facility] LACTIC ACID WHOLE BLOOD 2024-04-25 22:25:[address] [facility] COMP. METABOLIC PANEL ([id number]) 2024-04-25 22:25:[address] [facility] POCT GLUCOSE (AUTOMATED) 2024-04-25 21:33:00 [facility] POCT GLUCOSE (AUTOMATED) 2024-04-25 21:01:00 [facility] LACTIC ACID WHOLE BLOOD 2024-04-25 19:02:[address] [facility] BASIC METABOLIC PANEL (NA, K, CL, CO2, GLUCOSE, BUN, CREATININE, CA) 2024-04-25 19:02:[address] [facility] POCT GLUCOSE (AUTOMATED) 2024-04-25 17:12[facility] POCT GLUCOSE (AUTOMATED) 2024-04-25 12:35:00 [facility] LACTIC ACID WHOLE BLOOD 2024-04-25 05:17:[address] [facility] CBC WITH DIFF 2024-04-25 05:16:00 Sheeba Escobar [facility] MAGNESIUM 2024-04-25 05:16:00 [facility] COMP. METABOLIC PANEL ([id number]) 2024-04-25 05:16:[address] [facility] N-TERMINAL PRO-BNP 2024-04-25 05:16:00 [facility] 2024-04-25 01:30:00 [facility] BASIC METABOLIC PANEL (NA, K, CL, CO2, GLUCOSE, BUN, CREATININE, CA) 2024-04-24 21:08:[address] [facility] ACTIVATED PARTIAL THRMPLAS KENDELL 2024-04-24 21:08:[address] [facility] ACTIVATED PARTIAL THRMPLAS KENDELL 2024-04-24 19:33:[address] [facility] HB ECG ROUTINE & RHYTHM STRIP 2024-04-24 19:22:[address] [facility] CATH PROCEDURE LOG 2024-04-24 17:00:[address] [facility] CARDIAC CATHETERIZATION 2024-04-24 16:41:40 Dayton Gill ma [facility] CARDIAC CATHETERIZATION 2024-04-24 16:41:40 Dayton Gill ma [facility] CARDIAC CATHETERIZATION 2024-04-24 16:41:40 Dayton Gill ma [facility] CARDIAC CATHETERIZATION 2024-04-24 16:41:40 Dayton Gill ma [facility] CARDIAC CATHETERIZATION 2024-04-24 16:41:40 Dayton Gill ma [facility] POCT ACT LOW RANGE 2024-04-24 16:37:[address] [facility] POCT ACT LOW RANGE 2024-04-24 16:18:[address] [facility] POCT ACT LOW RANGE 2024-04-24 15:47:[address] [facility] POCT ACT LOW RANGE 2024-04-24 15:37:[address] [facility] BASIC METABOLIC PANEL (NA, K, CL, CO2, GLUCOSE, BUN, CREATININE, CA) 2024-04-24 07:49:[address] [facility] MAGNESIUM 2024-04-24 07:49:00 Farooq Mcguire [facility] CBC WITH DIFF 2024-04-24 07:49:00 Farooq Mcguire [facility] POCT GLUCOSE (AUTOMATED) 2024-04-24 04:41:[address] [facility] POCT GLUCOSE (AUTOMATED) 2024-04-23 21:11:[address] [facility] BASIC METABOLIC PANEL (NA, K, CL, CO2, GLUCOSE, BUN, CREATININE, CA) 2024-04-23 18:42:00 Shawn [facility] POCT GLUCOSE (AUTOMATED) 2024-04-23 16:21:00 [facility] POCT GLUCOSE (AUTOMATED) 2024-04-23 13:44:00 [facility] BASIC METABOLIC PANEL (NA, K, CL, CO2, GLUCOSE, BUN, CREATININE, CA) 2024-04-23 09:22:00 Shawn [facility] CBC WITH DIFF 2024-04-23 09:22:00 [facility] MAGNESIUM 2024-04-23 09:22:00 Shawn [facility] POCT GLUCOSE (AUTOMATED) 2024-04-23 02:27:00 [facility] POCT GLUCOSE (AUTOMATED) 2024-04-22 23:29:00 [facility] BASIC METABOLIC PANEL (NA, K, CL, CO2, GLUCOSE, BUN, CREATININE, CA) 2024-04-22 23:27:00 Isaiah [facility] MAGNESIUM 2024-04-22 23:27:00 Isaiah Salena [facility] POCT GLUCOSE (AUTOMATED) 2024-04-22 20:36:[address] [facility] POCT GLUCOSE (AUTOMATED) 2024-04-22 16:53:[address] [facility] POCT GLUCOSE (AUTOMATED) 2024-04-22 15:16:[address] [facility] POCT GLUCOSE (AUTOMATED) 2024-04-22 13:53:[address] [facility] MAGNESIUM 2024-04-22 10:16:00 Godfrey Martines [facility] PHOSPHORUS 2024-04-22 10:16:00 Godfrey Martines [facility] COMP. METABOLIC PANEL ([id number]) 2024-04-22 10:16:00 Conrad [facility] CBC WITH DIFF 2024-04-22 10:16:00 Godfrey Martines [facility] BASIC METABOLIC PANEL (NA, K, CL, CO2, GLUCOSE, BUN, CREATININE, CA) 2024-04-22 04:08:00 Dino Mary [facility] MAGNESIUM 2024-04-22 04:08:00 Emil Mary [facility] POCT GLUCOSE (AUTOMATED) 2024-04-22 01:54:[address] [facility] POCT GLUCOSE (AUTOMATED) 2024-04-21 21:30:[address] [facility] MAGNESIUM 2024-04-21 17:43:00 Conrad [facility] BASIC METABOLIC PANEL (NA, K, CL, CO2, GLUCOSE, BUN, CREATININE, CA) 2024-04-21 17:43:00 Conrad [facility] POCT GLUCOSE (AUTOMATED) 2024-04-21 17:23:00 Gill, Fat clari A [facility] XR CHEST 1 VW 2024-04-21 14:44:00 Conrad [facility] POCT GLUCOSE (AUTOMATED) 2024-04-21 12:45:00 Gill, Fat clari A [facility] MAGNESIUM 2024-04-21 09:14:00 Godfrey Martines [facility] PHOSPHORUS 2024-04-21 09:14:00 Godfrey Martines [facility] COMP. METABOLIC PANEL ([id number]) 2024-04-21 09:14:00 Conrad [facility] CBC WITH DIFF 2024-04-21 09:14:00 Conrad [facility] POCT GLUCOSE (AUTOMATED) 2024-04-21 03:03:00 Gill, Fat clari A [facility] POCT GLUCOSE (AUTOMATED) 2024-04-21 01:49:00 Gill, Fat clari A [facility] ACTIVATED PARTIAL THRMPLAS KENDELL 2024-04-21 01:41:[address] [facility] MAGNESIUM 2024-04-20 22:46:00 Godfrey Martines [facility] BASIC METABOLIC PANEL (NA, K, CL, CO2, GLUCOSE, BUN, CREATININE, CA) 2024-04-20 22:46:[address] [facility] POCT GLUCOSE (AUTOMATED) 2024-04-20 21:12:[address] [facility] ACTIVATED PARTIAL THRMPLAS KENDELL 2024-04-20 18:31:[address] [facility] MAGNESIUM 2024-04-20 18:31:00 Godfrey Martines [facility] BASIC METABOLIC PANEL (NA, K, CL, CO2, GLUCOSE, BUN, CREATININE, CA) 2024-04-20 18:31:[address] [facility] POCT GLUCOSE (AUTOMATED) 2024-04-20 17:07:[address] [facility] ACUTE CARE VENOUS COOX PANEL 2024-04-20 13:36:00 [facility] POCT GLUCOSE (AUTOMATED) 2024-04-20 13:33:[address] [facility] ACTIVATED PARTIAL THRMPLAS KENDELL 2024-04-20 12:39:[address] [facility] BASIC METABOLIC PANEL (NA, K, CL, CO2, GLUCOSE, BUN, CREATININE, CA) 2024-04-20 10:35:[address] [facility] MAGNESIUM 2024-04-20 10:35:00 Tyrell Jane [facility] CBC WITH DIFF 2024-04-20 10:35:00 Tyrell [facility] ACTIVATED PARTIAL THRMPLAS KENDELL 2024-04-20 08:23:[address] [facility] ACTIVATED PARTIAL THRMPLAS KENDELL 2024-04-20 03:45:[address] [facility] POCT GLUCOSE (AUTOMATED) 2024-04-20 02:25:00 GillZora odom clari A [facility] MAGNESIUM 2024-04-20 00:56:00 Godfrey Martines [facility] COMP. METABOLIC PANEL ([id number]) 2024-04-20 00:56:00 [facility] LACTIC ACID WHOLE BLOOD 2024-04-20 00:55:[address] [facility] ACTIVATED PARTIAL THRMPLAS KENDELL 2024-04-19 22:28:[address] [facility] POCT GLUCOSE (AUTOMATED) 2024-04-19 21:12:[address] [facility] LACTIC ACID WHOLE BLOOD 2024-04-19 18:00:[address] [facility] POCT GLUCOSE (AUTOMATED) 2024-04-19 17:24:[address] [facility] MAGNESIUM 2024-04-19 17:06:00 Godfrey Martines [facility] COMP. METABOLIC PANEL ([id number]) 2024-04-19 17:06:00 [facility] ACTIVATED PARTIAL THRMPLAS KENDELL 2024-04-19 17:06:[address] [facility] POCT GLUCOSE (AUTOMATED) 2024-04-19 12:54:00 Zora Gill clari A [facility] ACTIVATED PARTIAL THRMPLAS KENDELL 2024-04-19 11:04:[address] [facility] CBC WITH DIFF 2024-04-19 06:41:00 Salena Colon [facility] MAGNESIUM 2024-04-19 06:41:00 Salena Colon [facility] COMP. METABOLIC PANEL ([id number]) 2024-04-19 06:41:00 [facility] LACTIC ACID WHOLE BLOOD 2024-04-19 06:41:[address] [facility] ACTIVATED PARTIAL THRMPLAS KENDELL 2024-04-19 06:41:[address] [facility] POCT GLUCOSE (AUTOMATED) 2024-04-19 02:11:[address] [facility] BASIC METABOLIC PANEL (NA, K, CL, CO2, GLUCOSE, BUN, CREATININE, CA) 2024-04-19 00:28:[address] [facility] MAGNESIUM 2024-04-19 00:28:00 Salena Colon [facility] POCT GLUCOSE (AUTOMATED) 2024-04-18 21:24:00 Zora Gill clari A [facility] POCT GLUCOSE (AUTOMATED) 2024-04-18 17:47:00 Zora Gill clari A [facility] POCT GLUCOSE (AUTOMATED) 2024-04-18 16:49:00 Zora Gill clari A [facility] POCT GLUCOSE (AUTOMATED) 2024-04-18 13:31:00 Z[address] [facility] MAGNESIUM 2024-04-18 09:36:[address] [facility] CBC WITH DIFF 2024-04-18 09:36:[address] [facility] COMP. METABOLIC PANEL ([id number]) 2024-04-18 09:36:[address] [facility] N-TERMINAL PRO-BNP 2024-04-18 09:36:[address] [facility] ACUTE CARE COOXIMETER PANEL 2024-04-18 09:35:[address] [facility] BASIC METABOLIC PANEL (NA, K, CL, CO2, GLUCOSE, BUN, CREATININE, CA) 2024-04-18 02:48:[address] [facility] POCT GLUCOSE (AUTOMATED) 2024-04-18 02:16:00 Zora Gilla Hernán [facility] POCT GLUCOSE (AUTOMATED) 2024-04-17 20:54:00 Zora Gill clari A [facility] POCT GLUCOSE (AUTOMATED) 2024-04-17 20:54:00 Zora Gill clari A [facility] HB ECG ROUTINE & RHYTHM STRIP 2024-04-17 20:41:[address] [facility] BASIC METABOLIC PANEL (NA, K, CL, CO2, GLUCOSE, BUN, CREATININE, CA) 2024-04-17 19:49:[address] [facility] BASIC METABOLIC PANEL (NA, K, CL, CO2, GLUCOSE, BUN, CREATININE, CA) 2024-04-17 19:49:[address] [facility] POCT GLUCOSE (AUTOMATED) 2024-04-17 16:31:[address] [facility] POCT GLUCOSE (AUTOMATED) 2024-04-17 16:31:00 Zora Gill clari Hernán [facility] POCT GLUCOSE (AUTOMATED) 2024-04-17 12:55:00 Zora Gilla Hernán [facility] POCT GLUCOSE (AUTOMATED) 2024-04-17 12:55:[address] [facility] ACUTE CARE COOXIMETER PANEL 2024-04-17 11:05:[address] [facility] ACUTE CARE COOXIMETER PANEL 2024-04-17 11:05:[address] [facility] MAGNESIUM 2024-04-17 07:24:00 Olivier [facility] HEPATIC FUNCTION PANEL ([id number]) (ALB,T.PRO,BILI T,BU/BC,ALT,AST,ALK PHOS) 2024-04-17 07:24:[address] [facility] BASIC METABOLIC PANEL (NA, K, CL, CO2, GLUCOSE, BUN, CREATININE, CA) 2024-04-17 07:24:00 [facility] WITH DIFF 2024-04-17 07:24:00 Olivier [facility] CBC WITH DIFF 2024-04-17 07:24:00 Olivier [facility] BASIC METABOLIC PANEL (NA, K, CL, CO2, GLUCOSE, BUN, CREATININE, CA) 2024-04-17 07:24:00 Olivier [facility] HEPATIC FUNCTION PANEL ([id number]) (ALB,T.PRO,BILI T,BU/BC,ALT,AST,ALK PHOS) 2024-04-17 07:24:00 Olivier [facility] MAGNESIUM 2024-04-17 07:24:00 Olivier [facility] LACTIC ACID WHOLE BLOOD 2024-04-17 01:44:00 Olivier [facility] LACTIC ACID WHOLE BLOOD 2024-04-17 01:44:00 Olivier [facility] POCT GLUCOSE (AUTOMATED) 2024-04-17 01:42:00 Zora Gill clari Hernán [facility] POCT GLUCOSE (AUTOMATED) 2024-04-17 01:42:[address] [facility] MAGNESIUM 2024-04-16 21:23:00 Isaiah Salena [facility] BASIC METABOLIC PANEL (NA, K, CL, CO2, GLUCOSE, BUN, CREATININE, CA) 2024-04-16 21:23:00 Olivire [facility] ACTIVATED PARTIAL THRMPLAS KENDELL 2024-04-16 21:23:00 [facility] (NA, K, CL, CO2, GLUCOSE, BUN, CREATININE, CA) 2024-04-16 21:23:00 Olivier [facility] ACTIVATED PARTIAL THRMPLAS KENDELL 2024-04-16 21:23:00 Olivier [facility] MAGNESIUM 2024-04-16 21:23:00 Salena Colon [facility] POCT GLUCOSE (AUTOMATED) 2024-04-16 20:52:00 Zora Gill clari A [facility] POCT GLUCOSE (AUTOMATED) 2024-04-16 20:52:00 Zora Gill clari A [facility] ACTIVATED PARTIAL THRMPLAS KENDELL 2024-04-16 19:03:00 Olivier [facility] ACTIVATED PARTIAL THRMPLAS KENDELL 2024-04-16 19:03:[address] [facility] POCT GLUCOSE (AUTOMATED) 2024-04-16 17:18:[address] [facility] POCT GLUCOSE (AUTOMATED) 2024-04-16 17:18:[address] [facility] CATH PROCEDURE LOG 2024-04-16 17:02:[address] [facility] CATH PROCEDURE LOG 2024-04-16 17:02:[address] [facility] CARDIAC CATHETERIZATION 2024-04-16 16:40:[address] [facility] CARDIAC CATHETERIZATION 2024-04-16 16:40:[address] [facility] CARDIAC CATHETERIZATION 2024-04-16 16:40:[address] [facility] CARDIAC CATHETERIZATION 2024-04-16 16:40:[address] [facility] POCT ACT LOW RANGE 2024-04-16 16:29:[address] [facility] POCT ACT LOW RANGE 2024-04-16 16:29:[address] [facility] POCT ACT LOW RANGE 2024-04-16 15:55:[address] [facility] POCT ACT LOW RANGE 2024-04-16 15:55:[address] [facility] POCT GLUCOSE (AUTOMATED) 2024-04-16 14:03:00 Zora Gilla Hernán [facility] POCT GLUCOSE (AUTOMATED) 2024-04-16 14:03:00 Zora Gilla Hernán [facility] LACTIC ACID WHOLE BLOOD 2024-04-16 12:35:[address] [facility] LACTIC ACID WHOLE BLOOD 2024-04-16 12:35:[address] [facility] HEPATIC FUNCTION PANEL ([id number]) (ALB,T.PRO,BILI T,BU/BC,ALT,AST,ALK PHOS) 2024-04-16 10:29:00 Olivier [facility] BASIC METABOLIC PANEL (NA, K, CL, CO2, GLUCOSE, BUN, CREATININE, CA) 2024-04-16 10:29:00 Olivier [facility] CBC WITH DIFF 2024-04-16 10:29:00 Olivier [facility] HB ABO GROUPING 2024-04-16 10:29:00 Negin Gill [facility] CBC WITH DIFF 2024-04-16 10:29:00 Olivier [facility] HEPATIC FUNCTION PANEL ([id number]) (ALB,T.PRO,BILI T,BU/BC,ALT,AST,ALK PHOS) 2024-04-16 10:29:00 Olivier [facility] HB ABO GROUPING 2024-04-16 10:29:00 Negin Gill [facility] BASIC METABOLIC PANEL (NA, K, CL, CO2, GLUCOSE, BUN, CREATININE, CA) 2024-04-16 10:29:00 Olivier [facility] HB ECG ROUTINE & RHYTHM STRIP 2024-04-16 03:20:55 Isaiah [facility] HB ECG ROUTINE & RHYTHM STRIP 2024-04-16 03:20:55 Isaiah [facility] MAGNESIUM 2024-04-16 03:13:00 Isaiah Salena [facility] BASIC METABOLIC PANEL (NA, K, CL, CO2, GLUCOSE, BUN, CREATININE, CA) 2024-04-16 03:13:00 Olivier [facility] BASIC METABOLIC PANEL (NA, K, CL, CO2, GLUCOSE, BUN, CREATININE, CA) 2024-04-16 03:13:00 Olivier [facility] MAGNESIUM 2024-04-16 03:13:00 Isaiah [facility] POCT GLUCOSE (AUTOMATED) 2024-04-16 01:52:[address] [facility] POCT GLUCOSE (AUTOMATED) 2024-04-16 01:52:00 Zora Gill clari A [facility] POCT GLUCOSE (AUTOMATED) 2024-04-15 22:38:00 Gill, Fat clari A [facility] POCT GLUCOSE (AUTOMATED) 2024-04-15 22:38:00 Gill, Fat clari A [facility] POCT GLUCOSE (AUTOMATED) 2024-04-15 20:21:00 Gill, Fat clari A [facility] POCT GLUCOSE (AUTOMATED) 2024-04-15 20:21:00 Zora Gill clari A [facility] BASIC METABOLIC PANEL (NA, K, CL, CO2, GLUCOSE, BUN, CREATININE, CA) 2024-04-15 19:56:[address] [facility] BASIC METABOLIC PANEL (NA, K, CL, CO2, GLUCOSE, BUN, CREATININE, CA) 2024-04-15 19:56:[address] [facility] POCT GLUCOSE (AUTOMATED) 2024-04-15 17:26:00 Zora Gill clari A [facility] POCT GLUCOSE (AUTOMATED) 2024-04-15 17:26:00 Gill, Fat clari A [facility] LACTIC ACID WHOLE BLOOD 2024-04-15 15:53:[address] [facility] LACTIC ACID WHOLE BLOOD 2024-04-15 15:53:[address] [facility] POCT GLUCOSE (AUTOMATED) 2024-04-15 13:32:00 Gill, Fat clari A [facility] POCT GLUCOSE (AUTOMATED) 2024-04-15 13:32:00 Gill, Fat clari A [facility] MAGNESIUM 2024-04-15 10:59:[address] [facility] BASIC METABOLIC PANEL (NA, K, CL, CO2, GLUCOSE, BUN, CREATININE, CA) 2024-04-15 10:59:[address] [facility] CBC WITH DIFF 2024-04-15 10:59:00 [address]ón [address] [facility] MAGNESIUM 2024-04-15 10:59:00 Ramón [address] [facility] CBC WITH DIFF 2024-04-15 10:59:00 [facility] (NA, K, CL, CO2, GLUCOSE, BUN, CREATININE, CA) 2024-04-15 10:59:[address] [facility] MAGNESIUM 2024-04-15 03:43:00 Isaiah [facility] BASIC METABOLIC PANEL (NA, K, CL, CO2, GLUCOSE, BUN, CREATININE, CA) 2024-04-15 03:43:00 Isaiah [facility] BASIC METABOLIC PANEL (NA, K, CL, CO2, GLUCOSE, BUN, CREATININE, CA) 2024-04-15 03:43:00 Isaiah [facility] MAGNESIUM 2024-04-15 03:43:00 Isaiah [facility] POCT GLUCOSE (AUTOMATED) 2024-04-15 02:25:00 Gill, Fat clari A [facility] POCT GLUCOSE (AUTOMATED) 2024-04-15 02:25:00 Gill, Fat clari A [facility] POCT GLUCOSE (AUTOMATED) 2024-04-14 21:33:00 Gill, Fat clari A [facility] POCT GLUCOSE (AUTOMATED) 2024-04-14 21:33:00 Gill, Fat clari A [facility] POCT GLUCOSE (AUTOMATED) 2024-04-14 16:57:00 Gill, Fat clari A [facility] POCT GLUCOSE (AUTOMATED) 2024-04-14 16:57:00 Gill, Fat clari A [facility] BASIC METABOLIC PANEL (NA, K, CL, CO2, GLUCOSE, BUN, CREATININE, CA) 2024-04-14 16:55:[address] [facility] BASIC METABOLIC PANEL (NA, K, CL, CO2, GLUCOSE, BUN, CREATININE, CA) 2024-04-14 16:55:[address] [facility] POCT GLUCOSE (AUTOMATED) 2024-04-14 12:46:[address] [facility] POCT GLUCOSE (AUTOMATED) 2024-04-14 12:46:[address] [facility] MAGNESIUM 2024-04-14 09:49:00 Ramón Bettencourt [facility] BASIC METABOLIC PANEL (NA, K, CL, CO2, GLUCOSE, BUN, CREATININE, CA) 2024-04-14 09:49:00 [facility] 2024-04-14 09:49:00 [facility] 2024-04-14 09:49:00 Ramón Bettencourt [facility] CBC WITH DIFF 2024-04-14 09:49:00 Ram[facility] BASIC METABOLIC PANEL (NA, K, CL, CO2, GLUCOSE, BUN, CREATININE, CA) 2024-04-14 09:49:00 [facility]EL (NA, K, CL, CO2, GLUCOSE, BUN, CREATININE, CA) 2024-04-14 02:29:00 Grey Bettencourt Abdalla [facility] BASIC METABOLIC PANEL (NA, K, CL, CO2, GLUCOSE, BUN, CREATININE, CA) 2024-04-14 02:29:00 Grey Bettencourt [facility] POCT GLUCOSE (AUTOMATED) 2024-04-14 02:20:[address] [facility] POCT GLUCOSE (AUTOMATED) 2024-04-14 02:20:[address] [facility] BASIC METABOLIC PANEL (NA, K, CL, CO2, GLUCOSE, BUN, CREATININE, CA) 2024-04-13 20:29:[address] [facility] BASIC METABOLIC PANEL (NA, K, CL, CO2, GLUCOSE, BUN, CREATININE, CA) 2024-04-13 20:29:[address] [facility] POCT GLUCOSE (AUTOMATED) 2024-04-13 20:10:00 Gill, Fat clari A [facility] POCT GLUCOSE (AUTOMATED) 2024-04-13 20:10:00 Grabiel, Fat clari A [facility] HB ECG ROUTINE & RHYTHM STRIP 2024-04-13 18:33:15 Grey Bettencourt [facility] HB ECG ROUTINE & RHYTHM STRIP 2024-04-13 18:33:15 Grey Bettencourt [facility] Barriosalla [facility] POCT GLUCOSE (AUTOMATED) 2024-04-13 16:08:00 Gill, Fat clari A [facility] POCT GLUCOSE (AUTOMATED) 2024-04-13 16:08:00 Gill, Fat clari A [facility] POCT GLUCOSE (AUTOMATED) 2024-04-13 12:15:00 Gill, Fat clari A [facility] POCT GLUCOSE (AUTOMATED) 2024-04-13 12:15:00 Gill, Fat clari A [facility] PHOSPHORUS 2024-04-13 08:03:00 [facility]13 08:03[facility]00 [facility] HE[facility] FUN[facility] ([id number]) (ALB,T.PRO,BILI T,BU/BC,ALT,AST,ALK PHOS) 2024-04-13 08:03:00 [facility] BASIC METABOLIC PANEL (NA, K, CL, CO2, GLUCOSE, BUN, CREATININE, CA) 2024-04-13 08:03:00 [facility]FF 2024-04-13 08:03:00 [facility]FF 2024-04-13 08:03:00 [facility] BASIC METABOLIC PANEL (NA, K, CL, CO2, GLUCOSE, BUN, CREATININE, CA) 2024-04-13 08:03:00 [facility] HEPATIC FUNCTION PANEL ([id number]) (ALB,T.PRO,BILI T,BU/BC,ALT,AST,ALK PHOS) 2024-04-13 08:03:00 Olivier [facility] MAGNESIUM 2024-04-13 08:03:00 [facility] 2024-04-13 08:03:00 [facility] POCT GLUCOSE (AUTOMATED) 2024-04-13 02:37:[address] [facility] POCT GLUCOSE (AUTOMATED) 2024-04-13 02:37:[address] [facility] MAGNESIUM 2024-04-12 23:56:00 Eva Hurd [facility] BASIC METABOLIC PANEL (NA, K, CL, CO2, GLUCOSE, BUN, CREATININE, CA) 2024-04-12 23:56:00 [facility]OLIC PANEL (NA, K, CL, CO2, GLUCOSE, BUN, CREATININE, CA) 2024-04-12 23:56:00 Olivier [facility] MAGNESIUM 2024-04-12 23:56:00 Eva Hurd [facility] POCT GLUCOSE (AUTOMATED) 2024-04-12 21:04:00 Zora Gill clari A [facility] POCT GLUCOSE (AUTOMATED) 2024-04-12 21:04:00 Zora Gill A [facility] BASIC METABOLIC PANEL (NA, K, CL, CO2, GLUCOSE, BUN, CREATININE, CA) 2024-04-12 17:02:[address] [facility] BASIC METABOLIC PANEL (NA, K, CL, CO2, GLUCOSE, BUN, CREATININE, CA) 2024-04-12 17:02:[address] [facility] POCT GLUCOSE (AUTOMATED) 2024-04-12 16:29:00 Zora Gilla Hernán [facility] POCT GLUCOSE (AUTOMATED) 2024-04-12 16:29:00 Grabiel Fat clari A [facility] POCT GLUCOSE (AUTOMATED) 2024-04-12 13:40:00 Grabiel Fat clari A [facility] POCT GLUCOSE (AUTOMATED) 2024-04-12 13:40:00 [address] [facility] CBC WITH DIFF 2024-04-12 09:17:00 Olivier [facility] CBC WITH DIFF 2024-04-12 09:17:00 Olivier [facility] MAGNESIUM 2024-04-12 05:53:00 [facility] ([id number]) (ALB,T.PRO,BILI T,BU/BC,ALT,AST,ALK PHOS) 2024-04-12 05:53:[address] [facility] BASIC METABOLIC PANEL (NA, K, CL, CO2, GLUCOSE, BUN, CREATININE, CA) 2024-04-12 05:53:00 Isaiah [facility] N-TERMINAL PRO-BNP 2024-04-12 05:53:00 Candis Bettencourt [facility] BASIC METABOLIC PANEL (NA, K, CL, CO2, GLUCOSE, BUN, CREATININE, CA) 2024-04-12 05:53:00 Isaiah [facility] MAGNESIUM 2024-04-12 05:53:00 [facility]EL ([id number]) (ALB,T.PRO,BILI T,BU/BC,ALT,AST,ALK PHOS) 2024-04-12 05:53:00 Olivier [facility] N-TERMINAL PRO-BNP 2024-04-12 05:53:[address] [facility] POCT GLUCOSE (AUTOMATED) 2024-04-12 01:06:00 Gill, Fat clari A [facility] POCT GLUCOSE (AUTOMATED) 2024-04-12 01:06:00 Gill, Fat clari A [facility] XR CHEST 1 VW 2024-04-12 00:39:00 Olivier [facility] XR CHEST 1 VW 2024-04-12 00:39:00 Olivier [facility] BASIC METABOLIC PANEL (NA, K, CL, CO2, GLUCOSE, BUN, CREATININE, CA) 2024-04-11 21:54:00 Olivier [facility] BASIC METABOLIC PANEL (NA, K, CL, CO2, GLUCOSE, BUN, CREATININE, CA) 2024-04-11 21:54:00 Olivier [facility] HEPATITIS B SURFACE ANTIBODY 2024-04-11 21:49:00 lOivier [facility] HEPATITIS B SURFACE ANTIGEN 2024-04-11 21:49:00 Olivier [facility] HBC ANTIBODY (IGM & IGG) 2024-04-11 21:49:00 Genie west [facility] HEPATITIS B SURFACE ANTIBODY 2024-04-11 21:49:00 Olivier [facility] HEPATITIS B SURFACE ANTIGEN 2024-04-11 21:49:00 Olivier [facility] HBC ANTIBODY (IGM & IGG) 2024-04-11 21:49:00 Genie west [facility] POCT GLUCOSE (AUTOMATED) 2024-04-11 20:41:00 Gill, Fat clari A [facility] POCT GLUCOSE (AUTOMATED) 2024-04-11 20:41:00 Gill, Fat clari A [facility] POCT GLUCOSE (AUTOMATED) 2024-04-11 17:23:00 Gill, Fat clari A [facility] POCT GLUCOSE (AUTOMATED) 2024-04-11 17:23:00 Gill Zora sahua Hernán [facility] ACUTE CARE COOXIMETER PANEL 2024-04-11 17:13:00 Grabiel Negin Hernán [facility] ACUTE CARE COOXIMETER PANEL 2024-04-11 17:13:[address] [facility] XR CHEST 1 VW 2024-04-11 14:37:[address] [facility] XR CHEST 1 VW 2024-04-11 14:37:[address] [facility] POCT GLUCOSE (AUTOMATED) 2024-04-11 14:26:[address] [facility] POCT GLUCOSE (AUTOMATED) 2024-04-11 14:26:[address] [facility] MAGNESIUM 2024-04-11 09:46:00 Olivier [facility] HEPATIC FUNCTION PANEL ([id number]) (ALB,T.PRO,BILI T,BU/BC,ALT,AST,ALK PHOS) 2024-04-11 09:46:00 Olivier [facility] BASIC METABOLIC PANEL (NA, K, CL, CO2, GLUCOSE, BUN, CREATININE, CA) 2024-04-11 09:46:00 Olivier [facility] CBC WITH DIFF 2024-04-11 09:46:00 Olivier [facility] CBC WITH DIFF 2024-04-11 09:46:00 Olivier [facility] BASIC METABOLIC PANEL (NA, K, CL, CO2, GLUCOSE, BUN, CREATININE, CA) 2024-04-11 09:46:00 Olivier [facility] HEPATIC FUNCTION PANEL ([id number]) (ALB,T.PRO,BILI T,BU/BC,ALT,AST,ALK PHOS) 2024-04-11 09:46:00 Olivier [facility] MAGNESIUM 2024-04-11 09:46:00 Olivier [facility] POCT GLUCOSE (AUTOMATED) 2024-04-11 01:57:00 Zora Gill clari A [facility] POCT GLUCOSE (AUTOMATED) 2024-04-11 01:57:00 Grabiel Fat clari A [facility] MAGNESIUM 2024-04-11 00:55:00 Isaiah [facility] HEPATIC FUNCTION PANEL ([id number]) (ALB,T.PRO,BILI T,BU/BC,ALT,AST,ALK PHOS) 2024-04-11 00:55:00 Traci Colemingo junctionfederico [facility] BASIC METABOLIC PANEL (NA, K, CL, CO2, GLUCOSE, BUN, CREATININE, CA) 2024-04-11 00:55:00 Isaiah [facility] BASIC METABOLIC PANEL (NA, K, CL, CO2, GLUCOSE, BUN, CREATININE, CA) 2024-04-11 00:55:00 Isaiah [facility] MAGNESIUM 2024-04-11 00:55:00 Isaiah [facility] HEPATIC FUNCTION PANEL ([id number]) (ALB,T.PRO,BILI T,BU/BC,ALT,AST,ALK PHOS) 2024-04-11 00:55:[address] [facility] LACTATE DEHYDROGENASE 2024-04-10 23:28:[address] [facility] LACTATE DEHYDROGENASE 2024-04-10 23:28:[address] [facility] POCT GLUCOSE (AUTOMATED) 2024-04-10 23:03:00 Zora Gill clari A [facility] POCT GLUCOSE (AUTOMATED) 2024-04-10 23:03:00 Grabiel Fat clari A [facility] DIFF CONSULT BY PATHOLOGIST 2024-04-10 22:26:[address] [facility] CBC WITH DIFF 2024-04-10 22:26:[address] [facility] DIFF CONSULT INTERPRETATION 2024-04-10 22:26:00 Olivier [facility] DIFF CONSULT BY PATHOLOGIST 2024-04-10 22:26:00 Olivier [facility] CBC WITH DIFF 2024-04-10 22:26:00 Olivier [facility] DIFF CONSULT INTERPRETATION 2024-04-10 22:26:00 Olivier [facility] CBC WITHOUT DIFF 2024-04-10 19:18:00 Suzanne Aguayo [facility] PROTHROMBIN TIME / INR 2024-04-10 19:18:00 Olivier [facility] ACTIVATED PARTIAL THRMPLAS KENDELL 2024-04-10 19:18:00 Olivier [facility] FIBRINOGEN 2024-04-10 19:18:00 Olivier [facility] CBC WITHOUT DIFF 2024-04-10 19:18:00 Suzanne Aguayo [facility] ACTIVATED PARTIAL THRMPLAS KENDELL 2024-04-10 19:18:00 Olivier [facility] PROTHROMBIN TIME / INR 2024-04-10 19:18:00 Olivier [facility] FIBRINOGEN 2024-04-10 19:18:00 Olivier [facility] POCT GLUCOSE (AUTOMATED) 2024-04-10 18:04:00 Gill, Fat clari A [facility] POCT GLUCOSE (AUTOMATED) 2024-04-10 18:04:00 Gill, Fat clari A [facility] CT THORAX WO CONTRAST 2024-04-10 16:26:[address] [facility] CT THORAX WO CONTRAST 2024-04-10 16:26:[address] [facility] POCT GLUCOSE (AUTOMATED) 2024-04-10 14:13:00 Gill, Fat clari A [facility] POCT GLUCOSE (AUTOMATED) 2024-04-10 14:13:00 Gill, Fat clari A [facility] MAGNESIUM 2024-04-10 09:00:00 Ramón [address] [facility] COMP. METABOLIC PANEL ([id number]) 2024-04-10 09:00:[address] [facility] CBC WITH DIFF 2024-04-10 09:00:00 Ramón Bettencourt [facility] MAGNESIUM 2024-04-10 09:00:00 Ramón Bettencourt Abdalla [facility] CBC WITH DIFF 2024-04-10 09:00:00 Ramón Bettencourt Abdalla [facility] COMP. METABOLIC PANEL ([id number]) 2024-04-10 09:00:[address] [facility] POCT GLUCOSE (AUTOMATED) 2024-04-10 02:08:00 Gill, Fat clari A [facility] POCT GLUCOSE (AUTOMATED) 2024-04-10 02:08:00 Gill, Fat clari A [facility] POCT GLUCOSE (AUTOMATED) 2024-04-09 22:26:00 Gill, Fat clari A [facility] POCT GLUCOSE (AUTOMATED) 2024-04-09 22:26:00 Gill, Fat clari A [facility] XR CHEST 1 VW 2024-04-09 22:17:23 OlivenyQuang avila [facility] XR CHEST 1 VW 2024-04-09 22:17:23 OlivenyQuang avila [facility] BASIC METABOLIC PANEL (NA, K, CL, CO2, GLUCOSE, BUN, CREATININE, CA) 2024-04-09 19:33:[address] [facility] BASIC METABOLIC PANEL (NA, K, CL, CO2, GLUCOSE, BUN, CREATININE, CA) 2024-04-09 19:33:[address] [facility] POCT GLUCOSE (AUTOMATED) 2024-04-09 18:08:00 Gill, Fat clari A [facility] POCT GLUCOSE (AUTOMATED) 2024-04-09 18:08:00 Gill, Fat clari A [facility] POCT GLUCOSE (AUTOMATED) 2024-04-09 14:11:00 Gill, Fat clari A [facility] POCT GLUCOSE (AUTOMATED) 2024-04-09 14:11:00 Gill, Fat clari A [facility] LACTIC ACID WHOLE BLOOD 2024-04-09 13:02:[address] [facility] LACTIC ACID WHOLE BLOOD 2024-04-09 13:02:[address] [facility] POCT GLUCOSE (AUTOMATED) 2024-04-09 12:19:00 Grabiel, Fat clari A [facility] POCT GLUCOSE (AUTOMATED) 2024-04-09 12:19:00 Grabiel, Fat clari A [facility] MAGNESIUM 2024-04-09 09:52:00 Olivier [facility] HEPATIC FUNCTION PANEL (40552) (ALB,T.PRO,BILI T,BU/BC,ALT,AST,ALK PHOS) 2024-04-09 09:52:00 Olivier [facility] BASIC METABOLIC PANEL (NA, K, CL, CO2, GLUCOSE, BUN, CREATININE, CA) 2024-04-09 09:52:00 Olivier [facility] CBC WITH DIFF 2024-04-09 09:52:00 Olivier [facility] HEPATITIS B SURFACE ANTIBODY 2024-04-09 09:52:00 [facility] 2024-04-09 09:52:00 [facility] WITH DIFF 2024-04-09 09:52:00 Olivier [facility] MAGNESIUM 2024-04-09 09:52:00 [facility]OLIC PANEL (NA, K, CL, CO2, GLUCOSE, BUN, CREATININE, CA) 2024-04-09 09:52:00 Olivier [facility] HEPATIC FUNCTION PANEL ([id number]) (ALB,T.PRO,BILI T,BU/BC,ALT,AST,ALK PHOS) 2024-04-09 09:52:[address] [facility] HEPATITIS B SURFACE ANTIBODY 2024-04-09 09:52:[address] [facility] HEPATITIS B SURFACE ANTIGEN 2024-04-09 09:52:00 [facility] POCT GLUCOSE (AUTOMATED) 2024-04-09 02:32:00 Gill, Fat clari A [facility] POCT GLUCOSE (AUTOMATED) 2024-04-09 02:32:00 Gill, Fat clari A [facility] POCT GLUCOSE (AUTOMATED) 2024-04-08 20:13:00 Gill, Fat clari A [facility] POCT GLUCOSE (AUTOMATED) 2024-04-08 20:13:00 Gill, Fat clari A [facility] POCT GLUCOSE (AUTOMATED) 2024-04-08 20:13:00 Gill, Fat clari A [facility] POCT GLUCOSE (AUTOMATED) 2024-04-08 16:15:00 Gill, Fat clari A [facility] POCT GLUCOSE (AUTOMATED) 2024-04-08 16:15:00 Gill, Fat clari A [facility] POCT GLUCOSE (AUTOMATED) 2024-04-08 16:15:00 Gill, Fat clari A [facility] POCT GLUCOSE (AUTOMATED) 2024-04-08 12:12:00 Gill, Fat clari A [facility] POCT GLUCOSE (AUTOMATED) 2024-04-08 12:12:00 Gill, Fat clari A [facility] POCT GLUCOSE (AUTOMATED) 2024-04-08 12:12:00 Gill, Fat clari A [facility] MAGNESIUM 2024-04-08 08:19:[address] [facility] HEPATIC FUNCTION PANEL ([id number]) (ALB,T.PRO,BILI T,BU/BC,ALT,AST,ALK PHOS) 2024-04-08 08:19:00 Olivier [facility] BASIC METABOLIC PANEL (NA, K, CL, CO2, GLUCOSE, BUN, CREATININE, CA) 2024-04-08 08:19:00 Olivier [facility] CBC WITH DIFF 2024-04-08 08:19:00 Olivier [facility] MAGNESIUM 2024-04-08 08:19:00 [facility] FUNCTION PANEL ([id number]) (ALB,T.PRO,BILI T,BU/BC,ALT,AST,ALK PHOS) 2024-04-08 08:19:00 [facility] BASIC METABOLIC PANEL (NA, K, CL, CO2, GLUCOSE, BUN, CREATININE, CA) 2024-04-08 08:19:00 Olivier [facility] CBC WITH DIFF 2024-04-08 08:19:00 [facility] WITH DIFF 2024-04-08 08:19:00 OlivierFormerly [facility] MAGNESIUM 2024-04-08 08:19:00 [facility]OLIC PANEL (NA, K, CL, CO2, GLUCOSE, BUN, CREATININE, CA) 2024-04-08 08:19:00 OlivierFormerly [facility] HEPATIC FUNCTION PANEL ([id number]) (ALB,T.PRO,BILI T,BU/BC,ALT,AST,ALK PHOS) 2024-04-08 08:19:00 Olivier [facility] POCT GLUCOSE (AUTOMATED) 2024-04-08 02:45:00 Gill, Fat clari A [facility] POCT GLUCOSE (AUTOMATED) 2024-04-08 02:45:00 Gill, Fat clari A [facility] POCT GLUCOSE (AUTOMATED) 2024-04-08 02:45:00 Gill, Fat clari A [facility] CATH PROCEDURE LOG 2024-04-07 21:38:39 Frank Lr [facility] CATH PROCEDURE LOG 2024-04-07 21:38:39 Frank Lr [facility] CATH PROCEDURE LOG 2024-04-07 21:38:39 [facility] 2024-04-07 21:30:00 Frank Saldana [facility] CARDIAC CATHETERIZATION 2024-04-07 21:30:00 Frank Saldana [facility] CARDIAC CATHETERIZATION 2024-04-07 21:30:[address] [facility] XR CHEST 1 2024-04-07 15:02:00 Chayo Cole [facility] XR CHEST 1 2024-04-07 15:02:00 Chayo Cole [facility] XR CHEST 1 2024-04-07 15:02:00 Chayo Cole [facility] LACTIC ACID WHOLE BLOOD 2024-04-07 13:58:00 Grey Bettencourt [facility] LACTIC ACID WHOLE BLOOD 2024-04-07 13:58:00 [facility] LACTIC ACID WHOLE BLOOD 2024-04-07 13:58:00 Grey Bettencourt [facility] MAGNESIUM 2024-04-07 08:15:00 Olivier [facility] BASIC METABOLIC PANEL (NA, K, CL, CO2, GLUCOSE, BUN, CREATININE, CA) 2024-04-07 08:15:00 Olivier [facility] CBC WITH DIFF 2024-04-07 08:15:00 Olivier [facility] MAGNESIUM 2024-04-07 08:15:00 Olivier [facility] BASIC METABOLIC PANEL (NA, K, CL, CO2, GLUCOSE, BUN, CREATININE, CA) 2024-04-07 08:15:00 Olivier [facility] CBC WITH DIFF 2024-04-07 08:15:00 Olivier [facility] CBC WITH DIFF 2024-04-07 08:15:00 Olivier [facility] MAGNESIUM 2024-04-07 08:15:00 Olivier [facility] BASIC METABOLIC PANEL (NA, K, CL, CO2, GLUCOSE, BUN, CREATININE, CA) 2024-04-07 08:15:00 Olivier [facility] BODY FLUID EOSINOPHIL SMEAR 2024-04-07 03:47:00 Vickey [facility] BODY FLUID EOSINOPHIL SMEAR 2024-04-07 03:47:00 Vickey [facility] BODY FLUID EOSINOPHIL SMEAR 2024-04-07 03:47:00 [facility] 2024-04-07 01:36:[address] [facility] POCT GLUCOSE (AUTOMATED) 2024-04-07 01:36:[address] [facility] POCT GLUCOSE (AUTOMATED) 2024-04-07 01:36:[address] [facility] POCT GLUCOSE (AUTOMATED) 2024-04-06 21:48:[address] [facility] POCT GLUCOSE (AUTOMATED) 2024-04-06 21:48:[address] [facility] POCT GLUCOSE (AUTOMATED) 2024-04-06 21:48:[address] [facility] POCT GLUCOSE (AUTOMATED) 2024-04-06 18:41:[address] [facility] POCT GLUCOSE (AUTOMATED) 2024-04-06 18:41:[address] [facility] POCT GLUCOSE (AUTOMATED) 2024-04-06 18:41:00 Roc crandall [facility] DUPLEX VENOUS ARM RIGHT - BY VASCULAR LAB 2024-04-06 17:43:05 López, [facility] DUPLEX VENOUS ARM RIGHT - BY VASCULAR LAB 2024-04-06 17:43:05 López [facility] DUPLEX VENOUS ARM RIGHT - BY VASCULAR LAB 2024-04-06 17:43:05 López, [facility] URINALYSIS 2024-04-06 14:53:00 Olivier [facility] URINALYSIS 2024-04-06 14:53:00 Olivier [facility] URINALYSIS 2024-04-06 14:53:00 Olivier [facility] POCT GLUCOSE (AUTOMATED) 2024-04-06 13:32:[address] [facility] POCT GLUCOSE (AUTOMATED) 2024-04-06 13:32:[address] [facility] POCT GLUCOSE (AUTOMATED) 2024-04-06 13:32:[address] [facility] MAGNESIUM 2024-04-06 09:05:00 Ramón [facility]court [facility] BASIC METABOLIC PANEL (NA, K, CL, CO2, GLUCOSE, BUN, CREATININE, CA) 2024-04-06 09:05:00 [facility] 2024-04-06 09:05:00 [facility]24-04-06 09:05:00 Ramón Bettencourt [facility] BASIC METABOLIC PANEL (NA, K, CL, CO2, GLUCOSE, BUN, CREATININE, CA) 2024-04-06 09:05:00 [facility]FF 2024-04-06 09:05:00 [facility] 2024-04-06 09:05:00 [facility]FF 2024-04-06 09:05:00 Ramón Bettencourt [facility] BASIC METABOLIC PANEL (NA, K, CL, CO2, GLUCOSE, BUN, CREATININE, CA) 2024-04-06 09:05:00 Grey Bettencourt [facility] POCT GLUCOSE (AUTOMATED) 2024-04-06 01:37:[address] [facility] POCT GLUCOSE (AUTOMATED) 2024-04-06 01:37:[address] [facility] POCT GLUCOSE (AUTOMATED) 2024-04-06 01:37:[address] [facility] LACTIC ACID WHOLE BLOOD 2024-04-06 01:06:00 Grey Bettencourt [facility] LACTIC ACID WHOLE BLOOD 2024-04-06 01:06:00 Grey Bettencourt [facility] LACTIC ACID WHOLE BLOOD 2024-04-06 01:06:00 Grey Bettencourt [facility] LACTIC ACID WHOLE BLOOD 2024-04-05 21:31:00 Shagufta Jane [facility] LACTIC ACID WHOLE BLOOD 2024-04-05 21:31:00 Shagufta Jane [facility] LACTIC ACID WHOLE BLOOD 2024-04-05 21:31:00 Shagufta Jane [facility] POCT GLUCOSE (AUTOMATED) 2024-04-05 21:25:[address] [facility] POCT GLUCOSE (AUTOMATED) 2024-04-05 21:25:[address] [facility] POCT GLUCOSE (AUTOMATED) 2024-04-05 21:25:00 Roc life, [facility] POCT GLUCOSE (AUTOMATED) 2024-04-05 18:04:00 Roc life, [facility] POCT GLUCOSE (AUTOMATED) 2024-04-05 18:04:00 [facility] life, [facility] POCT GLUCOSE (AUTOMATED) 2024-04-05 18:04:00 Roc life, [facility] BASIC METABOLIC PANEL (NA, K, CL, CO2, GLUCOSE, BUN, CREATININE, CA) 2024-04-05 17:48:00 Kartik Ferrer [facility] N-TERMINAL PRO-BNP 2024-04-05 17:48:00 Nabil [facility] LACTIC ACID WHOLE BLOOD 2024-04-05 17:48:00 Kartik Tejada [facility] BASIC METABOLIC PANEL (NA, K, CL, CO2, GLUCOSE, BUN, CREATININE, CA) 2024-04-05 17:48:00 Kartik Ferrer [facility] N-TERMINAL PRO-BNP 2024-04-05 17:48:00 Kartik Ferrer [facility] LACTIC ACID WHOLE BLOOD 2024-04-05 17:48:00 Eddie TejadaFormerly [facility] BASIC METABOLIC PANEL (NA, K, CL, CO2, GLUCOSE, BUN, CREATININE, CA) 2024-04-05 17:48:00 Kartik Ferrer [facility] N-TERMINAL PRO-BNP 2024-04-05 17:48:00 Kartik Ferrer [facility] LACTIC ACID WHOLE BLOOD 2024-04-05 17:48:00 Kartik Tejada [facility] URINALYSIS 2024-04-05 17:43:00 Ramón Bettencourt [facility] URINALYSIS 2024-04-05 17:43:00 Ramón Bettenocurt [facility] URINALYSIS 2024-04-05 17:43:00 Ramón Bettencourt [facility] RETROPERITONEAL LIMITED 2024-04-05 16:36:00 Grey Bettencourt [facility] RETROPERITONEAL LIMITED 2024-04-05 16:36:00 Grey Bettencourt Abdalla [facility] RETROPERITONEAL LIMITED 2024-04-05 16:36:00 Grey Bettencourt [facility] POCT GLUCOSE (AUTOMATED) 2024-04-05 14:00:[address] [facility] POCT GLUCOSE (AUTOMATED) 2024-04-05 14:00:[address] [facility] POCT GLUCOSE (AUTOMATED) 2024-04-05 14:00:[address] [facility] MAGNESIUM 2024-04-05 06:19:00 Ramón Bettencourt [facility] BASIC METABOLIC PANEL (NA, K, CL, CO2, GLUCOSE, BUN, CREATININE, CA) 2024-04-05 06:19:00 Grey Bettencourt [facility] CBC WITH DIFF 2024-04-05 06:19:00 [facility] 2024-04-05 06:19:00 Ramón Bettencourt [facility] BASIC METABOLIC PANEL (NA, K, CL, CO2, GLUCOSE, BUN, CREATININE, CA) 2024-04-05 06:19:00 Grey Bettencourt [facility] CBC WITH DIFF 2024-04-05 06:19:00 Ramón Bettencourt [facility] MAGNESIUM 2024-04-05 06:19:00 Ramón [facility] CBC WITH DIFF 2024-04-05 06:19:00 Ramón Bettencourt [facility] BASIC METABOLIC PANEL (NA, K, CL, CO2, GLUCOSE, BUN, CREATININE, CA) 2024-04-05 06:19:00 Grey Bettencourt [facility] POCT GLUCOSE (AUTOMATED) 2024-04-05 01:49:00 Roc life, [facility] POCT GLUCOSE (AUTOMATED) 2024-04-05 01:49:00 Roc life, [facility] POCT GLUCOSE (AUTOMATED) 2024-04-05 01:49:00 Roc life, [facility] POCT GLUCOSE (AUTOMATED) 2024-04-04 22:00:00 Roc life, [facility] POCT GLUCOSE (AUTOMATED) 2024-04-04 22:00:00 Roc life, [facility] POCT GLUCOSE (AUTOMATED) 2024-04-04 22:00:00 Roc life, [facility] POCT GLUCOSE (AUTOMATED) 2024-04-04 18:30:00 Roc life, [facility] POCT GLUCOSE (AUTOMATED) 2024-04-04 18:30:00 Roc life, [facility] POCT GLUCOSE (AUTOMATED) 2024-04-04 18:30:00 Roc life, [facility] POCT GLUCOSE (AUTOMATED) 2024-04-04 13:19:00 Roc life, [facility] POCT GLUCOSE (AUTOMATED) 2024-04-04 13:19:00 Roc life, [facility] POCT GLUCOSE (AUTOMATED) 2024-04-04 13:19:00 Roc life, [facility] MAGNESIUM 2024-04-04 09:28:[address] [facility] BASIC METABOLIC PANEL (NA, K, CL, CO2, GLUCOSE, BUN, CREATININE, CA) 2024-04-04 09:28:00 Olivier [facility] CBC WITH DIFF 2024-04-04 09:28:00 Olivier [facility] MAGNESIUM 2024-04-04 09:28:00 OlivierFormerly [facility] BASIC METABOLIC PANEL (NA, K, CL, CO2, GLUCOSE, BUN, CREATININE, CA) 2024-04-04 09:28:00 Olivier [facility] CBC WITH DIFF 2024-04-04 09:28:00 Olivier [facility] CBC WITH DIFF 2024-04-04 09:28:00 Olivier [facility] MAGNESIUM 2024-04-04 09:28:00 [facility] MET[facility]OLIC PANEL (NA, K, CL, CO2, GLUCOSE, BUN, CREATININE, CA) 2024-04-04 09:28:00 Olivier [facility] BLOOD CULTURE SCREEN 2024-04-04 04:37:00 López [facility] BLOOD CULTURE SCREEN 2024-04-04 04:37:00 López [facility] BLOOD CULTURE SCREEN 2024-04-04 04:37:00 López [facility] POCT GLUCOSE (AUTOMATED) 2024-04-04 01:21:[address] [facility] POCT GLUCOSE (AUTOMATED) 2024-04-04 01:21:[address] [facility] POCT GLUCOSE (AUTOMATED) 2024-04-04 01:21:[address] [facility] BLOOD CULTURE SCREEN 2024-04-03 22:48:00 López [facility] BLOOD CULTURE SCREEN 2024-04-03 22:48:00 López [facility] BLOOD CULTURE SCREEN 2024-04-03 22:48:00 López [facility] POCT GLUCOSE (AUTOMATED) 2024-04-03 21:35:[address] [facility] POCT GLUCOSE (AUTOMATED) 2024-04-03 21:35:00 Roc life, [facility] POCT GLUCOSE (AUTOMATED) 2024-04-03 21:35:[address] [facility] POCT GLUCOSE (AUTOMATED) 2024-04-03 17:04:00 Roc life, [facility] POCT GLUCOSE (AUTOMATED) 2024-04-03 17:04:00 Roc life, [facility] POCT GLUCOSE (AUTOMATED) 2024-04-03 17:04:[address] [facility] POCT GLUCOSE (AUTOMATED) 2024-04-03 14:23:[address] [facility] POCT GLUCOSE (AUTOMATED) 2024-04-03 14:23:[address] [facility] POCT GLUCOSE (AUTOMATED) 2024-04-03 14:23:[address] [facility] XR CHEST 1 VW 2024-04-03 13:38:00 Olivier [facility] XR CHEST 1 2024-04-03 13:38:00 Olivier [facility] XR CHEST 1 VW 2024-04-03 13:38:00 [facility] 2024-04-03 09:21:00 [facility] BASIC METABOLIC PANEL (NA, K, CL, CO2, GLUCOSE, BUN, CREATININE, CA) 2024-04-03 09:21:[address] [facility] VANCOMYCIN RANDOM LEVEL 2024-04-03 09:21:[address] [facility] CBC WITH DIFF 2024-04-03 09:21:[address] [facility] MAGNESIUM 2024-04-03 09:21:00 [facility] BASIC METABOLIC PANEL (NA, K, CL, CO2, GLUCOSE, BUN, CREATININE, CA) 2024-04-03 09:21:[address] [facility] VANCOMYCIN RANDOM LEVEL 2024-04-03 09:21:[address] [facility] CBC WITH DIFF 2024-04-03 09:21:[address] [facility] CBC WITH DIFF 2024-04-03 09:21:00 Olivier [facility] MAGNESIUM 2024-04-03 09:21:00 Olivier [facility] BASIC METABOLIC PANEL (NA, K, CL, CO2, GLUCOSE, BUN, CREATININE, CA) 2024-04-03 09:21:00 Olivier [facility] RANDOM LEVEL 2024-04-03 09:21:[address] [facility] POCT GLUCOSE (AUTOMATED) 2024-04-03 01:06:[address] [facility] POCT GLUCOSE (AUTOMATED) 2024-04-03 01:06:[address] [facility] POCT GLUCOSE (AUTOMATED) 2024-04-03 01:06:[address] [facility] POCT GLUCOSE (AUTOMATED) 2024-04-02 21:17:[address] [facility] POCT GLUCOSE (AUTOMATED) 2024-04-02 21:17:[address] [facility] POCT GLUCOSE (AUTOMATED) 2024-04-02 21:17:[address] [facility] POCT GLUCOSE (AUTOMATED) 2024-04-02 17:04:[address] [facility] POCT GLUCOSE (AUTOMATED) 2024-04-02 17:04:[address] [facility] POCT GLUCOSE (AUTOMATED) 2024-04-02 17:04:00 Roc crandall, [facility] POCT GLUCOSE (AUTOMATED) 2024-04-02 14:05:00 Roc life, [facility] POCT GLUCOSE (AUTOMATED) 2024-04-02 14:05:00 Roc life, [facility] POCT GLUCOSE (AUTOMATED) 2024-04-02 14:05:00 Roc life, [facility] MAGNESIUM 2024-04-02 08:49:00 Ramón Bettencourt [facility] BASIC METABOLIC PANEL (NA, K, CL, CO2, GLUCOSE, BUN, CREATININE, CA) 2024-04-02 08:49:00 Grey Bettencourt [facility] CBC WITH DIFF 2024-04-02 08:49:00 Ramón Bettencourt [facility] HIV 1/2 AG-AB WITH REFLEX 2024-04-02 08:49:00 Aidan Hood [facility] MAGNESIUM 2024-04-02 08:49:00 [facility]ón [facility] BASIC METABOLIC PANEL (NA, K, CL, CO2, GLUCOSE, BUN, CREATININE, CA) 2024-04-02 08:49:00 [facility] 2024-04-02 08:49:00 Ramón Bettencourt [facility] HIV 1/2 AG-AB WITH REFLEX 2024-04-02 08:49:00 Aidan Hood [facility] MAGNESIUM 2024-04-02 08:49:00 Ramón Bettencourt [facility] CBC WITH DIFF 2024-04-02 08:49:00 Ramón [facility]court [facility] BASIC METABOLIC PANEL (NA, K, CL, CO2, GLUCOSE, BUN, CREATININE, CA) 2024-04-02 08:49:00 Grey Bettencourt Abdalla [facility] HIV 1/2 AG-AB WITH REFLEX 2024-04-02 08:49:[address] [facility] LACTIC ACID WHOLE BLOOD 2024-04-02 01:56:00 Shagufta Jane [facility] LACTIC ACID WHOLE BLOOD 2024-04-02 01:56:00 Buck [facility] LACTIC ACID WHOLE BLOOD 2024-04-02 01:56:00 Buck [facility] POCT GLUCOSE (AUTOMATED) 2024-04-02 01:54:00 Roc life, [facility] POCT GLUCOSE (AUTOMATED) 2024-04-02 01:54:00 Roc life, [facility] POCT GLUCOSE (AUTOMATED) 2024-04-02 01:54:00 Roc life, [facility] POCT GLUCOSE (AUTOMATED) 2024-04-01 21:59:00 Roc life, [facility] POCT GLUCOSE (AUTOMATED) 2024-04-01 21:59:00 Roc life, [facility] POCT GLUCOSE (AUTOMATED) 2024-04-01 21:59:00 Roc life, [facility] LACTIC ACID WHOLE BLOOD 2024-04-01 19:26:00 Olivier [facility] LACTIC ACID WHOLE BLOOD 2024-04-01 19:26:00 Olivier [facility] LACTIC ACID WHOLE BLOOD 2024-04-01 19:26:00 Olivier [facility] LACTIC ACID WHOLE BLOOD 2024-04-01 19:26:00 Olivier [facility] POCT GLUCOSE (AUTOMATED) 2024-04-01 16:34:00 Roc life, [facility] LACTIC ACID WHOLE BLOOD 2024-04-01 16:34:00 López, Ham za [facility] POCT GLUCOSE (AUTOMATED) 2024-04-01 16:34:00 Rochernán crandall [facility] LACTIC ACID WHOLE BLOOD 2024-04-01 16:34:[address] [facility] POCT GLUCOSE (AUTOMATED) 2024-04-01 16:34:[address] [facility] LACTIC ACID WHOLE BLOOD 2024-04-01 16:34:[address] [facility] LACTIC ACID WHOLE BLOOD 2024-04-01 16:34:[address] [facility] POCT GLUCOSE (AUTOMATED) 2024-04-01 16:34:[address] [facility] CARDIAC CATHETERIZATION 2024-04-01 14:33:[address] [facility] CARDIAC CATHETERIZATION 2024-04-01 14:33:[address] [facility] CARDIAC CATHETERIZATION 2024-04-01 14:33:[address] [facility] CARDIAC CATHETERIZATION 2024-04-01 14:33:[address] [facility] POCT GLUCOSE (AUTOMATED) 2024-04-01 14:26:[address] [facility] POCT GLUCOSE (AUTOMATED) 2024-04-01 14:26:[address] [facility] POCT GLUCOSE (AUTOMATED) 2024-04-01 14:26:[address] [facility] POCT GLUCOSE (AUTOMATED) 2024-04-01 14:26:[address] [facility] BASIC METABOLIC PANEL (NA, K, CL, CO2, GLUCOSE, BUN, CREATININE, CA) 2024-04-01 05:45:[address] [facility] BASIC METABOLIC PANEL (NA, K, CL, CO2, GLUCOSE, BUN, CREATININE, CA) 2024-04-01 05:45:00 Olivier, [facility] BASIC METABOLIC PANEL (NA, K, CL, CO2, GLUCOSE, BUN, CREATININE, CA) 2024-04-01 05:45:00 Olivier [facility] BASIC METABOLIC PANEL (NA, K, CL, CO2, GLUCOSE, BUN, CREATININE, CA) 2024-04-01 05:45:00 Olivier [facility] POCT GLUCOSE (AUTOMATED) 2024-04-01 01:52:[address] [facility] POCT GLUCOSE (AUTOMATED) 2024-04-01 01:52:[address] [facility] POCT GLUCOSE (AUTOMATED) 2024-04-01 01:52:[address] [facility] POCT GLUCOSE (AUTOMATED) 2024-04-01 01:52:[address] [facility] XR CHEST 1 VW 2024-03-31 22:46:00 Liu Dawn [facility] XR CHEST 1 VW 2024-03-31 22:46:00 Liu Dawn [facility] XR CHEST 1 VW 2024-03-31 22:46:00 Liu Dawn [facility] XR CHEST 1 VW 2024-03-31 22:46:00 López, Liu [facility] POCT GLUCOSE (AUTOMATED) 2024-03-31 21:29:[address] [facility] POCT GLUCOSE (AUTOMATED) 2024-03-31 21:29:[address] [facility] POCT GLUCOSE (AUTOMATED) 2024-03-31 21:29:[address] [facility] POCT GLUCOSE (AUTOMATED) 2024-03-31 21:29:[address] [facility] POCT GLUCOSE (AUTOMATED) 2024-03-31 21:23:[address] [facility] POCT GLUCOSE (AUTOMATED) 2024-03-31 21:23:[address] [facility] POCT GLUCOSE (AUTOMATED) 2024-03-31 21:23:[address] [facility] POCT GLUCOSE (AUTOMATED) 2024-03-31 21:23:[address] [facility] URINALYSIS 2024-03-31 20:39:00 López [facility] EXTRA TUBE URINE CULTURE 2024-03-31 20:39:00 Roc life, [facility] URINALYSIS 2024-03-31 20:39:00 López [facility] EXTRA TUBE URINE CULTURE 2024-03-31 20:39:00 Roc life, [facility] URINALYSIS 2024-03-31 20:39:00 López [facility] EXTRA TUBE URINE CULTURE 2024-03-31 20:39:00 Roc life, [facility] URINALYSIS 2024-03-31 20:39:00 López [facility] EXTRA TUBE URINE CULTURE 2024-03-31 20:39:00 Roc life, [facility] BLOOD CULTURE SCREEN 2024-03-31 19:45:00 López, [facility] BLOOD CULTURE SCREEN 2024-03-31 19:45:00 López [facility] BLOOD CULTURE WORKUP 2024-03-31 19:45:00 López, [facility] BLOOD CULTURE SCREEN 2024-03-31 19:45:00 López, [facility] BLOOD CULTURE WORKUP 2024-03-31 19:45:00 López [facility] BLOOD CULTURE SCREEN 2024-03-31 19:45:00 López, [facility] BLOOD CULTURE WORKUP 2024-03-31 19:45:00 López [facility] POCT GLUCOSE (AUTOMATED) 2024-03-31 16:13:00 Rochernán crandall [facility] POCT GLUCOSE (AUTOMATED) 2024-03-31 16:13:00 [facility] karley [facility] POCT GLUCOSE (AUTOMATED) 2024-03-31 16:13:00 [facility] POCT GLUCOSE (AUTOMATED) 2024-03-31 16:13:00 [facility] BASIC METABOLIC PANEL (NA, K, CL, CO2, GLUCOSE, BUN, CREATININE, CA) 2024-03-31 14:16:00 Grey Bettencourt [facility] CBC WITHOUT DIFF 2024-03-31 14:16:00 Suzanne Aguayo [facility] BASIC METABOLIC PANEL (NA, K, CL, CO2, GLUCOSE, BUN, CREATININE, CA) 2024-03-31 14:16:00 Grey Bettencourt [facility] CBC WITHOUT DIFF 2024-03-31 14:16:00 [facility]IC PAN[facility] (NA, K, CL, CO2, GLUCOSE, BUN, CREATININE, CA) 2024-03-31 14:16:00 Grey Bettencourt [facility] CBC WITHOUT DIFF 2024-03-31 14:16:00 Suzanne Aguayo [facility] BASIC METABOLIC PANEL (NA, K, CL, CO2, GLUCOSE, BUN, CREATININE, CA) 2024-03-31 14:16:00 Grey Bettencourt [facility] CBC WITHOUT DIFF 2024-03-31 14:16:00 Suzanne Aguayo [facility] POCT GLUCOSE (AUTOMATED) 2024-03-31 13:24:00 [facility] karley [facility] POCT GLUCOSE (AUTOMATED) 2024-03-31 13:24:00 [facility] POCT GLUCOSE (AUTOMATED) 2024-03-31 13:24:00 Rochernán crandall [facility] POCT GLUCOSE (AUTOMATED) 2024-03-31 13:24:00 Rochernán crandall [facility] MAGNESIUM 2024-03-31 09:16:00 Olivier [facility] BASIC METABOLIC PANEL (NA, K, CL, CO2, GLUCOSE, BUN, CREATININE, CA) 2024-03-31 09:16:00 Olivier [facility] PROTHROMBIN TIME / INR 2024-03-31 09:16:00 [facility] MAGNESIUM 2024-03-31 09:16:00 Olivier [facility] BASIC METABOLIC PANEL (NA, K, CL, CO2, GLUCOSE, BUN, CREATININE, CA) 2024-03-31 09:16:00 Olivier [facility] PROTHROMBIN TIME / INR 2024-03-31 09:16:00 [facility] MAGNESIUM 2024-03-31 09:16:00 Olivier [facility] BASIC METABOLIC PANEL (NA, K, CL, CO2, GLUCOSE, BUN, CREATININE, CA) 2024-03-31 09:16:00 Olivier [facility] PROTHROMBIN TIME / INR 2024-03-31 09:16:00 [facility] MAGNESIUM 2024-03-31 09:16:00 Olivier [facility] BASIC METABOLIC PANEL (NA, K, CL, CO2, GLUCOSE, BUN, CREATININE, CA) 2024-03-31 09:16:00 Olivier [facility] PROTHROMBIN TIME / INR 2024-03-31 09:16:00 [facility] POCT GLUCOSE (AUTOMATED) 2024-03-31 05:57:[address] [facility] POCT GLUCOSE (AUTOMATED) 2024-03-31 05:57:[address] [facility] POCT GLUCOSE (AUTOMATED) 2024-03-31 05:57:00 Roc life, [facility] POCT GLUCOSE (AUTOMATED) 2024-03-31 05:57:00 Roc life, [facility] POCT GLUCOSE (AUTOMATED) 2024-03-31 03:14:00 Roc life, [facility] POCT GLUCOSE (AUTOMATED) 2024-03-31 03:14:00 Roc life, [facility] POCT GLUCOSE (AUTOMATED) 2024-03-31 03:14:00 Roc life, [facility] POCT GLUCOSE (AUTOMATED) 2024-03-31 03:14:[address] [facility] BASIC METABOLIC PANEL (NA, K, CL, CO2, GLUCOSE, BUN, CREATININE, CA) 2024-03-31 02:16:00 [facility] BASIC METABOLIC PANEL (NA, K, CL, CO2, GLUCOSE, BUN, CREATININE, CA) 2024-03-31 02:16:00 [facility] BASIC METABOLIC PANEL (NA, K, CL, CO2, GLUCOSE, BUN, CREATININE, CA) 2024-03-31 02:16:00 [facility] BASIC METABOLIC PANEL (NA, K, CL, CO2, GLUCOSE, BUN, CREATININE, CA) 2024-03-31 02:16:00 Olivier [facility] POCT GLUCOSE (AUTOMATED) 2024-03-30 21:34:[address] [facility] POCT GLUCOSE (AUTOMATED) 2024-03-30 21:34:[address] [facility] POCT GLUCOSE (AUTOMATED) 2024-03-30 21:34:[address] [facility] POCT GLUCOSE (AUTOMATED) 2024-03-30 21:34:[address] [facility] BASIC METABOLIC PANEL (NA, K, CL, CO2, GLUCOSE, BUN, CREATININE, CA) 2024-03-30 19:33:00 [facility] METABOLIC PANEL (NA, K, CL, CO2, GLUCOSE, BUN, CREATININE, CA) 2024-03-30 19:33:00 Olivier [facility] BASIC METABOLIC PANEL (NA, K, CL, CO2, GLUCOSE, BUN, CREATININE, CA) 2024-03-30 19:33:00 Olivier [facility] BASIC METABOLIC PANEL (NA, K, CL, CO2, GLUCOSE, BUN, CREATININE, CA) 2024-03-30 19:33:00 Olivier [facility] POCT GLUCOSE (AUTOMATED) 2024-03-30 17:46:00 Roc life, [facility] POCT GLUCOSE (AUTOMATED) 2024-03-30 17:46:00 Roc life, [facility] POCT GLUCOSE (AUTOMATED) 2024-03-30 17:46:00 Roc life, [facility] POCT GLUCOSE (AUTOMATED) 2024-03-30 17:46:00 Roc life, [facility] POCT GLUCOSE (AUTOMATED) 2024-03-30 13:09:00 Roc life, [facility] POCT GLUCOSE (AUTOMATED) 2024-03-30 13:09:00 Roc life, [facility] POCT GLUCOSE (AUTOMATED) 2024-03-30 13:09:00 Roc life, [facility] POCT GLUCOSE (AUTOMATED) 2024-03-30 13:09:00 Roc life, [facility] MAGNESIUM 2024-03-30 07:09:00 Olivier [facility] BASIC METABOLIC PANEL (NA, K, CL, CO2, GLUCOSE, BUN, CREATININE, CA) 2024-03-30 07:09:[address] [facility] MAGNESIUM 2024-03-30 07:09:[address] [facility] BASIC METABOLIC PANEL (NA, K, CL, CO2, GLUCOSE, BUN, CREATININE, CA) 2024-03-30 07:09:[address] [facility] MAGNESIUM 2024-03-30 07:09:00 [facility] BASIC METABOLIC PANEL (NA, K, CL, CO2, GLUCOSE, BUN, CREATININE, CA) 2024-03-30 07:09:[address] [facility] BASIC METABOLIC PANEL (NA, K, CL, CO2, GLUCOSE, BUN, CREATININE, CA) 2024-03-30 07:09:[address] [facility] MAGNESIUM 2024-03-30 07:09:00 Olivier [facility] POCT GLUCOSE (AUTOMATED) 2024-03-30 02:37:00 Roc life, [facility] POCT GLUCOSE (AUTOMATED) 2024-03-30 02:37:00 Roc life, [facility] POCT GLUCOSE (AUTOMATED) 2024-03-30 02:37:00 Roc life, [facility] POCT GLUCOSE (AUTOMATED) 2024-03-30 02:37:[address] [facility] MAGNESIUM 2024-03-30 00:58:00 Tyrell Jane [facility] BASIC METABOLIC PANEL (NA, K, CL, CO2, GLUCOSE, BUN, CREATININE, CA) 2024-03-30 00:58:[address] [facility] MAGNESIUM 2024-03-30 00:58:00 Tyrell Jane [facility] BASIC METABOLIC PANEL (NA, K, CL, CO2, GLUCOSE, BUN, CREATININE, CA) 2024-03-30 00:58:[address] [facility] MAGNESIUM 2024-03-30 00:58:00 Tyrell Jane [facility] BASIC METABOLIC PANEL (NA, K, CL, CO2, GLUCOSE, BUN, CREATININE, CA) 2024-03-30 00:58:00 Kart[address]ahir [facility] BASIC METABOLIC PANEL (NA, K, CL, CO2, GLUCOSE, BUN, CREATININE, CA) 2024-03-30 00:58:[address] [facility] MAGNESIUM 2024-03-30 00:58:00 Tyrell Jane [facility] POCT GLUCOSE (AUTOMATED) 2024-03-29 23:10:00 Roc life, [facility] POCT GLUCOSE (AUTOMATED) 2024-03-29 23:10:00 Roc life, [facility] POCT GLUCOSE (AUTOMATED) 2024-03-29 23:10:00 Roc life, [facility] POCT GLUCOSE (AUTOMATED) 2024-03-29 23:10:00 Roc life, [facility] BASIC METABOLIC PANEL (NA, K, CL, CO2, GLUCOSE, BUN, CREATININE, CA) 2024-03-29 19:21:00 [facility] (NA, K, CL, CO2, GLUCOSE, BUN, CREATININE, CA) 2024-03-29 19:21:00 [facility] BASIC METABOLIC PANEL (NA, K, CL, CO2, GLUCOSE, BUN, CREATININE, CA) 2024-03-29 19:21:00 Olivier [facility] BASIC METABOLIC PANEL (NA, K, CL, CO2, GLUCOSE, BUN, CREATININE, CA) 2024-03-29 19:21:00 Olivier [facility] POCT GLUCOSE (AUTOMATED) 2024-03-29 12:39:00 Roc life, [facility] POCT GLUCOSE (AUTOMATED) 2024-03-29 12:39:00 Roc life, [facility] POCT GLUCOSE (AUTOMATED) 2024-03-29 12:39:00 Roc life, [facility] POCT GLUCOSE (AUTOMATED) 2024-03-29 12:39:00 Frank Null [facility] MAGNESIUM 2024-03-29 09:21:00 [facility] (NA, K, CL, CO2, GLUCOSE, BUN, CREATININE, CA) 2024-03-29 09:21:00 Olivier [facility] MAGNESIUM 2024-03-29 09:21:00 [facility] (NA, K, CL, CO2, GLUCOSE, BUN, CREATININE, CA) 2024-03-29 09:21:00 [facility] 2024-03-29 09:21:00 [facility]OL[facility] (NA, K, CL, CO2, GLUCOSE, BUN, CREATININE, CA) 2024-03-29 09:21:00 [facility]ierFormerly [facility] MAGNESIUM 2024-03-29 09:21:00 [facility]OLIC PAN[facility] (NA, K, CL, CO2, GLUCOSE, BUN, CREATININE, CA) 2024-03-29 09:21:00 [facility]OLIC PANEL (NA, K, CL, CO2, GLUCOSE, BUN, CREATININE, CA) 2024-03-29 04:09:00 Olivier [facility] BASIC METABOLIC PANEL (NA, K, CL, CO2, GLUCOSE, BUN, CREATININE, CA) 2024-03-29 04:09:00 [facility]ierFormerly [facility] BASIC METABOLIC PANEL (NA, K, CL, CO2, GLUCOSE, BUN, CREATININE, CA) 2024-03-29 04:09:00 [facility]OL[facility] PAN[facility] (NA, K, CL, CO2, GLUCOSE, BUN, CREATININE, CA) 2024-03-29 04:09:00 [facility]OM[facility]) 2024-03-29 03:09:00 Roc life, [facility] POCT GLUCOSE (AUTOMATED) 2024-03-29 03:09:00 Roc life, [facility] POCT GLUCOSE (AUTOMATED) 2024-03-29 03:09:00 Roc life, [facility] POCT GLUCOSE (AUTOMATED) 2024-03-29 03:09:00 Roc life, [facility] POCT GLUCOSE (AUTOMATED) 2024-03-29 02:57:00 Roc life, [facility] POCT GLUCOSE (AUTOMATED) 2024-03-29 02:57:00 Roc life, [facility] POCT GLUCOSE (AUTOMATED) 2024-03-29 02:57:00 Roc life, [facility] POCT GLUCOSE (AUTOMATED) 2024-03-29 02:57:00 Roc life, [facility] POCT GLUCOSE (AUTOMATED) 2024-03-28 21:32:00 Roc life, [facility] POCT GLUCOSE (AUTOMATED) 2024-03-28 21:32:00 Roc life, [facility] POCT GLUCOSE (AUTOMATED) 2024-03-28 21:32:00 Roc life, [facility] POCT GLUCOSE (AUTOMATED) 2024-03-28 21:32:00 Roc life, [facility] BASIC METABOLIC PANEL (NA, K, CL, CO2, GLUCOSE, BUN, CREATININE, CA) 2024-03-28 20:03:00 Olivier [facility] BASIC METABOLIC PANEL (NA, K, CL, CO2, GLUCOSE, BUN, CREATININE, CA) 2024-03-28 20:03:00 [facility] BASIC METABOLIC PANEL (NA, K, CL, CO2, GLUCOSE, BUN, CREATININE, CA) 2024-03-28 20:03:00 Olivier [facility] BASIC METABOLIC PANEL (NA, K, CL, CO2, GLUCOSE, BUN, CREATININE, CA) 2024-03-28 20:03:00 [facility] POCT GLUCOSE (AUTOMATED) 2024-03-28 16:17:00 Roc life, [facility] POCT GLUCOSE (AUTOMATED) 2024-03-28 16:17:00 Roc life, [facility] POCT GLUCOSE (AUTOMATED) 2024-03-28 16:17:00 Roc life, [facility] POCT GLUCOSE (AUTOMATED) 2024-03-28 16:17:00 Roc life, [facility] POCT GLUCOSE (AUTOMATED) 2024-03-28 13:37:00 Roc life, [facility] POCT GLUCOSE (AUTOMATED) 2024-03-28 13:37:00 Roc life, [facility] POCT GLUCOSE (AUTOMATED) 2024-03-28 13:37:00 Roc life, [facility] POCT GLUCOSE (AUTOMATED) 2024-03-28 13:37:00 Roc life, [facility] MAGNESIUM 2024-03-28 08:23:[address] [facility] BASIC METABOLIC PANEL (NA, K, CL, CO2, GLUCOSE, BUN, CREATININE, CA) 2024-03-28 08:23:[address] [facility] MAGNESIUM 2024-03-28 08:23:[address] [facility] BASIC METABOLIC PANEL (NA, K, CL, CO2, GLUCOSE, BUN, CREATININE, CA) 2024-03-28 08:23:[address] [facility] MAGNESIUM 2024-03-28 08:23:[address] [facility] BASIC METABOLIC PANEL (NA, K, CL, CO2, GLUCOSE, BUN, CREATININE, CA) 2024-03-28 08:23:[address] [facility] BASIC METABOLIC PANEL (NA, K, CL, CO2, GLUCOSE, BUN, CREATININE, CA) 2024-03-28 08:23:[address] [facility] MAGNESIUM 2024-03-28 08:23:[address] [facility] POCT GLUCOSE (AUTOMATED) 2024-03-28 00:56[facility]00 [facility] 2024-03-28 00:56:00 Grabiel [facility] POCT GLUCOSE (AUTOMATED) 2024-03-28 00:56:00 Grabiel [facility] POCT GLUCOSE (AUTOMATED) 2024-03-28 00:56:00 Grabiel [facility] POCT GLUCOSE (AUTOMATED) 2024-03-27 21:45:00 Grabiel [facility] POCT GLUCOSE (AUTOMATED) 2024-03-27 21:45:00 Grabiel [facility] POCT GLUCOSE (AUTOMATED) 2024-03-27 21:45:00 Grabiel [facility] POCT GLUCOSE (AUTOMATED) 2024-03-27 21:45:00 Grabiel [facility] POCT GLUCOSE (AUTOMATED) 2024-03-27 17:45:00 Grabiel [facility] POCT GLUCOSE (AUTOMATED) 2024-03-27 17:45:00 Grabiel [facility] POCT GLUCOSE (AUTOMATED) 2024-03-27 17:45:00 Grabiel [facility] POCT GLUCOSE (AUTOMATED) 2024-03-27 17:45:00 Grabiel [facility] POCT GLUCOSE (AUTOMATED) 2024-03-27 13:13:00 Grabiel [facility] POCT GLUCOSE (AUTOMATED) 2024-03-27 13:13:00 Grabiel [facility] POCT GLUCOSE (AUTOMATED) 2024-03-27 13:13:[address] [facility] POCT GLUCOSE (AUTOMATED) 2024-03-27 13:13:[address] [facility] PHOSPHORUS 2024-03-27 09:05:00 Martines [facility] MAGNESIUM 2024-03-27 09:05:00 Martines, [facility] COMP. METABOLIC PANEL ([id number]) 2024-03-27 09:05:00 Martines, [facility] CBC WITH DIFF 2024-03-27 09:05:00 Martines, [facility] PHOSPHORUS 2024-03-27 09:05:00 Martines, [facility] MAGNESIUM 2024-03-27 09:05:00 Martines, [facility] COMP. METABOLIC PANEL ([id number]) 2024-03-27 09:05:00 Martines, [facility] CBC WITH DIFF 2024-03-27 09:05:00 Martines, [facility] PHOSPHORUS 2024-03-27 09:05:00 Martines, [facility] MAGNESIUM 2024-03-27 09:05:00 Martines, [facility] COMP. METABOLIC PANEL ([id number]) 2024-03-27 09:05:00 Martines, [facility] CBC WITH DIFF 2024-03-27 09:05:00 Martines [facility] MAGNESIUM 2024-03-27 09:05:00 Martines, [facility] PHOSPHORUS 2024-03-27 09:05:00 Martines, Premier [facility] COMP. METABOLIC PANEL ([id number]) 2024-03-27 09:05:00 Martines, [facility] CBC WITH DIFF 2024-03-27 09:05:00 Martines, [facility] LOWER EXTREMITY VEIN WITH COMPRESSION BILATERAL (ONLY FOR RULE OUT DVT) 2024-03-27 06:16:38 Martines, [facility] LOWER EXTREMITY VEIN WITH COMPRESSION BILATERAL (ONLY FOR RULE OUT DVT) 2024-03-27 06:16:38 Martines, [facility] LOWER EXTREMITY VEIN WITH COMPRESSION BILATERAL (ONLY FOR RULE OUT DVT) 2024-03-27 06:16:38 Martines, [facility] LOWER EXTREMITY VEIN WITH COMPRESSION BILATERAL (ONLY FOR RULE OUT DVT) 2024-03-27 06:16:38 Martines, [facility] BASIC METABOLIC PANEL (NA, K, CL, CO2, GLUCOSE, BUN, CREATININE, CA) 2024-03-27 02:46:00 Martines, [facility] BASIC METABOLIC PANEL (NA, K, CL, CO2, GLUCOSE, BUN, CREATININE, CA) 2024-03-27 02:46:00 Martines [facility] BASIC METABOLIC PANEL (NA, K, CL, CO2, GLUCOSE, BUN, CREATININE, CA) 2024-03-27 02:46:00 Martines, [facility] BASIC METABOLIC PANEL (NA, K, CL, CO2, GLUCOSE, BUN, CREATININE, CA) 2024-03-27 02:46:00 Conrad [facility] POCT GLUCOSE (AUTOMATED) 2024-03-27 00:46:00 [facility] 2024-03-27 00:46:00 [facility] 2024-03-27 00:46:00 [facility] 2024-03-27 00:46:00 Lew Gill [facility] POCT GLUCOSE (AUTOMATED) 2024-03-26 21:16:00 [facility] 2024-03-26 21:16:00 Lew Gill [facility] POCT GLUCOSE (AUTOMATED) 2024-03-26 21:16:00 [facility] 2024-03-26 21:16:00 Lew Gill [facility] POCT GLUCOSE (AUTOMATED) 2024-03-26 18:02:00 [facility] 2024-03-26 18:02:00 GrabielLew [facility] POCT GLUCOSE (AUTOMATED) 2024-03-26 18:02:00 Lew Gill [facility] POCT GLUCOSE (AUTOMATED) 2024-03-26 18:02:00 Grabiel Lew [facility] FERRITIN SERUM 2024-03-26 17:54:00 Godfrey Martines [facility] BASIC METABOLIC PANEL (NA, K, CL, CO2, GLUCOSE, BUN, CREATININE, CA) 2024-03-26 17:54:00 Martines, [facility] IRON PANEL 2024-03-26 17:54:00 Godfrey Martines [facility] LACTIC ACID WHOLE BLOOD 2024-03-26 17:54:00 [facility] 2024-03-26 17:54:00 Godfrey Martines [facility] BASIC METABOLIC PANEL (NA, K, CL, CO2, GLUCOSE, BUN, CREATININE, CA) 2024-03-26 17:54:00 Conrad [facility] IRON PANEL 2024-03-26 17:54:00 Godfrey Martines [facility] LACTIC ACID WHOLE BLOOD 2024-03-26 17:54:00 [facility] 2024-03-26 17:54:00 Godfrey Martines [facility] BASIC METABOLIC PANEL (NA, K, CL, CO2, GLUCOSE, BUN, CREATININE, CA) 2024-03-26 17:54:00 Conrad [facility] IRON PANEL 2024-03-26 17:54:00 Godfrey Martines [facility] LACTIC ACID WHOLE BLOOD 2024-03-26 17:54:00 [facility] 2024-03-26 17:54:00 Godfrey Martines [facility] IRON PANEL 2024-03-26 17:54:00 Godfrey Martines [facility] LACTIC ACID WHOLE BLOOD 2024-03-26 17:54:00 [facility]IC PANEL (NA, K, CL, CO2, GLUCOSE, BUN, CREATININE, CA) 2024-03-26 17:54:[address] [facility] POCT GLUCOSE (AUTOMATED) 2024-03-26 13:04:00 Lew Gill [facility] POCT GLUCOSE (AUTOMATED) 2024-03-26 13:04:00 Lew Gill [facility] POCT GLUCOSE (AUTOMATED) 2024-03-26 13:04:00 [facility]) 2024-03-26 13:04:00 Lew Gill [facility] LACTIC ACID WHOLE BLOOD 2024-03-26 11:06:00 Scott Pritchard [facility] LACTIC ACID WHOLE BLOOD 2024-03-26 11:06:00 Scott Pritchard [facility] LACTIC ACID WHOLE BLOOD 2024-03-26 11:06:00 Scott Pritchard [facility] LACTIC ACID WHOLE BLOOD 2024-03-26 11:06:00 Scott Pritchard [facility] BASIC METABOLIC PANEL (NA, K, CL, CO2, GLUCOSE, BUN, CREATININE, CA) 2024-03-26 09:57:[address] [facility] CBC WITH DIFF 2024-03-26 09:57:00 Yudy Pritchard [facility] BASIC METABOLIC PANEL (NA, K, CL, CO2, GLUCOSE, BUN, CREATININE, CA) 2024-03-26 09:57:[address] [facility] CBC WITH DIFF 2024-03-26 09:57:00 Yudy Pritchard [facility] BASIC METABOLIC PANEL (NA, K, CL, CO2, GLUCOSE, BUN, CREATININE, CA) 2024-03-26 09:57:[address] [facility] CBC WITH DIFF 2024-03-26 09:57:00 Yudy Pritchard [facility] BASIC METABOLIC PANEL (NA, K, CL, CO2, GLUCOSE, BUN, CREATININE, CA) 2024-03-26 09:57:[address] [facility] CBC WITH DIFF 2024-03-26 09:57:00 [facility] 2024-03-26 05:28:00 Lew Gill [facility] POCT GLUCOSE (AUTOMATED) 2024-03-26 05:28:00 Lew Gill [facility] POCT GLUCOSE (AUTOMATED) 2024-03-26 05:28:00 Lew Gill [facility] POCT GLUCOSE (AUTOMATED) 2024-03-26 05:28:00 Lew Gill [facility] BASIC METABOLIC PANEL (NA, K, CL, CO2, GLUCOSE, BUN, CREATININE, CA) 2024-03-26 02:18:00 Jadon [facility] BASIC METABOLIC PANEL (NA, K, CL, CO2, GLUCOSE, BUN, CREATININE, CA) 2024-03-26 02:18:00 Jadon [facility] BASIC METABOLIC PANEL (NA, K, CL, CO2, GLUCOSE, BUN, CREATININE, CA) 2024-03-26 02:18:00 Jadon [facility] BASIC METABOLIC PANEL (NA, K, CL, CO2, GLUCOSE, BUN, CREATININE, CA) 2024-03-26 02:18:00 Jadon [facility] POCT GLUCOSE (AUTOMATED) 2024-03-26 01:42:00 Lew Gill [facility] POCT GLUCOSE (AUTOMATED) 2024-03-26 01:42:00 Lew Gill [facility] POCT GLUCOSE (AUTOMATED) 2024-03-26 01:42:00 [facility]OMATED) 2024-03-26 01:42:00 [facility] LACT[facility] WHOLE BLOOD 2024-03-25 21:17:00 Callie Diop [facility] LACTIC ACID WHOLE BLOOD 2024-03-25 21:17:00 Callie Diop [facility] LACTIC ACID WHOLE BLOOD 2024-03-25 21:17:00 Callie Diop [facility] LACTIC ACID WHOLE BLOOD 2024-03-25 21:17:00 [facility] ([facility]OM[facility]) 2024-03-25 21:03:00 Lew Gill [facility] POCT GLUCOSE (AUTOMATED) 2024-03-25 21:03:00 Grabiel [facility] POCT GLUCOSE (AUTOMATED) 2024-03-25 21:03:00 [facility] ([facility]OMATED) 2024-03-25 21:03:00 Grabiel [facility] POCT GLUCOSE (AUTOMATED) 2024-03-25 17:38:00 Grabiel [facility] POCT GLUCOSE (AUTOMATED) 2024-03-25 17:38:00 Grabiel [facility] POCT GLUCOSE (AUTOMATED) 2024-03-25 17:38:00 Grabiel [facility] POCT GLUCOSE (AUTOMATED) 2024-03-25 17:38:00 Grabiel [facility] BASIC METABOLIC PANEL (NA, K, CL, CO2, GLUCOSE, BUN, CREATININE, CA) 2024-03-25 16:57:00 [facility]OL[facility] PAN[facility] (NA, K, CL, CO2, GLUCOSE, BUN, CREATININE, CA) 2024-03-25 16:57:00 Jadon [facility] BASIC METABOLIC PANEL (NA, K, CL, CO2, GLUCOSE, BUN, CREATININE, CA) 2024-03-25 16:57:00 Jadon [facility] BASIC METABOLIC PANEL (NA, K, CL, CO2, GLUCOSE, BUN, CREATININE, CA) 2024-03-25 16:57:00 [facility] ([facility]OM[facility]) 2024-03-25 12:39:00 Grabiel [facility] POCT GLUCOSE (AUTOMATED) 2024-03-25 12:39:00 Grabiel [facility] POCT GLUCOSE (AUTOMATED) 2024-03-25 12:39:00 Grabiel [facility] POCT GLUCOSE (AUTOMATED) 2024-03-25 12:39:[address] [facility] MRSA / MSSA SCREEN BY PCR, [facility] 2024-03-25 07:56:[address] [facility] MRSA / MSSA SCREEN BY PCR, [facility] 2024-03-25 07:56:00 [facility] MRSA / MSSA SCREEN BY PCR, [facility] 2024-03-25 07:56:00 David [facility] MRSA / MSSA SCREEN BY PCR, [facility] 2024-03-25 07:56:[address] [facility] HB ECG ROUTINE & RHYTHM STRIP 2024-03-25 03:40:04 Francheska [facility] HB ECG ROUTINE & RHYTHM STRIP 2024-03-25 03:40:04 Francheska [facility] HB ECG ROUTINE & RHYTHM STRIP 2024-03-25 03:40:04 Francheska [facility] HB ECG ROUTINE & RHYTHM STRIP 2024-03-25 03:40:04 Francheska [facility] AC PANEL 21 + LACTIC ACID 2024-03-25 03:04:00 Francheska [facility] AC PANEL 21 + LACTIC ACID 2024-03-25 03:04:00 Francheska [facility] AC PANEL 21 + LACTIC ACID 2024-03-25 03:04:00 Francheska [facility] AC PANEL 21 + LACTIC ACID 2024-03-25 03:04:00 Francheska [facility] HEPATIC FUNCTION PANEL ([id number]) (ALB,T.PRO,BILI T,BU/BC,ALT,AST,ALK PHOS) 2024-03-25 03:03:00 Francheska [facility] BASIC METABOLIC PANEL (NA, K, CL, CO2, GLUCOSE, BUN, CREATININE, CA) 2024-03-25 03:03:00 Francheska [facility] CBC WITH DIFF 2024-03-25 03:03:00 Yudy Pritchard [facility] POCT GLUCOSE (AUTOMATED) 2024-03-25 03:03:[address] [facility] HEPATIC FUNCTION PANEL ([id number]) (ALB,T.PRO,BILI T,BU/BC,ALT,AST,ALK PHOS) 2024-03-25 03:03:[address] [facility] BASIC METABOLIC PANEL (NA, K, CL, CO2, GLUCOSE, BUN, CREATININE, CA) 2024-03-25 03:03:[address] [facility] CBC WITH DIFF 2024-03-25 03:03:00 Yudy Pritchard [facility] POCT GLUCOSE (AUTOMATED) 2024-03-25 03:03:[address] [facility] HEPATIC FUNCTION PANEL ([id number]) (ALB,T.PRO,BILI T,BU/BC,ALT,AST,ALK PHOS) 2024-03-25 03:03:[address] [facility] BASIC METABOLIC PANEL (NA, K, CL, CO2, GLUCOSE, BUN, CREATININE, CA) 2024-03-25 03:03:[address] [facility] CBC WITH DIFF 2024-03-25 03:03:00 Yudy Pritchard [facility] POCT GLUCOSE (AUTOMATED) 2024-03-25 03:03:[address] [facility] CBC WITH DIFF 2024-03-25 03:03:00 Francheska [facility] BASIC METABOLIC PANEL (NA, K, CL, CO2, GLUCOSE, BUN, CREATININE, CA) 2024-03-25 03:03:[address] [facility] HEPATIC FUNCTION PANEL ([id number]) (ALB,T.PRO,BILI T,BU/BC,ALT,AST,ALK PHOS) 2024-03-25 03:03:[address] [facility] POCT GLUCOSE (AUTOMATED) 2024-03-25 03:03:[address] [facility] POCT GLUCOSE (AUTOMATED) 2024-03-24 22:12:00 Raúl Whitmore [facility] POCT GLUCOSE (AUTOMATED) 2024-03-24 22:12:00 Raúl Whitmore [facility] POCT GLUCOSE (AUTOMATED) 2024-03-24 22:12:00 [address]úl Whitmore [facility] POCT GLUCOSE (AUTOMATED) 2024-03-24 22:12:00 Raúl Whitmore [facility] DUPLEX VENOUS ARM RIGHT - BY VASCULAR LAB 2024-03-24 17:21:[address] [facility] DUPLEX VENOUS ARM RIGHT - BY VASCULAR LAB 2024-03-24 17:21:[address] [facility] DUPLEX VENOUS ARM RIGHT - BY VASCULAR LAB 2024-03-24 17:21:[address] [facility] DUPLEX VENOUS ARM RIGHT - BY VASCULAR LAB 2024-03-24 17:21:[address] [facility] TRANSTHORACIC ECHO (TTE) COMPLETE W/ CONTRAST 2024-03-24 14:45:00 [facility] (TTE) COMPLETE W/ CONTRAST 2024-03-24 14:45:00 [facility] (TTE) COMPLETE W/ CONTRAST 2024-03-24 14:45:00 Myranda [facility] TRANSTHORACIC ECHO (TTE) COMPLETE W/ CONTRAST 2024-03-24 14:45:[address] [facility] POCT GLUCOSE (AUTOMATED) 2024-03-24 12:45:00 [facility] 2024-03-24 12:45:00 [facility] PO[facility]UCOSE (AUTOMATED) 2024-03-24 12:45:00 [facility] POCT GLUCOSE (AUTOMATED) 2024-03-24 12:45:00 [facility] MAGNESIUM 2024-03-24 09:04:00 Sunil Whitmore [facility] BASIC METABOLIC PANEL (NA, K, CL, CO2, GLUCOSE, BUN, CREATININE, CA) 2024-03-24 09:04:[address] [facility] LIPID PANEL ([id number])(TOTAL CHOLESTEROL, TRIGLYCERIDES, HDL) 2024-03-24 09:04:00 [facility]FF 2024-03-24 09:04:00 Sunil Whitmore [facility] N-TERMINAL PRO-BNP 2024-03-24 09:04:00 [facility] 2024-03-24 09:04:00 [facility]OLIC PANEL (NA, K, CL, CO2, GLUCOSE, BUN, CREATININE, CA) 2024-03-24 09:04:00 [facility] LIPID PANEL ([id number])(TOTAL CHOLESTEROL, TRIGLYCERIDES, HDL) 2024-03-24 09:04:00 [facility] WITH DIFF 2024-03-24 09:04:00 Sunil Whitmore [facility] N-TERMINAL PRO-BNP 2024-03-24 09:04:00 [facility] 2024-03-24 09:04:00 Sunil Whitmore [facility] BASIC METABOLIC PANEL (NA, K, CL, CO2, GLUCOSE, BUN, CREATININE, CA) 2024-03-24 09:04:00 [facility] LIPID PANEL ([id number])(TOTAL CHOLESTEROL, TRIGLYCERIDES, HDL) 2024-03-24 09:04:00 [facility] WITH DIFF 2024-03-24 09:04:00 Sunil Whitmore [facility] N-TERMINAL PRO-BNP 2024-03-24 09:04:00 Myranda [facility] LIPID PANEL ([id number])(TOTAL CHOLESTEROL, TRIGLYCERIDES, HDL) 2024-03-24 09:04:00 Myranda [facility] BASIC METABOLIC PANEL (NA, K, CL, CO2, GLUCOSE, BUN, CREATININE, CA) 2024-03-24 09:04:00 [facility] N-TERMINAL PRO-BNP 2024-03-24 09:04:00 Myranda [facility] MAGNESIUM 2024-03-24 09:04:00 Sunil Whitmore [facility] CBC WITH DIFF 2024-03-24 09:04:00 Sunil Whitmore [facility] POCT GLUCOSE (AUTOMATED) 2024-03-24 03:28:00 [facility] POCT GLUCOSE (AUTOMATED) 2024-03-24 03:28:00 [facility] POCT GLUCOSE (AUTOMATED) 2024-03-24 03:28:00 [facility] POCT GLUCOSE (AUTOMATED) 2024-03-24 03:28:00 [facility] POCT GLUCOSE (AUTOMATED) 2024-03-24 02:44:00 [facility] POCT GLUCOSE (AUTOMATED) 2024-03-24 02:44:00 [facility] POCT GLUCOSE (AUTOMATED) 2024-03-24 02:44:00 [facility] POCT GLUCOSE (AUTOMATED) 2024-03-24 02:44:00 [facility] POCT GLUCOSE (AUTOMATED) 2024-03-24 01:26:00 [facility] POCT GLUCOSE (AUTOMATED) 2024-03-24 01:26:00 [facility] POCT GLUCOSE (AUTOMATED) 2024-03-24 01:26:00 [facility] POCT GLUCOSE (AUTOMATED) 2024-03-24 01:26:00 [facility] POCT GLUCOSE (AUTOMATED) 2024-03-23 23:27:00 [facility] POCT GLUCOSE (AUTOMATED) 2024-03-23 23:27:00 [facility] POCT GLUCOSE (AUTOMATED) 2024-03-23 23:27:00 [facility] POCT GLUCOSE (AUTOMATED) 2024-03-23 23:27:00 [facility] XR CHEST 1 VW 2024-03-23 20:13:52 Sayra Fox [facility] XR CHEST 1 VW 2024-03-23 20:13:52 Sayra Fox [facility] XR CHEST 1 VW 2024-03-23 20:13:52 Sayra Fox [facility] XR CHEST 1 VW 2024-03-23 20:13:52 [facility]-03-23 19:44:00 Sayra Fox [facility] TROPONIN I 2024-03-23 19:44:00 Sayra Fox [facility] COMP. METABOLIC PANEL ([id number]) 2024-03-23 19:44:[address] [facility] CBC WITH DIFF 2024-03-23 19:44:00 Sayra Fox [facility] GLYCOSYLATED HEMOGLOBIN (A1C) 2024-03-23 19:44:[address] [facility] N-TERMINAL PRO-BNP 2024-03-23 19:44:[address] [facility] MAGNESIUM 2024-03-23 19:44:00 Sayra Fox [facility] TROPONIN I 2024-03-23 19:44:00 [facility]. METABOLIC PANEL ([id number]) 2024-03-23 19:44:[address] [facility] CBC WITH DIFF 2024-03-23 19:44:00 [facility] GLYCOS[facility]OGLOBIN (A1C) 2024-03-23 19:44:[address] [facility] N-TERMINAL PRO-BNP 2024-03-23 19:44:[address] [facility] MAGNESIUM 2024-03-23 19:44:00 [facility] 2024-03-23 19:44:00 Sayra Fox [facility] COMP. METABOLIC PANEL ([id number]) 2024-03-23 19:44:[address] [facility] CBC WITH DIFF 2024-03-23 19:44:00 Sayra Fox [facility] GLYCOSYLATED HEMOGLOBIN (A1C) 2024-03-23 19:44:[address] [facility] N-TERMINAL PRO-BNP 2024-03-23 19:44:[address] [facility] CBC WITH DIFF 2024-03-23 19:44:00 Sayra Fox [facility] COMP. METABOLIC PANEL ([id number]) 2024-03-23 19:44:[address] [facility] TROPONIN I 2024-03-23 19:44:00 Sayra Fox [facility] N-TERMINAL PRO-BNP 2024-03-23 19:44:[address] [facility] MAGNESIUM 2024-03-23 19:44:00 Sayra Fox [facility] GLYCOSYLATED HEMOGLOBIN (A1C) 2024-03-23 19:44:[address] [facility] HB ECG ROUTINE & RHYTHM STRIP 2024-03-23 19:33:[address] [facility] HB ECG ROUTINE & RHYTHM STRIP 2024-03-23 19:33:[address] [facility] HB ECG ROUTINE & RHYTHM STRIP 2024-03-23 19:33:[address] [facility] HB ECG ROUTINE & RHYTHM STRIP 2024-03-23 19:33:[address] [facility] CT ABDOMEN PELVIS W CONTRAST 2024-03-03 21:30:[address] [facility] CT ABDOMEN PELVIS W CONTRAST 2024-03-03 21:30:14 [facility] 2024-03-03 21:06:00 Ronnell Shell [facility] COMP. METABOLIC PANEL ([id number]) 2024-03-03 21:06:00 [facility] WITH DIFF 2024-03-03 21:06:00 Ronnell Shell [facility] N-TERMINAL PRO-BNP 2024-03-03 21:06:[address] [facility] CBC WITH DIFF 2024-03-03 21:06:[address] [facility] COMP. METABOLIC PANEL ([id number]) 2024-03-03 21:06:[address] [facility] N-TERMINAL PRO-BNP 2024-03-03 21:06:00 Singer [facility] TROPONIN I 2024-03-03 21:06:00 [facility] XR CHEST 1 VW 2024-03-03 20:17:[address] [facility] XR CHEST 1 VW 2024-03-03 20:17:[address] [facility] URINALYSIS 2024-03-03 20:12:00 Ronnell Shell [facility] URINALYSIS 2024-03-03 20:12:00 [facility] & RHYTHM STRIP 2024-03-03 20:05:06 Singer [facility] INGUINAL HERNIORRHAPHY 2023-07-06 17:02:[address] [facility] DAY SURGERY - ADC 2023-07-06 05:01:00 Doctor Ghazala ssigned, [place] [facility] PATIENT QUESTIONNAIRE 2023-06-01 05:01:00 Doctor Unassigned, [place] [facility] CT ABDOMEN PELVIS WO CONTRAST 2023-05-21 17:41:[address] [facility] REFERRAL- REQUEST/RESPONSE 2023-05-10 05:01:00 Doctor Unassigned, [place] [facility] HCV ANTIBODY 2023-04-12 15:19:00 Femi Disla [facility] PATIENT FINANCIAL POLICY 2023-04-12 13:27:39 Doctor Unassigned, [place] [facility] PHYSICIAN CERTIFICATION STATEMENT 2023-03-22 05:01:00 Doctor Unassigned, [place] [facility] EXTERNAL PROVIDER RECORDS 2023-02-05 05:01:00 Do ctor Unassigned, [place] [facility] MAGNESIUM 2023-01-24 10:06:00 Esther Gill [facility] BASIC METABOLIC PANEL (NA, K, CL, CO2, GLUCOSE, BUN, CREATININE, CA) 2023-01-24 10:06:[address] [facility] HB ECG ROUTINE & RHYTHM STRIP 2023-01-23 13:47:[address] [facility] MAGNESIUM 2023-01-23 09:19:00 Esther Gill [facility] BASIC METABOLIC PANEL (NA, K, CL, CO2, GLUCOSE, BUN, CREATININE, CA) 2023-01-23 09:19:00 [facility]23-01-23 09:19:00 Chidi Gillesha [facility] BASIC METABOLIC PANEL (NA, K, CL, CO2, GLUCOSE, BUN, CREATININE, CA) 2023-01-23 09:19:00 [facility] 2023-01-23 06:01:00 Doctor Unassigned, [place] [facility] REFERRAL- REQUEST/RESPONSE 2023-01-23 06:01:00 Doctor Unassigned, [place] [facility] ACTIVATED PARTIAL THRMPLAS KENDELL 2023-01-22 19:38:00 Christopher Ortiz [facility] ACTIVATED PARTIAL THRMPLAS KENDELL 2023-01-22 19:38:00 Christopher Ortiz [facility] ACTIVATED PARTIAL THRMPLAS KENDELL 2023-01-22 17:04:00 Christopher Ortiz [facility] ACTIVATED PARTIAL THRMPLAS KENDELL 2023-01-22 17:04:[address] [facility] CARDIAC CATHETERIZATION 2023-01-22 14:48:33 Hernán Nolan [facility] CARDIAC CATHETERIZATION 2023-01-22 14:48:33 Hernán Nolan [facility] CARDIAC CATHETERIZATION 2023-01-22 14:48:33 Hernán Nolan [facility] CARDIAC CATHETERIZATION 2023-01-22 14:48:33 Hernán Nolan [facility] CARDIAC CATHETERIZATION 2023-01-22 14:48:33 Hernán Nolan [facility] CARDIAC CATHETERIZATION 2023-01-22 14:48:33 Hernán Nolan [facility] CARDIAC CATHETERIZATION 2023-01-22 14:48:33 Hernán Nolan [facility] CARDIAC CATHETERIZATION 2023-01-22 14:48:33 Hernán Nolan [facility] POCT ACT LOW RANGE 2023-01-22 14:47:00 [facility]-01-22 14:47:[address] [facility] POCT ACT LOW RANGE 2023-01-22 14:27:[address] [facility] POCT ACT LOW RANGE 2023-01-22 14:27:[address] [facility] MAGNESIUM 2023-01-22 10:47:00 Esther Gill [facility] BASIC METABOLIC PANEL (NA, K, CL, CO2, GLUCOSE, BUN, CREATININE, CA) 2023-01-22 10:47[facility]00 [facility]23-01-22 10:47:00 Esther Gill [facility] N-TERMINAL PRO-BNP 2023-01-22 10:47:00 Esther Gill [facility]22 10:47:00 Esther Gill [facility] BASIC METABOLIC PANEL (NA, K, CL, CO2, GLUCOSE, BUN, CREATININE, CA) 2023-01-22 10:47:00 [facility]FF 2023-01-22 10:47:00 Esther Gill [facility] N-TERMINAL PRO-BNP 2023-01-22 10:47:00 Esther Gill [facility] POCT GLUCOSE (AUTOMATED) 2023-01-21 13:41:00 [facility]) 2023-01-21 13:41:00 [facility] URINE DRUG (IMMUNOASSAY) - COMPREHENSIVE DRUG SCREEN 2023-01-21 08:41:00 Grabiel [facility] URINE DRUG (IMMUNOASSAY) - COMPREHENSIVE DRUG SCREEN 2023-01-21 08:41:00 Grabiel [facility] MAGNESIUM 2023-01-21 08:39:00 Grabiel [facility] BASIC METABOLIC PANEL (NA, K, CL, CO2, GLUCOSE, BUN, CREATININE, CA) 2023-01-21 08:39:00 Grabiel [facility] SERUM DRUG (IMMUNOASSAY) - COMPREHENSIVE DRUG SCREEN 2023-01-21 08:39:00 Grabiel [facility] MAGNESIUM 2023-01-21 08:39:00 Grabiel [facility] BASIC METABOLIC PANEL (NA, K, CL, CO2, GLUCOSE, BUN, CREATININE, CA) 2023-01-21 08:39:00 Grabiel [facility] SERUM DRUG (IMMUNOASSAY) - COMPREHENSIVE DRUG SCREEN 2023-01-21 08:39:00 Grabiel [facility] MAGNESIUM 2023-01-20 11:22:[address] [facility] BASIC METABOLIC PANEL (NA, K, CL, CO2, GLUCOSE, BUN, CREATININE, CA) 2023-01-20 11:22:[address] [facility] CBC WITH DIFF 2023-01-20 11:22:[address] [facility] MAGNESIUM 2023-01-20 11:22:[address] [facility] BASIC METABOLIC PANEL (NA, K, CL, CO2, GLUCOSE, BUN, CREATININE, CA) 2023-01-20 11:22:[address] [facility] CBC WITH DIFF 2023-01-20 11:22:[address] [facility] TRANSTHORACIC ECHO (TTE) COMPLETE W/ CONTRAST 2023-01-19 20:22:[address] [facility] TRANSTHORACIC ECHO (TTE) COMPLETE W/ CONTRAST 2023-01-19 20:22:[address] [facility] BASIC METABOLIC PANEL (NA, K, CL, CO2, GLUCOSE, BUN, CREATININE, CA) 2023-01-19 18:40:[address] [facility] LIPID PANEL (06812)(TOTAL CHOLESTEROL, TRIGLYCERIDES, HDL) 2023-01-19 18:40:00 Christopher Ortiz Estiven [facility] CBC WITH DIFF 2023-01-19 18:40:[address] [facility] GLYCOSYLATED HEMOGLOBIN (A1C) 2023-01-19 18:40:[address] [facility] PROTHROMBIN TIME / INR 2023-01-19 18:40:[address] K[address]y [address] Estiven [facility] N-TERMINAL PRO-BNP 2023-01-19 18:40:[address] [facility] BASIC METABOLIC PANEL (NA, K, CL, CO2, GLUCOSE, BUN, CREATININE, CA) 2023-01-19 18:40:[address] [facility] LIPID PANEL (65401)(TOTAL CHOLESTEROL, TRIGLYCERIDES, HDL) 2023-01-19 18:40:[address] [facility] CBC WITH DIFF 2023-01-19 18:40:[address] [facility] GLYCOSYLATED HEMOGLOBIN (A1C) 2023-01-19 18:40:[address] [facility] PROTHROMBIN TIME / INR 2023-01-19 18:40:00 Kasey Ortiz [facility] N-TERMINAL PRO-BNP 2023-01-19 18:40:[address] [facility] XR CHEST 1 VW 2023-01-19 17:47:[address] [facility] XR CHEST 1 VW 2023-01-19 17:47:[address] [facility] MAGNESIUM 2023-01-05 18:12:00 [facility] 2023-01-05 18:12:00 Sayra Fox Un [facility] COMP. METABOLIC PANEL (37041) 2023-01-05 18:12:[address] [facility] CBC WITH DIFF 2023-01-05 18:12:00 [facility] N-TERMINAL [facility]-BNP 2023-01-05 18:12:[address] [facility] CONSENT/REFUSAL FOR DIAGNOSIS AND TREATMENT 2023-01-05 17:02:24 Doctor Unassigned, [place] [facility] REFERRAL- REQUEST/RESPONSE 2022-12-29 06:01:00 Doctor Unassigned, [place] [facility] ASSIGNMENT OF BENEFITS 2022-12-21 16:16:06 Docto r Unassigned, [place] [facility] Encounters Start Date/Time End Date/Time Encounter Type Admission Type Attending Clinicians Care Facility Care Department Encounter ID Source 2024-03-23 14:31:00 Hospital Encounter Sayra Fox David Oville, Sunil Gill, Nigel Lr, Mike Miki Coley, Negin Nowak 1.2.840.1 14513.1.1 3.104.2.7 .3.374233 .8 [id number] [facility] 2023-06-08 11:26:19 Outpatient R LEYDA CORTÉS CHOCKALINGA M [facility] CCA [id number] [facility] 2023-01-16 16:15:19 Inpatient R FRANK LR [facility] MCA [id number] [facility] 2024-05-22 00:00:00 2024-05-22 17:05:16 [facility] T[facility] 1.2840.114 350.1.13.10 4.2.7.2.686 [id number] [facility] 2024-05-22 16:12:00 2024-05-22 16:54:00 Emergency X ISSAC SCHAFFER ERICCA [facility] ERT [id number] [facility] 2024-05-22 16:12:00 2024-05-22 16:54:00 Emergency Issac Schaffer [facility] 1.2.840.114 350.1.13.10 4.2.7.2.686 [id number] [facility] 2024-05-20 00:00:00 2024-05-22 16:47:04 Telephone [facility] 1.2840.114 350.1.13.10 4.2.7.2.686 [id number] [id number] [facility] 2024-05-21 13:09:00 2024-05-21 17:49:00 Emergency X Paola VALE K [facility] ERT [id number] [facility] 2024-05-21 13:09:00 2024-05-21 17:49:00 Emergency Paola Vale [facility] 1.2840.114 350.1.13.10 4.2.7.2.686 [id number] [facility] 2024-05-21 00:00:00 2024-05-21 15:19:06 Telephone Leighann Berrios [facility] 1.2.840.114 350.1.13.10 4.2.7.2.686 [id number] [facility] 2024-05-20 00:00:00 2024-05-20 11:48:53 [facility] 1.2.840.114 350.1.13.10 4.2.7.2.686 [id number] [facility] 2024-05-20 00:00:00 2024-05-20 08:28:01 Letter (Out) LoweryTrudy - [facility] OFF[facility] 1.2.840.114 350.1.13.10 4.2.7.2.686 [id number] [facility] 2024-05-15 00:00:00 2024-05-19 11:03:37 Telephone Vamsi Josue [facility] 1.2.840.114 350.1.13.10 4.2.7.2.686 [id number] [facility] 2024-05-15 13:30:00 2024-05-15 13:30:00 Outpatient R [facility] [id number] [facility] 2024-05-15 00:00:00 2024-05-15 11:30:30 Telephone [facility] 1.2.840.114 350.1.13.10 4.2.7.2.686 [id number] [facility] 2024-05-13 00:00:00 2024-05-13 11:38:02 Telephone [facility] 1.2.840.114 350.1.13.10 4.2.7.2.686 [id number] [facility] 2024-05-12 00:00:00 2024-05-12 11:01:26 Transition of Care Nilton Cooley 1.2.840.114 350.1.13.10 4.2.7.2.686 [id number] [facility] 2024-03-23 14:31:00 2024-05-09 16:55:00 Inpatient X VARUN STEINLEIGHANN Jim [facility] [id number] [facility] 2024-04-29 11:52:00 2024-04-29 12:48:00 Anesthesia Event Bryce Weller Ch[place] 1.2.840.1 17097.1.1 3.104.2.7 .3.682983 .8 [id number] [facility] 2024-04-24 09:39:00 2024-04-24 11:53:00 Anesthesia Event Ashok Naqvi Nola 1.2.840.1 25623.1.1 3.104.2.7 .3.804989 .8 [id number] [facility] 2024-04-24 07:30:00 2024-04-24 08:30:00 Surgery Motpresleyala, Afaq 1.2.840.1 27372.1.1 3.104.2.7 .3.197261 .8 [id number] [facility] 2024-04-16 09:28:00 2024-04-16 10:28:00 Surgery Thierryala, Afaq 1.2.840.1 44196.1.1 3.104.2.7 .3.278217 .8 [id number] [facility] 2024-04-14 00:00:00 2024-04-14 12:03:16 Telephone Emma Vaz 1.2.840.1 61032.1.1 3.104.2.7 .3.774161 .8 [id number] [facility] 2024-04-07 13:07:00 2024-04-07 14:07:00 Surgery Danilo Mitchell 1.2.840.1 60435.1.1 3.104.2.7 .3.796534 .8 [id number] [facility] 2024-03-31 00:00:00 2024-03-31 00:00:00 Surgery Unassigned, Cath/Ep 1.2.840.1 51748.1.1 3.104.2.7 .3.425711 .8 [id number] [facility] 2024-03-23 00:00:00 2024-03-23 00:00:00 Travel 1.2.840.1 18071.1.1 3.104.2.7 .3.084393 .8 1.2.840.114 350.1.13.10 4.2.7.3.698 084.8 [id number] [facility] 2024-03-20 00:00:00 2024-03-21 10:13:13 Telephone Femi Disla 1.2.840.1 89464.1.1 3.104.2.7 .3.114516 .8 [id number] [facility] 2024-03-17 00:00:00 2024-03-18 17:55:06 Telephone Femi Disla 1.2.840.1 36060.1.1 3.104.2.7 .3.428350 .8 [id number] [facility] 2024-03-03 14:57:00 2024-03-03 18:55:00 Emergency X RONNELL SHELL [facility] ERT [id number] [facility] 2024-03-03 14:57:00 2024-03-03 18:55:00 Emergency Ronnell Shell 1.2.840.1 03383.1.1 3.104.2.7 .3.843789 .8 [id number] [facility] 2024-03-03 13:30:00 2024-03-03 16:19:26 Outpatient R FEMI DISLA [facility] [id number] [facility] 2024-03-03 13:30:00 2024-03-03 16:19:26 Office Visit Femi Disla 1.2.840.1 93482.1.1 3.104.2.7 .3.178721 .8 [id number] [facility] 2024-03-03 00:00:00 2024-03-03 00:00:00 Travel 1.2.840.1 97963.1.1 3.104.2.7 .3.880651 .8 1.2.840.114 350.1.13.10 4.2.7.3.698 084.8 [id number] [facility] 2023-12-20 13:00:00 2023-12-20 13:00:00 Outpatient R LEYDA CORTÉS CHOCKALINGA M [facility] [id number] [facility] 2023-10-01 14:00:00 2023-10-01 14:00:00 Outpatient R LEIGHANN BERRIOS [facility] [id number] [facility] 2023-07-23 08:00:00 2023-07-23 08:00:00 Outpatient R ANNITA GRIJALVA [place] [facility] [id number] [facility] 2023-07-20 10:30:00 2023-07-20 10:30:00 Outpatient R FEMI DISLA [facility] [id number] [facility] 2023-07-19 11:00:00 2023-07-19 11:00:00 Outpatient R FEMI DISLA [facility] [id number] [facility] 2023-07-18 10:00:00 2023-07-18 10:00:00 Outpatient R LEYDA CORTÉS CHOCKALINGA M [facility] [id number] [facility] 2023-07-17 00:00:00 2023-07-17 00:00:00 Telephone Leyda Cortés [facility] 1.2.840.114 350.1.13.10 4.2.7.2.686 [id number] [id number] [facility] 2023-07-16 14:30:00 2023-07-16 15:10:12 Outpatient R DILIP LOUIE [facility] [id number] Majo s [facility] 2023-07-16 14:30:00 2023-07-16 15:10:12 [facility] 1.840.114 350.1.13.10 4.2.7.2.686 [id number] 059 [id number] [facility] 2023-07-16 00:00:00 2023-07-16 00:00:00 Telephone Leyda Cortés [facility] 1..114 350.1.13.10 4.2.7.2.686 [id number] [facility] 2023-07-06 10:16:00 2023-07-06 17:15:00 [facility] [id number] [facility] 2023-07-06 10:16:00 2023-07-06 17:15:00 Hospital Encounter [facility] 1.284.114 350.1.13.10 4.2.7.2.686 [id number] [facility] 2023-07-06 12:35:00 2023-07-06 15:47:00 [facility] [place] 1.2840.114 350.1.13.10 4.2.7.2.686 [id number] [facility] 2023-07-06 00:00:00 2023-07-06 00:00:00 Orders Only Doctor Unassigned, [place] [facility] 1.2840.114 350.1.13.10 4.2.7.2.686 [id number] [facility] 2023-06-25 00:00:00 2023-06-25 00:00:[address] [facility] 1.2.840.114 350.1.13.10 4.2.7.2.686 [id number] [facility] 2023-06-19 11:30:00 2023-06-19 11:30:00 Outpatient R FEMI DISLA [facility] [id number] [facility] 2023-06-08 00:00:00 2023-06-08 00:00:00 [facility] 1.2.840.114 350.1.13.10 4.2.7.2.686 [id number] [facility] 2023-06-07 10:53:23 2023-06-07 23:59:00 [facility] [id number] [facility] 2023-06-06 13:15:00 2023-06-06 14:14:24 [facility] [id number] [facility] 2023-06-04 00:00:00 2023-06-04 00:00:00 Telephone Leyda Cortés [facility] 1.2.840.114 350.1.13.10 4.2.7.2.686 [id number] [facility] 2023-06-01 10:15:00 2023-06-01 11:00:00 Office Visit AgrawalMargot jefferson [facility] 1.2.840.114 350.1.13.10 4.2.7.2.686 [id number] [facility] 2023-06-01 10:15:00 2023-06-01 10:15:00 [facility] [id number] [facility] 2023-06-01 00:00:00 2023-06-01 00:00:00 Orders Only Doctor Unassigned, [place] [facility] 1.2840.114 350.1.13.10 4.2.7.2.686 [id number] [facility] 2023-05-24 00:00:00 2023-05-24 00:00:00 Telephone Jen Daishaesperanza [facility] 1.2840.114 350.1.13.10 4.2.7.2.686 [id number] [facility] 2023-05-21 12:25:47 2023-05-21 23:59:00 Hospital Encounter Femi Disla [facility] 1.2840.114 350.1.13.10 4.2.7.2.686 [id number] [facility] 2023-05-21 14:20:00 2023-05-21 15:36:30 [facility] [id number] [facility] 2023-05-21 14:20:00 2023-05-21 15:36:30 [facility] 1.2840.114 350.1.13.10 4.2.7.2.686 [id number] 059 [id number] [facility] 2023-05-14 00:00:00 2023-05-14 00:00:00 Telephone Femi Disla [facility] PJD[facility] 1.2840.114 350.1.13.10 4.2.7.2.686 [id number] [facility] 2023-05-10 08:30:00 2023-05-10 09:10:39 Outpatient R FEMI DISLA [facility] [id number] [facility] 2023-05-10 08:30:00 2023-05-10 09:10:39 [facility] 1.2.840.114 350.1.13.10 4.2.7.2.686 [id number] [facility] 2023-05-10 00:00:00 2023-05-10 00:00:00 Orders Only Doctor Unassigned, [place] [facility] 1.2.840.114 350.1.13.10 4.2.7.2.686 [id number] [facility] 2023-05-03 00:00:00 2023-05-03 00:00:00 Telephone [facility]ot [facility] 1.2.840.114 350.1.13.10 4.2.7.2.686 [id number] [facility] 2023-05-03 00:00:00 2023-05-03 00:00:00 Telephone [facility] 1.2.840.114 350.1.13.10 4.2.7.2.686 [id number] 044 [id number] [facility] 2023-04-25 13:30:00 2023-04-25 13:30:00 Outpatient LEYDA BALDWIN CHOCKALINGA M [facility] [id number] [facility] 2023-04-25 00:00:00 2023-04-25 00:00:00 Telephone Daisha Li PLALYNDA 1.2.840.114 350.1.13.10 4.2.7.2.686 [id number] [facility] 2023-04-18 13:00:00 2023-04-18 13:46:45 Outpatient LEYDA BALDWIN CHOCKALINGA M [facility] [id number] [facility] 2023-04-18 13:00:00 2023-04-18 13:46:45 Office Visit Leyda Cortés [facility] 1..114 350.1.13.10 4.2.7.2.686 [id number] [facility] 2023-04-12 10:15:00 2023-04-12 10:30:00 Mirror Machine Feeder Visit Lab, [facility] BUILD[facility] 1.114 350.1.13.10 4.2.7.2.686 [id number] [facility] 2023-04-12 08:30:00 2023-04-12 09:53:58 Outpatient Josee ALVAREZJORGITO [facility] [id number] [facility] 2023-04-12 08:30:00 2023-04-12 09:53:58 Office Visit [facility] MED[facility] OFF[facility] BUILD[facility] 1.114 350.1.13.10 4.2.7.2.686 [id number] 044 [id number] [facility] 2023-04-12 00:00:00 2023-04-12 00:00:00 Orders Only Doctor Unassigned, [place] [facility] 1..114 350.1.13.10 4.2.7.2.686 [id number] [facility] 2023-04-05 09:30:00 2023-04-05 09:30:00 Outpatient R NAIF [facility] [id number] [facility] 2023-03-22 00:00:00 2023-03-22 00:00:00 Orders Only Doctor Unassigned, [place] [facility] 1.0.114 350.1.13.10 4.2.7.2.686 [id number] [facility] 2023-02-16 11:00:00 2023-02-16 11:00:00 Outpatient R FEMI DISLA [facility] [id number] [facility] 2023-02-05 00:00:00 2023-02-05 00:00:00 Orders Only Doctor Unassigned, [place] [facility] 1.2.840.114 350.1.13.10 4.2.7.2.686 [id number] [facility] 2023-02-02 00:00:00 2023-02-02 00:00:00 Telephone Leyda Cortés [facility] 1.2.840.114 350.1.13.10 4.2.7.2.686 [id number] [facility] 2023-01-25 00:00:00 2023-01-25 00:00:00 Transition of Care Shari Castro 1.2.840.114 350.1.13.10 4.2.7.2.686 [id number] [facility] 2023-01-19 10:31:00 2023-01-24 15:38:00 Inpatient R [facility] [id number] [facility] 2023-01-19 10:31:00 2023-01-24 15:38:00 Hospital Encounter Adeline [facility]ri [facility] 1.2.840.114 350.1.13.10 4.2.7.2.686 [id number] [facility] 2023-01-24 00:00:00 2023-01-24 00:00:00 Telephone Daisha Li 1.2.840.114 350.1.13.10 4.2.7.2.686 [id number] [facility] 2023-01-22 07:40:00 2023-01-22 10:40:00 [facility] 1.2840.114 350.1.13.10 4.2.7.2.686 [id number] [facility] 2023-01-19 00:00:00 2023-01-19 00:00:00 Outpatient R PIA AVENDANO [facility] [id number] [facility] 2023-01-16 15:00:00 2023-01-16 16:22:22 [facility] [id number] [facility] 2023-01-16 15:00:00 2023-01-16 16:22:22 Office Visit Negin Gill [facility] 1.2.840.114 350.1.13.10 4.2.7.2.686 [id number] [facility] 2023-01-16 00:00:00 2023-01-16 00:00:00 Telephone Annabelle Alba 1.2.840.114 350.1.13.10 4.2.7.2.686 [id number] [facility] 2023-01-11 00:00:00 2023-01-11 00:00:00 Telephone Heather [facility] MEDICAL OFFICE BUILDING 1.2.840.114 350.1.13.10 4.2.7.2.686 [id number] [facility] 2023-01-09 14:15:00 2023-01-09 14:30:00 Office Visit Heather [facility] MEDICAL OFFICE BUILDING 1.2.840.114 350.1.13.10 4.2.7.2.686 [id number] [facility] 2023-01-09 14:15:00 2023-01-09 14:15:00 Outpatient R PIA AVENDANO [facility] [id number] Majo llanos [facility] 2023-01-05 11:11:00 2023-01-05 15:56:00 Emergency X RUDDY SAYRA [facility] ERT [id number] [facility] 2023-01-05 11:11:00 2023-01-05 15:56:00 Emergency Sayra Fox [facility] 1.2840.114 350.1.13.10 4.2.7.2.686 [id number] [facility] 2022-12-29 00:00:00 2022-12-29 00:00:00 Orders Only Doctor Unassigned, [place] [facility] 1.2840.114 350.1.13.10 4.2.7.2.686 [id number] [facility] 2022-12-21 10:30:00 2022-12-21 12:45:25 Office Visit Naif Femi [facility] 1.2840.114 350.1.13.10 4.2.7.2.686 [id number] [facility] 2022-12-21 10:30:00 2022-12-21 12:45:25 Outpatient R FEMI DISLA [facility] [id number] [facility] 2022-12-21 00:00:00 2022-12-21 00:00:00 Orders Only Doctor Unassigned, [place] [facility] 1.2840.114 350.1.13.10 4.2.7.2.686 [id number] [facility] 2022-12-06 11:44:19 2022-12-06 11:44:19 Outpatient [facility] [id number] [place] Results Test Description Test Time Test Comments Results Result Co mments Source [facility] with [id number] 16:00:54* Test Item Value Reference Range Interpretation Comme nts WBC (test code = 6690-2) 9.82 4.20-10.70 RBC (test code = 789-8) 3.50 4.26-5.52 L HGB (test code = 718-7) 8.3 g/dL 12.2-16.4 L HCT (test code = 4544-3) 27.8 % 38.4-49.3 L MCV (test code = 787-2) 79.4 fL 81.7-95.6 L MCH (test code = 785-6) 23.7 pg 26.1-32.7 L MCHC (test code = 786-4) 29.9 g/dL 31.2-35.0 L RDW-SD (test code = 45403-2) 62.4 fL 38.5-51.6 H RDW-CV (test code = 788-0) 23.5 % 12.1-15.4 H PLT (test code = 777-3) 525 150-328 H MPV (test code = 86482-4) 9.0 fL 9.8-13.0 L NRBC/100 WBC (test code = 2314522134) 0.0 0.0-10.0 NRBC x10^3 (test code = 8601037107) See_Comment [Automated messa ge] The system which generated this result transmitted reference range: 10*3/?L. The reference range was not used to interpret this result as normal/abnormal. GRAN MAT (NEUT) % (test code = 770-8) 74.2 % IMM GRAN % (test code = 0989176602) 1.80 % LYMPH % (test code = 736-9) 14.9 % MONO % (test code = 5905-5) 8.4 % EOS % (test code = 713-8) 0.3 % BASO % (test code = 706-2) 0.4 % GRAN MAT x10^3(ANC) (test code = 1520539487) 7.29 10*3/uL 1.99-6.95 H IMM GRAN x10^3 (test code = 3982773209) 0.18 10*3/uL 0.00-0.06 H LYMPH x10^3 (test code = 731-0) 1.46 10*3/uL 1.09-3.23 MONO x10^3 (test code = 742-7) 0.82 10*3/uL 0.36-1.02 EOS x10^3 (test code = 711-2) 0.03 10*3/uL 0.06-0.53 L BASO x10^3 (test code = 704-7) 0.04 10*3/uL 0.01-0.09 Lab Interpretation (test code = 21700-4) [facility]normal [facility] [id number] 15:52:23* Test Item Value Reference Range Interpretation Comme [facility] LACTIC ACID (test code = 9745900073) 2.65 mmol/L 0.50-2.20 H Lab Interpretation (test cod e = 37709-7) Abnormal [facility]2024-04-30 14:26:26* Test Item Value Reference Range Interpretation Comme [facility] POCT GLU (test code = 4208344678) 184 mg/dL 70-110 H Lab Interpretation (test cod e = 15618-3) [facility]normal [facility] 1 [id number] 12:55:51EXAM: XR CHEST 1 VW HISTORY: 58 years-old Male; Provided indication: pulmonary edema . TECHNIQUE: Single frontal view of the chest. COMPARISON: None FINDINGS: There is mild pulmonary vascular congestion. There is enlargement of thecardiac silhouette. There is no evidence of pneumothorax or largeconsolidations. The also similar structures otherwise un[facility]able[facility] Renin [id number] 12:13:53* Test Item Value Reference Range Interpretation Comme nts RENIN (test code = 2915-7) 15.0 ng/mL/hr INTERPRETIVE INF ORMATION: Renin Activity Adult, Normal sodium diet: ?Supine ................. 0.2-1.6 ng/mL/hr ?Upright ................ 0.5-4.0 ng/mL/hr Children, Normal sodium diet, Supine: ? (1-7 days) ..... 2.0-35.0 ng/mL/hr ?Cord blood ............. 4.0-32.0 ng/mL/hr ?1-12 mos ............... 2.4-37.0 ng/mL/hr ?13 mos-3 yrs ........... 1.7-11.2 ng/mL/hr ?4-5 yrs ................ 1.0- 6.5 ng/mL/hr ?6-10 yrs ............... 0.5- 5.9 ng/mL/hr ?11-15 yrs .............. 0.5- 3.3 ng/mL/hr Children, normal sodium diet, Upright: ?0-3 yrs ................ Not Available ?4-5 yrs ................ Less than or equal to 15 ng/mL/hr ?6-10 yrs ............... Less than or equal to 17 ng/mL/hr ?11-15 yrs .............. Less than or equal to 16 ng/mL/hr Plasma renin activity measures enzyme ability to convert angiotensinogen to angiotensin I and is limited by the availability of angiotensinogen. Plasma renin activity is not an accurate indicator of enzyme activity when angiotensinogen is decreased. This test was developed and its performance characteristics determined by [facility]. It has not been cleared or approved by the [place] Food and Drug Administration. This test was performed in a CLIA certified laboratory and is intended for clinical purposes.Performed By: [facility] [place] [address] [id number] Director: Lul Estrada MD, PhDCLIA Number: [id number] [facility] Metabolic Panel (NA, K, CL, CO2, GLUCOSE, BUN, CREATININE, CA)2024-04-30 11:27:19* Test Item Value Reference Range Interpretation Comme nts NA (test code = 8743775173) 133 mmol/L 135-145 L K (test code = 0183608921) 6.0 mmol/L 3.5-5.0 H CL (test code = 4182144798) 87 mmol/L 98-108 L CO2 TOTAL (test code = 6107710536) 37 mmol/L 23-31 H AGAP (test code = 4185133995) 9 2-16 BUN (test code = 7197012923) 38 mg/dL 7-23 H GLUCOSE (test code = 5370732412) 125 mg/dL 70-110 H CREATININE (test code = 2160-0) 2.00 mg/dL 0.60-1.25 H CALCIUM (test code = 2955954319) 8.9 mg/dL 8.6-10.6 eGFR (test code = 25726-0) 38.2 mL/min/1.73m2 CKD-EPI eGFR (2020). Assuming creatinine has been stable day-to-day for at least three months, the eGFR indicates Category G3b (30 - 44 mL/min/1.73 m2) Lab Interpretation (test code = 24065-9) [facility]normal [facility] 11:21:50* Test Item Value Reference Range Interpretation Comme nts MAGNESIUM (test code = 7332075252) 2.2 mg/dL 1.7-2.4 Lab Interpretation (test cod e = 91667-6) Normal [facility] Hospital[facility] Function [facility] (09214) (ALB,T.PRO,BILI T,BU/BC,ALT,AST,ALK PHOS)2024-04-30 11:21:50* Test Item Value Reference Range Interpretation Comme nts TOTAL BILI (test code = 9304927419) 1.4 mg/dL 0.1-1.1 H BILI UNCON (test code = 2228174299) 0.6 mg/dL 0.1-1.1 BILI CONJ (test code = 8974598744) 0.0 mg/dL 0.0-0.3 T PROTEIN (test code = 4489183866) 7.1 g/dL 6.3-8.2 ALBUMIN (test code = 3838750937) 3.4 g/dL 3.5-5.0 L ALK PHOS (test code = 6130936846) 335 U/L 34-122 H ALTv (test code = 1742-6) 54 U/L 5-50 H AST(SGOT) (test code = 4317754214) 86 U/L 13-40 H Lab Interpretation (test cod e = 26541-9) Abnormal [facility] HospitalAldosterone, [id number] 03:10:39* Test Item Value Reference Range Interpretation Comme nts ALDOST (test code = 1763-2) 30.1 ng/dL INTERPRETIVE INFORMATION: Aldosterone, Serum Reference intervals for age 15 and older: Upright ......... ?4.0 - 31.0 ng/dL Supine .......... ?Less than or equal to 16.0 ng/dL Unspecified ..... ?Less than or equal to 31.0 ng/dL Normal serum levels of aldosterone are dependent on the sodium intake and whether the patient is upright or supine. High sodium intake will tend to suppress serum aldosterone, whereas low sodium intake will elevate serum aldosterone. The reference intervals for serum aldosterone are based on normal sodium intake. Access complete set of age- and/or gender-specific reference intervals for this test in the [employer] [facility] Test Directory ([employer]).Performed By: [facility] [place] [address] [id number] Director: Lul Estrada MD, PhDCLIA Number: [id number] [facility] Venous Blood [id number] 15:51:31 * Test Item Value Reference Range Interpretation Comme nts PH (test code = 1109449738) 7.50 7.32-7.42 H PCO2 JEANNETTE (test code = 6901383258) 53 41-51 H PO2 JEANNETTE (test code = 3197011113) 24 25-40 L HCO3 JEANNETTE (test code = 6141784898) 40 24-28 H AC VBE(BEAKER) (test code = 5033519659) 14.8 mEq/L Lab Interpretation (test cod e = 16486-0) [facility]normal [facility] HospitalN-Terminal Qll-Eom5080-93-03 15:21:40* Test Item Value Reference Range Interpretation Comme nts NT-proBNP (test code = 36251-1) 5720 pg/mL <=125 H ALCIDES (test code = ALCIDES) Positive: Heart Failure Likely Lab Interpretation (test code = 78944-5) [facility]normal [facility] HospitalaPTT2024-05-30 21:25:18* Test Item Value Reference Range Interpretation Comme [facility] APTT Patient (test code = 3173-2) 37 26-36 H Lab Interpretation (test cod e = 43000-2) [facility]normal [facility] HospitalPOCT ACT Low Vfoxn6325-64-46 17:02:54* Test Item Value Reference Range Interpretation Comme [facility] ACTLR (test code = 0934292112) 236 89-169 H Lab Interpretation (test cod e = 72865-2) Abnormal [facility] Venous Coox Oodiv5588-92-67 13:51:58* Test Item Value Reference Range Interpretation Comme [facility] THB JEANNETTE (test code = 4204780579) 9.7 g/dL 13.5-18.0 L %O2HB JEANNETTE (test code = 2836556918) 52.6 % 52.0-63.0 %COHB JEANNETTE (test code = 9113924038) 1.2 % 0.0-1.5 %METHB JEANNETTE (test code = 5664000480) 0.3 % 0.4-1.5 L VOL%O2 JEANNETTE (test code = 7482770012) 7.2 % 6.0-12.0 Lab Interpretation (test cod e = 99766-6) Abnormal [facility] Cooximeter Jtkzw8805-31-02 09:46:17 * Test Item Value Reference Range Interpretation Comme [facility] THB (test code = 2590299169) 9.7 g/dL 13.5-18.0 L %O2HB (test code = 9887784329) 56.5 % 94.0-99.0 L %COHB ART (test code = 3507748953) 1.4 % 0.0-1.5 %METHB ART (test code = 0898637894) 0.3 % 0.4-1.5 L VOL%O2 ART (test code = 0792511861) 7.7 % 15.0-23.0 L QUES Lab Interpretation (test cod e = 37631-2) [facility]normal [facility] Met[facility] Panel (NA, K, CL, CO2, GLUCOSE, BUN, CREATININE, CA)2024-04-17 20:57:30* Test Item Value Reference Range Interpretation Comme nts NA (test code = 7611289119) 136 mmol/L 135-145 K (test code = 0232267197) 3.0 mmol/L 3.5-5.0 L CL (test code = 3378291938) 90 mmol/L 98-108 L CO2 TOTAL (test code = 2412295023) 36 mmol/L 23-31 H AGAP (test code = 1077519219) 10 2-16 BUN (test code = 4335450717) 44 mg/dL 7-23 H GLUCOSE (test code = 1769219384) 70 mg/dL 70-110 CREATININE (test code = 2160-0) 1.30 mg/dL 0.60-1.25 H CALCIUM (test code = 5827687393) 8.5 mg/dL 8.6-10.6 L eGFR (test code = 51239-6) 64.1 mL/min/1.73m2 CKD-EPI eGFR (2020). Assuming creatinine has been stable day-to-day for at least three months, the eGFR indicates Category G2 (60 - 89 mL/min/1.73 m2) Lab Interpretation (test code = 84488-5) Abnormal [facility] GLUCOSE (AUTOMATED)2024-04-17 20:55:04* Test Item Value Reference Range Interpretation Comme nts POCT GLU (test code = 8462701012) 144 mg/dL 70-110 H Lab Interpretation (test cod e = 98246-0) Abnormal [facility] GLUCOSE (AUTOMATED)2024-04-17 16:32:35* Test Item Value Reference Range Interpretation Comme nts POCT GLU (test code = 7617926187) 160 mg/dL 70-110 H Notified Provide r Lab Interpretation (test code = 31997-8) Abnormal [facility] GLUCOSE (AUTOMATED)2024-04-17 12:56:11* Test Item Value Reference Range Interpretation Comme nts POCT GLU (test code = 4535259729) 153 mg/dL 70-110 H Lab Interpretation (test cod e = 39949-0) Abnormal [facility] HospitalLacaic Acid Whole Tbhsn0180-78-35 02:01:46* Test Item Value Reference Range Interpretation Comme nts LACTIC ACID (test code = 1811197454) 1.80 mmol/L 0.50-2.20 QUES Lab Interpretation (test cod e = 35131-7) Normal [facility] HospitalPONM GLUCOSE (AUTOMATED)2024-04-17 01:44:00* Test Item Value Reference Range Interpretation Comme [facility] POCT GLU (test code = 7829232339) 184 mg/dL 70-110 H Lab Interpretation (test cod e = 79577-3) [facility]normal [facility] HospitalMagnesium2024-05-23 00:17:38* Test Item Value Reference Range Interpretation Comme [facility] MAGNESIUM (test code = 2520191411) 1.8 mg/dL 1.7-2.4 Lab Interpretation (test cod e = 41416-4) Normal [facility] (NA, K, CL, CO2, GLUCOSE, BUN, CREATININE, CA)2024-04-16 22:54:27* Test Item Value Reference Range Interpretation Comme [facility] NA (test code = 3108217217) 135 mmol/L 135-145 K (test code = 2925606637) 3.0 mmol/L 3.5-5.0 L CL (test code = 2436703442) 97 mmol/L 98-108 L CO2 TOTAL (test code = 1355762412) 32 mmol/L 23-31 H AGAP (test code = 2382062540) 6 2-16 BUN (test code = 6176950082) 41 mg/dL 7-23 H GLUCOSE (test code = 1867031915) 154 mg/dL 70-110 H CREATININE (test code = 2160-0) 1.04 mg/dL 0.60-1.25 CALCIUM (test code = 8489621599) 7.1 mg/dL 8.6-10.6 L eGFR (test code = 08537-8) 83.7 mL/min/1.73m2 CKD-EPI eGFR (2020). Assuming creatinine has been stable day-to-day for at least three months, the eGFR indicates Category G2 (60 - 89 mL/min/1.73 m2) Lab Interpretation (test code = 63238-6) [facility]normal [facility]2024-05-22 21:37:37* Test Item Value Reference Range Interpretation Comme [facility] APTT Patient (test code = 3173-2) 35 26-36 Lab Interpretation (test cod e = 80520-3) Normal [facility] GLUCOSE (AUTOMATED)2024-04-16 20:53:49* Test Item Value Reference Range Interpretation Comme nts POCT GLU (test code = 0399838174) 186 mg/dL 70-110 H Lab Interpretation (test cod e = 88909-5) [facility]normal [facility]aP[facility]2024-05-22 19:34:41* Test Item Value Reference Range Interpretation Comme nts APTT Patient (test code = 3173-2) 47 26-36 H Lab Interpretation (test cod e = 84193-0) Abnormal [facility] GLUCOSE (AUTOMATED)2024-04-16 17:18:48* Test Item Value Reference Range Interpretation Comme nts POCT GLU (test code = 7543085287) 141 mg/dL 70-110 H Lab Interpretation (test cod e = 35048-8) Abnormal [facility] ACT Low Xpvkf3448-57-93 16:35:52* Test Item Value Reference Range Interpretation Comme nts ACTLR (test code = 2304491680) 248 89-169 H Lab Interpretation (test cod e = 19706-2) Abnormal [facility] ACT Low Horjg7637-68-55 16:02:09* Test Item Value Reference Range Interpretation Comme nts ACTLR (test code = 0556599459) 243 89-169 H Lab Interpretation (test cod e = 06522-0) Abnormal [facility] GLUCOSE (AUTOMATED)2024-04-16 14:04:26* Test Item Value Reference Range Interpretation Comme nts POCT GLU (test code = 7578567799) 161 mg/dL 70-110 H Lab Interpretation (test cod e = 81488-2) [facility]normal [facility] HospitalLacaic Acid Whole Xzitp4847-90-53 12:40:04* Test Item Value Reference Range Interpretation Comme nts LACTIC ACID (test code = 1623651111) 1.40 mmol/L 0.50-2.20 Lab Interpretation (test cod e = 30462-7) Normal [facility]Type and Screen - ONCE Gxlfucw3071-24-38 10:49:00* Test Item Value Reference Range Interpretation Comme nts ABO & RH (test code = 20) O POSITIVE IAT (test code = 1185) Negative [facility] HospitalType and Screen - ONCE Tcltzux9835-70-95 10:49:00* Test Item Value Reference Range Interpretation Comme nts ABO & RH (test code = 20) O POSITIVE IAT (test code = 1185) Negative [facility] HospitalBasi Metabolic Panel (NA, K, CL, CO2, GLUCOSE, BUN, CREATININE, CA)2024-04-16 03:47:31* Test Item Value Reference Range Interpretation Comme nts NA (test code = 0026041715) 134 mmol/L 135-145 L K (test code = 0704777497) 4.4 mmol/L 3.5-5.0 CL (test code = 0970620265) 90 mmol/L 98-108 L CO2 TOTAL (test code = 0096118403) 38 mmol/L 23-31 H AGAP (test code = 1177676555) 6 2-16 BUN (test code = 6844185444) 47 mg/dL 7-23 H GLUCOSE (test code = 1296138386) 137 mg/dL 70-110 H CREATININE (test code = 2160-0) 1.31 mg/dL 0.60-1.25 H CALCIUM (test code = 4163898765) 8.3 mg/dL 8.6-10.6 L eGFR (test code = 93646-8) 63.5 mL/min/1.73m2 CKD-EPI eGFR (2020). Assuming creatinine has been stable day-to-day for at least three months, the eGFR indicates Category G2 (60 - 89 mL/min/1.73 m2) Lab Interpretation (test code = 27930-0) [facility]normal [facility] HospitalMagnesium2024-05-22 03:40:32* Test Item Value Reference Range Interpretation Comme nts MAGNESIUM (test code = 2957545898) 1.8 mg/dL 1.7-2.4 Lab Interpretation (test cod e = 70269-4) Normal [facility] GLUCOSE (AUTOMATED)2024-04-16 01:53:32* Test Item Value Reference Range Interpretation Comme nts POCT GLU (test code = 7971676566) 144 mg/dL 70-110 H Lab Interpretation (test cod e = 22338-2) Abnormal [facility] GLUCOSE (AUTOMATED)2024-04-15 22:39:34* Test Item Value Reference Range Interpretation Comme nts POCT GLU (test code = 6843446319) 228 mg/dL 70-110 H Lab Interpretation (test cod e = 14428-6) Abnormal [facility] GLUCOSE (AUTOMATED)2024-04-15 20:22:03* Test Item Value Reference Range Interpretation Comme nts POCT GLU (test code = 4206399212) 161 mg/dL 70-110 H Lab Interpretation (test cod e = 66577-5) Abnormal [facility] GLUCOSE (AUTOMATED)2024-04-15 17:27:10* Test Item Value Reference Range Interpretation Comme nts POCT GLU (test code = 4914691521) 197 mg/dL 70-110 H Lab Interpretation (test cod e = 06897-6) Abnormal [facility] HospitalLacaic Acid Whole Dnquu1619-96-19 16:01:13* Test Item Value Reference Range Interpretation Comme nts LACTIC ACID (test code = 1915792565) 1.71 mmol/L 0.50-2.20 Lab Interpretation (test cod e = 14166-8) Normal [facility] HospitalXR CHEST 1 [id number] 14:37:52EXAM: XR CHEST 1 VW COMPARISON: 04/11/2024 HISTORY: [facility]24-04-15 13:33:00* Test Item Value Reference Range Interpretation Comme nts POCT GLU (test code = 3812257994) 164 mg/dL 70-110 H Lab Interpretation (test cod e = 18454-7) Abnormal [facility] GLUCOSE (AUTOMATED)2024-04-15 02:28:09* Test Item Value Reference Range Interpretation Comme nts POCT GLU (test code = 5428989329) 119 mg/dL 70-110 H Lab Interpretation (test cod e = 15020-6) Abnormal [facility] GLUCOSE (AUTOMATED)2024-04-14 21:34:18* Test Item Value Reference Range Interpretation Comme nts POCT GLU (test code = 1828281095) 163 mg/dL 70-110 H Lab Interpretation (test cod e = 07789-5) [facility]normal [facility] HospitalDIFF CONSULT [id number] 21:20:30 ABSOLUTE NEUTROPHILIA AND LYMPHOCYTOPENIA. MICROCYTIC HYPOCHROMIC ANEMIA. COULD BE CONSISTENT WITH IRON DEFICIENCY ANEMIA. PLATELETS ARE UNREMARKABLE.[facility] HospitalDIFF CONSULT ALRGMCIZPTNIWK6138-76-41 21:20:30ABSOLUTE NEUTROPHILIA AND LYMPHOCYTOPENIA. MICROCYTIC HYPOCHROMIC ANEMIA. COULD BE CONSISTENT WITH IRON DEFICIENCY ANEMIA. PLATELETS ARE UNREMARKABLE.[facility] GLUCOSE (AUTOMATED)2024-04-14 16:59:09* Test Item Value Reference Range Interpretation Comme nts POCT GLU (test code = 3557451810) 208 mg/dL 70-110 H Lab Interpretation (test cod e = 55075-9) Abnormal [facility] GLUCOSE (AUTOMATED)2024-04-14 12:47:34* Test Item Value Reference Range Interpretation Comme nts POCT GLU (test code = 6261641746) 193 mg/dL 70-110 H Lab Interpretation (test cod e = 47922-0) Abnormal [facility] GLUCOSE (AUTOMATED)2024-04-14 02:23:09* Test Item Value Reference Range Interpretation Comme nts POCT GLU (test code = 6091617625) 162 mg/dL 70-110 H Lab Interpretation (test cod e = 60665-0) Abnormal [facility] GLUCOSE (AUTOMATED)2024-04-13 20:11:13* Test Item Value Reference Range Interpretation Comme nts POCT GLU (test code = 0461246226) 165 mg/dL 70-110 H Notified Provide r Lab Interpretation (test code = 53400-4) Abnormal [facility] GLUCOSE (AUTOMATED)2024-04-13 16:09:13* Test Item Value Reference Range Interpretation Comme nts POCT GLU (test code = 5437964747) 221 mg/dL 70-110 H Notified Provide r Lab Interpretation (test code = 95420-8) Abnormal [facility] GLUCOSE (AUTOMATED)2024-04-13 12:16:41* Test Item Value Reference Range Interpretation Comme nts POCT GLU (test code = 6463430956) 225 mg/dL 70-110 H Notified Provide r Lab Interpretation (test code = 55652-8) Abnormal [facility] GLUCOSE (AUTOMATED)2024-04-13 02:39:30* Test Item Value Reference Range Interpretation Comme nts POCT GLU (test code = 3401373020) 256 mg/dL 70-110 H Lab Interpretation (test cod e = 69602-1) Abnormal [facility] GLUCOSE (AUTOMATED)2024-04-12 21:05:35* Test Item Value Reference Range Interpretation Comme nts POCT GLU (test code = 8245184658) 206 mg/dL 70-110 H Lab Interpretation (test cod e = 23065-6) [facility]normal [facility] HospitalN-Terminal Nca-Qsm3268-81-18 19:01:23* Test Item Value Reference Range Interpretation Comme nts NT-proBNP (test code = 24364-9) 31727 pg/mL <=125 H ALCIDES (test code = ALCIDES) Positive: Heart Failure Likely Lab Interpretation (test code = 45834-7) Abnormal [facility] GLUCOSE (AUTOMATED)2024-04-12 16:29:38* Test Item Value Reference Range Interpretation Comme nts POCT GLU (test code = 4891615134) 257 mg/dL 70-110 H Lab Interpretation (test cod e = 58091-8) Abnormal [facility] GLUCOSE (AUTOMATED)2024-04-12 13:40:45* Test Item Value Reference Range Interpretation Comme nts POCT GLU (test code = 2008636378) 207 mg/dL 70-110 H Lab Interpretation (test cod e = 67039-5) [facility]normal [facility] HospitalCb with Xhkd3687-56-90 09:46:11* Test Item Value Reference Range Interpretation Comme nts WBC (test code = 6690-2) 9.30 4.20-10.70 RBC (test code = 789-8) 3.79 4.26-5.52 L HGB (test code = 718-7) 8.8 g/dL 12.2-16.4 L HCT (test code = 4544-3) 28.5 % 38.4-49.3 L MCV (test code = 787-2) 75.2 fL 81.7-95.6 L MCH (test code = 785-6) 23.2 pg 26.1-32.7 L MCHC (test code = 786-4) 30.9 g/dL 31.2-35.0 L RDW-SD (test code = 24886-3) 54.1 fL 38.5-51.6 H RDW-CV (test code = 788-0) 20.3 % 12.1-15.4 H PLT (test code = 777-3) 282 150-328 MPV (test code = 64197-1) 10.0 fL 9.8-13.0 NRBC/100 WBC (test code = 7964096694) 0.0 0.0-10.0 NRBC x10^3 (test code = 9825102107) See_Comment [Automated messa ge] The system which generated this result transmitted reference range: 10*3/?L. The reference range was not used to interpret this result as normal/abnormal. GRAN MAT (NEUT) % (test code = 770-8) 80.9 % IMM GRAN % (test code = 8158601354) 1.10 % LYMPH % (test code = 736-9) 7.7 % MONO % (test code = 5905-5) 8.8 % EOS % (test code = 713-8) 1.3 % BASO % (test code = 706-2) 0.2 % GRAN MAT x10^3(ANC) (test code = 1060091438) 7.52 10*3/uL 1.99-6.95 H IMM GRAN x10^3 (test code = 3725037644) 0.10 10*3/uL 0.00-0.06 H LYMPH x10^3 (test code = 731-0) 0.72 10*3/uL 1.09-3.23 L MONO x10^3 (test code = 742-7) 0.82 10*3/uL 0.36-1.02 EOS x10^3 (test code = 711-2) 0.12 10*3/uL 0.06-0.53 BASO x10^3 (test code = 704-7) 0.01-0.09 Lab Interpretation (test code = 10632-3) Abnormal [facility] HospitalHep[facility] Function Panel (49444) (ALB,T.PRO,BILI T,BU/BC,ALT,AST,ALK PHOS)2024-04-12 06:35:58* Test Item Value Reference Range Interpretation Comme nts TOTAL BILI (test code = 0081302502) 1.3 mg/dL 0.1-1.1 H BILI UNCON (test code = 6616480630) 0.4 mg/dL 0.1-1.1 BILI CONJ (test code = 9236735418) 0.0 mg/dL 0.0-0.3 T PROTEIN (test code = 1445488386) 7.2 g/dL 6.3-8.2 ALBUMIN (test code = 7366307615) 3.5 g/dL 3.5-5.0 ALK PHOS (test code = 4651525058) 198 U/L 34-122 H ALTv (test code = 1742-6) 14 U/L 5-50 AST(SGOT) (test code = 3086228882) 51 U/L 13-40 H Lab Interpretation (test cod e = 85025-6) Abnormal [facility] Metabolic Panel (NA, K, CL, CO2, GLUCOSE, BUN, CREATININE, CA)2024-04-12 06:35:58* Test Item Value Reference Range Interpretation Comme nts NA (test code = 5283900498) 132 mmol/L 135-145 L K (test code = 3503649129) 3.1 mmol/L 3.5-5.0 L CL (test code = 6339053167) 88 mmol/L 98-108 L CO2 TOTAL (test code = 9230096622) 31 mmol/L 23-31 AGAP (test code = 3533055938) 13 2-16 BUN (test code = 2042610067) 55 mg/dL 7-23 H GLUCOSE (test code = 3734524129) 178 mg/dL 70-110 H CREATININE (test code = 2160-0) 2.62 mg/dL 0.60-1.25 H CALCIUM (test code = 9659192469) 7.5 mg/dL 8.6-10.6 L eGFR (test code = 92354-6) 27.6 mL/min/1.73m2 CKD-EPI eGFR (2020). Assuming creatinine has been stable day-to-day for at least three months, the eGFR indicates Category G4 (15 - 29 mL/min/1.73 m2) Lab Interpretation (test code = 49741-9) [facility] 06:35:58* Test Item Value Reference Range Interpretation Comme nts MAGNESIUM (test code = 3706216197) 1.9 mg/dL 1.7-2.4 Lab Interpretation (test cod e = 05167-5) Normal [facility] Antib[facility] (IGM & IGG)2024-04-12 02:17:21* Test Item Value Reference Range Interpretation Comme nts HBC (test code = 1024261917) Reactive HBC Semi-Quantitative (test code = 3401823015) 0.[address] [facility] Antibody (IGM & IGG)2024-04-12 02:17:21* Test Item Value Reference Range Interpretation Comme nts HBC (test code = 9539319874) Reactive HBC Semi-Quantitative (test code = 1181795842) 0.34 [facility] B Surface Tnymohwx4860-02-57 01:36:43* Test Item Value Reference Range Interpretation Comme nts HBsAB (test code = 4919807078) Positive HBsAb Semi-Quantitative (test code = 8451622987) 155.00 mIU/mL ALCIDES (test code = ALCIDES) Interpretation: ?Hepatitis B Surface Antibody ? Negative - Patient is considered to be not immune to infection with HBV. ? ? Positive - Anti-HBs detected at greater than or equal to 12 mIU/mL. ?Patient is considered to be immune to infection with HBV. ? [facility] B Surface Tauwabza7752-96-99 01:36:43* Test Item Value Reference Range Interpretation Comme nts HBsAB (test code = 5971937467) Positive HBsAb Semi-Quantitative (test code = 6068626837) 155.00 mIU/mL ALCIDES (test code = ALCIDES) Interpretation: ?Hepatitis B Surface Antibody ? Negative - Patient is considered to be not immune to infection with HBV. ? ? Positive - Anti-HBs detected at greater than or equal to 12 mIU/mL. ?Patient is considered to be immune to infection with HBV. ? [facility] B Surface Qukmjlw6984-70-14 01:18:40 * Test Item Value Reference Range Interpretation Comme [facility] HBsAg Semi-Quantitative (marie t code = 5195-3) 0.[address] [facility] B Surface [id number] 01:18:40 * Test Item Value Reference Range Interpretation Comme nts HBsAg Semi-Quantitative (marie t code = 5195-3) 0.09 Negative [facility] GLUCOSE (AUTOMATED)2024-04-12 01:07:33* Test Item Value Reference Range Interpretation Comme nts POCT GLU (test code = 7115835389) 205 mg/dL 70-110 H Notified Provide r Lab Interpretation (test code = 75227-3) Abnormal [facility] Metabolic Panel (NA, K, CL, CO2, GLUCOSE, BUN, CREATININE, CA)2024-04-11 22:34:48* Test Item Value Reference Range Interpretation Comme nts NA (test code = 3553988399) 133 mmol/L 135-145 L K (test code = 7321554193) 2.5 mmol/L 3.5-5.0 LL CL (test code = 6014386978) 88 mmol/L 98-108 L CO2 TOTAL (test code = 1146798984) 35 mmol/L 23-31 H AGAP (test code = 8997160804) 10 2-16 BUN (test code = 1806452302) 56 mg/dL 7-23 H GLUCOSE (test code = 0005941955) 136 mg/dL 70-110 H CREATININE (test code = 2160-0) 2.78 mg/dL 0.60-1.25 H CALCIUM (test code = 9075264942) 7.5 mg/dL 8.6-10.6 L eGFR (test code = 08025-8) 25.7 mL/min/1.73m2 CKD-EPI eGFR (2020). Assuming creatinine has been stable day-to-day for at least three months, the eGFR indicates Category G4 (15 - 29 mL/min/1.73 m2) Lab Interpretation (test code = 34921-7) Abnormal [facility] GLUCOSE (AUTOMATED)2024-04-11 20:51:47* Test Item Value Reference Range Interpretation Comme nts POCT GLU (test code = 2331861636) 160 mg/dL 70-110 H Lab Interpretation (test cod e = 49513-0) Abnormal [facility] GLUCOSE (AUTOMATED)2024-04-11 17:34:26* Test Item Value Reference Range Interpretation Comme [facility] POCT GLU (test code = 0918943270) 224 mg/dL 70-110 H Lab Interpretation (test cod e = 93492-4) [facility]normal [facility] Cooximeter [id number] 17:25:26 * Test Item Value Reference Range Interpretation Comme nts THB (test code = 3236919348) 9.6 g/dL 13.5-18.0 L %O2HB (test code = 6807118514) 65.7 % 94.0-99.0 L %COHB ART (test code = 0374671561) 0.9 % 0.0-1.5 %METHB ART (test code = 3002413831) 0.2 % 0.4-1.5 L VOL%O2 ART (test code = 7135941759) 8.9 % 15.0-23.0 L Lab Interpretation (test cod e = 23534-7) [facility]normal [facility] CHE[facility] 1 [id number] 17:09:12CHEST SINGLE VIEW CLINICAL HISTORY: TB rule out ORDERING PHYSICIAN: MAKSIM GILL TECHNIQUE: Frontal view of chest COMPARISON: 04/09/2024 FINDINGS: Stable life support lines. The heart size is mildlyenlarged but stable.Diffuse hazy interstitial infiltrates or edema are slightly improved. Smallleftpleural effusion is suspected without interval accumulation. There isno visible pneumothorax. No cav itations of the lungs are seen. Noconvincing nodularity is observed. No acute osseous process is apparent.[facility] (NA, K, CL, CO2, GLUCOSE, BUN, CREATININE, CA)2024-04-11 14:41:52* Test Item Value Reference Range Interpretation Comme nts NA (test code = 7174380011) 129 mmol/L 135-145 L K (test code = 8825798219) 3.1 mmol/L 3.5-5.0 L CL (test code = 7089039610) 89 mmol/L 98-108 L CO2 TOTAL (test code = 9939334934) 26 mmol/L 23-31 AGAP (test code = 5226203717) 14 2-16 BUN (test code = 9115012987) 59 mg/dL 7-23 H GLUCOSE (test code = 1891209459) 170 mg/dL 70-110 H CREATININE (test code = 2160-0) 3.28 mg/dL 0.60-1.25 H CALCIUM (test code = 4876264754) 7.5 mg/dL 8.6-10.6 L eGFR (test code = 89472-0) 21.1 mL/min/1.73m2 CKD-EPI eGFR (2020). Assuming creatinine has been stable day-to-day for at least three months, the eGFR indicates Category G4 (15 - 29 mL/min/1.73 m2) Lab Interpretation (test code = 45225-9) Abnormal [facility] HospitalHepatic Function Panel (85747) (ALB,T.PRO,BILI T,BU/BC,ALT,AST,ALK PHOS)2024-04-11 14:41:52* Test Item Value Reference Range Interpretation Comme nts TOTAL BILI (test code = 8239890699) 1.4 mg/dL 0.1-1.1 H BILI UNCON (test code = 3305696257) 0.3 mg/dL 0.1-1.1 BILI CONJ (test code = 2982770404) 0.0 mg/dL 0.0-0.3 T PROTEIN (test code = 1620346535) 7.4 g/dL 6.3-8.2 ALBUMIN (test code = 6299186766) 3.7 g/dL 3.5-5.0 ALK PHOS (test code = 7691510327) 225 U/L 34-122 H ALTv (test code = 1742-6) 15 U/L 5-50 AST(SGOT) (test code = 0603781911) 50 U/L 13-40 H Lab Interpretation (test cod e = 07143-2) [facility]normal [facility] HospitalMagnesium2024-05-17 14:41:52* Test Item Value Reference Range Interpretation Comme nts MAGNESIUM (test code = 8160524382) 2.1 mg/dL 1.7-2.4 Lab Interpretation (test cod e = 97098-1) Normal [facility] (AUTOMATED)2024-04-11 14:27:48* Test Item Value Reference Range Interpretation Comme nts POCT GLU (test code = 3440767985) 315 mg/dL 70-110 H Lab Interpretation (test cod e = 41966-8) Abnormal [facility] HospitalHep[facility] Function Panel (13095) (ALB,T.PRO,BILI T,BU/BC,ALT,AST,ALK PHOS)2024-04-11 14:01:26* Test Item Value Reference Range Interpretation Comme nts TOTAL BILI (test code = 2975272369) 1.3 mg/dL 0.1-1.1 H BILI UNCON (test code = 7303450744) 0.2 mg/dL 0.1-1.1 BILI CONJ (test code = 4395033722) 0.0 mg/dL 0.0-0.3 T PROTEIN (test code = 0047572224) 6.9 g/dL 6.3-8.2 ALBUMIN (test code = 0741864865) 3.3 g/dL 3.5-5.0 L ALK PHOS (test code = 3321075749) 197 U/L 34-122 H ALTv (test code = 1742-6) 15 U/L 5-50 AST(SGOT) (test code = 6200706568) 40 U/L 13-40 Lab Interpretation (test cod e = 50937-8) [facility]normal [facility] HospitalCbc with [id number] 10:21:41* Test Item Value Reference Range Interpretation Comme nts WBC (test code = 6690-2) 9.91 4.20-10.70 RBC (test code = 789-8) 3.86 4.26-5.52 L HGB (test code = 718-7) 8.9 g/dL 12.2-16.4 L HCT (test code = 4544-3) 29.3 % 38.4-49.3 L MCV (test code = 787-2) 75.9 fL 81.7-95.6 L MCH (test code = 785-6) 23.1 pg 26.1-32.7 L MCHC (test code = 786-4) 30.4 g/dL 31.2-35.0 L RDW-SD (test code = 19915-2) 55.4 fL 38.5-51.6 H RDW-CV (test code = 788-0) 20.5 % 12.1-15.4 H PLT (test code = 777-3) 282 150-328 MPV (test code = 38915-6) 10.1 fL 9.8-13.0 NRBC/100 WBC (test code = 1842435064) 0.0 0.0-10.0 NRBC x10^3 (test code = 6393815769) See_Comment [Automated messa ge] The system which generated this result transmitted reference range: 10*3/?L. The reference range was not used to interpret this result as normal/abnormal. GRAN MAT (NEUT) % (test code = 770-8) 82.3 % IMM GRAN % (test code = 8167045818) 0.80 % LYMPH % (test code = 736-9) 7.5 % MONO % (test code = 5905-5) 7.9 % EOS % (test code = 713-8) 1.4 % BASO % (test code = 706-2) 0.1 % GRAN MAT x10^3(ANC) (test code = 2084335184) 8.16 10*3/uL 1.99-6.95 H IMM GRAN x10^3 (test code = 0396768902) 0.08 10*3/uL 0.00-0.06 H LYMPH x10^3 (test code = 731-0) 0.74 10*3/uL 1.09-3.23 L MONO x10^3 (test code = 742-7) 0.78 10*3/uL 0.36-1.02 EOS x10^3 (test code = 711-2) 0.14 10*3/uL 0.06-0.53 BASO x10^3 (test code = 704-7) 0.01-0.09 Lab Interpretation (test code = 10525-4) [facility]normal [facility] HospitalPONM GLUCOSE (AUTOMATED)2024-04-11 02:01:49* Test Item Value Reference Range Interpretation Comme nts POCT GLU (test code = 6304142967) 159 mg/dL 70-110 H Lab Interpretation (test cod e = 39823-5) Abnormal [facility] Metabolic Panel (NA, K, CL, CO2, GLUCOSE, BUN, CREATININE, CA)2024-04-11 01:25:17* Test Item Value Reference Range Interpretation Comme nts NA (test code = 9597036184) 130 mmol/L 135-145 L K (test code = 4103620486) 3.0 mmol/L 3.5-5.0 L CL (test code = 4814329270) 90 mmol/L 98-108 L CO2 TOTAL (test code = 6060256883) 29 mmol/L 23-31 AGAP (test code = 3185860556) 11 2-16 BUN (test code = 6329368094) 59 mg/dL 7-23 H GLUCOSE (test code = 5339398453) 154 mg/dL 70-110 H CREATININE (test code = 2160-0) 3.54 mg/dL 0.60-1.25 H CALCIUM (test code = 8852388567) 7.5 mg/dL 8.6-10.6 L eGFR (test code = 73464-7) 19.3 mL/min/1.73m2 CKD-EPI eGFR (2020). Assuming creatinine has been stable day-to-day for at least three months, the eGFR indicates Category G4 (15 - 29 mL/min/1.73 m2) Lab Interpretation (test code = 79112-7) [facility]normal [facility] HospitalMagnesium2024-05-17 01:25:17* Test Item Value Reference Range Interpretation Comme nts MAGNESIUM (test code = 7794951895) 2.1 mg/dL 1.7-2.4 Lab Interpretation (test cod e = 21372-0) Normal [facility] HospitalLacaate Bfgcnckqjfglc8316-44-47 23:55:25* Test Item Value Reference Range Interpretation Comme nts LDH (test code = 7755938207) 274 U/L 120-246 H Lab Interpretation (test cod e = 71387-8) [facility] Jfeocnnzowcib1003-19-07 23:55:25* Test Item Value Reference Range Interpretation Comme nts LDH (test code = 8914741656) 274 U/L 120-246 H Lab Interpretation (test cod e = 95314-1) Abnormal [facility] GLUCOSE (AUTOMATED)2024-04-10 23:04:54* Test Item Value Reference Range Interpretation Comme nts POCT GLU (test code = 5682832908) 234 mg/dL 70-110 H Lab Interpretation (test cod e = 34688-6) Abnormal [facility] with Ksun1105-67-05 22:51:43* Test Item Value Reference Range Interpretation Comme nts WBC (test code = 6690-2) 9.87 4.20-10.70 RBC (test code = 789-8) 3.70 4.26-5.52 L HGB (test code = 718-7) 8.5 g/dL 12.2-16.4 L HCT (test code = 4544-3) 27.7 % 38.4-49.3 L MCV (test code = 787-2) 74.9 fL 81.7-95.6 L MCH (test code = 785-6) 23.0 pg 26.1-32.7 L MCHC (test code = 786-4) 30.7 g/dL 31.2-35.0 L RDW-SD (test code = 33933-5) 53.5 fL 38.5-51.6 H RDW-CV (test code = 788-0) 20.1 % 12.1-15.4 H PLT (test code = 777-3) 249 150-328 MPV (test code = 90047-0) 9.6 fL 9.8-13.0 L NRBC/100 WBC (test code = 1754926074) 0.0 0.0-10.0 NRBC x10^3 (test code = 5307925935) See_Comment [Automated messa ge] The system which generated this result transmitted reference range: 10*3/?L. The reference range was not used to interpret this result as normal/abnormal. GRAN MAT (NEUT) % (test code = 770-8) 82.2 % IMM GRAN % (test code = 7640146977) 1.00 % LYMPH % (test code = 736-9) 7.5 % MONO % (test code = 5905-5) 8.0 % EOS % (test code = 713-8) 1.2 % BASO % (test code = 706-2) 0.1 % GRAN MAT x10^3(ANC) (test code = 8028731029) 8.11 10*3/uL 1.99-6.95 H IMM GRAN x10^3 (test code = 8105094874) 0.10 10*3/uL 0.00-0.06 H LYMPH x10^3 (test code = 731-0) 0.74 10*3/uL 1.09-3.23 L MONO x10^3 (test code = 742-7) 0.79 10*3/uL 0.36-1.02 EOS x10^3 (test code = 711-2) 0.12 10*3/uL 0.06-0.53 BASO x10^3 (test code = 704-7) 0.01-0.09 Lab Interpretation (test code = 81838-3) [facility]normal [facility] HospitalFibrinogen2024-05-16 22:30:15* Test Item Value Reference Range Interpretation Comme nts Fibrinogen (test code = 9043224810) 436 mg/dL 167-453 Lab Interpretation (test cod e = 74997-9) Normal [facility] HospitalFibrinogen2024-05-16 22:30:15* Test Item Value Reference Range Interpretation Comme nts Fibrinogen (test code = 4837306082) 436 mg/dL 167-453 Lab Interpretation (test cod e = 54257-0) Normal [facility] HospitalaPTT2024-05-16 19:37:48* Test Item Value Reference Range Interpretation Comme nts APTT Patient (test code = 3173-2) 37 26-36 H Lab Interpretation (test cod e = 36969-4) Abnormal [facility] HospitalProthrombin Time / [id number] 19:37:48* Test Item Value Reference Range Interpretation Comme nts PROTIME PATIENT (test code = 5964-2) 13.1 10.1-12.6 H INR (test code = 6301-6) 1.2 Normal INR <1.1; Warfarin Therapeutic range 2.0 to 3.0 or 2.5 to 3.5, depending upon the indications. Lab Interpretation (test code = 29589-1) [facility]normal [facility] HospitalProthrombin Time / [id number] 19:37:48* Test Item Value Reference Range Interpretation Comme nts PROTIME PATIENT (test code = 5964-2) 13.1 10.1-12.6 H INR (test code = 6301-6) 1.2 Normal INR <1.1; Warfarin Therapeutic range 2.0 to 3.0 or 2.5 to 3.5, depending upon the indications. Lab Interpretation (test code = 85173-9) Abnormal [facility] without Ygxo2332-04-97 19:34:07* Test Item Value Reference Range Interpretation Comme nts WBC (test code = 6690-2) 9.60 4.20-10.70 RBC (test code = 789-8) 3.68 4.26-5.52 L HGB (test code = 718-7) 8.5 g/dL 12.2-16.4 L HCT (test code = 4544-3) 27.4 % 38.4-49.3 L MCH (test code = 785-6) 23.1 pg 26.1-32.7 L MCV (test code = 787-2) 74.5 fL 81.7-95.6 L MCHC (test code = 786-4) 31.0 g/dL 31.2-35.0 L PLT (test code = 777-3) 254 150-328 MPV (test code = 03577-7) 9.2 fL 9.8-13.0 L RDW-CV (test code = 788-0) 20.0 % 12.1-15.4 H RDW-SD (test code = 38297-8) 53.1 fL 38.5-51.6 H NRBC x10^3 (test code = 0629595022) See_Comment [Automated TastemakerXa ge] The system which generated this result transmitted reference range: 10*3/?L. The reference range was not used to interpret this result as normal/abnormal. NRBC/100 WBC (test code = 6466474804) 0.0 0.0-10.0 IPF % (test code = 2581941737) Lab Interpretation (test code = 14678-9) Abnormal [facility] without Sqbl2464-06-41 19:34:07* Test Item Value Reference Range Interpretation Comme nts WBC (test code = 6690-2) 9.60 4.20-10.70 RBC (test code = 789-8) 3.68 4.26-5.52 L HGB (test code = 718-7) 8.5 g/dL 12.2-16.4 L HCT (test code = 4544-3) 27.4 % 38.4-49.3 L MCH (test code = 785-6) 23.1 pg 26.1-32.7 L MCV (test code = 787-2) 74.5 fL 81.7-95.6 L MCHC (test code = 786-4) 31.0 g/dL 31.2-35.0 L PLT (test code = 777-3) 254 150-328 MPV (test code = 41826-2) 9.2 fL 9.8-13.0 L RDW-CV (test code = 788-0) 20.0 % 12.1-15.4 H RDW-SD (test code = 85635-8) 53.1 fL 38.5-51.6 H NRBC x10^3 (test code = 3360223941) See_Comment [Automated TastemakerXa ge] The system which generated this result transmitted reference range: 10*3/?L. The reference range was not used to interpret this result as normal/abnormal. NRBC/100 WBC (test code = 7939825743) 0.0 0.0-10.0 IPF % (test code = 1461338025) Lab Interpretation (test code = 86519-7) [facility]normal [facility] HospitalCT THORAX WO [id number] 19:04:27 ORDERING PHYSICIAN: NEGIN GILL. HISTORY: Shortness of breath TECHNIQUE: CT chest without intravenous contrast. ?CT was performedaccording to ALARA (As Low As Reasonably Achievable). COMPARISON: 04/09/2024; CT abdomen and pelvis 03/03/2024 FINDINGS: Great Vessels: Visualized portions of the aorta and main pulmonary arteryare normal. Heart: The heart is enlarged. There is no pericardial effusion. [facility] term[facility] within the right pulmonary artery,near the aortic bifurcation. A left IJ line terminates at the superior venacava. Lymphadenopathy: No pathologically enlarged mediastinal, hilar, or axillarylymph nodes. Lungs: Compressive subsegmental atelectasis is seen at the dependent upperand lower lobes, adjacent pleural effusions. There is lesser bandlikesubsegmental atelectasis at the dependent lingula. Lungs are otherwise wellaerated. Airways: Airways are clear. ?No bronchiectasis. Pleura: Small pleural effusions are present. There is no pneumothorax. Other: The thyroid is normal. Visualized abdomen: Adrenal glands are incompletely imaged. There islobulated contour of the liver. A moderate quantity of ascites is seen. Osseous Structures: No suspiciouslesions are identified. There is diffuse subcutaneous edema.[facility] THORAX WO CONTRAST 2024-04-10 19:04:27ORDERING PHYSICIAN: NEGIN GILL. HISTORY: Shortness of breath TECHNIQUE: CT chest without intravenous contrast. ?CT was performedaccording to ALARA (As Low As Reasonably Achievable). COMPARISON: 03/26; CT abdomen and pelvis 03/03/2024 FINDINGS: Great Vessels: Visualized portions of the aorta and main pulmonary arteryare normal. Heart: The heart is enlarged. There is no pericardial effusion. Aright IJpulmonary arterial catheter terminates within the right pulmonary artery,near the aortic bifurcation. A left IJ line terminates at the superior venacava. Lymphadenopathy: No pathologically enlarged mediastinal, hilar, or axillarylymph nodes. Lungs: Compressive subsegmental atelectasis is seen at the dependent upperand lower lobes, adjacent pleural effusions. There is lesser bandlikesubsegmental atelectasis at the dependent lingula. Lungs are otherwise wellaerated. Airways: Airways are clear. ?No bronchiectasis. Pleura: Small pleural effusions are present. There is no pneumothorax. Other: The thyroid is normal. Visualized abdomen: Adrenal glands are incompletely imaged. There islobulated contour of the liver. A moderate quantity of ascites is seen. Osseous Structures: No suspiciouslesions are identified. There is diffuse subcutaneous edema.[facility] GLUCOSE (AUTOMATED)2024-04-10 18:05:39* Test Item Value Reference Range Interpretation Comme [facility] POCT GLU (test code = 9936403988) 213 mg/dL 70-110 H Lab Interpretation (test cod e = 96773-7) Abnormal [facility] GLUCOSE (AUTOMATED)2024-04-10 14:14:59* Test Item Value Reference Range Interpretation Comme [facility] POCT GLU (test code = 2050479736) 207 mg/dL 70-110 H Lab Interpretation (test cod e = 63506-7) [facility]normal [facility] HospitalMagnesium2024-05-16 09:33:22* Test Item Value Reference Range Interpretation Comme nts MAGNESIUM (test code = 4137333304) 2.2 mg/dL 1.7-2.4 Lab Interpretation (test cod e = 75643-7) Normal [facility]. Metabolic Panel (90971)2024-04-10 09:33:22* Test Item Value Reference Range Interpretation Comme nts NA (test code = 0430307983) 131 mmol/L 135-145 L K (test code = 5215425146) 3.3 mmol/L 3.5-5.0 L CL (test code = 6357985269) 90 mmol/L 98-108 L CO2 TOTAL (test code = 7363561365) 26 mmol/L 23-31 AGAP (test code = 8478692320) 15 2-16 BUN (test code = 9149009761) 62 mg/dL 7-23 H GLUCOSE (test code = 5345004349) 173 mg/dL 70-110 H CREATININE (test code = 2160-0) 3.82 mg/dL 0.60-1.25 H TOTAL BILI (test code = 4796044491) 1.4 mg/dL 0.1-1.1 H CALCIUM (test code = 6616694419) 7.7 mg/dL 8.6-10.6 L T PROTEIN (test code = 6601589497) 7.1 g/dL 6.3-8.2 ALBUMIN (test code = 7111594616) 3.6 g/dL 3.5-5.0 ALK PHOS (test code = 6084873655) 191 U/L 34-122 H ALTv (test code = 1742-6) 12 U/L 5-50 AST(SGOT) (test code = 1787752519) 43 U/L 13-40 H eGFR (test code = 29874-1) 17.6 mL/min/1.73m2 CKD-EPI eGFR (2020). Assuming creatinine has been stable day-to-day for at least three months, the eGFR indicates Category G4 (15 - 29 mL/min/1.73 m2) Lab Interpretation (test code = 54345-4) Abnormal [facility] with Iaau4476-14-61 09:27:01* Test Item Value Reference Range Interpretation Comme nts WBC (test code = 6690-2) 10.09 4.20-10.70 RBC (test code = 789-8) 3.78 4.26-5.52 L HGB (test code = 718-7) 8.7 g/dL 12.2-16.4 L HCT (test code = 4544-3) 28.3 % 38.4-49.3 L MCV (test code = 787-2) 74.9 fL 81.7-95.6 L MCH (test code = 785-6) 23.0 pg 26.1-32.7 L MCHC (test code = 786-4) 30.7 g/dL 31.2-35.0 L RDW-SD (test code = 92761-6) 54.2 fL 38.5-51.6 H RDW-CV (test code = 788-0) 20.4 % 12.1-15.4 H PLT (test code = 777-3) 277 150-328 MPV (test code = 71284-9) 9.9 fL 9.8-13.0 NRBC/100 WBC (test code = 8703646772) 0.0 0.0-10.0 NRBC x10^3 (test code = 0745570766) See_Comment [Automated messa ge] The system which generated this result transmitted reference range: 10*3/?L. The reference range was not used to interpret this result as normal/abnormal. GRAN MAT (NEUT) % (test code = 770-8) 83.8 % IMM GRAN % (test code = 9977621541) 0.70 % LYMPH % (test code = 736-9) 6.6 % MONO % (test code = 5905-5) 7.5 % EOS % (test code = 713-8) 1.2 % BASO % (test code = 706-2) 0.2 % GRAN MAT x10^3(ANC) (test code = 9487017490) 8.45 10*3/uL 1.99-6.95 H IMM GRAN x10^3 (test code = 0125105104) 0.07 10*3/uL 0.00-0.06 H LYMPH x10^3 (test code = 731-0) 0.67 10*3/uL 1.09-3.23 L MONO x10^3 (test code = 742-7) 0.76 10*3/uL 0.36-1.02 EOS x10^3 (test code = 711-2) 0.12 10*3/uL 0.06-0.53 BASO x10^3 (test code = 704-7) 0.01-0.09 Lab Interpretation (test code = 78784-7) [facility]normal [facility] 1 [id number] 03:11:40EXAM: XR CHEST 1 VW HISTORY: 58 years-old Male; L IJ CVC Placement TECHNIQUE: Frontal radiograph ofthe chest. COMPARISON: 04/07/2024. FINDINGS: The tip of left IJ line projects over mid SVC. The tip of right IJSwan-Ana Cristina catheter projects over the pulmonary trunk. Bilateral hazy opacification of suman and increased interstitial marking.Prominent pulmonary vasculature. Left costophrenic angle is beyond rdqrdpyj-ck-zqun, suspected a small left pleural effusion. The cardiomediastinal silhouette is enlarged..[facility] GLUCOSE (AUTOMATED)2024-04-10 02:10:30* Test Item Value Reference Range Interpretation Comme [facility] POCT GLU (test code = 3146504383) 210 mg/dL 70-110 H Notified Provide r Lab Interpretation (test code = 33841-9) Abnormal [facility] GLUCOSE (AUTOMATED)2024-04-09 22:27:44* Test Item Value Reference Range Interpretation Comme [facility] POCT GLU (test code = 3717269544) 174 mg/dL 70-110 H Notified Provide r Lab Interpretation (test code = 92709-2) [facility]normal [facility] (NA, K, CL, CO2, GLUCOSE, BUN, CREATININE, CA)2024-04-09 20:04:36* Test Item Value Reference Range Interpretation Comme [facility] NA (test code = 5397147109) 131 mmol/L 135-145 L K (test code = 7902368004) 3.2 mmol/L 3.5-5.0 L CL (test code = 4110144676) 89 mmol/L 98-108 L CO2 TOTAL (test code = 0151627582) 28 mmol/L 23-31 AGAP (test code = 8457380838) 14 2-16 BUN (test code = 1378533583) 63 mg/dL 7-23 H GLUCOSE (test code = 3393858144) 181 mg/dL 70-110 H CREATININE (test code = 2160-0) 3.81 mg/dL 0.60-1.25 H CALCIUM (test code = 1965289717) 7.6 mg/dL 8.6-10.6 L eGFR (test code = 53452-0) 17.6 mL/min/1.73m2 CKD-EPI eGFR (2020). Assuming creatinine has been stable day-to-day for at least three months, the eGFR indicates Category G4 (15 - 29 mL/min/1.73 m2) Lab Interpretation (test code = 14560-9) Abnormal [facility] GLUCOSE (AUTOMATED)2024-04-09 18:10:27* Test Item Value Reference Range Interpretation Comme nts POCT GLU (test code = 9827709288) 187 mg/dL 70-110 H Notified Provide r Lab Interpretation (test code = 85985-9) Abnormal [facility] GLUCOSE (AUTOMATED)2024-04-09 14:12:29* Test Item Value Reference Range Interpretation Comme nts POCT GLU (test code = 4473206347) 195 mg/dL 70-110 H Lab Interpretation (test cod e = 52815-3) Abnormal [facility] HospitalLacaic Acid Whole Wzwiz8818-23-55 13:08:09* Test Item Value Reference Range Interpretation Comme nts LACTIC ACID (test code = 4398768597) 1.57 mmol/L 0.50-2.20 QUES Lab Interpretation (test cod e = 08938-7) Normal [facility] GLUCOSE (AUTOMATED)2024-04-09 12:20:46* Test Item Value Reference Range Interpretation Comme nts POCT GLU (test code = 0636159634) 154 mg/dL 70-110 H Notified Provide r Lab Interpretation (test code = 98450-6) Abnormal [facility] [id number] 06:01:09* Test Item Value Reference Range Interpretation Comme nts Blood Culture-Aerobic (test code = 46397-9) No organisms isolated No growth Previous preliminary verified result was Culture In Progress on 04/04/2024 at 0401 CDTPrevious preliminary verified result was No growth at 24 hours on 04/05/2024 at 0101 CDTPrevious preliminary verified result was No growth at 48 hours on 04/06/2024 at 0101 CDTPrevious preliminary verified result was No growth at 72 hours on 04/07/2024 at 0101 T Blood Culture-Anaerobic (test code = 66736-2) No organisms isolated No growth Previous preliminary verified result was Culture In Progress on 04/04/2024 at 0401 CDTPrevious preliminary verified result was No growth at 24 hours on 04/05/2024 at 0101 CDTPrevious preliminary verified result was No growth at 48 hours on 04/06/2024 at 0101 CDTPrevious preliminary verified result was No growth at 72 hours on 04/07/2024 at 0101 CDT Lab Interpretation (test code = 15766-9) [facility] CULTURE [id number] 06:01:09* Test Item Value Reference Range Interpretation Comme [facility] Blood Culture-Aerobic (test code = 16221-5) No organisms isolated No growth Previous preliminary verified result was Culture In Progress on 04/04/2024 at 0401 CDTPrevious preliminary verified result was No growth at 24 hours on 04/05/2024 at 0101 CDTPrevious preliminary verified result was No growth at 48 hours on 04/06/2024 at 0101 CDTPrevious preliminary verified result was No growth at 72 hours on 04/07/2024 at 010[facility] Blood Culture-Anaerobic (test code = 71854-5) No organisms isolated No growth Previous preliminary verified result was Culture In Progress on 04/04/2024 at 0401 CDTPrevious preliminary verified result was No growth at 24 hours on 04/05/2024 at 0101 CDTPrevious preliminary verified result was No growth at 48 hours on 04/06/2024 at 0101 CDTPrevious preliminary verified result was No growth at 72 hours on 04/07/2024 at 0101 CDT Lab Interpretation (test code = 25026-2) [facility]PONM GLUCOSE (AUTOMATED)2024-04-09 02:33:24* Test Item Value Reference Range Interpretation Comme nts POCT GLU (test code = 7251081069) 122 mg/dL 70-110 H Notified Provide r Lab Interpretation (test code = 92886-0) Abnormal [facility] GLUCOSE (AUTOMATED)2024-04-08 20:14:29* Test Item Value Reference Range Interpretation Comme nts POCT GLU (test code = 8546930322) 234 mg/dL 70-110 H Notified Provide r Lab Interpretation (test code = 94925-9) Abnormal [facility] GLUCOSE (AUTOMATED)2024-04-08 20:14:29* Test Item Value Reference Range Interpretation Comme nts POCT GLU (test code = 5640569912) 234 mg/dL 70-110 H Notified Provide r Lab Interpretation (test code = 71837-9) Abnormal [facility] GLUCOSE (AUTOMATED)2024-04-08 16:16:45* Test Item Value Reference Range Interpretation Comme nts POCT GLU (test code = 0662866136) 245 mg/dL 70-110 H Notified Provide r Lab Interpretation (test code = 18991-6) Abnormal [facility] GLUCOSE (AUTOMATED)2024-04-08 16:16:45* Test Item Value Reference Range Interpretation Comme nts POCT GLU (test code = 7193999744) 245 mg/dL 70-110 H Notified Provide r Lab Interpretation (test code = 96890-1) Abnormal [facility] GLUCOSE (AUTOMATED)2024-04-08 12:13:50* Test Item Value Reference Range Interpretation Comme nts POCT GLU (test code = 3877037640) 169 mg/dL 70-110 H Notified Provide r Lab Interpretation (test code = 10308-7) Abnormal [facility] GLUCOSE (AUTOMATED)2024-04-08 12:13:50* Test Item Value Reference Range Interpretation Comme nts POCT GLU (test code = 1191850923) 169 mg/dL 70-110 H Notified Provide r Lab Interpretation (test code = 27396-1) Abnormal [facility] GLUCOSE (AUTOMATED)2024-04-08 02:46:07* Test Item Value Reference Range Interpretation Comme nts POCT GLU (test code = 1783571770) 235 mg/dL 70-110 H Lab Interpretation (test cod e = 33681-2) Abnormal [facility] GLUCOSE (AUTOMATED)2024-04-08 02:46:07* Test Item Value Reference Range Interpretation Comme nts POCT GLU (test code = 0017706166) 235 mg/dL 70-110 H Lab Interpretation (test cod e = 17106-2) [facility] 16:30:48* Test Item Value Reference Range Interpretation Comme nts POCT GLU (test code = 5971269176) 190 mg/dL 70-110 H Lab Interpretation (test cod e = 39218-8) Abnormal [facility] GLUCOSE (AUTOMATED)2024-04-07 16:30:48* Test Item Value Reference Range Interpretation Comme nts POCT GLU (test code = 4723338708) 190 mg/dL 70-110 H Lab Interpretation (test cod e = 61846-1) Abnormal [facility] GLUCOSE (AUTOMATED)2024-04-07 16:30:48* Test Item Value Reference Range Interpretation Comme nts POCT GLU (test code = 2181700862) 147 mg/dL 70-110 H Lab Interpretation (test cod e = 31765-2) Abnormal [facility] GLUCOSE (AUTOMATED)2024-04-07 16:30:48* Test Item Value Reference Range Interpretation Comme nts POCT GLU (test code = 1289619551) 147 mg/dL 70-110 H Lab Interpretation (test cod e = 49460-5) Abnormal [facility] GLUCOSE (AUTOMATED)2024-04-07 16:30:43* Test Item Value Reference Range Interpretation Comme nts POCT GLU (test code = 1653366765) 209 mg/dL 70-110 H Lab Interpretation (test cod e = 59343-2) Abnormal [facility] GLUCOSE (AUTOMATED)2024-04-07 16:30:43* Test Item Value Reference Range Interpretation Comme nts POCT GLU (test code = 3408453721) 209 mg/dL 70-110 H Lab Interpretation (test cod e = 25660-5) [facility] [id number] 15:53:45ORDERING PHYSICIAN: FRANK LR. HISTORY: SOB TECHNIQUE: AP COMPARISON: 04/03/2024 FINDINGS: Lungs: ?Retrocardiac consolidation obscures the hemidiaphragm. The rightlung is grossly clear. Pleura: ?No effusion or pleural disease is seen. ?No pneumothorax. Mediastinum/Suman: ?No masses or adenopathy. Heart: ?The heart is not enlarged. Other: ?No acute osseous abnormality is seen. [facility] [id number] 15:53:45ORDERING PHYSICIAN: FRANK LR. HISTORY: SOB TECHNIQUE: AP COMPARISON: 04/03/2024 FINDINGS: Lungs: ?Retrocardiac consolidation obscures the hemidiaphragm. The rightlung is grossly clear. Pleura: ?No effusion or pleural disease is seen. ?No pneumothorax. Mediastinum/Suman: ?No masses or adenopathy. Heart: ?The heart is not enlarged. Other: ?No acute osseous abnormality is seen. [facility] Odkht4507-61-99 14:10:35* Test Item Value Reference Range Interpretation Comme nts LACTIC ACID (test code = 5579912198) 1.74 mmol/L 0.50-2.20 Lab Interpretation (test cod e = 42237-1) Normal [facility] Acid Whole Tsbus2177-98-31 14:10:35* Test Item Value Reference Range Interpretation Comme nts LACTIC ACID (test code = 8121822722) 1.74 mmol/L 0.50-2.20 Lab Interpretation (test cod e = 76826-9) Normal [facility] GLUCOSE (AUTOMATED)2024-04-07 02:13:38* Test Item Value Reference Range Interpretation Comme nts POCT GLU (test code = 6779028001) 172 mg/dL 70-110 H Lab Interpretation (test cod e = 78920-4) Abnormal [facility] GLUCOSE (AUTOMATED)2024-04-07 02:13:38* Test Item Value Reference Range Interpretation Comme nts POCT GLU (test code = 8659810885) 172 mg/dL 70-110 H Lab Interpretation (test cod e = 72744-1) Abnormal [facility] GLUCOSE (AUTOMATED)2024-04-06 21:52:52* Test Item Value Reference Range Interpretation Comme nts POCT GLU (test code = 7899831146) 137 mg/dL 70-110 H Lab Interpretation (test cod e = 84735-9) Abnormal [facility] GLUCOSE (AUTOMATED)2024-04-06 21:52:52* Test Item Value Reference Range Interpretation Comme nts POCT GLU (test code = 1309379697) 137 mg/dL 70-110 H Lab Interpretation (test cod e = 93821-4) Abnormal [facility] GLUCOSE (AUTOMATED)2024-04-06 18:42:20* Test Item Value Reference Range Interpretation Comme nts POCT GLU (test code = 9077241606) 130 mg/dL 70-110 H Lab Interpretation (test cod e = 33306-5) Abnormal [facility] GLUCOSE (AUTOMATED)2024-04-06 18:42:20* Test Item Value Reference Range Interpretation Comme nts POCT GLU (test code = 2945843552) 130 mg/dL 70-110 H Lab Interpretation (test cod e = 41840-7) Abnormal [facility] GLUCOSE (AUTOMATED)2024-04-06 13:33:34* Test Item Value Reference Range Interpretation Comme nts POCT GLU (test code = 7349771620) 124 mg/dL 70-110 H Lab Interpretation (test cod e = 77549-5) Abnormal [facility] GLUCOSE (AUTOMATED)2024-04-06 13:33:34* Test Item Value Reference Range Interpretation Comme nts POCT GLU (test code = 2837744621) 124 mg/dL 70-110 H Lab Interpretation (test cod e = 99521-2) Abnormal [facility] GLUCOSE (AUTOMATED)2024-04-06 01:38:11* Test Item Value Reference Range Interpretation Comme nts POCT GLU (test code = 1779779301) 159 mg/dL 70-110 H Lab Interpretation (test cod e = 44781-2) Abnormal [facility] GLUCOSE (AUTOMATED)2024-04-06 01:38:11* Test Item Value Reference Range Interpretation Comme nts POCT GLU (test code = 2306781048) 159 mg/dL 70-110 H Lab Interpretation (test cod e = 13319-4) [facility]normal [facility] Whole Acqit0692-43-35 01:18:50* Test Item Value Reference Range Interpretation Comme nts LACTIC ACID (test code = 7345356153) 2.02 mmol/L 0.50-2.20 QUES Lab Interpretation (test cod e = 37088-6) Normal [facility] Whole Hpmwy8588-72-78 01:18:50* Test Item Value Reference Range Interpretation Comme nts LACTIC ACID (test code = 7784773943) 2.02 mmol/L 0.50-2.20 QUES Lab Interpretation (test cod e = 34746-3) Normal [facility] GLUCOSE (AUTOMATED)2024-04-05 21:26:36* Test Item Value Reference Range Interpretation Comme nts POCT GLU (test code = 8904024445) 102 mg/dL 70-110 Lab Interpretation (test cod e = 85202-6) Normal [facility] GLUCOSE (AUTOMATED)2024-04-05 21:26:36* Test Item Value Reference Range Interpretation Comme nts POCT GLU (test code = 5141278193) 102 mg/dL 70-110 Lab Interpretation (test cod e = 99223-5) Normal [facility] RETROPERITONEAL [id number] 20:32:22 Ultrasound of the kidneys History: possible obscuration in renal Renal US Prior exam: None Findings: The kidneys are symmetric in size bilaterally. ?The right kidney rutsodpz32.5 centimeters in length. ?The left kidney measures 10.8 centimeters inlength. ?There is no hydronephrosis or perinephric fluid collections. There is a 1.3 cm small calyceal diverticulum at the lower left kidneywhich is confirmed on previous CT exam. The bladder is distended and isnormal in contour. Mild perihepatic free fluid is incidentally seen.[facility] RETROPERITONEAL [id number] 20:32:22Ultrasound of the kidneys History: possible obscuration in renal Renal US Prior exam: None Findings: The kidneys are symmetric in size bilaterally. ?The right kidney gdlicfwj65.5 centimeters in length. ?The left kidney measures 10.8 centimeters inlength. ?There is no hydronephrosis or perinephric fluid collections. There is a 1.3 cm small calyceal diverticulum at the lower left kidneywhich is confirmed on previous CT exam. The bladder is distended and isnormal in contour. Mild perihepatic free fluid is incidentally seen.[facility] RET[facility]OPER[facility] [id number] 20:32:22Ultrasound of the kidneys History: possible obscuration in renal Renal US Prior exam: None Findings: The kidneys are symmetric in size bilaterally. ?The right kidney ffakzpzg48.5 centimeters in length. ?The left kidney measures 10.8 centimeters inlength. ?There is no hydronephrosis or perinephric fluid collections. There is a 1.3 cm small calyceal diverticulum at the lower left kidneywhich is confirmed on previous CT exam. The bladder is distended and isnormal in contour. Mild perihepatic free f luid is incidentally seen.[facility] GLUCOSE (AUTOMATED)2024-04-05 18:07:57* Test Item Value Reference Range Interpretation Comme nts POCT GLU (test code = 7704885955) 128 mg/dL 70-110 H Lab Interpretation (test cod e = 31523-9) Abnormal [facility] GLUCOSE (AUTOMATED)2024-04-05 18:07:57* Test Item Value Reference Range Interpretation Comme nts POCT GLU (test code = 5064276421) 128 mg/dL 70-110 H Lab Interpretation (test cod e = 43060-8) Abnormal [facility] Whole Wwhrv9601-01-61 18:01:05* Test Item Value Reference Range Interpretation Comme nts LACTIC ACID (test code = 6863477920) 2.42 mmol/L 0.50-2.20 H QUES Lab Interpretation (test cod e = 27764-2) Abnormal [facility] Whole Assgz3813-84-83 18:01:05* Test Item Value Reference Range Interpretation Comme nts LACTIC ACID (test code = 5632885902) 2.42 mmol/L 0.50-2.20 H QUES Lab Interpretation (test cod e = 93537-6) Abnormal [facility] GLUCOSE (AUTOMATED)2024-04-05 14:03:11* Test Item Value Reference Range Interpretation Comme nts POCT GLU (test code = 3385449277) 219 mg/dL 70-110 H Lab Interpretation (test cod e = 32922-3) Abnormal [facility] GLUCOSE (AUTOMATED)2024-04-05 14:03:11* Test Item Value Reference Range Interpretation Comme nts POCT GLU (test code = 7814561146) 219 mg/dL 70-110 H Lab Interpretation (test cod e = 33318-7) Abnormal [facility] GLUCOSE (AUTOMATED)2024-04-04 18:32:05* Test Item Value Reference Range Interpretation Comme [facility] POCT GLU (test code = 0095080217) 176 mg/dL 70-110 H Lab Interpretation (test cod e = 52323-4) Abnormal [facility] GLUCOSE (AUTOMATED)2024-04-04 18:32:05* Test Item Value Reference Range Interpretation Comme nts POCT GLU (test code = 9116184393) 176 mg/dL 70-110 H Lab Interpretation (test cod e = 22391-1) Abnormal [facility] with Vlju7835-73-53 11:20:55* Test Item Value Reference Range Interpretation Comme nts WBC (test code = 6690-2) 12.16 4.20-10.70 H RBC (test code = 789-8) 4.65 4.26-5.52 HGB (test code = 718-7) 10.7 g/dL 12.2-16.4 L HCT (test code = 4544-3) 34.8 % 38.4-49.3 L MCV (test code = 787-2) 74.8 fL 81.7-95.6 L MCH (test code = 785-6) 23.0 pg 26.1-32.7 L MCHC (test code = 786-4) 30.7 g/dL 31.2-35.0 L RDW-SD (test code = 57711-8) 52.8 fL 38.5-51.6 H RDW-CV (test code = 788-0) 20.8 % 12.1-15.4 H PLT (test code = 777-3) 160 150-328 MPV (test code = 61847-1) 11.6 fL 9.8-13.0 IPF % (test code = 3807497504) 7.1 % 1.2-10.7 Platelet count measured by fluorescence method. NRBC/100 WBC (test code = 8598809165) 0.0 0.0-10.0 NRBC x10^3 (test code = 5667331790) See_Comment [Automated messa ge] The system which generated this result transmitted reference range: 10*3/?L. The reference range was not used to interpret this result as normal/abnormal. GRAN MAT (NEUT) % (test code = 770-8) 82.3 % IMM GRAN % (test code = 5465460333) 0.70 % LYMPH % (test code = 736-9) 6.7 % MONO % (test code = 5905-5) 10.0 % EOS % (test code = 713-8) 0.1 % BASO % (test code = 706-2) 0.2 % GRAN MAT x10^3(ANC) (test code = 6003255497) 10.02 10*3/uL 1.99-6.95 H IMM GRAN x10^3 (test code = 6205542016) 0.09 10*3/uL 0.00-0.06 H LYMPH x10^3 (test code = 731-0) 0.81 10*3/uL 1.09-3.23 L MONO x10^3 (test code = 742-7) 1.21 10*3/uL 0.36-1.02 H EOS x10^3 (test code = 711-2) 0.06-0.53 L BASO x10^3 (test code = 704-7) 0.01-0.09 JAYLA CELLS (test code = 7790-9) 2+ See_Comment A [Automated messa ge] The system which generated this result transmitted reference range: (none). The reference range was not used to interpret this result as normal/abnormal. ELLIPTO/OVAL (test code = 05360-6) 2+ See_Comment A [Automated messa ge] The system which generated this result transmitted reference range: (none). The reference range was not used to interpret this result as normal/abnormal. Lab Interpretation (test code = 55690-5) Abnormal [facility] with Vkkw3749-88-28 11:20:55* Test Item Value Reference Range Interpretation Comme nts WBC (test code = 6690-2) 12.16 4.20-10.70 H RBC (test code = 789-8) 4.65 4.26-5.52 HGB (test code = 718-7) 10.7 g/dL 12.2-16.4 L HCT (test code = 4544-3) 34.8 % 38.4-49.3 L MCV (test code = 787-2) 74.8 fL 81.7-95.6 L MCH (test code = 785-6) 23.0 pg 26.1-32.7 L MCHC (test code = 786-4) 30.7 g/dL 31.2-35.0 L RDW-SD (test code = 53568-7) 52.8 fL 38.5-51.6 H RDW-CV (test code = 788-0) 20.8 % 12.1-15.4 H PLT (test code = 777-3) 160 150-328 MPV (test code = 45106-8) 11.6 fL 9.8-13.0 IPF % (test code = 5613865352) 7.1 % 1.2-10.7 Platelet count measured by fluorescence method. NRBC/100 WBC (test code = 1017394878) 0.0 0.0-10.0 NRBC x10^3 (test code = 5106378858) See_Comment [Automated messa ge] The system which generated this result transmitted reference range: 10*3/?L. The reference range was not used to interpret this result as normal/abnormal. GRAN MAT (NEUT) % (test code = 770-8) 82.3 % IMM GRAN % (test code = 4463557132) 0.70 % LYMPH % (test code = 736-9) 6.7 % MONO % (test code = 5905-5) 10.0 % EOS % (test code = 713-8) 0.1 % BASO % (test code = 706-2) 0.2 % GRAN MAT x10^3(ANC) (test code = 7527157843) 10.02 10*3/uL 1.99-6.95 H IMM GRAN x10^3 (test code = 7513872089) 0.09 10*3/uL 0.00-0.06 H LYMPH x10^3 (test code = 731-0) 0.81 10*3/uL 1.09-3.23 L MONO x10^3 (test code = 742-7) 1.21 10*3/uL 0.36-1.02 H EOS x10^3 (test code = 711-2) 0.06-0.53 L BASO x10^3 (test code = 704-7) 0.01-0.09 JAYLA CELLS (test code = 7790-9) 2+ See_Comment A [Automated messa ge] The system which generated this result transmitted reference range: (none). The reference range was not used to interpret this result as normal/abnormal. ELLIPTO/OVAL (test code = 29671-4) 2+ See_Comment A [Automated messa ge] The system which generated this result transmitted reference range: (none). The reference range was not used to interpret this result as normal/abnormal. Lab Interpretation (test code = 64892-2) [facility]normal [facility]2024-[facility]-10 10:56:50* Test Item Value Reference Range Interpretation Comme nts MAGNESIUM (test code = 8512357861) 2.4 mg/dL 1.7-2.4 Lab Interpretation (test cod e = 90127-4) Normal [facility] Metabolic Panel (NA, K, CL, CO2, GLUCOSE, BUN, CREATININE, CA)2024-04-04 10:56:50* Test Item Value Reference Range Interpretation Comme nts NA (test code = 8145562043) 133 mmol/L 135-145 L K (test code = 1292298287) 4.3 mmol/L 3.5-5.0 CL (test code = 0822622602) 91 mmol/L 98-108 L CO2 TOTAL (test code = 6484033859) 33 mmol/L 23-31 H AGAP (test code = 1419615177) 9 2-16 BUN (test code = 5367935835) 45 mg/dL 7-23 H GLUCOSE (test code = 2659324221) 208 mg/dL 70-110 H CREATININE (test code = 2160-0) 2.00 mg/dL 0.60-1.25 H CALCIUM (test code = 5439577438) 8.0 mg/dL 8.6-10.6 L eGFR (test code = 88419-6) 38.2 mL/min/1.73m2 CKD-EPI eGFR (2020). Assuming creatinine has been stable day-to-day for at least three months, the eGFR indicates Category G3b (30 - 44 mL/min/1.73 m2) Lab Interpretation (test code = 19766-0) [facility]2024-[facility]-10 10:56:50* Test Item Value Reference Range Interpretation Comme nts MAGNESIUM (test code = 2206580637) 2.4 mg/dL 1.7-2.4 Lab Interpretation (test cod e = 00969-9) Normal [facility] Metabolic Panel (NA, K, CL, CO2, GLUCOSE, BUN, CREATININE, CA)2024-04-04 10:56:50* Test Item Value Reference Range Interpretation Comme nts NA (test code = 4303607597) 133 mmol/L 135-145 L K (test code = 4674741806) 4.3 mmol/L 3.5-5.0 CL (test code = 1783052761) 91 mmol/L 98-108 L CO2 TOTAL (test code = 8213282109) 33 mmol/L 23-31 H AGAP (test code = 6253080080) 9 2-16 BUN (test code = 5816223056) 45 mg/dL 7-23 H GLUCOSE (test code = 6722740814) 208 mg/dL 70-110 H CREATININE (test code = 2160-0) 2.00 mg/dL 0.60-1.25 H CALCIUM (test code = 4322086795) 8.0 mg/dL 8.6-10.6 L eGFR (test code = 59475-8) 38.2 mL/min/1.73m2 CKD-EPI eGFR (2020). Assuming creatinine has been stable day-to-day for at least three months, the eGFR indicates Category G3b (30 - 44 mL/min/1.73 m2) Lab Interpretation (test code = 85864-5) [facility]2024-04-04 01:22:02* Test Item Value Reference Range Interpretation Comme nts POCT GLU (test code = 8895754634) 118 mg/dL 70-110 H Lab Interpretation (test cod e = 96343-8) Abnormal [facility] GLUCOSE (AUTOMATED)2024-04-04 01:22:02* Test Item Value Reference Range Interpretation Comme nts POCT GLU (test code = 5685283376) 118 mg/dL 70-110 H Lab Interpretation (test cod e = 03655-0) Abnormal [facility] GLUCOSE (AUTOMATED)2024-04-03 21:37:00* Test Item Value Reference Range Interpretation Comme nts POCT GLU (test code = 7224418978) 158 mg/dL 70-110 H Lab Interpretation (test cod e = 18869-4) Abnormal [facility] GLUCOSE (AUTOMATED)2024-04-03 21:37:00* Test Item Value Reference Range Interpretation Comme nts POCT GLU (test code = 0426911490) 158 mg/dL 70-110 H Lab Interpretation (test cod e = 10342-3) Abnormal [facility] CHEST 1 [id number] 17:17:56Study: Single view chest. Ordering Physician: SARI MONTES Date: 04/03/2024 7:00 AM History:concern for infection; actively smoking COMPARISON: 03/31/2024 Findings: Single frontal view chest demonstrates cardiomegaly. The lungsare clear without infiltrate, pleural effusion or pneumothorax. No acuteosseous abnormality is identified.[facility] CHEST 1 2024-04-03 17:17:56Study: Single view chest. Ordering Physician: SARI MONTES Date: 04/03/2024 7:00 AM History:concern for infection; actively smoking COMPARISON: 03/31/2024 Findings: Single frontal view chest demonstrates cardiomegaly. The lungsare clear without infiltrate, pleural effusion or pneumothorax. No acuteosseous abnormality is identified.[facility] GLUCOSE (AUTOMATED)2024-04-03 17:05:33* Test Item Value Reference Range Interpretation Comme nts POCT GLU (test code = 0993653832) 183 mg/dL 70-110 H Lab Interpretation (test cod e = 25357-6) Abnormal [facility] GLUCOSE (AUTOMATED)2024-04-03 17:05:33* Test Item Value Reference Range Interpretation Comme nts POCT GLU (test code = 0744111702) 183 mg/dL 70-110 H Lab Interpretation (test cod e = 77530-3) Abnormal [facility] GLUCOSE (AUTOMATED)2024-04-03 14:24:34* Test Item Value Reference Range Interpretation Comme nts POCT GLU (test code = 7812417185) 184 mg/dL 70-110 H Lab Interpretation (test cod e = 80158-3) Abnormal [facility] GLUCOSE (AUTOMATED)2024-04-03 14:24:34* Test Item Value Reference Range Interpretation Comme nts POCT GLU (test code = 6862746906) 184 mg/dL 70-110 H Lab Interpretation (test cod e = 04077-4) Abnormal [facility] GLUCOSE (AUTOMATED)2024-04-03 01:06:53* Test Item Value Reference Range Interpretation Comme nts POCT GLU (test code = 8219132074) 265 mg/dL 70-110 H Lab Interpretation (test cod e = 84243-1) Abnormal [facility] GLUCOSE (AUTOMATED)2024-04-03 01:06:53* Test Item Value Reference Range Interpretation Comme nts POCT GLU (test code = 6185526098) 265 mg/dL 70-110 H Lab Interpretation (test cod e = 20857-0) [facility] 21:18:34* Test Item Value Reference Range Interpretation Comme nts POCT GLU (test code = 4828646092) 178 mg/dL 70-110 H Lab Interpretation (test cod e = 83548-5) [facility]2024-04-02 21:18:34* Test Item Value Reference Range Interpretation Comme nts POCT GLU (test code = 5637806132) 178 mg/dL 70-110 H Lab Interpretation (test cod e = 87980-0) [facility]2024-04-02 17:06:38* Test Item Value Reference Range Interpretation Comme nts POCT GLU (test code = 5155066895) 127 mg/dL 70-110 H Lab Interpretation (test cod e = 54164-8) Abnormal [facility] GLUCOSE (AUTOMATED)2024-04-02 17:06:38* Test Item Value Reference Range Interpretation Comme nts POCT GLU (test code = 4590556058) 127 mg/dL 70-110 H Lab Interpretation (test cod e = 10880-1) Abnormal [facility] GLUCOSE (AUTOMATED)2024-04-02 17:06:33* Test Item Value Reference Range Interpretation Comme nts POCT GLU (test code = 0979409831) 135 mg/dL 70-110 H Lab Interpretation (test cod e = 23950-8) Abnormal [facility] GLUCOSE (AUTOMATED)2024-04-02 17:06:33* Test Item Value Reference Range Interpretation Comme nts POCT GLU (test code = 3699242884) 135 mg/dL 70-110 H Lab Interpretation (test cod e = 88928-5) [facility] Whole Jfcyg2631-47-49 02:07:57* Test Item Value Reference Range Interpretation Comme nts LACTIC ACID (test code = 6476943505) 1.48 mmol/L 0.50-2.20 Lab Interpretation (test cod e = 96043-8) [facility] Hegci3792-69-76 02:07:57* Test Item Value Reference Range Interpretation Comme nts LACTIC ACID (test code = 2582110953) 1.48 mmol/L 0.50-2.20 Lab Interpretation (test cod e = 05119-5) Normal [facility] GLUCOSE (AUTOMATED)2024-04-02 02:01:24* Test Item Value Reference Range Interpretation Comme nts POCT GLU (test code = 4712608671) 137 mg/dL 70-110 H Lab Interpretation (test cod e = 05378-4) Abnormal [facility] GLUCOSE (AUTOMATED)2024-04-02 02:01:24* Test Item Value Reference Range Interpretation Comme nts POCT GLU (test code = 8656189275) 137 mg/dL 70-110 H Lab Interpretation (test cod e = 46118-2) Abnormal [facility] GLUCOSE (AUTOMATED)2024-04-01 22:00:13* Test Item Value Reference Range Interpretation Comme nts POCT GLU (test code = 3382123486) 224 mg/dL 70-110 H Lab Interpretation (test cod e = 76973-5) Abnormal [facility] GLUCOSE (AUTOMATED)2024-04-01 22:00:13* Test Item Value Reference Range Interpretation Comme nts POCT GLU (test code = 8447537917) 224 mg/dL 70-110 H Lab Interpretation (test cod e = 31905-7) [facility]normal [facility] [id number] 19:42:43* Test Item Value Reference Range Interpretation Comme nts LACTIC ACID (test code = 1813565763) 2.63 mmol/L 0.50-2.20 H Lab Interpretation (test cod e = 04037-0) [facility]normal [facility] [id number] 19:42:43* Test Item Value Reference Range Interpretation Comme nts LACTIC ACID (test code = 6700627257) 2.63 mmol/L 0.50-2.20 H Lab Interpretation (test cod e = 74099-6) [facility] [id number] 19:42:43* Test Item Value Reference Range Interpretation Comme nts LACTIC ACID (test code = 5112273415) 2.63 mmol/L 0.50-2.20 H Lab Interpretation (test cod e = 38535-8) [facility]normal [facility] [id number] 16:42:14* Test Item Value Reference Range Interpretation Comme nts LACTIC ACID (test code = 7159099914) 2.57 mmol/L 0.50-2.20 H Lab Interpretation (test cod e = 93779-4) [facility] [id number] 16:42:14* Test Item Value Reference Range Interpretation Comme nts LACTIC ACID (test code = 8237216425) 2.57 mmol/L 0.50-2.20 H Lab Interpretation (test cod e = 59107-0) [facility] [id number] 16:42:14* Test Item Value Reference Range Interpretation Comme nts LACTIC ACID (test code = 9666490860) 2.57 mmol/L 0.50-2.20 H Lab Interpretation (test cod e = 43901-9) Abnormal [facility] GLUCOSE (AUTOMATED)2024-04-01 16:35:53* Test Item Value Reference Range Interpretation Comme nts POCT GLU (test code = 5040744927) 252 mg/dL 70-110 H Lab Interpretation (test cod e = 33146-1) Abnormal [facility] GLUCOSE (AUTOMATED)2024-04-01 16:35:53* Test Item Value Reference Range Interpretation Comme nts POCT GLU (test code = 2875677581) 252 mg/dL 70-110 H Lab Interpretation (test cod e = 83717-1) Abnormal [facility] GLUCOSE (AUTOMATED)2024-04-01 16:35:53* Test Item Value Reference Range Interpretation Comme nts POCT GLU (test code = 5387971033) 252 mg/dL 70-110 H Lab Interpretation (test cod e = 43436-6) Abnormal [facility] GLUCOSE (AUTOMATED)2024-04-01 14:48:27* Test Item Value Reference Range Interpretation Comme nts POCT GLU (test code = 5544771270) 156 mg/dL 70-110 H Lab Interpretation (test cod e = 06786-6) Abnormal [facility] GLUCOSE (AUTOMATED)2024-04-01 14:48:27* Test Item Value Reference Range Interpretation Comme nts POCT GLU (test code = 1215675169) 156 mg/dL 70-110 H Lab Interpretation (test cod e = 22029-2) Abnormal [facility] GLUCOSE (AUTOMATED)2024-04-01 14:48:27* Test Item Value Reference Range Interpretation Comme nts POCT GLU (test code = 3883066043) 156 mg/dL 70-110 H Lab Interpretation (test cod e = 46620-3) [facility]normal [facility] Dwbuccendhjeiyw7757-88-16 14:33:50Aborted invasive cardiology procedure -- see kiln car unloader report for details.[facility] 1 [id number] 02:52:30Exam: XR CHEST 1 VW, 03/31/2024 1:45 PM. Ordering Physician: FRANK LR. History: pna . Technique: One view of the chest. Comparison: Chest radiograph 03/23/2024. Findings: Prominent pulmonary interstitium. No focal consolidation. Less conspicuousblunting of the costophrenic angles. No pneumothorax. Cardiomegaly.[facility] [id number] 02:52:30 Exam: XR CHEST 1 , 03/31/2024 1:45 PM. Ordering Physician: FRANK LR. History: pna . Technique: One view of the chest. Comparison: Chest radiograph 03/23/2024. Findings: Prominent pulmonary interstitium. No focal consolidation. Less conspicuousblunting of the costophrenic angles. No pneu mothorax. Cardiomegaly.[facility] CHEST 1 [id number] 02:52:30Exam: XR CHEST 1 , 03/31/2024 1:45 PM. Ordering Physician: FRANK LR. History: pna . Technique: One view of the chest. Comparison: Chest radiograph 03/23/2024. Findings: Prominent pulmonary interstitium. No focal consolidation. Less conspicuousblunting of the costophrenic angles. No pneu mothorax. Cardiomegaly.[facility] GLUCOSE (AUTOMATED)2024-04-01 01:55:45* Test Item Value Reference Range Interpretation Comme nts POCT GLU (test code = 0859573323) 244 mg/dL 70-110 H Lab Interpretation (test cod e = 65754-3) Abnormal [facility] GLUCOSE (AUTOMATED)2024-04-01 01:55:45* Test Item Value Reference Range Interpretation Comme nts POCT GLU (test code = 1774744718) 244 mg/dL 70-110 H Lab Interpretation (test cod e = 99335-7) Abnormal [facility] GLUCOSE (AUTOMATED)2024-04-01 01:55:45* Test Item Value Reference Range Interpretation Comme nts POCT GLU (test code = 7733451031) 244 mg/dL 70-110 H Lab Interpretation (test cod e = 34552-1) Abnormal [facility] GLUCOSE (AUTOMATED)2024-03-31 21:40:52* Test Item Value Reference Range Interpretation Comme nts POCT GLU (test code = 7829839624) 132 mg/dL 70-110 H Lab Interpretation (test cod e = 61753-3) Abnormal [facility] GLUCOSE (AUTOMATED)2024-03-31 21:40:52* Test Item Value Reference Range Interpretation Comme nts POCT GLU (test code = 3565336417) 301 mg/dL 70-110 H Lab Interpretation (test cod e = 41057-2) Abnormal [facility] GLUCOSE (AUTOMATED)2024-03-31 21:40:52* Test Item Value Reference Range Interpretation Comme nts POCT GLU (test code = 6921546252) 132 mg/dL 70-110 H Lab Interpretation (test cod e = 95848-7) Abnormal [facility] GLUCOSE (AUTOMATED)2024-03-31 21:40:52* Test Item Value Reference Range Interpretation Comme nts POCT GLU (test code = 3616173581) 301 mg/dL 70-110 H Lab Interpretation (test cod e = 40224-9) Abnormal [facility] GLUCOSE (AUTOMATED)2024-03-31 21:40:52* Test Item Value Reference Range Interpretation Comme nts POCT GLU (test code = 7360002177) 132 mg/dL 70-110 H Lab Interpretation (test cod e = 24077-1) Abnormal [facility] GLUCOSE (AUTOMATED)2024-03-31 21:40:52* Test Item Value Reference Range Interpretation Comme nts POCT GLU (test code = 5120629833) 301 mg/dL 70-110 H Lab Interpretation (test cod e = 45233-0) Abnormal [facility] GLUCOSE (AUTOMATED)2024-03-31 21:25:16* Test Item Value Reference Range Interpretation Comme nts POCT GLU (test code = 7830667450) 481 mg/dL 70-110 HH Lab Interpretation (test cod e = 63683-5) Abnormal [facility] GLUCOSE (AUTOMATED)2024-03-31 21:25:16* Test Item Value Reference Range Interpretation Comme nts POCT GLU (test code = 7503796737) 481 mg/dL 70-110 HH Lab Interpretation (test cod e = 53731-2) Abnormal [facility] GLUCOSE (AUTOMATED)2024-03-31 21:25:16* Test Item Value Reference Range Interpretation Comme nts POCT GLU (test code = 7183527947) 481 mg/dL 70-110 HH Lab Interpretation (test cod e = 86256-6) Abnormal [facility] GLUCOSE (AUTOMATED)2024-03-31 13:25:43* Test Item Value Reference Range Interpretation Comme nts POCT GLU (test code = 5756412555) 234 mg/dL 70-110 H Lab Interpretation (test cod e = 23381-2) Abnormal [facility] GLUCOSE (AUTOMATED)2024-03-31 13:25:43* Test Item Value Reference Range Interpretation Comme nts POCT GLU (test code = 2049276553) 234 mg/dL 70-110 H Lab Interpretation (test cod e = 63794-0) Abnormal [facility] GLUCOSE (AUTOMATED)2024-03-31 13:25:43* Test Item Value Reference Range Interpretation Comme nts POCT GLU (test code = 9997801134) 234 mg/dL 70-110 H Lab Interpretation (test cod e = 05487-8) Abnormal [facility] GLUCOSE (AUTOMATED)2024-03-31 05:58:37* Test Item Value Reference Range Interpretation Comme nts POCT GLU (test code = 3510279211) 160 mg/dL 70-110 H Lab Interpretation (test cod e = 64398-8) Abnormal [facility] GLUCOSE (AUTOMATED)2024-03-31 05:58:37* Test Item Value Reference Range Interpretation Comme nts POCT GLU (test code = 2155894957) 160 mg/dL 70-110 H Lab Interpretation (test cod e = 08278-6) Abnormal [facility] GLUCOSE (AUTOMATED)2024-03-31 05:58:37* Test Item Value Reference Range Interpretation Comme nts POCT GLU (test code = 8423783103) 160 mg/dL 70-110 H Lab Interpretation (test cod e = 88896-7) Abnormal [facility] GLUCOSE (AUTOMATED)2024-03-31 03:19:17* Test Item Value Reference Range Interpretation Comme nts POCT GLU (test code = 3795377564) 417 mg/dL 70-110 H Lab Interpretation (test cod e = 13926-3) Abnormal [facility] GLUCOSE (AUTOMATED)2024-03-31 03:19:17* Test Item Value Reference Range Interpretation Comme nts POCT GLU (test code = 4946809349) 417 mg/dL 70-110 H Lab Interpretation (test cod e = 83569-6) Abnormal [facility] GLUCOSE (AUTOMATED)2024-03-31 03:19:17* Test Item Value Reference Range Interpretation Comme nts POCT GLU (test code = 6311137723) 417 mg/dL 70-110 H Lab Interpretation (test cod e = 02429-9) Abnormal [facility] GLUCOSE (AUTOMATED)2024-03-30 21:37:50* Test Item Value Reference Range Interpretation Comme nts POCT GLU (test code = 1291636760) 241 mg/dL 70-110 H Lab Interpretation (test cod e = 54932-4) Abnormal [facility] GLUCOSE (AUTOMATED)2024-03-30 21:37:50* Test Item Value Reference Range Interpretation Comme nts POCT GLU (test code = 9119713971) 241 mg/dL 70-110 H Lab Interpretation (test cod e = 69137-0) Abnormal [facility] GLUCOSE (AUTOMATED)2024-03-30 21:37:50* Test Item Value Reference Range Interpretation Comme nts POCT GLU (test code = 6999048040) 241 mg/dL 70-110 H Lab Interpretation (test cod e = 26146-7) Abnormal [facility] GLUCOSE (AUTOMATED)2024-03-30 18:03:10* Test Item Value Reference Range Interpretation Comme nts POCT GLU (test code = 8105812221) 290 mg/dL 70-110 H Lab Interpretation (test cod e = 78329-3) Abnormal [facility] GLUCOSE (AUTOMATED)2024-03-30 18:03:10* Test Item Value Reference Range Interpretation Comme nts POCT GLU (test code = 3259512988) 290 mg/dL 70-110 H Lab Interpretation (test cod e = 25195-8) Abnormal [facility] GLUCOSE (AUTOMATED)2024-03-30 18:03:10* Test Item Value Reference Range Interpretation Comme nts POCT GLU (test code = 6203696603) 290 mg/dL 70-110 H Lab Interpretation (test cod e = 09405-1) Abnormal [facility] GLUCOSE (AUTOMATED)2024-03-30 13:10:20* Test Item Value Reference Range Interpretation Comme nts POCT GLU (test code = 9920882249) 205 mg/dL 70-110 H Lab Interpretation (test cod e = 32036-5) Abnormal [facility] GLUCOSE (AUTOMATED)2024-03-30 13:10:20* Test Item Value Reference Range Interpretation Comme nts POCT GLU (test code = 2413535969) 205 mg/dL 70-110 H Lab Interpretation (test cod e = 43933-7) Abnormal [facility] GLUCOSE (AUTOMATED)2024-03-30 13:10:20* Test Item Value Reference Range Interpretation Comme nts POCT GLU (test code = 1771466185) 205 mg/dL 70-110 H Lab Interpretation (test cod e = 12107-2) Abnormal [facility] GLUCOSE (AUTOMATED)2024-03-30 02:38:15* Test Item Value Reference Range Interpretation Comme nts POCT GLU (test code = 2377143767) 201 mg/dL 70-110 H Lab Interpretation (test cod e = 12274-8) Abnormal [facility] GLUCOSE (AUTOMATED)2024-03-30 02:38:15* Test Item Value Reference Range Interpretation Comme nts POCT GLU (test code = 2168492002) 201 mg/dL 70-110 H Lab Interpretation (test cod e = 73019-7) Abnormal [facility] GLUCOSE (AUTOMATED)2024-03-30 02:38:15* Test Item Value Reference Range Interpretation Comme nts POCT GLU (test code = 5622890941) 201 mg/dL 70-110 H Lab Interpretation (test cod e = 62464-6) Abnormal [facility] GLUCOSE (AUTOMATED)2024-03-29 23:11:20* Test Item Value Reference Range Interpretation Comme nts POCT GLU (test code = 3555148005) 238 mg/dL 70-110 H Lab Interpretation (test cod e = 88509-9) Abnormal [facility] GLUCOSE (AUTOMATED)2024-03-29 23:11:20* Test Item Value Reference Range Interpretation Comme nts POCT GLU (test code = 4831611416) 238 mg/dL 70-110 H Lab Interpretation (test cod e = 05153-4) Abnormal [facility] GLUCOSE (AUTOMATED)2024-03-29 23:11:20* Test Item Value Reference Range Interpretation Comme nts POCT GLU (test code = 9095580989) 238 mg/dL 70-110 H Lab Interpretation (test cod e = 04489-8) Abnormal [facility] GLUCOSE (AUTOMATED)2024-03-29 12:40:02* Test Item Value Reference Range Interpretation Comme nts POCT GLU (test code = 6029012706) 147 mg/dL 70-110 H Lab Interpretation (test cod e = 49064-8) Abnormal [facility] GLUCOSE (AUTOMATED)2024-03-29 12:40:02* Test Item Value Reference Range Interpretation Comme nts POCT GLU (test code = 1669462249) 147 mg/dL 70-110 H Lab Interpretation (test cod e = 57717-8) Abnormal [facility] GLUCOSE (AUTOMATED)2024-03-29 12:40:02* Test Item Value Reference Range Interpretation Comme nts POCT GLU (test code = 0562878308) 147 mg/dL 70-110 H Lab Interpretation (test cod e = 35153-5) Abnormal [facility] GLUCOSE (AUTOMATED)2024-03-29 03:09:53* Test Item Value Reference Range Interpretation Comme nts POCT GLU (test code = 3700802170) 184 mg/dL 70-110 H Lab Interpretation (test cod e = 80059-4) [facility] 03:09:53* Test Item Value Reference Range Interpretation Comme nts POCT GLU (test code = 0082670999) 184 mg/dL 70-110 H Lab Interpretation (test cod e = 88164-2) [facility]29 03:09:53* Test Item Value Reference Range Interpretation Comme nts POCT GLU (test code = 7845130498) 184 mg/dL 70-110 H Lab Interpretation (test cod e = 53965-0) [facility]-29 02:58:09* Test Item Value Reference Range Interpretation Comme nts POCT GLU (test code = 1601462841) 176 mg/dL 70-110 H Lab Interpretation (test cod e = 72497-0) Abnormal [facility] GLUCOSE (AUTOMATED)2024-03-29 02:58:09* Test Item Value Reference Range Interpretation Comme nts POCT GLU (test code = 4297844152) 176 mg/dL 70-110 H Lab Interpretation (test cod e = 28013-7) Abnormal [facility] GLUCOSE (AUTOMATED)2024-03-29 02:58:09* Test Item Value Reference Range Interpretation Comme nts POCT GLU (test code = 2519994490) 176 mg/dL 70-110 H Lab Interpretation (test cod e = 66579-4) Abnormal [facility] GLUCOSE (AUTOMATED)2024-03-28 21:32:57* Test Item Value Reference Range Interpretation Comme nts POCT GLU (test code = 8124207707) 199 mg/dL 70-110 H Lab Interpretation (test cod e = 23364-8) Abnormal [facility] GLUCOSE (AUTOMATED)2024-03-28 21:32:57* Test Item Value Reference Range Interpretation Comme nts POCT GLU (test code = 9717716990) 199 mg/dL 70-110 H Lab Interpretation (test cod e = 16091-0) Abnormal [facility] GLUCOSE (AUTOMATED)2024-03-28 21:32:57* Test Item Value Reference Range Interpretation Comme nts POCT GLU (test code = 8072059495) 199 mg/dL 70-110 H Lab Interpretation (test cod e = 51302-9) Abnormal [facility] GLUCOSE (AUTOMATED)2024-03-28 16:18:58* Test Item Value Reference Range Interpretation Comme nts POCT GLU (test code = 3986245648) 216 mg/dL 70-110 H Lab Interpretation (test cod e = 29914-4) Abnormal [facility] GLUCOSE (AUTOMATED)2024-03-28 16:18:58* Test Item Value Reference Range Interpretation Comme nts POCT GLU (test code = 2994973825) 216 mg/dL 70-110 H Lab Interpretation (test cod e = 54508-9) Abnormal [facility] GLUCOSE (AUTOMATED)2024-03-28 16:18:58* Test Item Value Reference Range Interpretation Comme nts POCT GLU (test code = 6782443994) 216 mg/dL 70-110 H Lab Interpretation (test cod e = 92455-3) Abnormal [facility] GLUCOSE (AUTOMATED)2024-03-28 13:38:38* Test Item Value Reference Range Interpretation Comme nts POCT GLU (test code = 5431479141) 254 mg/dL 70-110 H Lab Interpretation (test cod e = 24503-9) Abnormal [facility] GLUCOSE (AUTOMATED)2024-03-28 13:38:38* Test Item Value Reference Range Interpretation Comme nts POCT GLU (test code = 4003513228) 254 mg/dL 70-110 H Lab Interpretation (test cod e = 37984-9) Abnormal [facility] GLUCOSE (AUTOMATED)2024-03-28 13:38:38* Test Item Value Reference Range Interpretation Comme nts POCT GLU (test code = 4911894587) 254 mg/dL 70-110 H Lab Interpretation (test cod e = 69256-5) Abnormal [facility] GLUCOSE (AUTOMATED)2024-03-28 01:08:04* Test Item Value Reference Range Interpretation Comme nts POCT GLU (test code = 5272043117) 185 mg/dL 70-110 H Lab Interpretation (test cod e = 64298-2) Abnormal [facility] GLUCOSE (AUTOMATED)2024-03-28 01:08:04* Test Item Value Reference Range Interpretation Comme nts POCT GLU (test code = 4226358647) 185 mg/dL 70-110 H Lab Interpretation (test cod e = 27933-9) Abnormal [facility] GLUCOSE (AUTOMATED)2024-03-28 01:08:04* Test Item Value Reference Range Interpretation Comme nts POCT GLU (test code = 9312053374) 185 mg/dL 70-110 H Lab Interpretation (test cod e = 49615-3) Abnormal [facility] GLUCOSE (AUTOMATED)2024-03-27 21:46:43* Test Item Value Reference Range Interpretation Comme nts POCT GLU (test code = 0277436355) 209 mg/dL 70-110 H Lab Interpretation (test cod e = 95296-4) Abnormal [facility] GLUCOSE (AUTOMATED)2024-03-27 21:46:43* Test Item Value Reference Range Interpretation Comme nts POCT GLU (test code = 5280254701) 209 mg/dL 70-110 H Lab Interpretation (test cod e = 39659-2) Abnormal [facility] GLUCOSE (AUTOMATED)2024-03-27 21:46:43* Test Item Value Reference Range Interpretation Comme nts POCT GLU (test code = 7025906407) 209 mg/dL 70-110 H Lab Interpretation (test cod e = 32387-9) Abnormal [facility] GLUCOSE (AUTOMATED)2024-03-27 17:46:23* Test Item Value Reference Range Interpretation Comme nts POCT GLU (test code = 8519425276) 211 mg/dL 70-110 H Notified Provide r Lab Interpretation (test code = 96746-4) Abnormal [facility] GLUCOSE (AUTOMATED)2024-03-27 17:46:23* Test Item Value Reference Range Interpretation Comme nts POCT GLU (test code = 1268748120) 211 mg/dL 70-110 H Notified Provide r Lab Interpretation (test code = 80655-3) Abnormal [facility] GLUCOSE (AUTOMATED)2024-03-27 17:46:23* Test Item Value Reference Range Interpretation Comme nts POCT GLU (test code = 0410702912) 211 mg/dL 70-110 H Notified Provide r Lab Interpretation (test code = 29800-2) Abnormal [facility] LOWER EXTREMITY VEIN WITH COMPRESSION BILATERAL (ONLY FOR RULE OUT DVT)2024-03-27 16:24:25EXAM: DOPPLER ULTRASOUND OF THE BILATERAL LOWER EXTREMITIES HISTORY: 58-year-old male. DVT rule out. FINDINGS: Very limited study due to body habitus and lower extremity edema. Within the limitations, the common femoral, proximal, middle, and distalfemoral veins, greater saphenous vein, profunda femoris, popliteal,peroneal, posterior tibialis and anterior tibialis veins showedcompressibility, andaugmentation. [facility] LOWER EXTREMITY VEIN WITH COMPRESSION BILATERAL (ONLY FOR RULE OUT DVT)2024-03-27 16:24:25EXAM: DOPPLER ULTRASOUND OF THE BILATERAL LOWER EXTREMITIES HISTORY: 58-year-old male. DVT rule out. FINDINGS: Very limited study due to body habitus and lower extremity edema. Within the limitations, the common femoral, proximal, middle, and distalfemoral veins, greater saphenous vein, profunda femoris, popliteal,peroneal, posterior tibialis and anterior tibialis veins showedcompressibility, andaugmentation. [facility] LOWER EXTREMITY VEIN WITH COMPRESSION BILATERAL (ONLY FOR RULE OUT DVT)2024-03-27 16:24:25EXAM: DOPPLER ULTRASOUND OF THE BILATERAL LOWER EXTREMITIES HISTORY: 58-year-old male. DVT rule out. FINDINGS: Very limited study due to body habitus and lower extremity edema. Within the limitations, the common femoral, proximal, middle, and distalfemoral veins, greater saphenous vein, profunda femoris, popliteal,peroneal, posterior tibialis and anterior tibialis veins showedcompressibility, andaugmentation. [facility] LOWER EXTREMITY VEIN WITH COMPRESSION BILATERAL (ONLY FOR RULE OUT DVT)2024-03-27 16:24:25EXAM: DOPPLER ULTRASOUND OF THE BILATERAL LOWER EXTREMITIES HISTORY: 58-year-old male. DVT rule out. FINDINGS: Very limited study due to body habitus and lower extremity edema. Within the limitations, the common femoral, proximal, middle, and distalfemoral veins, greater saphenous vein, profunda femoris, popliteal,peroneal, posterior tibialis and anterior tibialis veins showedcompressibility, andaugmentation. [facility] GLUCOSE (AUTOMATED)2024-03-27 13:14:45* Test Item Value Reference Range Interpretation Comme nts POCT GLU (test code = 5121159628) 227 mg/dL 70-110 H Lab Interpretation (test cod e = 75689-3) Abnormal [facility] GLUCOSE (AUTOMATED)2024-03-27 13:14:45* Test Item Value Reference Range Interpretation Comme nts POCT GLU (test code = 6328698931) 227 mg/dL 70-110 H Lab Interpretation (test cod e = 08785-9) Abnormal [facility] GLUCOSE (AUTOMATED)2024-03-27 13:14:45* Test Item Value Reference Range Interpretation Comme nts POCT GLU (test code = 3162472548) 227 mg/dL 70-110 H Lab Interpretation (test cod e = 51017-4) Abnormal [facility] GLUCOSE (AUTOMATED)2024-03-27 00:59:39* Test Item Value Reference Range Interpretation Comme nts POCT GLU (test code = 0287053268) 159 mg/dL 70-110 H Lab Interpretation (test cod e = 81282-7) Abnormal [facility] GLUCOSE (AUTOMATED)2024-03-27 00:59:39* Test Item Value Reference Range Interpretation Comme nts POCT GLU (test code = 7311430262) 159 mg/dL 70-110 H Lab Interpretation (test cod e = 91242-6) Abnormal [facility] GLUCOSE (AUTOMATED)2024-03-27 00:59:39* Test Item Value Reference Range Interpretation Comme nts POCT GLU (test code = 4125478813) 159 mg/dL 70-110 H Lab Interpretation (test cod e = 66900-6) Abnormal [facility] GLUCOSE (AUTOMATED)2024-03-26 21:17:27* Test Item Value Reference Range Interpretation Comme nts POCT GLU (test code = 2996035968) 161 mg/dL 70-110 H Lab Interpretation (test cod e = 84620-2) Abnormal [facility] GLUCOSE (AUTOMATED)2024-03-26 21:17:27* Test Item Value Reference Range Interpretation Comme nts POCT GLU (test code = 7450434049) 161 mg/dL 70-110 H Lab Interpretation (test cod e = 98058-4) Abnormal [facility] GLUCOSE (AUTOMATED)2024-03-26 21:17:27* Test Item Value Reference Range Interpretation Comme nts POCT GLU (test code = 3881448233) 161 mg/dL 70-110 H Lab Interpretation (test cod e = 70482-2) [facility] Pdfoa3081-34-44 19:31:46* Test Item Value Reference Range Interpretation Comme nts FERRITIN (test code = 6383737819) 20.0 ng/mL 18.0-464.0 ALCIDES (test code = ALCIDES) Biotin has been reported to cause a negative bias, interpret results relative to patient's use of biotin. Lab Interpretation (test code = 87217-2) Normal [facility] Thwue0009-76-09 19:31:46* Test Item Value Reference Range Interpretation Comme nts FERRITIN (test code = 9936934239) 20.0 ng/mL 18.0-464.0 ALCIDES (test code = ALCIDES) Biotin has been reported to cause a negative bias, interpret results relative to patient's use of biotin. Lab Interpretation (test code = 81763-7) [facility] Klwgn3178-98-73 19:31:46* Test Item Value Reference Range Interpretation Comme nts FERRITIN (test code = 0885516882) 20.0 ng/mL 18.0-464.0 ALCIDES (test code = ALCIDES) Biotin has been reported to cause a negative bias, interpret results relative to patient's use of biotin. Lab Interpretation (test code = 74954-5) Normal [facility] Eoxlq8060-78-90 19:31:46* Test Item Value Reference Range Interpretation Comme nts FERRITIN (test code = 5772013186) 20.0 ng/mL 18.0-464.0 ALCIDES (test code = ALCIDES) Biotin has been reported to cause a negative bias, interpret results relative to patient's use of biotin. Lab Interpretation (test code = 64985-8) Normal [facility] Ennnc9474-64-10 19:11:20* Test Item Value Reference Range Interpretation Comme nts IRON (test code = 5603537783) 32 ug/dL 50-160 L TIBC (test code = 6225498986) 349 ug/dL 250-410 % FE SAT (test code = 5533806056) 9 % 20-50 L Lab Interpretation (test cod e = 53713-3) Abnormal [facility]2024-05-01 19:11:20* Test Item Value Reference Range Interpretation Comme nts IRON (test code = 1290572056) 32 ug/dL 50-160 L TIBC (test code = 1619781041) 349 ug/dL 250-410 % FE SAT (test code = 8993226200) 9 % 20-50 L Lab Interpretation (test cod e = 80523-4) Abnormal [facility] Ywctf6698-31-26 19:11:20* Test Item Value Reference Range Interpretation Comme nts IRON (test code = 7542607102) 32 ug/dL 50-160 L TIBC (test code = 1234321096) 349 ug/dL 250-410 % FE SAT (test code = 2845556522) 9 % 20-50 L Lab Interpretation (test cod e = 41105-5) Abnormal [facility]2024-05-01 19:11:20* Test Item Value Reference Range Interpretation Comme nts IRON (test code = 7530852679) 32 ug/dL 50-160 L TIBC (test code = 6426146864) 349 ug/dL 250-410 % FE SAT (test code = 1938764504) 9 % 20-50 L Lab Interpretation (test cod e = 56840-6) Abnormal [facility] Metabolic Panel (NA, K, CL, CO2, GLUCOSE, BUN, CREATININE, CA)2024-03-26 18:41:17* Test Item Value Reference Range Interpretation Comme nts NA (test code = 1104782821) 131 mmol/L 135-145 L K (test code = 1477077366) 3.3 mmol/L 3.5-5.0 L CL (test code = 1863639885) 95 mmol/L 98-108 L CO2 TOTAL (test code = 4816491866) 32 mmol/L 23-31 H AGAP (test code = 7284912062) 4 2-16 BUN (test code = 5384667470) 30 mg/dL 7-23 H GLUCOSE (test code = 0324925235) 171 mg/dL 70-110 H CREATININE (test code = 2160-0) 1.53 mg/dL 0.60-1.25 H CALCIUM (test code = 7372339862) 7.2 mg/dL 8.6-10.6 L eGFR (test code = 61331-0) 52.7 mL/min/1.73m2 CKD-EPI eGFR (2020). Assuming creatinine has been stable day-to-day for at least three months, the eGFR indicates Category G3a (45 - 59 mL/min/1.73 m2) Lab Interpretation (test code = 83531-5) Abnormal [facility] Metabolic Panel (NA, K, CL, CO2, GLUCOSE, BUN, CREATININE, CA)2024-03-26 18:41:17* Test Item Value Reference Range Interpretation Comme nts NA (test code = 4077214661) 131 mmol/L 135-145 L K (test code = 3979616123) 3.3 mmol/L 3.5-5.0 L CL (test code = 2222123734) 95 mmol/L 98-108 L CO2 TOTAL (test code = 0437176648) 32 mmol/L 23-31 H AGAP (test code = 2161821308) 4 2-16 BUN (test code = 9510672103) 30 mg/dL 7-23 H GLUCOSE (test code = 6171410887) 171 mg/dL 70-110 H CREATININE (test code = 2160-0) 1.53 mg/dL 0.60-1.25 H CALCIUM (test code = 6982325877) 7.2 mg/dL 8.6-10.6 L eGFR (test code = 14280-3) 52.7 mL/min/1.73m2 CKD-EPI eGFR (2020). Assuming creatinine has been stable day-to-day for at least three months, the eGFR indicates Category G3a (45 - 59 mL/min/1.73 m2) Lab Interpretation (test code = 88840-0) Abnormal [facility] Metabolic Panel (NA, K, CL, CO2, GLUCOSE, BUN, CREATININE, CA)2024-03-26 18:41:17* Test Item Value Reference Range Interpretation Comme nts NA (test code = 1682235355) 131 mmol/L 135-145 L K (test code = 7406238152) 3.3 mmol/L 3.5-5.0 L CL (test code = 5388511003) 95 mmol/L 98-108 L CO2 TOTAL (test code = 7039222064) 32 mmol/L 23-31 H AGAP (test code = 1894375222) 4 2-16 BUN (test code = 0435041378) 30 mg/dL 7-23 H GLUCOSE (test code = 8959998458) 171 mg/dL 70-110 H CREATININE (test code = 2160-0) 1.53 mg/dL 0.60-1.25 H CALCIUM (test code = 5890613320) 7.2 mg/dL 8.6-10.6 L eGFR (test code = 46293-2) 52.7 mL/min/1.73m2 CKD-EPI eGFR (2020). Assuming creatinine has been stable day-to-day for at least three months, the eGFR indicates Category G3a (45 - 59 mL/min/1.73 m2) Lab Interpretation (test code = 65022-2) [facility] Oluko3383-55-18 18:04:21* Test Item Value Reference Range Interpretation Comme nts LACTIC ACID (test code = 2753624608) 1.61 mmol/L 0.50-2.20 Lab Interpretation (test cod e = 34396-6) Normal [facility] Acid Whole Hussc3329-82-67 18:04:21* Test Item Value Reference Range Interpretation Comme nts LACTIC ACID (test code = 3887459909) 1.61 mmol/L 0.50-2.20 Lab Interpretation (test cod e = 37049-2) Normal [facility] Acid Whole Hnmyw0130-94-54 18:04:21* Test Item Value Reference Range Interpretation Comme nts LACTIC ACID (test code = 9000545082) 1.61 mmol/L 0.50-2.20 Lab Interpretation (test cod e = 31207-4) Normal [facility] GLUCOSE (AUTOMATED)2024-03-26 18:03:07* Test Item Value Reference Range Interpretation Comme nts POCT GLU (test code = 9768081650) 181 mg/dL 70-110 H Lab Interpretation (test cod e = 99153-6) Abnormal [facility] GLUCOSE (AUTOMATED)2024-03-26 18:03:07* Test Item Value Reference Range Interpretation Comme nts POCT GLU (test code = 7505239498) 181 mg/dL 70-110 H Lab Interpretation (test cod e = 93267-7) Abnormal [facility] GLUCOSE (AUTOMATED)2024-03-26 18:03:07* Test Item Value Reference Range Interpretation Comme nts POCT GLU (test code = 2335807136) 181 mg/dL 70-110 H Lab Interpretation (test cod e = 76592-6) Abnormal [facility] GLUCOSE (AUTOMATED)2024-03-26 13:05:13* Test Item Value Reference Range Interpretation Comme nts POCT GLU (test code = 4860414877) 193 mg/dL 70-110 H Lab Interpretation (test cod e = 84813-3) Abnormal [facility] GLUCOSE (AUTOMATED)2024-03-26 13:05:13* Test Item Value Reference Range Interpretation Comme nts POCT GLU (test code = 5268794039) 193 mg/dL 70-110 H Lab Interpretation (test cod e = 37621-3) [facility]2024-03-26 13:05:13* Test Item Value Reference Range Interpretation Comme nts POCT GLU (test code = 7249929730) 193 mg/dL 70-110 H Lab Interpretation (test cod e = 61020-5) Abnormal [facility] Metabolic Panel (NA, K, CL, CO2, GLUCOSE, BUN, CREATININE, CA)2024-03-26 11:38:29* Test Item Value Reference Range Interpretation Comme nts NA (test code = 4336375827) 136 mmol/L 135-145 K (test code = 8350947394) 4.1 mmol/L 3.5-5.0 CL (test code = 6291293715) 93 mmol/L 98-108 L CO2 TOTAL (test code = 4565604319) 33 mmol/L 23-31 H AGAP (test code = 5644099847) 10 2-16 BUN (test code = 3444492315) 34 mg/dL 7-23 H GLUCOSE (test code = 9327262242) 163 mg/dL 70-110 H CREATININE (test code = 2160-0) 1.79 mg/dL 0.60-1.25 H CALCIUM (test code = 9845460925) 8.3 mg/dL 8.6-10.6 L eGFR (test code = 92082-7) 43.7 mL/min/1.73m2 CKD-EPI eGFR (2020). Assuming creatinine has been stable day-to-day for at least three months, the eGFR indicates Category G3b (30 - 44 mL/min/1.73 m2) Lab Interpretation (test code = 14328-7) Abnormal [facility] Metabolic Panel (NA, K, CL, CO2, GLUCOSE, BUN, CREATININE, CA)2024-03-26 11:38:29* Test Item Value Reference Range Interpretation Comme nts NA (test code = 8143520453) 136 mmol/L 135-145 K (test code = 2955754927) 4.1 mmol/L 3.5-5.0 CL (test code = 4264288071) 93 mmol/L 98-108 L CO2 TOTAL (test code = 2733486665) 33 mmol/L 23-31 H AGAP (test code = 0337293615) 10 2-16 BUN (test code = 7254655684) 34 mg/dL 7-23 H GLUCOSE (test code = 8527865458) 163 mg/dL 70-110 H CREATININE (test code = 2160-0) 1.79 mg/dL 0.60-1.25 H CALCIUM (test code = 9173504271) 8.3 mg/dL 8.6-10.6 L eGFR (test code = 13795-6) 43.7 mL/min/1.73m2 CKD-EPI eGFR (2020). Assuming creatinine has been stable day-to-day for at least three months, the eGFR indicates Category G3b (30 - 44 mL/min/1.73 m2) Lab Interpretation (test code = 14524-4) Abnormal [facility] Metabolic Panel (NA, K, CL, CO2, GLUCOSE, BUN, CREATININE, CA)2024-03-26 11:38:29* Test Item Value Reference Range Interpretation Comme nts NA (test code = 3111362563) 136 mmol/L 135-145 K (test code = 1875088364) 4.1 mmol/L 3.5-5.0 CL (test code = 5658769711) 93 mmol/L 98-108 L CO2 TOTAL (test code = 8004539487) 33 mmol/L 23-31 H AGAP (test code = 6779247776) 10 2-16 BUN (test code = 2534545408) 34 mg/dL 7-23 H GLUCOSE (test code = 4747100384) 163 mg/dL 70-110 H CREATININE (test code = 2160-0) 1.79 mg/dL 0.60-1.25 H CALCIUM (test code = 7396115967) 8.3 mg/dL 8.6-10.6 L eGFR (test code = 11250-4) 43.7 mL/min/1.73m2 CKD-EPI eGFR (2020). Assuming creatinine has been stable day-to-day for at least three months, the eGFR indicates Category G3b (30 - 44 mL/min/1.73 m2) Lab Interpretation (test code = 13059-7) [facility] Boenh2222-56-69 11:19:26* Test Item Value Reference Range Interpretation Comme nts LACTIC ACID (test code = 5424702936) 1.82 mmol/L 0.50-2.20 Lab Interpretation (test cod e = 56079-5) Normal [facility] Ortrm4251-29-30 11:19:26* Test Item Value Reference Range Interpretation Comme nts LACTIC ACID (test code = 5134167775) 1.82 mmol/L 0.50-2.20 Lab Interpretation (test cod e = 30890-4) [facility] Ggcuo0370-41-61 11:19:26* Test Item Value Reference Range Interpretation Comme nts LACTIC ACID (test code = 6996921722) 1.82 mmol/L 0.50-2.20 Lab Interpretation (test cod e = 57027-4) Normal [facility] with Vyct6193-85-52 10:34:59* Test Item Value Reference Range Interpretation Comme nts WBC (test code = 6690-2) 9.03 4.20-10.70 RBC (test code = 789-8) 5.18 4.26-5.52 HGB (test code = 718-7) 11.8 g/dL 12.2-16.4 L HCT (test code = 4544-3) 40.3 % 38.4-49.3 MCV (test code = 787-2) 77.8 fL 81.7-95.6 L MCH (test code = 785-6) 22.8 pg 26.1-32.7 L MCHC (test code = 786-4) 29.3 g/dL 31.2-35.0 L RDW-SD (test code = 38918-1) 54.1 fL 38.5-51.6 H RDW-CV (test code = 788-0) 19.9 % 12.1-15.4 H PLT (test code = 777-3) 256 150-328 MPV (test code = 08926-1) 10.1 fL 9.8-13.0 NRBC/100 WBC (test code = 2170521262) 0.0 0.0-10.0 NRBC x10^3 (test code = 3335143891) See_Comment [Automated messa ge] The system which generated this result transmitted reference range: 10*3/?L. The reference range was not used to interpret this result as normal/abnormal. GRAN MAT (NEUT) % (test code = 770-8) 82.0 % IMM GRAN % (test code = 3221110650) 0.60 % LYMPH % (test code = 736-9) 7.8 % MONO % (test code = 5905-5) 8.3 % EOS % (test code = 713-8) 1.1 % BASO % (test code = 706-2) 0.2 % GRAN MAT x10^3(ANC) (test code = 0333391399) 7.41 10*3/uL 1.99-6.95 H IMM GRAN x10^3 (test code = 5339060202) 0.05 10*3/uL 0.00-0.06 LYMPH x10^3 (test code = 731-0) 0.70 10*3/uL 1.09-3.23 L MONO x10^3 (test code = 742-7) 0.75 10*3/uL 0.36-1.02 EOS x10^3 (test code = 711-2) 0.10 10*3/uL 0.06-0.53 BASO x10^3 (test code = 704-7) 0.01-0.09 Lab Interpretation (test code = 08010-0) Abnormal [facility] with Xhfq6005-79-29 10:34:59* Test Item Value Reference Range Interpretation Comme nts WBC (test code = 6690-2) 9.03 4.20-10.70 RBC (test code = 789-8) 5.18 4.26-5.52 HGB (test code = 718-7) 11.8 g/dL 12.2-16.4 L HCT (test code = 4544-3) 40.3 % 38.4-49.3 MCV (test code = 787-2) 77.8 fL 81.7-95.6 L MCH (test code = 785-6) 22.8 pg 26.1-32.7 L MCHC (test code = 786-4) 29.3 g/dL 31.2-35.0 L RDW-SD (test code = 18936-1) 54.1 fL 38.5-51.6 H RDW-CV (test code = 788-0) 19.9 % 12.1-15.4 H PLT (test code = 777-3) 256 150-328 MPV (test code = 02270-4) 10.1 fL 9.8-13.0 NRBC/100 WBC (test code = 6114968996) 0.0 0.0-10.0 NRBC x10^3 (test code = 2799841843) See_Comment [Automated messa ge] The system which generated this result transmitted reference range: 10*3/?L. The reference range was not used to interpret this result as normal/abnormal. GRAN MAT (NEUT) % (test code = 770-8) 82.0 % IMM GRAN % (test code = 7305145855) 0.60 % LYMPH % (test code = 736-9) 7.8 % MONO % (test code = 5905-5) 8.3 % EOS % (test code = 713-8) 1.1 % BASO % (test code = 706-2) 0.2 % GRAN MAT x10^3(ANC) (test code = 5090284234) 7.41 10*3/uL 1.99-6.95 H IMM GRAN x10^3 (test code = 5234934168) 0.05 10*3/uL 0.00-0.06 LYMPH x10^3 (test code = 731-0) 0.70 10*3/uL 1.09-3.23 L MONO x10^3 (test code = 742-7) 0.75 10*3/uL 0.36-1.02 EOS x10^3 (test code = 711-2) 0.10 10*3/uL 0.06-0.53 BASO x10^3 (test code = 704-7) 0.01-0.09 Lab Interpretation (test code = 55979-9) Abnormal [facility] with Ofui4490-65-97 10:34:59* Test Item Value Reference Range Interpretation Comme nts WBC (test code = 6690-2) 9.03 4.20-10.70 RBC (test code = 789-8) 5.18 4.26-5.52 HGB (test code = 718-7) 11.8 g/dL 12.2-16.4 L HCT (test code = 4544-3) 40.3 % 38.4-49.3 MCV (test code = 787-2) 77.8 fL 81.7-95.6 L MCH (test code = 785-6) 22.8 pg 26.1-32.7 L MCHC (test code = 786-4) 29.3 g/dL 31.2-35.0 L RDW-SD (test code = 78192-3) 54.1 fL 38.5-51.6 H RDW-CV (test code = 788-0) 19.9 % 12.1-15.4 H PLT (test code = 777-3) 256 150-328 MPV (test code = 13938-8) 10.1 fL 9.8-13.0 NRBC/100 WBC (test code = 0207090023) 0.0 0.0-10.0 NRBC x10^3 (test code = 1771678725) See_Comment [Automated messa ge] The system which generated this result transmitted reference range: 10*3/?L. The reference range was not used to interpret this result as normal/abnormal. GRAN MAT (NEUT) % (test code = 770-8) 82.0 % IMM GRAN % (test code = 9921207986) 0.60 % LYMPH % (test code = 736-9) 7.8 % MONO % (test code = 5905-5) 8.3 % EOS % (test code = 713-8) 1.1 % BASO % (test code = 706-2) 0.2 % GRAN MAT x10^3(ANC) (test code = 8668782405) 7.41 10*3/uL 1.99-6.95 H IMM GRAN x10^3 (test code = 2083416608) 0.05 10*3/uL 0.00-0.06 LYMPH x10^3 (test code = 731-0) 0.70 10*3/uL 1.09-3.23 L MONO x10^3 (test code = 742-7) 0.75 10*3/uL 0.36-1.02 EOS x10^3 (test code = 711-2) 0.10 10*3/uL 0.06-0.53 BASO x10^3 (test code = 704-7) 0.01-0.09 Lab Interpretation (test code = 88209-1) Abnormal [facility] GLUCOSE (AUTOMATED)2024-03-26 05:29:38* Test Item Value Reference Range Interpretation Comme nts POCT GLU (test code = 2092657997) 193 mg/dL 70-110 H Lab Interpretation (test cod e = 90956-9) Abnormal [facility] GLUCOSE (AUTOMATED)2024-03-26 05:29:38* Test Item Value Reference Range Interpretation Comme nts POCT GLU (test code = 7251340794) 193 mg/dL 70-110 H Lab Interpretation (test cod e = 33147-3) Abnormal [facility] GLUCOSE (AUTOMATED)2024-03-26 05:29:38* Test Item Value Reference Range Interpretation Comme nts POCT GLU (test code = 9062343071) 193 mg/dL 70-110 H Lab Interpretation (test cod e = 09724-8) Abnormal [facility] Metabolic Panel (NA, K, CL, CO2, GLUCOSE, BUN, CREATININE, CA)2024-03-26 03:02:27* Test Item Value Reference Range Interpretation Comme nts NA (test code = 7568181132) 132 mmol/L 135-145 L K (test code = 2149801095) 4.1 mmol/L 3.5-5.0 CL (test code = 9453134074) 93 mmol/L 98-108 L CO2 TOTAL (test code = 0334436311) 36 mmol/L 23-31 H AGAP (test code = 2464695578) 3 2-16 BUN (test code = 8632735439) 34 mg/dL 7-23 H GLUCOSE (test code = 6915374603) 186 mg/dL 70-110 H CREATININE (test code = 2160-0) 1.78 mg/dL 0.60-1.25 H CALCIUM (test code = 4466968529) 8.1 mg/dL 8.6-10.6 L eGFR (test code = 62010-9) 43.9 mL/min/1.73m2 CKD-EPI eGFR (2020). Assuming creatinine has been stable day-to-day for at least three months, the eGFR indicates Category G3b (30 - 44 mL/min/1.73 m2) Lab Interpretation (test code = 04740-7) Abnormal [facility] Metabolic Panel (NA, K, CL, CO2, GLUCOSE, BUN, CREATININE, CA)2024-03-26 03:02:27* Test Item Value Reference Range Interpretation Comme nts NA (test code = 8456230751) 132 mmol/L 135-145 L K (test code = 3230430673) 4.1 mmol/L 3.5-5.0 CL (test code = 0044779008) 93 mmol/L 98-108 L CO2 TOTAL (test code = 4923007315) 36 mmol/L 23-31 H AGAP (test code = 7236924748) 3 2-16 BUN (test code = 5674950889) 34 mg/dL 7-23 H GLUCOSE (test code = 5800445425) 186 mg/dL 70-110 H CREATININE (test code = 2160-0) 1.78 mg/dL 0.60-1.25 H CALCIUM (test code = 8585053775) 8.1 mg/dL 8.6-10.6 L eGFR (test code = 39992-4) 43.9 mL/min/1.73m2 CKD-EPI eGFR (2020). Assuming creatinine has been stable day-to-day for at least three months, the eGFR indicates Category G3b (30 - 44 mL/min/1.73 m2) Lab Interpretation (test code = 52302-4) Abnormal [facility] Metabolic Panel (NA, K, CL, CO2, GLUCOSE, BUN, CREATININE, CA)2024-03-26 03:02:27* Test Item Value Reference Range Interpretation Comme nts NA (test code = 1882868732) 132 mmol/L 135-145 L K (test code = 3733909409) 4.1 mmol/L 3.5-5.0 CL (test code = 0933881540) 93 mmol/L 98-108 L CO2 TOTAL (test code = 1409607355) 36 mmol/L 23-31 H AGAP (test code = 4018047263) 3 2-16 BUN (test code = 9382315005) 34 mg/dL 7-23 H GLUCOSE (test code = 6242983465) 186 mg/dL 70-110 H CREATININE (test code = 2160-0) 1.78 mg/dL 0.60-1.25 H CALCIUM (test code = 2201995275) 8.1 mg/dL 8.6-10.6 L eGFR (test code = 26866-1) 43.9 mL/min/1.73m2 CKD-EPI eGFR (2020). Assuming creatinine has been stable day-to-day for at least three months, the eGFR indicates Category G3b (30 - 44 mL/min/1.73 m2) Lab Interpretation (test code = 45029-4) Abnormal [facility] GLUCOSE (AUTOMATED)2024-03-26 01:46:15* Test Item Value Reference Range Interpretation Comme nts POCT GLU (test code = 0505971123) 173 mg/dL 70-110 H Lab Interpretation (test cod e = 24760-7) Abnormal [facility] GLUCOSE (AUTOMATED)2024-03-26 01:46:15* Test Item Value Reference Range Interpretation Comme nts POCT GLU (test code = 9440915655) 173 mg/dL 70-110 H Lab Interpretation (test cod e = 59765-8) Abnormal [facility] GLUCOSE (AUTOMATED)2024-03-26 01:46:15* Test Item Value Reference Range Interpretation Comme nts POCT GLU (test code = 7340814170) 173 mg/dL 70-110 H Lab Interpretation (test cod e = 12249-3) [facility] Nojgh0565-62-20 21:24:25* Test Item Value Reference Range Interpretation Comme nts LACTIC ACID (test code = 1183920837) 0.64 mmol/L 0.50-2.20 Lab Interpretation (test cod e = 19914-7) [facility] Vyhga7502-48-41 21:24:25* Test Item Value Reference Range Interpretation Comme nts LACTIC ACID (test code = 9435237953) 0.64 mmol/L 0.50-2.20 Lab Interpretation (test cod e = 14034-0) Normal [facility] Kwrrf2701-97-02 21:24:25* Test Item Value Reference Range Interpretation Comme nts LACTIC ACID (test code = 9912244870) 0.64 mmol/L 0.50-2.20 Lab Interpretation (test cod e = 34921-9) Normal [facility] GLUCOSE (AUTOMATED)2024-03-25 21:04:32* Test Item Value Reference Range Interpretation Comme nts POCT GLU (test code = 0873350769) 193 mg/dL 70-110 H Lab Interpretation (test cod e = 63268-1) Abnormal [facility] GLUCOSE (AUTOMATED)2024-03-25 21:04:32* Test Item Value Reference Range Interpretation Comme nts POCT GLU (test code = 9337865386) 193 mg/dL 70-110 H Lab Interpretation (test cod e = 93802-7) Abnormal [facility] GLUCOSE (AUTOMATED)2024-03-25 21:04:32* Test Item Value Reference Range Interpretation Comme nts POCT GLU (test code = 7160826742) 193 mg/dL 70-110 H Lab Interpretation (test cod e = 83990-4) Abnormal [facility] Metabolic Panel (NA, K, CL, CO2, GLUCOSE, BUN, CREATININE, CA)2024-03-25 17:44:14* Test Item Value Reference Range Interpretation Comme nts NA (test code = 3791058977) 132 mmol/L 135-145 L K (test code = 6030433115) 3.7 mmol/L 3.5-5.0 CL (test code = 5896446699) 94 mmol/L 98-108 L CO2 TOTAL (test code = 1642215409) 36 mmol/L 23-31 H AGAP (test code = 7820435940) 2 2-16 BUN (test code = 8107900796) 33 mg/dL 7-23 H GLUCOSE (test code = 6280849404) 212 mg/dL 70-110 H CREATININE (test code = 2160-0) 1.66 mg/dL 0.60-1.25 H CALCIUM (test code = 8855352236) 8.0 mg/dL 8.6-10.6 L eGFR (test code = 39724-9) 47.8 mL/min/1.73m2 CKD-EPI eGFR (2020). Assuming creatinine has been stable day-to-day for at least three months, the eGFR indicates Category G3a (45 - 59 mL/min/1.73 m2) Lab Interpretation (test code = 50411-2) Abnormal [facility] Metabolic Panel (NA, K, CL, CO2, GLUCOSE, BUN, CREATININE, CA)2024-03-25 17:44:14* Test Item Value Reference Range Interpretation Comme nts NA (test code = 0345924039) 132 mmol/L 135-145 L K (test code = 0494728726) 3.7 mmol/L 3.5-5.0 CL (test code = 9292025368) 94 mmol/L 98-108 L CO2 TOTAL (test code = 6414776737) 36 mmol/L 23-31 H AGAP (test code = 1142641001) 2 2-16 BUN (test code = 9093913455) 33 mg/dL 7-23 H GLUCOSE (test code = 2790090244) 212 mg/dL 70-110 H CREATININE (test code = 2160-0) 1.66 mg/dL 0.60-1.25 H CALCIUM (test code = 5562544989) 8.0 mg/dL 8.6-10.6 L eGFR (test code = 03384-2) 47.8 mL/min/1.73m2 CKD-EPI eGFR (2020). Assuming creatinine has been stable day-to-day for at least three months, the eGFR indicates Category G3a (45 - 59 mL/min/1.73 m2) Lab Interpretation (test code = 58125-0) Abnormal [facility] Metabolic Panel (NA, K, CL, CO2, GLUCOSE, BUN, CREATININE, CA)2024-03-25 17:44:14* Test Item Value Reference Range Interpretation Comme nts NA (test code = 8757275101) 132 mmol/L 135-145 L K (test code = 0918375433) 3.7 mmol/L 3.5-5.0 CL (test code = 0954062522) 94 mmol/L 98-108 L CO2 TOTAL (test code = 7293663467) 36 mmol/L 23-31 H AGAP (test code = 6538911469) 2 2-16 BUN (test code = 8953152913) 33 mg/dL 7-23 H GLUCOSE (test code = 7050957294) 212 mg/dL 70-110 H CREATININE (test code = 2160-0) 1.66 mg/dL 0.60-1.25 H CALCIUM (test code = 0505891820) 8.0 mg/dL 8.6-10.6 L eGFR (test code = 64464-8) 47.8 mL/min/1.73m2 CKD-EPI eGFR (2020). Assuming creatinine has been stable day-to-day for at least three months, the eGFR indicates Category G3a (45 - 59 mL/min/1.73 m2) Lab Interpretation (test code = 39745-1) Abnormal [facility] GLUCOSE (AUTOMATED)2024-03-25 17:40:07* Test Item Value Reference Range Interpretation Comme nts POCT GLU (test code = 0512116300) 199 mg/dL 70-110 H Lab Interpretation (test cod e = 08524-8) Abnormal [facility] GLUCOSE (AUTOMATED)2024-03-25 17:40:07* Test Item Value Reference Range Interpretation Comme nts POCT GLU (test code = 3692251937) 199 mg/dL 70-110 H Lab Interpretation (test cod e = 39396-3) Abnormal [facility] GLUCOSE (AUTOMATED)2024-03-25 17:40:07* Test Item Value Reference Range Interpretation Comme nts POCT GLU (test code = 8669018339) 199 mg/dL 70-110 H Lab Interpretation (test cod e = 43042-6) Abnormal [facility] GLUCOSE (AUTOMATED)2024-03-25 12:42:15* Test Item Value Reference Range Interpretation Comme nts POCT GLU (test code = 7006043416) 149 mg/dL 70-110 H Lab Interpretation (test cod e = 78638-0) Abnormal [facility] GLUCOSE (AUTOMATED)2024-03-25 12:42:15* Test Item Value Reference Range Interpretation Comme nts POCT GLU (test code = 4262628053) 149 mg/dL 70-110 H Lab Interpretation (test cod e = 93020-6) Abnormal [facility] GLUCOSE (AUTOMATED)2024-03-25 12:42:15* Test Item Value Reference Range Interpretation Comme [facility] POCT GLU (test code = 0850582249) 149 mg/dL 70-110 H Lab Interpretation (test cod e = 69496-6) [facility] (NA, K, CL, CO2, GLUCOSE, BUN, CREATININE, CA)2024-03-25 03:29:13* Test Item Value Reference Range Interpretation Comme nts NA (test code = 4567899199) 133 mmol/L 135-145 L K (test code = 1923396519) 3.6 mmol/L 3.5-5.0 CL (test code = 7706690524) 95 mmol/L 98-108 L CO2 TOTAL (test code = 4457221075) 32 mmol/L 23-31 H AGAP (test code = 1718349541) 6 2-16 BUN (test code = 4441148646) 36 mg/dL 7-23 H GLUCOSE (test code = 9523401141) 129 mg/dL 70-110 H CREATININE (test code = 2160-0) 1.55 mg/dL 0.60-1.25 H CALCIUM (test code = 7377665902) 8.0 mg/dL 8.6-10.6 L eGFR (test code = 66645-1) 51.9 mL/min/1.73m2 CKD-EPI eGFR (2020). Assuming creatinine has been stable day-to-day for at least three months, the eGFR indicates Category G3a (45 - 59 mL/min/1.73 m2) Lab Interpretation (test code = 97380-5) [facility]normal [facility]64[facility] (ALB,T.PRO,BILI T,BU/BC,ALT,AST,ALK PHOS)2024-03-25 03:29:13* Test Item Value Reference Range Interpretation Comme nts TOTAL BILI (test code = 5272129815) 1.8 mg/dL 0.1-1.1 H BILI UNCON (test code = 7330170892) 0.6 mg/dL 0.1-1.1 BILI CONJ (test code = 4642715903) 0.0 mg/dL 0.0-0.3 T PROTEIN (test code = 6078106785) 6.6 g/dL 6.3-8.2 ALBUMIN (test code = 0506941515) 3.3 g/dL 3.5-5.0 L ALK PHOS (test code = 3344951717) 134 U/L 34-122 H ALTv (test code = 1742-6) 14 U/L 5-50 AST(SGOT) (test code = 8013689570) 21 U/L 13-40 Lab Interpretation (test cod e = 34407-8) [facility]normal [facility] (NA, K, CL, CO2, GLUCOSE, BUN, CREATININE, CA)2024-03-25 03:29:13* Test Item Value Reference Range Interpretation Comme nts NA (test code = 5764523970) 133 mmol/L 135-145 L K (test code = 3272167858) 3.6 mmol/L 3.5-5.0 CL (test code = 9212694108) 95 mmol/L 98-108 L CO2 TOTAL (test code = 4859209773) 32 mmol/L 23-31 H AGAP (test code = 6030806122) 6 2-16 BUN (test code = 2456461082) 36 mg/dL 7-23 H GLUCOSE (test code = 9515860930) 129 mg/dL 70-110 H CREATININE (test code = 2160-0) 1.55 mg/dL 0.60-1.25 H CALCIUM (test code = 2613512566) 8.0 mg/dL 8.6-10.6 L eGFR (test code = 04822-9) 51.9 mL/min/1.73m2 CKD-EPI eGFR (2020). Assuming creatinine has been stable day-to-day for at least three months, the eGFR indicates Category G3a (45 - 59 mL/min/1.73 m2) Lab Interpretation (test code = 40220-6) [facility]normal [facility] (85403[facility] (ALB,T.PRO,BILI T,BU/BC,ALT,AST,ALK PHOS)2024-03-25 03:29:13* Test Item Value Reference Range Interpretation Comme nts TOTAL BILI (test code = 4965077181) 1.8 mg/dL 0.1-1.1 H BILI UNCON (test code = 8395627581) 0.6 mg/dL 0.1-1.1 BILI CONJ (test code = 5530469394) 0.0 mg/dL 0.0-0.3 T PROTEIN (test code = 0291289387) 6.6 g/dL 6.3-8.2 ALBUMIN (test code = 3712404017) 3.3 g/dL 3.5-5.0 L ALK PHOS (test code = 8122094889) 134 U/L 34-122 H ALTv (test code = 1742-6) 14 U/L 5-50 AST(SGOT) (test code = 3279218944) 21 U/L 13-40 Lab Interpretation (test cod e = 99377-9) [facility] (NA, K, CL, CO2, GLUCOSE, BUN, CREATININE, CA)2024-03-25 03:29:13* Test Item Value Reference Range Interpretation Comme nts NA (test code = 1054816152) 133 mmol/L 135-145 L K (test code = 0571747427) 3.6 mmol/L 3.5-5.0 CL (test code = 5766383726) 95 mmol/L 98-108 L CO2 TOTAL (test code = 4267391951) 32 mmol/L 23-31 H AGAP (test code = 0697517079) 6 2-16 BUN (test code = 2849970053) 36 mg/dL 7-23 H GLUCOSE (test code = 7733535399) 129 mg/dL 70-110 H CREATININE (test code = 2160-0) 1.55 mg/dL 0.60-1.25 H CALCIUM (test code = 1675080768) 8.0 mg/dL 8.6-10.6 L eGFR (test code = 37780-7) 51.9 mL/min/1.73m2 CKD-EPI eGFR (2020). Assuming creatinine has been stable day-to-day for at least three months, the eGFR indicates Category G3a (45 - 59 mL/min/1.73 m2) Lab Interpretation (test code = 99279-9) [facility]normal [facility] (94275[facility] (ALB,T.PRO,BILI T,BU/BC,ALT,AST,ALK PHOS)2024-03-25 03:29:13* Test Item Value Reference Range Interpretation Comme nts TOTAL BILI (test code = 9918076360) 1.8 mg/dL 0.1-1.1 H BILI UNCON (test code = 6918170272) 0.6 mg/dL 0.1-1.1 BILI CONJ (test code = 5211626532) 0.0 mg/dL 0.0-0.3 T PROTEIN (test code = 9473028195) 6.6 g/dL 6.3-8.2 ALBUMIN (test code = 4746123476) 3.3 g/dL 3.5-5.0 L ALK PHOS (test code = 3142089225) 134 U/L 34-122 H ALTv (test code = 1742-6) 14 U/L 5-50 AST(SGOT) (test code = 9030545586) 21 U/L 13-40 Lab Interpretation (test cod e = 12859-4) Abnormal [facility] with [id number] 03:26:11* Test Item Value Reference Range Interpretation Comme nts WBC (test code = 6690-2) 9.60 4.20-10.70 RBC (test code = 789-8) 5.07 4.26-5.52 HGB (test code = 718-7) 11.6 g/dL 12.2-16.4 L HCT (test code = 4544-3) 39.5 % 38.4-49.3 MCV (test code = 787-2) 77.9 fL 81.7-95.6 L MCH (test code = 785-6) 22.9 pg 26.1-32.7 L MCHC (test code = 786-4) 29.4 g/dL 31.2-35.0 L RDW-SD (test code = 58815-2) 53.7 fL 38.5-51.6 H RDW-CV (test code = 788-0) 19.6 % 12.1-15.4 H PLT (test code = 777-3) 257 150-328 MPV (test code = 34720-0) 10.4 fL 9.8-13.0 NRBC/100 WBC (test code = 0198737984) 0.0 0.0-10.0 NRBC x10^3 (test code = 7177856566) See_Comment [Automated messa ge] The system which generated this result transmitted reference range: 10*3/?L. The reference range was not used to interpret this result as normal/abnormal. GRAN MAT (NEUT) % (test code = 770-8) 78.7 % IMM GRAN % (test code = 5156067770) 0.60 % LYMPH % (test code = 736-9) 9.5 % MONO % (test code = 5905-5) 9.3 % EOS % (test code = 713-8) 1.6 % BASO % (test code = 706-2) 0.3 % GRAN MAT x10^3(ANC) (test code = 9247518161) 7.56 10*3/uL 1.99-6.95 H IMM GRAN x10^3 (test code = 7400887638) 0.06 10*3/uL 0.00-0.06 LYMPH x10^3 (test code = 731-0) 0.91 10*3/uL 1.09-3.23 L MONO x10^3 (test code = 742-7) 0.89 10*3/uL 0.36-1.02 EOS x10^3 (test code = 711-2) 0.15 10*3/uL 0.06-0.53 BASO x10^3 (test code = 704-7) 0.03 10*3/uL 0.01-0.09 Lab Interpretation (test code = 56938-5) Abnormal [facility] with [id number] 03:26:11* Test Item Value Reference Range Interpretation Comme nts WBC (test code = 6690-2) 9.60 4.20-10.70 RBC (test code = 789-8) 5.07 4.26-5.52 HGB (test code = 718-7) 11.6 g/dL 12.2-16.4 L HCT (test code = 4544-3) 39.5 % 38.4-49.3 MCV (test code = 787-2) 77.9 fL 81.7-95.6 L MCH (test code = 785-6) 22.9 pg 26.1-32.7 L MCHC (test code = 786-4) 29.4 g/dL 31.2-35.0 L RDW-SD (test code = 91448-0) 53.7 fL 38.5-51.6 H RDW-CV (test code = 788-0) 19.6 % 12.1-15.4 H PLT (test code = 777-3) 257 150-328 MPV (test code = 87549-6) 10.4 fL 9.8-13.0 NRBC/100 WBC (test code = 8008454823) 0.0 0.0-10.0 NRBC x10^3 (test code = 4582512237) See_Comment [Automated messa ge] The system which generated this result transmitted reference range: 10*3/?L. The reference range was not used to interpret this result as normal/abnormal. GRAN MAT (NEUT) % (test code = 770-8) 78.7 % IMM GRAN % (test code = 8733996918) 0.60 % LYMPH % (test code = 736-9) 9.5 % MONO % (test code = 5905-5) 9.3 % EOS % (test code = 713-8) 1.6 % BASO % (test code = 706-2) 0.3 % GRAN MAT x10^3(ANC) (test code = 8456684491) 7.56 10*3/uL 1.99-6.95 H IMM GRAN x10^3 (test code = 7209974782) 0.06 10*3/uL 0.00-0.06 LYMPH x10^3 (test code = 731-0) 0.91 10*3/uL 1.09-3.23 L MONO x10^3 (test code = 742-7) 0.89 10*3/uL 0.36-1.02 EOS x10^3 (test code = 711-2) 0.15 10*3/uL 0.06-0.53 BASO x10^3 (test code = 704-7) 0.03 10*3/uL 0.01-0.09 Lab Interpretation (test code = 99810-8) Abnormal [facility] with [id number] 03:26:11* Test Item Value Reference Range Interpretation Comme nts WBC (test code = 6690-2) 9.60 4.20-10.70 RBC (test code = 789-8) 5.07 4.26-5.52 HGB (test code = 718-7) 11.6 g/dL 12.2-16.4 L HCT (test code = 4544-3) 39.5 % 38.4-49.3 MCV (test code = 787-2) 77.9 fL 81.7-95.6 L MCH (test code = 785-6) 22.9 pg 26.1-32.7 L MCHC (test code = 786-4) 29.4 g/dL 31.2-35.0 L RDW-SD (test code = 08293-2) 53.7 fL 38.5-51.6 H RDW-CV (test code = 788-0) 19.6 % 12.1-15.4 H PLT (test code = 777-3) 257 150-328 MPV (test code = 91062-1) 10.4 fL 9.8-13.0 NRBC/100 WBC (test code = 2221386269) 0.0 0.0-10.0 NRBC x10^3 (test code = 2608297510) See_Comment [Automated messa ge] The system which generated this result transmitted reference range: 10*3/?L. The reference range was not used to interpret this result as normal/abnormal. GRAN MAT (NEUT) % (test code = 770-8) 78.7 % IMM GRAN % (test code = 1669759073) 0.60 % LYMPH % (test code = 736-9) 9.5 % MONO % (test code = 5905-5) 9.3 % EOS % (test code = 713-8) 1.6 % BASO % (test code = 706-2) 0.3 % GRAN MAT x10^3(ANC) (test code = 9712167044) 7.56 10*3/uL 1.99-6.95 H IMM GRAN x10^3 (test code = 1081624297) 0.06 10*3/uL 0.00-0.06 LYMPH x10^3 (test code = 731-0) 0.91 10*3/uL 1.09-3.23 L MONO x10^3 (test code = 742-7) 0.89 10*3/uL 0.36-1.02 EOS x10^3 (test code = 711-2) 0.15 10*3/uL 0.06-0.53 BASO x10^3 (test code = 704-7) 0.03 10*3/uL 0.01-0.09 Lab Interpretation (test code = 29846-8) [facility]normal [facility] + Lactic Ubmk2836-12-11 03:09:50* Test Item Value Reference Range Interpretation Comme nts PH (test code = 0497763536) 7.31 7.32-7.42 L PCO2 JEANNETTE (test code = 6144057830) 64 41-51 H PO2 JEANNETTE (test code = 3558551619) 27 25-40 HCO3 JEANNETTE (test code = 2837602876) 31 24-28 H AC VBE(BEAKER) (test code = 4260952473) 3.3 mEq/L THB JEANNETTE (test code = 7345898754) 12.8 g/dL 13.5-18.0 L %O2HB JEANNETTE (test code = 9150260399) 43.3 % 52.0-63.0 L %COHB JEANNETTE (test code = 8755196585) 1.0 % 0.0-1.5 %METHB JEANNETTE (test code = 1027682379) 0.0 % 0.4-1.5 L VOL%O2 JEANNETTE (test code = 5124985978) 7.8 % 6.0-12.0 NA (test code = 3671031200) 135 mmol/L 135-145 K+ (test code = 6324403548) 3.7 mmol/L 3.5-5.0 AC CA IONZ (test code = 9291971151) 4.60 mg/dL 4.50-5.30 GLUCOSE (test code = 8621310620) 136 mg/dL 70-110 H LACTIC ACID (test code = 0804417384) 1.45 mmol/L 0.50-2.20 QUES Lab Interpretation (test cod e = 94221-6) Abnormal [facility] Panel 21 + Lactic [id number] 03:09:50* Test Item Value Reference Range Interpretation Comme nts PH (test code = 6318266964) 7.31 7.32-7.42 L PCO2 JEANNETTE (test code = 2939222042) 64 41-51 H PO2 JEANNETTE (test code = 2883740946) 27 25-40 HCO3 JEANNETTE (test code = 2482754683) 31 24-28 H AC VBE(BEAKER) (test code = 6465967591) 3.3 mEq/L THB JEANNETTE (test code = 8491231653) 12.8 g/dL 13.5-18.0 L %O2HB JEANNETTE (test code = 1256764664) 43.3 % 52.0-63.0 L %COHB JEANNETTE (test code = 0758991234) 1.0 % 0.0-1.5 %METHB JEANNETTE (test code = 8009628678) 0.0 % 0.4-1.5 L VOL%O2 JEANNETTE (test code = 0590043030) 7.8 % 6.0-12.0 NA (test code = 0945901558) 135 mmol/L 135-145 K+ (test code = 8905212878) 3.7 mmol/L 3.5-5.0 AC CA IONZ (test code = 2358325539) 4.60 mg/dL 4.50-5.30 GLUCOSE (test code = 9329865418) 136 mg/dL 70-110 H LACTIC ACID (test code = 1659830596) 1.45 mmol/L 0.50-2.20 QUES Lab Interpretation (test cod e = 69802-1) [facility]normal [facility] + Lactic [id number] 03:09:50* Test Item Value Reference Range Interpretation Comme nts PH (test code = 3649670093) 7.31 7.32-7.42 L PCO2 JEANNETTE (test code = 5915381235) 64 41-51 H PO2 JEANNETTE (test code = 0801687508) 27 25-40 HCO3 JEANNETTE (test code = 2376273051) 31 24-28 H AC VBE(BEAKER) (test code = 9629941161) 3.3 mEq/L THB JEANNETTE (test code = 9316102495) 12.8 g/dL 13.5-18.0 L %O2HB JEANNETTE (test code = 0870203389) 43.3 % 52.0-63.0 L %COHB JEANNETTE (test code = 6214911605) 1.0 % 0.0-1.5 %METHB JEANNETTE (test code = 5349373761) 0.0 % 0.4-1.5 L VOL%O2 JEANNETTE (test code = 4627833517) 7.8 % 6.0-12.0 NA (test code = 3795405294) 135 mmol/L 135-145 K+ (test code = 2742436970) 3.7 mmol/L 3.5-5.0 AC CA IONZ (test code = 0589839184) 4.60 mg/dL 4.50-5.30 GLUCOSE (test code = 4827527650) 136 mg/dL 70-110 H LACTIC ACID (test code = 4096573288) 1.45 mmol/L 0.50-2.20 QUES Lab Interpretation (test cod e = 89595-8) [facility]normal [facility] + Lactic Kszq8276-63-85 03:09:50* Test Item Value Reference Range Interpretation Comme nts PH (test code = 7566571211) 7.31 7.32-7.42 L PCO2 JEANNETTE (test code = 2263407257) 64 41-51 H PO2 JEANNETTE (test code = 2337197698) 27 25-40 HCO3 JEANNETTE (test code = 0032154727) 31 24-28 H AC VBE(BEAKER) (test code = 2875594487) 3.3 mEq/L THB JEANNETTE (test code = 1629804877) 12.8 g/dL 13.5-18.0 L %O2HB JEANNETTE (test code = 5661166031) 43.3 % 52.0-63.0 L %COHB JEANNETTE (test code = 8709461732) 1.0 % 0.0-1.5 %METHB JEANNETTE (test code = 3404309802) 0.0 % 0.4-1.5 L VOL%O2 JEANNETTE (test code = 3094943231) 7.8 % 6.0-12.0 NA (test code = 1877093190) 135 mmol/L 135-145 K+ (test code = 6145815398) 3.7 mmol/L 3.5-5.0 AC CA IONZ (test code = 6658210589) 4.60 mg/dL 4.50-5.30 GLUCOSE (test code = 4021863787) 136 mg/dL 70-110 H LACTIC ACID (test code = 0850114786) 1.45 mmol/L 0.50-2.20 QUES Lab Interpretation (test cod e = 22460-3) Abnormal [facility] GLUCOSE (AUTOMATED)2024-03-25 03:04:18* Test Item Value Reference Range Interpretation Comme [facility] POCT GLU (test code = 9929822809) 139 mg/dL 70-110 H Lab Interpretation (test cod e = 76062-9) Abnormal [facility] GLUCOSE (AUTOMATED)2024-03-25 03:04:18* Test Item Value Reference Range Interpretation Comme [facility] POCT GLU (test code = 0398805503) 139 mg/dL 70-110 H Lab Interpretation (test cod e = 56824-1) Abnormal [facility] GLUCOSE (AUTOMATED)2024-03-25 03:04:18* Test Item Value Reference Range Interpretation Comme [facility] POCT GLU (test code = 6385424530) 139 mg/dL 70-110 H Lab Interpretation (test cod e = 72522-6) [facility]normal [facility]2024-03-24 23:10:08* Test Item Value Reference Range Interpretation Comme nts Height (test code = 4658437382) 61 in Weight (test code = 9125881351) 275 lbs Systolic BP (test code = 1245789760) 100 mmHg Diastolic BP (test code = 9716311933) 67 mmHg Heart Rate (test code = 5157176715) 76 bpm BSA (test code = 2038338577) 2.46 m2 Ao root diam (test code = 4281584858) 3.30 cm Aortic root (test code = 6997431468) 3.3 cm Ao root annulus (test code = 6499194090) 3.3 cm LVOT diameter (test code = 7991931627) 1.96 cm LVOT area (test code = 0265058681) 3.00 cm2 LA size (test code = 6927785039) 3.8 cm LVIDD (test code = 8148260125) 6.70 cm Left Ventricular End Diastolic Volume by Teichholz Method (test code = 3648677) 232.4 mL IVS (test code = 7930217973) 1.09 cm Interventricular Septum Diastolic Thickness by 2D (test code = 2488990) 1.09 cm LVPWD (test code = 2627594571) 1.09 cm PW (test code = 4465922843) 1.09 cm 0.6-1.1 EF(Teich) (test code = 2364318451) 11.30 % LVIDS (test code = 7811787611) 6.40 cm Left Ventricular End Systolic Volume by Teichholz Method (test code = 4749905) 206.0 mL FS (test code = 9029600623) 5 % EF - 2D (test code = 34166519) 11.30 % TR Peak Kenneth (test code = 4792058338) 143.7 cm/s Triscuspid Valve Regurgitation Peak Gradient (test code = 4094623698) 8.3 mmHg Pulmonic Regurgitant End Max Velocity (test code = 1679209982) 86.0 cm/s LAV(MOD-sp4) (test code = 2722488790) 64.50 mL MV Peak E Kenneth (test code = 0079500297) 66.6 cm/s E wave decelartion time (test code = 1843051076) 0.28 s MV Peak A Kenneth (test code = 5497400431) 22.0 cm/s E/A ratio (test code = 0530527896) 3.00 ratio MV stenosis pressure 1/2 time (test code = 7817043378) 82.5 ms MR max PG (test code = 1657111877) 37.50 mm[Hg] MR max kenneth (test code = 0610323388) 306.30 cm/s Mr max kenneth (test code = 4943851792) 306.3 m/s MV Prop V (test code = 0075533193) 65.40 cm/s MV E/e' septal (test code = 9546796369) 13.2 cm/s Tapse (test code = 8580568532) 1.24 cm LVOT stroke volume (test code = 2725054244) 37.80 cm3 LVOT peak kenneth (test code = 1303690174) 71.5 cm/s LVOT mn grad (test code = 2859843318) 1.0 mmHg AV LVOT peak gradient (test code = 3891146366) 2.05 mmHg LVOT peak VTI (test code = 6262314275) 12.6 cm LV V1 mean (test code = 2070212899) 48.30 cm/s Aortic valve mean velocity (test code = 0662085307) 76.5 cm/s Ao peak kenneth (test code = 2961454813) 101.6 cm/s Ao VTI (test code = 1500436796) 18.8 cm AV area by cont VTI (test code = 2836492107) 2.0 cm2 AV area peak kenneth (test code = 0949689308) 2.1 cm2 Ao max PG (test code = 0302247483) 4.10 mm[Hg] AV peak gradient (test code = 2048249756) 4.1 mmHg AV valve area (test code = 2879975586) 2.01 cm2 AV mean gradient (test code = 9518840512) 2.5 mmHg Radiology Study observation (narrative) (test code = 65565-9) ALCIDES (test code = ALCIDES) ?Left?Ventricle: Left ventricle is severely dilated. Normal wall thickness. Severe global hypokinesis present. Severely reduced systolic function with a visually estimated EF of 10 -15%. Diastolic dysfunction. Elevated left ventricular filling pressure. ?Right?Ventricle: Right ventricle is moderately dilated. Moderately reduced systolic function. ?Left?Atrium: Left atrium is moderately dilated. ?Tricuspid?Valve: Mild to moderate transvalvular regurgitation. Insufficient tricuspid regurgitation jet to estimate RVSP . ?RA pressure is 5-10 mmHg. ?Mitral?Valve: Moderate to severe transvalvular regurgitation with a posterolateral eccentrically directed jet. ?Aortic?Valve: Mild transvalvular regurgitation. Left VentricleLeft ventricle is severely dilated. Normal wall thickness. Severe global hypokinesis present. Severely reduced systolic function with a visually estimated EF of 10 -15%. Diastolic dysfunction. Elevated left ventricular filling pressure.Right VentricleRight ventricle is moderately dilated. Moderately reduced systolic function.Left AtriumLeft atrium is moderately dilated.Right AtriumRight atrium is mildly dilated.Mitral ValveMild mitral annular calcification. Moderate to severe transvalvular regurgitation with a posterolateral eccentrically directed jet.Tricuspid ValveTricuspid valve structure is normal. Mild to moderate transvalvular regurgitation. Insufficient tricuspid regurgitation jet to estimate RVSP . RA pressure is 5-10 mmHg.Aortic ValveAortic valve opens well. Mildly calcified cusps. Mild transvalvular regurgitation.Pulmoni c ValveNot well visualized.Ascending AortaNormal sized aortic root.PericardiumNo pericardial effusion.Study DetailsStudy quality was adequate. A complete echocardiogram was performed using 2D, color flow Doppler and spectral Doppler. 3 mL of Optison ultrasound enhancing agent used. [facility] 23:10:08* Test Item Value Reference Range Interpretation Comme nts Height (test code = 9659486585) 61 in Weight (test code = 9129501997) 275 lbs Systolic BP (test code = 0143912198) 100 mmHg Diastolic BP (test code = 6101991511) 67 mmHg Heart Rate (test code = 3528017218) 76 bpm BSA (test code = 2832317804) 2.46 m2 Ao root diam (test code = 0096094903) 3.30 cm Aortic root (test code = 0144309236) 3.3 cm Ao root annulus (test code = 2479347741) 3.3 cm LVOT diameter (test code = 8188305424) 1.96 cm LVOT area (test code = 0989421020) 3.00 cm2 LA size (test code = 9973506121) 3.8 cm LVIDD (test code = 4948853809) 6.70 cm Left Ventricular End Diastolic Volume by Teichholz Method (test code = 4668429) 232.4 mL IVS (test code = 9912214234) 1.09 cm Interventricular Septum Diastolic Thickness by 2D (test code = 2730507) 1.09 cm LVPWD (test code = 9358275223) 1.09 cm PW (test code = 3885439319) 1.09 cm 0.6-1.1 EF(Teich) (test code = 6907391998) 11.30 % LVIDS (test code = 3728928848) 6.40 cm Left Ventricular End Systolic Volume by Teichholz Method (test code = 5710354) 206.0 mL FS (test code = 8501514149) 5 % EF - 2D (test code = 37157399) 11.30 % TR Peak Kenneth (test code = 0166441102) 143.7 cm/s Triscuspid Valve Regurgitation Peak Gradient (test code = 8537231189) 8.3 mmHg Pulmonic Regurgitant End Max Velocity (test code = 8347295141) 86.0 cm/s LAV(MOD-sp4) (test code = 2730123551) 64.50 mL MV Peak E Kenneth (test code = 8280347154) 66.6 cm/s E wave decelartion time (test code = 9599657644) 0.28 s MV Peak A Kenneth (test code = 1451432699) 22.0 cm/s E/A ratio (test code = 2131717716) 3.00 ratio MV stenosis pressure 1/2 time (test code = 1058992703) 82.5 ms MR max PG (test code = 3079573348) 37.50 mm[Hg] MR max kenneth (test code = 8465191054) 306.30 cm/s Mr max kenneth (test code = 1825871845) 306.3 m/s MV Prop V (test code = 5254161269) 65.40 cm/s MV E/e' septal (test code = 1058820882) 13.2 cm/s Tapse (test code = 9165946545) 1.24 cm LVOT stroke volume (test code = 3328872168) 37.80 cm3 LVOT peak kenneth (test code = 0000744199) 71.5 cm/s LVOT mn grad (test code = 2912588909) 1.0 mmHg AV LVOT peak gradient (test code = 0016336956) 2.05 mmHg LVOT peak VTI (test code = 5942745903) 12.6 cm LV V1 mean (test code = 1893935890) 48.30 cm/s Aortic valve mean velocity (test code = 8468950974) 76.5 cm/s Ao peak kenneth (test code = 7150456945) 101.6 cm/s Ao VTI (test code = 3261015240) 18.8 cm AV area by cont VTI (test code = 5147799806) 2.0 cm2 AV area peak kenneth (test code = 2695437687) 2.1 cm2 Ao max PG (test code = 1213401417) 4.10 mm[Hg] AV peak gradient (test code = 7667930574) 4.1 mmHg AV valve area (test code = 3291002800) 2.01 cm2 AV mean gradient (test code = 4647577861) 2.5 mmHg Radiology Study observation (narrative) (test code = 01131-7) ALCIDES (test code = ALCIDES) ?Left?Ventricle: Left ventricle is severely dilated. Normal wall thickness. Severe global hypokinesis present. Severely reduced systolic function with a visually estimated EF of 10 -15%. Diastolic dysfunction. Elevated left ventricular filling pressure. ?Right?Ventricle: Right ventricle is moderately dilated. Moderately reduced systolic function. ?Left?Atrium: Left atrium is moderately dilated. ?Tricuspid?Valve: Mild to moderate transvalvular regurgitation. Insufficient tricuspid regurgitation jet to estimate RVSP . ?RA pressure is 5-10 mmHg. ?Mitral?Valve: Moderate to severe transvalvular regurgitation with a posterolateral eccentrically directed jet. ?Aortic?Valve: Mild transvalvular regurgitation. Left VentricleLeft ventricle is severely dilated. Normal wall thickness. Severe global hypokinesis present. Severely reduced systolic function with a visually estimated EF of 10 -15%. Diastolic dysfunction. Elevated left ventricular filling pressure.Right VentricleRight ventricle is moderately dilated. Moderately reduced systolic function.Left AtriumLeft atrium is moderately dilated.Right AtriumRight atrium is mildly dilated.Mitral ValveMild mitral annular calcification. Moderate to severe transvalvular regurgitation with a posterolateral eccentrically directed jet.Tricuspid ValveTricuspid valve structure is normal. Mild to moderate transvalvular regurgitation. Insufficient tricuspid regurgitation jet to estimate RVSP . RA pressure is 5-10 mmHg.Aortic ValveAortic valve opens well. Mildly calcified cusps. Mild transvalvular regurgitation.Pulmoni c ValveNot well visualized.Ascending AortaNormal sized aortic root.PericardiumNo pericardial effusion.Study DetailsStudy quality was adequate. A complete echocardiogram was performed using 2D, color flow Doppler and spectral Doppler. 3 mL of Optison ultrasound enhancing agent used. [facility] 23:10:08* Test Item Value Reference Range Interpretation Comme nts Height (test code = 6325221307) 61 in Weight (test code = 6333797897) 275 lbs Systolic BP (test code = 0777597293) 100 mmHg Diastolic BP (test code = 0829623109) 67 mmHg Heart Rate (test code = 9556630432) 76 bpm BSA (test code = 7959894995) 2.46 m2 Ao root diam (test code = 5009718540) 3.30 cm Aortic root (test code = 4067474307) 3.3 cm Ao root annulus (test code = 1849818143) 3.3 cm LVOT diameter (test code = 0285443404) 1.96 cm LVOT area (test code = 6057556340) 3.00 cm2 LA size (test code = 8644879439) 3.8 cm LVIDD (test code = 1099207852) 6.70 cm Left Ventricular End Diastolic Volume by Teichholz Method (test code = 8608658) 232.4 mL IVS (test code = 3781426509) 1.09 cm Interventricular Septum Diastolic Thickness by 2D (test code = 6691815) 1.09 cm LVPWD (test code = 5960038077) 1.09 cm PW (test code = 5567767819) 1.09 cm 0.6-1.1 EF(Teich) (test code = 2514612319) 11.30 % LVIDS (test code = 9292246536) 6.40 cm Left Ventricular End Systolic Volume by Teichholz Method (test code = 8721651) 206.0 mL FS (test code = 2971188890) 5 % EF - 2D (test code = 32630040) 11.30 % TR Peak Kenneth (test code = 7168834800) 143.7 cm/s Triscuspid Valve Regurgitation Peak Gradient (test code = 0872093804) 8.3 mmHg Pulmonic Regurgitant End Max Velocity (test code = 1419981468) 86.0 cm/s LAV(MOD-sp4) (test code = 1863456308) 64.50 mL MV Peak E Kenneth (test code = 3636759523) 66.6 cm/s E wave decelartion time (test code = 0163530924) 0.28 s MV Peak A Kenneth (test code = 7152799626) 22.0 cm/s E/A ratio (test code = 2435148017) 3.00 ratio MV stenosis pressure 1/2 time (test code = 1195929103) 82.5 ms MR max PG (test code = 6108213615) 37.50 mm[Hg] MR max kenenth (test code = 7598972920) 306.30 cm/s Mr max kenneth (test code = 2975679738) 306.3 m/s MV Prop V (test code = 6569758529) 65.40 cm/s MV E/e' septal (test code = 5150013373) 13.2 cm/s Tapse (test code = 4264248015) 1.24 cm LVOT stroke volume (test code = 3870190543) 37.80 cm3 LVOT peak kenneth (test code = 6538775525) 71.5 cm/s LVOT mn grad (test code = 8041388885) 1.0 mmHg AV LVOT peak gradient (test code = 0175098554) 2.05 mmHg LVOT peak VTI (test code = 6104318904) 12.6 cm LV V1 mean (test code = 7862949068) 48.30 cm/s Aortic valve mean velocity (test code = 1559931864) 76.5 cm/s Ao peak kenneth (test code = 1832015484) 101.6 cm/s Ao VTI (test code = 5209580170) 18.8 cm AV area by cont VTI (test code = 7212922173) 2.0 cm2 AV area peak kenneth (test code = 4437849406) 2.1 cm2 Ao max PG (test code = 4081289776) 4.10 mm[Hg] AV peak gradient (test code = 1155093568) 4.1 mmHg AV valve area (test code = 1828367869) 2.01 cm2 AV mean gradient (test code = 3193155730) 2.5 mmHg Radiology Study observation (narrative) (test code = 04019-6) ALCIDES (test code = ALCIDES) ?Left?Ventricle: Left ventricle is severely dilated. Normal wall thickness. Severe global hypokinesis present. Severely reduced systolic function with a visually estimated EF of 10 -15%. Diastolic dysfunction. Elevated left ventricular filling pressure. ?Right?Ventricle: Right ventricle is moderately dilated. Moderately reduced systolic function. ?Left?Atrium: Left atrium is moderately dilated. ?Tricuspid?Valve: Mild to moderate transvalvular regurgitation. Insufficient tricuspid regurgitation jet to estimate RVSP . ?RA pressure is 5-10 mmHg. ?Mitral?Valve: Moderate to severe transvalvular regurgitation with a posterolateral eccentrically directed jet. ?Aortic?Valve: Mild transvalvular regurgitation. Left VentricleLeft ventricle is severely dilated. Normal wall thickness. Severe global hypokinesis present. Severely reduced systolic function with a visually estimated EF of 10 -15%. Diastolic dysfunction. Elevated left ventricular filling pressure.Right VentricleRight ventricle is moderately dilated. Moderately reduced systolic function.Left AtriumLeft atrium is moderately dilated.Right AtriumRight atrium is mildly dilated.Mitral ValveMild mitral annular calcification. Moderate to severe transvalvular regurgitation with a posterolateral eccentrically directed jet.Tricuspid ValveTricuspid valve structure is normal. Mild to moderate transvalvular regurgitation. Insufficient tricuspid regurgitation jet to estimate RVSP . RA pressure is 5-10 mmHg.Aortic ValveAortic valve opens well. Mildly calcified cusps. Mild transvalvular regurgitation.Pulmoni c ValveNot well visualized.Ascending AortaNormal sized aortic root.PericardiumNo pericardial effusion.Study DetailsStudy quality was adequate. A complete echocardiogram was performed using 2D, color flow Doppler and spectral Doppler. 3 mL of Optison ultrasound enhancing agent used. [facility]24-[facility]-24 23:10:08* Test Item Value Reference Range Interpretation Comme nts Height (test code = 6314048182) 61 in Weight (test code = 7444532388) 275 lbs Systolic BP (test code = 3801118264) 100 mmHg Diastolic BP (test code = 9625010135) 67 mmHg Heart Rate (test code = 1879272333) 76 bpm BSA (test code = 8946110906) 2.46 m2 Ao root diam (test code = 3310327948) 3.30 cm Aortic root (test code = 1708550518) 3.3 cm Ao root annulus (test code = 3987635777) 3.3 cm LVOT diameter (test code = 3248379526) 1.96 cm LVOT area (test code = 1234164704) 3.00 cm2 LA size (test code = 2504493244) 3.8 cm LVIDD (test code = 5441459479) 6.70 cm Left Ventricular End Diastolic Volume by Teichholz Method (test code = 1592767) 232.4 mL IVS (test code = 8629885148) 1.09 cm Interventricular Septum Diastolic Thickness by 2D (test code = 4190437) 1.09 cm LVPWD (test code = 9250741844) 1.09 cm PW (test code = 7470866384) 1.09 cm 0.6-1.1 EF(Teich) (test code = 7030920840) 11.30 % LVIDS (test code = 7835687529) 6.40 cm Left Ventricular End Systolic Volume by Teichholz Method (test code = 9370040) 206.0 mL FS (test code = 4623334497) 5 % EF - 2D (test code = 62827124) 11.30 % TR Peak Kenneth (test code = 8059464961) 143.7 cm/s Triscuspid Valve Regurgitation Peak Gradient (test code = 1019958036) 8.3 mmHg Pulmonic Regurgitant End Max Velocity (test code = 1655122029) 86.0 cm/s LAV(MOD-sp4) (test code = 6480360478) 64.50 mL MV Peak E Kenneth (test code = 5885172853) 66.6 cm/s E wave decelartion time (test code = 9859418702) 0.28 s MV Peak A Kenneth (test code = 9835400139) 22.0 cm/s E/A ratio (test code = 3913966171) 3.00 ratio MV stenosis pressure 1/2 time (test code = 1511749960) 82.5 ms MR max PG (test code = 7608624897) 37.50 mm[Hg] MR max kenneth (test code = 6655379982) 306.30 cm/s Mr max kenneth (test code = 1195891748) 306.3 m/s MV Prop V (test code = 3930162344) 65.40 cm/s MV E/e' septal (test code = 8389363870) 13.2 cm/s Tapse (test code = 4843467964) 1.24 cm LVOT stroke volume (test code = 8027549379) 37.80 cm3 LVOT peak kenneth (test code = 9046067212) 71.5 cm/s LVOT mn grad (test code = 3450537220) 1.0 mmHg AV LVOT peak gradient (test code = 1478157880) 2.05 mmHg LVOT peak VTI (test code = 1125823099) 12.6 cm LV V1 mean (test code = 4000795982) 48.30 cm/s Aortic valve mean velocity (test code = 3151520702) 76.5 cm/s Ao peak kenneth (test code = 6813226330) 101.6 cm/s Ao VTI (test code = 1326055576) 18.8 cm AV area by cont VTI (test code = 8247498928) 2.0 cm2 AV area peak kenneth (test code = 3576927156) 2.1 cm2 Ao max PG (test code = 4334210805) 4.10 mm[Hg] AV peak gradient (test code = 2763966495) 4.1 mmHg AV valve area (test code = 2879893888) 2.01 cm2 AV mean gradient (test code = 8021456375) 2.5 mmHg Radiology Study observation (narrative) (test code = 60775-1) ALCIDES (test code = ALCIDES) ?Left?Ventricle: Left ventricle is severely dilated. Normal wall thickness. Severe global hypokinesis present. Severely reduced systolic function with a visually estimated EF of 10 -15%. Diastolic dysfunction. Elevated left ventricular filling pressure. ?Right?Ventricle: Right ventricle is moderately dilated. Moderately reduced systolic function. ?Left?Atrium: Left atrium is moderately dilated. ?Tricuspid?Valve: Mild to moderate transvalvular regurgitation. Insufficient tricuspid regurgitation jet to estimate RVSP . ?RA pressure is 5-10 mmHg. ?Mitral?Valve: Moderate to severe transvalvular regurgitation with a posterolateral eccentrically directed jet. ?Aortic?Valve: Mild transvalvular regurgitation. Left VentricleLeft ventricle is severely dilated. Normal wall thickness. Severe global hypokinesis present. Severely reduced systolic function with a visually estimated EF of 10 -15%. Diastolic dysfunction. Elevated left ventricular filling pressure.Right VentricleRight ventricle is moderately dilated. Moderately reduced systolic function.Left AtriumLeft atrium is moderately dilated.Right AtriumRight atrium is mildly dilated.Mitral ValveMild mitral annular calcification. Moderate to severe transvalvular regurgitation with a posterolateral eccentrically directed jet.Tricuspid ValveTricuspid valve structure is normal. Mild to moderate transvalvular regurgitation. Insufficient tricuspid regurgitation jet to estimate RVSP . RA pressure is 5-10 mmHg.Aortic ValveAortic valve opens well. Mildly calcified cusps. Mild transvalvular regurgitation.Pulmoni c ValveNot well visualized.Ascending AortaNormal sized aortic root.PericardiumNo pericardial effusion.Study DetailsStudy quality was adequate. A complete echocardiogram was performed using 2D, color flow Doppler and spectral Doppler. 3 mL of Optison ultrasound enhancing agent used. [facility] GLUCOSE (AUTOMATED)2024-03-24 22:13:22* Test Item Value Reference Range Interpretation Comme nts POCT GLU (test code = 7598532721) 185 mg/dL 70-110 H Lab Interpretation (test cod e = 59054-6) Abnormal [facility] GLUCOSE (AUTOMATED)2024-03-24 22:13:22* Test Item Value Reference Range Interpretation Comme nts POCT GLU (test code = 2657577550) 185 mg/dL 70-110 H Lab Interpretation (test cod e = 72287-4) Abnormal [facility] GLUCOSE (AUTOMATED)2024-03-24 22:13:22* Test Item Value Reference Range Interpretation Comme nts POCT GLU (test code = 2135976429) 185 mg/dL 70-110 H Lab Interpretation (test cod e = 45420-7) Abnormal [facility] GLUCOSE (AUTOMATED)2024-03-24 12:46:46* Test Item Value Reference Range Interpretation Comme nts POCT GLU (test code = 4589843030) 140 mg/dL 70-110 H Lab Interpretation (test cod e = 28176-5) Abnormal [facility] GLUCOSE (AUTOMATED)2024-03-24 12:46:46* Test Item Value Reference Range Interpretation Comme nts POCT GLU (test code = 8062043446) 140 mg/dL 70-110 H Lab Interpretation (test cod e = 64823-1) Abnormal [facility] GLUCOSE (AUTOMATED)2024-03-24 12:46:46* Test Item Value Reference Range Interpretation Comme nts POCT GLU (test code = 0857973801) 140 mg/dL 70-110 H Lab Interpretation (test cod e = 70299-3) Abnormal [facility] GLUCOSE (AUTOMATED)2024-03-24 03:29:53* Test Item Value Reference Range Interpretation Comme nts POCT GLU (test code = 5682918408) 192 mg/dL 70-110 H Lab Interpretation (test cod e = 37349-7) Abnormal [facility] GLUCOSE (AUTOMATED)2024-03-24 03:29:53* Test Item Value Reference Range Interpretation Comme nts POCT GLU (test code = 9495959380) 192 mg/dL 70-110 H Lab Interpretation (test cod e = 04156-9) [facility]24 03:29:53* Test Item Value Reference Range Interpretation Comme nts POCT GLU (test code = 5599185325) 192 mg/dL 70-110 H Lab Interpretation (test cod e = 74550-9) [facility] 02:45:31* Test Item Value Reference Range Interpretation Comme nts POCT GLU (test code = 8738358536) 165 mg/dL 70-110 H Lab Interpretation (test cod e = 46938-4) Abnormal [facility] GLUCOSE (AUTOMATED)2024-03-24 02:45:31* Test Item Value Reference Range Interpretation Comme nts POCT GLU (test code = 3225282290) 165 mg/dL 70-110 H Lab Interpretation (test cod e = 62041-2) Abnormal [facility] GLUCOSE (AUTOMATED)2024-03-24 02:45:31* Test Item Value Reference Range Interpretation Comme nts POCT GLU (test code = 8688862363) 165 mg/dL 70-110 H Lab Interpretation (test cod e = 68683-3) Abnormal [facility] GLUCOSE (AUTOMATED)2024-03-24 01:27:49* Test Item Value Reference Range Interpretation Comme nts POCT GLU (test code = 8698754918) 173 mg/dL 70-110 H Lab Interpretation (test cod e = 72427-9) Abnormal [facility] GLUCOSE (AUTOMATED)2024-03-24 01:27:49* Test Item Value Reference Range Interpretation Comme nts POCT GLU (test code = 4738985132) 173 mg/dL 70-110 H Lab Interpretation (test cod e = 85835-0) Abnormal [facility] GLUCOSE (AUTOMATED)2024-03-24 01:27:49* Test Item Value Reference Range Interpretation Comme nts POCT GLU (test code = 9197353076) 173 mg/dL 70-110 H Lab Interpretation (test cod e = 47656-6) Abnormal [facility] GLUCOSE (AUTOMATED)2024-03-23 23:28:52* Test Item Value Reference Range Interpretation Comme nts POCT GLU (test code = 7372149962) 158 mg/dL 70-110 H Lab Interpretation (test cod e = 20076-4) Abnormal [facility] GLUCOSE (AUTOMATED)2024-03-23 23:28:52* Test Item Value Reference Range Interpretation Comme nts POCT GLU (test code = 1494724391) 158 mg/dL 70-110 H Lab Interpretation (test cod e = 22411-3) Abnormal [facility] GLUCOSE (AUTOMATED)2024-03-23 23:28:52* Test Item Value Reference Range Interpretation Comme nts POCT GLU (test code = 9437461376) 158 mg/dL 70-110 H Lab Interpretation (test cod e = 89074-8) [facility]normal [facility]oglobin (A1C)2024-03-23 22:54:52* Test Item Value Reference Range Interpretation Comme nts HGB A1C (test code = 4548-4) 9.1 % 4.0-5.7 H ALCIDES (test code = ALCIDES) Reference RangesNormal: <5.7%Prediabetes: 5.7 - 6.4%Diabetes: > 6.5% Lab Interpretation (test code = 23460-5) Abnormal [facility] (A1C)2024-03-23 22:54:52* Test Item Value Reference Range Interpretation Comme nts HGB A1C (test code = 4548-4) 9.1 % 4.0-5.7 H ALCIDES (test code = ALCIDES) Reference RangesNormal: <5.7%Prediabetes: 5.7 - 6.4%Diabetes: > 6.5% Lab Interpretation (test code = 13273-9) [facility]normal [facility] (A1C)2024-03-23 22:54:52* Test Item Value Reference Range Interpretation Comme nts HGB A1C (test code = 4548-4) 9.1 % 4.0-5.7 H ALCIDES (test code = ALCIDES) Reference RangesNormal: <5.7%Prediabetes: 5.7 - 6.4%Diabetes: > 6.5% Lab Interpretation (test code = 88772-5) [facility]normal [facility] (A1C)2024-03-23 22:54:52* Test Item Value Reference Range Interpretation Comme [facility] HGB A1C (test code = 4548-4) 9.1 % 4.0-5.7 H ALCIDES (test code = ALCIDES) Reference RangesNormal: <5.7%Prediabetes: 5.7 - 6.4%Diabetes: > 6.5% Lab Interpretation (test code = 04066-9) [facility]normal [facility] 1 [id number] 21:06:31Chest X-Ray Indication: sob ? Technique: Frontal view(s) of the chest submitted for interpretation.Comparison: March 03, 2024 RL: Ordering Clinician: SAYRA FOX Technical Quality: Adequate Findings: Small bilateral pleural effusions. ?No acute mediastinal abnormality. ?Noacute fractures.[facility] CHEST 1 [id number] 21:06:31Chest X-Ray Indication: sob ? Technique: Frontal view(s) of the chest submitted for interpretation. Comparison: March 03, 2024 RL: Ordering Clinician: SAYRA FOX Technical Quality: Adequate Findings: Small bilateral pleural effusions. ?No acute mediastinal abnormality. ?Noacute fractures.[facility] [id number] 21:06:31Chest X-Ray Indication: sob ? Technique: Frontal view(s) of the chest submitted for interpretation.Comparison: March 03, 2024 RL: Ordering Clinician: SAYRA FOX Technical Quality: Adequate Findings: Small bilateral pleural effusions. ?No acute mediastinal abnormality. ?Noacute fractures.[facility] [id number] 20:29:56* Test Item Value Reference Range Interpretation Comme [facility] TROPONIN I (test code = 8198578532) 0.025 ng/mL <=0.034 ALCIDES (test code = ALCIDES) Reference (Normal) Range (defined by the 99th percentile reference limit): <= 0.034 ng/mL Note: Cardiac troponin begins to rise 3-4 hours after the onset of ischemia. Repeat in 4-6 hours if the sample was drawn within 3-4 hours of the onset of the symptom and found normal. Diagnosis of myocardial injury is made with acute changes in cTn concentrations with at least one serial sample above the 99th percentile upper reference limit (URL), taken together with the patient's clinical presentation. Biotin has been reported to cause a negative bias, interpret results relative to patient's use of biotin. Lab Interpretation (test code = 99468-5) Normal [facility] [id number] 20:29:56* Test Item Value Reference Range Interpretation Comme nts TROPONIN I (test code = 6258836272) 0.025 ng/mL <=0.034 ALCIDES (test code = ALCIDES) Reference (Normal) Range (defined by the 99th percentile reference limit): <= 0.034 ng/mL Note: Cardiac troponin begins to rise 3-4 hours after the onset of ischemia. Repeat in 4-6 hours if the sample was drawn within 3-4 hours of the onset of the symptom and found normal. Diagnosis of myocardial injury is made with acute changes in cTn concentrations with at least one serial sample above the 99th percentile upper reference limit (URL), taken together with the patient's clinical presentation. Biotin has been reported to cause a negative bias, interpret results relative to patient's use of biotin. Lab Interpretation (test code = 92504-6) Normal [facility] [id number] 20:29:56* Test Item Value Reference Range Interpretation Comme nts TROPONIN I (test code = 9008778430) 0.025 ng/mL <=0.034 ALCIDES (test code = ALCIDES) Reference (Normal) Range (defined by the 99th percentile reference limit): <= 0.034 ng/mL Note: Cardiac troponin begins to rise 3-4 hours after the onset of ischemia. Repeat in 4-6 hours if the sample was drawn within 3-4 hours of the onset of the symptom and found normal. Diagnosis of myocardial injury is made with acute changes in cTn concentrations with at least one serial sample above the 99th percentile upper reference limit (URL), taken together with the patient's clinical presentation. Biotin has been reported to cause a negative bias, interpret results relative to patient's use of biotin. Lab Interpretation (test code = 80110-9) [facility] [id number] 20:29:56* Test Item Value Reference Range Interpretation Comme nts TROPONIN I (test code = 1394298214) 0.025 ng/mL <=0.034 ALCIDES (test code = ALCIDES) Reference (Normal) Range (defined by the 99th percentile reference limit): <= 0.034 ng/mL Note: Cardiac troponin begins to rise 3-4 hours after the onset of ischemia. Repeat in 4-6 hours if the sample was drawn within 3-4 hours of the onset of the symptom and found normal. Diagnosis of myocardial injury is made with acute changes in cTn concentrations with at least one serial sample above the 99th percentile upper reference limit (URL), taken together with the patient's clinical presentation. Biotin has been reported to cause a negative bias, interpret results relative to patient's use of biotin. Lab Interpretation (test code = 65901-6) Normal [facility] [id number] 20:27:40* Test Item Value Reference Range Interpretation Comme nts NT-proBNP (test code = 06652-0) 4300 pg/mL <=125 H ALCIDES (test code = ALCIDES) Positive: Heart Failure Likely Lab Interpretation (test code = 22774-4) Abnormal [facility] [id number] 20:27:40* Test Item Value Reference Range Interpretation Comme nts NT-proBNP (test code = 85590-5) 4300 pg/mL <=125 H ALCIDES (test code = ALCIDES) Positive: Heart Failure Likely Lab Interpretation (test code = 32180-9) Abnormal [facility] [id number] 20:27:40* Test Item Value Reference Range Interpretation Comme nts NT-proBNP (test code = 31865-2) 4300 pg/mL <=125 H ALCIDES (test code = ALCIDES) Positive: Heart Failure Likely Lab Interpretation (test code = 47439-4) Abnormal [facility]. METABOLIC PANEL (32426)2024-03-23 20:18:58* Test Item Value Reference Range Interpretation Comme nts NA (test code = 6304881414) 139 mmol/L 135-145 K (test code = 0518500653) 4.0 mmol/L 3.5-5.0 CL (test code = 1081080788) 98 mmol/L 98-108 CO2 TOTAL (test code = 1533922247) 30 mmol/L 23-31 AGAP (test code = 8989043341) 11 2-16 BUN (test code = 5732223023) 31 mg/dL 7-23 H GLUCOSE (test code = 0436607963) 163 mg/dL 70-110 H CREATININE (test code = 2160-0) 1.31 mg/dL 0.60-1.25 H TOTAL BILI (test code = 5816924078) 2.0 mg/dL 0.1-1.1 H CALCIUM (test code = 2194874211) 9.0 mg/dL 8.6-10.6 T PROTEIN (test code = 1233460980) 7.7 g/dL 6.3-8.2 ALBUMIN (test code = 4570985073) 4.1 g/dL 3.5-5.0 ALK PHOS (test code = 6651064343) 193 U/L 34-122 H ALTv (test code = 1742-6) 19 U/L 5-50 AST(SGOT) (test code = 4952797067) 35 U/L 13-40 eGFR (test code = 64862-7) 63.5 mL/min/1.73m2 CKD-EPI eGFR (2020). Assuming creatinine has been stable day-to-day for at least three months, the eGFR indicates Category G2 (60 - 89 mL/min/1.73 m2) Lab Interpretation (test code = 33248-9) [facility]normal [facility]esium2024-04-28 20:18:58* Test Item Value Reference Range Interpretation Comme nts MAGNESIUM (test code = 7348308952) 2.2 mg/dL 1.7-2.4 Lab Interpretation (test cod e = 97719-4) Normal [facility] METABOLIC PANEL (56936)2024-03-23 20:18:58* Test Item Value Reference Range Interpretation Comme nts NA (test code = 6566859297) 139 mmol/L 135-145 K (test code = 6129208256) 4.0 mmol/L 3.5-5.0 CL (test code = 2453434709) 98 mmol/L 98-108 CO2 TOTAL (test code = 4734493100) 30 mmol/L 23-31 AGAP (test code = 4057395172) 11 2-16 BUN (test code = 4007714686) 31 mg/dL 7-23 H GLUCOSE (test code = 9941911512) 163 mg/dL 70-110 H CREATININE (test code = 2160-0) 1.31 mg/dL 0.60-1.25 H TOTAL BILI (test code = 0330525831) 2.0 mg/dL 0.1-1.1 H CALCIUM (test code = 7677536443) 9.0 mg/dL 8.6-10.6 T PROTEIN (test code = 9998485727) 7.7 g/dL 6.3-8.2 ALBUMIN (test code = 0952915595) 4.1 g/dL 3.5-5.0 ALK PHOS (test code = 4938137157) 193 U/L 34-122 H ALTv (test code = 1742-6) 19 U/L 5-50 AST(SGOT) (test code = 3364315688) 35 U/L 13-40 eGFR (test code = 04766-9) 63.5 mL/min/1.73m2 CKD-EPI eGFR (2020). Assuming creatinine has been stable day-to-day for at least three months, the eGFR indicates Category G2 (60 - 89 mL/min/1.73 m2) Lab Interpretation (test code = 68620-4) [facility]2024-[facility]-28 20:18:58* Test Item Value Reference Range Interpretation Comme nts MAGNESIUM (test code = 9632824742) 2.2 mg/dL 1.7-2.4 Lab Interpretation (test cod e = 85530-2) Normal [facility] METABOLIC PANEL (06385)2024-03-23 20:18:58* Test Item Value Reference Range Interpretation Comme nts NA (test code = 0264383243) 139 mmol/L 135-145 K (test code = 3557635717) 4.0 mmol/L 3.5-5.0 CL (test code = 6474758851) 98 mmol/L 98-108 CO2 TOTAL (test code = 9185506115) 30 mmol/L 23-31 AGAP (test code = 0737107338) 11 2-16 BUN (test code = 3649816821) 31 mg/dL 7-23 H GLUCOSE (test code = 0239808557) 163 mg/dL 70-110 H CREATININE (test code = 2160-0) 1.31 mg/dL 0.60-1.25 H TOTAL BILI (test code = 7509869476) 2.0 mg/dL 0.1-1.1 H CALCIUM (test code = 2487219751) 9.0 mg/dL 8.6-10.6 T PROTEIN (test code = 8242364988) 7.7 g/dL 6.3-8.2 ALBUMIN (test code = 3357451690) 4.1 g/dL 3.5-5.0 ALK PHOS (test code = 7954815402) 193 U/L 34-122 H ALTv (test code = 1742-6) 19 U/L 5-50 AST(SGOT) (test code = 3586761645) 35 U/L 13-40 eGFR (test code = 35789-8) 63.5 mL/min/1.73m2 CKD-EPI eGFR (2020). Assuming creatinine has been stable day-to-day for at least three months, the eGFR indicates Category G2 (60 - 89 mL/min/1.73 m2) Lab Interpretation (test code = 66573-7) [facility]normal [facility] 20:18:58* Test Item Value Reference Range Interpretation Comme nts MAGNESIUM (test code = 3224009536) 2.2 mg/dL 1.7-2.4 Lab Interpretation (test cod e = 31962-6) Normal [facility] WITH [id number] 19:59:36* Test Item Value Reference Range Interpretation Comme nts WBC (test code = 6690-2) 11.63 4.20-10.70 H RBC (test code = 789-8) 5.98 4.26-5.52 H HGB (test code = 718-7) 14.0 g/dL 12.2-16.4 HCT (test code = 4544-3) 48.0 % 38.4-49.3 MCV (test code = 787-2) 80.3 fL 81.7-95.6 L MCH (test code = 785-6) 23.4 pg 26.1-32.7 L MCHC (test code = 786-4) 29.2 g/dL 31.2-35.0 L RDW-SD (test code = 10870-3) 55.8 fL 38.5-51.6 H RDW-CV (test code = 788-0) 20.5 % 12.1-15.4 H PLT (test code = 777-3) 354 150-328 H MPV (test code = 62677-8) 10.2 fL 9.8-13.0 NRBC/100 WBC (test code = 4397244455) 0.0 0.0-10.0 NRBC x10^3 (test code = 6507843152) See_Comment [Automated messa ge] The system which generated this result transmitted reference range: 10*3/?L. The reference range was not used to interpret this result as normal/abnormal. GRAN MAT (NEUT) % (test code = 770-8) 79.0 % IMM GRAN % (test code = 2594164717) 0.40 % LYMPH % (test code = 736-9) 9.2 % MONO % (test code = 5905-5) 9.5 % EOS % (test code = 713-8) 1.4 % BASO % (test code = 706-2) 0.5 % GRAN MAT x10^3(ANC) (test code = 3635384386) 9.18 10*3/uL 1.99-6.95 H IMM GRAN x10^3 (test code = 7166049699) 0.05 10*3/uL 0.00-0.06 LYMPH x10^3 (test code = 731-0) 1.07 10*3/uL 1.09-3.23 L MONO x10^3 (test code = 742-7) 1.11 10*3/uL 0.36-1.02 H EOS x10^3 (test code = 711-2) 0.16 10*3/uL 0.06-0.53 BASO x10^3 (test code = 704-7) 0.06 10*3/uL 0.01-0.09 Lab Interpretation (test code = 03154-6) Abnormal [facility] WITH [id number] 19:59:36* Test Item Value Reference Range Interpretation Comme nts WBC (test code = 6690-2) 11.63 4.20-10.70 H RBC (test code = 789-8) 5.98 4.26-5.52 H HGB (test code = 718-7) 14.0 g/dL 12.2-16.4 HCT (test code = 4544-3) 48.0 % 38.4-49.3 MCV (test code = 787-2) 80.3 fL 81.7-95.6 L MCH (test code = 785-6) 23.4 pg 26.1-32.7 L MCHC (test code = 786-4) 29.2 g/dL 31.2-35.0 L RDW-SD (test code = 05580-5) 55.8 fL 38.5-51.6 H RDW-CV (test code = 788-0) 20.5 % 12.1-15.4 H PLT (test code = 777-3) 354 150-328 H MPV (test code = 64068-5) 10.2 fL 9.8-13.0 NRBC/100 WBC (test code = 6854789374) 0.0 0.0-10.0 NRBC x10^3 (test code = 3685819989) See_Comment [Automated messa ge] The system which generated this result transmitted reference range: 10*3/?L. The reference range was not used to interpret this result as normal/abnormal. GRAN MAT (NEUT) % (test code = 770-8) 79.0 % IMM GRAN % (test code = 6040498065) 0.40 % LYMPH % (test code = 736-9) 9.2 % MONO % (test code = 5905-5) 9.5 % EOS % (test code = 713-8) 1.4 % BASO % (test code = 706-2) 0.5 % GRAN MAT x10^3(ANC) (test code = 7473316764) 9.18 10*3/uL 1.99-6.95 H IMM GRAN x10^3 (test code = 0455014757) 0.05 10*3/uL 0.00-0.06 LYMPH x10^3 (test code = 731-0) 1.07 10*3/uL 1.09-3.23 L MONO x10^3 (test code = 742-7) 1.11 10*3/uL 0.36-1.02 H EOS x10^3 (test code = 711-2) 0.16 10*3/uL 0.06-0.53 BASO x10^3 (test code = 704-7) 0.06 10*3/uL 0.01-0.09 Lab Interpretation (test code = 30812-5) Abnormal [facility] WITH [id number] 19:59:36* Test Item Value Reference Range Interpretation Comme nts WBC (test code = 6690-2) 11.63 4.20-10.70 H RBC (test code = 789-8) 5.98 4.26-5.52 H HGB (test code = 718-7) 14.0 g/dL 12.2-16.4 HCT (test code = 4544-3) 48.0 % 38.4-49.3 MCV (test code = 787-2) 80.3 fL 81.7-95.6 L MCH (test code = 785-6) 23.4 pg 26.1-32.7 L MCHC (test code = 786-4) 29.2 g/dL 31.2-35.0 L RDW-SD (test code = 18502-8) 55.8 fL 38.5-51.6 H RDW-CV (test code = 788-0) 20.5 % 12.1-15.4 H PLT (test code = 777-3) 354 150-328 H MPV (test code = 75118-6) 10.2 fL 9.8-13.0 NRBC/100 WBC (test code = 9124243928) 0.0 0.0-10.0 NRBC x10^3 (test code = 1659062086) See_Comment [Automated messa ge] The system which generated this result transmitted reference range: 10*3/?L. The reference range was not used to interpret this result as normal/abnormal. GRAN MAT (NEUT) % (test code = 770-8) 79.0 % IMM GRAN % (test code = 3177779149) 0.40 % LYMPH % (test code = 736-9) 9.2 % MONO % (test code = 5905-5) 9.5 % EOS % (test code = 713-8) 1.4 % BASO % (test code = 706-2) 0.5 % GRAN MAT x10^3(ANC) (test code = 6478126508) 9.18 10*3/uL 1.99-6.95 H IMM GRAN x10^3 (test code = 1150175344) 0.05 10*3/uL 0.00-0.06 LYMPH x10^3 (test code = 731-0) 1.07 10*3/uL 1.09-3.23 L MONO x10^3 (test code = 742-7) 1.11 10*3/uL 0.36-1.02 H EOS x10^3 (test code = 711-2) 0.16 10*3/uL 0.06-0.53 BASO x10^3 (test code = 704-7) 0.06 10*3/uL 0.01-0.09 Lab Interpretation (test code = 32733-2) [facility]normal [facility]OMEN PELVIS W [id number] 22:35:28ORDERING PROVIDER: RONNELL SHELL HISTORY: Hernia, complicated TECHNIQUE: CT images of the abdomen and pelvis performed afteradministration of IV contrast. Coronal and sagittal reformats generated. CTperformed according to ALARA (as low as reasonably achievable) principles. TECHNICAL LIMITATIONS: None. COMPARISON: 05/21/2023. FINDINGS: Included lung bases: Partially imaged small bilateral pleural effusionswith mild adjacent lower lobe atelectasis. Groundglass opacities and smoothinterlobular septal thickening in the visualized lungs, consistent withpulmonary edema. Partially imaged heart is mildly enlarged. Liver: Unremarkable. Some reflux of intravenous contrast into the hepaticveins. Gallbladder and Bile Ducts: Rim calcified stone in the gallbladder ispartially obscured by motion. No gallbladder distention. Some ascitessurrounding the gallbladder. No definite abnormal bile duct dilation. Pancreas: Unremarkable. Spleen: Unremarkable. Adrenals: Unremarkable. Kidneys: Unremarkable. GI Tract: Somewhat suboptimal evaluation due to presence of ascites. Nobowel obstruction. Mild colonic diverticulosis without evidence of acutediverticulitis. Normal caliber appendix which is partially surrounded byascites. Pelvis: Nonenlarged prostate. Unremarkable urinary bladder. Mesentery/Peritoneum: No free air. Fluid: Small to moderate volume ascites. Lymph nodes: No pathologic adenopathy. Vasculature: Scattered atherosclerotic vascular calcifications. Noabdominal aortic aneurysm. Bones: No acute osseous abnormality. Multilevel lumbar spondylosis. 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 Soft tissues: Diffuse subcutaneous edema/anasarca, including thickened andedematous scrotal campbell. Bilateral inguinal hernias containing fat andascites, slightly more pronounced on the right. There is a smallfat-containi ng umbilical hernia.[facility] 1 [id number] 20:38:44EXAM: XR CHEST 1 VW COMPARISON: 01/19/2023 HISTORY: shortness of breath FINDINGS: Lungs: The lungs are adequately expanded. Mild vascularcongestion/interstitial prominence, is more prominent than in the previousstudy. Prior small bilateral pleural effusions are also slightly larger. Heart/Mediastinum: Stable cardiomegaly. Indistinct hilar regions. Bones and soft tissues: No osseous abnormality is visualized.[facility] POCT ACT LOW [id number] 18:02:15* Test Item Value Reference Range Interpretation Comme nts ACTLR (test code = 2717002148) 299 See_Comment H [Automated messa Method] The system which generated this result transmitted reference range: 89 - 169 Seconds. The reference range was not used to interpret this result as normal/abnormal. Lab Interpretation (test code = 28029-5) [facility]normal [facility] [id number] 18:02:15* Test Item Value Reference Range Interpretation Comme nts ACTLR (test code = 3281138189) 299 See_Comment H [Automated messa Method] The system which generated this result transmitted reference range: 89 - 169 Seconds. The reference range was not used to interpret this result as normal/abnormal. Lab Interpretation (test code = 44365-4) [facility]normal [facility]OW [id number] 18:02:15* Test Item Value Reference Range Interpretation Comme nts ACTLR (test code = 7323860638) 299 See_Comment H [Automated messa ge] The system which generated this result transmitted reference range: 89 - 169 Seconds. The reference range was not used to interpret this result as normal/abnormal. Lab Interpretation (test code = 97956-8) Abnormal [facility] ACT LOW [id number] 18:02:15* Test Item Value Reference Range Interpretation Comme nts ACTLR (test code = 2937713221) 299 See_Comment H [Automated messa ge] The system which generated this result transmitted reference range: 89 - 169 Seconds. The reference range was not used to interpret this result as normal/abnormal. Lab Interpretation (test code = 33817-2) Abnormal [facility] GLUCOSE (AUTOMATED)2023-01-21 13:42:28* Test Item Value Reference Range Interpretation Comme [facility] POCT GLU (test code = 0579067823) 166 mg/dL 70-110 H Lab Interpretation (test cod e = 23857-4) Abnormal [facility] GLUCOSE (AUTOMATED)2023-01-21 13:42:28* Test Item Value Reference Range Interpretation Comme nts POCT GLU (test code = 9611485408) 166 mg/dL 70-110 H Lab Interpretation (test cod e = 51517-2) Abnormal [facility] METABOLIC PANEL (NA, K, CL, CO2, GLUCOSE, BUN, CREATININE, CA)2023-01-20 12:25:19* Test Item Value Reference Range Interpretation Comme [facility] NA (test code = 4073259977) 142 mmol/L 135-145 K (test code = 3423017776) 3.7 mmol/L 3.5-5.0 Slight hemolysis CL (test code = 9472415906) 101 mmol/L 98-108 CO2 TOTAL (test code = 7942917276) 33 mmol/L 23-31 H AGAP (test code = 4764756112) 8 2-16 BUN (test code = 9574162799) 17 mg/dL 7-23 Slight hemolysis GLUCOSE (test code = 8365816416) 146 mg/dL 70-110 H CREATININE (test code = 6091010344) 1.25 mg/dL 0.60-1.25 CALCIUM (test code = 9082915841) 8.9 mg/dL 8.6-10.6 eGFR (test code = 9364739122) 59.7 mL/min/1.73m2 ALCIDES (test code = ALCIDES) [...] imaging tests). Lab Interpretation (test code = 87841-8) [facility]normal [facility]MAG[facility]IUM2023-02-25 12:25:19* Test Item Value Reference Range Interpretation Comme nts MAGNESIUM (test code = 4073605052) 2.0 mg/dL 1.7-2.4 Lab Interpretation (test cod e = 51349-3) Normal [facility] METABOLIC PANEL (NA, K, CL, CO2, GLUCOSE, BUN, CREATININE, CA)2023-01-20 12:25:19* Test Item Value Reference Range Interpretation Comme nts NA (test code = 6414267410) 142 mmol/L 135-145 K (test code = 1142292220) 3.7 mmol/L 3.5-5.0 Slight hemolysis CL (test code = 0359548280) 101 mmol/L 98-108 CO2 TOTAL (test code = 0754790274) 33 mmol/L 23-31 H AGAP (test code = 6717915595) 8 2-16 BUN (test code = 2794604670) 17 mg/dL 7-23 Slight hemolysis GLUCOSE (test code = 9438579000) 146 mg/dL 70-110 H CREATININE (test code = 1225424727) 1.25 mg/dL 0.60-1.25 CALCIUM (test code = 4598824127) 8.9 mg/dL 8.6-10.6 eGFR (test code = 7528535868) 59.7 mL/min/1.73m2 ALCIDES (test code = ALCIDES) [...] imaging tests). Lab Interpretation (test code = 89618-1) [facility] 12:25:19* Test Item Value Reference Range Interpretation Comme nts MAGNESIUM (test code = 4625061006) 2.0 mg/dL 1.7-2.4 Lab Interpretation (test cod e = 32882-7) Normal [facility] WITH [id number] 11:55:13* Test Item Value Reference Range Interpretation Comme nts WBC (test code = 6690-2) 9.58 See_Comment [Automated messa ge] The system which generated this result transmitted reference range: 4.20 - 10.70 10*3/?L. The reference range was not used to interpret this result as normal/abnormal. RBC (test code = 789-8) 5.09 See_Comment [Automated [employer] ge] The system which generated this result [...] g/dL 31.2-35.0 L RDW-SD (test code = 06387-1) 48.9 fL 38.5-51.6 RDW-CV (test code = 788-0) 16.0 % 12.1-15.4 H PLT (test code = 777-3) 238 See_Comment [Automated messa ge] The system which generated this result transmitted reference range: 150 - 328 10*3/?L. The reference range was not used to interpret this result as normal/abnormal. MPV (test code = 62655-5) 10.5 fL 9.8-13.0 NRBC/100 WBC (test code = 2413452764) 0.0 See_Comment [Automated [employer] ssage] The system which generated this result transmitted reference range: 0.0 - 10.0 /100 WBCs. The reference range was not used to interpret this result as normal/abnormal. NRBC x10^3 (test code = 4713129549) See_Comment [Automated messa ge] The system which generated this result transmitted reference range: 10*3/?L. The reference range was not used to interpret this result as normal/abnormal. GRAN MAT (NEUT) % (test code = 770-8) 65.0 % IMM GRAN % (test code = 0952754543) 0.50 % LYMPH % (test code = 736-9) 23.1 % MONO % (test code = 5905-5) 7.6 % EOS % (test code = 713-8) 3.4 % BASO % (test code = 706-2) 0.4 % GRAN MAT x10^3(ANC) (test code = 2938153371) 6.22 10*3/uL 1.99-6.95 IMM GRAN x10^3 (test code = 6100043935) 0.05 10*3/uL 0.00-0.06 LYMPH x10^3 (test code = 731-0) 2.21 10*3/uL 1.09-3.23 MONO x10^3 (test code = 742-7) 0.73 10*3/uL 0.36-1.02 EOS x10^3 (test code = 711-2) 0.33 10*3/uL 0.06-0.53 BASO x10^3 (test code = 704-7) 0.04 10*3/uL 0.01-0.09 Lab Interpretation (test code = 83568-1) Abnormal [facility] WITH [id number] 11:55:13* Test Item Value Reference Range Interpretation [...] g/dL 31.2-35.0 L RDW-SD (test code = 36386-2) 48.9 fL 38.5-51.6 RDW-CV (test code = 788-0) 16.0 % 12.1-15.4 H PLT (test code = 777-3) 238 See_Comment [Automated messa ge] The system which generated this result transmitted reference range: 150 - 328 10*3/?L. The reference range was not used to interpret this result as normal/abnormal. MPV (test code = 90771-8) 10.5 fL 9.8-13.0 NRBC/100 WBC (test code = 1250156223) 0.0 See_Comment [Automated me ssage] The system which generated this result transmitted reference range: 0.0 - 10.0 /100 WBCs. The reference range was not used to interpret this result as normal/abnormal. NRBC x10^3 (test code = 1639221512) See_Comment [Automated messa ge] The system which generated this result transmitted reference range: 10*3/?L. The reference range was not used to interpret this result as normal/abnormal. GRAN MAT (NEUT) % (test code = 770-8) 65.0 % IMM GRAN % (test code = 3960555423) 0.50 % LYMPH % (test code = 736-9) 23.1 % MONO % (test code = 5905-5) 7.6 % EOS % (test code = 713-8) 3.4 % BASO % (test code = 706-2) 0.4 % GRAN MAT x10^3(ANC) (test code = 9585282932) 6.22 10*3/uL 1.99-6.95 IMM GRAN x10^3 (test code = 4530849181) 0.05 10*3/uL 0.00-0.06 LYMPH x10^3 (test code = 731-0) 2.21 10*3/uL 1.09-3.23 MONO x10^3 (test code = 742-7) 0.73 10*3/uL 0.36-1.02 EOS x10^3 (test code = 711-2) 0.33 10*3/uL 0.06-0.53 BASO x10^3 (test code = 704-7) 0.04 10*3/uL 0.01-0.09 Lab Interpretation (test code = 23738-3) [facility]normal [facility]GLYCOSYLATED HEMOGLOBIN (A1C)2023-01-20 03:49:52* Test Item Value Reference Range Interpretation Comme nts HGB A1C (test code = 4548-4) 8.2 % 4.0-5.7 H ALCIDES (test code = ALCIDES) Reference RangesNormal: <5.7%Prediabetes: 5.7 - 6.4%Diabetes: > 6.5% Lab Interpretation (test code = 40768-6) [facility]normal [facility]OS[facility]ATED HEMOGLOBIN (A1C)2023-01-20 03:49:52* Test Item Value Reference Range Interpretation Comme nts HGB A1C (test code = 4548-4) 8.2 % 4.0-5.7 H ALCIDES (test code = ALCIDES) Reference RangesNormal: <5.7%Prediabetes: 5.7 - 6.4%Diabetes: > 6.5% Lab Interpretation (test code = 63802-3) [facility]normal [facility]MINAL [id number] 21:18:27* Test Item Value Reference Range Interpretation Comme nts NT-proBNP (test code = 1069728998) 2380 pg/mL <=125 H ALCIDES (test code = ALCIDES) Biotin has been reported to cause a negative bias, interpret results relative to patient's use of biotin. Lab Interpretation (test code = 31957-0) [facility]normal [facility]MINAL [id number] 21:18:27* Test Item Value Reference Range Interpretation Comme nts NT-proBNP (test code = 7458258786) 2380 pg/mL <=125 H ALCIDES (test code = ALCIDES) Biotin has been reported to cause a negative bias, interpret results relative to patient's use of biotin. Lab Interpretation (test code = 30503-7) Abnormal [facility] METABOLIC PANEL (NA, K, CL, CO2, GLUCOSE, BUN, CREATININE, CA)2023-01-19 19:12:00* Test Item Value Reference Range Interpretation Comme nts NA (test code = 1967524864) 140 mmol/L 135-145 K (test code = 3368519721) 3.9 mmol/L 3.5-5.0 CL (test code = 3720665362) 106 mmol/L 98-108 CO2 TOTAL (test code = 6592028304) 26 mmol/L 23-31 AGAP (test code = 6875786173) 8 2-16 BUN (test code = 7374613706) 12 mg/dL 7-23 GLUCOSE (test code = 2058018080) 97 mg/dL 70-110 CREATININE (test code = 2567670581) 1.11 mg/dL 0.60-1.25 CALCIUM (test code = 7083802776) 8.8 mg/dL 8.6-10.6 eGFR (test code = 3908764601) 68.5 mL/min/1.73m2 ALCIDES (test code = ALCIDES) [...] or urine or abnormalities in imaging tests). [facility] HospitalLIPID PAN[facility] (34551)(TOTAL CHOLESTEROL, TRIGLYCERIDES, HDL)2023-01-19 19:12:00* Test Item Value Reference Range Interpretation Comme nts CHOL (test code = 9469719289) 131 mg/dL 120-200 HDL (test code = 4016007571) 30 mg/dL >=40 L HDLC RATIO (test code = 4161271601) 4.4 <=5.0 TRIG (test code = 2454893236) 71 mg/dL 30-170 LDL CHOL (test code = 35322-9) 87 mg/dL <=160 VLDL (test code = 0143163050) 14 mg/dL 5-60 Lab Interpretation (test cod e = 59328-2) [facility]normal [facility] METABOLIC PAN[facility] (NA, K, CL, CO2, GLUCOSE, BUN, CREATININE, CA)2023-01-19 19:12:00* Test Item Value Reference Range Interpretation Comme nts NA (test code = 4901998313) 140 mmol/L 135-145 K (test code = 1333133626) 3.9 mmol/L 3.5-5.0 CL (test code = 4767821794) 106 mmol/L 98-108 CO2 TOTAL (test code = 6301617447) 26 mmol/L 23-31 AGAP (test code = 4984307125) 8 2-16 BUN (test code = 8209042015) 12 mg/dL 7-23 GLUCOSE (test code = 5294205256) 97 mg/dL 70-110 CREATININE (test code = 7639471872) 1.11 mg/dL 0.60-1.25 CALCIUM (test code = 6745327163) 8.8 mg/dL 8.6-10.6 eGFR (test code = 3603468420) 68.5 mL/min/1.73m2 ALCIDES (test code = ALCIDES) [...] or urine or abnormalities in imaging tests). [facility] HospitalLIP[facility] (83074)(TOTAL CHOLESTEROL, TRIGLYCERIDES, HDL)2023-01-19 19:12:00* Test Item Value Reference Range Interpretation Comme [facility] CHOL (test code = 2466098525) 131 mg/dL 120-200 HDL (test code = 0737600344) 30 mg/dL >=40 L HDLC RATIO (test code = 2173194256) 4.4 <=5.0 TRIG (test code = 8313261713) 71 mg/dL 30-170 LDL CHOL (test code = 31645-6) 87 mg/dL <=160 VLDL (test code = 5348283869) 14 mg/dL 5-60 Lab Interpretation (test cod e = 73956-1) [facility]normal [facility] HospitalProthrombin Time / [id number] 19:07:04* Test Item Value Reference Range Interpretation Comme [facility] PROTIME PATIENT (test code = 5964-2) 13.5 [...] the indications. Lab Interpretation (test code = 20185-8) [facility]normal [facility] HospitalProthrombin Time / [id number] 19:07:04* Test Item Value Reference Range Interpretation Comme [facility] PROTIME PATIENT (test code = 5964-2) 13.5 [...] the indications. Lab Interpretation (test code = 48008-2) [facility]normal [facility] WITH [id number] 18:51:36* Test Item Value Reference Range Interpretation Comme [facility] WBC (test code = 6690-2) 8.93 See_Comment [...] g/dL 31.2-35.0 L RDW-SD (test code = 95549-7) 49.2 fL 38.5-51.6 RDW-CV (test code = 788-0) 15.9 % 12.1-15.4 H PLT (test code = 777-3) 215 See_Comment [Automated messa ge] The system which generated this result transmitted reference range: 150 - 328 10*3/?L. The reference range was not used to interpret this result as normal/abnormal. MPV (test code = 46171-7) 10.8 fL 9.8-13.0 NRBC/100 WBC (test code = 9157134531) 0.0 See_Comment [Automated [employer] ssage] The system which generated this result transmitted reference range: 0.0 - 10.0 /100 WBCs. The reference range was not used to interpret this result as normal/abnormal. NRBC x10^3 (test code = 3361604183) See_Comment [Automated messa ge] The system which generated this result transmitted reference range: 10*3/?L. The reference range was not used to interpret this result as normal/abnormal. GRAN MAT (NEUT) % (test code = 770-8) 66.4 % IMM GRAN % (test code = 8656896448) 0.30 % LYMPH % (test code = 736-9) 22.2 % MONO % (test code = 5905-5) 7.8 % EOS % (test code = 713-8) 2.9 % BASO % (test code = 706-2) 0.4 % GRAN MAT x10^3(ANC) (test code = 8766085883) 5.92 10*3/uL 1.99-6.95 IMM GRAN x10^3 (test code = 3830173624) 0.03 10*3/uL 0.00-0.06 LYMPH x10^3 (test code = 731-0) 1.98 10*3/uL 1.09-3.23 MONO x10^3 (test code = 742-7) 0.70 10*3/uL 0.36-1.02 EOS x10^3 (test code = 711-2) 0.26 10*3/uL 0.06-0.53 BASO x10^3 (test code = 704-7) 0.04 10*3/uL 0.01-0.09 Lab Interpretation (test code = 39465-7) Abnormal [facility] WITH [id number] 18:51:36* Test Item Value Reference Range Interpretation Comme nts WBC (test code = 6690-2) 8.93 See_Comment [Automated [employer] ge] The system which generated this result transmitted reference range: 4.20 - 10.70 10*3/?L. The reference range was not used to interpret this result as normal/abnormal. RBC (test code = 789-8) 4.76 See_Comment [Automated [employer] ge] The system which generated this result [...] g/dL 31.2-35.0 L RDW-SD (test code = 76908-6) 49.2 fL 38.5-51.6 RDW-CV (test code = 788-0) 15.9 % 12.1-15.4 H PLT (test code = 777-3) 215 See_Comment [Automated messa ge] The system which generated this result transmitted reference range: 150 - 328 10*3/?L. The reference range was not used to interpret this result as normal/abnormal. MPV (test code = 81007-9) 10.8 fL 9.8-13.0 NRBC/100 WBC (test code = [id number]) 0.0 See_Comment [Automated [employer] ssage] The system which generated this result transmitted reference range: 0.0 - 10.0 /100 WBCs. The reference range was not used to interpret this result as normal/abnormal. NRBC x10^3 (test code = [id number]) See_Comment [Automated messa ge] The system which generated this result transmitted reference range: 10*3/?L. The reference range was not used to interpret this result as normal/abnormal. GRAN MAT (NEUT) % (test code = 770-8) 66.4 % IMM GRAN % (test code = 8739283479) 0.30 % LYMPH % (test code = 736-9) 22.2 % MONO % (test code = 5905-5) 7.8 % EOS % (test code = 713-8) 2.9 % BASO % (test code = 706-2) 0.4 % GRAN MAT x10^3(ANC) (test code = 2164742876) 5.92 10*3/uL 1.99-6.95 IMM GRAN x10^3 (test code = 5332690366) 0.03 10*3/uL 0.00-0.06 LYMPH x10^3 (test code = 731-0) 1.98 10*3/uL 1.09-3.23 MONO x10^3 (test code = 742-7) 0.70 10*3/uL 0.36-1.02 EOS x10^3 (test code = 711-2) 0.26 10*3/uL 0.06-0.53 BASO x10^3 (test code = 704-7) 0.04 10*3/uL 0.01-0.09 Lab Interpretation (test code = 70966-4) Abnormal [facility] [facility] History and Physical Notes Date/Time Note Provider Source 2023-07-06 11:21:13 7757-68-19Z31:21:13F ormatting of this note is different from the original.Interval H&P:I [...] proceed to the OR.Waqar Infante MD07/06/23 11:21 [facility] NOTEReason for Visit / Chief Complaint: Bilateral inguinal hernia History of Present Illness: Lb Miller is a 57 year old male with [...] History:Past Medical History: Diagnosis Date CAD in [place] artery Cardiomegaly CHF (congestive heart failure) Cholelithiasis [...] found for this visit on 07/06/23.Assessment: Lb Miller is a 57 year old male with [...] Dr. Dickinson is general anesthesiaR inguinal [place] [address]-2Xlyjaxb and physical [id number], [place]1.2.840.730624.1.13.104.2.7.2.8 67702OosyUistkiooIT1192-07-81D07:06:55H istory and physical noteTXT1.2.840.749354.1.13.104.2.7.2.72 7879|[id number] for patient ghfc48197-5Kvxszxl and physical ytqyVLXLV-CYBGQAKYNH-RDXYRODFQBNPUKR11 [address] StreetTXTX[address]5577555USU OTNXOJLBOZJVHIVBSVV3231-01-01Q70:06:551 .2.840.909448.1.72.3.15|1.2.840.057124. 1.13.104.2.7.2.727879_[id number] RAMON-SURGERY [facility] Notes Date/Time Note Provider Source 2024-05-22 16:54:14 8629-42-34E50:54:14 Patient left prior to discharge instructions/paperwork after getting dressing changed over pacemaker by provider today. 11481-6Fruqwsocz department GcsyMP1666-26-86V95:54:40Emergen y department NoteTXT1.2.840.651815.1.13.104.2. 7.2.768699|[id number] for patient efqt18232-4FhlwDXNPIHIQNUYMvyylcu ed C-CDA narrative text[address]TXTX[address] 972REPTFEYXDLAGEGHOXDNZWX1786-06- 27T16:54:401.2.840.563433.1.72.3. 15|1.2.840.519817.1.13.104.2.7.2. 727879_[id number] [facility] 2024-05-22 16:08:01 9712-38-22U74:08:01 Patient was here yesterday because he pulled his picc line out about 1-2 inches that supplies his milnirone infusion and he was requesting it be fixed and get dressing changes. Patty was here and reattached the stiches, I changed his PICC dressing and she made phone calls to make sure he understood to go to his appointment today to fix any other issues with it. He states he just left from there and they told him to come here. He also states that we were supposed to set him up with home health care. 73791-5Oumgitkez department Triage wjryCS6594-04-37J05:10:19[facility] Triage noteTXT1.2.840.952099.1.13.104.2. 7.2.485358|[id number] for patient ovor86559-1Aqjlmurin department NoteLNNARRATIVEFormatted C-CDA narrative [id number] MONTAÑO[address] AudhXsybwvijpBjdnelkuqQYUZ9567372 312CEKWNRBOQDWVNFRQPEFTTP8130-12- 27T16:10:191.2.840.294545.1.72.3. 15|1.2.840.899918.1.13.104.2.7.2. 727879_[id number] Gerard Costa RN [facility] 2024-05-22 15:59:06 5448-54-27N56:59:06 It looks like patient did go to the ER and the PICC line was noted to be minimally displaced and was fixed at that visit.He was late to his appointment with [facility] today and was not seen, he was instead triaged by the RN and sent to the ER instead because the RN was unsure if she was allowed to change dressing on the ICD, there was reportedly no PICC line issue today. 65618-0Ghgqfjdow encounter QatxBK8878-03-04H58:49:32Telephon e encounter NoteTXT1.2.840.567767.1.13.104.2. 7.2.975891|[id number] for patient htqx12021-3MiyfIZLXNBEAYUEKqyjtim ed C-CDA narrative textUT[address]TXTX[address] 875CYDLROXQMOKDKMEYZHHUKD8407-32- 27T16:49:321.2.840.246755.1.72.3. 15|1.2.840.282057.1.13.104.2.7.2. 727879_[id number] [facility] 2024-05-22 15:55:00 4818-45-90R99:55:00 Received patient in clinic requesting to have a dressing change done on a pace maker placement. Patient stated that he does not have home health.Called Veneer Grader Maricel Daily and left a detailed message regarding the patients concerns and needs. 78558-8Voopbcuxu encounter JjokTU8264-69-61A65:12:45Telephon e encounter NoteTXT1.2.840.506849.1.13.104.2. 7.2.175492|[id number] for patient llji58541-6AursYPYPYBINIODKbnpawv ed C-CDA narrative lqmu371249896Cufvo J Bunte RNUT[address]TXTX[address] 861PDQPGNTCJJKLDIGEBLGGDQ5742-48- 27T16:12:451.2.840.222119.1.72.3. 15|1.2.840.642972.1.13.104.2.7.2. 727879_[id number] Tami Clifford RN [facility] 2024-05-22 15:55:00 2509-85-62Q72:55:00 I personally placed a call to patient after he just left triage- he answered and said he was already in the ED and his vitals were being taken. Will follow up after ED. I read the ED note added thus far, and there's a discuss of home health. 09302-7Gucjlsduc encounter ApswAO3967-89-46N50:05:16Telephon e encounter NoteTXT1.2.840.388603.1.13.104.2. 7.2.366370|[id number] for patient zpjg49708-9GtwiCLVBHBFIHBLWytksis ed C-CDA narrative textUT[address] LhfrRyprdvtjpUrccljjruTOSE9635941 222BQNQEBOEKAJCXZKVZZXMXV6084-79- 27T17:05:161.2.840.603615.1.72.3. 15|1.2.840.160227.1.13.104.2.7.2. 727879_[id number] [facility] 2024-05-21 15:56:02 9274-98-91C19:56:02 Patient discharged to home. Patient given printed and verbal discharge instructions regarding diagnosis. Instructed to follow up with PCP. Patient verbalized understanding of instructions. Patient awake, alert, oriented, respirations even and unlabored, skin warm and dry, color appropriate for race. No adverse reaction to meds given in ER noted upon discharge. PIV removed. Discussed medications. Advised to seek medical attention for new/prolonged/worsening of symptoms, patient ambulated from unit with steady gait in no apparent distress. 89013-3Wyggfqnsk department LwbrPR1167-02-24Z88:56:07Emergen y department NoteTXT1.2.840.078559.1.13.104.2. 7.2.193108|[id number] for patient gzch82702-1RdttNKMQKEIQOXLQlfyjer ed C-CDA narrative textUT[address] WcosMevnumfevAtoaiehirESOA7880599 123XEGPDLCBQVPKLCQPRMBLEB5625-00- 26T15:56:071.2.840.010462.1.72.3. 15|1.2.840.070811.1.13.104.2.7.2. 727879_[id number] [facility] 2024-05-21 15:10:43 5823-70-61G36:10:43 Lb Schmidt Lucian has been contact for Post-Discharge Follow-Up from their recent Heart Failure admission.Hospital Discharge Date: 05/09/24ospital Location: [facility] the patient have a Post-Discharge Follow Up appointment: Yes Date: 05/22/24- PCP 06/03/24- Dr. Lake No - please schedule HFU appointment within 2 weeks of discharge1. Schedule to Heart Failure Nurse Practitioner within 2 weeks if seen by Heart Failure Team during recent admission2. If patient is NEW referral to Heart Failure (Not seen by Heart Failure Team during recent admission), patient will need to see Heart Failure Faculty-Expedite to Heart Failure nurse if needed to overbook to facultyDoes the patient have active insurance: Yes- [facility] [place] TDCJChart Reviewed:Seen by [facility] Team-Dr. Mathis.Referral placed to CardiologyMultiple attempts by Line Installer Trolley on 05/19 & 05/20 to schedule appointments.Letter mailed to patient to call and schedule.05/15/24- Telephone encounter- Nurse unable to reach patient.Admitted to ER at [facility] on 05/21/24 25400-1Hesizaaoa encounter OeaqDO5938-35-23U27:19:06Telephon e encounter NoteTXT1.2.840.258821.1.13.104.2. 7.2.026511|[id number] for patient usdu28867-7QhmhRVJQWYGVUUCNyezrpr ed C-CDA narrative inkd224461941Rlow E Plummer [address]TXTX[address] 313LVXOUBVAKGCSFNGKQUJIWL3507-11- 26T15:19:061.2.840.317661.1.72.3. 15|1.2.840.785760.1.13.104.2.7.2. 727879_[id number] Kyara Scherer [facility] 2024-05-21 13:03:37 5434-84-61S14:03:37 Patient reports that his picc line had one stitch break when his drip set to his milnirone got caught in wheel or electric scooter at [facility], or when he was working underneath his car. Dr. Kirk is plastic card grader cardroom. He had PICC line placed in [place] about one month ago. Also wants to know if he can get dressings changed here 23847-0Hbuatfnir department Triage efziON3115-04-04M74:05:53[facility] Triage noteTXT1.2.840.579859.1.13.104.2. 7.2.090293|[id number] for patient jaig79355-6Vdcicwhhs department NoteLNNARRATIVEFormatted C-CDA narrative [id number] M Leibee RN[address]TXTX[address] 283GXAFIHPUHXYPGOAANPOPIR4795-43- 26T13:05:531.2.840.110330.1.72.3. 15|1.2.840.990521.1.13.104.2.7.2. 727879_[id number] Gerard Costa RN [facility] 2024-05-20 13:45:02 8736-56-67Q44:45:02 Please review and advise.STERLING 03/03/24NOV 05/22/24-Shannon Alvarado 98768-3Jfeknnjxz encounter TwkpBT7428-37-71I39:46:10Telephon e encounter NoteTXT1.2.840.938208.1.13.104.2. 7.2.866287|[id number] for patient rglt39007-8OjqhXFKTVVGGHXWKsgqatb ed C-CDA narrative icpt597761292Ilxjs Flores [address] ChzvGmqtixfmoAzfjxooxvKGXK0113210 699HXNFSFUMYLNVVTCTEDZZWG6927-82- 25T13:46:101.2.840.880543.1.72.3. 15|1.2.840.540236.1.13.104.2.7.2. 727879_[id number] Jaye Moon LVN [facility] 2024-05-20 13:42:01 9222-42-45B71:42:01 Spoke to patient and advised him to go to the local ER to have PICC line assessed and redressed.Patient is having issues with care after having PICC line placed. HE is requesting follow up as he is needing HH to come out and maybe get social work referral placed as his heart is only working at 8%Please review and advise. 00282-5Pcaggzjll encounter UzykJO4014-14-19Y73:43:56Telephon e encounter NoteTXT1.2.840.512201.1.13.104.2. 7.2.780257|[id number] for patient ueec71799-2EnaqDYUFBVADCLRUymizsd ed C-CDA narrative rfaw663364447Aevkrir M Fisher [address]vdGalvestonGalvestonTXTX[address] 901EBYYWSNGPRNDRGDDWTTBQI2916-89- 25T13:43:561.2.840.616002.1.72.3. 15|1.2.840.298282.1.13.104.2.7.2. 727879_[id number] Sue Guerrero [facility] 2024-05-20 13:38:36 0736-81-10G92:38:36 Lb Miller is a 58 year old male and is calling and says his stiches on his picc line popped yesterday. He has a nurse appt on 05-22-24 to change his dressing on the picc line and isn't sure where he should go to get his stiches fixed.Informed pt he will need to go to the provider who placed the picc line and he states he got it done at [facility] in [place] and doesn't have a way to get there.Please advise.Future AppointmentsDate Time Provider Department Trosper05/22/2024 1:30 PM Nurse, Giovani Quigley ADBUTMF1 GIOVANI [facility]05/22/2024 3:00 PM Shannon Alvarado PA ADBUTMF1 [facility]OVANI [facility]06/03/2024 1:00 PM Danilo Mitchell MD [facility] [place] [address]-8Jaksfuhjc encounter RjmbJP5532-95-42E49:40:21Telephon e encounter NoteTXT1.2.840.231800.1.13.104.2. 7.2.013492|[id number] for patient omor88559-8KhlmLKKPOLDRHTUDtbpgra ed C-CDA narrative fadh469023657Mpxizgomr E [address]TXTX[address] 600EBGJCSNWDYKADBPUKIFGJR1269-85- 25T13:40:211.2.840.556624.1.72.3. 15|1.2.840.576776.1.13.104.2.7.2. 727879_[id number] Cristian Pittman [facility] 2024-05-20 11:43:55 3423-02-55F30:43:55Summary: Diabetes Education Follow Up 05/21/24 1143 call to Mr Miller Call not answered, message left. "This is Ritika with [facility] Diabetes Inpatient Education. I am calling to see how you are doing and how your blood sugars are going after hospital discharge. Please call me back at [phone]. Thank you."05/21/24 1145 call to Mrs La Velásquez listed as significant other answered. Mrs Velásquez stated she has not seen Mr Miller for a couple of months and that she is "no longer his significant other". 27500-4Fcfkflbai encounter CbkzBO5081-81-87Z57:48:53Telephon e encounter NoteTXT1.2.840.387144.1.13.104.2. 7.2.403551|[id number] for patient iiie88433-6IyquONYHGIPADPKLfmzbrf ed C-CDA narrative jlep940458243Tebxwo R Castillo [address]TXTX[address] 837UZZDTARNOZUSUREPYSUENG0158-13- 25T11:48:531.2.840.381273.1.72.3. 15|1.2.840.633005.1.13.104.2.7.2. 727879_[id number] Ritika Richards RN [facility] 2024-05-16 12:10:54 5000-65-74K22:10:54 [facility] unable to accept due to insurance.IP unable to accept, as they are unable to accept patients on IV cardiac medications, and are out of network with pt's insurance.[facility] does not have coverage for [place].[facility] does not accept pt's insurance. 11315-7Avzttcdnk encounter ZqlfKQ4713-54-08G22:04:50Telephon e encounter NoteTXT1.2.840.580714.1.13.104.2. 7.2.925079|[id number] for patient nwhl47562-6MsboTVHQJKHENVRFuhjmlw ed C-CDA narrative jbjo697081090Bfkcdou A Gaudet RN[address] XvnvXlozjeixrTwtyaneusCGMT3014852 372GHXNIBDOFMJTESZSPMVCFO7273-81- 21T17:04:501.2.840.384470.1.72.3. 15|1.2.840.303372.1.13.104.2.7.2. 727879_[id number] Nilton Cooley RN [facility] 2024-05-16 11:27:56 5513-77-49B50:27:56 CM received message from Inpt MYLA Vernon, RN stating pt has not heard from infusion clinic to schedule PICC line dressing changes. Reviewed referral, and referral shows they tried to contact pt and they were unable to reach him. CM called pt to discuss. States he called the Infusion clinic and was told to follow up with his PCP. Pt is upset, stating he was told he would have HH nurse come to his house to change dressings. Discussed with pt that Inpt MYLA was unable to find HH, and it was noted that pt would be moving after discharge. Pt states he is not moving soon.CM will try to secure HH for the patient. HH referrals faxed to [facility], [facility], [facility].Pt will keep his follow up appointments as scheduled on 05/22/2024. 81424-6Fnvvvhajy encounter VudsYI8375-63-08O55:33:09Telephon e encounter NoteTXT1.2.840.879970.1.13.104.2. 7.2.151617|[id number] for patient gjco39658-8NprqEXZICGTBESUPxmqipv ed C-CDA narrative lgad532058081Rxpqdrf A Gaudet [address]TX[address] 531MDFIZRYAPVFFQUDULJKXKI1147-62- 21T11:33:091.2.840.832996.1.72.3. 15|1.2.840.114895.1.13.104.2.7.2. 727879_[id number] Nilton Cooley RN [facility] 2024-05-16 11:00:26 6551-33-99S96:00:26 It looks like appointment was r/s to next week 05/22.Attempted to contact patient, message left.VM left to keep that appt. 69153-2Wmkvwwpga encounter ZdxrOZ6467-15-87J33:01:14Telephon e encounter NoteTXT1.2.840.203675.1.13.104.2. 7.2.434546|[id number] for patient zlza73576-0ApytGNRXNACJDYHSbzvtek ed C-CDA narrative vvkj037733821Fyyjfa A Reyes [address]TX[address] 530XVQJUZJARBEYDSMZRFZEXC7414-64- 21T11:01:141.2.840.404977.1.72.3. 15|1.2.840.988410.1.13.104.2.7.2. 727879_[id number] Gina Yusuf FIBER GLASS WORKER [facility] 2024-05-15 14:41:55 2338-85-63O08:41:55 Lb Miller is a 58 year old male patient calling to speak with nurse regarding PIC line and Pacemaker dressing changes needing to have someone come to his residence to change them. Please call [phone] signed by Maricel Morin at 05/15/2024 2:43 PM GIR89437-4Qbxdxxaff encounter ZxuqVS8979-30-96N71:43:41Telephon e encounter NoteTXT1.2.840.245919.1.13.104.2. 7.2.851328|[id number] for patient ahfz57861-1TianNWGSTEOAJWPEzzkkxa ed C-CDA narrative fozl470860400Vgnzv [address] UxulTogrrqypyCglhirokvYBBD6571238 988TXVPBBISYWKCHVLFBGGXAM5319-58- 20T14:43:411.2.840.565129.1.72.3. 15|1.2.840.792883.1.13.104.2.7.2. 727879_[id number] Maricel Morin [facility] 2024-05-15 11:29:12 3346-10-06T46:29:12Summary: Diabetes Education Follwo Up 05/15/24 1129 call to Mr Miller Call not answered, message left. "This is Ritika with [facility] Diabetes Inpatient Education. I am calling to see how you are doing and how your blood sugars are going after hospital discharge. Please call me back at [phone]. Thank you." 30024-5Ueyxqqevi encounter PpmfQA4402-55-50O65:30:30Telephon e encounter NoteTXT1.2.840.303789.1.13.104.2. 7.2.443144|[id number] for patient ctev85777-6TusiYSTLLHLOXTWSnbbnbl ed C-CDA narrative mukm657967540BroemjRitika Richards RN[address] YgzbDvypxpapeEjviwtlfjUFHL0730105 315YSGEHDSHUACFIYYRTZLUEV7850-29- 20T11:30:301.2.840.947114.1.72.3. 15|1.2.840.549258.1.13.104.2.7.2. 727879_[id number] Ritika Richards RN [facility] 2024-05-13 11:36:20 9994-03-74F42:36:20Summary: Diabetes Education Follow Up 05/13/24 1136 call to Mr Miller Call not answered, message left. "This is Ritika with [facility] Diabetes Inpatient Education. I am calling to see how you are doing and how your blood sugars are going after hospital discharge. Please call me back at [phone]. Thank you."[facility] Outpatient Scheduling contacted and PCP appointment made for Mr Miller according [facility] discharge instructions 1 week after hospital discharge. Soonest available 05/22/24 scheduled. Patient signed up for text messages per scheduling will receive notification of appointment. 79782-9Pfuayufyl encounter BelgUW0847-79-97E26:49:20Telephon e encounter NoteTXT1.2.840.710843.1.13.104.2. 7.2.315729|[id number] for patient bnxx74049-7PqolXJQJDJAQHMQDsxyyse ed C-CDA narrative advw421741259Ctqucy R Castillo RNUTMB[address] MsveZeipzyidyMcjkscgigMCEC2014121 950NOEMHITFWBUARYKAYUTEYV6641-85- 18T11:49:201.2.840.484915.1.72.3. 15|1.2.840.460552.1.13.104.2.7.2. 727879_[id number] Ritika Richards RN [facility] 2024-05-12 10:42:59 1964-76-79K67:42:59 TRANSITIONAL CARE MANAGEMENT ASSESSMENT4Angbhavinangelic MillerCgrqvqhgrp705865RXnfbgq Brayan Miller is a 58 year old /White male was admitted on 03/23/[address] He was discharged on 05/09/24 with discharge disposition of HR- Routine Discharge.Admitting Physician: Palmira Gillischarge Diagnosis: Acute decompensated HFrEF (10-15%) NYHA class 4/C, S/p Dual chamber ICD (05/06/24)Cardiogenic shock SCAI DNo linked episodesTCM Lsg-ljtu-bm-face outreach documentation:Discharge AssessmentChart Assessed: 05/12/24TCM Outreach Completed: 05/12/24Do you have a few minutes to speak with me about how you are doing at home?: Yes (Pt reports he is doing good.)Discharge InstructionsDo you understand your at-home instructions?: Yes (No questions at this time.)MedicationsHave you filled your prescriptions and do you have them in your home? : YesDo you know how to take your medications?: Yes (No questions.)SuppliesDid you receive applicable home medical supplies/equipment?: YesDo you understand how to use the medical supplies/equipment?: YesFollow Up AppointmentHas a follow up appointment been scheduled?: NoMay I assist with scheduling this appointment?: Unable to schedule-referred to HFU TeamDo you have any questions about your follow up appointments?: NoAre you able to get to your appointment? Who will be taking you?: No (Pt advised to check with his insurance for transportation benefit, and contact clinic once appt is scheduled if assistance is needed.)Home Health AssistanceHas the home health nurse contacted you since you've been home?: N/ASurvey - RecognitionIs there anything you would like to share about your recent hospitalization, or anyone you would like to recognize?: NoDo you have any suggestions for improvement?: NoDo you have any other questions or concerns at this time?: NoFuture Appointments:Future AppointmentsProvider Department Dept Phone06/03/2024 1:00 PM Danilo Mitchell MD [facility] [phone] you have any questions about your diagnosis? NoReview reason for hospitalization and diagnosis: Acute decompensated HFrEF (10-15%) NYHA class 4/C, S/p Dual chamber ICD (05/06/24)Cardiogenic shock SCAI DAre you having any worsening symptoms? NoDo you know what symptoms to watch for, and when to call your doctor? Yes*Sudden weight gain (more than 3 pounds in 1 day or 5 pounds in 1 week)* Trouble breathing at night, especially when you lie down (waking up short of breath, needing more pillows to breathe)* New or increased swelling of your legs, feet, ankles, or abdomen (belly)* Shortness of breath at rest* Frequent coughing that doesn't go away* Feeling much more tired than usual, with simple activity* Irregular or rapid heartbeat* Weakness or lightheadednessPlease give the patient contact numbers for our HF clinic or Discharging MD (Document contact information provided): [phone] (BEAT)Do you understand your discharge instructions? YesCan you explain your Fluid restrictions? YesExample: 1.5L total fluid/24 hr-Specify patient's restriction: Keep the fluid intake to under 2000ml a dayAssess patient's understanding of what happens if they do not follow this restriction: review s/s of worsening heart failureEmphasize importance of adherence: YesCan you explain your low sodium restriction? YesExample: 2gm/day-Specify patient's restriction:Keep the sodium (salt) intake to under 2000mg a dayAssess patient's understanding of what happens if they do not follow this restriction: review s/s of worsening heart failureEmphasize importance of adherence: YesAre you engaged in physical activity? YesEncourage/Educate (Refer to discharge instructions for activity): YesWere you able to pick pulling machine operator all of your medications? YesDo you understand how to take your medications?YesStress importance of taking all medications as prescribed and address any questions: YesHas HF follow up appointment been scheduled? NoMay I assist with scheduling this appointment? YesDo you have any questions about your follow up appointments? NoStress importance of attending this appointment. YesIf for some reason appointment with HF Clinic is not within 7 days, please notify Nurse Program Coordinators and document outcome: E-mail sentDo you have transportation to your follow up appointments? NoHas the home health nurse contacted you since you've been home? N/AEnsure they have contact info for [employer]:Have you received your DME? Yes N/ADo you have a scale? NoEducate on daily weights, dry weight, weight log and what to do if they gain weight? YesDo you have a BP/HR machine? NoEducate on keeping a log: YesHeart Failure Action Plan and Zone CheckEvery Day Zone CheckWeigh myself in the morning before breakfast, write it on my logTake my medicine as my doctor ordered every dayCheck for swelling in my feet, ankles, legs and stomachKeep the sodium (salt) intake to under 2000mg a dayKeep the fluid intake to under 2000ml a dayGet some exercise but also take rest periodsTake my heart rate and blood pressure and record it on the vitals logDo not smoke, drink alcohol or use illegal drugsDecide which Zone you are in today!Green- All clear Yellow- Heading for trouble Red- In trouble!Green Zone: ALL CLEAR Target ZoneNo shortness of breathNo weight gain more than 2 pounds in one dayNo swelling in my feet, ankles, legs or stomachNo change in activity levelNo chest painACTION: follow daily routine listed aboveYellow Zone: CAUTION Warning ZoneWeight gain of 3 pounds in 1 day or 5 or more pounds in a weekShort of breathSwelling in feet, ankles, legs, or stomachFeeling of fatigue, less energyDry hacking coughDizzinessNeeding more pillows to sleep comfortable, or having to sit upright to breathe easierACTION: Call you nurse or doctor. You may need your medications adjustedRed Zone: Emergency ZoneShort of breath at restNew or persistent chest painConfused, cannot think clearlyHeart racingPassing out, faintingACTION: CALL YOUR DOCTOR IMMEDIATELY, if unable to reach, CALL 911 or go to the emergency roomQuestions? Concerns? Please call [phone] (BEAT) to speak to a heart failure nurse 25263-0Lscqbivoq encounter KsduCT6448-68-42V93:01:26Telephon e encounter NoteTXT1.2.840.499133.1.13.104.2. 7.2.226056|[id number] for patient saef71751-1RoxyOQLLJDBHXMHMwpmfuv ed C-CDA narrative iqxg416018945Bdnqcuw A Gaudet RN[address] ZszfTqktfhlurIkempgfqoXWSP7953201 257GYBCSSZFOJZYJPBZPPAOHQ5574-88- 17T11:01:261.2.840.553251.1.72.3. 15|1.2.840.764529.1.13.104.2.7.2. 727879_[id number] Nilton Cooley RN [facility] 2024-04-14 11:39:13 7675-20-75F86:39:13 Transplant Intake Form - Heart Transplant RecipientRe-Inquiry: noRecipient name: Lb Miller is a 58 year old maleReferral received via: EmailHow did the patient hear about our program: Jordan Antunez this an urgent evaluation: No, obtain information below and process as usualDoes the patient have cancer: noIs the patient currently admitted to a hospital: yesHas the patient ever been seen at [facility] in the past: yesWhat caused the patients' disease? Primary Diagnosis: Congestive Heart FailureHas the patient ever been evaluated or are they currently under evaluation for transplant at another transplant center? NOIs the patient listed for transplant at this time: NoHas the patient had a previous transplant (s): UnknownHas the patient been hospitalized in the last 3 years: yesPatient Height: 6'1"Patient Weight: 220 lbsRtierraing MD: JOEY Antunezpecialty: CardiologyCare TeamPrimary Care MD: UnknownCurrently on dialysis: yesWhat type of dialysis: UnknownDoes the patient have diabetes: YesDoes patient have an implantable device such as pacemaker ordefibrillator? UnknownDoes the patient have coronary artery disease: yesDoes patient have any heart stents:yesHas patient had any surgeries such as coronary artery bypass, valve repair/replacement: UnknownHave you smoked or do you currently smoke? YesDoes the patient use assistive devices: Cane/walkerForm of transportation: CarDoes the patient have any special needs? Oxygen? UnknownInsurance Information:E-Call[employer] STAR PLUSMember [id number] [id number]--Xaotctvug from 12/27/2023 27963-4Huqyswkwl encounter PbgiXU0602-69-51L95:03:16Telephon e encounter NoteTXT1.2.840.056483.1.13.104.2. 7.2.884528|[id number] for patient nqal99230-2BnvxBSVUTRZVTIKFbrxxre ed C-CDA narrative [id number] [address] ZjheYmgudwodzFxqtqgdqmFJHP3588180 548UXCJQWDPBETLUJQPRVECCC4523-01- 20T12:03:161.2.840.544618.1.72.3. 15|1.2.840.622946.1.13.104.2.7.2. 727879_[id number] Kristina Dorado [facility] 2024-03-20 17:58:37 8930-71-00A16:58:37 He will be admitted if clinically indicated by their assessment. 49918-7Qxjgnidek encounter LpviLV6528-84-56C87:58:56Telephon e encounter NoteTXT1.2.840.012407.1.13.104.2. 7.2.237616|[id number] for patient gzwy92858-0QcalRPDWAOEOIOVGtqnutb ed C-CDA narrative [address]el[address] TujhPztfjzuhyFjcfwoitjCLIR6868705 441BXAHPKABBGAZWTGZEBBMYE0220-98- 25T17:58:561.2.840.503518.1.72.3. 15|1.2.840.509054.1.13.104.2.7.2. 727879_[id number] [facility] 2024-03-20 13:53:19 0999-51-37T13:53:19 Lb Miller is a 58 year old malePt is calling stating that he spoke to a nurse two days ago regarding an assessment call and was informed to get himself admitted in the ER. Please see previous encounters. Pt states that he has not been able to go due to him needing a ride and needing to find someone to care for his service dog. Pt states that his ride should be arriving in about 4-5 hours to take him to the ER today and that he would appreciate if a phone call was made informing the ER that he needs to be admitted as he states they didn't admit him last time. Please advise. 54794-2Gsrplaotd encounter AlzxPO8780-43-21S82:57:30Telephon e encounter NoteTXT1.2.840.206348.1.13.104.2. 7.2.215403|[id number] for patient vcjw32499-4DsbuXTWGPBQPEHQOmdjpnt ed C-CDA narrative [id number] A [address] 176JETNEKFJAOKJOMXSOOSSAO7713-87- 25T13:57:301.2.840.498640.1.72.3. 15|1.2.840.035842.1.13.104.2.7.2. 727879_[id number] Norma Mata [facility] 2024-03-18 17:54:56 6569-03-28R20:54:56 noted 72824-5Tnihiprkg encounter McizAN3116-15-23N86:55:06Telephon e encounter NoteTXT1.2.840.932369.1.13.104.2. 7.2.171007|[id number] for patient upax42331-6TskaOIBSPTYLUNOYjwzzov ed C-CDA narrative [address] 578QBHZFJNUWESRBFEYGGRUXZ3901-92- 23T17:55:061.2.840.073927.1.72.3. 15|1.2.840.680449.1.13.104.2.7.2. 727879_[id number] [facility] 2024-03-18 14:28:29 6062-01-26Z81:28:29 Spoke with Patient, He stated that he has "a lot of fluid" on him and has SOB when walking to the bathroom. Patient reports that his groin area is swollen with fluid. Patient reports that he is not taking his Lasix. He stated that he went to the ED on 03/03/24 and they "didn't do anything for him."I relayed information to Provider and she strongly recommended the Patient Go back to the ED. And Follow-up with Cardiology.I advised patient to go to ED per provider. Patient stated that he did not "have a ride" to the ED. I suggested to call EMS and he responded," The will take me to [place] and I don't want to go to [place]". I encouraged him to do what he could to get the help he needed. He said he would "make some calls". I voiced understanding. 56300-5Ahjsjtfko encounter UrzcVY3899-75-73O50:41:11Telephon e encounter NoteTXT1.2.840.992686.1.13.104.2. 7.2.400793|[id number] for patient bdse41663-3XlfvFGWTNBOFMMGYzirtxg ed C-CDA narrative [id number] J Bunte RN[address] LvxjNzsrnguvbRriifdsptNJLQ7519557 042DWVLHHYQPLTOGREWGACKDE7521-39- 23T14:41:111.2.840.644915.1.72.3. 15|1.2.840.934074.1.13.104.2.7.2. 727879_[id number] Tami Clifford RN [facility] 2024-03-18 09:33:51 0306-90-68X91:33:51 Lb Miller is a 58 year old male patient calling back says he has not received a call back, but needing to speak with someone about getting help with fluid retention and not being able to sleep and shortness of breath with exertion. Please all [phone] signed by Maricel Morin at 03/18/2024 9:35 AM NOK52734-1Uxcjbwfqd encounter GqrmLK7614-60-17L64:35:39Telephon e encounter NoteTXT1.2.840.658686.1.13.104.2. 7.2.792501|7616412970QZIfsnyqavg for patient riha60446-3NoesJNGCQVNWSAJEtvrgxc ed C-CDA narrative tpev360180519Qojrj [address] StreetTXTX[address] 479PNEXKYPIXNCQSKEREUUNYX0929-27- 23T09:35:391.2.840.149042.1.72.3. 15|1.2.840.617235.1.13.104.2.7.2. 727879_[id number] Maricel Morin [facility] 2024-03-17 14:40:35 6463-77-45N10:40:35 Please review and advise. 12223-5Cofgceasf encounter PbuaLT1809-52-54O44:40:49Telephon e encounter NoteTXT1.2.840.342670.1.13.104.2. 7.2.250087|[id number] for patient cjud48192-2DpkyQRXIDSJMVHGYehttqi ed C-CDA narrative ibnu675211731Pkcihh [place] RNUT[address]TXTX[address] 249ZEQUWMUDQJPVRCFPCPQUJF3283-39- 22T14:40:491.2.840.838997.1.72.3. 15|1.2.840.679555.1.13.104.2.7.2. 727879_[id number] Brissa Womack RN [facility] 2024-03-17 10:49:08 4795-24-38I24:49:08 Copied from [facility] #[id number]. Topic: Clinical - Medical Advice>> Mar 17, 2024 10:45 AM Patient Grip Wrapper wrote:Lb Miller is a 58 year old malePt requesting to speak with PCP. Pt state that he went to the hospital and then was sent home. Pt had a hernia repaired and now he is having issues with the hernia repair has fluid build up in his legs and his penis is retracted and won't come out. Pt is requesting to speak with Femi STEWART to get some direction. 15973-3Mxcbcfcfd encounter PdnkFC6578-09-63S26:55:06Telephon e encounter NoteTXT1.2.840.033585.1.13.104.2. 7.2.215172|[id number] for patient shtj47497-7NeuiNOCZAYAYRWNXykdcbx ed C-CDA narrative tmmw862642367Gyie A [address] XijfKyppwbelzYewaohsglGBRI7892808 945UNLXOGTMGQVCJFSCLCUFMN5539-51- 23T17:55:061.2.840.216620.1.72.3. 15|1.2.840.029487.1.13.104.2.7.2. 727879_[id number] Karina Jim Mariama [facility] 2024-03-03 18:53:48 8433-95-06D73:53:48 Pt given printed and verbal discharge instructions regarding shortness of breath, acute on chronic CHF, and bilateral recurrent inguinal hernia without obstruction, encouraged hydration.Prescriptions provided.Pt verbalized understanding of instructions, pt awake alert oriented, resp reg unlabored, skin w/d, color appropriate for race, moves all ext well, pt encouraged to follow up with pcp. Provided information for [facility].Advised to seek medical attention for new/prolonged/worsening of symptoms.Symptoms addressed.No adverse reaction to meds given in ER noted upon discharge.PIV d'cd, dressing to site, catheter intact.Pt leaving in wheelchair, in no apparent distress. 98054-4Kaimrpzqa department KabxTS1731-95-05Y90:55:21Emergenc y department NoteTXT1.2.840.484834.1.13.104.2. 7.2.830224|[id number] for patient oxos94161-4HulnEFWJTNPAWAMKavqrag ed C-CDA narrative njqc425570181Gxyelygu M Rivera RN[address] StreetTXTX[address] 720SBNAUYVSSECEWVWOLNJGAS8929-02- 08T18:55:211.2.840.986470.1.72.3. 15|1.2.840.143038.1.13.104.2.7.2. 727879_[id number] Mitzi Dent RN [facility] 2024-03-03 14:54:45 3316-29-86F01:54:45 Patient states that he cannot breathe while laying down. Patient hx of CHF. Patient states that he has been out of his lasix and has not been able to get it refilled. States that he was recently in [place] and didn't get help. Patient also states that he had surgery on a hernia and the mesh placed and it recently tore and the hernia is back. 00269-1Gxtntzctt department Triage ewnzOL8736-69-86K10:57:34[facility] Triage noteTXT1.2.840.979894.1.13.104.2. 7.2.872373|[id number] for patient pqno88570-8Xdrkrydzt department NoteLNNARRATIVEFormatted C-CDA narrative wjxh483629446Ximj M Hayes RNUT[address] StreetTXTX[address] 567JNKZNFJWWRUDWSABAWLNQE9001-91- 08T14:57:341.2.840.935104.1.72.3. 15|1.2.840.476005.1.13.104.2.7.2. 727879_[id number] Leticia Watkins RN [facility] 2023-07-17 16:11:16 4979-21-31F92:11:16 Appointment rescheduled.Patient aware.Verbalized understanding and agreed. 54672-4Vxgyvqnip encounter FmzqHK8903-06-45N88:11:38Telephon e encounter NoteTXT1.2.840.347575.1.13.104.2. 7.2.264445|[id number] for patient olqq41744-8FkhoZX718796107Vwlnoq A Paramjit [address]TXTX[address] 284KSDYLIEECQIVRTKVMQGZES0213-45- 22T16:11:381.2.840.289891.1.72.3. 15|1.2.840.288136.1.13.104.2.7.2. 727879_[id number] Gina Jim Paramjit [employer] WORK[employer] [facility] 2023-07-17 15:31:32 1775-99-57Y96:31:32 Patient may be rescheduled for follow up 6 to 8 weeks after ICD implantation. Please schedule follow up for December 2023[place] [address]-2Ossgwfhxk encounter UeraEE5039-34-77F58:32:19Telephon e encounter NoteTXT1.2.840.855738.1.13.104.2. 7.2.262393|[id number] for patient calt13665-2RdskNGWHFAFYRF[address]TXTX[address] 283QCOPLNBQSSHZOLRHBAFBZK6266-07- 22T15:32:191.2.840.576192.1.72.3. 15|1.2.840.371499.1.13.104.2.7.2. 727879_[id number] [facility] 2023-07-17 13:46:23 5866-09-67R68:46:23 Attempted to contact patient to offer an appointment in [place] for Dr. Solis. No answer so I left a voicemail. 08791-9Lwvodebnf encounter UwihLV7057-83-31X70:47:07Telephon e encounter NoteTXT1.2.840.345894.1.13.104.2. 7.2.907895|[id number] for patient udka42234-2VdsdNO818829898Phoiq [address]TXTX[address] 936PSOXTBCYERCVLABZOHKILO3279-39- 22T13:47:071.2.840.644502.1.72.3. 15|1.2.840.920975.1.13.104.2.7.2. 727879_[id number] Kassandra Crain [facility] 2023-07-17 09:33:32 8225-18-87W70:33:32 Lb Miller is a 57 year old malePt is calling to verify the specific reason for the upcoming appt. He was seen 07/16 and her needs to know if this appt is necessary.Please f/uHome Work Phone Not on file. Future Appointments Provider Department Dept Phone 07/18/2023 10:00 AM Americo Cortés MD [facility] [phone] Recent Outpatient Visits Yesterday Mitral valve insufficiency, unspecified etiology [facility] [place] [address]-1Figgjemeq encounter QpswYX8480-36-88M36:36:56Telephon e encounter NoteTXT1.2.840.028224.1.13.104.2. 7.2.087845|5860497499TCBfsypbyvu for patient amoo41079-3JxyqFG202247745Egacu[address]TXTX[address] 375OOANWBSMOIGAHOAUAJQMOU3497-84- 22T09:36:561.2.840.268700.1.72.3. 15|1.2.840.897136.1.13.104.2.7.2. 727879_[id number] [facility] 2023-07-16 11:15:20 6894-31-47K21:15:20 Called pt to reschedule ICD insertion with dr cortés, due to hitting coverage max with [facility] insurance. Pt agreed to reschedule for 11/01 pending insurance approval and renewal. 30047-8Mbyymgvuw encounter DehxLA8544-92-68A30:20:53Telephon e encounter NoteTXT1.2.840.073473.1.13.104.2. 7.2.990754|[id number] for patient vbor12473-9PqluJT827458734Wgfmj [address]TXTX[address] 582IXGIFSGGTZLQATNJWCHHRK5281-51- 21T11:20:531.2.840.519760.1.72.3. 15|1.2.840.474256.1.13.104.2.7.2. 727879_[id number] Cherry Medrano [facility] 2023-07-06 12:55:30 0156-32-32S48:55:30 CALLED TO UPDATE PT'S S.O., LA. RANG NO ANSWER, DID NOT LVM. AT 1258 80850-1Ieesk GukxFT8369-54-88V95:50:53Nurse NoteTXT1.2.840.823576.1.13.104.2. 7.2.517615|4513385031JGWjmftodxe for patient quet33053-9ZxlhTX357399841Hhgexx C Damian RN[address] DygaJfzentgtwLlwykxeyuJTIA7734557 399VHMRUMNWYQUMPRKTFLPUFT5131-12- 11T15:50:531.2.840.522744.1.72.3. 15|1.2.840.471252.1.13.104.2.7.2. 727879_[id number] Jesse Reyes RN [facility] 2023-07-06 12:54:00 1086-38-51C13:54:00 BRIEF OPERATIVE NOTEDate of Surgery: 07/06/2023Surgeon(s) and Role: * Annita Grijalva MD - Primary * Waqar Infante MD - Resident - Assisting * Liu Swift MD - Resident - AssistingPre-Op Diagnosis:Unilateral inguinal hernia without obstruction or gangrene, recurrence not specified [K40.90]Post-Op Diagnosis Codes: * Unilateral inguinal hernia without obstruction or gangrene, recurrence not specified [K40.90]Procedures:Procedure(s) (LRB):INGUINAL HERNIORRHAPHY (Right)CPT: 90063,09014Kso Complications Encounters: None Estimated Blood Loss: 10 ccSpecimens Removed: * No specimens in log *Implant Name Type Inv. Item Serial No. Frame Fixer Lot No. LRB No. Used Action MESH ETH[employer]ON PROLENE 2.4 X 5.4 PRESHAPED #PMLK - SN/A MESH MESH [employer] PROLENE 2.4 X 5.4 PRESHAPED #PMLK N/A [employer] QGBEBR Right 1 Implanted Patient's Condition: StableFindings: Direct and indirect herniaAny other important information: Discharge with follow up in 2 weeksPlease see dictated operative report for additional detail. 80547-7Nkxtxmqc zznuIF6702-57-14V84:50:46Progress noteTXT1.2.840.048331.1.13.104.2. 7.2.182073|[id number] for patient eqkw10113-7OeulZRGXONISXO[address] QgsgHuclsftqlMqxdqdxibANOD6428298 210WXDAADEBIMENZMKNFDESEB6374-20- 11T16:50:461.2.840.495182.1.72.3. 15|1.2.840.680600.1.13.104.2.7.2. 727879_[id number] [facility] 2023-06-28 15:21:01 5838-37-65C63:21:01 Images from the original note were not included.Your procedure is at [facility] on 07/06/23. The address is [address] [place] [address], [facility]. [facility] nursing staff will call you the [...] voiced no further questions at this time. 47341-2Mwgtw HvfgDN5246-63-11S08:26:47Nurse NoteTXT1.2.840.051865.1.13.104.2. 7.2.612504|[id number] for patient alik61237-1HtspOJ937447774Kvu M Gallardo RN[address] StreetTXTX[address] 259HHOQPQLWJBZDMRGWXNZGTV9189-90- 03T15:26:471.2.840.886790.1.72.3. 15|1.2.840.472239.1.13.104.2.7.2. 727879_[id number] Evelyn Saleh RN [facility] 2023-06-26 08:45:26 8403-50-57C39:45:26 Thank you, Dr. Kirk. 45744-8Addkiinbu encounter BrinJT1557-27-83A39:45:51Telephon e encounter NoteTXT1.2.840.341804.1.13.104.2. 7.2.039404|[id number] for patient tuez36315-4MmxfOW462990007Wolbd L Land RN[address] StreetTXTX[address] 568GTFIJYTGXUFKDMMJYYKTQS0963-26- 01T08:45:511.2.840.497486.1.72.3. 15|1.2.840.868928.1.13.104.2.7.2. 727879_[id number] Tanisha Chavez GABBIE [facility] 2023-06-25 20:26:02 5066-30-87C40:26:02 Those referrals do not affect surgery clearance. Proceed with surgery. 64820-9Qmiqjxwtb encounter QkfoTV0756-40-38D83:26:29Telephon e encounter NoteTXT1.2.840.772461.1.13.104.2. 7.2.258050|[id number] for patient futd55217-5IimnCVFEWVMTTE[address] TodxWowmwouvgEiwlwwvrjVVXK0738176 386WYRYJGAGWYUOSYCPFSOFJR6041-53- 31T20:26:291.2.840.931182.1.72.3. 15|1.2.840.073851.1.13.104.2.7.2. 727879_[id number] [facility] 2023-06-25 13:26:22 9475-25-90M79:26:22 Images from the original note were not included.The following patient is scheduled for right inguinal hernia repair with at [facility] Surgery Department. The procedure is currently scheduled on 07/06/23 and requires cardiac clearance prior to the procedure.Anesthesia requesting clarification regarding cardiac clearance.Dr. Kirk note on 05/21/23 recommended repeat echo and if EF was found to be <35%, refer to EP for defibrillator. (see note)Patient had repeat echo 06/07/23, EF found to be 15-20%. Per Dr. Kirk recommendations, patient has appointment's scheduled with both EP and interventional on 07/18/23, and 07/16/23 respectively. (see below) Per Dr. Kirk addendum on 06/08/23, patient is cleared for surgery with moderate risk. (see below)Clarification to proceed with case on 07/06/23 with EF 15-20% vs waiting for EP and interventional appointments? Thank you, Kartik Alexander DNP, [facility] Hospitalment of AnesthesiologyThank you,Tanisha Chavez Pre-op Screening Department 29379-7Huufhfikl encounter NtfhVT0072-88-67K35:38:29Telephon e encounter NoteTXT1.2.840.644835.1.13.104.2. 7.2.861212|[id number] for patient jyxd87540-4QmusRETLRAMAGK[address] RoicKuoypmfgtOmmehtjugKTRK7690531 858EUFDKEHKYYHHQZTWZIANEA1452-28- 31T13:38:291.2.840.020470.1.72.3. 15|1.2.840.892387.1.13.104.2.7.2. 727879_[id number] [facility]
[2024-05-23 02:28] LABS: Absolute Basophils 0.1 K/uL (0-0.5); Absolute Eosinophils 0.2 K/uL (0-0.5); Absolute Lymphocytes (CBC) 1.6 K/uL (0.7-4.9); Absolute Monocytes 0.5 K/uL (0.1-1.3); Absolute Neutrophil 5.3 K/uL (1.8-8.0); Basophils % 0.7 % (0-1.3); Eosinophils % 2.2 % (0-4.4); Hematocrit 30.3 % (39.6-49.0); Hemoglobin 9.8 g/dL (13.6-17.9); MCH 26.8 pg (27.0-35.0); MCHC 32.4 g/dL (32.0-36.0); MCV 82.7 fL (80-100); MPV 7.7 fL (7.6-11.3); Monocytes % 7.1 % (3.3-12.3); Nucleated Red Blood Cells % 0.1 % (0-0); Platelets 250 thou/uL (152-406); RBC Red Blood Cell Count 3.67 M/uL (4.33-5.43); Red Cell Distribution Width 27.8 % (12.1-15.2)
[2024-05-23 02:31] LABS: PT Prothrombin Time 13.1 SECONDS (9.4-12.5); PTT, Activated Partial Thromb 31.6 SECONDS (24.3-36.9); Protime INR 1.2
[2024-05-23 02:44] LABS: ALT/SGPT 15 U/L (16-61); AST/SGOT 13 U/L (15-37); Albumin 3.2 g/dL (3.4-5.0); Albumin/Globulin Ratio 0.7 (1.1-1.8); Alkaline Phosphatase 183 U/L (45-117); Anion Gap 9.7 mEq/L (5.0-15.0); BUN Blood Urea Nitrogen 16 mg/dL (7-18); Bicarbonate 29 mEq/L (21-32); Bilirubin Direct 0.4 mg/dL (0-0.2); Bilirubin Indirect, Calculated 0.5 mg/dL (0.2-0.8); Bilirubin Total 0.9 mg/dL (0.2-1.0); Globulin 4.5 g/dL (2.3-3.5); Glomerular Filtration Rate 65 ml/min (=/>90); Glucose Level 136 mg/dL (74-106); Magnesium 2.5 mg/dL (1.6-2.4); NT PRO-BNP 5136 pg/mL (<125); Potassium 2.7 mEq/L (3.5-5.1); Protein, Total 7.7 g/dL (6.4-8.2); Sodium Level 134 mEq/L (136-145)
[2024-05-23] MEDS ORDERED: POTASSIUM 25 MEQ EFFERV TAB ONE ×2 (03:33→03:51)
--- NOTE | 2024-05-23 03:49 | ER ---
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 [place] states " brought bm8 pt in to be medically cleared for incarceration". Coronavirus screen: Client denies travel out of the [place] in the last 14 days. At this time, the client does not indicate any symptoms associated with coronavirus-19. Ebola Screen: Patient negative for fever greater than or equal to 101.5 degrees Fahrenheit, and additional compatible Ebola Virus Disease symptoms Patient denies exposure to infectious person. Patient denies travel to an Ebola-affected area in the 21 days before illness onset. No symptoms or risks identified at this time. Initial Sepsis Screen: Does the patient meet any 2 criteria? No. Patient's initial sepsis screen is negative. Does the patient have a suspected source of infection? No. Patient's initial sepsis screen is negative. Risk Assessment: Do you want to hurt yourself or someone else? Patient reports no desire to harm self or others. Onset of symptoms was May 23, 2024 at 00:30. 01:55 Method Of Arrival: Law Enforcement: Lola FERNANDEZ [facility] 01:55 Acuity: JAVON 2 bm8 Triage Assessment: 01:57 General: Appears in no apparent distress. uncomfortable, Behavior is calm, cooperative, bm8 appropriate for age. Pain: Complains of pain in chest Pain does not radiate. Pain currently is 7 out of 10 on a pain scale. Quality of pain is described as pressure. EENT: No deficits noted. No signs and/or symptoms were reported regarding the EENT system. Neuro: No deficits noted. Level of Consciousness is awake, alert, obeys commands, Oriented to person, place, time, situation, Appropriate for age. Cardiovascular: No deficits noted. Reports chest pain, lightheadedness, Heart tones S1 S2 present Capillary refill < 3 seconds Patient's skin is warm and dry. Respiratory: Airway is patent Trachea midline Respiratory effort is even, unlabored, Respiratory pattern is regular, symmetrical, Breath sounds are clear bilaterally. GI: No deficits noted. No signs and/or symptoms were reported involving the gastrointestinal system. : No deficits noted. No signs and/or symptoms were reported regarding the genitourinary system. Derm: No deficits noted. No signs and/or symptoms reported regarding the dermatologic system. Musculoskeletal: No deficits noted. No signs and/or symptoms reported regarding the musculoskeletal system. Historical: - Allergies: :57 Morphine; headaches; bm8 - Home Meds: :57 Unable to obtain [Active]; bm8 - PMHx: :57 Congestive heart failure; diabetes mellitus; Hypertensive disorder; AK; bm8 - PSHx: :57 Cardiac stents x2; bm8 - Immunization history:: Adult Immunizations up to date. - Infectious Disease History:: Denies. - Family history:: not pertinent. - Social history:: Smoking status: unknown. Screenin:40 [facility] ED Fall Risk Assessment (Adult) History of falling in the last 3 months, rg5 including since admission Yes- single mechanical fall (1 pt) Confusion or Disorientation No (0 pts) Intoxicated or Sedated No (0 pts) Impaired Gait No (0 pts) Mobility Assist Device Used No (0 pt) Altered Elimination No (0 pt) Score/Fall Risk Level 0 - 2 = Low Risk Oriented to surroundings, Maintained a safe environment, Educated pt \\T\\ family on fall prevention, incl call for assistance when getting out of bed, Hourly rounding (assess needs \\T\\ fall precautionary measures) done. Abuse screen: Denies threats or abuse. Nutritional screening: No deficits noted. Tuberculosis screening: No symptoms or risk factors identified. Assessment: 03:38 Pain: Denies pain. Pain began. Neuro: Oriented to person, place, time. Cardiovascular: rg5 Capillary refill < 3 seconds. Respiratory: Airway is patent Trachea midline. GI: Abd is soft and non tender. : No signs and/or symptoms were reported regarding the genitourinary system. Vital Signs: 01:55 BP 104 / 84; Pulse 99; Resp 18; Temp 98.4; Pulse Ox 99% on R/A; Weight 92.53 kg; Height bm8 6 ft. 1 in. ; Pain 7/10; 03:40 BP 112 / 80; Pulse 110; Resp 18; Temp 98; Pulse Ox 97% ; Pain 0/10; rg5 01:55 Body Mass Index 26.91 (92.53 kg, 185.42 cm) bm8 01:55 Pain Scale: Adult bm8 03:40 Pain Scale: Adult rg5 Jose Coma Score: 03:40 Eye Response: spontaneous(4). Motor Response: obeys commands(6). Verbal Response: rg5 oriented(5). Total: 15. ED Course: 01:47 Patient arrived in ED. gael 01:47 Rashawn Rivera MD is Attending Physician. [facility] 01:57 Triage completed. bm8 01:57 Arm band placed on right wrist. bm8 02:05 XRAY Chest (1 view) In Process Unspecified. EDMS 02:16 Initial lab(s) drawn, by me, sent to lab. EKG done, by ED staff, reviewed by Rashawn Rivera MD. Inserted saline lock: 22 gauge in left antecubital area, using aseptic technique. Blood collected. 03:40 Patient has correct armband on for positive identification. Bed in low position. Call rg5 light in reach. Side rails up X 1. Client placed on continuous cardiac and pulse oximetry monitoring. NIBP monitoring applied. monitor car operator on. Pulse ox on. Door closed. Warm blanket given. Head of bed Elevated. 03:40 No provider procedures requiring assistance completed. intact. rg5 03:48 Lan Saleh, RN is Primary Nurse. rg5 03:59 Provided Education on: post er care. rg5 03:59 O2 via not needed. rg5 Administered Medications: 03:37 Drug: Potassium PO Effervescent Tablet 50 mEq PO once; dissolve in 4 ounces of water or rg5 juice REPEAT IN 1 HOUR Route: PO; 03:57 Follow up: Response: No adverse reaction rg5 03:57 Drug: Potassium PO Effervescent Tablet 50 mEq PO once; dissolve in 4 ounces of water or rg5 juice Route: PO; 03:57 Follow up: Response: (VIS) Vaccine information sheet provided today. Questions and/or rg5 concerns addressed. VIS edition date: Jul 01, 2021.; No adverse reaction 03:57 Drug: Furosemide IVP 20 mg IVP once; give over 2 minutes Route: IVP; Site: left rg5 antecubital; 03:57 Follow up: Response: No adverse reaction rg5 Medication: 03:40 VIS not applicable for this client. rg5 Outcome: 03:49 Discharge ordered by MD. mayo 03:58 Discharged to Law Enforcement rg5 03:58 Condition: stable 03:58 Discharge instructions given to patient, Instructed on discharge instructions, follow up and referral plans. medication usage, 04:14 Patient left the ED. rg5 Signatures: Dispatcher [employer] EDRashawn Upton MD MD cha McDonald, Brad, RN RN bm8 Lan Saleh, RN RN rg5
--- NOTE | 2024-05-23 03:49 | EDPHYS ---
Physician Documentation [facility] Name: Lb Epstein Age: 58 yrs Sex: Male : 1965 Arrival Date: 05/23/2024 Time: 01:40 Bed 20 Private MD: ED Physician Rashawn Rivera HPI: 05/23 01:52 This 58 yrs old Male presents to ER via Unassigned with complaints of WEAK, gael HERE FOR CLEARENCE FOR INCARCERATION. 01:52 UNDER ARREST. The patient has experienced near-syncope, felt dizzy. Onset: The gael symptoms/episode began/occurred yesterday. Duration: This was a single episode, that lasted an unknown period of time. Context: the episode(s) was witnessed, by family, occurred at home. Associated injury: The patient did not suffer any apparent associated injury. Current symptoms: Currently, the patient is not experiencing any symptoms. Historical: - Allergies: 01:57 Morphine; headaches; bm8 - Home Meds: 01:57 Unable to obtain [Active]; bm8 - PMHx: 01:57 Congestive heart failure; diabetes mellitus; Hypertensive disorder; [place]; bm8 - PSHx: 01:57 Cardiac stents x2; bm8 - Immunization history:: Adult Immunizations up to date. - Infectious Disease History:: Denies. - Family history:: not pertinent. - Social history:: Smoking status: unknown. ROS: 01:52 Constitutional: Negative for fever, chills, and weight loss, Eyes: Negative for injury, gael pain, redness, and discharge, ENT: Negative for injury, pain, and discharge, Neck: Negative for injury, pain, and swelling, Cardiovascular: Negative for chest pain, palpitations, and edema, Respiratory: Negative for shortness of breath, cough, wheezing, and pleuritic chest pain, Abdomen/GI: Negative for abdominal pain, nausea, vomiting, diarrhea, and constipation, Back: Negative for injury and pain, : Negative for injury, bleeding, discharge, and swelling, MS/Extremity: Negative for injury and deformity, Skin: Negative for injury, rash, and discoloration, Neuro: Negative for headache, weakness, numbness, tingling, and seizure, Psych: Negative for depression, anxiety, suicide ideation, homicidal ideation, and hallucinations, Allergy/Immunology: Negative for hives, rash, and allergies, Endocrine: Negative for neck swelling, polydipsia, polyuria, polyphagia, and marked weight changes, Hematologic/Lymphatic: Negative for swollen nodes, abnormal bleeding, and unusual bruising, Exam: 01:52 Constitutional: This is a well developed, well nourished patient who is awake, alert, gael and in no acute distress. Head/Face: Normocephalic, atraumatic. Eyes: Pupils equal round and reactive to light, extra-ocular motions intact. Lids and lashes normal. Conjunctiva and sclera are non-icteric and not injected. Cornea within normal limits. Periorbital areas with no swelling, redness, or edema. ENT: Nares patent. No nasal discharge, no septal abnormalities noted. Tympanic membranes are normal and external auditory canals are clear. Oropharynx with no redness, swelling, or masses, exudates, or evidence of obstruction, uvula midline. Mucous membranes moist. Neck: Trachea midline, no thyromegaly or masses palpated, and no cervical lymphadenopathy. Supple, full range of motion without nuchal rigidity, or vertebral point tenderness. No Meningismus. Chest/axilla: Normal chest wall appearance and motion. Nontender with no deformity. No lesions are appreciated. Cardiovascular: Regular rate and rhythm with a normal S1 and S2. No gallops, murmurs, or rubs. Normal PMI, no JVD. No pulse deficits. Respiratory: Lungs have equal breath sounds bilaterally, clear to auscultation and percussion. No rales, rhonchi or wheezes noted. No increased work of breathing, no retractions or nasal flaring. Abdomen/GI: Soft, non-tender, with normal bowel sounds. No distension or tympany. No guarding or rebound. No evidence of tenderness throughout. Back: No spinal tenderness. No costovertebral tenderness. Full range of motion. Male : Normal genitalia with no discharge or lesions. Skin: Warm, dry with normal turgor. Normal color with no rashes, no lesions, and no evidence of cellulitis. Neuro: Awake and alert, GCS 15, oriented to person, place, time, and situation. Cranial nerves II-XII grossly intact. Motor strength 5/5 in all extremities. Sensory grossly intact. Cerebellar exam normal. Normal gait. Psych: Awake, alert, with orientation to person, place and time. Behavior, mood, and affect are within normal limits. 01:52 Musculoskeletal/extremity: ROM: no acute changes, Circulation is intact in all extremities. Sensation intact. Compartment Syndrome exam of affected extremity: is normal. Joints: All joints appear normal with full range of motion. Weight bearing: able to fully bear weight, without difficulty, DVT Exam: no pain, no tenderness, negative Homans' sign noted on exam, no appreciated bluish discoloration, no erythema, no increased warmth, swelling, 02:09 ECG was reviewed by the Attending Physician. [facility] Vital Signs: 01:55 BP 104 / 84; Pulse 99; Resp 18; Temp 98.4; Pulse Ox 99% on R/A; Weight 92.53 kg; Height bm8 6 ft. 1 in. ; Pain 7/10; 03:40 BP 112 / 80; Pulse 110; Resp 18; Temp 98; Pulse Ox 97% ; Pain 0/10; rg5 01:55 Body Mass Index 26.91 (92.53 kg, 185.42 cm) bm8 01:55 Pain Scale: Adult bm8 03:40 Pain Scale: Adult rg5 Jose Coma Score: 03:40 Eye Response: spontaneous(4). Motor Response: obeys commands(6). Verbal Response: rg5 oriented(5). Total: 15. MDM: 01:47 Patient medically screened. gael 01:47 Patient medically screened. gael 01:58 Differential Diagnosis sepsis. Differential Diagnosis: aortic aneurysm, cardiac gael arrhythmia, cerebrovascular accident, drug effect, emotional response, GI bleed, idiopathic syncope, vasovagal episode. Data reviewed: vital signs, nurses notes, lab test result(s), EKG, radiologic studies, plain films. Consideration of Admission/Observation Escalation of care including admission/observation considered. I considered the following discharge prescriptions or medication management in the emergency department Medications were administered in the Emergency Department. See MAR. Independent interpretation of the following test(s) in the Emergency Department EKG: See my EKG interpretation above. Test considered but Not performed: Ultrasound NO 2 D ECHO. Historians other than the Patient: Law enforcement: POLICE, UNDER ARREST. Care significantly affected by the following chronic conditions: Diabetes, Hypertension, Congestive Heart Failure, CAD, [place], MILRINONE DRIP , PICC RIGHT ARM. 05/23 01:49 Order name: Basic Metabolic Panel; Complete Time: 03:22 gael 05/23 01:49 Order name: CBC with Diff 05/23 01:49 Order name: LFT's; Complete Time: 03:22 [facility] 05/23 01:49 Order name: Magnesium; Complete Time: 03:22 [facility] 05/23 01:49 Order name: NT PRO-BNP; Complete Time: 03:22 [facility] 05/23 01:49 Order name: PT-INR; Complete Time: 03:22 [facility] 05/23 01:49 Order name: Troponin HS; Complete Time: 03:22 [facility] 05/23 01:49 Order name: Acetaminophen; Complete Time: 03:22 [facility] 05/23 01:49 Order name: ETOH Level; Complete Time: 03:22 [facility] 05/23 01:49 Order name: Ptt, Activated; Complete Time: 03:22 [facility] 05/23 01:49 Order name: Salicylate; Complete Time: 03:22 [facility] 05/23 02:35 Order name: CBC Smear Scan EDWV 05/23 01:49 Order name: XRAY Chest (1 view) [facility] 05/23 01:49 Order name: EKG; Complete Time: 01:50 [facility] 05/23 01:49 Order name: Cardiac monitoring; Complete Time: 02:16 [facility] 05/23 01:49 Order name: EKG - Nurse/Tech; Complete Time: 02:16 [facility] 05/23 01:49 Order name: IV Saline Lock; Complete Time: 02:16 [facility] 05/23 01:49 Order name: Labs collected and sent; Complete Time: 02:16 [facility] 05/23 01:49 Order name: O2 Per Protocol; Complete Time: 02:16 [facility] 05/23 01:49 Order name: O2 Sat Monitoring; Complete Time: 02:16 [facility] EC:09 Rate is 110 beats/min. Rhythm is regular. QRS [place] is Normal. AK interval is normal. [facility] QRS interval is normal. No Q waves. T waves are Normal. No ST changes noted. Clinical impression: Sinus tachycardia and No evidence of ischemia. Interpreted by me. Reviewed by me. Administered Medications: 03:37 Drug: Potassium PO Effervescent Tablet 50 mEq PO once; dissolve in 4 ounces of water or rg5 juice REPEAT IN 1 HOUR Route: PO; 03:57 Follow up: Response: No adverse reaction rg5 03:57 Drug: Potassium PO Effervescent Tablet 50 mEq PO once; dissolve in 4 ounces of water or rg5 juice Route: PO; 03:57 Follow up: Response: (VIS) Vaccine information sheet provided today. Questions and/or rg5 concerns addressed. VIS edition date: Jul 01, 2021.; No adverse reaction 03:57 Drug: Furosemide IVP 20 mg IVP once; give over 2 minutes Route: IVP; Site: left rg5 antecubital; 03:57 Follow up: Response: No adverse reaction rg5 Disposition Summary: 05/23/24 03:49 Discharge Ordered Notes: Location: Home gael Problem: chronic gael Symptoms: are unchanged gael Condition: Fair gael Diagnosis - Chronic combined systolic (congestive) and diastolic (congestive) heart failure - gael ON MILRINONE DRIP - Weakness gael - Presence of cardiac pacemaker gael - Anemia, unspecified gael - Hypokalemia gael - Pleural effusion in other conditions classified elsewhere - BILATERAL gael Followup: gael - With: Private Physician - When: 2 - 3 days - Reason: Recheck today's complaints, Continuance of care, Re-evaluation by your physician Discharge Instructions: - Discharge Summary Sheet gael - Anemia gael - Heart Failure, Diagnosis gael - Pleural Effusion gael - Weakness gael - Fatigue gael - Weakness, [id number] gael - Heart Failure, Diagnosis, [id number] gael - Biventricular Pacemaker Implantation, Care After gael - Hypokalemia gael - Deconditioning gael - Heart Failure, Self-Care gael - Heart Failure, Self-Care, [id number] gael - Supporting Someone With Heart Failure gael Forms: - Medication Reconciliation Form gael - Antibiotic Education gael - Prescription Opioid Use gael - Patient Portal Instructions gael - Leadership Thank You Letter [facility] Prescriptions: - Potassium Chloride 20 meq Oral Packet - take 1 packet ORAL route every 12 hours 1 packet in 6 (six) ounces of water or gael juice; Take after meal; 14 packet; Refills: 0, Product Selection Permitted Signatures: Dispatcher [employer] Rashawn Jacobo MD MD cha McDonald, Brad, RN RN bm8 Lan Saleh, GABBIE RN rg5 Corrections: (The following items were deleted from the chart) 01:50 01:50 BASIC METABOLIC PANEL+C.LAB.BRZ ordered. EDMS EDMS 01:50 01:50 CBC+H.LAB.BRZ ordered. EDMS EDMS 01:50 01:50 HEPATIC FUNCTION+C.LAB.BRZ ordered. EDMS EDMS 01:50 01:50 MAGNESIUM+C.LAB.BRZ ordered. EDMS EDMS 01:50 01:50 PROBNP+C.LAB.BRZ ordered. EDMS EDMS 01:50 01:50 PROTIME (+INR)+COAG.LAB.BRZ ordered. EDMS EDMS 01:50 01:50 Troponin High Sensitivity+C.LAB.BRZ ordered. EDMS EDMS 01:50 01:50 ACETAMINOPHEN+C.LAB.BRZ ordered. EDMS EDMS 01:50 01:50 ETHANOL+C.LAB.BRZ ordered. EDMS EDMS 01:50 01:50 PTT, ACTIVATED+COAG.LAB.BRZ ordered. EDMS EDMS 01:50 01:50 SALICYLATE+C.LAB.BRZ ordered. EDMS EDMS 01:50 01:50 Urinalysis+U.LAB.BRZ ordered. EDMS EDMS 01:50 01:50 URINE DRUG SCREEN+UC.LAB.BRZ ordered. EDMS EDMS 01:51 01:49 Suicide Screening ([place]) ordered. gael mayo
[2024-05-23] MEDS ORDERED: FUROSEMIDE 20 MG/ 2ML VIAL ONE (03:52)
[2024-05-23 04:25] VITALS: BP 112/80; TEMP 98; O2SAT 97
[2024-05-23 05:00] LABS: Anisocytosis 3+; Blood Morphology Comment NOTED (NOT SEEN); Burr Cells 1+; Ovalocytes 3+; Platelet Estimate ADEQ; White Blood Cell Scan OK (OK)
--- NOTE | 2024-05-24 14:08 | EKG ---
Test Date: 2024-05-23 Test Time: 02:03:42 Cushion Worker: KT MEASUREMENT RESULTS: Intervals: Rate: 110 SC: 178 QRSD: 106 QT: 368 QTc: 498 [place]: P: 51 SC: 178 QRS: -12 T: 37 INTERPRETIVE STATEMENTS: Sinus tachycardia with occasional and consecutive premature ventricular complexes Possible Left atrial enlargement Inferior infarct, age undetermined Abnormal ECG Compared to ECG 02/09/2024 23:34:36 Fusion complex(es) no longer present Myocardial infarct finding still present Electronically Signed On 05-24-24 14:06:00 CDT by Vamsi Huerta
--- NOTE | 2024-05-25 10:13 | RAD REPORT ---
EXAM DESCRIPTION: RAD - Chest Single View - 05/23/2024 2:04 am CLINICAL HISTORY: DYSPNEA TECHNIQUE: Frontal view of the chest. COMPARISON: XR Chest dated 10/08/2023 FINDINGS: Lungs: Central pulmonary vascular and interstitial prominence and patchy bilateral perih ilar and basilar opacities. Pleural space: Blunting of the costophrenic angles bilaterally. No pneumothorax. Heart: The cardiac silhouette is enlarged, stable, in part accentuated by portable technique. Mediastinum: Unremarkable. Normal mediastinal contour. Bones/joints: Unremarkable. No acute fracture. Vasculature: Thoracic aortic atherosclerosis. Tubes, lines and devices: Interval placement of a left chest wall dual-lead pacer/ICD. Right uppe r extremity PICC tip projects over the proximal superior vena cava. IMPRESSION: Findings suggestive of pulmonary congestion including small bilateral pleural effusions. Superimposed infection not excluded. Electronically signed by: Ino Santos MD 05/23/2024 02:35 AM CDT Due to temporary technical issues with the PACS/Fluency reporting system, reports are being signed by the in house radiologist without review as a courtesy to ensure prompt reporting. The interpreting r adiologist is fully responsible for the content of the report.
== END 2024-05-23 04:14 | disposition home or self-care (01) ==
LOC: ER 01:40
DX: I50.42 Chronic combined systolic (congestive) and diastolic (congestive) heart failure (principal); D64.9 Anemia, unspecified; E87.6 Hypokalemia; J91.8 Pleural effusion in other conditions classified elsewhere; Z95.0 Presence of cardiac pacemaker; I10 Essential (primary) hypertension; Z95.818 Presence of other cardiac implants and grafts
CPT/HCPCS: 93005; 85025; 80048; 36415; 83735; 85610; 80076; 85730; 84484; 83880; 71045; 96374; 99285; 80143; 80179; 82077; J1940